=== PATIENT | female | born 1950 | race Caucasian/White ===

== ENCOUNTER → 2017-07-01 10:55 | Outpatient (CLI) | payer MEDICARE, OTHER, SELFPAY ==
--- NOTE | 2017-07-01 10:57 | HPBD_ITS ---
STUDY: DUAL ENERGY X-RAY ABSORPTIOMETRY / DXA REASON FOR EXAM: Female, 67 years old. The patient is postmenopausal. No loss of height. TECHNIQUE: Bone Mineral Density (BMD) measurements of lumbar spine and bilateral hips were obtained. COMPARISON: None. FINDINGS: Lumbar Spine (L1-L4): g/cm2 (0.958) / T-score (-1.8) / Z-score (-0.2) Findings are suggestive of osteopenia with a moderate fracture risk. Left Femur Total: g/cm2 (0.728) / T-score (-2.2) / Z-score (-1.0) Left Femoral Neck: g/cm2 (0.735) / T-score (-2.2) / Z-score (-0.7) Right Femur Total: g/cm2 (0.756) / T-score (-2.0) / Z-score (-0.7) Right Femoral Neck: g/cm2 (0.738) / T-score (-2.2) / Z-score (-0.6) HPBD/Dexa Bone Density Study (HP) IMPRESSION: The patient is considered osteopenic as outlined below according to World Joe Organization (WHO) criteria with a moderate fracture risk. Reference Information: The T-score is the number of standard deviations above or below the standard which is normal for young adults at their peak bone mineral density. The World Health Organization (WHO) interprets the T-scores as follows: Above -1 Normal bone density Between -1 and -2.5 Osteopenia Equal to / or below -2.5 Osteoporosis As a practical clinical guideline, osteopenia may be graded as follows: Mild -1 through -1.5 Moderate -1.6 through -2.0 Severe -2.1 through -2.4 The Z-score is the number of standard deviations above or below age-matched controls. A Z-score of less than -1.5 would be considered abnormal. References: 1. NIH Osteoporosis and Related Bone Diseases http://www.osteo.org 2. International Society for Clinical Densitometry http://www.iscd.org 3. National Osteoporosis Foundation http://www.nof.org Electronically Signed: Eliseo Amaya MD at 13:49 EST Tel [phone], Service support ,
== END ==
PROVIDERS: Family Provider Family Medicine; PCP Family Medicine
DX: Z78.0 Asymptomatic menopausal state (principal); Z13.820 Encounter for screening for osteoporosis
CPT/HCPCS: 77080

== ENCOUNTER 2017-08-01 14:00 | Outpatient (RCR) | payer MEDICARE, OTHER, SELFPAY ==
--- NOTE | 2017-06-20 10:23 | HP.PTEVAL ---
Patient's Visit Information DANISHA DEVINE is a 67 year old F referred to Physical Therapy by DO JOSHUA Hernandez with a diagnosis of ALLEGRA KNEE OA, STRAIN OF MS/FASC/TND LEFT THIGH.. Date of Evaluation: 06/20/17 Physical Therapist: Sonia Trevino Visit Plan Frequency: 2x /Week Duration: 4-6 Weeks Plan: LEFT KNEE AND THIGH US. (PATIENT HAS HOME TENS UNIT AND HAS ALREADY STARTED USING IT WITH SOME BENEFIT). ALLEGRA LE ROM, STRETCHING AND STRENGTHENING. NO LUMBAR TREATMENT AT PATIENTS REQUEST. PATIENT REFUSED 3X'S A WEEK. AGREEABLE TO 2X'S A WEEK ON TRIAL BASIS ONLY. - Subjective Subjective: Work/Leisure: RETIRED 2011. 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 ALSO GOES TO THE [employer]LE[employer] AND WORKS OUT DOING STRETCHING AND TONING ONCE A WEEK. 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 Disability: NOT NOW BUT FROM ABOUT 2011 UNTIL RECENTLY SHE WAS. NOW ON MEDICARE. Present symptoms: LEFT HIP/GROIN/THIGH, LEFT KNEE. RIGHT BUTTOCK PAIN AND ANTERIOR HIP/GROIN. INTERMITTENT MILD RIGHT KNEE PAIN. PATIENT DENIES ALLEGRA LE NUMBNESS AND TINGLING. Present since: LEFT KNEE PAIN STARTED BEGINNING OF MAY 2017 THEN THE LEFT THIGH AND HIP. RIGHT KNEE PAIN ALSO STARTED RECENTLY. LEFT CALF LOCKS UP. Pain Scale: RIGHT KNEE PAIN RANGING 0/10 TO 1/10. LEFT KNEE PAIN RANGING 0/10 TO 10/10. LEFT HIP/THIGH PAIN RANGING 0/10 TO 10/10. Currently: RIGHT KNEE PAIN 0/10, LEFT KNEE PAIN 0/10, LEFT HIP/THIGH PAIN RANGING 0/10 TO 10/10. Commenced as a result of: NO APPARENT REASON OTHER THAN PATIENT SUSPECTS THE ELIPTICAL BECAUSE BECAUSE THIS WAS THE NEWEST ACTIVITY AND WAS ADDED INTO HER ROUTINE IN MARCH 2017. Symptoms at onset: LEFT KNEE. Worse: EXERCISING, DANCING, WALKING, RISING FROM SITTING, BENDING, STANDING, TURNING OVER IN BED, SOMETIMES LYING DOWN, SOMETIMES SITTING, GETTING IN/OUT OF CAR, STEPS. Better: IBUPROFEN, ICE. REFUSES ANY OTHER MEDICINE. Disturbed sleep: YES. Previous history/Previous treatment: HISTORY OF LEFT KNEE PAIN A COUPLE YEARS AGO AND RECEIVED A SHOT AND US AND FULL FULL RECOVERY. NO PRIOR HISTORY OF RIGHT KNEE OR LEFT HIP/THIGH PROBLEMS. HISTORY OF RIGHT SCIATICA FOR YEARS UNTIL SURGERY IN 2013. Gait: INDEP WITH NO AD'S. NO FALLS. GOING VERY SLOW BUT STATES ONCE SHE STARTS DANCING IT FEELS BETTER. 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 Accidents: NO. Unexplained weight loss: NO. Imaging: X-RAYS OF BOTH KNEES AND HIPS ORDERED BY DR. GONZALEZ AT [facility]. STATES DR. GONZALEZ TOLD HER SHE HAS RIGHT KNEE OA, LEFT KNEE MENISCUS TEAR, NORMAL HIPS AND LEFT THIGH STRAIN. SHE REPORTS THAT IF IT KEEPS UP HE WANTS TO DO AN MRI OF HER LEFT LE. PMH: LUNG CANCER WITH LOBECTOMY. NO CHEMO OR RADIATION. LEFT FOOT PLANTAR FASCITIS. ALLEGRA TOES LOCK UP RIGHT > LEFT FOR A COUPLE YEARS. LEAKY HEART VALVE. LUMBAR SURGERY AT [facility] WITH DR. BENITEZ 2013 - NOT SURE OF SPECIFICS BUT IT WORKED. OTHER: PATIENT REPORTS SHE WILL GIVE THIS A WEEK AND IF IT ISN'T BETTER SHE IS QUITING PT. STATES SHE IS NOT GOING TO KEEP COMING BECAUSE OF THE WEATHER. STATES SHE KNOWS HER BACK ACTS OF HERE AND THERE BUT SHE DOES NOT WANT US TO MESS WITH THAT. - Objective THIS PATIENT AMBULATES INDEP'LY INTO PT WITHOUT AD LIMPITNG ON THE LLE AND WITH INCREASED TRUNK FLEXION. INDEP TRANSFER SIT TO STAND WITHOUT UE ASSIST BUT DIFFICULTING INITIATING GAIT ON LLE. GAIT IMPROVES WITH TIME BUT CONSTANT LIMP. LUMBAR SCREENING NOT PERFORMED AT PATIENTS REQUEST. ALLEGRA LE LIGHT TOUCH SENSATION IS INTACT AND SYMMETRICAL. ALLEGRA LE ROM WFL EXCEPT APPROX 25% LOSS OF LEFT KNEE FLEX AND HIP IR/ER COMPARED TO RIGHT. RIGHT LE STRENGTH WITH MMT: HIP FLEX 4/5 WITH TESTING PROVOKING RIGHT HIP/GROIN PAIN, ABD 4/5, ADD 4/5, IR 4/5, ER 4-/5, KNEE EXT 5/5, KNEE FLEX 5/5 ANKLE DORSIFLEXION 5/5. LEFT LE: HIP FLEX 4-/5, ABD 4/5, ADD 4/5, IR 4-/5, ER 3+/5, KNEE EXT 4/5, KNEE FLEX 4/5, ANKLE DORSIFLEX 5/5. LEFT HIP MMT ALL PLANES PROVOKES RIGHT HIP/THIGH PAIN WELL KNEE EXT TESTING. SHE IS ALSO TENDER WITH PALPATION OF THE LEFT MEDIAL KNEE AND ANTERIOR MID 1/3 OF THIGH. SHE STATES SHE FEELS A LUMP IN THE BACK OF THE LEFT KNEE BUT THIS PT DID NOT FEEL IT. MILD EDEMA OF LEFT THIGH AND KNEE COMPARED TO RIGHT. TREATMENT: US TO RIGHT KNEE X 5 HALEY AT 1.3 W/CM2 AND TO LEFT ANT THIGH AT 1.5 W/CM2 X 5 MIN. PATIENT REPORTED DECREASED LLE PAIN WITH WALKING AFTER US. INSTRUCTED PATIENT TO REST LE'S AND AVOID INCREASING PAIN WITH ACTIVITIES. PATIENT COMMUNICATED A GOOD UNDERSTANDING OF RECOMMENDATIONS BUT IS RELUCTANT TO COMPLY. STATES SHE IS PLANNING TO HAVE LEFT KNEE MENISCUS REPAIR SPRING BREAK. - Goals Goal 1:: DECREASE C/O ALLEGRA HIP AND KNEE PAIN. DECREASE C/O LEFT THIGH PAIN. Goal Time Frame: 4-6 Weeks Goal 2:: IMPROVE SITTING, STANDING, WALKING, ADL, RECREATIONAL AND SLEEP FUNCTION Goal Time Frame: 4-6 Weeks Goal 3:: INSTRUCT IN PROPHYLAXIS/HEP Goal Time Frame: 4-6 Weeks - Rehabilitation Potential Physical Therapy Diagnosis: DID NOT TEST LUMBAR SPINE DUE TO PATIENTS RELUCTANCE. Rehabilitation Potential: Fair - Anticipated Interventions Patient/Client Instruction: Educate patient on: Condition, Plan of Care, Risk Factors, Benefits of Fitness Program For the Purpose of:: To improve self management Therapeutic Exercise to Include: Strength training, Flexibilty training, Gait and locomotor training, Passive ROM, Active ROM For the Purpose of:: To decrease pain, To increase ROM, To improve muscle performance and motor function, To improve gait and locomotor functions Cryotherapy (ice pack, ice massage): Yes Thermo therapy (hot pack): Yes Ultrasound (thermal/non thermal): Yes For the Purpose of:: To decrease pain, To decrease swelling/inflammation, To increase ROM Thank you for the opportunity to evaluate your patient. For Medicare and Medicare HMO plans, please review the plan of care and approve it. It will need to be FAXED BACK to us at [phone] for Medicare purposes. Please let me know if there are questions or concerns regarding this plan of care. Physician Signature: Date:
--- NOTE | 2017-08-01 16:05 | HP.PTDCSUM ---
HP - PT D/C Summary It has been my pleasure to treat DANISHA DEVINE under orders from Antolin Vera DO, for the diagnosis of ALLEGRA KNEE OA, STRAIN OF MS/FASC/TND LEFT THIGH. for a total of 6 visit(s). Discharge Date: Please see the following information for a summary of their discharge status. - Subjective Subjective: PATIENT REPORTS SHE CALLED DR. VERA'S OFFICE TO ASK WHAT SHE CAN AND CAN NOT DO AND THE SECTIONAL BELT MOLD ASSEMBLER WAS RUDE. PATIENT REPORTS SHE FELT DISREGUARDED AND NEVER GOT A CALL BACK WITH A RESPONSE. DIFFICULTY INITIATING GAIT AFTER SITTING. PATIENT REPORTS HER LEFT KNEE IS GETTING BETTER BUT HER THIGH IS NOT - IT IS STILL BAD. SHE REPORTS SHE DOES NOT FEEL HER THIGH IS GETTING WORSE - ITS THE SAME. MRI 07/24/17 OF LEFT HIP. PATIENT REPORTS DR. VERA TOLD HER THE SHOT SHE WANTS TO HAVE BY DR. GALLEGOS IN HER HIP IS A GOOD IDEA BUT IF IT DOESN'T HELP THE TEAR SHE WILL NEED TO GO TO [place] TO HAVE SURGERY. 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 HER CONSULT FOR A HIP INJECTION IS NEXT FRIDAY WITH DR. GALLEGOS OR THE NEXT WEEK. SHE IS WONDERING IF SHE SHOULD CONTINUE HER HOME EX'S (STRETCHING AND STRENGTHEING) FOR HER LEFT KNEE TOLERATED AND HOLD PT UNTIL AFTER SHE TRIES A SHOT BECAUSE HER HIP PAIN IS LIMITING HER PT. SHE THINKS SHE CAN WORK THE KNEE AT HOME. - Pain Left thigh Pain Intensity (Out of 10): 5 - Objective Objective/Function: GOOD PROGRESS TOWARD ALL LEFT KNEE GOALS. PATIENT IS NOT MAKING PROGRESS WITH HER LEFT HIP AND HER LEFT HIP IS LIMITING HER LEFT KNEE REHAB TO SOME DEGREE. THIS PATIENT AMBULATES INDEP'LY INTO PT WITHOUT ANY ASSISTIVE DEVICES. SHE HAS A MILD LIMP ON HER LEFT LE AND RELATES THE LIMP TO HER LEFT HIP NOT KNEE. SHE IS REPORTING THAT HER KNEE DOESN'T HURT WHEN SHE WALKS BUT HER HIP DOES. SHE IS ABLE TO INDEP'LY TRANSFER FROM SIT TO STAND WITHOUT UE ASSIST. SHE ALSO DEMONSTRATES THE ABILITY TO LIFT HER LLE ONTO THE TABLE WHEN TRANSFERING FROM SIT TO SUPINE WITHOUT UE ASSIST BUT LEFT HIP NOT DIRECTLY TESTED DUE TO PATIENT REFUSING HIP TESTING OR TREATMENT. HER LEFT KNEE PORT HOLES LOOK GOOD WITHOUT ANY SIGNS OF DRAINAGE OR INFECTION. SHE HAS VERY MINIMAL EDEMA LOCALIZED TO THE LEFT KNEE. VERY MILD ECCYMOSIS IS PRESENT AROUND THE KNEE. SHE HAS FULL LEFT KNEE EXT TO 135 DEG FLEXION IN SUPINE WITH A HEEL SLIDE. SHE DEMONSTRATED AND COMMUNICATED A GOOD UNDERSTANDING OF ALL INSTRUCTIONS AFTER GIVEN TODAY. - Goals Goal 1:: DECREASE C/O ALLEGRA HIP AND KNEE PAIN. DECREASE C/O LEFT THIGH PAIN. Goal Progress: Progressing Goal 2:: IMPROVE SITTING, STANDING, WALKING, ADL, RECREATIONAL AND SLEEP FUNCTION Goal Progress: Progressing Goal 3:: INSTRUCT IN PROPHYLAXIS/HEP Goal Progress: Progressing - Plan Plan: D/C TO INDEP LEFT KNEE HEP AT THIS TIME AND TO FOLLOW UP WITH DR. GALLEGOS AND POSSIBLY HIP SURGEON. PATIENT IS AGREEABLE TO D/C. - D/C Information If there are questions or concerns regarding this patient's physical therapy, please feel free to call me at [phone]. Thank you for the referral of this patient. Sincerely, Sonia Oneal
== END 2017-08-01 19:00 | disposition home or self-care (01) ==
LOC: PT 14:00
PROVIDERS: Family Provider Family Medicine; PCP Family Medicine; Visit Provider Orthopaedic Surgery
DX: M17.12 Unilateral primary osteoarthritis, left knee (principal); M17.11 Unilateral primary osteoarthritis, right knee; S76.312D Strain of muscle, fascia and tendon of the posterior muscle group at thigh level, left thigh, subsequent encounter
CPT/HCPCS: 97035; 97110; 97162; 97530

== ENCOUNTER → 2017-08-12 17:34 | Outpatient (CLI) | payer MEDICARE, OTHER, SELFPAY ==
--- NOTE | 2017-08-12 17:41 | RAD_ITS ---
STUDY: X-RAY - LUMBAR SPINE REASON FOR EXAM: Female, 67 years old. Back pain TECHNIQUE: 3 view(s) of the lumbar spine were obtained. COMPARISON: None FINDINGS: Normal lumbar lordosis. There is no substantial scoliosis. There is a normal alignment of the vertebrae. There is generalized demineralization of the vertebral bodies. There is multi-level degenerative disc disease with multi-level disc space narrowing. There is no demonstrated fracture. The soft tissue structures are unremarkable. RAD/Lumbar Spine 2 or 3 Views IMPRESSION: No acute abnormality. Demineralization and degenerative disc disease. Electronically Signed: Xavi Oshea MD at 12:30 EDT , Service support ,
== END ==
PROVIDERS: Family Provider Family Medicine; PCP Family Medicine; Visit Provider Anesthesiology Pain Medicine
DX: M54.5 Low back pain (principal)
CPT/HCPCS: 72100

== ENCOUNTER → 2017-10-03 14:56 | Outpatient (CLI) | payer MEDICARE, OTHER, SELFPAY ==
[2017-10-03 16:01] LABS: Absolute Lymphocyte Count 1.67 X10^3/ul (0.83-4.51); Absolute Neutrophil Count 3.7 X10^3/uL (2.0-7.7); Basophil# 0.03 X10^3/uL; Basophil% 0.5 % (0-1); Eosinophil# 0.06 X10^3/uL; Hematocrit 40.8 % (37-47); Lymphocyte # 1.67 X10^3/ul (4.0); Lymphocyte % 28.8 % (19-41); Mean Corp Hgb Conc 31.9 g/gl (32-36); Mean Corpuscular Hgb 30.3 pg (27.0-32.0); Mean Corpuscular Volume 95.1 fL (81-99); Mean Platelet Vol. 10.3 fl (6.2-12.0); Monocyte# 0.36 X10^3/uL; Monocyte% 6.2 % (0-10); Neutrophil # 3.67 X10^3/uL (2.7-7.7); Neutrophil % 63.3 % (47-70); Platelet Count 270 K/mm3 (150-450); RBC Distribution Width SD 48.5 fl (35.1-43.9); Red Blood Count 4.29 M/mm3 (4.2-5.4); White Blood Count 5.8 K/mm3 (4.4-11.0)
[2017-10-03 16:03] LABS: POSITIVE COUNT NO; POSITIVE DIFFERENTIAL NO; POSITIVE MORPHOLOGY NO
[2017-10-03 16:13] LABS: AST(SGOT) 20 U/L (15-37); Alanine Aminotransfer ALT/SGPT 23 U/L (13-56); Albumin, Serum 3.3 g/dL (3.2-5.0); Alkaline Phosphatase 101 U/L (45-117); Anion Gap 6 (5-15); BUN 19 mg/dL (7-18); BUN/Creat Ratio 29.8 RATIO (10-20); Calcium,Total 8.4 mg/dL (8.5-10.1); Chloride 110 mmol/L (98-107); Creatinine, Serum 0.64 mg/dL (0.55-1.02); EST Glomerular Filtration Rate 99 mL/min (>60); Est Glom Filt Rate - Afr Amer 120 mL/min (>60); Globulin 3.4 g/dL (2.2-4.2); Glucose 103 mg/dL (74-106); Potassium 4.1 mmol/L (3.5-5.1); Protein, Total 6.7 g/dL (6.4-8.2); Sodium Level 142 mmol/L (136-145)
[2017-10-03 16:19] LABS: Vitamin D,25 Hydroxy 28.1 ng/mL (29.95-100.01)
== END ==
PROVIDERS: Family Provider Family Medicine; PCP Family Medicine; Visit Provider Internal Medicine
DX: E55.9 Vitamin D deficiency, unspecified (principal); R58 Hemorrhage, not elsewhere classified
CPT/HCPCS: 36415; 80053; 82306; 85025

== ENCOUNTER → 2017-11-04 14:18 | Outpatient (CLI) | payer MEDICARE, OTHER, SELFPAY ==
[2017-11-04 15:41] LABS: Absolute Lymphocyte Count 1.27 X10^3/ul (0.83-4.51); Absolute Neutrophil Count 3.8 X10^3/uL (2.0-7.7); Basophil# 0.03 X10^3/uL; Basophil% 0.5 % (0-1); Eosinophil# 0.07 X10^3/uL; Eosinophils% 1.2 % (0-5); Hemoglobin 13.7 g/dl (12.0-15.0); Lymphocyte # 1.27 X10^3/ul (4.0); Lymphocyte % 22.6 % (19-41); Mean Corp Hgb Conc 32.6 g/gl (32-36); Mean Corpuscular Hgb 30.6 pg (27.0-32.0); Mean Corpuscular Volume 93.8 fL (81-99); Monocyte# 0.41 X10^3/uL; Monocyte% 7.3 % (0-10); Neutrophil # 3.83 X10^3/uL (2.7-7.7); Neutrophil % 68.2 % (47-70); Platelet Count 242 K/mm3 (150-450); RBC Distribution Width CV 13.4 % (11.6-14.6); RBC Distribution Width SD 44.7 fl (35.1-43.9); Red Blood Count 4.48 M/mm3 (4.2-5.4); White Blood Count 5.6 K/mm3 (4.4-11.0)
[2017-11-04 15:48] LABS: POSITIVE COUNT NO; POSITIVE DIFFERENTIAL NO; POSITIVE MORPHOLOGY NO
[2017-11-04 16:05] LABS: AST(SGOT) 18 U/L (15-37); Alanine Aminotransfer ALT/SGPT 28 U/L (13-56); Albumin, Serum 3.7 g/dL (3.2-5.0); Alkaline Phosphatase 115 U/L (45-117); Anion Gap 8 (5-15); BUN 11 mg/dL (7-18); BUN/Creat Ratio 16.2 RATIO (10-20); CRP 7.52 mg/L (0.0-3.0); Calcium,Total 8.8 mg/dL (8.5-10.1); Chloride 107 mmol/L (98-107); Creatinine, Serum 0.68 mg/dL (0.55-1.02); EST Glomerular Filtration Rate 92 mL/min (>60); Est Glom Filt Rate - Afr Amer 111 mL/min (>60); Globulin 3.6 g/dL (2.2-4.2); Glucose 92 mg/dL (74-106); Potassium 4.2 mmol/L (3.5-5.1); Protein, Total 7.3 g/dL (6.4-8.2); Rheumatoid Factor < 10.0 IU/mL (<15); Sodium Level 142 mmol/L (136-145)
[2017-11-04 16:53] LABS: Erythrocyte Sedimentation Rate 12 mm/hr (0-30)
[2017-11-07 17:52] LABS: ANTINUCLEAR ANTIBODIES DIRECT Negative (Negative)
[2017-11-13 13:12] LABS: CCP IgG Antibodies 6 units (0-19); HEPATITIS B SURFACE AG Negative (Negative); HLA B27 Negative (.); Hep B Surface Antibodies Non Reactive (.); Hep C Antibodies <0.1 s/co ratio (0.0-0.9)
== END ==
PROVIDERS: Family Provider Family Medicine; PCP Family Medicine; Visit Provider Internal Medicine Rheumatology
DX: M06.4 Inflammatory polyarthropathy (principal); M17.0 Bilateral primary osteoarthritis of knee
CPT/HCPCS: 36415; 80053; 81374; 85025; 85652; 86038; 86140; 86200; 86431; 86706; 86803; 87340

== ENCOUNTER → 2017-11-14 13:59 | Outpatient (CLI) | payer MEDICARE, OTHER, SELFPAY ==
[2017-11-14 14:02] LABS: Pathologist Comment May follow
[2017-11-14 14:37] LABS: RBC /Synovial Fluid 0.007 10^6/uL (0); Synovial Fld Mononuclear WBC % 61.8 %; Synovial Fld Polynuclear WBC # 0.163 10^3/ul; Synovial Fld Polynuclear WBC % 38.2 %
[2017-11-14 14:56] LABS: AUTO B FLUID DILUENT BKGD CT WBC <0.1 RBC <0.01 (W<.1,R<.01); Source- Body Fluid SYNOVIAL
[2017-11-14 14:59] LABS: Appearance /Synovial Fluid Cloudy (CLEAR); Color / Synovial Fluid Yellow (Pale Yellow); Source / Synovial Fluid LEFT KNEE; Viscosity / Synovial Fluid Sl. Viscous (HIGH)
[2017-11-14 15:19] LABS: Lymph 49 %; Monocyte /Synovial Fluid 38 %; Neutrophil 12 % (0-25)
[2017-11-17 10:24] LABS: Pathologist Review Reviewed
== END ==
PROVIDERS: Visit Provider Internal Medicine Rheumatology
DX: M06.4 Inflammatory polyarthropathy (principal); M25.562 Pain in left knee; M71.22 Synovial cyst of popliteal space [Baker], left knee; M17.0 Bilateral primary osteoarthritis of knee
CPT/HCPCS: 87070; 87075; 87205; 89050; 89051; 89060

== ENCOUNTER → 2017-12-05 11:44 | Outpatient (CLI) | payer MEDICARE, OTHER, SELFPAY ==
--- NOTE | 2017-12-05 11:47 | RAD_ITS ---
STUDY: X-RAY CHEST REASON FOR EXAM: Female, 67 years old. Lung cancer history TECHNIQUE: PA and lateral chest COMPARISON: None. FINDINGS: Generalized hyperlucency consistent with underlying COPD. Lungs otherwise clear. Normal cardiomediastinal silhouette, krishna and pleural margins. Small sliding hiatal hernia. No acute osseous process. 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 Electronically Signed: Jose Alfredo Zarate, at 11:53 EDT Tel , Service support ,
== END ==
PROVIDERS: Family Provider Family Medicine; PCP Family Medicine; Visit Provider Family Medicine
DX: C34.90 Malignant neoplasm of unspecified part of unspecified bronchus or lung (principal)
CPT/HCPCS: 71046

== ENCOUNTER → 2018-01-29 15:06 | Outpatient (CLI) | payer MEDICARE, OTHER, SELFPAY ==
[2018-01-29 15:19] LABS: Mucous, Urine 0 SEEN /hpf (<or=2+)
[2018-01-29 15:30] LABS: Color, Urine Yellow (Yellow); Glucose, Dipstick Normal (Normal); Ketone-Dipstick Negative (Negative); Leukocyte Esterase-Dipstick 500 /ul (Negative); Nitrite-Dipstick Negative (Negative); Occult Blood-Urine 250 /ul (Negative); Protein-Dipstick 15 mg/dl (Negative); Specific Gravity, Urine 1.015 (1.002-1.030); Urine Bilirubin Dipstick Negative (Negative); Urine Clarity Sl. Cloudy (Clear); Urine Urobilinogen Normal (Normal)
[2018-01-29 15:41] LABS: Red Blood Cells-Urine 50-100 SEEN /hpf (0-5); White Blood Cells >100 SEEN /hpf (0-5)
[2018-01-29 15:42] LABS: Bacteria 1+ /hpf (None Seen); Squamous Epithelial Cells - UA 0-5 SEEN /hpf (5-10)
== END ==
PROVIDERS: Family Provider Family Medicine; PCP Family Medicine; Visit Provider Nurse Practitioner Family
DX: R30.0 Dysuria (principal)
CPT/HCPCS: 81001; 87086; 87088

== ENCOUNTER → 2018-05-06 17:09 | Outpatient (CLI) | payer MEDICARE, OTHER, SELFPAY ==
[2018-04-21 15:52] VITALS: BMI 27.4
--- NOTE | 2018-05-06 17:12 | RAD_ITS ---
STUDY: X-RAY - THORACIC SPINE REASON FOR EXAM: Female, 68 years old. Upper back pain. TECHNIQUE: 2 view(s) of the thoracic spine were obtained on 3 films. COMPARISON: None. FINDINGS: Normal kyphosis of the thoracic spine. There is no substantial scoliosis. There is endplate spondylosis of a few lower thoracic vertebrae, most prominently at T9-10. There is narrowing of the T9-10 intervertebral disc space. The spinal soft tissue structures are unremarkable. Incidental note of surgical clips in the posterior left perihilar tissues. RAD/Thoracic Spine 2 Views IMPRESSION: Degenerative changes of the thoracic spine, as noted. Electronically Signed: Yobany Vargas MD at 17:14 EST , Service support ,
--- OUTSIDE RECORDS SUMMARY | 2018-06-22 22:19 | XMS RPT_ITS ---
:1950 Author Organization OHIP Support Name Relationship Address Phone GREG DEVINE Unavailable [address] + [address] [place] [address] R Unavailable Unavailable Unavailable GREG DEVINE Unavailable [address] + [address] [place] [address] R Unavailable Unavailable Unavailable GREG DEVINE Unavailable [address] + [address] [place] [address] R Unavailable Unavailable Unavailable R Unavailable Unavailable Unavailable R Unavailable Unavailable Unavailable R Unavailable Unavailable Unavailable R Unavailable Unavailable Unavailable R Unavailable Unavailable Unavailable R Unavailable Unavailable Unavailable R Unavailable Unavailable Unavailable R Unavailable Unavailable Unavailable R Unavailable Unavailable Unavailable R Unavailable Unavailable Unavailable R Unavailable Unavailable Unavailable R Unavailable Unavailable Unavailable R Unavailable Unavailable Unavailable R Unavailable Unavailable Unavailable GREG DEVINE Unavailable [address] + [address] [place] [address] R Unavailable Unavailable Unavailable GREG DEVINE Unavailable [address] + [place] [address] GREG DEVINE Unavailable [address] + [place] [address] GREG DEVINE Unavailable [address] + [address] [place] [address] R Unavailable Unavailable Unavailable GREG DEVINE Unavailable [address] + [address] [place] [address] R Unavailable Unavailable Unavailable GREG DEVINE Unavailable [address] + [place] [address] GREG DEVINE Unavailable [address] + [place] [address] GREG DEVINE Unavailable [address] + [address] [place] [address] R Unavailable Unavailable Unavailable GREG DEVINE Unavailable [address] + [address] [place] [address] R Unavailable Unavailable Unavailable Care Team Providers Name Role Phone DR. SIA MENDOZA DO Attending Unavailable BROWN, BEAN Primary Care Unavailable IGNACIO ZHANG DO Attending Unavailable BROWN, BEAN Primary Care Unavailable DANIEL WADE Attending Unavailable TRICIA NIEVES Referring Unavailable TRICIA NIEVES Attending Unavailable SIA MENDOZA Referring Unavailable Doris Gallegos Attending Unavailable Basali Ayman Referring Unavailable Brown, Bean Primary Care Unavailable Brown, Bean Attending Unavailable Brown, Bean Referring Unavailable Brown, Bean Attending Unavailable Brown, Bean Referring Unavailable Brown, Bean Primary Care Unavailable Antolin Vera Attending Unavailable Chuy, Antolin Referring Unavailable Brown, Bean Primary Care Unavailable Sia Mendoza Attending Unavailable Brown, Bean Primary Care Unavailable BasalDoris delgadillo Attending Unavailable Brown, Bean Primary Care Unavailable Sia Mendoza Attending Unavailable Sia Mendoza Referring Unavailable Brown, Bean Primary Care Unavailable Annabelle Dunbar Attending Unavailable Francoe Efewongbe Attending Unavailable Brown, Bean Referring Unavailable Brown, Bean Primary Care Unavailable Olekarene Efewongbe Attending Unavailable Oleghe, Efewongbe Referring Unavailable Brown, Bean Primary Care Unavailable Myke Tapiama Attending Unavailable Vellanki, Hilda Referring Unavailable Brown, Bean Primary Care Unavailable VellankiMykema Attending Unavailable Brown, Bean Primary Care Unavailable Vellanki, Hilda Referring Unavailable Rohan Peralta Attending Unavailable Brown, Bean Referring Unavailable Brown, Bean Attending Unavailable Brown, Bean Referring Unavailable Brown, Bean Attending Unavailable Brown, Bean Referring Unavailable Brown, Bean Primary Care Unavailable Keo Bassett [employer] Attending Unavailable Brown, Bean Referring Unavailable Brown, Bean Primary Care Unavailable Keo Bassett [employer] Attending Unavailable Brown, Bean Referring Unavailable Brown, Bean Primary Care Unavailable Keo Bassett [employer] Attending Unavailable BassettKeo [employer] Referring Unavailable Brown, Bean Primary Care Unavailable Rohan Peralta Attending Unavailable Brown, Bean Referring Unavailable BassettKeo peterson [employer] Attending Unavailable Brown, Bean Referring Unavailable BassettKeo [employer] Attending Unavailable Brown, Bean Referring Unavailable Brown, Bean Attending Unavailable Brown, Bean Referring Unavailable PROBLEMS PROBLEMS DATE TYPE CONDITION / CODE ATTENDING STATUS SOURCE 06/03/2018 Unknown C34.90 - Malignant Bean Knapp Active [place] neoplasm of Community unspecified part of Hospital unspecified bronchus Repository or lung / C34.90(ICD-10) 06/03/2018 Unknown Z23 - Encounter for Bean Knapp Active [place] immunization / Community Z23(ICD-10) Hospital Repository 01/28/2018 Unknown R30.0 - Dysuria / Bassett, Keo Active [place] R30.0(ICD-10) [facility] Repository 11/28/2017 Unknown H60.90 - Unspecified Fabian, Rohan Active [place] otitis externa, Community unspecified ear / Hospital H60.90(ICD-10) Repository 11/15/2017 Unknown M06.4 - Inflammatory Vellanki, Active [place] polyarthropathy / [facility] M06.4(ICD-10) Hospital Repository 11/15/2017 Unknown M25.562 - Pain in Vellanki, Active [place] left knee / 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 SIA Tang Repository 08/12/2017 Admitting Encounter for [facility] DR. SIA Tang malignant neoplasm Repository of cervix / Z12.4(ICD-10) 08/12/2017 Admitting Vitamin D KELLY DO, Active [facility] Diagnosis deficiency, DR. SIA Tang unspecified / Repository E55.9(ICD-10) 08/12/2017 Admitting Encounter for KELLY DO, Active [facility] Diagnosis screening for human DR. SIA Tang papillomavirus (HPV) Repository / Z11.51(ICD-10) 08/05/2017 Unknown M17.12 - Unilateral Antolin Vera Active [facility] osteoarthritis, left Hospital knee / Repository M17.12(ICD-10) PROCEDURES PROCEDURES No Procedure Records FoundRESULTS RESULTS CHEST WITHOUT Observed: 06/08/2018 Status: F Source: [facility] CONTRAST 8:23 AM [facility] Imaging Services [address] [place] [address] Chest without Contrast MR#: [id number] Acct: [id number] Name: VALERY DEVINE Rep #: [id number] : 1950 F 68 From: Olayinka Arreguin MD PCP: Bean Knapp DO Status: REG CLI Study: Chest without Contrast Date of Exam: 06/08/18 Exam# [id number] Ordering Dr: Bean Knapp DO STUDY: CT CHEST WITHOUT CONTRAST REASON FOR EXAM: Female, 68 years old. Follow-up lung cancer RADIATION DOSAGE (If Supplied By Facility): CTDIvol = ( 7.54 ) mGy, DLP = ( 286.53 ) mGycm TECHNIQUE: Transaxial imaging was performed without the administration of intravenous contrast material. Individualized dose optimization techniques were used for this CT. COMPARISON: Report of prior study of 04/04/2012 FINDINGS: There are mild emphysematous changes of the lungs. There are findings consistent with left upper lobectomy with left hemithoracic volume loss. There is no demonstrated pleural abnormality. The heart size is within normal limits. Coronary arterial calcifications are present. There are surgical clips of the left hilus and mediastinum. There is no evidence of hilar mass or adenopathy. Normal unenhanced pulmonary arteries. Normal aorta arch and descending thoracic aorta. There are multi-level degenerative changes of the thoracic spine. There is a moderate-sized hiatal hernia. CT/Chest without Contrast IMPRESSION: Mild emphysematous changes of the lungs. Findings consistent with left upper lobectomy with associated findings of left hemithoracic volume loss. Surgical clips are seen in the left hilus and mediastinum. There is no evidence of new or recurrent mass or adenopathy. Moderate sized hiatal hernia. Degenerative changes of the visualized thoracic spine. Electronically Signed: Olayinka Arreguin MD at 17:22 EST , Service support , CC: Bean Knapp DO Infrastructure Administrator: Signed INTERNAL MEDICINE Observed: 06/03/2018 Status: F Source: [place] OFFICE VISIT 3:18 PM [facility] [address] [place] [address] [place] [address] OFFICE VISIT Date of Service: 06/03/18 MR#: [id number] Acct: [id number] Name: VALERY DEVINE Rep #: [id number] : 1950 Provider: Bean Knapp DO Age/Sex: 68/F Location: [facility] Status: Signed Intake Vital Signs06/03/18 Body Mass Index (BMI) 27.4 06/03/18 Height 5 ft 4 in 06/03/18 Blood Pressure 88/54 L 06/03/18 Blood Pressure Location Lt brachial Intake Visit Reasons: 6 wk FU Chief Complaint: f/u shingles post pain Is patient in pain?: Yes (abdominal pain and buring) Pain scale (1-10): 2 Allergies Sulfa (Sulfonamide Antibiotics) Allergy (Intermediate, Verified 04/21/18 15:55) sores in mouth amoxicillin [From Amoxil] Adverse Reaction (Intermediate, Verified 04/21/18 15:55) yeast AND bladder infections Medications ergocalciferol (vitamin D2) 50,000 unit capsule 50,000 unit PO QWEEK #14 cap 10/08/17 [Rx Confirmed 03/24/18] esomeprazole magnesium 40 mg capsule,delayed release 40 mg PO QDAY #90 cap 10/08/17 [Rx Confirmed 03/24/18] Post menopausal: Yes PFSH Medical History Vitamin D deficiency (Chronic) Sciatica (Chronic) Lumbar radiculopathy (Chronic) GERD (gastroesophageal reflux disease) (Chronic) Lung cancer (Chronic) Anxiety (Chronic) History of shingles (Acute) Surgical History History of back surgery (Acute) History of section (Acute) History of colonoscopy (Acute) History of cystoscopy (Acute) History of esophagogastroduodenoscopy (EGD) (Acute) History of lateral meniscus repair of left knee (Acute) History of lobectomy of lung (Acute) history of bunionectomy (Acute) Family History Aunt Colon cancer Diabetes Mother Thyroid disorder Heart disease Son Hypercholesteremia Grandmother Heart disease Social History Smoking Status: Former smoker alcohol intake: current alcohol intake frequency: holidays/special occasions only substance use type: does not use HPI HPI Chief Complaint: f/u shingles post pain Details: VALERY DEVINE, is a 68 F who presents to the office today for checkup following a severe bout of postherpetic neuralgia and to discuss a follow- up on her lung cancer. She did have a nerve block done by the pain center said it did not help much but the pain of the shingles is gradually abating. She also has history of lung cancer was treated at [facility] and wants a follow-up CT scan. ROS Const Constitutional: No weight change, body ache, chills, fatigue, sleep problems, fever(s), change in appetite, snoring, weakness, frequent falls, headache(s) or excessive sweating Eyes Eyes: No change in vision, eye pain, light sensitivity or blurry vision ENT ENT: No headache(s), abnormal hearing, ear pain, tinnitus, nasal congestion, sore throat or neck pain Resp Respiratory: No snoring, cough, shortness of breath or wheezing Cardio Cardiology: No excessive sweating, chest pain at rest, chest pain with exertion, shortness of breath, dyspnea on exertion, palpitations, orthopnea or lightheadedness Gastro GI: No abdominal pain, change in bowel habits, constipation, diarrhea, vomiting, nausea/dyspepsia or cramping Genitourinary-Female: No burning urination, painful urination, urinary incontinence, urinary frequency, abnormal vaginal bleeding, pelvic pain or other Musc Musculoskeletal: No neck pain, abnormal walking, joint pain, back pain, limited range of motion, numbness, tingling or muscle weakness Skin Skin: Positive for itching (abdomen, upper back) and lesions ('crustyspot on back where shingles were. ); no redness, dry skin, wounds or rash Neuro Neurology: No weakness, frequent falls, headache(s), abnormal hearing, abnormal speech, dizziness, memory loss, abnormal walking, numbness or tingling Psych Psychiatric: No change in appetite, No memory loss, No anxiety, No depression, No Thoughts of harming yourself/Others Endo Endocrine: No fatigue, excessive sweating, cold intolerance, increased thirst/drinking, heat intolerance, flushing or increased hunger Aller/Imm Allergy/Immunologic: Positive for itchy eyes (abdomen, upper back); no wheezing, hives or seasonal allergy symptoms Tom/Lymp Hematologic/Lymphatic: No easy bleeding, easy bruising or enlarged lymph nodes Exam Const General: cooperative, healthy appearing, no acute distress Resp Effort AND Inspection: normal respiratory effort Auscultation: Bilateral: Clear to Auscultation Cardio Rate: regular rate Rhythm: regular rhythm Musc Musculoskeletal: No muscle weakness Skin General: no rashes or lesions noted Extrem General: normal to inspection Psych Appearance: grossly normal Mood: congruent mood Affect: normal affect Thought Process: normal Immunizations Pneumovax 23 Performing Provider: Bean Knapp DO Administered by: Monique Roger on 06/03/18 14:41 Dose Route Admin Location Lot Number Expiration Date [facility] City Superintendent 0.5 mL IM Left Deltoid [id number] 11/06/19 6613-4040-69 [employer] AND D VIS Given Date VIS Publication Date 06/03/18 09/16/14 Eligibility Eligibility Date Assessment AND Plan Problems 1. Post herpetic neuralgia B02.29 2. Malignant neoplasm of lung, unspecified laterality, unspecified part of lung C34.90 3. Anxiety F41.9 Plan This patient was seen for follow-up for postherpetic neuralgia, which seems to be subsiding by itself. She had questions about shingles vaccine and I told her was appropriate 6 months after her acute onset of shingles but that the new vaccine is not available and she needs to call the pharmacy about availability. She was due to have her Pneumovax 23 and that was given. And I ordered a CT scan because of her history of lung cancer. I will notify her as to follow-up upon receipt of the CT scan results. Orders Orders: Medications Discontinued: Pneumovax 23 (pneumococcal 23-saumya ps vaccine) Disconti0.5 mL IM ONCE 0.5 mL 0RF NS Z23 nued Reason: Office Medication has been Documented as gi shiela Coding Level of Care Code Off vis,est,level 3 Diagnoses Post herpetic neuralgia B02.29 Malignant neoplasm of lung, unspecified laterality, unspecified part of lung C34.90 Laterality: unspecified laterality Lung location: unspecified part of lung Anxiety F41.9 06/03/18 1518 <Electronically signed by Bean Knapp DO> Date Bean Knapp DO Cosigner Signature: Date (if applicable) CC: THORACIC SPINE 2 Observed: 05/06/2018 Status: F Source: [facility] VIEWS 5:13 PM [facility] Imaging Services [address] [place] [id number] Thoracic Spine 2 Views MR#: [id number] Acct: [id number] Name: VALERY DEVINE Rep #: [id number] : 1950 F 68 From: Marcus Vargas MD PCP: Bean Knapp DO Status: REG CLI Study: Thoracic Spine 2 Views Date of Exam: 05/06/18 Exam# [id number] Ordering Dr: Doris Gallegos MD STUDY: X-RAY - THORACIC SPINE REASON FOR EXAM: Female, 68 years old. Upper back pain. TECHNIQUE: 2 view(s) of the thoracic spine were obtained on 3 films. COMPARISON: None. FINDINGS: Normal kyphosis of the thoracic spine. There is no substantial scoliosis. There is endplate spondylosis of a few lower thoracic vertebrae, most prominently at T9-10. There is narrowing of the T9-10 intervertebral disc space. The spinal soft tissue structures are unremarkable. Incidental note of surgical clips in the posterior left perihilar tissues. RAD/Thoracic Spine 2 Views IMPRESSION: Degenerative changes of the thoracic spine, as noted. Electronically Signed: Yobany Vargas MD at 17:14 EST , Service support , CC: Doris Gallegos MD; Bean Knapp DO Infrastructure Administrator: Signed INTERNAL MEDICINE Observed: 04/22/2018 Status: F Source: [facility] OFFICE VISIT 8:14 AM [facility] [address] [place] [address] [place] [address] OFFICE VISIT Date of Service: 04/21/18 MR#: [id number] Acct: [id number] Name: VALERY DEVINE Rep #: [id number] : 1950 Provider: Bean Knapp DO Age/Sex: 68/F Location: [facility] Status: Signed Intake Vital Signs04/21/18 Height 5 ft 4 in 04/21/18 Weight: 160 lb Intake Visit Reasons: Pain Chief Complaint: burning pain and itching Is patient in pain?: Yes (Back, Rib ) Pain scale (1-10): 10 Allergies Sulfa (Sulfonamide Antibiotics) Allergy (Intermediate, Verified 04/21/18 15:55) sores in mouth amoxicillin [From Amoxil] Adverse Reaction (Intermediate, Verified 04/21/18 15:55) yeast AND bladder infections Medications ergocalciferol (vitamin D2) 50,000 unit capsule 50,000 unit PO QWEEK #14 cap 10/08/17 [Rx Confirmed 03/24/18] esomeprazole magnesium 40 mg capsule,delayed release 40 mg PO QDAY #90 cap 10/08/17 [Rx Confirmed 03/24/18] ibuprofen 400 mg tablet 400 mg PO BID PRN #180 tab 02/05/18 [Rx Confirmed 03/24/18] nortriptyline 50 mg capsule 50 mg PO QHS #30 cap 04/21/18 [Rx Confirmed 04/21/18] pimecrolimus 1 % topical cream 1 applic TOPICAL BID #60 g 04/21/18 [Rx Confirmed 04/21/18] Post menopausal: Yes Nurse's Note: Pt presents today for a f/u on shingles. Pt c/o constant pain. PFSH Medical History Vitamin D deficiency (Chronic) Sciatica (Chronic) Lumbar radiculopathy (Chronic) GERD (gastroesophageal reflux disease) (Chronic) Lung cancer (Chronic) Anxiety (Chronic) History of shingles (Acute) Surgical History History of back surgery (Acute) History of section (Acute) History of colonoscopy (Acute) History of cystoscopy (Acute) History of esophagogastroduodenoscopy (EGD) (Acute) History of lateral meniscus repair of left knee (Acute) History of lobectomy of lung (Acute) history of bunionectomy (Acute) Family History Aunt Colon cancer Diabetes Mother Thyroid disorder Heart disease Son Hypercholesteremia Grandmother Heart disease Social History Smoking Status: Former smoker alcohol intake: current alcohol intake frequency: holidays/special occasions only substance use type: does not use HPI HPI Chief Complaint: burning pain and itching Details: VALERY DEVINE, is a 68 F who presents to the office today for pain and a rash with itching. The rash started when she started the lyrica, which did not help ROS Const Constitutional: Positive for body ache, sleep problems and fatigue; no anorexia, chills, fever(s), decreased energy, malaise, night sweats, weight change, other, snoring, weakness, frequent falls, headache(s), abnormal sleep pattern, change in appetite or excessive sweating Eyes Eyes: No blurry vision, change in vision, double vision, discharge, dry eyes, bulging eyes, floaters, eye pain, light sensitivity, spots in vision, tunnel vision, other or visual disturbances ENT ENT: No ear pain, ear discharge, ear pressure, hearing loss, tinnitus, dizziness/vertigo, balance problems, nosebleed/epistaxis, nasal congestion, nasal obstruction, nose pain, sinus pressure, sinus pain, nasal discharge, post nasal drip, facial pain, dental pain, dry mouth, bad breath, hoarseness, mouth lesions, mouth pain, sore throat, difficulty swallowing, neck pain, abnormal hearing, headache(s), other, lip swelling, throat swelling or tongue swelling Resp Respiratory: No cough, change in phlegm color, chest congestion, excessive phlegm production, hemoptysis, pain on inspiration, shortness of breath, pain with cough, snoring, stridor, other or wheezing Cardio Cardiology: No chest pain at rest, chest pain with exertion, leg pain with exertion, shortness of breath, dyspnea on exertion, generalized swelling, irregular heart rhythm, lightheadedness, orthopnea, radiating jaw, neck or arm pain, fast heart rate, slow heart rate, palpitations, other or excessive sweating Gastro GI: No abdominal pain, belching, bloating, change in bowel habits, change in stool character, coffee ground emesis, constipation, cramping, diarrhea, heartburn, difficulty swallowing, feeling full early, excessive flatus, incontinent of stools, Vomiting blood/hematemesis, blood in stool, loose stools, Black,tarry stools, nausea/dyspepsia, pain with swallowing, vomiting or other Genitourinary-Female: No difficulty urinating, burning urination, painful urination, urinary incontinence, urinary frequency, urinary urgency, urinary hesitancy, urinary retention, blood in urine, Frequent nighttime urination/ nocturia, post void dribbling, suprapubic fullness, side pain, sexual problems, genital lesions, genital itching, hot flashes, abnormal periods, abnormal vaginal bleeding, absent period, painful periods, light periods, heavy periods, difficulty getting , painful intercourse, pelvic pain, vaginal dryness, vaginal odor, Vaginal Itching or other Musc Musculoskeletal: No joint pain, back pain, deformity, joint swelling, limited range of motion, loss of height, muscle cramps, muscle weakness, decreased muscle mass, body aches, neck pain, radiating pain into limb, stiffness, other, abnormal walking, numbness or tingling Skin Skin: No acne, hair loss, change in hair, nail changes, boil, change in skin color, dry skin, redness, excessive hair growth, yellowing of the skin, lesions, rash, skin pain, skin ulcer, sores, skin swelling, wounds, other or itching Breast Breast: No change in breast shape, breast lump, breast pain, breast skin changes, breast swelling, nipple discharge or other Neuro Neurology: No abnormal walking, abnormal hearing, abnormal movements, abnormal speech, unsteady gait/balance, dizziness, weakness, frequent falls, headache(s), lack of coordination, loss of vision, numbness, tingling, visual disturbances, restless legs, fainting, tremor(s), other, behavioral changes, confusion or memory loss Psych Psychiatric: No abnormal sleep pattern, No lack of enjoyment, No anxiety, No behavioral changes, No change in appetite, No confusion, No depression, No difficulty concentrating, No hopelessness, No irritability, No memory loss, No mood swings, No panic attacks, No paranoia, No Thoughts of harming yourself/Others, No hallucinations, No other Endo Endocrine: Positive for fatigue; no change in body appearance, cold intolerance, excessive sweating, flushing, heat intolerance, increased thirst/drinking, increased hunger, increased urination or other Aller/Imm Allergy/Immunologic: No food intolerance, itchy eyes, lip swelling, seasonal allergy symptoms, throat swelling, tongue swelling, hives, wheezing or other Tom/Lymp Hematologic/Lymphatic: No easy bleeding, easy bruising, enlarged lymph nodes or other Exam Const General: cooperative, healthy appearing, no acute distress Resp Effort AND Inspection: normal respiratory effort Auscultation: Bilateral: Clear to Auscultation Cardio Rate: regular rate Rhythm: regular rhythm Musc Musculoskeletal: No muscle weakness Skin Rashes: rashes noted (on her left side a diffuse superficial rash, looks like excoriation ) Psych Affect: normal affect Assessment AND Plan 1. Sciatica M54.30 2. Post herpetic neuralgia B02.29 Plan Pamelor started to control pain and assist sleep. The rash, which appears to be a excematous rash was treated with Elidel. Plan Detail Other Medications New: pimecrolimus 1% (Elidel) do not use occlusive dressi1 applic Topical BID 60 grams 1RF ng Discontinued: tramadol Discontinued Reason: Discontinued by PCP/50 mg PO Q12H PRN 14 tabs 0RF pain other physicians Health Concerns Pt. was told pain could last months, she may desire neurology consult, but I doubt if there is any other path to follow. I may increase pamelor if not effective. Coding Level of Care Code Off vis,est,level 3 Diagnoses Sciatica M54.30 Post herpetic neuralgia B02.29 04/22/18 0814 <Electronically signed by Bean Knapp DO> Date Bean Knapp DO Cosigner Signature: Date (if applicable) CC: INTERNAL MEDICINE Observed: 04/21/2018 Status: F Source: CONSTANCE OFFICE VISIT 8:44 AM [facility] [place] [address] [place] [address] OFFICE VISIT Date of Service: 04/14/18 MR#: [id number] Acct: [id number] Name: VALERY DEVINE Zaida Rep #: [id number] : 1950 Provider: Keo Bassett NP Age/Sex: 68/F Location: [facility] Status: Signed Intake Vital Signs04/14/18 Height 5 ft 4 in 04/14/18 Blood Pressure 119/81 H 04/14/18 Blood Pressure Location Rt brachial 04/14/18 Blood Pressure Position Sitting Intake Visit Reasons: Burning pain AND itching Chief Complaint: burning pain and itching Is patient in pain?: Yes (sides and lower abdomen where shingles was) Pain scale (1-10): 10 Allergies Sulfa (Sulfonamide Antibiotics) Allergy (Intermediate, Verified 03/24/18 15:29) sores in mouth amoxicillin [From Amoxil] Adverse Reaction (Intermediate, Verified 03/24/18 15:29) yeast AND bladder infections Medications ergocalciferol (vitamin D2) 50,000 unit capsule 50,000 unit PO QWEEK #14 cap 10/08/17 [Rx Confirmed 03/24/18] esomeprazole magnesium 40 mg capsule,delayed release 40 mg PO QDAY #90 cap 10/08/17 [Rx Confirmed 03/24/18] ibuprofen 400 mg tablet 400 mg PO BID PRN #180 tab 02/05/18 [Rx Confirmed 03/24/18] tramadol 50 mg tablet 50 mg PO Q12H PRN #14 tab 04/07/18 [Rx] capsaicin 0.075 % topical cream 1 applic TOPICAL TID #57 g 04/14/18 [Rx Confirmed 04/14/18] hydroxyzine HCl 50 mg tablet 50 mg PO QHS PRN #30 tab 04/14/18 [Rx Confirmed 04/14/18] pregabalin 75 mg capsule 75 mg PO BID #60 cap 04/14/18 [Rx Confirmed 04/14/18] Post menopausal: Yes PFSH Medical History Vitamin D deficiency (Chronic) Sciatica (Chronic) Lumbar radiculopathy (Chronic) GERD (gastroesophageal reflux disease) (Chronic) Lung cancer (Chronic) Anxiety (Chronic) Surgical History History of back surgery (Acute) History of section (Acute) History of colonoscopy (Acute) History of cystoscopy (Acute) History of esophagogastroduodenoscopy (EGD) (Acute) History of lateral meniscus repair of left knee (Acute) History of lobectomy of lung (Acute) history of bunionectomy (Acute) Family History Aunt Colon cancer Diabetes Mother Thyroid disorder Heart disease Son Hypercholesteremia Grandmother Heart disease Social History Smoking Status: Former smoker alcohol intake: current alcohol intake frequency: holidays/special occasions only substance use type: does not use HPI HPI Chief Complaint: burning pain and itching Details: VALERY DEVINE, is a 68 F who presents to the office today for acute complaints of continual burning and itching to her left rib, with back and left flank superficial pain. patient has a past medical history as listed above. Patient recently was diagnosed with shingles and treated with antivirals, steroids and gabapentin. The patient states she has completed her antivirals and steroids and is continuing to take the gabapentin. She complains of a worsening burning and itching to her left rib, with back and left flank. She states gabapentin and ibuprofen have only had a very mild effect on the pain and wonders if there is a different medication to try. She previously refused tramadol. She denies any other aggravating or alleviating factors. The patient otherwise denies any fever, chills, nausea, vomiting, shortness of breath, chest pain or pressure, palpitations, orthopnea, lower extremity edema, syncope or presyncopal episodes. ROS Const Constitutional: Positive for sleep problems (due to pain and itch); no weight change, body ache, chills, fatigue, fever(s), change in appetite, snoring, weakness, frequent falls, headache(s) or excessive sweating Eyes Eyes: No change in vision, eye pain, light sensitivity or blurry vision ENT ENT: No headache(s), abnormal hearing, ear pain, tinnitus, nasal congestion, sore throat or neck pain Resp Respiratory: No snoring, cough, shortness of breath or wheezing Cardio Cardiology: No excessive sweating, chest pain at rest, chest pain with exertion, shortness of breath, dyspnea on exertion, palpitations, orthopnea or lightheadedness Gastro GI: No abdominal pain, change in bowel habits, constipation, diarrhea, vomiting, nausea/dyspepsia or cramping Genitourinary-Female: No burning urination, painful urination, urinary incontinence, urinary frequency, abnormal vaginal bleeding, pelvic pain or other Musc Musculoskeletal: No neck pain, abnormal walking, joint pain, back pain, limited range of motion, numbness, tingling or muscle weakness Skin Skin: Positive for itching and other (burning skin where shingles were); no redness, dry skin, lesions, wounds or rash Breast Breast: Positive for other (burning skin where shingles were) Neuro Neurology: No weakness, frequent falls, headache(s), abnormal hearing, abnormal walking, numbness, tingling, abnormal speech, dizziness or memory loss Psych Psychiatric: No change in appetite, No memory loss, No anxiety, No depression, No Thoughts of harming yourself/Others Endo Endocrine: No fatigue, excessive sweating, cold intolerance, increased thirst/drinking, heat intolerance, flushing or increased hunger Aller/Imm Allergy/Immunologic: Positive for itchy eyes; no wheezing, hives or seasonal allergy symptoms Tom/Lymp Hematologic/Lymphatic: No easy bleeding, easy bruising or enlarged lymph nodes Exam Const General: cooperative, comfortable, no acute distress Nutritional Appearance: average body habitus, well nourished Orientation: alert, oriented x3 Limitations: mental status not altered Eyes General: appearance normal, both eyes and all related structures Resp Effort AND Inspection: normal respiratory effort, able to speak in complete sentences, normal respiratory pattern, symmetric chest movement, no audible wheezes, no cough Auscultation: Bilateral: Clear to Auscultation Cardio Palpation: normal PMI Rate: regular rate Heart Sounds: S1 normal, S2 normal, normal S1 and S2, no click, no gallops, no murmurs, no rubs Musc Musculoskeletal: No joint tenderness, decreased ROM or muscle weakness Skin General: no rashes or lesions noted, elasticity normal, turgor normal Lesions: no lesions Rashes: no rashes Other: Left flank left back left rib healed shingle lesions no open areas Neuro General: alert, awake, oriented x3, CN's II-XI intact bilaterally Speech: speech normal Gait: normal gait Motor: muscle tone normal throughout Extrem General: normal to inspection, normal gait, no edema, no pedal edema Psych Appearance: grossly normal Mental Status: mental status grossly normal Affect: normal affect Attitude: cooperative Thought Process: normal Assessment AND Plan Problems 1. Post herpetic neuralgia B02.29 2. Generalized pruritus L29.9 Plan Discontinue gabapentin and start Lyrica 75 twice a day. Patient also given capsaicin cream as needed 3 times a day. Patient educated on medication side effects. Patient educated on signs and symptoms that would warrant emergency medical care. Will follow up in 4-6 weeks. May continue with OTC analgesics as well as she states she is unable to tolerate any narcotic analgesia. Vistaril PRN itching added as well, discussed potential side effects of medication. This note was generated with [employer] dictation software. It may contain incorrect words, spelling, and punctuation that were not noted in checking the note before signing. Medications New: capsaicin 0.075% do not wash area for at least 30 mi1 applic Topical TID 57 grams 3RF n after application - no heat to area Discontinued: gabapentin Discontinued Reason: Discontinued by PCP/o600 mg PO TID 90 tabs 0RF B02.29 ther physicians Plan Detail Follow Up 4 Weeks Coding Level of Care Code Off vis,est,level 3 Diagnoses Post herpetic neuralgia B02.29 Generalized pruritus L29.9 04/21/18 0844 <Electronically signed by Keo CRAWFORD> Date Keo CRAWFORD Cosigner Signature: Date (if applicable) CC: INTERNAL MEDICINE Observed: 03/31/2018 Status: F Source: CONSTANCE OFFICE VISIT 2:03 PM [facility] [address] [place] [address] [place] [address] OFFICE VISIT Date of Service: 03/27/18 MR#: [id number] Acct: [id number] Name: VALERY DEVINE Zaida Rep #: [id number] : 1950 Provider: Keo Bassett NP Age/Sex: 67/F Location: [facility] Status: Signed Intake Vital Signs03/27/18 Height 5 ft 4 in Intake Visit Reasons: rash AND burning pain in back AND legs Chief Complaint: rash and burning on legs and back Is patient in pain?: Yes (back and sides) Pain scale (1-10): 10 Allergies Sulfa (Sulfonamide Antibiotics) Allergy (Intermediate, Verified 03/24/18 15:29) sores in mouth amoxicillin [From Amoxil] Adverse Reaction (Intermediate, Verified 03/24/18 15:29) yeast AND bladder infections Medications ergocalciferol (vitamin D2) 50,000 unit capsule 50,000 unit PO QWEEK #14 cap 10/08/17 [Rx Confirmed 03/24/18] esomeprazole magnesium 40 mg capsule,delayed release 40 mg PO QDAY #90 cap 10/08/17 [Rx Confirmed 03/24/18] ibuprofen 400 mg tablet 400 mg PO BID PRN #180 tab 02/05/18 [Rx Confirmed 03/24/18] prednisone 50 mg tablet 50 mg PO DAILY #5 tab 03/25/18 [Rx Confirmed 03/25/18] valacyclovir 1 gram tablet 1,000 mg PO TID 7 Days #21 tab 03/25/18 [Rx Confirmed 03/25/18] gabapentin 300 mg capsule 300 mg PO TID #100 cap 03/27/18 [Rx Confirmed 03/27/18] Post menopausal: Yes PFSH Medical History Vitamin D deficiency (Chronic) Sciatica (Chronic) Lumbar radiculopathy (Chronic) GERD (gastroesophageal reflux disease) (Chronic) Lung cancer (Chronic) Anxiety (Chronic) Surgical History History of back surgery (Acute) History of section (Acute) History of colonoscopy (Acute) History of cystoscopy (Acute) History of esophagogastroduodenoscopy (EGD) (Acute) History of lateral meniscus repair of left knee (Acute) History of lobectomy of lung (Acute) history of bunionectomy (Acute) Family History Aunt Colon cancer Diabetes Mother Thyroid disorder Heart disease Son Hypercholesteremia Grandmother Heart disease Social History Smoking Status: Former smoker alcohol intake: current alcohol intake frequency: holidays/special occasions only substance use type: does not use HPI HPI Chief Complaint: rash and burning on legs and back Details: VALERY DEVINE, is a 67 F who presents to the office today for 4 day history of a maculopapular rash left side extending from her spine around to her abdomen with raised blistered areas.. Past medical history as listed above. The patient states that her rash is extremely painful and is unable to sleep. She has sought treatment on Friday of this week for this rash and was treated at the urgent care center and diagnosed with shingles. She states this started approximately 6 days ago with pain and itching along this area. She states that right now she is having similar pain on her left upper arm and her left upper leg. She denies pain numbness or tingling anywhere else on her body. She states she was prescribed acyclovir 800 mg 4 times a day for 7 days and was unable to continue this medication due to nausea. She was then placed on valacyclovir 1000 mg by mouth 3 times a day for 7 days and has been able to tolerate that so far. She was also prescribed gabapentin 100 mg tablet 3 times a day. She was also placed on prednisone 50 mg by mouth per day x 5 days. She states the medication is not helping with her pain and she is unable to sleep at this time. The patient otherwise denies any fever, chills, nausea, vomiting, shortness of breath, chest pain or pressure, palpitations, orthopnea, lower extremity edema, syncope or presyncopal episodes. ROS Const Constitutional: No body ache, chills, headache(s), weakness or fever(s) Eyes Eyes: No blurry vision, change in vision, eye pain or discharge ENT ENT: No headache(s), abnormal hearing, ear pain, ear pressure, tinnitus, dizziness/vertigo or balance problems Resp Respiratory: No cough, shortness of breath or wheezing Cardio Cardiology: No chest pain at rest, shortness of breath, dyspnea on exertion or palpitations Gastro GI: No abdominal pain or bloating Musc Musculoskeletal: No muscle weakness Skin Skin: Positive for itching, rash and other (burning sensation on skin, possible shingles.) Breast Breast: Positive for other (burning sensation on skin, possible shingles.) Neuro Neurology: No headache(s), weakness or abnormal hearing Aller/Imm Allergy/Immunologic: Positive for itchy eyes; no wheezing Exam Const General: cooperative, comfortable, no acute distress Nutritional Appearance: average body habitus, well nourished Orientation: alert, oriented x3 Limitations: mental status not altered [facility] Head: normal to inspection Ears: hearing grossly normal bilaterally Nose: external nose normal Eyes General: appearance normal, both eyes and all related structures Resp Effort AND Inspection: normal respiratory effort, able to speak in complete sentences, normal respiratory pattern, symmetric chest movement, no audible wheezes, no cough Auscultation: Bilateral: Clear to Auscultation Cardio Palpation: normal PMI Rate: regular rate Heart Sounds: S1 normal, S2 normal, normal S1 and S2, no click, no gallops, no murmurs, no rubs GI Inspection: normal to inspection Auscultation: normal bowel sounds, no hyperactive bowel sounds, no hypoactive bowel sounds Palpation: soft, no hepatosplenomegaly Musc Musculoskeletal: No joint tenderness, decreased ROM or muscle weakness Skin Rashes: rashes noted (Maculopapular vesicular erythematous from spine to abdomen left side) Neuro General: alert, awake, oriented x3, CN's II-XI intact bilaterally Speech: speech normal Gait: normal gait Motor: muscle tone normal throughout Extrem General: normal to inspection, normal gait, no edema, no pedal edema Psych Appearance: grossly normal Mental Status: mental status grossly normal Affect: normal affect Attitude: cooperative Thought Process: normal Assessment AND Plan Problems 1. Herpes zoster without complication B02.9 2. 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 Discussed the importance of adhering to her current medication management of the antiviral therapy and continuing the prednisone burst therapy. Discussed red flag symptoms that require urgent medical attention. Given the neuropathy and pain that she has having, will increase her gabapentin to 300 mg 3 times daily and educated on potential side effects of medication and how to properly take the medication. Discussed not driving while on this dose of the medication. Patient to follow-up in 2 weeks or sooner if needed for reevaluation. 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 03/31/18 1403 <Electronically signed by Keo CRAWFORD> Date Keo CRAWFORD Cosigner Signature: Date (if applicable) CC: URGENT CARE VISIT Observed: 03/25/2018 Status: F Source: CONSTANCE REPORT 10:[address] [address] OFFICE VISIT Date of Service: 03/24/18 MR#: [id number] Acct: [id number] Name: VALERY DEVINE Rep #: [id number] : 1950 Provider: Rohan KHANNA Age/Sex: 67/F Location: [facility] Status: Signed with Addenda ADDENDUM by Mark KHANNA on 03/25/18 at 1029 Addendum entered and electronically signed by JEY Jimenez 03/25/18 10:29: Patient called in speaking with nursing regarding acyclovir stating she believes is causing her nausea as well as vomiting as well as intolerable pain that she has been taking tramadol which is her 's prescription. After reviewing with me, patient was informed by nursing to discontinue acyclovir and start acyclovir as prescribed. Additionally, nursing was informed to tell patient to discontinue tramadol as this may be contributing to her nausea vomiting; both nursing and myself were unable to contact patient to inform her of this as the phone was busy. In addition to valacyclovir, gabapentin and prednisone were prescribed and patient informed on the gabapentin prescription that she should follow-up with her PCP in 5-7 days for considering continuing the gabapentin prescription for pain control. HPI Details: VALERY DEVINE, is a 67 F who presents to the office today for Assessment AND Plan Problems 1. Herpes zoster without complication B02.9 Medications New: acyclovir while awake; give 5 doses in800 mg PO Q4H 7 days 42 tabs 0RF JEY Genao 24 hours 03/25/18 1029 <Electronically signed by Mark KHANNA> Date Mark Kirby cc: * Signed Intake Vital Signs03/24/18 Height 5 ft 4 in Intake Visit Reasons: LEFT SIDE PAIN/RIB Allergies Sulfa (Sulfonamide Antibiotics) Allergy (Intermediate, Verified 03/24/18 15:29) sores in mouth amoxicillin [From Amoxil] Adverse Reaction (Intermediate, Verified 03/24/18 15:29) yeast AND bladder infections Medications ergocalciferol (vitamin D2) 50,000 unit capsule 50,000 unit PO QWEEK #14 cap 10/08/17 [Rx Confirmed 03/24/18] esomeprazole magnesium 40 mg capsule,delayed release 40 mg PO QDAY #90 cap 10/08/17 [Rx Confirmed 03/24/18] ibuprofen 400 mg tablet 400 mg PO BID PRN #180 tab 02/05/18 [Rx Confirmed 03/24/18] acyclovir 800 mg tablet 800 mg PO Q4H 7 Days #42 tab 03/24/18 [Rx Confirmed 03/24/18] PFSH Medical History Vitamin D deficiency (Chronic) Sciatica (Chronic) Lumbar radiculopathy (Chronic) GERD (gastroesophageal reflux disease) (Chronic) Lung cancer (Chronic) Anxiety (Chronic) Surgical History History of back surgery (Acute) History of section (Acute) History of colonoscopy (Acute) History of cystoscopy (Acute) History of esophagogastroduodenoscopy (EGD) (Acute) History of lateral meniscus repair of left knee (Acute) History of lobectomy of lung (Acute) history of bunionectomy (Acute) Family History Aunt Colon cancer Diabetes Mother Thyroid disorder Heart disease Son Hypercholesteremia Grandmother Heart disease Social History Smoking Status: Former smoker alcohol intake: current alcohol intake frequency: holidays/special occasions only substance use type: does not use HPI HPI Details: VALERY DEVINE, is a 67 F who presents to the office today complaint of left-sided rib and skin pain for the past for 2 days. Patient stated that she noticed pain is seem like a muscular type pain starting 2 days ago and then noticed today a small rash with blisters to the left side. She denies any chest pain, shortness of breath or difficulty breathing. She states that she has not had a zoster vaccination. She had no fever, chills, sweats. No nausea, vomiting, diarrhea. No other associated symptoms or alleviating/aggravating factors. ROS Const Constitutional: No chills, fever(s), fatigue or abnormal sleep pattern Resp Respiratory: No shortness of breath or chest congestion Cardio Cardiology: No chest pain at rest, chest pain with exertion or shortness of breath Skin Skin: Positive for rash and itching; no wounds or lesions Neuro Neurology: No behavioral changes or confusion Psych Psychiatric: No behavioral changes, No confusion, No abnormal sleep pattern Endo Endocrine: No fatigue Aller/Imm Allergy/Immunologic: Positive for itchy eyes Exam Const General: cooperative, healthy appearing Resp Effort AND Inspection: normal respiratory effort Auscultation: Bilateral: Clear to Auscultation Cardio Palpation: normal PMI Rate: regular rate Rhythm: regular rhythm Skin Other: Vesicular lesions in a dermatomal pattern on the left side over the ribs at approximately the T11 dermatome. None of the pustules have interrupted at this point. Neuro General: alert, CN's II-XI intact bilaterally Cognition: normal cognition Speech: speech normal Gait: normal gait Sensory Exam: no sensory deficits noted Psych Appearance: grossly normal Mental Status: mental status grossly normal Assessment AND Plan Problems 1. Herpes zoster without complication B02.9 Status Acute Plan Acyclovir as prescribed today. Patient advised to follow- up with her PCP in 5-7 days if no better or sooner if worse. Advised of potential red flags when appropriate report to the ED. Patient verbalized understanding of all the above. Medications New: Coding Level of Care Code Off vis,new,level 3 Diagnoses Herpes zoster without complication B02.9 Herpes zoster complications: without complications 03/24/18 1752 <Electronically signed by Rohan KHANNA> Date Rohan KHANNA Cosigner Signature: Date (if applicable) CC: URINALYSIS, COMPLETE Collected: 01/29/2018 Status: F Source: CONSTANCE 12:00 AM [facility] Order Comment: How was Urine Obtained? TOP FORMER TO SPECIFY TYPE CODE TESTS RESULT OUT OF RANGE REFERENCE UNITS LAB L400.3000 Yellow COLOR Normal Yellow LAB L400.3050 Clear Normal CLARITY Sl. Cloudy LAB L400.3200 Normal mg/dl Normal GLUCOSE, UR Normal LAB L400.3300 Negative mg/dL Normal BILIRUBIN URINE Negative LAB L400.3400 Negative mg/dl Normal KETONE UR Negative LAB L400.3465 1.002-1.030 Normal SP.GR. DIPSTX 1.015 LAB L400.3550 5.0 - 8.0 pH UR Normal 6.0 LAB L400.3600 Negative mg/dl High PROT 15 DIPSTX LAB L400.3700 Normal mg/dl Normal UROBILI Normal LAB L400.3750 Negative Normal NITRITE UR Negative LAB L400.3780 Negative /ul High OCCULT BLOOD-UR 250 LAB L400.3800 Negative /ul High LEUK ESTERASE 500 LAB L400.4050 0-5 /hpf WBC Normal >100 SEEN LAB L400.4100 0-5 /hpf Normal RBC-UA 50-100 SEEN LAB L400.4150 5-10 /hpf SQUAM Normal EPI 0-5 SEEN LAB L400.4300 None Seen /hpf 1+ Normal BACTERIA LAB L400.4350 <or=2+ /hpf 0 Normal MUCUS, URINE SEEN Performed By: #### L400.0001, M100.0650 #### [facility] [address] [place], [address] Observed: 01/29/2018 Status: F Source: [facility] CULTURE, URINE 12:00 AM [facility] Urine Culture ORGANISM 1: Mixed Gram Pos AND Gram Neg Org Almond Count 1000-10,000 MIX CULTURE Mixed contaminants. Submit a new specimen if indicated. Performed By: #### L400.0001, M100.0650 #### [facility] [address] [place], [address] INTERNAL MEDICINE Observed: 01/28/2018 Status: F Source: [facility] OFFICE VISIT 4:24 PM [facility] [address] [place] [address] [place] [address] OFFICE VISIT Date of Service: 01/28/18 MR#: [id number] Acct: [id number] Name: VALERY DEVINE Rep #: [id number] : 1950 Provider: Keo Bassett NP Age/Sex: 67/F Location: [facility] Status: Signed Intake Vital Signs01/28/18 Height 5 ft 4 in Intake Visit Reasons: POSS UTI Chief Complaint: urinary symptoms Is patient in pain?: Yes (urinary) Pain scale (1-10): 10 Allergies Sulfa (Sulfonamide Antibiotics) Allergy (Intermediate, Verified 12/24/17 13:24) sores in mouth amoxicillin [From Amoxil] Adverse Reaction (Intermediate, Verified 12/24/17 13:24) yeast AND bladder infections Medications ergocalciferol (vitamin D2) 50,000 unit capsule 50,000 unit PO QWEEK #14 cap 10/08/17 [Rx Confirmed 12/24/17] esomeprazole magnesium 40 mg capsule,delayed release 40 mg PO QDAY #90 cap 10/08/17 [Rx Confirmed 12/24/17] ibuprofen 400 mg tablet 400 mg PO BID PRN #180 tab 10/08/17 [Rx Confirmed 12/24/17] cephalexin 500 mg capsule 500 mg PO BID 5 Days #10 cap 01/28/18 [Rx Confirmed 01/28/18] Post menopausal: Yes PFSH Medical History Vitamin D deficiency (Chronic) Sciatica (Chronic) Lumbar radiculopathy (Chronic) GERD (gastroesophageal reflux disease) (Chronic) Lung cancer (Chronic) Anxiety (Chronic) Surgical History History of back surgery (Acute) History of section (Acute) History of colonoscopy (Acute) History of cystoscopy (Acute) History of esophagogastroduodenoscopy (EGD) (Acute) History of lateral meniscus repair of left knee (Acute) History of lobectomy of lung (Acute) history of bunionectomy (Acute) Family History Aunt Colon cancer Diabetes Mother Thyroid disorder Heart disease Son Hypercholesteremia Grandmother Heart disease Social History Smoking Status: Former smoker alcohol intake: current alcohol intake frequency: holidays/special occasions only substance use type: does not use HPI HPI Chief Complaint: urinary symptoms Details: VALERY DEVINE, is a 67 F who presents to the office today for a acute visit for uti symptoms with c/o burning and frequency with urination. Her past medical history incudes osteoarthritis, vitamin D deficiency, GERD, anxiety, and sciatica. Patient stated she started to have burning and frequency x 2 days which occurred after she recently went swimming. She denies blood in urine, vaginal discharge, or vaginal itching. She denies suprapubic tenderness or back pain. She states she had a UTI last year and denies taking OTC medications for symptoms. Patient denies any other aggravating or alleviating factors. She has bought AZO otc but has not started it yet. The patient otherwise denies any fever, chills, nausea, vomiting, shortness of breath, chest pain or pressure, palpitations, orthopnea, lower extremity edema, syncope or presyncopal episodes. ROS Const Constitutional: Positive for chills; no weight change, body ache, fatigue, sleep problems, fever(s), change in appetite, snoring, weakness, frequent falls, headache(s) or excessive sweating Eyes Eyes: No change in vision, eye pain, light sensitivity or blurry vision ENT ENT: No headache(s), abnormal hearing, ear pain, tinnitus, nasal congestion, sore throat or neck pain Resp Respiratory: No snoring, cough, shortness of breath or wheezing Cardio Cardiology: No excessive sweating, chest pain at rest, chest pain with exertion, shortness of breath, dyspnea on exertion, palpitations, orthopnea or lightheadedness Gastro GI: No abdominal pain, change in bowel habits, constipation, diarrhea, vomiting, nausea/dyspepsia or cramping Genitourinary-Female: Positive for burning urination and urinary frequency; no painful urination, urinary incontinence, abnormal vaginal bleeding, pelvic pain or other Musc Musculoskeletal: No neck pain, abnormal walking, joint pain, back pain, limited range of motion, numbness, tingling or muscle weakness Skin Skin: No redness, dry skin, itching, lesions, wounds or rash Neuro Neurology: No weakness, frequent falls, headache(s), abnormal hearing, abnormal walking, numbness, tingling, abnormal speech, dizziness or memory loss Psych Psychiatric: No change in appetite, No memory loss, No anxiety, No depression, No Thoughts of harming yourself/Others Endo Endocrine: No fatigue, excessive sweating, cold intolerance, increased thirst/drinking, heat intolerance, flushing or increased hunger Aller/Imm Allergy/Immunologic: No wheezing, itchy eyes, hives or seasonal allergy symptoms Tom/Lymp Hematologic/Lymphatic: No easy bleeding, easy bruising or enlarged lymph nodes Exam Const General: cooperative, comfortable, no acute distress Nutritional Appearance: average body habitus, well nourished Orientation: alert, oriented x3 Limitations: mental status not altered HENWI Head: normal to inspection Ears: hearing grossly normal bilaterally Nose: external nose normal Eyes General: appearance normal, both eyes and all related structures Resp Effort AND Inspection: normal respiratory effort, able to speak in complete sentences, normal respiratory pattern, symmetric chest movement, no audible wheezes, no cough Auscultation: Bilateral: Clear to Auscultation Cardio Palpation: normal PMI Rate: regular rate Heart Sounds: S1 normal, S2 normal, normal S1 and S2, no click, no gallops, no murmurs, no rubs GI Inspection: normal to inspection Auscultation: normal bowel sounds, no hyperactive bowel sounds, no hypoactive bowel sounds Palpation: soft, no hepatosplenomegaly General: bladder normal to inspection, CVA tenderness ( mild) on the right Musc Musculoskeletal: No joint tenderness, decreased ROM or muscle weakness Skin General: no rashes or lesions noted, elasticity normal, turgor normal Lesions: no lesions Rashes: no rashes Neuro General: alert, awake, oriented x3, CN's II-XI intact bilaterally Speech: speech normal Gait: normal gait Motor: muscle tone normal throughout Extrem General: normal to inspection, normal gait, no edema, no pedal edema Psych Appearance: grossly normal Mental Status: mental status grossly normal Affect: normal affect Attitude: cooperative Thought Process: normal Assessment AND Plan Problems 1. Acute cystitis with hematuria N30.01 Plan patient does have symptoms consitent with acute cystitis. She has burning and frequency x 2 days with urination. Office UA results: large amount of blood and leukocytes moderate amount. Mildly positive CVA tenderness to right side. patient will be started on keflex 500 mg bid x 5 days and to take OTC AZO to help with burning sensation. Urine culture sent. Discussed probiotic use d/t patient concerned about developing yeast infection. Discussed red flag symptoms and when to seek urgent medical attention. Patient to f/u as previously scheduled or if symptoms worsen. Orders Orders: Medications New: Plan Detail Follow Up F/U as needed or if symptoms worsen Coding Level of Care Code Off vis,est,level 3 Diagnoses Acute cystitis with hematuria N30.01 01/28/18 7864 <Electronically signed by Keo MELISSAC> Date Keo Renteriaigner Signature: Date (if applicable) CC: INTERNAL MEDICINE Observed: 12/24/2017 Status: F Source: [facility] OFFICE VISIT 4:15 PM [facility] [address] [place] [address] [place] [address] OFFICE VISIT Date of Service: 12/24/17 MR#: [id number] Acct: [id number] Name: VALERY DEVINE Rep #: [id number] : 1950 Provider: Keo Bassett NP Age/Sex: 67/F Location: [facility] Status: Signed Intake Vital Signs12/24/17 Height 5 ft 4 in 12/24/17 Blood Pressure 100/58 12/24/17 Blood Pressure Location Lt brachial Intake Visit Reasons: c/o ear wax Chief Complaint: Left ear pressure Is patient in pain?: No Allergies Sulfa (Sulfonamide Antibiotics) Allergy (Intermediate, Verified 12/24/17 13:24) sores in mouth amoxicillin [From Amoxil] Adverse Reaction (Intermediate, Verified 12/24/17 13:24) yeast AND bladder infections Medications ergocalciferol (vitamin D2) 50,000 unit capsule 50,000 unit PO QWEEK #14 cap 10/08/17 [Rx Confirmed 12/24/17] esomeprazole magnesium 40 mg capsule,delayed release 40 mg PO QDAY #90 cap 10/08/17 [Rx Confirmed 12/24/17] ibuprofen 400 mg tablet 400 mg PO BID PRN #180 tab 10/08/17 [Rx Confirmed 12/24/17] PFSH Medical History Vitamin D deficiency (Chronic) Sciatica (Chronic) Lumbar radiculopathy (Chronic) GERD (gastroesophageal reflux disease) (Chronic) Lung cancer (Chronic) Anxiety (Chronic) Surgical History History of back surgery (Acute) History of section (Acute) History of colonoscopy (Acute) History of cystoscopy (Acute) History of esophagogastroduodenoscopy (EGD) (Acute) History of lateral meniscus repair of left knee (Acute) History of lobectomy of lung (Acute) history of bunionectomy (Acute) Family History Aunt Colon cancer Diabetes Mother Thyroid disorder Heart disease Son Hypercholesteremia Grandmother Heart disease Social History Smoking Status: Former smoker alcohol intake: current alcohol intake frequency: holidays/special occasions only substance use type: does not use HPI HPI Chief Complaint: Left ear pressure Details: VALERY DEVINE, is a 67 F who presents to the office today for left ear pressure and patient is concerned that is a buildup of earwax. Past medical history arthritis, vitamin D deficiency, sciatica, lumbar radiculopathy, GERD, lung cancer, and anxiety and anxiety. The patient was diagnosed with swimmer's ear to her left ear a couple weeks ago by the urgent care and was given ATB drops for her left ear 10 days. She stated that the drops have helped her left ear pain and she has no further pain. She stated that she feels pressure to her left lower ear canal was told that she has a buildup of earwax in her bilateral ears and is wondering if an irrigation would be beneficial. The patient otherwise denies any fever, chills, nausea, vomiting, shortness of breath, chest pain, dizziness, ear drainage, or ear pain. ROS Const Constitutional: No chills, fatigue, fever(s), frequent falls, malaise, weakness, sleep problems or change in appetite Eyes Eyes: No blurry vision, change in vision, double vision, discharge or visual disturbances ENT ENT: Positive for ear pressure; no abnormal hearing, ear pain, tinnitus or dizziness/vertigo Resp Respiratory: No cough, shortness of breath or wheezing Cardio Cardiology: No chest pain at rest, chest pain with exertion, shortness of breath, dyspnea on exertion, generalized swelling, irregular heart rhythm, lightheadedness, orthopnea, fast heart rate or palpitations Gastro GI: No abdominal pain, change in bowel habits, constipation, diarrhea, nausea/dyspepsia or vomiting Genitourinary-Female: No difficulty urinating, burning urination, painful urination, urinary incontinence, urinary frequency, urinary urgency, urinary hesitancy, urinary retention, Frequent nighttime urination/ nocturia, sexual problems, genital lesions, abnormal vaginal bleeding, pelvic pain, vaginal dryness, vaginal odor or Vaginal Itching Musc Musculoskeletal: No joint pain, back pain, joint swelling, limited range of motion, muscle weakness, numbness or tingling Skin Skin: No change in skin color, itching, rash or wounds Breast Breast: No breast lump or breast pain Neuro Neurology: No frequent falls, weakness, abnormal hearing, numbness, tingling, unsteady gait/balance, dizziness, loss of vision, memory loss or visual disturbances Psych Psychiatric: No memory loss, No anxiety, No change in appetite, No depression, No Thoughts of harming yourself/Others Endo Endocrine: No fatigue, heat intolerance, increased thirst/drinking, increased hunger or increased urination Aller/Imm Allergy/Immunologic: No wheezing, itchy eyes or seasonal allergy symptoms Tom/Lymp Hematologic/Lymphatic: No easy bleeding, easy bruising or enlarged lymph nodes Exam Const General: cooperative, comfortable, no acute distress Nutritional Appearance: average body habitus, well nourished Orientation: alert, oriented x3 Limitations: mental status not altered [facility] Head: normal to inspection, normocephalic, atraumatic Ears: hearing grossly normal bilaterally, external ears normal, right TM abnormal (cereum covering half of tympanic membrane), left TM abnormal (slight fluid around membrane, and small amount of cerumen) Nose: external nose normal, nares normal, no nasal polyps, no nasal discharge, nasal mucous membranes and turbinates normal Face and sinus: normal facial exam, sinuses nontender Mouth: oral mucosae normal, tongue normal, oropharynx normal Throat: posterior oropharynx normal, uvula midline Other: TMS normal and visualized after irrigation Resp Effort AND Inspection: normal respiratory effort, able to speak in complete sentences, normal respiratory pattern, symmetric chest movement, no audible wheezes, no cough Auscultation: Bilateral: Clear to Auscultation Cardio Palpation: normal PMI Rate: regular rate Heart Sounds: S1 normal, S2 normal, normal S1 and S2, no click, no gallops, no murmurs, no rubs Musc Musculoskeletal: No muscle weakness Skin General: no rashes or lesions noted, elasticity normal, turgor normal Lesions: no lesions Rashes: no rashes Neuro General: alert, awake, oriented x3, CN's II-XI intact bilaterally Speech: speech normal Gait: normal gait Motor: muscle tone normal throughout Extrem General: normal to inspection, normal gait, no edema, no pedal edema Office Procedures Cerumen Removal BMS Cerumen Removal Procedure Procedure performed by: cindy bassett Method of removal: cerumen loop/spoon, irrigation From which ear canal was the cerumen removed: bilateral Amount of Cerumen: moderate Patient tolerated procedure: well Complications: none Assessment AND Plan Problems 1. Bilateral impacted cerumen H61.23 Plan Recommended [id number] Debrox. See above procedure note for documentation. Discussed red flag symptoms requiring urgent medical attention. Patient to follow-up as needed or symptoms worsen. Orders Orders: Plan Detail Follow Up Patient to follow-up as needed her symptoms worsen Coding Level of Care Code Off vis,est,level 2 Diagnoses Bilateral impacted cerumen H61.23 Laterality: bilateral 12/24/17 1615 <Electronically signed by Keo CRAWFORD> Date Keo CRAWFORD Cosigner Signature: Date (if applicable) CC: INTERNAL MEDICINE Observed: 12/09/2017 Status: F Source: [facility] OFFICE VISIT 9:28 AM [facility] [address] [place] [address] OFFICE VISIT Date of Service: 12/04/17 MR#: [id number] Acct: [id number] Name: VALERY DEVINE Rep #: [id number] : 1950 Provider: Bean Knapp DO Age/Sex: 67/F Location: [facility] Status: Signed Intake Vital Signs12/04/17 Blood Pressure 94/64 07/12/18 Blood Pressure Location Lt brachial Intake Visit Reasons: f/u from Dr. Vazquez Chief Complaint: F/U for blood spots Is patient in pain?: No Allergies Sulfa (Sulfonamide Antibiotics) Allergy (Intermediate, Verified 12/04/17 16:29) sores in mouth amoxicillin [From Amoxil] Adverse Reaction (Intermediate, Verified 12/04/17 16:29) yeast AND bladder infections Medications ergocalciferol (vitamin D2) 50,000 unit capsule 50,000 unit PO QWEEK #14 cap 10/08/17 [Rx Confirmed 12/04/17] esomeprazole magnesium 40 mg capsule,delayed release 40 mg PO QDAY #90 cap 10/08/17 [Rx Confirmed 12/04/17] ibuprofen 400 mg tablet 400 mg PO BID PRN #180 tab 10/08/17 [Rx Confirmed 12/04/17] PFSH Medical History Vitamin D deficiency (Chronic) Sciatica (Chronic) Lumbar radiculopathy (Chronic) GERD (gastroesophageal reflux disease) (Chronic) Lung cancer (Chronic) Anxiety (Chronic) Surgical History History of back surgery (Acute) History of section (Acute) History of colonoscopy (Acute) History of cystoscopy (Acute) History of esophagogastroduodenoscopy (EGD) (Acute) History of lateral meniscus repair of left knee (Acute) History of lobectomy of lung (Acute) history of bunionectomy (Acute) Family History Aunt Colon cancer Diabetes Mother Thyroid disorder Heart disease Son Hypercholesteremia Grandmother Heart disease Social History Smoking Status: Former smoker alcohol intake: current alcohol intake frequency: holidays/special occasions only substance use type: does not use HPI HPI Chief Complaint: F/U for blood spots Details: VALERY DEVINE, is a 67 F who presents to the office today for a recheck of a swimmers ear, she has also had a lot of knee problems, after having knee surgery ROS Const Constitutional: No chills, fatigue, fever(s), frequent falls, malaise, weakness, sleep problems or change in appetite Eyes Eyes: No blurry vision, change in vision, double vision, discharge or visual disturbances ENT ENT: Positive for other (Had Swimmer's ear); no abnormal hearing, ear pain, ear pressure, tinnitus or dizziness/vertigo Resp Respiratory: No cough, shortness of breath or wheezing Cardio Cardiology: No chest pain at rest, chest pain with exertion, shortness of breath, dyspnea on exertion, generalized swelling, irregular heart rhythm, lightheadedness, orthopnea, fast heart rate or palpitations Gastro GI: No abdominal pain, change in bowel habits, constipation, diarrhea, nausea/dyspepsia or vomiting Genitourinary-Female: No difficulty urinating, burning urination, painful urination, urinary incontinence, urinary frequency, urinary urgency, urinary hesitancy, urinary retention, Frequent nighttime urination/ nocturia, sexual problems, genital lesions, abnormal vaginal bleeding, pelvic pain, vaginal dryness, vaginal odor or Vaginal Itching Musc Musculoskeletal: No joint pain, back pain, joint swelling, limited range of motion, muscle weakness, numbness or tingling Skin Skin: No change in skin color, itching, rash or wounds Breast Breast: No breast lump or breast pain Neuro Neurology: No frequent falls, weakness, abnormal hearing, numbness, tingling, unsteady gait/balance, dizziness, loss of vision, memory loss or visual disturbances Psych Psychiatric: No memory loss, No anxiety, No change in appetite, No depression, No Thoughts of harming yourself/Others Endo Endocrine: Positive for other (Had Swimmer's ear); no fatigue, heat intolerance, increased thirst/drinking, increased hunger or increased urination Aller/Imm Allergy/Immunologic: No wheezing, itchy eyes or seasonal allergy symptoms Tom/Lymp Hematologic/Lymphatic: No easy bleeding, easy bruising or enlarged lymph nodes Exam Const General: cooperative, healthy appearing Nutritional Appearance: average body habitus Orientation: oriented x3 HENMT Ears: hearing grossly normal bilaterally, TM's normal bilaterally Resp Effort AND Inspection: normal respiratory effort, cough Auscultation: Bilateral: Clear to Auscultation Cardio Rate: regular rate Rhythm: regular rhythm Musc Musculoskeletal: No muscle weakness Extrem General: no clubbing, cyanosis or edema Assessment AND Plan Problems 1. Acute swimmer's ear of left side H60.332 2. Primary osteoarthritis of both knees M17.0 3. Lumbar radiculopathy M54.16 4. Lung cancer C34.90 5. Anxiety F41.9 Plan This patient was seen on a recheck of a left otitis externa she was pain-free and the year was normal she mentioned that she is having continued knee problems but she is under care of an orthopedic surgeon for this so I just noted it on her chart and attempted no further therapy. We also talked about her history of lung cancer and desiring a follow-up chest x-ray which was ordered. Orders Orders: Coding Level of Care Code Off vis,est,level 3 Diagnoses Acute swimmer's ear of left side H60.332 Otitis externa type: swimmer's ear Chronicity: acute Laterality: left Primary osteoarthritis of both knees M17.0 Osteoarthritis location: knee Osteoarthritis type: primary Laterality: bilateral Lumbar radiculopathy M54.16 Lung cancer C34.90 Anxiety F41.9 12/09/17 0928 <Electronically signed by Bean Knapp DO> Date Bean Knapp DO Cosigner Signature: Date (if applicable) CC: CHEST PA AND LATERAL Observed: 12/05/2017 Status: F Source: [facility] 11:47 AM [facility] Services [address] [place] [address] Chest PA and Lateral MR#: [id number] Acct: [id number] Name: VALERY DEVINE Rep #: [id number] : 1950 F 67 From: Jose Alfredo Zarate MD PCP: Bean Knapp DO Status: REG CLI Study: Chest PA and Lateral Date of Exam: 12/05/17 Exam# [id number] Ordering Dr: Bean Knapp DO STUDY: X-RAY CHEST REASON FOR EXAM: Female, 67 years old. Lung cancer history TECHNIQUE: PA and lateral chest COMPARISON: None. FINDINGS: Generalized hyperlucency consistent with underlying COPD. Lungs otherwise clear. Normal cardiomediastinal silhouette, krishna and pleural margins. Small sliding hiatal hernia. No acute osseous process. 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 Electronically Signed: Jose Alfredo Zarate, at 11:53 EDT Tel , Service support , CC: Bean Knapp DO Infrastructure Administrator: Signed URGENT CARE VISIT Observed: 11/28/2017 Status: F Source: [facility] REPORT 3:14 PM [facility] [address] [place] [address] [address] [place] [address] OFFICE VISIT Date of Service: 11/28/17 MR#: [id number] Acct: [id number] Name: VALERY DEVINE Rep #: [id number] : 1950 Provider: Rohan KHANNA Age/Sex: 67/F Location: [facility] Status: Signed Intake Vital Signs11/28/17 Height 5 ft 4 in Intake Visit Reasons: EARACHE Allergies Sulfa (Sulfonamide Antibiotics) Allergy (Intermediate, Verified 11/28/17 14:44) sores in mouth amoxicillin [From Amoxil] Adverse Reaction (Intermediate, Verified 11/28/17 14:44) yeast AND bladder infections Medications ergocalciferol (vitamin D2) 50,000 unit capsule 50,000 unit PO QWEEK #14 cap 10/08/17 [Rx Confirmed 11/28/17] esomeprazole magnesium 40 mg capsule,delayed release 40 mg PO QDAY #90 cap 10/08/17 [Rx Confirmed 11/28/17] ibuprofen 400 mg tablet 400 mg PO BID PRN #180 tab 10/08/17 [Rx Confirmed 11/28/17] ustlblhc-pavmqhykz-dgnvspxgp 3.5 mg-10,000 unit/mL-1 % ear drops,susp 3 drp OTIC Q4H 10 Days #10 ml 11/28/17 [Rx Confirmed 11/28/17] PFSH Medical History Vitamin D deficiency (Chronic) Sciatica (Chronic) Lumbar radiculopathy (Chronic) GERD (gastroesophageal reflux disease) (Chronic) Lung cancer (Chronic) Anxiety (Chronic) Surgical History History of back surgery (Acute) History of section (Acute) History of colonoscopy (Acute) History of cystoscopy (Acute) History of esophagogastroduodenoscopy (EGD) (Acute) History of lateral meniscus repair of left knee (Acute) History of lobectomy of lung (Acute) history of bunionectomy (Acute) Family History Aunt Colon cancer Diabetes Mother Thyroid disorder Heart disease Son Hypercholesteremia Grandmother Heart disease Social History Smoking Status: Former smoker alcohol intake: current alcohol intake frequency: holidays/special occasions only substance use type: does not use HPI HPI Details: VALERY DEVINE, is a 67 F who presents to the office today for complaint of left ear pain which started this morning. Patient states that she has been swimming daily for the past month. She denies any otorrhea, hearing change or loss. No fever, chills, sweats. No nausea, vomiting, diarrhea. No other associated symptoms or alleviating/aggravating factors. ROS Const Constitutional: No chills, fever(s), fatigue or abnormal sleep pattern ENT ENT: Positive for ear pain and ear pressure; no ear discharge, dizziness/vertigo, nasal congestion, nasal discharge or sore throat Skin Skin: No wounds or lesions Neuro Neurology: No behavioral changes or confusion Psych Psychiatric: No behavioral changes, No confusion, No abnormal sleep pattern Endo Endocrine: No fatigue Exam Const General: cooperative, healthy appearing [facility] Head: normocephalic, atraumatic Ears: hearing grossly normal bilaterally, EAC abnormal erythema on the left, edema on the left and EAC tenderness on the left Nose: external nose normal Face and sinus: face symmetric, normal facial exam Mouth: oral mucosae normal Throat: posterior oropharynx normal Skin General: no rashes or lesions noted Neuro General: alert, CN's II-XI intact bilaterally Psych Appearance: grossly normal Mental Status: mental status grossly normal Assessment AND Plan Problems 1. Acute swimmer's ear of left side H60.332 Status Acute Plan Eardrops as prescribed today. Encouraged to get plenty of rest, drink lots of clear liquids, and use Tylenol or Ibuprofen (unless contraindicated) for fever and comfort. Patient also educated on other symptomatic management techniques. To be seen in 7-10 days if no improvement; sooner if worsening of symptoms. Patient advised of potential red flags and when appropriate report to the ED. Patient verbalized understanding of all the above. This note was generated with [employer] dictation software. It may contain incorrect words, spelling, and punctuation that were not noted in checking the note before signing. Medications New: pwzoinbj-zpgdzyoxr-GH 3.5-10,000-1 mg/mL-unit/mL-% 3 drps otic (ear) Q4H 10 days H60.90 apply to (cotton) wick; replace wick every 24 hours Coding Level of Care Code Off vis,est,level 3 Diagnoses Acute swimmer's ear of left side H60.332 Otitis externa type: swimmer's ear Chronicity: acute Laterality: left 11/28/17 1514 <Electronically signed by Rohan KHANNA> Date Rohan KHANNA Cosigner Signature: Date (if applicable) CC: SYNOVIAL FLUID RBC, Collected: 11/14/2017 Status: F Source: [facility] WBC AND DIFF 12:00 PM [facility] Order Comment: 65 cells counted. TYPE CODE TESTS RESULT OUT OF RANGE REFERENCE UNITS LAB L200.5050 0.000-0.000 10 3 uL High SYN Tot 0.[address] Result Comment: This is the Total Number of Nucleated Cell Types in the Body Fluid. LAB L200.5100 0 10 6/uL High SYNOVIAL RBC 0.007 LAB L200.5200 0.000-0.002 10 3uL High SYNOVIAL WBC 0.4270 LAB L200.5260 % SYBF PMN Normal WBC% 38.2 LAB L200.5270 10 3/ul SYBF PMN Normal WBC# 0.163 LAB L200.5280 % SYBF MN Normal WBC% 61.8 LAB L200.5800 PATH Normal COM/SYFL May follow LAB L200.4600 SYNOVIAL Normal SOURCE LEFT KNEE LAB L200.4800 HIGH Normal VISCOSITY/SYFL Sl. Viscous LAB L200.4900 Pale Yellow SYNOVIAL Normal COLOR Yellow LAB L200.5000 CLEAR SYNOVIAL Normal BEULAH. Cloudy LAB L200.5300 0-25 % Normal NEUTROPHIL 12 LAB L200.5400 % LYMPH Normal 49 LAB L200.5500 % MONO Normal 38 Performed By: #### L200.0400, L200.4175 #### [facility] [address] [place], [address] CRYSTALS, BODY FLUID Collected: 11/14/2017 Status: C Source: DOZIER 12:00 PM [facility] Order Comment: 65 cells counted. TYPE CODE TESTS RESULT OUT OF RANGE REFERENCE UNITS LAB L200.4200 Normal SEE PATH REV CRYSTALS/BF LAB L200.4225 Normal SYNOVIAL SOURCE/BF LAB L200.6020 Normal PATH Reviewed REV Result Comment: Negative for malignant cells. A few nondescript crystals are noted. Papito Wiggins M.D. 11/17/17 AMENDED REPORT 11/17/17 1024 PATH REV previously reported as: Will follow Performed By: #### L200.0400, L200.4175 #### [facility] [address] [place], [address] Observed: 11/14/2017 Status: F Source: CONSTANCE CULTURE, BODY FLUID 12:00 PM [facility] List Antibiotics Last 48 Hours? . List Antibiotics to be Started? . Comments: SYNOVIAL FLUID BAKERS CYST OF LEFT KNEE. Gram Stain Centrifuged Specimen? Culture performed on centrifuged specimen Gram Stain No White Blood Cells No organisms seen Body Fluid Cult NO GROWTH IN 14 DAYS Cult, Anaerobic No anaerobic bacteria isolated. Performed By: #### M100.1300 #### [facility] [address] [place], [address] CBC W/DIFF, AUTOMATED Collected: 11/04/2017 Status: F Source: [place] 2:23 PM [facility] TYPE CODE TESTS RESULT OUT OF RANGE REFERENCE UNITS LAB L100.1000 4.4-11.0 K/mm3 Normal WBC 5.6 LAB L100.1200 4.2-5.4 M/mm3 Normal RBC 4.48 LAB L100.1300 12.0-15.0 g/dl Normal HGB 13.7 LAB L100.1400 37-47 % Normal HCT 42.0 LAB L100.1500 81-99 fL Normal MCV 93.8 LAB L100.1600 27.0-32.0 pg Normal MCH 30.6 LAB L100.1700 32-36 g/gl Normal MCHC 32.6 LAB L100.1810 11.6-14.6 % Normal RDW CV 13.4 LAB L100.1820 35.1-43.9 fl High RDW SD 44.7 LAB L100.1900 150-450 K/mm3 Normal PLT 242 LAB L100.2000 6.2-12.0 fl Normal MPV 11.0 LAB L100.2100 47-70 % Normal NEUT% 68.2 LAB L100.2200 19-41 % Normal LY% 22.6 LAB L100.2300 0-10 % Normal MONO% 7.3 LAB L100.2400 0-5 % Normal EO% 1.2 LAB L100.2500 0-1 % Normal BASO% 0.5 LAB L100.2550 0.0-0.9 % Normal IM GRAN % 0.200 Result Comment: IG% - Immature Granulocytes (promyelocytes, myelocytes and metamyelocytes) > 1% indicates that a LEFT SHIFT is Present. LAB L100.2620 2.0-7.7 X10 3/uL Normal Absolute Neut 3.8 LAB L100.2720 0.83-4.51 X10 3/ul Normal Absolute Lymph 1.27 Performed By: #### L100.0100, L101.9900 #### [facility] [address] [place], [address] ERYTHROCYTE SED RATE Collected: 11/04/2017 Status: F Source: DOZIER 2:23 PM [facility] TYPE CODE TESTS RESULT OUT OF RANGE REFERENCE UNITS LAB L102.0000 0-30 mm/hr Normal SED RATE 12 Performed By: #### L100.0100, L101.9900 #### [facility] [address] [place], [place], [address] COMPREHENSIVE METABOLIC Collected: 11/04/2017 Status: F Source: CONSTANCE [facility] 2:23 PM [facility] TYPE CODE TESTS RESULT OUT OF RANGE REFERENCE UNITS LAB L501.0100 74-106 mg/dL Normal GLU 92 Result Comment: Please note revised GLUCOSE reference range effective 2017. LAB L501.1000 7-18 mg/dL Normal BUN 11 LAB L501.1100 0.55-1.02 mg/dL Normal CREAT,SERUM 0.68 Result Comment: The validity of the calculated GFR AND GFRAA in patients over 70 years has not been determined. Clinical correlation is essential. LAB L501.1110 >60 mL/min Normal EST GFR 92 Result Comment: Non- GFR Calc LAB L501.1115 >60 mL/min Normal EST GFR - AA 111 Result Comment: GFR Calc LAB L501.1300 10-20 RATIO Normal BUN/CRE 16.2 LAB L501.1500 6.4-8.2 g/dL T Normal PROT 7.3 LAB L501.1800 3.2-5.0 g/dL Normal ALB 3.7 LAB L501.1950 2.2-4.2 g/dL Normal GLOB 3.6 LAB L501.2000 0.9-2.4 RATIO Normal A/G 1.0 LAB L501.2200 8.5-10.1 mg/dL CA Normal 8.8 LAB L501.4100 15-37 U/L Normal AST 18 LAB L501.4305 45-117 U/L Normal ALK P 115 LAB L501.4405 13-56 U/L Normal ALT 28 LAB L501.4600 0.20-1.00 mg/dL T Normal BILI 0.40 LAB L501.5300 136-145 mmol/L NA Normal 142 LAB L501.5600 3.5-5.1 mmol/L K Normal 4.2 LAB L501.5900 98-107 mmol/L CL Normal 107 LAB L501.6100 21.0-32.0 mmol/L Normal CO2 27.0 LAB L501.6200 5-15 Normal GAP 8 Performed By: #### L500.4050, L501.6710, L505.7010 #### [facility] [place], [place], [id number] CRP Collected: 11/04/2017 Status: F Source: DOZIER 2:23 PM [facility] TYPE CODE TESTS RESULT OUT OF RANGE REFERENCE UNITS LAB L501.6710 0.0-3.0 mg/L High 7.52 C-REACTIVE PROT Result Comment: C-Reactive Protein (CRP) provides useful information for the diagnosis, therapy and monitoring of inflammatory processes and associated diseases. For the evaluation of Relative Risk for Cardiovascular Disease, a High Sensitivity CRP (HSCRP) should be ordered. Performed By: #### L500.4050, L501.6710, L505.7010 #### [facility] [address] [place] [address], [id number] RHEUMATOID FACTOR Collected: 11/04/2017 Status: F Source: DOZIER 2:23 PM [facility] TYPE CODE TESTS RESULT OUT OF RANGE REFERENCE UNITS LAB L505.7010 <15 IU/mL Normal RHEUMATOID FAC < 10.0 Performed By: #### L500.4050, L501.6710, L505.7010 #### [facility] [address] [place] [address], [id number] ANTINUCLEAR ANTIBODIES Collected: 11/04/2017 Status: F Source: CONSTANCE DIRECT 2:23 PM [facility] TYPE CODE TESTS RESULT OUT OF RANGE REFERENCE UNITS LAB L3100.5475 Negative Normal Negative GURU-DIRECT Result Comment: Performed at: - [facility] [id number] [employer]: Dayne Rudolph PhD, Phone: [phone] Performed By: #### L3100.5475 #### [facility] (refer to report for specific site) refer to report for address and phone number HEPATITIS B SURFACE Collected: 11/04/2017 Status: F Source: [place] AG 2:23 PM [facility] TYPE CODE TESTS RESULT OUT OF RANGE REFERENCE UNITS LAB L3100.0400 Negative Normal HB Negative SURF AG Result Comment: Performed at: - [facility] [address] [id number] [employer]: Dayne Rudolph PhD, Phone: [phone] Performed at: 2 - [facility] [id number] [employer]: Joshua Stone PhD, Phone: [phone] Performed at: - [facility] [id number] [employer]: Guillaume Lehman MD, Phone: [phone] Performed By: #### L3100.0390, L3100.0528, L3100.0625, L3410.1400, L4600.0100 #### [facility] (refer to report for specific site) refer to report for address and phone number HEP B SURFACE Collected: 11/04/2017 Status: F Source: [place] ANTIBODIES 2:23 PM [facility] TYPE CODE TESTS RESULT OUT OF RANGE REFERENCE UNITS LAB L3100.0528 . Normal Hep B Non Reactive Kenneth AB Result Comment: Non Reactive: Inconsistent with immunity, less than 10 mIU/mL Reactive: Consistent with immunity, greater than 9.9 mIU/mL Performed By: #### L3100.0390, L3100.0528, L3100.0625, L3410.1400, L4600.0100 #### [facility] (refer to report for specific site) refer to report for address and phone number HEPATITIS C ANTIBODIES Collected: 11/04/2017 Status: F Source: [place] 2:23 PM [facility] TYPE CODE TESTS RESULT OUT OF RANGE REFERENCE UNITS LAB L3100.0650 0.0-0.9 s/co ratio Normal HEP C AB <0.1 Result Comment: Negative: < 0.8 Indeterminate: 0.8 - 0.9 Positive: > 0.9 The CDC recommends that a positive HCV antibody result be followed up with a HCV Nucleic Acid Amplification test (772276). Performed By: #### L3100.0390, L3100.0528, L3100.0625, L3410.1400, L4600.0100 #### [facility] (refer to report for specific site) refer to report for address and phone number HLA B27 Collected: 11/04/2017 Status: F Source: [place]ANCE 2:23 PM [facility] TYPE CODE TESTS RESULT OUT OF RANGE REFERENCE UNITS LAB L3410.1500 . Normal HLA Negative B27 Result Comment: HLA-B*27 Negative B27 allele interpretation for all loci based on IMGT/HLA database version 3.27 This test was developed and its performance characteristics determined by [facility]. It has not been cleared or approved by the Food and Drug Administration. [facility] CLIA ID Number [id number] This test was performed using PCR (Polymerase Chain Reaction)/SSOP (Sequence Specific Oligonucleotide Probes) technique. SBT (Sequence Based Typing) and/or SSP (Sequence Specific Primers) may be used as supplemental methods when necessary. Please contact [facility] Customer Service at if you have any questions. Director of [facility] Laboratory Dr Joshua Stone, PhD Performed By: #### L3100.0390, L3100.0528, L3100.0625, L3410.1400, L4600.0100 #### [facility] (refer to report for specific site) refer to report for address and phone number CCP IGG ANTIBODIES Collected: 11/04/2017 Status: F Source: [place]ANCE 2:23 PM [facility] TYPE CODE TESTS RESULT OUT OF RANGE REFERENCE UNITS LAB L4600.0100 0-19 units Normal ANTI-CCP 6 [id number] Result Comment: Negative <20 Weak positive 20 - 39 Moderate positive 40 - 59 Strong positive >59 Performed By: #### L3100.0390, L3100.0528, L3100.0625, L3410.1400, L4600.0100 #### [facility] (refer to report for specific site) refer to report for address and phone number INTERNAL MEDICINE Observed: 10/06/2017 Status: F Source: [place]STANCE OFFICE VISIT 8:53 AM [facility] [address] [place], [place] [address] OFFICE VISIT Date of Service: 10/03/17 MR#: [id number] Acct: [id number] Name: VALERY DEVINE Zaida Rep #: [id number] : 1950 Provider: Jay Vazquez MD Age/Sex: 67/F Location: [facility] Status: Signed Intake Vital Signs10/03/17 Height 5 ft 4 in 10/03/17 Weight: 161 lb 10/03/17 Body Mass Index (BMI) 27.6 10/03/17 Blood Pressure 129/80 Intake Visit Reasons: acute visit, rash, Dr. Knapp Chief Complaint: Rash Is patient in pain?: No Allergies Sulfa (Sulfonamide Antibiotics) Allergy (Intermediate, Verified 10/03/17 13:35) sores in mouth amoxicillin [From Amoxil] Adverse Reaction (Intermediate, Verified 10/03/17 08:28) yeast AND bladder infections Medications acetaminophen 500 mg tablet 500 mg PO BID PRN #180 tab 10/03/17 [Rx Confirmed 10/03/17] ergocalciferol (vitamin D2) 50,000 unit capsule 50,000 unit PO QWEEK 10/03/17 [History Confirmed 10/03/17] esomeprazole magnesium 40 mg capsule,delayed release 40 mg PO QDAY #90 cap 10/03/17 [Rx Confirmed 10/03/17] ibuprofen 400 mg tablet 400 mg PO BID PRN #180 tab 10/03/17 [Rx Confirmed 10/03/17] ranitidine 150 mg tablet 150 mg PO QHS 10/03/17 [History Confirmed 10/03/17] PFSH Medical History Vitamin D deficiency (Chronic) Sciatica (Chronic) Lumbar radiculopathy (Chronic) GERD (gastroesophageal reflux disease) (Chronic) Lung cancer (Chronic) Anxiety (Chronic) Surgical History History of back surgery (Acute) History of section (Acute) History of colonoscopy (Acute) History of cystoscopy (Acute) History of esophagogastroduodenoscopy (EGD) (Acute) History of lateral meniscus repair of left knee (Acute) History of lobectomy of lung (Acute) history of bunionectomy (Acute) Family History Aunt Colon cancer Diabetes Mother Thyroid disorder Heart disease Son Hypercholesteremia Grandmother Heart disease Social History Smoking Status: Former smoker alcohol intake: current alcohol intake frequency: holidays/special occasions only substance use type: does not use HPI HPI Chief Complaint: Rash Details: VALERY DEVINE, is a 67yo F who presents to the office today for easy bruising. Symptoms have been ongoing for several months and appears to have worsened lately. She is currently on ibuprofen 800 mg daily for severe left knee osteoarthritis. She denies bleeding from any other orifice. ROS Const Constitutional: No chills, fatigue, fever(s), frequent falls, malaise, weakness, sleep problems or change in appetite Eyes Eyes: No blurry vision, change in vision, double vision, discharge or visual disturbances ENT ENT: No abnormal hearing, ear pain, ear pressure, tinnitus or dizziness/vertigo Resp Respiratory: No cough, shortness of breath or wheezing Cardio Cardiology: No chest pain at rest, chest pain with exertion, shortness of breath, dyspnea on exertion, generalized swelling, irregular heart rhythm, lightheadedness, orthopnea, fast heart rate or palpitations Gastro GI: No abdominal pain, change in bowel habits, constipation, diarrhea, nausea/dyspepsia or vomiting Genitourinary-Female: No difficulty urinating, burning urination, painful urination, urinary incontinence, urinary frequency, urinary urgency, urinary hesitancy, urinary retention, Frequent nighttime urination/ nocturia, sexual problems, genital lesions, abnormal vaginal bleeding, pelvic pain, vaginal dryness, vaginal odor or Vaginal Itching Musc Musculoskeletal: No joint pain, back pain, joint swelling, limited range of motion, muscle weakness, numbness or tingling Skin Skin: No change in skin color, itching or wounds Breast Breast: No breast lump or breast pain Neuro Neurology: Positive for tremor(s); no frequent falls, weakness, abnormal hearing, numbness, tingling, unsteady gait/balance, dizziness, loss of vision, memory loss or visual disturbances Psych Psychiatric: No memory loss, No anxiety, No change in appetite, No depression, No Thoughts of harming yourself/Others Endo Endocrine: No fatigue, heat intolerance, increased thirst/drinking, increased hunger or increased urination Aller/Imm Allergy/Immunologic: No wheezing, itchy eyes or seasonal allergy symptoms Tom/Lymp Hematologic/Lymphatic: Positive for easy bruising; no easy bleeding or enlarged lymph nodes Exam Const General: cooperative, no acute distress, well developed Orientation: alert, awake, oriented x3 HENMT Head: atraumatic, normocephalic Ears: hearing grossly normal bilaterally Resp Effort AND Inspection: normal respiratory effort, able to speak in complete sentences Auscultation: Bilateral: Clear to Auscultation Cardio Rate: regular rate Rhythm: regular rhythm Heart Sounds: S1 normal, S2 normal GI Palpation: soft, no hepatosplenomegaly Musc Musculoskeletal: No muscle weakness Skin General: ecchymosis, purpura Neuro General: alert, awake, oriented x3, moves all extremities, CN's II-XI intact bilaterally Extrem General: no clubbing, cyanosis or edema Psych Appearance: grossly normal Mood: congruent mood Affect: normal affect Assessment AND Plan 1. Ecchymosis R58 Plan Chronic however, now bothersome. She denies bleeding from any other orifice. No history of bleeding disorder. Currently on 800 mg of ibuprofen which she takes daily. Also noted to have dry, thin skin. CBC and CMP ordered. Reduce ibuprofen to 400 mg daily as needed. Discussed hydration and adequate skin moisturizing. Follow-up with Dr. Knapp. Orders Orders: 2. Vitamin D deficiency E55.9 Plan Currently on 50,000 units of vitamin D weekly and has been for several months. Last vitamin D check was within normal. Vitamin D levels ordered. Follow-up with results. Orders Orders: 3. GERD (gastroesophageal reflux disease) K21.9 Plan Stable. Currently on Nexium 40 mg daily. Continue current medications and lifestyle modifications. 4. Osteoarthritis M19.90 Plan Also left knee. Advised to reduce ibuprofen from 800 mg daily to 400 mg daily as needed. Extra strength Tylenol, 1 thousand milligrams twice daily as needed. Continue follow-up with Ortho. Follow-up with Dr. Knapp at next visit. This note was generated with [employer] dictation software. It may contain incorrect words, spelling, and punctuation that were not noted in checking the note before signing. Plan Detail Other Medications New: Discontinued: Follow Up 6 Weeks Coding Level of Care Code Off vis,est,level 4 Diagnoses Ecchymosis R58 Vitamin D deficiency E55.9 GERD (gastroesophageal reflux disease) K21.9 Osteoarthritis M19.90 10/06/17 0853 <Electronically signed by Jay Vazquez MD> Date Jay Vazquez MD Cosigner Signature: Date (if applicable) CC: CBC W/DIFF, AUTOMATED Collected: 10/03/2017 Status: F Source: [place]ANCE 3:07 PM [facility] TYPE CODE TESTS RESULT OUT OF RANGE REFERENCE UNITS LAB L100.1000 4.4-11.0 K/mm3 Normal WBC 5.8 LAB L100.1200 4.2-5.4 M/mm3 Normal RBC 4.29 LAB L100.1300 12.0-15.0 g/dl Normal HGB 13.0 LAB L100.1400 37-47 % Normal HCT 40.8 LAB L100.1500 81-99 fL Normal MCV 95.1 LAB L100.1600 27.0-32.0 pg Normal MCH 30.3 LAB L100.1700 32-36 g/gl Low MCHC 31.9 LAB L100.1810 11.6-14.6 % Normal RDW CV 14.0 LAB L100.1820 35.1-43.9 fl High RDW SD 48.5 LAB L100.1900 150-450 K/mm3 Normal PLT 270 LAB L100.2000 6.2-12.0 fl Normal MPV 10.3 LAB L100.2100 47-70 % Normal NEUT% 63.3 LAB L100.2200 19-41 % Normal LY% 28.8 LAB L100.2300 0-10 % Normal MONO% 6.2 LAB L100.2400 0-5 % Normal EO% 1.0 LAB L100.2500 0-1 % Normal BASO% 0.5 LAB L100.2550 0.0-0.9 % Normal IM GRAN % 0.200 Result Comment: IG% - Immature Granulocytes (promyelocytes, myelocytes and metamyelocytes) > 1% indicates that a LEFT SHIFT is Present. LAB L100.2620 2.0-7.7 X10 3/uL Normal Absolute Neut 3.7 LAB L100.2720 0.83-4.51 X10 3/ul Normal Absolute Lymph 1.67 Performed By: #### L100.0100, L500.4050 #### [facility] [place], [address] COMPREHENSIVE METABOLIC Collected: 10/03/2017 Status: F Source: CONSTANCE [facility] 3:07 PM [facility] TYPE CODE TESTS RESULT OUT OF RANGE REFERENCE UNITS LAB L501.0100 74-106 mg/dL Normal GLU 103 Result Comment: Fasting Glucose result from 100 to 125 mg/dL suggests IMPAIRED HOMEOSTASIS per A.D.A. criteria. Please note revised GLUCOSE reference range effective 2017. LAB L501.1000 7-18 mg/dL High BUN 19 LAB L501.1100 0.55-1.02 mg/dL Normal CREAT,SERUM 0.64 Result Comment: The validity of the calculated GFR AND GFRAA in patients over 70 years has not been determined. Clinical correlation is essential. LAB L501.1110 >60 mL/min Normal EST GFR 99 Result Comment: Non- GFR Calc LAB L501.1115 >60 mL/min Normal EST GFR - AA 120 Result Comment: GFR Calc LAB L501.1300 10-20 RATIO High BUN/CRE 29.8 LAB L501.1500 6.4-8.2 g/dL T Normal PROT 6.7 LAB L501.1800 3.2-5.0 g/dL Normal ALB 3.3 LAB L501.1950 2.2-4.2 g/dL Normal GLOB 3.4 LAB L501.2000 0.9-2.4 RATIO Normal A/G 1.0 LAB L501.2200 8.5-10.1 mg/dL Low CA 8.4 LAB L501.4100 15-37 U/L Normal AST 20 LAB L501.4305 45-117 U/L Normal ALK P 101 LAB L501.4405 13-56 U/L Normal ALT 23 LAB L501.4600 0.20-1.00 mg/dL T Normal BILI 0.20 LAB L501.5300 136-145 mmol/L NA Normal 142 LAB L501.5600 3.5-5.1 mmol/L K Normal 4.1 LAB L501.5900 98-107 mmol/L High CL 110 LAB L501.6100 21.0-32.0 mmol/L Normal CO2 26.0 LAB L501.6200 5-15 Normal GAP 6 Performed By: #### L100.0100, L500.4050 #### [facility] [address] [place], [address] VITAMIN D,25 HYDROXY Collected: 10/03/2017 Status: F Source: [place] 3:07 PM [facility] TYPE CODE TESTS RESULT OUT OF REFERENCE UNITS RANGE LAB L506.1000 29.95-100.01 ng/mL Low Vitamin D 28.1 25-OH Result Comment: Vitamin D 25(OH) Status Range Deficiency <20 ng/mL (50nmol/L) Insuffciency 20 - 30 ng/mL (50 - 75 nmol/L) Sufficiency 30 - 100 ng/mL (75 - 250 nmol/L) Toxicity >100 ng/mL (>250 nmol/L) Performed By: #### L506.1000 #### [facility] [address] [place], [address] PROGRESS Observed: 10/01/2017 Status: COMPLETED Source: RADNOR 11:26 AM [facility] REPOSIT[facility] HNO ID: [id number] Author: Linda Alanis Service: (none) Author Type: (none) Type: Progress Notes Filed: 10/01/2017 11:26 AM Note Text: pap logged, letter sent. Linda Prater PROGRESS Observed: 09/30/2017 Status: COMPLETED Source: RADNOR 5:22 PM [facility] REPOSIT[facility] HNO ID: [id number] Author: Tricia Nieves Service: (none) Author Type: Physician Type: Progress Notes Filed: 09/30/2017 5:22 PM Note Text: Please send letter about normal pap and follow up one year. Tricia Nieves MD CYTOLOGY Observed: 09/24/2017 Status: F Source: RADNOR 12:35 PM [facility] REPOSITORY Specimen originated from [facility] Specimen #: [id number] Submitting Physician: TRICIA NIEVES M.D. ([id number]) SPECIMEN SUBMITTED A: CERVICAL, SCREENING, FLUID FINAL DIAGNOSIS A. CERVICAL, SCREENING, FLUID Satisfactory for interpretation. Negative for intraepithelial lesion or malignancy. Atrophic specimen. This specimen has been analyzed by the ThinPrep Imaging System, an automated imaging and review system, which assists the laboratory in evaluating cells on ThinPrep Pap tests. Following automated imaging, selected otero from every slide are reviewed by a licensed chemical spray technician. JONA De La O(ASCP) (Electronic Signature) CLINICAL DATA ROUTINE EXAM, HPV Testing: Yes, Reflex HPV for ASCUS Date of Last Menstrual Period: Postmenopausal STAINS A: CERVICAL, SCREENING, FLUID THIN PREP MUD MILL TENDER Rosi Olsen M.D., Price Lister Date of Report: 09/30/2017 Date of Procedure: 09/24/2017 Date of Receipt: 09/25/2017 Submitted by: TRICIA NIEVES M.D. ([id number]) Location: [facility] Diagnostic interpretation performed at [facility], [address] [place] [address]. The Pap Smear is a screening test for cervical cancer. False negative results occur with all screening tests, emphasizing the need for rescreening at recommended intervals, and clinical correlation. PROGRESS Observed: 09/24/2017 Status: COMPLETED Source: RADNOR 10:26 AM [facility] REPOSITORY HNO ID: [id number] Author: Tricia Nieves Service: (none) Author Type: Physician Type: Progress Notes Filed: 09/24/2017 12:47 PM Note Text: Valery Devine is a 67 year old female who presents with the complaint of shooting pain in vaginal and rectum, intermittently, for 3-4 months . Pain is only a few seconds and not related to activity or urination. Not taking anything for it. Currently having any pain? no No vaginal bleeding other than after intercourse attempt. Same partner 47 years. No intercourse x 10 years. Hasn't attempted recently. With urination feels she gets empty. Some frequency in the evenings. sometimes urge incont. No signif DELORES. No constipation or melena or straining. Vaginal dryness for many years. One UTI this year. Postmenopausal? yes since in her mid-50s, never on estrogen Heavy bleeding? no Intermenstrual spotting? No Post-coital bleeding? n/a History of fibroids? yes Dysmenorrhea? No History of sexual abuse? No History of anxiety disorder? Yes History of STD? No Concern for exposure to STDs? No Symptoms suggestive of Irritable Bowel Syndrome? No Dysuria, urinary frequency or urgency? No PAST MEDICAL HISTORY Diagnosis Date - DDD (degenerative disc disease) - Kidney stone - Lung cancer (HCC) PAST SURGICAL HISTORY Procedure Laterality Date - BACK SURGERY HX 2014 low back - BUNIONECTOMY, LAPIDUS-TYPE right x2 - DELIVERY ONLY 1970,1973,1980 , low transverse - DANDC (MISSED AB 1ST TRIMESTER) 1979 - KNEE SURGERY HX Left 07/2017 torn miniscus - LOBECTOMY, SEGMENT 2009 left upper lobe FAMILY HISTORY Problem Relation Age of Onset - Emphysema Father - Mental illness [OTHER] Mother Social History Marital status: Spouse name: Years of education: Number of children: Occupational History Occupation Employer Comment [employer] retired 2011 Social History Main Topics Smoking status: Never Smoker Smokeless tobacco: Never Used Alcohol use: No Drug use: No BP 98/52 Ht 5' 4.5 (1.638 m) Wt 156 lb (70.8 kg) BMI 26.36 kg/m? GENERAL: pleasant, female in no apparent distress ABDOMEN: soft, non-tender and no masses PELVIC: Normal mons pubis, normal hair distribution pattern. Atrophic labia majora and my Jenifer. Normal-appearing perineum without lesions. Introitus with slight erythema and thin atrophic epithelium. Somewhat tight band around the introitus but able to place a small speculum. Atrophic, flattened, pale vaginal epithelium with small amount of physiological discharge. Smooth, normal-appearing cervix without polyps. Cervix is nonfriable. Vaginal depth is normal. Significant discomfort to even gentle touch around the introitus. BIMANUAL: uterus normal size, shape and consistency, no adnexal masses and non-tender RECTOVAGINAL: deferred. ASSESSMENT: Atrophic vaginitis and vaginal pain. PLAN: I reviewed the patient's pelvic ultrasound with her. It appears normal. Her vaginal pain seems to be nonspecific and triggered by various things. She may be having some spasms. She has significant vaginal atrophy. We discussed physiological changes of the vagina after menopause. We discussed risk benefits and alternatives to various options for this. We discussed hormonal as well as nonhormonal, Laser and selective estrogen receptor modulator's. I discussed with her that if she wanted to be able to have intercourse this would likely require improvement of vaginal atrophy as well as dilator use an byah-urx-[id number] lubricants. I discussed with her this is a quality of life issue not a life-threatening issue and she has to decide what type of treatments she is interested in. Prescription for vaginal estrogen cream and instructions for use given. She will follow up in my office in approximately 2 months and we will assess whether she might be ready to start vaginal dilator use at that time. I don't feel there is any further evaluation needed for the vaginal pain/spasms that she's having. I reassured her and we will see if the vaginal estrogen improves this. Pap at previous provider insufficient cells, repeated today w/ HPV Majority of this 34 minute appt. spent counseling the patient about the above issues and recommendations. Tricia Nieves CNOV Observed: 09/24/2017 Status: COMPLETED Source: [place] 10:20 AM [facility] REPOSITORY Office Visit (WOOB) VALERY DEVINE ([id number]) 1950 F Date Time Provider Department 09/24/17 10:20 AM TRICIA NIEVES During your visit today, we recorded the following information about you: Blood pressure Weight Height 98/52 70.8 kg 1.638 m Tricia Nieves 09/24/2017 12:47 PM Signed Valery Sybil is a 67 year old female who presents with the complaint of shooting pain in vaginal and rectum, intermittently, for 3-4 months . Pain is only a few seconds and not related to activity or urination. Not taking anything for it. Currently having any pain? no No vaginal bleeding other than after intercourse attempt. Same partner 47 years. No intercourse x 10 years. Hasn't attempted recently. With urination feels she gets empty. Some frequency in the evenings. sometimes urge incont. No signif DELORES. No constipation or melena or straining. Vaginal dryness for many years. One UTI this year. Postmenopausal? yes since in her mid-50s, never on estrogen Heavy bleeding? no Intermenstrual spotting? No Post-coital bleeding? n/a History of fibroids? yes Dysmenorrhea? No History of sexual abuse? No History of anxiety disorder? Yes History of STD? No Concern for exposure to STDs? No Symptoms suggestive of Irritable Bowel Syndrome? No Dysuria, urinary frequency or urgency? No PAST MEDICAL HISTORY Diagnosis Date - DDD (degenerative disc disease) - Kidney stone - Lung cancer (HCC) PAST SURGICAL HISTORY Procedure Laterality Date - BACK SURGERY HX 2014 low back - BUNIONECTOMY, [place]-TYPE right x2 - DELIVERY ONLY 1970,1973,1980 , low transverse - DANDC (MISSED AB 1ST TRIMESTER) 1979 - KNEE SURGERY HX Left 07/2017 torn miniscus - LOBECTOMY, SEGMENT 2009 left upper lobe FAMILY HISTORY Problem Relation Age of Onset - Emphysema Father - Mental illness [OTHER] Mother Social History Marital status: Spouse name: Years of education: Number of children: Occupational History Occupation Employer Comment [employer] retired 2011 Social History Main Topics Smoking status: Never Smoker Smokeless tobacco: Never Used Alcohol use: No Drug use: No BP 98/52 Ht 5' 4.5 (1.638 m) Wt 156 lb (70.8 kg) BMI 26.36 kg/m? GENERAL: pleasant, female in no apparent distress ABDOMEN: soft, non-tender and no masses PELVIC: Normal mons pubis, normal hair distribution pattern. Atrophic labia majora and my Jenifer. Normal-appearing perineum without lesions. Introitus with slight erythema and thin atrophic epithelium. Somewhat tight band around the introitus but able to place a small speculum. Atrophic, flattened, pale vaginal epithelium with small amount of physiological discharge. Smooth, normal-appearing cervix without polyps. Cervix is nonfriable. Vaginal depth is normal. Significant discomfort to even gentle touch around the introitus. BIMANUAL: uterus normal size, shape and consistency, no adnexal masses and non-tender RECTOVAGINAL: deferred. ASSESSMENT: Atrophic vaginitis and vaginal pain. PLAN: I reviewed the patient's pelvic ultrasound with her. It appears normal. Her vaginal pain seems to be nonspecific and triggered by various things. She may be having some spasms. She has significant vaginal atrophy. We discussed physiological changes of the vagina after menopause. We discussed risk benefits and alternatives to various options for this. We discussed hormonal as well as nonhormonal, Laser and selective estrogen receptor modulator's. I discussed with her that if she wanted to be able to have intercourse this would likely require improvement of vaginal atrophy as well as dilator use an ospx-jfd-nlelsso lubricants. I discussed with her this is a quality of life issue not a life-threatening issue and she has to decide what type of treatments she is interested in. Prescription for vaginal estrogen cream and instructions for use given. She will follow up in my office in approximately 2 months and we will assess whether she might be ready to start vaginal dilator use at that time. I don't feel there is any further evaluation needed for the vaginal pain/spasms that she's having. I reassured her and we will see if the vaginal estrogen improves this. Pap at previous provider insufficient cells, repeated today w/ HPV Majority of this 34 minute appt. spent counseling the patient about the above issues and recommendations. Tricia Nieves Rebecca L 09/30/2017 5:22 PM Signed Please send letter about normal pap and follow up one year. MD Jeremiah Becker Psr, Linda Collado 10/01/2017 11:26 AM Signed pap logged, letter sent. Linda Daniels Psr Referring Provider: SIA MENDOZA [[id number]] Allergies As of Date: 09/24/2017 Noted Allergy Reaction SULFA (SULFONAMIDE ANTIBIOTICS) 05/03/2011 14 - Other: See Comments Comments: tongue breaks out Date Reviewed: 09/24/2017 Reviewed by: Marika Sauer Ma - Fully Assessed Reason for Visit: Discussion [813] Cmt: u/s on 09/22/2017 Primary Visit Diagnosis:Postmenopausal atrophic vaginitis [N95.2] Other Visit Diagnoses:Pap smear of cervix unsatisfactory [R87.615] Screening for malignant neoplasm of cervix [Z12.4] Order(s):estradiol (ESTRACE) 0.01 % (0.1 mg/gram) vaginal creama pea-sized amount to lower vagina qhs for 2 weeks then twice weeklyDisp: 1 TubeRfl: 1 PAP FLUID CERVICAL SCREENING [[id number]] Order #: [id number]. #:[id number] Prescriptions as of 09/24/2017 Sig: ERGOCALCIFEROL (VITAMIN D2) 5* Take 50,000 Units by mouth. ESOMEPRAZOLE MAGNESIUM 40 MG * Take 40 mg by mouth. * TRAMADOL 50 MG TABLET Take 50 mg by mouth every 6 h* * IBUPROFEN 800 MG TABLET Take 800 mg by mouth every 6 * * COMPOUNDED PRESCRIPTION Patient has a tens unit. LIDOCAINE 5 % TOPICAL PATCH Apply 1 Patch as directed onc* ESTRADIOL 0.01% (0.1 MG/GRAM)* a pea-sized amount to lower v* Problem List As Of Date: 09/24/2017 (None) Prescriptions ordered this encounter Disp Refills Start End ESTRADIOL 0.01% (0.1 MG/GRAM) VAGINA* 1 Tu* 1 09/24/2017 Sig: a pea-sized amount to lower vagina qhs for 2 weeks then twice weekly Letter Text Dear Valery Devine: How to activate your [facility] Ph[employer] Account 1. Visit the Phyzios Signup page at [email or web address] 2. Identify yourself using your one-time use activation code: Not generated 3. Follow the on-screen prompts to choose your own secure username and password The following information will be necessary to access your account for the first time: Information needed for sign-up: Your custom activation code used one-time only for the initial account set-up. Your date of The last 4 digits of your social security number What to do next: Fill in the requested information on the Identify Yourself Form at [email or web address] , click Next. Create your login and password, choose a Phyzios ID and password that will be easy for you to use, but impossible for anyone else to guess. Pick a security question that will assist you in the event you forget your password the next time you log-on. If you have difficulty activating your account, please call our Phyzios helpline at [phone] or toll free at . We hope you enjoy using Phyzios! Kindest Regards, [facility] Phyzios Team Letter Text Tricia Nieves M.D. [facility] [address] [place], [place] [address] Valery Devine [address] [facility] [address] [facility] [address] 10/01/2017 [facility]: [id number] Dear Valery, We are pleased to inform you that your recent Pap Test was within normal limits. Because Pap tests are so effective in the early detection of cervical cancer, you are encouraged to continue having the test at regular intervals. You will be due for a 1 year Gynecological Exam after this date 09/24/2018. If you have any questions regarding the above information, do not hesitate to call our office at between the hours of 8:00 a.m. and 5:00 p.m. Sincerely, Tricia Nieves M.D. Encounter Status:Closed by TRICIA NIEVES MD on 09/24/17 PROGRESS Observed: 09/23/2017 Status: COMPLETED Source: [place] 1:10 PM [facility] REPOSITORY HNO ID: [id number] Author: Daniel Wade Service: (none) Author Type: Physician Type: Progress Notes Filed: 09/23/2017 1:10 PM Note Text: Please see ultrasound report for details of this visit. Daniel Wade M.D. CNPN Observed: 09/15/2017 Status: COMPLETED Source: [place] 12:00 AM [facility] REPOSITORY Telephone (WOOB) VALERY DEVINE ([id number]) 1950 F Date Time Provider Department 09/15/17 TRICIA NIEVES During your visit today, we recorded the following information about you: Rosi Mckeon RN 09/15/2017 2:17 PM Signed Left message for patient to call the office. Patient is scheduled as [facility] for pelvic pain on 12/03/17. RR reviewed outside records from Sia Mendoza DO. Does patient want to be seen in our office sooner? Did patient have an ultrasound completed yet? Rosi Mckeon RN 09/15/2017 4:25 PM Signed Patient given appointment for pelvic u/s and with RR. Please sign pending u/s order. Rosi Mckeon RN Allergies As of Date: 09/15/2017 Noted Allergy Reaction SULFA (SULFONAMIDE ANTIBIOTICS) 05/03/2011 14 - Other: See Comments Comments: tongue breaks out Date Reviewed: 05/03/2011 Reviewed by: Stacy Medina - Fully Assessed Reason for Visit: Future Appointment [256] Primary Visit Diagnosis:Pelvic pain in female [R10.2] Order(s):PELVIC US [facility] [[id number]] Order #: [id number]: 1 Prescriptions as of 09/15/2017 Sig: * TRAMADOL 50 MG TABLET Take 50 mg by mouth every 6 h* * IBUPROFEN 800 MG TABLET Take 800 mg by mouth every 6 * * COMPOUNDED PRESCRIPTION Patient has a tens unit. LIDOCAINE 5 % TOPICAL PATCH Apply 1 Patch as directed onc* Problem List As Of Date: 09/15/2017 (None) Encounter Status:Closed by TRICIA NIEVES MD on 09/15/17 CBC Collected: 09/03/2017 Status: F Source: [place] [facility] 4:53 PM [facility] REPOSITORY TYPE CODE TESTS RESULT OUT OF REFERENCE UNITS RANGE LAB WBC(LOINC) 4.60-10.80 10 3/mcL WBC 9.50 LAB RBCCT(LOINC 4.20-5.40 10 6/mcL ) RBC 4.61 LAB HGB(LOINC) 12.0-16.0 G/dL Hgb 14.4 LAB HCT(LOINC) 37.0-47.0 % Hct 41.7 LAB MCV(LOINC) 80.0-94.0 fL MCV 90.3 LAB MCH(LOINC) 27.0-31.2 pg MCH 31.1 LAB MCHC(LOINC) 33.0-37.0 G/dL MCHC 34.5 LAB RDW(LOINC) 11.5-14.5 % RDW 14.3 LAB PLT(LOINC) 130-400 10 3/mcL Platelet 247 LAB MPV(LOINC) 7.4-10.4 fL MPV 8.6 Performed By: #### CBC, ADIFF, ANEU, TSH #### [address] [address] #### B12 #### [address] [address] .AUTO DIFF Collected: 09/03/2017 Status: F Source: [facility] 4:53 [facility] REPOSITORY TYPE CODE TESTS RESULT OUT OF REFERENCE UNITS RANGE LAB RHETT(LOINC) 37.0-80.0 % Neutrophil % 70.1 LAB LYM(LOINC) 10.0-50.0 % Lymphocyte % 21.7 LAB MON(LOINC) 1.7-13.0 % Monocyte % 7.2 LAB EO(LOINC) 0.0-7.0 % Eosinophil % 0.5 LAB BAS(LOINC) 0.0-2.5 % Basophil % 0.5 LAB ABLYM(LOIN 0.77-3.85 10 3/mcL C) Lymphocyte, 2.10 Absolute LAB SETH(LOINC 0.15-1.00 10 3/mcL ) Monocyte, 0.70 Absolute LAB AEOS(LOINC 0.00-0.40 10 3/mcL ) Eosinophil, 0.00 Absolute LAB ABAS(LOINC 0.00-0.19 10 3/mcL ) Basophil, 0.00 Absolute Performed By: #### CBC, ADIFF, ANEU, TSH #### [address] [address] #### B12 #### [address] [address] .NEUABS Collected: 09/03/2017 Status: F Source: [facility] 4:53 PM [facility] REPOSITORY TYPE CODE TESTS RESULT OUT OF REFERENCE UNITS RANGE LAB ANEU(LOINC) 2.85-6.16 10 3/mcL High Neutrophil, 6.70 Absolute Performed By: #### CBC, ADIFF, ANEU, TSH #### [address] [address] #### B12 #### [address] [address] TSH Collected: 09/03/2017 Status: F Source: [facility] 4:53 PM [facility] REPOSITORY TYPE CODE TESTS RESULT OUT OF RANGE REFERENCE UNITS LAB TSH(LOINC) 0.27-4.20 mcIU/mL TSH 1.65 Performed By: #### CBC, ADIFF, ANEU, TSH #### [address] [address] #### B12 #### [address] [address] B12 Collected: 09/03/2017 Status: F Source: [facility] 4:53 PM [facility] REPOSITORY TYPE CODE TESTS RESULT OUT OF REFERENCE UNITS RANGE LAB B12(LOINC) 211-911 pg/mL Vitamin B12 337 Lvl Performed By: #### CBC, ADIFF, ANEU, TSH #### [address] [address] #### B12 #### [place] [id number] LUMBAR SPINE 2 OR 3 Observed: 08/12/2017 Status: F Source: [place] VIEWS 5:41 PM [facility] Imaging Services [address] [place] [address] Lumbar Spine 2 or 3 Views MR#: [id number] Acct: [id number] Name: VALERY DEVINE Rep #: [id number] : 1950 F 67 From: Xavi Oshea MD PCP: Bean Knapp DO Status: REG CLI Study: Lumbar Spine 2 or 3 Views Date of Exam: 08/12/17 Exam# [id number] Ordering Dr: Doris Gallegos MD STUDY: X-RAY - LUMBAR SPINE REASON FOR EXAM: Female, 67 years old. Back pain TECHNIQUE: 3 view(s) of the lumbar spine were obtained. COMPARISON: None FINDINGS: Normal lumbar lordosis. There is no substantial scoliosis. There is a normal alignment of the vertebrae. There is generalized demineralization of the vertebral bodies. There is multi-level degenerative disc disease with multi-level disc space narrowing. There is no demonstrated fracture. The soft tissue structures are unremarkable. RAD/Lumbar Spine 2 or 3 Views IMPRESSION: No acute abnormality. Demineralization and degenerative disc disease. Electronically Signed: Xavi Oshea MD at 12:30 EDT , Service support , CC: Doris Gallegos MD; Bean Knapp DO Infrastructure Administrator: Signed [facility] REPORT Observed: 08/12/2017 Status: F Source: [facility] 11:52 AM [facility] REPOSITORY . Pathology Reports Accession: Collected Date/Time: Received Date/Time: Pathologist: [id number] 08/12/2017 11:52 EDT 08/12/2017 18:00 EDT MD JAYME FIZTPATRICK Distance [employer] Faculty Liaison Cytology Report SPECIMEN: Specimen Description: Liquid Prep w/ HPV Specimen: Cervical/Endocervical Screening or Diagnostic: Screening RELEVANT HISTORY: LMP: Post Menopausal [id number] SPECIMEN ADEQUACY: Specimen processed and examined, but unsatisfactory for evaluation of epithelial abnormality because of Scant Cellularity. INTERPRETATION/RESULTS: UNSATISFACTORY SPECIMEN. COMMENT: COMMENT: HPV TESTING CANCELED DUE TO UNSATISFACTORY SPECIMEN, SCANT CELLULARITY. Electronically Signed by Pathology report verified by [facility] Screened by: REMINGTON VIVAS Electronically signed by JAYME FITZPATRICK MD Sign-Out Date: 08/15/2017 14:34 Performing Lab: [address] Disclaimer The Pap test is a screening test for cervical cancer. As evidenced by published data, it is subject to both inherent false negative and false positive results. Your patient's results should be interpreted in context with pertinent clinical history including gynecological examination. Performed By: #### GYCR #### [place] [address] BMP Collected: 08/12/2017 Status: F Source: [place] 10:44 AM [facility] REPOSITORY TYPE CODE TESTS RESULT OUT OF REFERENCE UNITS RANGE LAB 1547-9 80-115 mg/dL Low GLUCOSE 67 LAB NA(LOINC) 136-146 mEq/L Sodium Level 140 LAB K(LOINC) 3.5-5.1 mEq/L Potassium Level 4.1 LAB CL(LOINC) 98-107 mEq/L Chloride 105 LAB CO2(LOINC) 23-31 mEq/L CO2 30 LAB EBAL(LOINC mEq/L ) Electrolyte Balance 5.0 LAB BUN(LOINC) 7.0-18.0 mg/dL BUN 14.0 LAB CRE(LOINC) 0.6-1.2 mg/dL Creatinine Lvl (s) 0.7 LAB BC(LOINC) 7-27 ratio BUN/Creatinine 20 Ratio LAB CA(LOINC) 8.4-10.2 mg/dL Calcium Lvl 9.5 Performed By: #### BMP, MG, GFR #### [place] [id number] #### VIDH #### [place] [address] MG Collected: 08/12/2017 Status: F Source: [place] 10:44 AM [facility] REPOSITORY TYPE CODE TESTS RESULT OUT OF REFERENCE UNITS RANGE LAB MG(LOINC) 1.7-2.5 mg/dL Magnesium Lvl 1.9 Performed By: #### BMP, MG, GFR #### [address] [address] #### VIDH #### [place] [address] .GFR Collected: 08/12/2017 Status: F Source: [place] 10:44 AM [facility] REPOSITORY TYPE CODE TESTS RESULT OUT OF REFERENCE UNITS RANGE LAB GFRAA(LOINC ml/min/1.73 ) sqm GFR 102 [place] Result Comment: GFR Population mean for , Non- Americans Ages 20-29 = 116 mL/min/1.73 sq.m. Ages 30-39 = 107 mL/min/1.73 sq.m. Ages 40-49 = 99 mL/min/1.73 sq.m. Ages 50-59 = 93 mL/min/1.73 sq.m. Ages 60-69 = 85 mL/min/1.73 sq.m. Ages 70+ = 75 mL/min/1.73 sq.m. Chronic Kidney Disease: Less than 60 mL/min/1.73 square meters End Stage Renal Disease: Less than 15 mL/min/1.73 square meters LAB GFRNO(LOINC) ml/min/1.73sqm GFR Non- >60 Result Comment: GFR Population mean for , Non- Americans Ages 20-29 = 116 mL/min/1.73 sq.m. Ages 30-39 = 107 mL/min/1.73 sq.m. Ages 40-49 = 99 mL/min/1.73 sq.m. Ages 50-59 = 93 mL/min/1.73 sq.m. Ages 60-69 = 85 mL/min/1.73 sq.m. Ages 70+ = 75 mL/min/1.73 sq.m. Chronic Kidney Disease: Less than 60 mL/min/1.73 square meters End Stage Renal Disease: Less than 15 mL/min/1.73 square meters Performed By: #### BMP, MG, GFR #### [address] [address] #### VIDH #### [address] [address] VIDH Collected: 08/12/2017 Status: F Source: [facility] 10:44 AM [facility] REPOSITORY TYPE CODE TESTS RESULT OUT OF RANGE REFERENCE UNITS LAB VIDH(LOINC) ng/mL Vit. D 26 25-Hydroxy Result Comment: Interpretive Values Based on Total 25(OH)D: Severe Deficiency <20 ng/mL Mild to Moderate Deficiency 20-30 ng/mL Optimum Levels 30-100 ng/mL Toxicity Possible >100 ng/mL Performed By: #### BMP, MG, GFR #### [address] [address] #### VIDH #### [address] [address] PT D/C SUMMARY (1) Observed: 08/01/2017 Status: F Source: [place] 4:06 PM [facility] Physical Therapy [facility] [address] [place] [address] Fax REHABILITATION SERVICES DISCHARGE SUMMARY MR#: [id number] Acct: [id number] Name: VALERY DEVINE Rep #: [id number] : 1950 67 From: Sonia Oneal PT, Cert. MDT Referring Dr.: Antolin Vera DO Status: REG RCR Insurance: MEDICARE PART A B HP - PT D/C Summary It has been my pleasure to treat VALERY DEVINE under orders from Antolin Vera DO, for the diagnosis of ALLEGRA KNEE OA, STRAIN OF MS/FASC/TND LEFT THIGH. for a total of 6 visit(s). Discharge Date: Please see the following information for a summary of their discharge status. - Subjective Subjective: PATIENT REPORTS SHE CALLED DR. VERA'S OFFICE TO ASK WHAT SHE CAN AND CAN NOT DO AND THE BOARD HAMMER OPERATOR WAS RUDE. PATIENT REPORTS SHE FELT DISREGUARDED AND NEVER GOT A CALL BACK WITH A RESPONSE. DIFFICULTY INITIATING GAIT AFTER SITTING. PATIENT REPORTS HER LEFT KNEE IS GETTING BETTER BUT HER THIGH IS NOT - IT IS STILL BAD. SHE REPORTS SHE DOES NOT FEEL HER THIGH IS GETTING WORSE - ITS THE SAME. MRI 07/24/17 OF LEFT HIP. PATIENT REPORTS DR. VERA TOLD HER THE SHOT SHE WANTS TO HAVE BY DR. GALLEGOS IN HER HIP IS A GOOD IDEA BUT IF IT DOESN'T HELP THE TEAR SHE WILL NEED TO GO TO [place] TO HAVE SURGERY. 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 HER CONSULT FOR A HIP INJECTION IS NEXT FRIDAY WITH DR. GALLEGOS OR THE NEXT WEEK. SHE IS WONDERING IF SHE SHOULD CONTINUE HER HOME EX'S (STRETCHING AND STRENGTHEING) FOR HER LEFT KNEE TOLERATED AND HOLD PT UNTIL AFTER SHE TRIES A SHOT BECAUSE HER HIP PAIN IS LIMITING HER PT. SHE THINKS SHE CAN WORK THE KNEE AT HOME. - Pain Left thigh Pain Intensity (Out of 10): 5 - Objective Objective/Function: GOOD PROGRESS TOWARD ALL LEFT KNEE GOALS. PATIENT IS NOT MAKING PROGRESS WITH HER LEFT HIP AND HER LEFT HIP IS LIMITING HER LEFT KNEE REHAB TO SOME DEGREE. THIS PATIENT AMBULATES INDEP'LY INTO PT WITHOUT ANY ASSISTIVE DEVICES. SHE HAS A MILD LIMP ON HER LEFT LE AND RELATES THE LIMP TO HER LEFT HIP NOT KNEE. SHE IS REPORTING THAT HER KNEE DOESN'T HURT WHEN SHE WALKS BUT HER HIP DOES. SHE IS ABLE TO INDEP'LY TRANSFER FROM SIT TO STAND WITHOUT UE ASSIST. SHE ALSO DEMONSTRATES THE ABILITY TO LIFT HER LLE ONTO THE TABLE WHEN TRANSFERING FROM SIT TO SUPINE WITHOUT UE ASSIST BUT LEFT HIP NOT DIRECTLY TESTED DUE TO PATIENT REFUSING HIP TESTING OR TREATMENT. HER LEFT KNEE PORT HOLES LOOK GOOD WITHOUT ANY SIGNS OF DRAINAGE OR INFECTION. SHE HAS VERY MINIMAL EDEMA LOCALIZED TO THE LEFT KNEE. VERY MILD ECCYMOSIS IS PRESENT AROUND THE KNEE. SHE HAS FULL LEFT KNEE EXT TO 135 DEG FLEXION IN SUPINE WITH A HEEL SLIDE. SHE DEMONSTRATED AND COMMUNICATED A GOOD UNDERSTANDING OF ALL INSTRUCTIONS AFTER GIVEN TODAY. - Goals Goal 1:: DECREASE C/O ALLEGRA HIP AND KNEE PAIN. DECREASE C/O LEFT THIGH PAIN. Goal Progress: Progressing Goal 2:: IMPROVE SITTING, STANDING, WALKING, ADL, RECREATIONAL AND SLEEP FUNCTION Goal Progress: Progressing Goal 3:: INSTRUCT IN PROPHYLAXIS/HEP Goal Progress: Progressing - Plan Plan: D/C TO INDEP LEFT KNEE HEP AT THIS TIME AND TO FOLLOW UP WITH DR. GALLEGOS AND POSSIBLY HIP SURGEON. PATIENT IS AGREEABLE TO D/C. - D/C Information If there are questions or concerns regarding this patient's physical therapy, please feel free to call me at [phone]. Thank you for the referral of this patient. Sincerely, Sonia Oneal <Electronically signed by Sonia Oneal PT, Cert. MDT> 08/01/17 1606 CC: Antolin Vera DO; Bean Knapp DO JOHNATHAN Signed DEXA BONE DENSITY Observed: 07/01/2017 Status: F Source: [place] STUDY () 10:57 AM [facility] Imaging Services [address] [place] [address] Dexa Bone Density Study () MR#: [id number] Acct: [id number] Name: SYBILVALERY Rep #: [id number] : 1950 F 67 From: Eliseo Amaya MD PCP: Bean Knapp MD Status: [facility] Study: Dexa Bone Density Study () Date of Exam: 07/01/17 Exam# [id number] Ordering Dr: Sia Mendoza DO STUDY: DUAL ENERGY X-RAY ABSORPTIOMETRY / DXA REASON FOR EXAM: Female, 67 years old. The patient is postmenopausal. No loss of height. TECHNIQUE: Bone Mineral Density (BMD) measurements of lumbar spine and bilateral hips were obtained. COMPARISON: None. FINDINGS: Lumbar Spine (L1-L4): g/cm2 (0.958) / T-score (-1.8) / Z-score (-0.2) Findings are suggestive of osteopenia with a moderate fracture risk. Left Femur Total: g/cm2 (0.728) / T-score (-2.2) / Z- score (-1.0) Left Femoral Neck: g/cm2 (0.735) / T-score (-2.2) / Z- score (-0.7) Right Femur Total: g/cm2 (0.756) / T-score (-2.0) / Z- score (-0.7) Right Femoral Neck: g/cm2 (0.738) / T-score (-2.2) / Z-score (-0.6) HPBD/Dexa Bone Density Study () IMPRESSION: The patient is considered osteopenic as outlined below according to World Joe Organization (WHO) criteria with a moderate fracture risk. Reference Information: The T-score is the number of standard deviations above or below the standard which is normal for young adults at their peak bone mineral density. The World Health Organization (WHO) interprets the T-scores as follows: Above -1 Normal bone density Between -1 and -2.5 Osteopenia Equal to / or below -2.5 Osteoporosis As a practical clinical guideline, osteopenia may be graded as follows: Mild -1 through -1.5 Moderate -1.6 through -2.0 Severe -2.1 through -2.4 The Z-score is the number of standard deviations above or below age-matched controls. A Z-score of less than -1.5 would be considered abnormal. References: 1. NIH Osteoporosis and Related Bone Diseases http://www.osteo.org 2. International Society for Clinical Densitometry http://www.iscd.org 3. National Osteoporosis Foundation http://www.nof.org Electronically Signed: Eliseo Amaya MD at 13:49 EST Tel [phone], Service support , CC: Sia Mendoza DO; Bean Knapp MD Infrastructure Administrator: Signed INITAL EVALUATION (1) Observed: 06/20/2017 Status: F Source: CONSTANCE - PT 10:23 AM [facility] [address] [place] [address]. [address] [place] [address] Fax REHABILITATION SERVICES INITIAL EVALUATION MR#: [id number] Acct: [id number] Name: VALERY DEVINE Rep #: [id number] : 1950 67 From: Sonia Oneal PT, Cert. T Referring Dr.: Antolin Vera DO Status: REG RCR Insurance: MEDICARE PART A B [facility] Patient's Visit Information VALERY DEVINE is a 67 year old F referred to Physical Therapy by DO JOSHUA Hernandez with a diagnosis of ALLEGRA KNEE OA, STRAIN OF MS/FASC/TND LEFT THIGH.. Date of Evaluation: 06/20/17 Physical Therapist: Sonia Oneal - Visit Plan Frequency: 2x /Week Duration: 4-6 Weeks Plan: LEFT KNEE AND THIGH US. (PATIENT HAS HOME TENS UNIT AND HAS ALREADY STARTED USING IT WITH SOME BENEFIT). ALLEGRA LE ROM, STRETCHING AND STRENGTHENING. NO LUMBAR TREATMENT AT PATIENTS REQUEST. PATIENT REFUSED 3X'S A WEEK. AGREEABLE TO 2X'S A WEEK ON TRIAL BASIS ONLY. - Subjective Subjective: Work/Leisure: RETIRED 2011. 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 ALSO GOES TO THE [employer]LE[employer] AND WORKS OUT DOING STRETCHING AND TONING ONCE A WEEK. 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 Disability: NOT NOW BUT FROM ABOUT 2011 UNTIL RECENTLY SHE WAS. NOW ON MEDICARE. Present symptoms: LEFT HIP/GROIN/THIGH, LEFT KNEE. RIGHT BUTTOCK PAIN AND ANTERIOR HIP/GROIN. INTERMITTENT MILD RIGHT KNEE PAIN. PATIENT DENIES ALLEGRA LE NUMBNESS AND TINGLING. Present since: LEFT KNEE PAIN STARTED BEGINNING OF MAY 2017 THEN THE LEFT THIGH AND HIP. RIGHT KNEE PAIN ALSO STARTED RECENTLY. LEFT CALF LOCKS UP. Pain Scale: RIGHT KNEE PAIN RANGING 0/10 TO 1/10. LEFT KNEE PAIN RANGING 0/10 TO 10/10. LEFT HIP/THIGH PAIN RANGING 0/10 TO 10/10. Currently: RIGHT KNEE PAIN 0/10, LEFT KNEE PAIN 0/10, LEFT HIP/THIGH PAIN RANGING 0/10 TO 10/10. Commenced as a result of: NO APPARENT REASON OTHER THAN PATIENT SUSPECTS THE ELIPTICAL BECAUSE BECAUSE THIS WAS THE NEWEST ACTIVITY AND WAS ADDED INTO HER ROUTINE IN MARCH 2017. Symptoms at onset: LEFT KNEE. Worse: EXERCISING, DANCING, WALKING, RISING FROM SITTING, BENDING, STANDING, TURNING OVER IN BED, SOMETIMES LYING DOWN, SOMETIMES SITTING, GETTING IN/OUT OF CAR, STEPS. Better: IBUPROFEN, ICE. REFUSES ANY OTHER MEDICINE. Disturbed sleep: YES. Previous history/Previous treatment: HISTORY OF LEFT KNEE PAIN A COUPLE YEARS AGO AND RECEIVED A SHOT AND US AND FULL FULL RECOVERY. NO PRIOR HISTORY OF RIGHT KNEE OR LEFT HIP/THIGH PROBLEMS. HISTORY OF RIGHT SCIATICA FOR YEARS UNTIL SURGERY IN 2013. Gait: INDEP WITH NO AD'S. NO FALLS. GOING VERY SLOW BUT STATES ONCE SHE STARTS DANCING IT FEELS BETTER. 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 Accidents: NO. Unexplained weight loss: NO. Imaging: X-RAYS OF BOTH KNEES AND HIPS ORDERED BY DR. VERA AT [facility]. STATES DR. VERA TOLD HER SHE HAS RIGHT KNEE OA, LEFT KNEE MENISCUS TEAR, NORMAL HIPS AND LEFT THIGH STRAIN. SHE REPORTS THAT IF IT KEEPS UP HE WANTS TO DO AN MRI OF HER LEFT LE. PMH: LUNG CANCER WITH LOBECTOMY. NO CHEMO OR RADIATION. LEFT FOOT PLANTAR FASCITIS. ALLEGRA TOES LOCK UP RIGHT > LEFT FOR A COUPLE YEARS. LEAKY HEART VALVE. LUMBAR SURGERY AT [facility] WITH DR. BENITEZ 2013 - NOT SURE OF SPECIFICS BUT IT WORKED. OTHER: PATIENT REPORTS SHE WILL GIVE THIS A WEEK AND IF IT ISN'T BETTER SHE IS QUITING PT. STATES SHE IS NOT GOING TO KEEP COMING BECAUSE OF THE WEATHER. STATES SHE KNOWS HER BACK ACTS OF HERE AND THERE BUT SHE DOES NOT WANT US TO MESS WITH THAT. - Objective THIS PATIENT AMBULATES INDEP'LY INTO PT WITHOUT AD LIMPITNG ON THE LLE AND WITH INCREASED TRUNK FLEXION. INDEP TRANSFER SIT TO STAND WITHOUT UE ASSIST BUT DIFFICULTING INITIATING GAIT ON LLE. GAIT IMPROVES WITH TIME BUT CONSTANT LIMP. LUMBAR SCREENING NOT PERFORMED AT PATIENTS REQUEST. ALLEGRA LE LIGHT TOUCH SENSATION IS INTACT AND SYMMETRICAL. ALLEGRA LE ROM WFL EXCEPT APPROX 25% LOSS OF LEFT KNEE FLEX AND HIP IR/ER COMPARED TO RIGHT. RIGHT LE STRENGTH WITH MMT: HIP FLEX 4/5 WITH TESTING PROVOKING RIGHT HIP/GROIN PAIN, ABD 4/5, ADD 4/5, IR 4/5, ER 4-/5, KNEE EXT 5/5, KNEE FLEX 5/5 ANKLE DORSIFLEXION 5/5. LEFT LE: HIP FLEX 4-/5, ABD 4/5, ADD 4/5, IR 4-/5, ER 3+/5, KNEE EXT 4/5, KNEE FLEX 4/5, ANKLE DORSIFLEX 5/5. LEFT HIP MMT ALL PLANES PROVOKES RIGHT HIP/THIGH PAIN WELL KNEE EXT TESTING. SHE IS ALSO TENDER WITH PALPATION OF THE LEFT MEDIAL KNEE AND ANTERIOR MID 1/3 OF THIGH. SHE STATES SHE FEELS A LUMP IN THE BACK OF THE LEFT KNEE BUT THIS PT DID NOT FEEL IT. MILD EDEMA OF LEFT THIGH AND KNEE COMPARED TO RIGHT. TREATMENT: US TO RIGHT KNEE X 5 HALEY AT 1.3 W/CM2 AND TO LEFT ANT THIGH AT 1.5 W/CM2 X 5 MIN. PATIENT REPORTED DECREASED LLE PAIN WITH WALKING AFTER US. INSTRUCTED PATIENT TO REST LE'S AND AVOID INCREASING PAIN WITH ACTIVITIES. PATIENT COMMUNICATED A GOOD UNDERSTANDING OF RECOMMENDATIONS BUT IS RELUCTANT TO COMPLY. STATES SHE IS PLANNING TO HAVE LEFT KNEE MENISCUS REPAIR SPRING BREAK. - Goals Goal 1:: DECREASE C/O ALLEGRA HIP AND KNEE PAIN. DECREASE C/O LEFT THIGH PAIN. Goal Time Frame: 4-6 Weeks Goal 2:: IMPROVE SITTING, STANDING, WALKING, ADL, RECREATIONAL AND SLEEP FUNCTION Goal Time Frame: 4-6 Weeks Goal 3:: INSTRUCT IN PROPHYLAXIS/HEP Goal Time Frame: 4-6 Weeks - Rehabilitation Potential Physical Therapy Diagnosis: DID NOT TEST LUMBAR SPINE DUE TO PATIENTS RELUCTANCE. Rehabilitation Potential: Fair - Anticipated Interventions Patient/Client Instruction: Educate patient on: Condition, Plan of Care, Risk Factors, Benefits of Fitness Program For the Purpose of:: To improve self management Therapeutic Exercise to Include: Strength training, Flexibilty training, Gait and locomotor training, Passive ROM, Active ROM For the Purpose of:: To decrease pain, To increase ROM, To improve muscle performance and motor function, To improve gait and locomotor functions Cryotherapy (ice pack, ice massage): Yes Thermo therapy (hot pack): Yes Ultrasound (thermal/non thermal): Yes For the Purpose of:: To decrease pain, To decrease swelling/inflammation, To increase ROM Thank you for the opportunity to evaluate your patient. For Medicare and Medicare HMO plans, please review the plan of care and approve it. It will need to be FAXED BACK to us at [phone] for Medicare purposes. Please let me know if there are questions or concerns regarding this plan of care. Physician Signature: Date: <Electronically signed by Sonia Oneal PT, Cert. MDT> 06/20/17 1023 CC: Antolin Vera DO; Bean Knapp MD JOHNATHAN Signed For Medicare only, by signing this I certify the plan of care. Physicians Signature Date ALLERGIES ALLERGIES DATE TYPE / CODE NAME / CODE REACTION SEVERITY SOURCE 04/21/2018 Drug Sulfa sores in mouth [place] [facility] Allergy/4160 (Sulfonamide Hospital 69005(SNOMED Antibiotics) Repository CT) /[id number]( RXNORM) 04/21/2018 Drug amoxicillin/ yeast bladder [place] [facility] Allergy/4160 [id number](R infections Hospital 68916(SNOMED XNORM) Repository CT) 05/03/2011 Drug SULFA OTHER: SEE C [facility] Class/754296 (SULFONAMIDE [place] 003(SNOMED ANTIBIOTICS) Repository CT) ENCOUNTERS ENCOUNTERS ADMIT/DISCHARGE ACCOUNT NUMBER ADMITTING ENCOUNTER LOCATION SOURCE CLASS 06/08/2018 [id number] Ambulatory [facility] ding:CT Repository 06/03/2018/06/03/19 [id number] Ambulatory BMSBuilding: [place] [facility] Repository 05/06/2018 [id number] Ambulatory [facility] ding:RAD Repository 04/21/2018/04/21/20 [id number] Ambulatory BMSBuilding: [place] 18 BMS.[facility] Repository 04/14/2018/04/14/20 [id number] Ambulatory BMSBuilding: [place] 18 BMS[facility] Repository 03/27/2018/03/27/20 [id number] Ambulatory BMSBuilding: [place] 18 BMS.[facility] Repository 03/24/2018/03/24/20 [id number] Ambulatory BMSBuilding: [place] 18 BMS.[facility] Repository 01/29/2018 [id number] Ambulatory [facility] ding:LABSPEC Repository 01/28/2018/01/29/20 [id number] Ambulatory BMSBuilding: [place] 18 BMS[facility] Repository 12/24/2017/12/25/19 [id number] Ambulatory BMSBuilding: [place] 18 BMS[facility] Repository 12/05/2017 [id number] Ambulatory [facility] ding:HPRAD Repository 12/04/2017/12/05/19 [id number] Ambulatory BMSBuilding: [place] 18 BMS[facility] Repository 11/28/2017/11/29/19 [id number] Ambulatory BMSBuilding: [place] 18 BMS.[facility] Repository 11/14/2017 [id number] Ambulatory [facility] ding:LABSPEC Repository 11/04/2017 [id number] Ambulatory [facility] ding:MTLAB Repository 10/03/2017 [id number] Ambulatory [facility] ding:MTLAB Repository 10/03/2017/10/04/19 [id number] Ambulatory BMSBuilding: [place] 18 [facility]MS[facility] Repository 10/03/2017 [id number] Ambulatory BMSBuilding: [place] [facility] Repository 09/24/2017/09/30/19 [id number] Ambulatory [address] Repository 09/22/2017/11/08/19 [id number] Ambulatory [address] Repository 09/03/2017/09/04/19 [id number] Ambulatory [address] ding:OLAB [facility] Repository 08/20/2017 [id number] Ambulatory [facility] ding:USHP Repository 08/12/2017 [id number] Ambulatory [facility] ding:RAD Repository 08/12/2017/08/17/19 [id number] Ambulatory [address] ding:DROP [facility] Repository 08/01/2017/08/02/19 [id number] Ambulatory [address] ding:PT Repository 07/01/2017 [id number] Ambulatory [facility] ding:BD Repository PAYERS PAYERS ENCOUNTER GUARANTOR PAYER SUBSCRIBER SOURCE 06/08/2018 GREG Cardenas Primary VALERYFRED Nolasco [id number] Insurance:MEDICARE FOLTZDOB: Community [facility] PART A BPolicy [id number] Hospital [address], Number: Repository [place] [address]Eui: [phone]) [id number] () Date:2018-06-03 06/08/2018 Secondary VALERY Zaida Nolasco Insurance[facility] F[facility]: [facility] Number: [id number] Hospital [id number] Repository Date:3305-67-61TZ [address], [place] [address]BB: 06/08/2018 Tertiary NOT GIVENUNK [place] Insurance:SELF PAY [facility] [place] Number: Effective Repository Date:2018-06-03 06/03/2018 VALERY A Primary VALERY A [place] [id number] Insurance:MEDICARE FOLTZDOB: Community [place] PART A [facility] [id number], Number: Repository [place] [address]Bxn: [phone] [id number] [phone] (HP) Date:2018-04-14 06/03/2018 Secondary VALERY A [place] Insurance:CHAMPVAPol FOLTZDOB: [facility] icy Number: [id number] Hospital [id number] Repository Date:7669-25-06IQ [address], [place] [address]DI: 06/03/2018 Tertiary NOT GIVENUNK [place] Insurance:SELF PAY [facility] [place] Number: Effective Repository Date:2018-05-25 05/06/2018 GREG Cardenas Primary VALERY A [place] [id number] Insurance:MEDICARE FOLTZDOB: [facility] PART A [facility] [id number], Number: Repository [place] [address]Dvr: 330 [id number] [phone] (HP) Date:2018-05-06 05/06/2018 Secondary VALERY A [place] Insurance:[facility] FOLTZDOB: [facility] icy Number: [id number] Hospital [id number] Repository Date:6333-84-65DX [address], [place] [address]DC: 05/06/2018 Tertiary NOT GIVENUNK [place] Insurance:SELF PAY [facility] Number: Effective Repository Date:2018-05-06 04/21/2018 GREG Cardenas Primary VALERY A [place] [id number] Insurance:MEDICARE FOLTZDOB: [facility] [id number], Number: Repository [place] [address]Dha: [phone] [id number] [phone] (HP) Date:2018-04-21 04/21/2018 Secondary VALERY A [place] Insurance:[facility] FOLTZDOB: [facility] icy Number: [id number] Hospital [id number] Repository Date:4667-21-99BC [address], [place] [address]XI: 04/21/2018 Tertiary NOT GIVENUNK [place] Insurance:SELF PAY [facility] [place] Number: Effective Repository Date:2018-04-21 04/14/2018 GREG Cardenas Primary VALERY A [place] [id number] Insurance:MEDICARE FOLTZDOB: [facility] PART A [facility] [id number], Number: [place]ository [place] [address]Tzk: 330 [id number] () Date:2018-04-14 04/14/2018 Secondary VALERY A [place] Insurance:[facility] System[facility]: [facility] icy Number: [id number] Hospital [id number] Repository Date:3291-02-72DC [address], [place] [address]LU: 04/14/2018 Tertiary NOT GIVENUNK [place] Insurance:SELF PAY [facility] [place] Number: Effective Repository Date:2018-04-14 03/27/2018 GREG Cardenas Primary VALERY A [place] [id number] Insurance:MEDICARE FOLTZDOB: [facility] PART A [facility] [id number], Number: Repository [place] [address]Mye: 330 [id number] [phone] (HP) Date:2018-03-27 03/27/2018 Secondary VALERY A [place] Insurance:[facility]ATemple [facility] Health SystemTZD[facility]: [facility] ic Number: [id number] Hospital [id number] Repository Date:8391-61-28SY [address]FM[place], [place] [address]NB: 03/27/2018 Tertiary NOT GIVENUNK [place] Insurance:SELF PAY [facility] [place] Number: Effective Repository Date:2018-03-27 03/24/2018 GREG Cardenas Primary VALERY A [place] [id number] Insurance:MEDICARE FOLTZDOB: Community [facility] PART A [facility] [id number], Number: Repository [place] [address]Xpd: 330 [id number] [phone] (HP) Date:2018-03-24 03/24/2018 Secondary VALERY A [place] Insurance:CHAMPVAPol FOLTZDOB: [facility] icy Number: [id number] Hospital [id number] Repository Date:9993-87-20IP [address]TF, [place] [address]KR: 03/24/2018 Tertiary NOT GIVENUNK [place] Insurance:SELF PAY [facility] [place] Number: Effective Repository Date:2018-03-24 01/29/2018 GREG Cardenas Primary VALERY A [place] [id number] Insurance:MEDICARE FOLTZDOB: Critical [facility] PART A [facility] [id number], Number: Repository [place] [address]Vmz: 330 [id number] [phone] (HP) Date:2018-01-29 01/29/2018 Secondary VALERY A [place] Insurance:CHAMPVAPol FOLTZDOB: [facility] icy Number: [id number] Hospital [id number] Repository Date:6286-52-53MQ [address]JXW[place], [place] [address]XA: 01/29/2018 Tertiary NOT GIVENUNK [place] Insurance:SELF PAY [facility] [place] Number: Effective Repository Date:2018-01-29 01/28/2018 GREG Cardenas Primary VALERY A [place] [id number] Insurance:MEDICARE FOLTZDOB: Critical [facility] PART A [facility] [id number], Number: Repository [place] [address]Qmw: 330 [id number] [phone] (HP) Date:2018-01-28 01/28/2018 Secondary VALERY A [place] Insurance:CHAMPVAPol FOLTZDOB: [facility] icy Number: [id number] Hospital [id number] Repository Date:4024-55-99TC [address], [place] [address]JJ: 01/28/2018 Tertiary NOT GIVENUNK [place] Insurance:SELF PAY [facility] [place] Number: Effective Repository Date:2018-01-28 12/24/2017 GRGE Cardenas Primary VALERY A [place] [id number] Insurance:MEDICARE FOLTZDOB: Community [place] PART A [facility] [id number], Number: Repository [place] [address]Ded: [phone] [id number] [phone] (HP) Date:2017-12-24 12/24/2017 Secondary VALERY A [place] Insurance:CHAMPVAPol FOLTZDOB: [facility] icy Number: [id number] Hospital [id number] Repository Date:4850-79-61JW [address], [place] [address]ZI: 12/24/2017 Tertiary NOT GIVENUNK [place] Insurance:SELF PAY [facility] [place] Number: Effective Repository Date:2017-12-24 12/05/2017 GREG Cardenas Primary VALERY A [place] [id number] Insurance:MEDICARE FOLTZDOB: Community [place] PART A [facility] [id number] [address], Number: Repository [place] [address]Cri: [phone] [id number] [phone] (HP) Date:2017-12-05 12/05/2017 Secondary VALERY A [place] Insurance:CHAMPVAPol FOLTZDOB: [facility] icy Number: [id number] Hospital [id number] Repository Date:0053-65-44YY [address], [place] [address]MA: 12/05/2017 Tertiary NOT GIVENUNK [place] Insurance:SELF PAY [facility] [place] Number: Effective Repository Date:2017-12-05 12/04/2017 GREG Cardenas Primary VALERY A [place] [id number] Insurance:MEDICARE FOLTZDOB: Community [place] PART A [facility] [id number], Number: Repository [place] [address]Xvg: 330 [id number] [phone] (HP) Date:2017-10-03 12/04/2017 Secondary VALERY A [place] Insurance:CHAMPVAPol FOLTZDOB: [facility] icy Number: [id number] Hospital [id number] Repository Date:6132-33-12SS [address], [place] [address]MN: 12/04/2017 Tertiary NOT GIVENUNK [place] Insurance:SELF PAY [facility] [place] Number: Effective Repository Date:2017-12-04 11/28/2017 GREG Cardenas Primary VALERY A [place] [id number] Insurance:MEDICARE FOLTZDOB: [facility] A [facility] [id number], Number: Repository [place] [address]Vxv: 330 [id number] [phone] (HP) Date:2017-11-28 11/28/2017 Secondary VALERY A [place] Insurance:CHAMPVAPol FOLTZDOB: [facility] icy Number: [id number] Hospital [id number] Repository Date:8800-63-25TE [address]RHXDBC, [place] [address]GA: 11/28/2017 Tertiary NOT GIVENUNK [place] Insurance:SELF PAY [facility] [place] Number: Effective Repository Date:2017-11-28 11/14/2017 GREG Cardenas Primary VALERY A [place] [id number] Insurance:MEDICARE FOLTZDOB: [facility] PART A [facility] [id number], Number: Repository [place] [address]Eca: 330 [id number] [phone] (HP) Date:2017-11-14 11/14/2017 Secondary VALERY A [place] Insurance:CHAMPVAPol FOLTZDOB: [facility] icy Number: [id number] Hospital [id number] Repository Date:6439-31-25QB [address]KPVKZC, [place] [address]SX: 11/14/2017 Tertiary NOT GIVENUNK [place] Insurance:SELF PAY [facility] [place] Number: Effective Repository Date:2017-11-14 11/04/2017 Greg Cardenas Primary VALERY A [place] [id number] Insurance:MEDICARE FOLTZDOB: Community [place] PART A [facility] [id number] Hospital [address], Number: Repository [place] [address]Fmy: [phone] [id number] [phone] (HP) Date:2017-11-04 11/04/2017 Secondary VALERY A [place] Insurance:[facility] FOLTZDOB: [facility] icy Number: [id number] Hospital [id number] Repository Date:0534-02-75QF [facility] 135731VQVJSN, [place] [address]KL: 11/04/2017 Tertiary NOT GIVENUNK [place] Insurance:SELF PAY [facility] [place] Number: Effective Repository Date:2017-11-04 10/03/2017 Greg Cardenas Primary VALERY A [place] [id number] Insurance:MEDICARE FOLTZDOB: Community [place] PART A [facility] [id number] Hospital LnUnit [address], Number: Repository [place] [address]Wfw: [phone] [id number] [phone] (HP) Date:2017-10-03 10/03/2017 Secondary VALERY A [place] Insurance:[facility] FOLTZDOB: Community icy Number: [id number] Hospital [id number] Repository Date:8221-86-23CO [facility] [address]15938MJQZFP, [place] [address]BD: 10/03/2017 Tertiary NOT GIVENUNK [place] Insurance:SELF PAY [facility] [place] Number: Effective Repository Date:2017-10-03 10/03/2017 Greg Cardenas Primary VALERY A [place] [id number] Insurance:MEDICARE FOLTZDOB: Community [place] PART A [facility] [id number] Hospital LaneUnit Number: Repository [place], [place] [id number] [address]Wcs: 330) Date:2017-10-02 (HP) 10/03/2017 Secondary VALERY A [place] Insurance:[facility] [place] FOLTZDOB: [facility] icy Number: [id number] Hospital [id number] Repository Date:0526-82-06[address]U, [place] [address]VB: 10/03/2017 Tertiary NOT GIVENUNK [place] Insurance:SELF PAY [facility] [place] Number: Effective Repository Date:2017-10-02 10/03/2017 Greg Cardenas Primary VALERY A [place] [id number] Insurance:MEDICARE FOLTZDOB: [facility] PART A [facility] [id number] Health ClinicUnit Number: Repository [address], [place] [id number] [address]Zql: (330) Date:2017-10-03 () 10/03/2017 Secondary VALERY A [place] Insurance:[facility] FOLTZDOB: [facility] icy Number: [id number] Hospital [id number] Repository Date:7319-70-72[address]XFHBK, [place] [address]VB: 10/03/2017 Tertiary NOT GIVENUNK [place] Insurance:SELF PAY [facility] [place] Number: Effective Repository Date:2017-10-03 09/03/2017 VALERY A Primary VALERY A [facility] FOLTZDOB: Insurance:MEDICARE FOLTZDOB: [facility] [id number] PART olicy Number: [id number] Repository [facility] [address] [id number] [facility] [address], Date:2017-09-03 - [address] [place] [address] [id number] [place] [address]Vcq: [id number] Name:RADHA Annalisa: (330) Administrators LLCPO (HP) (HP)Tel: [address]Aoklvddbv, [phone] (WP) [place] [address]JW: (999) (WP) [phone] 09/03/2017 Secondary VALERY Martínez Health Insurance:[facility]ERVATemple University Health SystemTZDOB: [facility] icy Number: [id number] Repository [id number] [facility] Date:2017-09-[address] [facility], [id number] [place] [address]Bzh: Name:[facility] [address], [place] (HP)Tel: [phone]: [phone] 08/20/2017 Greg Cardenas Primary Valery Cerda [place] [id number] Insurance:MEDICARE FoltzDOB: [facility] [id number] [facility] Indian Hospitalit Number: Repository [address] [place] [address] [id number]: (330) Date:2017-08-14 [phone] () 08/20/2017 Secondary VALERY A [place] Insurance:[facility]AT[facility] University [facility] SystemTZDOB: [facility] icy Number: [id number] Hospital [id number] Repository Date:6757-12-05[address], [place] [address]KB: 08/20/2017 Tertiary NOT GIVENUNK [place] Insurance:SELF PAY [facility] [place] Number: Effective Repository Date:2017-08-14 08/12/2017 Greg Cardenas Primary Valery A [place] [id number] Insurance:MEDICARE FoltzDOB: [facility] [id number] Health ClinicUnit Number: Repository [address] [place] [address] [id number]: (330) Date:2017-08-12 [phone] (HP) 08/12/2017 Secondary VALERY A [place] Insurance:[facility] SystemTZDOB: [facility] icy Number: [id number] Hospital [id number] Repository Date:0833-59-62[address], [place] [address]AC: 08/12/2017 Tertiary NOT GIVENUNK [place] Insurance:SELF PAY [facility] [place] Number: Effective Repository Date:2017-08-12 08/12/2017 VALERY A Primary VALERY Zaida [facility]: Insurance:MEDICARE FOLTZDOB: [facility] [id number] PART BPolicy Number: [id number] Repository [facility] [address] [id number] [facility] [address], Date:2017-08-12 - [address], [place] [id number] [place] [address]Nij: [id number] Name:[facility] OL.COMTel: (330) Administrators LLCPO (HP) (HP)Tel: [address]Wgeuxfvpj, [phone] (WP) [place] [address]SI: [phone] ([phone] 08/12/2017 Secondary VALERY [facility]da [facility]: [facility] icy Number: [id number] Repository [id number] [facility] [address] Date:2017-08-12 - [address], [id number] [place] [address]Uhc: Name:[employer] [address]Mqbml[place], [place] ()Tel: [phone]: [phone] 08/01/2017 Greg Cardenas Primary Valery Nolasco [id number] Insurance:MEDICARE FoltzDOB: [facility] PART A BPolicy [id number] Hospital LaneUnit Number: Repository [address], [place] [id number]: (330) Date:2013-11-23 [phone] () 08/01/2017 Secondary VALERY Cerda [place] Insurance:[facility] HospitalTZB: [facility] icy Number: [id number] Hospital [id number] Repository Date:0477-27-72[address] [address], [place] [address]PS: 08/01/2017 Tertiary NOT GIVENUNK [place] Insurance:SELF PAY [facility] Number: Effective Repository Date:2017-06-16 07/01/2017 Greg Cardenas Primary Valery Nolasco [id number] Insurance:MEDICARE FoltzDOB: [facility] PART A BPolicy [id number] Hospital LaneUnit Number: Repository [address], [place] [id number]: (330) Date:2017-06-27 [phone] (HP) 07/01/2017 Secondary VALERY Zaida [place] Insurance:CHAMPVAPol FOLTZDOB: Community icy Number: [id number] Hospital [id number] Repository Date:8014-84-47[address], [place] [address]OB: 07/01/2017 Tertiary NOT GIVENUNK [place] Insurance:SELF PAY [facility] [place] Number: Effective Repository Date:2017-06-27
== END ==
PROVIDERS: Family Provider Family Medicine; PCP Family Medicine; Referring Provider Anesthesiology Pain Medicine; Visit Provider Anesthesiology Pain Medicine
DX: M54.6 Pain in thoracic spine (principal)
CPT/HCPCS: 72070

== ENCOUNTER → 2018-06-08 08:19 | Outpatient (CLI) | payer MEDICARE, OTHER, SELFPAY ==
[2018-06-03 13:58] VITALS: BMI 27.4
--- NOTE | 2018-06-08 08:23 | CT_ITS ---
STUDY: CT CHEST WITHOUT CONTRAST REASON FOR EXAM: Female, 68 years old. Follow-up lung cancer RADIATION DOSAGE (If Supplied By Facility): CTDIvol = ( 7.54 ) mGy, DLP = ( 286.53 ) mGycm TECHNIQUE: Transaxial imaging was performed without the administration of intravenous contrast material. Individualized dose optimization techniques were used for this CT. COMPARISON: Report of prior study of 04/04/2012 FINDINGS: There are mild emphysematous changes of the lungs. There are findings consistent with left upper lobectomy with left hemithoracic volume loss. There is no demonstrated pleural abnormality. The heart size is within normal limits. Coronary arterial calcifications are present. There are surgical clips of the left hilus and mediastinum. There is no evidence of hilar mass or adenopathy. Normal unenhanced pulmonary arteries. Normal aorta arch and descending thoracic aorta. There are multi-level degenerative changes of the thoracic spine. There is a moderate-sized hiatal hernia. CT/Chest without Contrast IMPRESSION: Mild emphysematous changes of the lungs. Findings consistent with left upper lobectomy with associated findings of left hemithoracic volume loss. Surgical clips are seen in the left hilus and mediastinum. There is no evidence of new or recurrent mass or adenopathy. Moderate sized hiatal hernia. Degenerative changes of the visualized thoracic spine. Electronically Signed: Olayinka Arreguin MD at 17:22 EST , Service support ,
== END ==
PROVIDERS: Family Provider Family Medicine; PCP Family Medicine; Referring Provider Family Medicine; Visit Provider Family Medicine
DX: C34.90 Malignant neoplasm of unspecified part of unspecified bronchus or lung (principal)
CPT/HCPCS: 71250

== ENCOUNTER → 2018-07-15 15:24 | Outpatient (CLI) | payer MEDICARE, OTHER, SELFPAY ==
[2018-06-03 13:58] VITALS: BMI 27.4
--- NOTE | 2018-07-15 15:26 | BI_ITS ---
MAMMOGRAPHY - BILATERAL SCREENING REASON FOR EXAM: Female, 68 years old. Routine annual screening examination. PERTINENT HISTORY: Non-contributory. TECHNIQUE: Digital bilateral breast lisa (3D mammographic acquisition) in the CC and MLO projections. 2-D mediolateral oblique (MLO) and craniocaudad (CC) views of both breasts were obtained. CAD: Full Field Digital Mammography with Computer Added Detection was performed. COMPARISON: Comparison is made with prior examination dated June 27, 2016. FINDINGS: Breast Composition: There are scattered areas of fibroglandular density. There are no dominant masses or suspicious calcifications. No other significant abnormalities are identified. There has been no significant change since the prior study. BI/SCREEN MAMM (CAD) W/LISA BILAT IMPRESSION: Stable bilateral screening mammogram. Yearly follow-up mammogram recommended. (A) ASSESSMENT CATEGORY: BIRADS Category 1: Negative. A letter regarding these results will be sent to the patient by the facility within 30 days. Approximately 10% of breast cancers are not detected by mammography. A normal mammogram should not delay biopsy of a clinically suspicious abnormality. [id number] Electronically Signed: Eliseo Amaya MD at 8:53 EST , Service support ,
== END ==
PROVIDERS: Family Provider Family Medicine; PCP Family Medicine; Referring Provider Family Medicine; Visit Provider Family Medicine
DX: Z12.31 Encounter for screening mammogram for malignant neoplasm of breast (principal)
CPT/HCPCS: 77063; 77067

== ENCOUNTER → 2019-04-19 13:43 | Outpatient (CLI) | payer MEDICARE, OTHER, SELFPAY ==
[2019-02-19 13:34] VITALS: BMI 26.9
--- NOTE | 2019-04-19 13:47 | RAD_ITS ---
STUDY: X-RAY CHEST REASON FOR EXAM: Female, 69 years old. TECHNIQUE: 2 views COMPARISON: December 05, 2017 FINDINGS: The lungs are clear and hyperexpanded. There is no demonstrated pleural abnormality. Normal size heart. Normal mediastinum and krishna. Normal visualized pulmonary arteries. Normal visualized aortic arch and descending thoracic aorta. Normal visualized thoracic spine. Normal visualized ribs, clavicles, and shoulders. There is small fixed hiatal hernia There is no demonstrated abnormality of the visualized soft tissue structures of the upper abdomen. RAD/Chest PA and Lateral IMPRESSION: Small fixed hiatal hernia versus of the study is negative. Hyperexpanded clear lungs. Without significant change since December 05, 2017 Electronically Signed: Mini Kang, at 15:07 EST Tel , Service support ,
== END ==
PROVIDERS: Family Provider Family Medicine; PCP Family Medicine; Referring Provider Nurse Practitioner Family; Visit Provider Nurse Practitioner Family
DX: R05 Cough (principal)
CPT/HCPCS: 71046

== ENCOUNTER → 2019-07-22 | Outpatient (CLI) | payer MEDICARE, OTHER, SELFPAY ==
[2019-05-07 08:11] VITALS: BMI 26.9
--- NOTE | 2019-07-22 16:48 | CT_ITS ---
STUDY: CT LEFT LOWER EXTREMITY WITHOUT CONTRAST REASON FOR EXAM: Osteoarthritis, surgical planning. TECHNIQUE: Transaxial CT imaging of the knee/hip/ankle was performed. Coronal and sagittal images were reformatted. Individualized dose optimization techniques were used for this CT. COMPARISON: None. FINDINGS: Left Knee: There is joint space narrowing of the medial femorotibial compartment with a subchondral lesion of the medial femoral condyle (sagittal reconstruction 34-36). Normal lateral femoral condyle and lateral tibial plateau. There is preservation of the articular joint space of the lateral knee compartment. There is preservation of the joint space of the patellofemoral articulation. There is a small ossicle adjacent to the lateral patellar facet. Normal proximal tibiofibular articulation. There is no joint effusion. The quadriceps tendon is grossly normal. The patellar tendon is grossly normal. Normal Hoffa''s fat pad. The soft tissues are unremarkable. Left Hip: Normal visualized proximal femur and acetabulum. There is preservation of the joint space of the left hip. There is enthesopathy of the left ischial tuberosity axial images 28-31). Left Ankle: There is an osteochondral lesion of the medial talar dome (sagittal reconstruction 16; coronal reconstruction 15) measuring 0.6 cm in AP dimension. Normal posterior subtalar, talonavicular calcaneocuboid articulations. Normal distal tibia, distal fibula, calcaneus, and visualized navicular. CT/Extremity Lower without Contra IMPRESSION: Arthrosis of the medial femorotibial compartment of the knee. Osteochondral lesion of the medial talar dome of the ankle. Electronically Signed: Mikel Easley MD at 15:30 EST Tel , Service support ,
== END | disposition home or self-care (01) ==
LOC: CT 16:46
PROVIDERS: PCP Family Medicine; Referring Provider Orthopaedic Surgery; Visit Provider Orthopaedic Surgery
DX: M17.12 Unilateral primary osteoarthritis, left knee (principal); M21.162 Varus deformity, not elsewhere classified, left knee
CPT/HCPCS: 73700

== ENCOUNTER 2019-08-09 10:23 | Observation (INO) | payer MEDICARE, OTHER, SELFPAY ==
[2019-05-07 08:11] VITALS: BMI 26.9
[2019-07-23 14:21] VITALS: BP 111/74; PULSE 69; RESP 16; TEMP 36.1; O2SAT 97; BMI 27.3
--- NOTE | 2019-07-23 14:38 | SDCEKG_ITS ---
Test Reason : Blood Pressure : / mmHG Vent. Rate : 064 BPM Atrial Rate : 064 BPM P-R Int : 114 ms QRS Dur : 076 ms QT Int : 416 ms P-R-T Axes : 066 044 051 degrees QTc Int : 429 ms Normal sinus rhythm Normal ECG Confirmed by PRIYANKA VELAZQUEZ, KIYA ([id number]), newspaper or periodical editor LACHELLE MCLAUGHLIN ([id number]) on 07/26/2019 9:48:47 AM Referred By: Marcus Champion Confirmed By:KIYA MATHEW MD
[2019-07-23 14:55] LABS: Absolute Lymphocyte Count 2.09 X10^3/uL (0.83-4.51); Absolute Neutrophil Count 3.4 X10^3/uL (2.0-7.7); Basophil# 0.03 X10^3/uL; Basophil% 0.5 % (0-1); Eosinophil# 0.03 X10^3/uL; Eosinophils% 0.5 % (0-5); Hematocrit 43.5 % (37-47); Hemoglobin 14.1 g/dL (12.0-15.0); Lymphocyte # 2.09 X10^3/ul (4.0); Lymphocyte % 35.6 % (19-41); Mean Corp Hgb Conc 32.4 g/dL (32-36); Mean Corpuscular Hgb 29.3 pg (27.0-32.0); Mean Corpuscular Volume 90.4 fL (81-99); Mean Platelet Vol. 10.9 fl (6.2-12.0); Monocyte# 0.35 X10^3/uL; NRBC Flagged by Analyzer 0 % (0-5); Neutrophil # 3.35 X10^3/uL (2.7-7.7); Neutrophil % 57.1 % (47-70); Platelet Count 218 K/mm3 (150-450); RBC Distribution Width CV 13.6 % (11.6-14.6); RBC Distribution Width SD 45.9 fl (35.1-43.9); Red Blood Count 4.81 M/mm3 (4.2-5.4); White Blood Count 5.9 K/mm3 (4.4-11.0)
[2019-07-23 15:23] LABS: Anion Gap 3 (5-15); BUN 15 mg/dL (7-18); BUN/Creat Ratio 19.1 RATIO (10-20); Chloride 111 mmol/L (98-107); Creatinine, Serum 0.78 mg/dL (0.55-1.02); EST Glomerular Filtration Rate 77 mL/min (>60); Est Glom Filt Rate - Afr Amer 94 mL/min (>60); Glucose 101 mg/dL (74-106); Sodium Level 143 mmol/L (136-145)
[2019-08-09] VITALS (8 sets, daily range): BP systolic 92–126; BP diastolic 60–82; PULSE 61–88; RESP 15–18; TEMP 36.2–36.6; O2SAT 95–100; BMI 27.3
[2019-08-09] MEDS: Acetaminophen 500 MG Tablet 1000 MG PO ×2 (10:14→18:38)
[2019-08-09] MEDS: Gabapentin 600 MG Tablet PO (10:15)
[2019-08-09] MEDS: Lactated Ringers 1,000 ML 999 ML IV (10:16)
--- NOTE | 2019-08-09 10:25 | RAD_ITS ---
STUDY: X-RAY - LEFT KNEE REASON FOR EXAM: Postop knee arthroplasty. TECHNIQUE: 2 view(s) of the knee. COMPARISON: CT images 07/22/2019. FINDINGS: There is a left total knee arthroplasty without evidence of complication. There is postoperative gas in the soft tissues and overlying skin jorge. RAD/Knee 1 or 2 Views IMPRESSION: Uncomplicated left total knee arthroplasty. Electronically Signed: Mikel Easley MD at 14:57 EDT Tel , Service support ,
[2019-08-09 10:36] LABS: Bedside Glucose 78 mg/dL (70-110)
--- NOTE | 2019-08-09 11:40 | KNEE_PTH ---
PATIENT: DANISHA DEVINE LOC: MS3 U#:[id number] AGE/SX: 69/F ROOM: [facility] RE08/09/[address]: Dr. Marcus Champion DO : 1950 BED: 1 DIS: 08/10/2019 SPEC #: [id number] RECD: 08/09/19 15:20 STATUS: KENYON REQ #: [id number] SONNY: 08/09/19 11:[address]: Marcus Champion DEPT: SURGICAL PATHOLOGY RECD BY: David Claire ENTERED: 08/10/19 07:57 SP TYPE: TOTAL KNEE OTHR DR: Dr. Bean Knapp, DO Tissues: Knee, NOS Procedures: Decalcification bone/plaque Surgery Specimen Level IV HEADER OPERATION: ERAS, total knee replacement robotic arm assist PRE-OP DIAGNOSIS: Unilateral primary osteoarthritis left knee TISSUE SUBMITTED: Bone and tissue left knee MICROSCOPIC DIAGNOSIS Bone and soft tissue, left knee, total knee replacement/resection: Pieces of bone with degenerative osteoarthritic changes. Fibroadipose tissue, fibroconnective tissue and reactive synovial tissue. DEEJAY:jana 08/13/19 MICROSCOPIC DESCRIPTION Slides are reviewed. GROSS DESCRIPTION Received is one container designated bone and soft tissue left knee. The specimen consists of multiple fragments of odom-yellow bone measuring in aggregate 13 x 11 x 1.8 cm. Also in the specimen container are multiple fragments of yellow-white soft tissue measuring in aggregate 9 x 6 x 1.5 cm. A number of bony fragments contain articular surfaces consistent with tibial plateau and femoral condyle and displaying prominent osteophyte formation, eburnation, and bone erosion. Adjunct Phlebotomy Instructor sections are submitted in two cassettes as follows: 1 - soft tissue, 2 - bone after decalcification. / AM:jana 08/10/19 TC:5 CPT: 41418, 05690
--- NOTE | 2019-08-09 14:02 | OP.PCM_ITS ---
Report of Operation Date of Procedure: 08/09/19 Pre-Operative Diagnosis: OA left knee Post-Operative Diagnosis: same Surgery/Procedure Performed:: Left TKR architecture consultant: Randall Rome Type of Anesthesia:: Spinal Anesthesiologist: Chauncey Gutierrez - Admhossein VTE Documentation VTE Present on Admission: No VTE Mechan Device Prophylaxis: SCD's, Thigh High FRANCISCO Hose VTE Pharm Prophylaxis ordered?: Yes
[2019-08-09 14:36] LABS: Hemoglobin 11.9 g/dL (12.0-15.0); Mean Corp Hgb Conc 32.2 g/dL (32-36); Mean Corpuscular Volume 90.2 fL (81-99); Mean Platelet Vol. 10.7 fl (6.2-12.0); Platelet Count 167 K/mm3 (150-450); RBC Distribution Width CV 13.9 % (11.6-14.6); RBC Distribution Width SD 46.3 fl (35.1-43.9); White Blood Count 5.3 K/mm3 (4.4-11.0)
[2019-08-09 14:44] LABS: Anion Gap 3 (5-15); BUN 10 mg/dL (7-18); BUN/Creat Ratio 17.2 RATIO (10-20); Calcium,Total 8.4 mg/dL (8.5-10.1); Chloride 113 mmol/L (98-107); Creatinine, Serum 0.58 mg/dL (0.55-1.02); EST Glomerular Filtration Rate 109 mL/min (>60); Est Glom Filt Rate - Afr Amer 132 mL/min (>60); Glucose 135 mg/dL (74-106); Potassium 3.1 mmol/L (3.5-5.1); Sodium Level 144 mmol/L (136-145)
[2019-08-09] MEDS: Lactated Ringers 1,000 ML 75 ML IV (14:54)
[2019-08-09] MEDS: Ondansetron 4 MG/2 ML Vial IV (15:48)
[2019-08-09] MEDS: proMETHazine 25 MG/ML Syringe 12.5 MG IM (16:09)
[2019-08-09] MEDS: 0.9% Saline Lock 10 ML Syringe IV (16:09)
[2019-08-09] MEDS: Senna/Docusate Sodium 1 Tablet 2 TABLET PO (21:42)
[2019-08-10] VITALS: BP 112/70; PULSE 71; RESP 16; TEMP 36.9; O2SAT 96
[2019-08-10 04:15] VITALS: BP 97/56; PULSE 75; RESP 18; TEMP 36.7; O2SAT 97
[2019-08-10] MEDS: Acetaminophen 500 MG Tablet 1000 MG PO ×2 (04:24→14:15)
[2019-08-10 06:12] LABS: Hematocrit 37.2 % (37-47); Mean Corp Hgb Conc 32.3 g/dL (32-36); Mean Corpuscular Hgb 29.3 pg (27.0-32.0); Mean Corpuscular Volume 90.7 fL (81-99); Mean Platelet Vol. 11.1 fl (6.2-12.0); Platelet Count 186 K/mm3 (150-450); RBC Distribution Width CV 14.1 % (11.6-14.6); White Blood Count 7.6 K/mm3 (4.4-11.0)
[2019-08-10 06:35] LABS: Anion Gap 5 (5-15); BUN 11 mg/dL (7-18); BUN/Creat Ratio 16.7 RATIO (10-20); Calcium,Total 8.4 mg/dL (8.5-10.1); Chloride 109 mmol/L (98-107); Creatinine, Serum 0.66 mg/dL (0.55-1.02); EST Glomerular Filtration Rate 95 mL/min (>60); Est Glom Filt Rate - Afr Amer 115 mL/min (>60); Glucose 88 mg/dL (74-106); Potassium 3.9 mmol/L (3.5-5.1); Sodium Level 141 mmol/L (136-145)
--- NOTE | 2019-08-10 07:43 | PN.ORTHO_ITS ---
Subjective: Patient sitting at bedside eating breakfast. Patient denies chest pain, shortness breath, calf pain, nausea vomiting. Patient states pain is well- managed. Patient states she is ready for discharge home. Objective: Dressings clean dry intact. Negative signs and symptoms of DVT. Vital signs labs were reviewed noted in the medical record. Patient is afebrile, neurovascular is otherwise intact. Patient is in no respiratory distress, speaking in full sentences. - Physical Exam Vitals/I&O's: Vital Signs Temp Pulse Resp BP Pulse Ox 98.0 F 75 18 97/56 L 97 08/10/19 04:15 08/10/19 04:15 08/10/19 04:15 08/10/19 04:15 08/10/19 04:15 Oxygen Flow Rate (L/min) 2 Oxygen Delivery Method Room Air Weight: 73.3 kg Body Mass Index (BMI) 27.3 Intake and Output for Last 24 Hours 08/08/19 08/09/19 08/10/19 23:59 23:59 23:59 Intake Total 1500 / 2100 1795.25 / 1795.25 Output Total 200 / 1000 1100 / 1100 Balance 1300 / 1100 695.25 / 695.25 General: Alert, Oriented x3, Cooperative HEENT: PERRLA Oral: Moist Mucosa Neurological: Cranial nerves II-XII grossly intact Psych/Mental Status: Normal Affect, Alert and oriented to time, place, person, mood and affect Laboratory Results 08/09/19 09:59: POC Glucose 78 08/09/19 14:26: WBC 5.3, RBC 4.10 L, Hgb 11.9 L, Hct 37.0, MCV 90.2, MCH 29.0, MCHC 32.2, RDW Std Deviation 46.3 H, RDW Coeff of Richard 13.9, Plt Count 167, MPV 10.7 08/09/19 14:26: Sodium 144, Potassium 3.1 L, Chloride 113 H, Carbon Dioxide 28.0, Anion Gap 3 L, BUN 10, Creatinine 0.58, Estim Creat Clear Calc 46.50, Est GFR (MDRD) Af Amer 132, Est GFR (MDRD) Non-Af 109, BUN/Creatinine Ratio 17.2, Glucose 135 H, Calcium 8.4 L 08/10/19 05:30: WBC 7.6, RBC 4.10 L, Hgb 12.0, Hct 37.2, MCV 90.7, MCH 29.3, MCHC 32.3, RDW Std Deviation 47.0 H, RDW Coeff of Richard 14.1, Plt Count 186, MPV 11.1 08/10/19 05:30: Sodium 141, Potassium 3.9, Chloride 109 H, Carbon Dioxide 27.0, Anion Gap 5, BUN 11, Creatinine 0.66, Estim Creat Clear Calc 46.50, Est GFR (MDRD) Af Amer 115, Est GFR (MDRD) Non-Af 95, BUN/Creatinine Ratio 16.7, Glucose 88, Calcium 8.4 L Current Medications Acetaminophen (Tylenol) 1,000 mg PO Q8 [facility] Last Admin: 08/10/19 04:24 Dose: 1,000 mg Documented by: Aspirin (Aspirin, Baby) [facility] Last Admin: 08/09/19 17:32 Dose: Not Given Documented by: Ergocalciferol (Vitamin D) 50,000 unit PO QWEEK [facility] Sodium Chloride () 250 mls @ 15 mls/hr IV .[id number] PRN PRN Reason: Saline Flush Insulin Human Lispro (Humalog Kwikpen (Bkc)) 1 - 6 unit SC Q4H PRN PRN; Protocol PRN Reason: BG>/= 180, SEE PROTOCOL Nutritional Formula (Lactose Free) (Ensure Enlive) 120 ml PO 4X/DAY [facility] Last Admin: 08/09/19 21:18 Dose: Not Given Documented by: Ondansetron HCl (Zofran) 4 mg IV Q8H PRN PRN PRN Reason: NAUSEA Last Admin: 08/09/19 15:48 Dose: 4 mg Documented by: Oxycodone HCl (Oxyir) 5 - 10 mg PO Q4H PRN PRN PRN Reason: Pain Score 4-10/10 Pantoprazole Sodium (Protonix) 40 mg PO DAILY [facility] Promethazine HCl (Phenergan) 12.5 mg IM Q6H PRN PRN; Protocol PRN Reason: NAUSEA/VOMITING Last Admin: 08/09/19 16:09 Dose: 12.5 mg Documented by: Senna/Docusate Sodium (Senokot-S, Lissy-Colace) 2 tablet PO BID [facility] Last Admin: 08/09/19 21:42 Dose: 2 tablet Documented by: Sodium Chloride () 10 - 40 ml IV UD PRN PRN Reason: SALINE FLUSH Last Admin: 08/09/19 16:09 Dose: 20 ml Documented by: Medical Necessity - Tobacco Use Smoking Status: Former smoker Tobacco Use: Non-smoker Assessment/Plan All Active Problems (Last Reviewed 04/19/19 @ 10:43 by Annabelle Dunbar) History of shingles (Resolved) Shingles (Acute) Otitis externa (Resolved) Status post left total knee arthroplasty Plan 1. Continue all pain medications as prescribed 2. Continue physical therapy, weight-bear as tolerated with walker 3. Aspirin 81 mg 1 p.o. every 12 hours x30 days for postop DVT prophylaxis 4. Encourage incentive spirometry 5. Discharge home today after p.m. therapy 6. Follow-up as scheduled with Dr. Chary Sprague, see pink sheet 7. [facility]
--- NOTE | 2019-08-10 07:49 | DCINST_ITS ---
Discharge Diet: No Restrictions Discharge Activity: May Not Drive, May Shower, Use Walker May shower in (days): 2 Ice area for (Minutes): 20 - each hour while awake. Weight Bearing Status: Weight bearing as tolerated Elevate: Operative Extremity Additional Activity Instructions:: Wear elastic stockings for 2 weeks after your surgery. Call your doctor if your incision/area has: Continuous Slow Oozing, Sudden Increased Bleeding, Increased Pain/ Swelling, Increased Redness, Foul Smelling Discharge Call your doctor if you observe: Fever of 101 or Higher, Coldness, Increased Pain - in extremity, Numbness or Tingling, Change in Color, Calf discomfort, Uncontrolled pain Change Dressing in (Days):: 0 - and daily as needed. Remove Dressing in (days):: 8 Cleanse incision/area with: Soap & Water Allergies/Adverse Reactions: Allergies Sulfa (Sulfonamide Antibiotics) Allergy (Intermediate, Verified 08/09/19 10:06) sores in mouth amoxicillin [From Amoxil] Adverse Reaction (Intermediate, Verified 08/09/19 10:06) yeast & bladder infections Medications to take at Discharge diclofenac sodium 1 % topical gel 4 g TOPICAL .QID PRN g 02/19/19 Ergocalciferol (Vitamin D2) [Drisdol] 50,000 unit PO QWEEK 07/23/19 Esomeprazole Magnesium 40 mg PO QDAY 07/23/19 Acetaminophen [Tylenol] 1,000 mg PO Q8 #90 tab 08/10/19 Aspirin [Aspirin, Baby] 81 mg PO BIDCM #60 tab.chew 08/10/19 The following prescriptions were given: Aspirin [Aspirin, Baby] 81 mg PO BIDCM #60 tab.chew Transmission Status: [id number] Acetaminophen [Tylenol] 1,000 mg PO Q8 #90 tab Transmission Status: [id number] Primary Care Physician: Bean Knapp DO [Primary Care Provider] - Test Results: Test results from this visit will be discussed in further detail at your follow- up appointment, if applicable. Please Follow Up With: Marcus Champion DO When: see pink sheet
[2019-08-10 08:15] VITALS: BP 91/60; PULSE 82; RESP 14; TEMP 36.6; O2SAT 96
[2019-08-10] MEDS: traMADol 50 MG Tablet PO (08:36)
[2019-08-10] MEDS: Pantoprazole Sodium 40 MG Tablet PO (08:37)
[2019-08-10] MEDS: Senna/Docusate Sodium 1 Tablet 2 TABLET PO (08:37)
[2019-08-10] MEDS: Aspirin 81 MG TAB.CHEW PO (08:37)
[2019-08-10 09:02] VITALS: O2SAT 96
--- NOTE | 2019-08-10 10:05 | CASEMGMT ---
ERROL KASPER Face to Face with patient for initial transition planning/care coordination assessment. ERROL KASPER introduced self and role at [facility]. Patient sitting in chair, alert and oriented, son at bedside. Patient willing to participate in assessment and is able to answer all questions appropriately. Care providers, pharmacy, and demographics verified. Patient wishes to discharge home, and is setup with [facility] for outpatient therapy. Patient states he has no further needs or concerns at this time. CM to follow for discharge planning needs that may arise. PCP: Ra Specialists: Tanya Champion Cardiology Preferred Pharmacy: [facility] Insurance: [facility] Prescription Benefit: Yes Living Will/HPOA: Yes, Greg Ascencio LNOK: , son Living Arrangements: Patient lives with in a Condo with 1 step to enter the home. Patient is independent at home. Transportation: DME/HHC: Patient has shower chair, raised toilet, cane, walker, scooter, wc at home. Patient is setup for outpatient therapy at [facility]. ERROL KASPER instructed patient that should outpatient therapy be cancelled, to follow up with Dr. Champion. Disposition Plan: Patient to discharge home with outpatient therapy, family support, and follow-up plans in place. Vera GUERRERO, RN, CM
[2019-08-10] MEDS: oxyCODONE 5 MG Tablet PO (11:42)
== END 2019-08-10 14:36 | disposition home or self-care (01) ==
LOC: SDC 08-10 07:20 → MS3 08-10 07:20
PROVIDERS: Admitting Provider Orthopaedic Surgery; PCP Family Medicine; Referring Provider Orthopaedic Surgery; Visit Provider Orthopaedic Surgery
PROC: 0SRD0JZ Replacement of Left Knee Joint with Synthetic Substitute, Open Approach (ICD-10-PCS; CPT 27447; principal; 2019-08-09 11:10)
DX: M17.12 Unilateral primary osteoarthritis, left knee (principal); M21.162 Varus deformity, not elsewhere classified, left knee; Z87.891 Personal history of nicotine dependence; Z79.899 Other long term (current) drug therapy; Z85.118 Personal history of other malignant neoplasm of bronchus and lung; K21.9 Gastro-esophageal reflux disease without esophagitis; K44.9 Diaphragmatic hernia without obstruction or gangrene
CPT/HCPCS: 01400; 27447; 64447; S2900; 36415; 73560; 80048; 82962; 85025; 85027; 87077; 87081; 88305; 88311; 93005; 96361; 96365; 96366; 96372; 96375; 97110; 97162; 97166; 97530; 97535; 99218; 99251; C1776; J7120; A4216; G0378; G0379; G0463; J2405

== ENCOUNTER → 2019-08-13 | Outpatient (CLI) | payer MEDICARE, OTHER, SELFPAY ==
[2019-08-09 15:32] VITALS: BMI 27.3
[2019-08-13 15:31] LABS: Mucous, Urine 0 SEEN /hpf (<or=2+)
[2019-08-13 16:47] LABS: Color, Urine Yellow (Yellow); Glucose, Dipstick Normal (Normal); Ketone-Dipstick 5 mg/dl (Negative); Leukocyte Esterase-Dipstick 100 /ul (Negative); Nitrite-Dipstick Positive (Negative); Occult Blood-Urine 25 /ul (Negative); Protein-Dipstick 15 mg/dl (Negative); Urine Bilirubin Dipstick Negative (Negative); Urine Clarity Cloudy (Clear); Urine Urobilinogen 1 mg/dl (Normal)
[2019-08-13 16:53] LABS: Bacteria 1+ /hpf (None Seen); Hyaline Cast 0-5 SEEN /lpf (0-5); Red Blood Cells-Urine 0-5 SEEN /hpf (0-5); Squamous Epithelial Cells - UA 0-5 SEEN /hpf (5-10); White Blood Cells 10-25 SEEN /hpf (0-5)
[2019-08-13 16:54] LABS: Amorphous Sediment 1+ PHOS
== END | disposition home or self-care (01) ==
LOC: LABSPEC 15:25
PROVIDERS: PCP Family Medicine; Referring Provider Nurse Practitioner Family; Visit Provider Nurse Practitioner Family
DX: N39.0 Urinary tract infection, site not specified (principal)
CPT/HCPCS: 81001; 87086; 87088; 87186

== ENCOUNTER → 2019-09-02 08:57 | Outpatient (CLI) | payer MEDICARE, OTHER, SELFPAY ==
[2019-08-09 15:32] VITALS: BMI 27.3
--- NOTE | 2019-09-02 09:02 | VDLE_ITS ---
Reason For Study: Pain LLE Procedure LEFT Exam performed in department. GSV is normal. A preliminary report was called and/or faxed CFV is compressible, spontaneous, phasic, to Akira. competent, and demonstrates normal augmentation. FV is compressible, spontaneous, phasic, competent and demonstrates normal augmentation. POP V is compressible, spontaneous, phasic, competent and demonstrates normal augmentation. T/P Trunk is compressible. PTV is compressible. LT PerV is compressible. Nonvascularized structure noted in the left popliteal space measuring approximently 0.83 x 1.92 x 3.29 cm. Interpretation Summary Deep veins of the left lower extremity are patent and compressible segmentally. There is no evidence of left lower extremity deep vein thrombosis. Valvular competence appears intact within the proximal deep venous system on the left . The left great saphenous vein appears patent and compressible segmentally. A non-vascular, hypoechoic structure is noted in the left popliteal space, measuring 0.83 cm x 1.92 cm x 3.29 cm. This probably represents a popliteal cyst. Clinical correlation is advised. Ordering Physician: Marcus Champion Referring Physician: Kaz Knapp M.D. Performed By: Vera Cruz RVT
== END ==
PROVIDERS: PCP Family Medicine; Referring Provider Orthopaedic Surgery; Visit Provider Orthopaedic Surgery
DX: M79.662 Pain in left lower leg (principal)
CPT/HCPCS: 93971

== ENCOUNTER → 2019-09-08 16:19 | Outpatient (CLI) | payer MEDICARE, OTHER, SELFPAY ==
[2019-08-09 15:32] VITALS: BMI 27.3
[2019-09-08 18:49] LABS: CRP < 2.90 mg/L (0.0-3.0)
[2019-09-08 19:07] LABS: Absolute Lymphocyte Count 0.87 X10^3/uL (0.83-4.51); Absolute Neutrophil Count 5.4 X10^3/uL (2.0-7.7); Basophil# 0.01 X10^3/uL; Basophil% 0.2 % (0-1); Hematocrit 41.2 % (37-47); Lymphocyte # 0.87 X10^3/ul (4.0); Lymphocyte % 13.3 % (19-41); Mean Corp Hgb Conc 31.6 g/dL (32-36); Mean Corpuscular Hgb 29.3 pg (27.0-32.0); Mean Corpuscular Volume 92.8 fL (81-99); Mean Platelet Vol. 11.2 fl (6.2-12.0); Monocyte% 3.1 % (0-10); NRBC Flagged by Analyzer 0 % (0-5); Neutrophil # 5.42 X10^3/uL (2.7-7.7); Neutrophil % 82.9 % (47-70); Platelet Count 219 K/mm3 (150-450); RBC Distribution Width CV 14.4 % (11.6-14.6); RBC Distribution Width SD 49.1 fl (35.1-43.9); Red Blood Count 4.44 M/mm3 (4.2-5.4); White Blood Count 6.5 K/mm3 (4.4-11.0)
[2019-09-08 19:13] LABS: Erythrocyte Sedimentation Rate 10 mm/hr (0-30)
== END ==
PROVIDERS: PCP Family Medicine; Referring Provider Physician Assistant Surgical; Visit Provider Physician Assistant Surgical
DX: Z96.652 Presence of left artificial knee joint (principal)
CPT/HCPCS: 36415; 85025; 85652; 86140

== ENCOUNTER 2019-09-30 12:00 | Outpatient (RCR) | payer MEDICARE, OTHER, SELFPAY ==
[2019-05-07 08:11] VITALS: BMI 26.9
[2019-08-09 15:32] VITALS: BMI 27.3
--- NOTE | 2019-08-11 15:53 | HP.PTEVAL_ITS ---
Patient's Visit Information DANISHA DEVINE is a 69 year old F referred to Physical Therapy by Randall Rome PA-C with a diagnosis of L TKA. Date of Evaluation: 08/11/19 Physical Therapist: Willam Salmeron PT, ATC - Visit Plan Frequency: 2-3x /Week Duration: 4-6 Weeks Plan: L knee PROM/mobs, stretching and strengthening, balance and proprio, bike, and HEP - Subjective Subjective: DOS: 08/09/19. Pt had a L TKA performed. Pt reports she had pain in her L knee for a couple years. Pt notes her pain became so bad that she was unable to perform her IADL's any more. Pt reports she is in a lot of pain today. pt notes she also has a lot of drainage in her L knee and reports I have been bleeding everywhere. Pt reports no tingling or numbness in L LE. Pt reports sleep difficulty secondary to pain. Pt reports she has been icing and resting. Pt reports she has stairs at home and ngegotiates them one step at a time. 3/10 at rest, 10/10 with walking. - Pain L knee Pain Intensity (Out of 10): 3 Pain Intensity Range: 10 - Objective Neuro: B LE sensation is WNL to light touch. ROM: R knee 0-125 degrees; L knee 15-62 degrees. MMT: L knee 3/5 throughout. R knee 5/5 throughout. Girth at joint line: R knee 36 cm, L knee 43 cm. Gait: Pt ambulates with use of step too pattern, ww - Goals Goal 1:: Decrease L knee pain x 50% to aid with sleep Goal Time Frame: 4-6 Weeks Goal 2:: Increase L knee ROM x 40 degrees to aid with IADL's Goal Time Frame: 4-6 Weeks Goal 3:: Increase L knee strength x 1 grade to aid with stair negotiation Goal Time Frame: 4-6 Weeks Goal 4:: I with HEP Goal Time Frame: 4-6 Weeks - Rehabilitation Potential Physical Therapy Diagnosis: L knee pain, weakness, and limited ROM secondary to L TKA Rehabilitation Potential: Good - Anticipated Interventions Patient/Client Instruction: Educate patient on: Condition, Plan of Care For the Purpose of:: To improve self management Therapeutic Exercise to Include: Strength training, Endurance training, Balance training, Flexibilty training, Gait and locomotor training, Passive ROM, Active ROM, Dynamic Lumbar Stabilization For the Purpose of:: To decrease pain, To increase ROM, To improve muscle performance and motor function For the Purpose of:: To decrease pain Thank you for the opportunity to evaluate your patient. For Medicare and Medicare HMO plans, please review the plan of care and approve it. It will need to be FAXED BACK to us at [phone] for Medicare purposes. For Medicare only, by signing this I certify the plan of care. Please let me know if there are questions or concerns regarding this plan of care. Physician Signature: Date :
--- NOTE | 2019-09-13 18:02 | HP.PTREVAL_ITS ---
Randall Rome PA-C, It has been my pleasure to treat DANISHA DEVINE over the last 10 visits for L TKA. Please see the progress note below for an update on the physical therapy plan of care! Subjective: Pt reports her pain is still present in L posterior knee Objective/Function: L knee pain ranges 2-8/10 (prolonged walking). R knee MMT: knee flex= 3+/5, ext 5/5. R knee ROM: 0-10-110. Pt isporgressing well toward Rx goals Plan Plan: Cont as bettie Goals Goal 1:: Decrease L knee pain x 50% to aid with sleep Goal Time Frame: 4-6 Weeks Goal Progress: Progressing Goal 2:: Increase L knee ROM x 40 degrees to aid with IADL's Goal Time Frame: 4-6 Weeks Goal Progress: Progressing Goal 3:: Increase L knee strength x 1 grade to aid with stair negotiation Goal Time Frame: 4-6 Weeks Goal Progress: Progressing Goal 4:: I with HEP Goal Time Frame: 4-6 Weeks Goal Progress: Progressing Anticipated Interventions Patient/Client Instruction: Educate patient on: Condition, Plan of Care For the Purpose of:: To improve self management Therapeutic Exercise to Include: Strength training, Endurance training, Balance training, Flexibilty training, Gait and locomotor training, Passive ROM, Active ROM, Dynamic Lumbar Stabilization For the Purpose of:: To decrease pain, To increase ROM, To improve muscle performance and motor function For the Purpose of:: To decrease pain Please do not hesitate to contact me at [phone] by phone or Fax: if you have questions or concerns regarding this new plan of care! Sincerely, Willam Salmeron, PT, ATC
--- NOTE | 2019-09-30 12:50 | HP.PTREVAL ---
Randall Rome PA-C, It has been my pleasure to treat DANISHA DEVINE over the last 13 visits for L TKA. Please see the progress note below for an update on the physical therapy plan of care! Subjective: Pt. reports I have been doing a lot better. Pt. reports her pain in the back of her knee is improving, but she still feels it at times. Pt. reports she is back to line dancing in home, I just don't do the really hard stuff. She is stretching at home and doing her exercises. pt. reports being 75% better overall. She is back to walking several blocks at a time, but does report some soreness after walking. Objective/Function: ROM: L knee PROM: 0-0-120deg. Pt. has increased soreness with TKE and end range flexion. AROM 0-1-117deg. same soreness at end ranges. MMT: Pt. has 4+/5 strength throughout L knee and hip. GAIT: Pt. has good gait pattern, non antalgic. Pt. has good TKE in stance and good knee flexion during swing phase. STAIRS: Pt. is able to negotiate steps without HR with reciprocal pattern and no pain. No compensation noted with descending steps either. Plan Plan: Pt. is to continue with HEP and walking program on her own at this point in time. Pt. desires to continue on her own. Pt. is going to follow up with physician next week. I will leave her case open in case physician wants her or she desires to return at later date. If I do not hear from her in 3 weeks I will DC case back to physician. Goals Goal 1:: Decrease L knee pain x 50% to aid with sleep Goal Time Frame: 2-4 Weeks Goal Progress: Goal Met Goal 2:: Increase L knee ROM x 40 degrees to aid with IADL's Goal Time Frame: 4-6 Weeks Goal Progress: Goal Met Goal 3:: Increase L knee strength x 1 grade to aid with stair negotiation Goal Time Frame: 4-6 Weeks Goal Progress: Goal Met Goal 4:: I with HEP Goal Time Frame: 4-6 Weeks Goal Progress: Goal Met Anticipated Interventions Patient/Client Instruction: Educate patient on: Condition, Plan of Care For the Purpose of:: To improve self management Therapeutic Exercise to Include: Strength training, Endurance training, Balance training, Flexibilty training, Gait and locomotor training, Passive ROM, Active ROM, Dynamic Lumbar Stabilization For the Purpose of:: To decrease pain, To increase ROM, To improve muscle performance and motor function For the Purpose of:: To decrease pain Please do not hesitate to contact me at [phone] by phone or if you have questions or concerns regarding this new plan of care! Sincerely, SALOMÓN RamirezT
--- NOTE | 2019-11-19 12:33 | HP.PTDCNRP_ITS ---
DANISHA DEVINE was seen in my office for initial evaluation on 08/11/19. The following Plan of Care was established for this patient: Initial Frequency: 2-3x /Week Initial Duration: 4-6 Weeks Patient/Client Instruction: Educate patient on: Condition, Plan of Care For the Purpose of:: To improve self management Therapeutic Exercise to Include: Strength training, Endurance training, Balance training, Flexibilty training, Gait and locomotor training, Passive ROM, Active ROM, Dynamic Lumbar Stabilization For the Purpose of:: To decrease pain, To increase ROM, To improve muscle performance and motor function For the Purpose of:: To decrease pain This patient was last seen in our office . Pertinent comments regarding their Physical therapy will appear below: Pt was treated for 13 PT visits for L TKA through September 30, 2019. Pt has not returned through todays date and is discontinued at this time. At this point I will be discontinuing this patient from physical therapy. I w ould be happy to see this patient again in the future if found appropriate by the physician. Thank you! Willam Salmeron, PT, ATC
== END 2019-09-30 19:00 | disposition home or self-care (01) ==
LOC: PT 12:00
PROVIDERS: PCP Family Medicine; Referring Provider Physician Assistant; Visit Provider Physician Assistant
DX: M17.12 Unilateral primary osteoarthritis, left knee (principal)
CPT/HCPCS: 97035; 97110; 97140; 97161; 97164

== ENCOUNTER → 2019-12-05 | Outpatient (CLI) | payer MEDICARE, OTHER, SELFPAY ==
[2019-12-03 10:56] VITALS: BMI 27.3
== END | disposition home or self-care (01) ==
LOC: MTDU 10:18
PROVIDERS: PCP Family Medicine; Visit Provider Physician Assistant Surgical
DX: Z20.828 Contact with and (suspected) exposure to other viral communicable diseases (principal)
CPT/HCPCS: 87635; G2023; U0003

== ENCOUNTER → 2019-12-13 | Outpatient (CLI) | payer MEDICARE, OTHER, SELFPAY ==
[2019-12-12 11:35] VITALS: BMI 27.3
[2019-12-13 15:52] LABS: Mucous, Urine 0 SEEN /hpf (<or=2+); Squamous Epithelial Cells - UA 0 SEEN /hpf (5-10)
[2019-12-13 16:20] LABS: Color, Urine Straw (Yellow); Glucose, Dipstick Normal (Normal); Ketone-Dipstick Negative (Negative); Leukocyte Esterase-Dipstick 500 /ul (Negative); Nitrite-Dipstick Negative (Negative); Occult Blood-Urine 250 /ul (Negative); Protein-Dipstick 30 mg/dl (Negative); Specific Gravity, Urine 1.025 (1.002-1.030); Urine Bilirubin Dipstick Negative (Negative); Urine Clarity Cloudy (Clear); Urine Urobilinogen Normal (Normal)
[2019-12-13 16:55] LABS: Amorphous Sediment 2+; White Blood Cells 25-50 SEEN /hpf (0-5)
[2019-12-13 16:56] LABS: Bacteria RARE /hpf (None Seen); Red Blood Cells-Urine 0-5 SEEN /hpf (0-5)
== END | disposition home or self-care (01) ==
LOC: LABSPEC 10:16
PROVIDERS: PCP Family Medicine; Referring Provider Physician Assistant Surgical; Visit Provider Physician Assistant Surgical
DX: N39.0 Urinary tract infection, site not specified (principal); R35.0 Frequency of micturition; R31.9 Hematuria, unspecified
CPT/HCPCS: 81001; 87086; 87088; 87186

== ENCOUNTER → 2020-01-14 | Outpatient (CLI) | payer MEDICARE, OTHER, SELFPAY ==
[2019-12-16 13:09] VITALS: BMI 27.3
--- NOTE | 2020-01-14 09:20 | BI_ITS ---
MAMMOGRAPHY - BILATERAL SCREENING REASON FOR EXAM: Female, 69 years old. Routine annual screening examination. PERTINENT HISTORY: Non-contributory. TECHNIQUE: Digital bilateral breast lisa (3D mammographic acquisition) in the CC and MLO projections. 2-D mediolateral oblique (MLO) and craniocaudad (CC) views of both breasts were obtained. CAD: Full Field Digital Mammography with Computer Added Detection was performed. COMPARISON: Jul 15 2018 3:34pm FINDINGS: Breast Composition: There are scattered areas of fibroglandular density. There are no dominant masses or suspicious calcifications. No other significant abnormalities are identified. BI/SCREEN MAMM (CAD) W/LISA BILAT IMPRESSION: Stable bilateral screening mammogram. Yearly follow-up mammogram recommended. (A) ASSESSMENT CATEGORY: BIRADS Category 2: Benign. A letter regarding these results will be sent to the patient by the facility within 30 days. Approximately 10% of breast cancers are not detected by mammography. A normal mammogram should not delay biopsy of a clinically suspicious abnormality. [id number] Electronically Signed: Dante Nolen, at 10:52 EDT Tel , Service support ,
== END | disposition home or self-care (01) ==
LOC: OPBI 09:20
PROVIDERS: PCP Family Medicine; Referring Provider Family Medicine; Visit Provider Family Medicine
DX: Z12.31 Encounter for screening mammogram for malignant neoplasm of breast (principal)
CPT/HCPCS: 77063; 77067

== ENCOUNTER → 2020-02-01 | Outpatient (CLI) | payer MEDICARE, OTHER, SELFPAY ==
[2020-01-31 10:59] VITALS: BMI 27.3
[2020-02-01 12:56] LABS: Color, Urine Yellow (Yellow); Glucose, Dipstick Normal (Normal); Ketone-Dipstick Negative (Negative); Leukocyte Esterase-Dipstick 500 /ul (Negative); Nitrite-Dipstick Positive (Negative); Occult Blood-Urine 250 /ul (Negative); Protein-Dipstick 30 mg/dl (Negative); Urine Bilirubin Dipstick Negative (Negative); Urine Clarity Sl. Cloudy (Clear); Urine Urobilinogen Normal (Normal)
== END | disposition home or self-care (01) ==
LOC: LABSPEC 11:24
PROVIDERS: PCP Family Medicine; Referring Provider Physician Assistant Surgical; Visit Provider Physician Assistant Surgical
DX: N30.01 Acute cystitis with hematuria (principal)
CPT/HCPCS: 81002; 87077; 87086; 87088; 87186

== ENCOUNTER → 2020-02-16 | Outpatient (CLI) | payer MEDICARE, OTHER, SELFPAY ==
[2020-01-31 10:59] VITALS: BMI 27.3
--- NOTE | 2020-02-16 08:58 | US_ITS ---
STUDY: RENAL ULTRASOUND - COMPLETE REASON FOR EXAM: Female, 69 years old. Kidneys/uti TECHNIQUE: Ultrasound evaluation of the kidneys was performed with real-time and static vincent-scale imaging. COMPARISON: None. FINDINGS: RIGHT KIDNEY: Normal location of the right kidney, which is normal in size. The right kidney measures 11.2 cm x 4.9 cm x 5.0 cm. There is a normal cortex of the right kidney. The renal cortex measures 1.3 cm. There is no right renal mass or cyst. There are no right renal calculi. There is no right hydronephrosis. DISTAL RIGHT URETER: There is non-visualization of the distal right ureter. There is no demonstrated right ureterovesical junction calculus. There is a visualized right ureteral jet. LEFT KIDNEY: Normal location of the left kidney, which is normal in size. The left kidney measures 11.5 cm x 4.9 cm x 6.2 cm. There is a normal cortex of the left kidney. The renal cortex measures 1.3 cm. There is no left renal mass or cyst. There are no left renal calculi. There is no left hydronephrosis. DISTAL LEFT URETER: There is non-visualization of the distal left ureter. There is no demonstrated left ureterovesical junction calculus. There is a visualized left ureteral jet. BLADDER: The distended urinary bladder has a volume of 107 ml. The empty urinary bladder has a volume of 64 ml. There is a normal wall thickness of the distended urinary bladder. There is no demonstrated mass within the urinary bladder. There are no demonstrated bladder calculi. US/Kidney and Bladder IMPRESSION: Normal ultrasound of the kidneys. Moderate postvoid residual. Electronically Signed: Eliseo Amaya, at 14:46 EDT , Service support ,
== END | disposition home or self-care (01) ==
LOC: US 08:53
PROVIDERS: PCP Family Medicine; Referring Provider Urology; Visit Provider Urology
DX: N20.0 Calculus of kidney (principal); N39.0 Urinary tract infection, site not specified
CPT/HCPCS: 76770

== ENCOUNTER → 2020-03-01 | Outpatient (CLI) | payer MEDICARE, OTHER, SELFPAY ==
[2020-03-01 10:46] VITALS: BMI 27.3
== END | disposition home or self-care (01) ==
LOC: MTDU 17:19
PROVIDERS: PCP Family Medicine; Referring Provider Physician Assistant; Visit Provider Physician Assistant
DX: J02.9 Acute pharyngitis, unspecified (principal); R05 Cough; R68.83 Chills (without fever); Z20.828 Contact with and (suspected) exposure to other viral communicable diseases
CPT/HCPCS: 87635; C9803; U0003

== ENCOUNTER → 2020-04-02 11:44 | Outpatient (CLI) | payer MEDICARE, OTHER, SELFPAY ==
[2020-03-01 10:46] VITALS: BMI 27.3
--- NOTE | 2020-04-02 11:48 | RAD_ITS ---
STUDY: X-RAY CHEST REASON FOR EXAM: Female, 69 years old. 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 COMPARISON: 04/19/2019 FINDINGS: The lungs are clear and expanded. There is no demonstrated pleural abnormality. Normal size heart. Normal mediastinum and krishna. Normal visualized pulmonary arteries. Normal visualized aortic arch and descending thoracic aorta. Normal visualized thoracic spine. Normal visualized ribs, clavicles, and shoulders. There is no demonstrated abnormality of the visualized soft tissue structures of the upper abdomen. RAD/Chest PA and Lateral IMPRESSION: Normal x-ray examination of the chest. Electronically Signed: Jose Alfredo Wong MD at 12:49 EST Tel , Service support ,
== END ==
PROVIDERS: PCP Family Medicine; Visit Provider Nurse Practitioner Family
DX: R05 Cough (principal); R06.02 Shortness of breath
CPT/HCPCS: 71046

== ENCOUNTER → 2020-04-03 09:20 | Outpatient (CLI) | payer MEDICARE, OTHER, SELFPAY ==
[2020-03-01 10:46] VITALS: BMI 27.3
== END ==
PROVIDERS: PCP Family Medicine; Referring Provider Nurse Practitioner Family; Visit Provider Nurse Practitioner Family
DX: R05 Cough (principal); R06.02 Shortness of breath
CPT/HCPCS: 87635; C9803; U0003

== ENCOUNTER → 2020-06-01 | Outpatient (CLI) | payer MEDICARE, OTHER, SELFPAY ==
[2020-03-01 10:46] VITALS: BMI 27.3
== END | disposition home or self-care (01) ==
LOC: LABSPEC 18:11
PROVIDERS: PCP Family Medicine; Visit Provider Physician Assistant
DX: R05 Cough (principal)
CPT/HCPCS: 87635; U0005; U0003

== ENCOUNTER → 2020-06-07 15:32 | Outpatient (CLI) | payer MEDICARE, OTHER, SELFPAY ==
[2020-03-01 10:46] VITALS: BMI 27.3
[2020-06-07 18:31] LABS: Anion Gap 6 (5-15); BUN 18 mg/dL (7-18); BUN/Creat Ratio 23.7 RATIO (10-20); Calcium,Total 8.6 mg/dL (8.5-10.1); Chloride 109 mmol/L (98-107); Cholesterol 172 mg/dL (200); Creatinine, Serum 0.76 mg/dL (0.55-1.02); EST Glomerular Filtration Rate 80 mL/min (>60); Est Glom Filt Rate - Afr Amer 97 mL/min (>60); Glucose 105 mg/dL (74-106); High Density Lipoprotein 67 mg/dL; Potassium 3.8 mmol/L (3.5-5.1); Sodium Level 140 mmol/L (136-145); Triglycerides 157 mg/dL; Very Low Density Lipoprotein 31 mg/dL (5-40)
== END ==
PROVIDERS: PCP Family Medicine; Visit Provider Family Medicine
DX: E78.5 Hyperlipidemia, unspecified (principal); Z85.118 Personal history of other malignant neoplasm of bronchus and lung
CPT/HCPCS: 36415; 80048; 80061

== ENCOUNTER → 2020-06-14 15:06 | Outpatient (CLI) | payer MEDICARE, OTHER, SELFPAY ==
[2020-03-01 10:46] VITALS: BMI 27.3
--- NOTE | 2020-06-14 15:09 | CT_ITS ---
STUDY: CT CHEST WITH CONTRAST REASON FOR EXAM: Female, 70 years old. H/O LUNG CA. SOB W/ EXERTION X YEARS. RADIATION DOSAGE (If Supplied By Facility): CTDIvol = ( 12.21 ) mGy, DLP = ( 329.99 ) mGycm TECHNIQUE: Transaxial imaging was performed following intravenous administration of IV 100mL Isovue-300. Multiplanar coronal and sagittal images were reformatted. Individualized dose optimization techniques were used for this CT. COMPARISON: Comparison is made with prior examination dated 06/08/2018. FINDINGS: The patient is status post left upper lobectomy. Stable postsurgical changes are seen with evidence of volume loss and scarring. This is unchanged. There is no demonstrated pleural abnormality. There are calcifications of the coronary arteries. Normal mediastinum. Surgical clips are seen in the left hilar region. Normal enhanced pulmonary arteries. Normal aorta arch and descending thoracic aorta. There are multi-level degenerative changes of the thoracic spine. Moderate sized hiatal hernia. CT/Chest WITH Contrast IMPRESSION: Stable examination. Status post left upper lobectomy with resultant postoperative changes. Stable moderate-sized hiatal hernia. Electronically Signed: Eliseo Amaya MD at 15:32 EST , Service support ,
== END ==
PROVIDERS: PCP Family Medicine; Referring Provider Family Medicine; Visit Provider Family Medicine
DX: Z85.118 Personal history of other malignant neoplasm of bronchus and lung (principal)
CPT/HCPCS: 71260; Q9967; A4216

== ENCOUNTER → 2020-09-01 15:40 | Outpatient (CLI) | payer MEDICARE, OTHER, SELFPAY ==
[2020-09-01 15:32] VITALS: BMI 28.8
--- NOTE | 2020-09-01 15:42 | RAD_ITS ---
STUDY: X-RAY - LEFT WRIST REASON FOR EXAM: Female, 70 years old. Left wrist pain TECHNIQUE: 3 view(s) of the wrist were obtained. COMPARISON: None. FINDINGS: Normal visualized distal radius and ulna. Normal radiocarpal articulation. Normal distal radioulnar articulation. Normal carpal bones. Normal carpal articulations. Normal carpometacarpal articulation of the thumb. Normal second through fifth carpometacarpal articulations. Normal visualized metacarpal bones. The soft tissue structures are unremarkable. RAD/Wrist min 3 Views IMPRESSION: Normal x-ray examination of the wrist. Electronically Signed: Erik Avery MD at 16:07 EDT , Service support ,
== END ==
PROVIDERS: PCP Family Medicine; Referring Provider Physician Assistant Surgical; Visit Provider Physician Assistant Surgical
DX: S66.912A Strain of unspecified muscle, fascia and tendon at wrist and hand level, left hand, initial encounter (principal)
CPT/HCPCS: 73110

== ENCOUNTER 2020-09-18 14:22 | Emergency (ER) | payer MEDICARE, OTHER, SELFPAY ==
[2020-09-01 15:32] VITALS: BMI 28.8
[2020-09-18 14:23] VITALS: BP 117/66; PULSE 66; RESP 14; TEMP 36.4; O2SAT 98; BMI 30.2
--- NOTE | 2020-09-18 15:12 | CT_ITS ---
INDICATION: Kidney Stone EXAMINATION: CT Abdomen And Pelvis W/O Contrast Injection TECHNIQUE: Helically acquired images were obtained of the abdomen and pelvis without the use of IV contrast. A radiation dose optimization technique was used for this scan. Oral contrast: None. COMPARISON: None FINDINGS: Evaluation of the solid organs and vascular structures is limited without intravenous contrast. Visualized lung bases: Left basilar atelectasis. Liver: Unremarkable Gallbladder: Unremarkable Spleen: Unremarkable Pancreas: Fatty atrophic changes. Adrenal Glands: Unremarkable Kidneys: Scattered too small to characterize subcentimeter hypodensities bilaterally. There is moderate right hydroureteronephrosis with a punctate 1 mm stone in the right ureterovesical junction. Vasculature: Mild scattered aortoiliac atherosclerotic calcifications. GI Tract: Large hiatal hernia. Lymphadenopathy: None Peritoneum: No ascites. Bladder: Unremarkable Reproductive organs: Unremarkable Bones/Soft tissues: Moderate scattered degenerative changes of the visualized spine. CT/Abdomen/Pelvis without Cont IMPRESSION: Moderate right hydroureteronephrosis with a punctate 1 mm stone in the right ureterovesical junction. Hiatal hernia. Electronically Signed: Chilo Shaver MD at 16:52 EDT Tel , Service support ,
[2020-09-18] MEDS: Morphine 4 MG/ML Syringe IV ×2 (15:24→15:41)
[2020-09-18 15:25] LABS: Absolute Lymphocyte Count 1.85 X10^3/uL (0.83-4.51); Absolute Neutrophil Count 3.7 X10^3/uL (2.0-7.7); Basophil# 0.03 X10^3/uL; Basophil% 0.5 % (0-1); Eosinophil# 0.04 X10^3/uL; Eosinophils% 0.7 % (0-5); Hematocrit 42.1 % (37-47); Hemoglobin 13.5 g/dL (12.0-15.0); Lymphocyte # 1.85 X10^3/ul (0.83-4.51); Lymphocyte % 31.3 % (19-41); Mean Corp Hgb Conc 32.1 g/dL (32-36); Mean Corpuscular Hgb 29.2 pg (27.0-32.0); Mean Corpuscular Volume 91.1 fL (81-99); Monocyte# 0.27 X10^3/uL; Monocyte% 4.6 % (0-10); NRBC Flagged by Analyzer 0 % (0-5); Neutrophil # 3.71 X10^3/uL (2.7-7.7); Neutrophil % 62.6 % (47-70); Platelet Count 210 K/mm3 (150-450); RBC Distribution Width CV 13.4 % (11.6-14.6); RBC Distribution Width SD 45.5 fl (35.1-43.9); Red Blood Count 4.62 M/mm3 (4.2-5.4); White Blood Count 5.9 K/mm3 (4.4-11.0)
[2020-09-18] MEDS: Ondansetron 4 MG/2 ML Vial IV ×2 (15:25→18:13)
[2020-09-18] MEDS: Ketorolac 15 MG/ML Vial IV (15:25)
[2020-09-18] MEDS: 0.9% Normal Saline 1,000 ML 250 ML IV (15:25)
[2020-09-18 15:35] LABS: Anion Gap 5 (5-15); BUN 17 mg/dL (7-18); BUN/Creat Ratio 20.2 RATIO (10-20); Calcium,Total 8.9 mg/dL (8.5-10.1); Chloride 109 mmol/L (98-107); Creatinine, Serum 0.84 mg/dL (0.55-1.02); EST Glomerular Filtration Rate 71 mL/min (>60); Est Glom Filt Rate - Afr Amer 86 mL/min (>60); Estimated Creatinine Clearance 54.58 ml/min; Glucose 131 mg/dL (74-106); Potassium 3.7 mmol/L (3.5-5.1); Sodium Level 144 mmol/L (136-145)
[2020-09-18 16:17] VITALS: BP 122/63; PULSE 71; RESP 20; O2SAT 99
[2020-09-18 16:28] LABS: Bacteria 0 SEEN /hpf (None Seen); Mucous, Urine 0 SEEN /hpf (<or=2+); Squamous Epithelial Cells - UA 0 SEEN /hpf (5-10); White Blood Cells 0 SEEN /hpf (0-5)
[2020-09-18] MEDS: HYDROmorphone 0.5 MG/0.5 ML SYRINGE IV ×2 (16:31→16:51)
[2020-09-18 16:41] LABS: Color, Urine Yellow (Yellow); Glucose, Dipstick Normal (Normal); Ketone-Dipstick 5 mg/dl (Negative); Leukocyte Esterase-Dipstick 25 /ul (Negative); Nitrite-Dipstick Negative (Negative); Occult Blood-Urine 10 /ul (Negative); Protein-Dipstick Negative (Negative); Specific Gravity, Urine 1.015 (1.002-1.030); Urine Bilirubin Dipstick Negative (Negative); Urine Clarity Clear (Clear); Urine Urobilinogen Normal (Normal)
[2020-09-18 16:52] VITALS: BP 131/90; PULSE 68; RESP 18; O2SAT 99
[2020-09-18 17:26] VITALS: BP 135/84; PULSE 76; RESP 16; O2SAT 93
[2020-09-18 17:40] LABS: Red Blood Cells-Urine 0-5 SEEN /hpf (0-5)
--- NOTE | 2020-09-18 17:54 | ED.VISSUMM ---
- ER Visit Summary Date of Service: 09/18/20 Chief Complaint: Right flank pain History of Present Illness: The patient is a [address] Bean Knapp on Dr. Franco. She reports she has right flank pain that began abruptly at noon today. Is a sharp pain is 10 of 10 severity. Nothing makes this better or worse. She is been nausea and vomited approximately 10 times. No blood in her emesis. She had 4 episodes of diarrhea. No blood in her stools or black tarry stools. She also had dysuria since this began. Physical Examination: Vitals: Stable. Afebrile. General: Well-nourished and well-developed. Head: Normocephalic atraumatic. Neck: Supple, no lymphadenopathy. No JVD. Nontender. Cardiovascular: Regular rate and rhythm. No murmurs. Respiratory: No respiratory distress. Clear to auscultation bilaterally. Abdominal: Soft, nontender, nondistended, normal bowel sounds. No guarding, rebound, or peritoneal signs. Back: Nontender. No CVA tenderness. Extremities: Nontender, no edema. Skin: Normal color, no rash. Neurologic: Alert and oriented ?3. Cranial nerves II through XII are intact. Normal strength and sensation. Psych: Normal affect. Test Results: CBC is normal. Chem-7 is marked for chloride of 109 and glucose 131. UA shows leukocytes, blood, ketones. Clinical Impression(s) from Imaging Studies Abdomen/Pelvis CT 09/18/20 15:12 IMPRESSION: Moderate right hydroureteronephrosis with a punctate 1 mm stone in the right ureterovesical junction. Hiatal hernia. Electronically Signed: Chilo Shaver MD at 16:52 EDT Tel , Service support , Emergency Department Course and Treatment: Patient was given a dose of morphine, Toradol, and Zofran IV. She continued complaint of pain was given a dose of Dilaudid IV. She states her pain is actually resolved and she believes she passed the stone while here. Treatment Plan: Patient will be discharged with Enterprise, senna, and Zofran. Instructed to follow-up Dr. Franco in 1 week if not improving. Return to the emergency department for any worsening symptoms. Disposition: To home in improved and stable condition. Impression: 1. Right ureterolithiasis. This note was generated with [employer] dictation software. It may contain incorrect words, spelling, and punctuation that were not noted in review of the chart prior to signing ED Disposition - Plan for ED Patient: Disposition: Home or Assisted Living Instructions: ED Kidney Stone w/ Colic Prescriptions: Hydrocodone Bitart/Apap 5-325 [Enterprise 5MG-325MG] 1 tablet PO Q6H PRN PRN 3 Days #10 tab PRN Reason: Pain Prescription Printed Sennosides [Senna] 8.6 mg PO QHS #10 tablet Prescription Printed Ondansetron [Zofran Odt] 4 mg PO Q8H PRN PRN #10 tablet PRN Reason: Nausea Prescription Printed Referrals: Elena Franco MD [STAFF PHYSICIAN] - 3-5 Days if not improving
[2020-09-18 18:04] VITALS: BP 126/88; PULSE 82; RESP 16; O2SAT 97
== END 2020-09-18 18:21 | disposition home or self-care (01) ==
LOC: ED 16:02
PROVIDERS: Emergency Provider Emergency Medicine; PCP Family Medicine
DX: N13.2 Hydronephrosis with renal and ureteral calculous obstruction (principal)
CPT/HCPCS: 74176; 80048; 81001; 85025; 96361; 96374; 96375; 96376; 99283; J7030; A4216; J2405

== ENCOUNTER → 2020-11-07 | Outpatient (CLI) | payer MEDICARE, OTHER, SELFPAY ==
[2020-11-07 18:07] LABS: Mucous, Urine 0 SEEN /hpf (<or=2+)
[2020-11-07 18:22] LABS: Color, Urine Yellow (Yellow); Glucose, Dipstick Normal (Normal); Ketone-Dipstick Negative (Negative); Leukocyte Esterase-Dipstick 500 /ul (Negative); Nitrite-Dipstick Positive (Negative); Occult Blood-Urine 25 /ul (Negative); Protein-Dipstick Negative (Negative); Specific Gravity, Urine 1.015 (1.002-1.030); Urine Bilirubin Dipstick Negative (Negative); Urine Clarity Clear (Clear); Urine Urobilinogen Normal (Normal); Urine pH 6.5 (5.0 - 8.0)
[2020-11-07 18:35] LABS: Bacteria 1+ /hpf (None Seen); Red Blood Cells-Urine 0-5 SEEN /hpf (0-5); Squamous Epithelial Cells - UA 0-5 SEEN /hpf (5-10); White Blood Cells 10-25 SEEN /hpf (0-5)
== END | disposition home or self-care (01) ==
LOC: LABSPEC 18:06
PROVIDERS: PCP Family Medicine; Visit Provider Physician Assistant Surgical
DX: N39.0 Urinary tract infection, site not specified (principal)
CPT/HCPCS: 81001; 87086; 87088; 87186

== ENCOUNTER → 2020-11-30 08:16 | Outpatient (CLI) | payer MEDICARE, OTHER, SELFPAY ==
[2020-11-22 17:17] VITALS: BMI 30.2
--- NOTE | 2020-11-30 08:25 | RAD_ITS ---
STUDY: AIR CONTRAST UPPER GI SERIES and esophagram. REASON FOR EXAM: Female, 70 years old. HIATAL HERNIA FLUOROSCOPY TIME (if supplied): (49 seconds) minutes/seconds TECHNIQUE: SINGLE CONTRAST AND AIR CONTRAST FLUOROSCOPIC IMAGES. COMPARISON: None. FINDINGS: The cervical esophagus demonstrates normal motility without aspiration. There is no stricture or extrinsic mass effect. No intraluminal polypoid mass is identified. The thoracic esophagus distends well without stricture or mucosal fold thickening. No mucosal ulcerations are identified. There is no extrinsic mass effect. There are no diverticula. Moderate sized hiatal hernia with gastroesophageal reflux. The patient was unable to swallow the 12 mm tablet of barium. The stomach distends well without mucosal fold thickening or mucosal ulceration. There is no intraluminal mass. The duodenal bulb is freely distensible without deformity or ulceration. The duodenal sweep is normal in position and caliber. RAD/Upper GI w/BA Swallow IMPRESSION: Moderate sized hiatal hernia with gastroesophageal reflux. Patient was unable to swallow the 12 mm tablet of barium. Electronically Signed: Eliseo Amaya MD at 10:21 EDT , Service support ,
== END ==
PROVIDERS: PCP Family Medicine; Referring Provider Internal Medicine Gastroenterology; Visit Provider Internal Medicine Gastroenterology
DX: K44.9 Diaphragmatic hernia without obstruction or gangrene (principal)
CPT/HCPCS: 74246

== ENCOUNTER → 2021-01-15 09:55 | Outpatient (CLI) | payer MEDICARE, OTHER, SELFPAY ==
[2020-12-14 10:35] VITALS: BMI 30.2
--- NOTE | 2021-01-15 09:58 | CDU_ITS ---
Reason For Study: Syncope Rt. Velocities/BP Lt. Velocities/BP Prox CCA 85.2/16 cm/sec. Prox CCA 84.4/26.7 cm/sec. Mid CCA 90.4/27.8 cm/sec. Mid CCA 78.7/29.6 cm/sec. Dist CCA 90.4/29.1 cm/sec. Dist CCA 68.3/25.8 cm/sec. Prox ICA 75.4/16.1 cm/sec. Prox ICA 53.2/14.5 cm/sec. Mid ICA 84.6/27.9 cm/sec. Mid ICA 83.4/31.5 cm/sec. Dist ICA 79.1/29.8 cm/sec. Dist ICA 78.3/30 cm/sec. Rt. ICA/CCA = 1.00. Lt. ICA/CCA = 1.06. Prox ECA 95.5/15.2 cm/sec. Prox ECA 59.8/17.3 cm/sec. Rt. Vert. 35.2/10.7 cm/sec. Lt. Vert. 36.5/13 cm/sec. Right Extracranial There is intimal thickening but no significant atherosclerotic plaque noted in the right common carotid artery. There is intimal thickening but no significant atherosclerotic plaque noted in the right internal carotid artery. The right internal carotid artery is very tortuous. There is intimal thickening but no significant atherosclerotic plaque noted in the right external carotid artery. Antegrade flow is noted in the right vertebral artery. Left Extracranial There is intimal thickening but no significant atherosclerotic plaque noted in the left common carotid artery. There is intimal thickening but no significant atherosclerotic plaque noted in the left internal carotid artery. The left internal carotid artery is very tortuous. There is intimal thickening but no significant atherosclerotic plaque noted in the left external carotid artery. Antegrade flow is noted in the left vertebral artery. Nonvascularized structure noted in the left thyroid that measures 1.26 x 1.23 x 1.62 cm. Procedure Carotid Duplex 13524. This is a Carotid Duplex examination using B-mode, color flow and specral Doppler. Exam performed in department. VL/Carotid Duplex Ultrasound Interpretation Summary Intimal thickening at the proximal right internal carotid artery with less than 50% stenosis Less than 50% stenosis right external carotid artery Intimal thickening but no significant plaque of the proximal left internal ariza tid artery with less than 50% stenosis Less than 50% stenosis left external carotid artery Patent and antegrade vertebral arteries bilaterally Nonvascular solid cystic mass left thyroid 1.26 x 1.23 x 1.62 cm Ordering Physician: Bean Knapp Referring Physician: Bean Knapp Performed By: Vera Cruz RVT
--- NOTE | 2021-01-15 09:58 | STEWCON_ITS ---
Reason For Study: Dyspnea On Exertion Stress Results Protocol: Gómez Protocol WITH DEFINITY Maximum Predicted HR: 151 bpm Target HR: 128 bpm % Maximum Predicted HR: 94 % DurationHeart Rate Stage (mm:ss) (bpm) BP Comment Baseline 58 108/70No Chest Pain; 3 ML Diluted Definity Gómez Protocol Stage I 3:00 121 112/70No Chest Pain; Mild Dyspnea Gómez Protocol Stage II 3:00 136 130/66No Chest Pain; Moderate Dyspnea Gómez Protocol Stage III 0:30 142 / No Chest Pain; Moderate Dyspnea Recovery 69 112/68No Chest Pain; No Dyspnea Stress Duration: 6:30 mm:ss Maximum Stress HR: 142 bpm METS: 8 Baseline Echocardiogram Findings Stress Echo Wall motion Data Resting WM Intermediate WM Stress WM ECHO/Stress Test Echo W/Contrast Interpretation Summary Exercise stress test with Definity enhancement. 70-year-old lady with a history of dyspnea on exertion. Stress protocol: Resting KG demonstrates sinus bradycardia with a rate of 59 bpm normal interval s are noted resting blood pressure is 108/70 mmHg. The patient exercised according to regular Gómez protocol for total duration of 6 minutes and 30 seconds. The maximum heart rate attained was 142 b pm which was 94% of max impact her heart rate the maximum workload was 8.5 metabolic equivalents. A t rest there were no ST or T wave changes noted to suggest ischemia and at peak exercise upsloping S T changes were noted with did not meet the criteria for ischemia. No clinical angina was noted the t est was terminated due to dyspnea on exertion. Stress echocardiographic images. Stress echocardiographic images were obtained with Definity enhancement. There was thickening of all cristobal noted with exercise stress testi ng. The resting ejection fraction was approximately 55% with a peak ejection fraction of 65% wi th no new wall motion abnormalities noted to suggest ischemia. Conclusion: Exercise stress echocardiogram with no EKG or echocardiographic criteria for is chemia at a moderate to high workload. Good functional capacity. Ordering Physician: Bean Knapp Referring Physician: Dusty Car Performed By: Arelis Barragan, INDY, RVT
== END ==
PROVIDERS: PCP Family Medicine; Referring Provider Family Medicine; Visit Provider Family Medicine
DX: R06.00 Dyspnea, unspecified (principal); R07.9 Chest pain, unspecified; R55 Syncope and collapse
CPT/HCPCS: 93017; 93350; 93880; J7040; Q9957; A4216; C8928; J3490

== ENCOUNTER → 2021-01-22 | Outpatient (CLI) | payer MEDICARE, OTHER, SELFPAY | END | disposition home or self-care (01) | PROVIDERS: Visit Provider Physician Assistant Surgical | DX: N30.01 Acute cystitis with hematuria (principal) | CPT/HCPCS: 87086; 87088; 87186 ==

== ENCOUNTER → 2021-02-26 | Outpatient (CLI) | payer MEDICARE, OTHER, SELFPAY | END | disposition home or self-care (01) | LOC: LABSPEC 13:39 | PROVIDERS: Referring Provider Physician Assistant; Visit Provider Physician Assistant | DX: Z11.52 Encounter for screening for COVID-19 (principal) | CPT/HCPCS: 87635; U0005; U0003 ==

== ENCOUNTER 2021-05-30 12:12 | Outpatient (CLI) | payer MEDICARE, OTHER, SELFPAY | END 2021-05-30 23:59 | disposition short-term general hospital (02) | LOC: LABSPEC 12:13 | PROVIDERS: Visit Provider Physician Assistant | DX: Z11.52 Encounter for screening for COVID-19 (principal) | CPT/HCPCS: 87635; U0003; U0005 ==

== ENCOUNTER 2021-07-26 10:35 | Outpatient (CLI) | payer MEDICARE, OTHER, SELFPAY ==
--- NOTE | 2021-07-26 10:42 | BI_ITS ---
MAMMOGRAPHY - BILATERAL SCREENING REASON FOR EXAM: Female, 71 years old. Routine annual screening examination. PERTINENT HISTORY: Non-contributory. TECHNIQUE: Digital bilateral breast lisa (3D mammographic acquisition) in the CC and MLO projections. 2-D mediolateral oblique (MLO) and craniocaudad (CC) views of both breasts were obtained. CAD: Full Field Digital Mammography with Computer Added Detection was performed. COMPARISON: Comparison is made with prior examination dated 01/14/2020 and 07/15/2018. FINDINGS: Breast Composition: There are scattered areas of fibroglandular density. There are no dominant masses or suspicious calcifications. No other significant abnormalities are identified. There has been no significant change since the prior study. BI/SCRN MAMM (CAD)W/LISA BILAT IMPRESSION: Stable bilateral screening mammogram. Yearly follow-up mammogram recommended. (A) ASSESSMENT CATEGORY: BIRADS Category 1: Negative. A letter regarding these results will be sent to the patient by the facility within 30 days. Approximately 10% of breast cancers are not detected by mammography. A normal mammogram should not delay biopsy of a clinically suspicious abnormality. [id number] Electronically Signed: Eliseo Amaya MD at 12:22 EST ,
== END 2021-07-26 23:59 | disposition home or self-care (01) ==
LOC: OPBI 10:40
PROVIDERS: PCP Family Medicine; Visit Provider Obstetrics & Gynecology
DX: Z12.31 Encounter for screening mammogram for malignant neoplasm of breast (principal)
CPT/HCPCS: 77063; 77067

== ENCOUNTER → 2021-09-24 | Outpatient (CLI) | payer MEDICARE, OTHER, SELFPAY ==
[2021-09-24 17:58] LABS: Bacteria 0 SEEN /hpf (None Seen); Mucous, Urine 0 SEEN /hpf (<or=2+); Red Blood Cells-Urine 0 SEEN /hpf (0-5); Squamous Epithelial Cells - UA 0 SEEN /hpf (5-10)
[2021-09-24 18:23] LABS: Color, Urine Yellow (Yellow); Glucose, Dipstick Normal (Normal); Ketone-Dipstick 5 mg/dl (Negative); Leukocyte Esterase-Dipstick 500 /ul (Negative); Nitrite-Dipstick Negative (Negative); Occult Blood-Urine 10 /ul (Negative); Protein-Dipstick 15 mg/dl (Negative); Specific Gravity, Urine 1.015 (1.002-1.030); Urine Bilirubin Dipstick Negative (Negative); Urine Clarity Clear (Clear); Urine Urobilinogen Normal (Normal); Urine pH 6.5 (5.0 - 8.0)
[2021-09-24 18:42] LABS: White Blood Cells 10-25 SEEN /hpf (0-5)
== END | disposition home or self-care (01) ==
PROVIDERS: PCP Family Medicine; Visit Provider Physician Assistant
DX: R30.0 Dysuria (principal)
CPT/HCPCS: 81001; 87077; 87086; 87088; 87186

== ENCOUNTER → 2021-09-29 | Outpatient (CLI) | payer MEDICARE, OTHER, SELFPAY ==
--- NOTE | 2021-09-29 08:30 | MRI_ITS ---
STUDY: MRI CERVICAL SPINE WITHOUT CONTRAST REASON FOR EXAM: Female, 71 years old. SPINAL STENOSIS TECHNIQUE: Standardized fat and water weighted pulse sequences were obtained in the sagittal and axial planes. COMPARISON: 07/23/2016 FINDINGS: Normal foramen magnum and brainstem-cervical cord junction. Normal craniovertebral junction. Normal anterior atlantoaxial articulation. Normal odontoid process. Normal cervical lordosis. Normal vertebral bodies and posterior osseous elements. C2-3: Normal endplates. Normal disc height, signal and morphology. Normal central canal and intervertebral neural foramina. C3-4: Normal endplates. Normal disc height, signal and morphology. Normal central canal and intervertebral neural foramina. C4-5: Normal endplates. Normal disc height, signal and morphology. Normal central canal and intervertebral neural foramina. C5-6: Normal endplates. Normal disc height, signal and morphology. Normal central canal and intervertebral neural foramina. C6-7: Interval resolution of the large right paracentral and preforaminal disc protrusion and now with a moderate bilobed disc osteophyte complex and right uncovertebral hypertrophy with improved spinal stenosis which is moderate with abutment the central spinal cord and moderate right neural foraminal stenosis. 4 C7-T1: Normal endplates. Normal disc height, signal and morphology. Normal central canal and intervertebral neural foramina. Normal cervical cord. Normal visualized soft tissue structures. MRI/Spine Cervical (Routine) IMPRESSION: Improved focal degenerative disc disease at C6-C7 as described above. Electronically Signed: Jose Alfredo Wong MD at 14:41 EDT ,
== END | disposition home or self-care (01) ==
LOC: MRI 07:56
PROVIDERS: PCP Family Medicine; Referring Provider Orthopaedic Surgery; Visit Provider Orthopaedic Surgery
DX: M48.02 Spinal stenosis, cervical region (principal); M47.812 Spondylosis without myelopathy or radiculopathy, cervical region; M50.30 Other cervical disc degeneration, unspecified cervical region
CPT/HCPCS: 72141

== ENCOUNTER → 2022-04-24 | Outpatient (CLI) | payer MEDICARE, OTHER, SELFPAY ==
[2022-04-24 11:45] LABS: Erythrocyte Sedimentation Rate 6 mm/hr (0-30)
[2022-04-24 11:46] LABS: Absolute Lymphocyte Count 1.32 X10^3/uL (0.83-4.51); Absolute Neutrophil Count 4.3 X10^3/uL (2.0-7.7); Basophil# 0.03 X10^3/uL; Basophil% 0.5 % (0-1); Eosinophil# 0.08 X10^3/uL; Eosinophils% 1.3 % (0-5); Hematocrit 39.7 % (37-47); Hemoglobin 13.1 g/dL (12.0-15.0); Lymphocyte # 1.32 X10^3/ul (0.83-4.51); Lymphocyte % 21.6 % (19-41); Mean Corpuscular Hgb 29.5 pg (27.0-32.0); Mean Corpuscular Volume 89.4 fL (81-99); Mean Platelet Vol. 10.9 fl (6.2-12.0); Monocyte# 0.34 X10^3/uL; Monocyte% 5.6 % (0-10); NRBC Flagged by Analyzer 0 % (0-5); Neutrophil # 4.32 X10^3/uL (2.7-7.7); Neutrophil % 70.7 % (47-70); Platelet Count 221 K/mm3 (150-450); RBC Distribution Width SD 45.5 fl (35.1-43.9); Red Blood Count 4.44 M/mm3 (4.2-5.4); White Blood Count 6.1 K/mm3 (4.4-11.0)
[2022-04-24 11:50] LABS: CRP < 2.90 mg/L (0.0-3.0)
== END | disposition home or self-care (01) ==
LOC: LAB 11:04
PROVIDERS: PCP Family Medicine; Referring Provider Physician Assistant; Visit Provider Physician Assistant
DX: M17.11 Unilateral primary osteoarthritis, right knee (principal)
CPT/HCPCS: 36415; 85025; 85652; 86140

== ENCOUNTER → 2022-04-26 | Outpatient (CLI) | payer MEDICARE, OTHER, SELFPAY ==
--- NOTE | 2022-04-26 06:41 | MRI_ITS ---
STUDY: MRI RIGHT KNEE REASON FOR EXAM: Female, 72 years old. Pain. Osteoarthritis. TECHNIQUE: Standardized fat and water weighted pulse sequences were obtained in all 3 orthogonal planes. COMPARISON: None. FINDINGS: There is a medial meniscus tear of the posterior horn and body, series 4 images 34/42 through 36/42. There is diffuse, greater than 50% thickness articular cartilage loss of the medial femorotibial compartment. There is mild osteoarthritic spur formation of the medial knee compartment. Normal medial collateral ligamentous complex (MCL). Normal distal semimembranosus, gracilis and semitendinosus tendons. Normal lateral meniscus. Normal hyaline cartilage of the lateral femorotibial compartment. Normal lateral femoral condyle and tibial plateau. Normal proximal tibiofibular articulation. Normal lateral collateral (fibular) ligament. Normal popliteus tendon. Normal biceps femoris tendon. Normal anterior cruciate ligament (ACL). Normal posterior cruciate ligament (PCL). There is arthrosis of the patellofemoral articulation. There is diffuse, greater than 50% thickness articular cartilage loss of the patellofemoral compartment. There is mild spurring. Normal medial and lateral patellar retinaculum. Normal quadriceps tendon. Normal patellar tendon. Normal Hoffa''s fat pad. There is a small volume joint effusion. The soft tissues are unremarkable. The otherwise visualized osseous structures are unremarkable. MRI/Lower Ext Joint Only (Routine) IMPRESSION: Medial meniscus tear. Degenerative changes. Joint effusion. Electronically Signed: Alber Horne MD at 10:57 EST ,
== END | disposition home or self-care (01) ==
LOC: MRI 06:27
PROVIDERS: PCP Family Medicine; Referring Provider Physician Assistant; Visit Provider Physician Assistant
DX: M17.11 Unilateral primary osteoarthritis, right knee (principal)
CPT/HCPCS: 73721

== ENCOUNTER 2022-04-27 20:51 | Emergency (ER) | payer MEDICARE, OTHER, SELFPAY ==
[2022-04-27 20:52] VITALS: BP 151/94; PULSE 79; RESP 18; TEMP 36.1; O2SAT 97; BMI 28.7
--- NOTE | 2022-04-27 21:15 | EDS_ITS ---
HPI History of Present Illness Chief Complaint: Lower Extremity Injury Narrative Narrative: 72-year-old female right medial knee pain. She states she has had this for about a month. She believes she injured this line dancing. She states she specifically doing some kicks during dance which she thinks caused the problem. She followed up with Dr. Sprague and he had an MRI performed Friday. The patient did not know the results of the MRI but decided to go line dancing last night and now her knee hurts again. She states she is taking ibuprofen which is not helping with the pain. She denies any new direct trauma. She denies swelling. She states that ice and compression both make the pain worse. [facility] Medical History Acute bronchitis, unspecified Anxiety Chronic cough Cough GERD (gastroesophageal reflux disease) History of shingles Lab test negative for COVID-19 virus Lumbar radiculopathy Lung cancer Sciatica URI (upper respiratory infection) Vitamin D deficiency Home Medications acetaminophen 500 mg tablet 1,000 mg PO Q8 #90 tabs 08/10/19 [Rx Last Taken Unknown] aspirin 81 mg chewable tablet 81 mg PO BIDCM ##60 08/10/19 [Rx Last Taken Unknown] atorvastatin 10 mg tablet 10 mg PO QHS 06/13/20 [History Last Taken Unknown] diclofenac sodium 1 % topical gel 4 g topical .QID PRN Pain Or Fever #100 grams 07/27/21 [Rx Last Taken Unknown] ibuprofen 800 mg tablet 800 mg PO TID PRN Pain Or Fever #30 tabs 07/27/21 [Rx Last Taken Unknown] ergocalciferol (vitamin D2) 1,250 mcg (50,000 unit) capsule 50,000 unit PO QWEEK supplement #20 caps 01/23/22 [Rx Last Taken Unknown] esomeprazole magnesium 40 mg capsule,delayed release 40 mg PO QDAY gerd #90 caps 01/23/22 [Rx Last Taken Unknown] albuterol sulfate 90 mcg/actuation aerosol inhaler (ProAir HFA) 1 - 2 puff inhalation Q6H PRN shortness of breath or wheezing #8.5 grams 03/10/22 [Rx Last Taken Unknown] benzonatate 100 mg capsule 100 mg PO TID PRN cough #30 caps 03/10/22 [Rx Last Taken Unknown] nirmatrelvir 300 mg (150 mg x2)-ritonavir 100 mg tablet,dose pack(EUA) (Paxlovid) See Rx Instructions PO .COMPLEX #30 tabs 03/10/22 [Rx Last Taken Unknown] tramadol 50 mg tablet 50 mg PO BID PRN pain #7 tabs 04/27/22 [Rx Last Taken Unknown] Allergy/AdvReac Type Severity Reaction Status Date / Time Sulfa (Sulfonamide Allergy Intermediate sores in Verified 04/27/22 20:52 Antibiotics) mouth amoxicillin [From Amoxil] AdvReac Intermediate yeast & Verified 04/27/22 20:52 bladder infections Family History Aunt Colon cancer Diabetes Mother Thyroid disorder Heart disease Son Hypercholesteremia Grandmother Heart disease Surgical History History of back surgery History of bilateral cataract extraction history of bunionectomy History of section History of colonoscopy History of cystoscopy History of esophagogastroduodenoscopy (EGD) History of lateral meniscus repair of left knee History of lobectomy of lung History of total left knee replacement Social History Smoking Status: Former smoker quit date: 05/26/08 Tobacco: How many years used: 40 alcohol intake: current alcohol intake frequency: holidays/special occasions only substance use type: does not use ROS ROS ED Constitutional Constitutional ED: Denies chills, fever(s) or sweats Eyes Eyes: Denies blurry vision or change in vision ENT ENT ED: Denies ear pain or sore throat Cardiovascular Cardiovascular: Denies chest pain, palpitations or racing heartbeat Respiratory/Chest Respiratory/Chest: Denies cough, dyspnea or sputum Gastrointestinal Gastrointestinal: Denies abdominal pain, constipation, diarrhea, nausea or vomiting Genitourinary Genitourinary ED: Denies dysuria, hematuria or urinary frequency Musculoskeletal Musculoskeletal: Reports other Details: Right knee pain ; Denies arthralgias, myalgias or neck pain Integumentary Denies abscess, Abrasions or rash Neurologic Neurologic: Denies headache(s), paresthesias or weakness Psychiatric Psychiatric: Denies anxiety, depression, suicidal ideation or suicidal thoughts Endocrine Endocrinology: Denies polydipsia or polyuria EXAM Physical Exam Const Vital Signs: 04/27/22 20:52 Temperature 97 F L Temperature Source Temporal Pulse Rate 79 Respiratory Rate 18 Blood Pressure 151/94 H Blood Pressure Mean 113 Pulse Ox 97 Oxygen Delivery Method Room Air Positive well nourished General Appearance ED: NAD HEENT Reports moist mucous membranes normocephalic and atraumatic Eyes PERRL Chest Wall inspection of chest normal Resp normal respiratory effort Cardio regular rate and regular rhythm Extremity Extremity Narrative: Right knee: Tenderness to palpation on the right medial joint line. No significant swelling. No erythema. Extensor mechanism is intact. Neuro oriented x3 and CN's II-XII intact bilaterally Sensorium / Orientation: alert Motor Exam: strength 5/5 throughout Psych mental status grossly normal Skin no wounds MDM MDM MDM Narrative Medical decision making narrative: Patient presenting with knee pain. She is had this for about a month. She had an MRI Friday which showed a meniscus tear and a small joint effusion. Joint line dancing last evening and now it hurts worse. I do not believe she needs imaging today. I gave her a shot of Toradol and Ultram. I am recommending ice and compression. She will follow-up with Dr. Champion. I also recommended her that she does not line dance. I will provide the patient with a few Ultram to help bridge her to her follow-up. Patient discharged in stable condition. Impression: 1. Meniscal tear Lab Data Attestation: I reviewed the patient's lab results. Discharge Plan Triage Chief Complaint: Lower Extremity Injury ED Provider: Jewel Puente Dx/Rx/DC Orders Instructions: ED Meniscal Injury Knee Poss Prescriptions: New tramadol 50 mg tablet 50 mg PO BID PRN (Reason: pain) Qty: 7 0RF No Action atorvastatin 10 mg tablet 10 mg PO QHS albuterol sulfate [ProAir HFA] 90 mcg/actuation HFA aerosol inhaler 1 - 2 puff inhalation Q6H PRN (Reason: shortness of breath or wheezing) Qty: 8.5 3RF benzonatate 100 mg capsule 100 mg PO TID PRN (Reason: cough) Qty: 30 0RF Paxlovid (EUA) 300 mg (150 mg x 2)-100 mg tablets,dose pack See Rx Instructions PO .COMPLEX Qty: 30 0RF Rx Instructions: take TWO 150 mg tablets of nirmatrelvir with ONE 100 mg tablet of ritonavir twice daily for 5 days PO acetaminophen 500 MG tablet 1,000 mg PO Q8 Qty: 90 0RF aspirin 81 MG tablet,chewable 81 mg PO BIDCM Qty: 60 0RF ibuprofen 800 mg tablet 800 mg PO TID PRN (Reason: Pain Or Fever) Qty: 30 1RF diclofenac sodium 1 % gel 4 g TOPICAL .QID PRN (Reason: Pain Or Fever) Qty: 100 2RF esomeprazole magnesium 40 mg capsule,delayed release(DR/EC) 40 mg PO QDAY Qty: 90 1RF ergocalciferol (vitamin D2) 1,250 mcg (50,000 unit) capsule 50,000 unit PO QWEEK Qty: 20 2RF Primary Care Provider: Bean Knapp Referrals: Bean Knapp, [Primary Care Provider] - Disposition Disposition: Home, Self Care
[2022-04-27] MEDS: traMADol 50 MG Tablet PO (21:20)
[2022-04-27] MEDS: Ketorolac 15 MG/ML Vial IM (21:21)
== END 2022-04-27 22:41 | disposition home or self-care (01) ==
PROVIDERS: Emergency Provider Student in an Organized Health Care Education/Training Program; PCP Family Medicine; Visit Provider Student in an Organized Health Care Education/Training Program
DX: S83.206A Unspecified tear of unspecified meniscus, current injury, right knee, initial encounter (principal); M25.461 Effusion, right knee; Z87.891 Personal history of nicotine dependence; X50.1XXA Overexertion from prolonged static or awkward postures, initial encounter; Y93.41 Activity, dancing
CPT/HCPCS: 96372; 99281; 99283

== ENCOUNTER → 2022-06-05 | Outpatient (CLI) | payer MEDICARE, OTHER, SELFPAY ==
[2022-06-05 13:15] LABS: Bacteria 0 SEEN /hpf (None Seen); Mucous, Urine 0 SEEN /hpf (<or=2+); Squamous Epithelial Cells - UA 0 SEEN /hpf (5-10)
[2022-06-05 13:22] LABS: Color, Urine Yellow (Yellow); Glucose, Dipstick Normal (Normal); Ketone-Dipstick Negative (Negative); Leukocyte Esterase-Dipstick 500 /ul (Negative); Nitrite-Dipstick Negative (Negative); Occult Blood-Urine 250 /ul (Negative); Protein-Dipstick 30 mg/dl (Negative); Specific Gravity, Urine 1.015 (1.002-1.030); Urine Bilirubin Dipstick Negative (Negative); Urine Clarity Cloudy (Clear); Urine Urobilinogen Normal (Normal)
[2022-06-05 13:35] LABS: Red Blood Cells-Urine 5-10 SEEN /hpf (0-5); White Blood Cells >100 SEEN /hpf (0-5)
== END | disposition home or self-care (01) ==
LOC: LABSPEC 12:32
PROVIDERS: PCP Family Medicine; Referring Provider Physician Assistant; Visit Provider Physician Assistant
DX: N30.01 Acute cystitis with hematuria (principal); R30.0 Dysuria
CPT/HCPCS: 81001; 87086; 87088; 87186

== ENCOUNTER → 2022-08-01 | Outpatient (CLI) | payer MEDICARE, OTHER, SELFPAY ==
[2022-08-01 14:31] LABS: Bacteria 0 SEEN /hpf (None Seen); Mucous, Urine 0 SEEN /hpf (<or=2+); Red Blood Cells-Urine 0 SEEN /hpf (0-5); Squamous Epithelial Cells - UA 0 SEEN /hpf (5-10); White Blood Cells 0 SEEN /hpf (0-5)
[2022-08-01 16:27] LABS: Absolute Lymphocyte Count 1.97 X10^3/uL (0.83-4.51); Absolute Neutrophil Count 4.3 X10^3/uL (2.0-7.7); Basophil# 0.04 X10^3/uL; Basophil% 0.6 % (0-1); Eosinophil# 0.06 X10^3/uL; Eosinophils% 0.9 % (0-5); Hematocrit 39.9 % (37-47); Hemoglobin 12.6 g/dL (12.0-15.0); Lymphocyte # 1.97 X10^3/ul (0.83-4.51); Lymphocyte % 28.7 % (19-41); Mean Corp Hgb Conc 31.6 g/dL (32-36); Mean Corpuscular Hgb 29.5 pg (27.0-32.0); Mean Corpuscular Volume 93.4 fL (81-99); Mean Platelet Vol. 11.4 fl (6.2-12.0); Monocyte# 0.49 X10^3/uL; Monocyte% 7.1 % (0-10); NRBC Flagged by Analyzer 0 % (0-5); Neutrophil # 4.27 X10^3/uL (2.7-7.7); Neutrophil % 62.3 % (47-70); Platelet Count 222 K/mm3 (150-450); RBC Distribution Width CV 14.2 % (11.6-14.6); RBC Distribution Width SD 48.6 fl (35.1-43.9); Red Blood Count 4.27 M/mm3 (4.2-5.4); White Blood Count 6.9 K/mm3 (4.4-11.0)
[2022-08-01 16:30] LABS: Color, Urine Yellow (Yellow); Glucose, Dipstick Normal (Normal); Ketone-Dipstick Negative (Negative); Leukocyte Esterase-Dipstick Negative /ul (Negative); Nitrite-Dipstick Negative (Negative); Occult Blood-Urine Negative /ul (Negative); Protein-Dipstick 15 mg/dl (Negative); Specific Gravity, Urine 1.025 (1.002-1.030); Urine Bilirubin Dipstick Negative (Negative); Urine Clarity Clear (Clear); Urine Urobilinogen Normal (Normal)
[2022-08-01 16:34] LABS: Prothrombin Time (Protime)PT. 12.8 SECONDS (11.7-14.9)
[2022-08-01 16:39] LABS: Anion Gap 5 (5-15); BUN 22 mg/dL (7-18); BUN/Creat Ratio 31.7 RATIO (10-20); Chloride 109 mmol/L (98-107); EST Glomerular Filtration Rate 88 mL/min (>60); Est Glom Filt Rate - Afr Amer 107 mL/min (>60); Glucose 130 mg/dL (74-106); Potassium 3.5 mmol/L (3.5-5.1); Sodium Level 142 mmol/L (136-145)
== END | disposition home or self-care (01) ==
LOC: BIMLAB 14:31
PROVIDERS: PCP Family Medicine; Referring Provider Nurse Practitioner Family; Visit Provider Nurse Practitioner Family
DX: R23.3 Spontaneous ecchymoses (principal); F41.9 Anxiety disorder, unspecified; R58 Hemorrhage, not elsewhere classified
CPT/HCPCS: 36415; 80048; 81001; 85025; 85610

== ENCOUNTER 2022-08-02 00:10 | Observation (INO) | payer MEDICARE, OTHER, SELFPAY ==
[2022-08-02] VITALS (14 sets, daily range): BP systolic 101–151; BP diastolic 71–89; PULSE 64–89; RESP 12–18; TEMP 36.3–36.8; O2SAT 94–100; BMI 29.2; BMI 28.6
--- NOTE | 2022-08-02 00:50 | CT_ITS ---
EXAM: CT brain without contrast HISTORY: Left-sided weakness, Neuro deficit, acute, stroke suspected TECHNIQUE: CT Head Stroke Protocol W/O Contrast Injection A radiation dose optimization technique was used for this scan. COMPARISON: None. LIMITATIONS: None. BRAIN: Normal wood/white matter differentiation. VENTRICLES: No hydrocephalus. EXTRA-AXIAL SPACES: No hemorrhages, fluid collections, or masses. CALVARIUM/SKULL BASE: Normal. FACE/SINUSES: Visualized portions normal. SOFT TISSUES: Normal. OTHER: None. CT/STROKE Brain/Head without Cont IMPRESSION: No intracranial hemorrhage or acute territorial infarction. Findings discussed with Dr. Jewel Puente via phone at 10:26 PM PST on 08/01/2022. N.B. : The above Results were Read Back by Kahlil Stinson MD to Jewel Puente DO, and understanding confirmed on 08/02/2022 01:27:30 (ET). Electronically Signed: Kahlil Stinson MD at 1:29 EST ,
--- NOTE | 2022-08-02 00:50 | RAD_ITS ---
EXAM: XR CHEST, 1 VIEW CLINICAL INDICATION: Neuro deficit, acute, stroke suspected TECHNIQUE: Frontal view of the chest. This report was created using [employer] report generation technology. COMPARISON: None. FINDINGS: LUNGS AND PLEURAL SPACES: Question focal short segment pleural parenchymal scarring at the periphery of the left midlung. No pleural effusion or pneumothorax. HEART: Unremarkable. No cardiomegaly. MEDIASTINUM: Hiatal hernia suggested. Fullness of the right hilar/suprahilar region region and right superior mediastinum. No left hilar enlargement I comparison. Ectatic thoracic arch with atherosclerotic calcifications. No consolidation. BONES/JOINTS: Degenerative changes of the spine. SOFT TISSUES: Unremarkable. RAD/Chest 1 View IMPRESSION: 1. No acute cardiopulmonary disease. 2. Nonspecific fullness of the right hilar/suprahilar region region and right superior mediastinum. Follow-up advised. Electronically Signed: Ruddy Cisse MD at 1:37 EST ,
--- NOTE | 2022-08-02 00:53 | CT_ITS ---
EXAM: CTA Head and Neck W/ Contrast Injection (and W/O Contrast Images if performed) HISTORY: Neuro deficit, acute, stroke suspected TECHNIQUE: CTA Head and Neck W/ Contrast Injection (and W/O Contrast Images if performed) Postcontrast axial images were obtained of the brain and neck. NASCET criteria using the distal ICAs for comparison were used for evaluation of stenoses. 3D reconstructions were reviewed. A radiation dose optimization technique was used for this scan. COMPARISON: None. LIMITATIONS: None. CAROTID ARTERIES: Normal. ANTERIOR CEREBRAL ARTERIES: Normal. MIDDLE CEREBRAL ARTERIES: Normal. POSTERIOR CEREBRAL ARTERIES: Normal. BASILAR ARTERY: Normal. VERTEBRAL ARTERIES: Normal. VENOUS STRUCTURES: Normal. OTHER: None. AORTIC ARCH: Normal. CAROTID ARTERIES: Normal. VERTEBRAL ARTERIES: Normal. OTHER ARTERIES: Normal. VENOUS STRUCTURES: Normal. BONES/SOFT TISSUES: Left thyroid nodularity measuring up to 14 mm. OTHER: Emphysematous changes in the partially visualized lung apices. 18 mm nodule partially visualized in the left superior mediastinum. CT/STROKE CTA Head AND Neck W/Con IMPRESSION: 1. No flow-limiting stenosis, aneurysm or dissection in the head and neck. 2. Nonspecific 18 mm soft tissue nodule in the left superior mediastinum, may represent lymphadenopathy however incompletely characterized. CT chest recommended to further characterize. 3. Left thyroid nodularity measuring up to 14 mm, should be further characterized with nonemergent thyroid ultrasound. Findings reported to Dr. Jewel Puente via phone at 10:39 PM PST on 08/01/2022. N.B. : The above Results were Read Back by Kahlil Stinson MD to Jewel Puente DO, and understanding confirmed on 08/02/2022 01:40:13 (ET). Electronically Signed: Kahlil Stinson MD at 1:44 EST ,
--- NOTE | 2022-08-02 00:55 | ED.VIS.STROK ---
HPI History of Present Illness Chief Complaint: Numb/Ting Narrative Narrative: 72-year-old female presenting for evaluation of strokelike symptoms. She states she was sitting in her son room watching television and fell asleep. She states he woke up about 10:30 PM and felt like her face felt funny on the left and was tingly. She also notes that her left hand was tingly and specifically points to her left pinky. She states that she initially thought it would go away so she did not call anybody right away. She called her son at about 1115 and he drove to the house. He does state that her voice was garbled a little bit and mom believe he when she called. This is apparently resolved. In the emergency room she still having tingling in the left face but no facial droop. No slurred speech. She is not having any pain. No history of stroke, but does states she had a similar episode of this in the past but never got evaluated because it went away. [facility] Medical History Acute bronchitis, unspecified Anxiety Bruises easily Chronic cough Cough GERD (gastroesophageal reflux disease) History of shingles Lab test negative for COVID-19 virus Lumbar radiculopathy Lung cancer Sciatica URI (upper respiratory infection) Urinary tract infection with hematuria Vitamin D deficiency Home Medications acetaminophen 500 mg tablet 1,000 mg PO Q8 #90 tabs 08/10/19 [Rx Last Taken Unknown] atorvastatin 10 mg tablet 10 mg PO QHS 06/13/20 [History Last Taken Unknown] diclofenac sodium 1 % topical gel 4 g topical .QID PRN Pain Or Fever #100 grams 07/27/21 [Rx Last Taken Unknown] ibuprofen 800 mg tablet 800 mg PO TID PRN Pain Or Fever #30 tabs 07/27/21 [Rx Last Taken Unknown] ergocalciferol (vitamin D2) 1,250 mcg (50,000 unit) capsule 50,000 unit PO QWEEK supplement #20 caps 01/23/22 [Rx Last Taken Unknown] albuterol sulfate 90 mcg/actuation aerosol inhaler (ProAir HFA) 1 - 2 puff inhalation Q6H PRN shortness of breath or wheezing #8.5 grams 03/10/22 [Rx Last Taken Unknown] esomeprazole magnesium 40 mg capsule,delayed release 40 mg PO QDAY gerd #90 caps 07/10/22 [Rx Last Taken Unknown] tramadol 50 mg tablet 50 mg PO PRN PRN pain 08/02/22 [History Last Taken Unknown] Allergy/AdvReac Type Severity Reaction Status Date / Time Sulfa (Sulfonamide Allergy Intermediate sores in Verified 08/02/22 00:15 Antibiotics) mouth amoxicillin [From Amoxil] AdvReac Intermediate yeast & Verified 08/02/22 00:15 bladder infections Family History Aunt Colon cancer Diabetes Mother Thyroid disorder Heart disease Son Hypercholesteremia Grandmother Heart disease Surgical History History of back surgery History of bilateral cataract extraction history of bunionectomy History of section History of colonoscopy History of cystoscopy History of esophagogastroduodenoscopy (EGD) History of lateral meniscus repair of left knee History of lobectomy of lung History of total left knee replacement Social History Smoking Status: Former smoker quit date: 05/26/08 Tobacco: How many years used: 40 alcohol intake: current alcohol intake frequency: holidays/special occasions only substance use type: does not use ROS ROS ED Constitutional Constitutional ED: Denies chills or fever(s) Eyes Eyes: Denies blurry vision or change in vision ENT ENT ED: Denies rhinorrhea or sore throat Cardiovascular Cardiovascular: Denies chest pain Respiratory/Chest Respiratory/Chest: Denies cough or dyspnea Gastrointestinal Gastrointestinal: Denies abdominal pain, constipation, diarrhea, melena or nausea Genitourinary Genitourinary ED: Denies dysuria or hematuria Neurologic Neurologic: Reports paresthesias LUE and other Details: Tingling to left cheek. Psychiatric Psychiatric: Denies anxiety or depression Endocrine Endocrinology: Denies polydipsia or polyphagia EXAM Physical Exam Const Vital Signs: 08/02/22 00:12 08/02/22 01:30 08/02/22 01:30 Temperature 98.3 F Temperature Source Temporal Pulse Rate 75 66 Respiratory Rate 16 12 Blood Pressure 144/83 H 148/85 H Blood Pressure Mean 103 106 Pulse Ox 98 100 Oxygen Delivery Method Room Air Room Air Room Air 08/02/22 01:30 Temperature Temperature Source Pulse Rate 66 Respiratory Rate 12 Blood Pressure 148/85 H Blood Pressure Mean 106 Pulse Ox 100 Oxygen Delivery Method Room Air Positive well nourished General Appearance ED: NAD HEENT Reports moist mucous membranes and dry mucous membranes Mouth ED: Yes dry mucous membranes Mouth: dry mucous membranes Eyes PERRL and EOMs intact bilaterally Neck no lymphadenopathy Chest Wall inspection of chest normal and palpation of chest normal Resp normal respiratory effort and clear to auscultation bilaterally Auscultation: Negative for rales, rhonchi or wheezes Cardio Rate: regular rate and bradycardia GI normal to inspection, nondistended, normoactive bowel sounds Neuro oriented x3 and CN's II-XII intact bilaterally [place] Coma Scale: document GCS findings Spontaneous Obeys Commands Oriented 15 Sensorium / Orientation: alert, oriented to person and oriented to place Motor Exam: strength 5/5 throughout Psych mental status grossly normal Mood & Affect: Negative for anxious Skin General Skin Exam: Negative for jaundice NIHSS NIHSS Initial: 1a Level of Consciousness: 0 1b LOC Questions (Score 2 if aphasic/stupor): 0 1c LOC Commands (Only score 1st attempt): 0 2 Best Gaze (If aphasic, use reflexive mvmts.): 0 3 Visual: 0 4 Facial Palsy: 1 5 Motor Arm Right (UN = amputation/fusion): 0 5 Motor Arm Left: 0 6 Motor Leg Right: 0 6 Motor Leg Left: 0 7 Limb ataxia (Only + if out of proportion): 0 8 Sensory (Aphasia/stupor=0 or 1, coma=2): 0 9 Best Language: 0 10 Dysarthria (mute, coma=2, intubated=UN): 0 11 Extinction and Inattention (only scored if +): 0 Total Score: 1 MDM MDM MDM Narrative Medical decision making narrative: Patient presenting with tingling sensation in the left cheek as well as into the left hand and specifically the pinky. She states currently on initial evaluation that she feels it still in her left cheek. Her NIH stroke scale score is 1 and this is for a mild facial palsy. Stroke team was not called. She can smile symmetrically and show her teeth but when she blows on her cheeks she cannot blow out the left cheek. Sensation is normal in the left cheek. Currently her hand does not have any sensation loss and motor strength is normal. Son also reports that she had some garbled speech earlier which is now resolved. I did order an SOC consult which is pending. In the meantime I did a stroke work-up. Glucose is 115 at the bedside. CBC to assess white blood cell count, hemoglobin, platelets, differential is normal. PT, INR, PTT all within normal limits. BMP to assess renal function, electrolytes, glucose, anion gap. Slight prerenal azotemia. Otherwise glucose is 121 without anion gap. Electrolytes unremarkable. Chest x-ray on my interpretation shows no acute cardiopulmonary process but the radiologist notes there is a nonspecific hilar//suprahilar mediastinum nonspecific fullnesss. Radiologist are persistent agrees. EKG was obtained which shows a normal sinus rhythm with a ventricular rate of 63 bpm without sign of ischemic change or dysrhythmia on my interpretation. CT brain and CTA were obtained and these are both negative for acute findings intracranially. It is noted by the radiologist that there appears to be an 18 mm soft tissue nodule in the left superior mediastinum which may represent lymphadenopathy however it is incompletely characterized. Recommendation was for CT chest. There is also a left thyroid nodularity measuring up to 14 mm which would need follow-up ultrasound. Patient's high-sensitivity troponin came back at 74, and I went back to ask her again if she was sure she had no chest pain or shortness of breath. She states that the only symptom she may have had was some anxiety when she started to feel her symptoms she states that she was very anxious and her heart was racing. She stated at no time did she have chest pain. Patient will require admission to the hospital, I still have not obtained an SOC consult but I will talk to the hospitalist regarding admission. Patient given 324 mg of aspirin. Impression: 1. Strokelike symptoms 2. Elevated troponin 3. Thyroid nodule 4. Soft tissue nodule superior mediastinum ? Lab Data Labs: Laboratory Results - last 24 hr 08/02/22 08/02/22 08/02/22 00:57 00:58 00:58 WBC 6.1 RBC 4.13 L Hgb 12.4 Hct 38.4 MCV 93.0 MCH 30.0 MCHC 32.3 RDW Std Deviation 48.1 H RDW Coeff of Richard 14.1 Plt Count 206 MPV 11.1 Immature Gran % (Auto) 0.200 Neut % (Auto) 54.0 Lymph % (Auto) 35.8 [place] % (Auto) 8.0 Eos % (Auto) 1.3 Baso % (Auto) 0.7 Absolute Neuts (auto) 3.3 Absolute Lymphs (auto) 2.18 Nucleated RBC % 0 PT 12.8 INR 1.0 APTT 29.0 Sodium Potassium Chloride Carbon Dioxide Anion Gap BUN Creatinine Estim Creat Clear Calc Est GFR (MDRD) Af Amer Est GFR (MDRD) Non-Af BUN/Creatinine Ratio Glucose Calcium Troponin I High Sens POC Glucose 115 H 08/02/22 00:58 WBC RBC Hgb Hct MCV MCH MCHC RDW Std Deviation RDW Coeff of Richard Plt Count MPV Immature Gran % (Auto) Neut % (Auto) Lymph % (Auto) [place] % (Auto) Eos % (Auto) Baso % (Auto) Absolute Neuts (auto) Absolute Lymphs (auto) Nucleated RBC % PT INR APTT Sodium 143 Potassium 3.7 Chloride 110 H Carbon Dioxide 28.0 Anion Gap 5 BUN 20 H Creatinine 0.66 Estim Creat Clear Calc 44.56 Est GFR (MDRD) Af Amer 113 Est GFR (MDRD) Non-Af 93 BUN/Creatinine Ratio 30.2 H Glucose 121 H Calcium 8.7 Troponin I High Sens 74 H POC Glucose Radiography Diagnostic Testing: Clinical Impression(s) from Imaging Studies Brain CT 08/02/22 00:50 IMPRESSION: No intracranial hemorrhage or acute territorial infarction. Findings discussed with Dr. Jewel Puente via phone at 10:26 PM PST on 08/01/2022. N.B. : The above Results were Read Back by Kahlil Stinson MD to Jewel Puente DO, and understanding confirmed on 08/02/2022 01:27:30 (ET). Electronically Signed: Kahlil Stinson MD at 1:29 EST , ADDENDUM: 08/02/22 0136 IMPRESSION: No intracranial hemorrhage or acute territorial infarction. Findings discussed with Dr. Jewel Puente via phone at 10:26 PM PST on 08/01/2022. N.B. : The above Results were Read Back by Kahlil Stinson MD to Jewel Puente DO, and understanding confirmed on 08/02/2022 01:27:30 (ET). Electronically Signed: Kahlil Stinson MD at 1:29 EST , Chest X-Ray 08/02/22 00:50 IMPRESSION: 1. No acute cardiopulmonary disease. 2. Nonspecific fullness of the right hilar/suprahilar region region and right superior mediastinum. Follow-up advised. Electronically Signed: Ruddy Cisse MD at 1:37 EST , Head/Neck CTA 08/02/22 00:53 IMPRESSION: 1. No flow-limiting stenosis, aneurysm or dissection in the head and neck. 2. Nonspecific 18 mm soft tissue nodule in the left superior mediastinum, may represent lymphadenopathy however incompletely characterized. CT chest recommended to further characterize. 3. Left thyroid nodularity measuring up to 14 mm, should be further characterized with nonemergent thyroid ultrasound. Findings reported to Dr. Jewel Puente via phone at 10:39 PM PST on 08/01/2022. N.B. : The above Results were Read Back by Kahlil Stinson MD to Jewel Puente DO, and understanding confirmed on 08/02/2022 01:40:13 (ET). Electronically Signed: Kahlil Stinson MD at 1:44 EST , ADDENDUM: 08/02/22 0151 IMPRESSION: 1. No flow-limiting stenosis, aneurysm or dissection in the head and neck. 2. Nonspecific 18 mm soft tissue nodule in the left superior mediastinum, may represent lymphadenopathy however incompletely characterized. CT chest recommended to further characterize. 3. Left thyroid nodularity measuring up to 14 mm, should be further characterized with nonemergent thyroid ultrasound. Findings reported to Dr. Jewel Puente via phone at 10:39 PM PST on 08/01/2022. N.B. : The above Results were Read Back by Kahlil Stinson MD to Jewel Puente DO, and understanding confirmed on 08/02/2022 01:40:13 (ET). Electronically Signed: Kahlil Stinson MD at 1:44 EST , Discharge Plan Triage Chief Complaint: Numb/Ting ED Provider: Jewel Puente Dx/Rx/DC Orders Prescriptions: No Action atorvastatin 10 mg tablet 10 mg PO QHS albuterol sulfate [ProAir HFA] 90 mcg/actuation HFA aerosol inhaler 1 - 2 puff inhalation Q6H PRN (Reason: shortness of breath or wheezing) Qty: 8.5 3RF acetaminophen 500 MG tablet 1,000 mg PO Q8 Qty: 90 0RF tramadol 50 mg tablet 50 mg PO PRN PRN (Reason: pain) ibuprofen 800 mg tablet 800 mg PO TID PRN (Reason: Pain Or Fever) Qty: 30 1RF diclofenac sodium 1 % gel 4 g TOPICAL .QID PRN (Reason: Pain Or Fever) Qty: 100 2RF ergocalciferol (vitamin D2) 1,250 mcg (50,000 unit) capsule 50,000 unit PO QWEEK Qty: 20 2RF esomeprazole magnesium 40 mg capsule,delayed release(DR/EC) 40 mg PO QDAY Qty: 90 1RF Primary Care Provider: Bean Knapp Referrals: Bean Knapp DO [Primary Care Provider] -
[2022-08-02 01:06] LABS: Absolute Lymphocyte Count 2.18 X10^3/uL (0.83-4.51); Absolute Neutrophil Count 3.3 X10^3/uL (2.0-7.7); Basophil# 0.04 X10^3/uL; Basophil% 0.7 % (0-1); Eosinophil# 0.08 X10^3/uL; Eosinophils% 1.3 % (0-5); Hematocrit 38.4 % (37-47); Hemoglobin 12.4 g/dL (12.0-15.0); Lymphocyte # 2.18 X10^3/ul (0.83-4.51); Lymphocyte % 35.8 % (19-41); Mean Corp Hgb Conc 32.3 g/dL (32-36); Mean Platelet Vol. 11.1 fl (6.2-12.0); Monocyte# 0.49 X10^3/uL; NRBC Flagged by Analyzer 0 % (0-5); Neutrophil # 3.29 X10^3/uL (2.7-7.7); Platelet Count 206 K/mm3 (150-450); RBC Distribution Width CV 14.1 % (11.6-14.6); RBC Distribution Width SD 48.1 fl (35.1-43.9); Red Blood Count 4.13 M/mm3 (4.2-5.4); White Blood Count 6.1 K/mm3 (4.4-11.0)
[2022-08-02 01:15] LABS: Prothrombin Time (Protime)PT. 12.8 SECONDS (11.7-14.9)
--- NOTE | 2022-08-02 01:15 | TELEMED_ITS ---
[facility] has confirmed receipt of a request for visit. This document confirms receipt of the order initiating the consult. To find the results of the consultation, please view the patient's reports for the scanned Telemed Consult.
[2022-08-02 01:16] LABS: Bedside Glucose 115 mg/dL (74-106)
[2022-08-02 01:23] LABS: Anion Gap 5 (5-15); BUN 20 mg/dL (7-18); BUN/Creat Ratio 30.2 RATIO (10-20); Calcium,Total 8.7 mg/dL (8.5-10.1); Chloride 110 mmol/L (98-107); Creatinine, Serum 0.66 mg/dL (0.55-1.02); EST Glomerular Filtration Rate 93 mL/min (>60); Est Glom Filt Rate - Afr Amer 113 mL/min (>60); Estimated Creatinine Clearance 44.56 ml/min; Glucose 121 mg/dL (74-106); Potassium 3.7 mmol/L (3.5-5.1); Sodium Level 143 mmol/L (136-145); Troponin-I HS 74 pg/mL (3.0-54.0)
[2022-08-02] MEDS: Aspirin 81 MG TAB.CHEW 324 MG PO (01:48)
--- NOTE | 2022-08-02 01:57 | HP.PCM_ITS ---
HPI - General General Date of Admission: 08/02/22 Date of Service: 08/02/22 Chief Complaint: L facial and L hand paresthesias, possibly altered speech. HPI Narrative The patient is a 72 y/o F w/ PMHx: Chronic migraines R sided with visual R eye changes, Obesity, Anxiety and Depression, HLD, GERD, Chronic lumbar back pain with radiculopathy/sciatica, Hx Lung Cancer s/p lobectomy considered in remission, Former tobacco use who presents to the [facility] ED on 08/02/22 with history of onset strokelike symptoms reporting that she had been sitting watching television and fell asleep awakening at approximately 10:30 PM reporting that her face felt odd on the left side and was tingling in her left hand was also tingling specifically more so in the left fifth digit at which point she felt it was likely secondary to sleeping wrong and it would go away however despite waiting it continued prompting her to call her son at about 1115 prompting him to go over the house and corporate real estate manager with concerns that she had garbled speech which resolved but given ongoing paresthesias prompted ED evaluation for possible stroke. Did report that when this occurred she became extremely stressed and anxious and did feel palpitations but this subsided when she calmed down and she had no related chest discomfort or dyspnea with this. Of note patient does states she has had similar episodes in the past but never got evaluated during those episodes because it would eventually go away. She denies any prior history of stroke. While in the emergency room upon ED evaluation she does have resolution of the prior reported facial and left hand paresthesias. Given this improvement initial NIH stroke scale 1 for facial palsy as patient is unable to blow her left cheek up but she is able to smile and demonstrates symmetrical teeth on each side with no flattening of any nasolabial fold demonstrated. Patient denies any recent migraines and notes during this entire event she had no headaches or visual changes. Of note patient had recent internal medicine visit 08/01/2022 secondary concerns of easy bruising/bleeding reporting that she had been taking meloxicam and ibuprofen with UTI diagnosis the month prior with urine noted to have microcytic anemia with prior cystoscopy which was unremarkable of note. Urinalysis at that visit with specific gravity elevated 1.025, protein 15, occult blood negative, nitrite negative, leukocyte Estrace negative with no obvious evidence of UTI. Work-up in the ED included T98.3, heart rate 75, BP 144/83, respiratory rate 16, 98% on room air, CBC with WC 6.1, hemoglobin 12.4, platelet 206 without marked shift, coags unremarkable, BMP with chloride 110, BUN/creatinine 20/0.66, glucose 121, troponin 74, CT head with no acute intracranial hemorrhage or territorial infarct, CTA head and neck with no flow-limiting stenosis, aneurysm or dissection in the head or neck however there is a nonspecific 18 mm soft tissue nodule in the left superior mediastinum possibly representing lymphadenopathy however incompletely xavier racterized, left thyroid nodularity also measuring up to 14 mm with recommendation of nonemergent thyroid ultrasound, CXR with noted nonspecific fullness right hilar/suprahilar region as well as right superior mediastinum with otherwise no acute cardiopulmonary findings, EKG with SR without acute ev idence of ischemia. In the ED patient administered FS ASA. [facility] Medical History (Updated 08/02/22 @ 02:[address] Saray Meadows MD) Anxiety Bruises easily GERD (gastroesophageal reflux disease) History of shingles HLD (hyperlipidemia) Lumbar radiculopathy Lung cancer Sciatica Vitamin D deficiency Home Medications acetaminophen 500 mg tablet 1,000 mg PO Q8 #90 tabs 08/10/19 [Rx Last Taken Un known] atorvastatin 10 mg tablet 10 mg PO QHS 06/13/20 [History Last Taken Unknown] diclofenac sodium 1 % topical gel 4 g topical .QID PRN Pain Or Fever #100 grams 07/27/21 [Rx Last Taken Unknown] ibuprofen 800 mg tablet 800 mg PO TID PRN Pain Or Fever #30 tabs 07/27/21 [Rx Last Taken Unknown] ergocalciferol (vitamin D2) 1,250 mcg (50,000 unit) capsule 50,000 unit PO QWEEK supplement #20 caps 01/23/22 [Rx Last Taken Unknown] albuterol sulfate 90 mcg/actuation aerosol inhaler (ProAir HFA) 1 - 2 puff inhalation Q6H PRN shortness of breath or wheezing #8.5 grams 03/10/22 [Rx Last Taken Unknown] esomeprazole magnesium 40 mg capsule,delayed release 40 mg PO QDAY gerd #90 caps 07/10/22 [Rx Last Taken Unknown] tramadol 50 mg tablet 50 mg PO PRN PRN pain 08/02/22 [History Last Taken Unknown] Allergy/AdvReac Type Severity Reaction Status Date / Time Sulfa (Sulfonamide Allergy Intermediate sores in Verified 08/02/22 00:15 Antibiotics) mouth amoxicillin [From Amoxil] AdvReac Intermediate yeast & Verified 08/02/22 00:15 bladder infections Family History (Updated 08/02/22 @ 02:[address] Saray Meadows MD) Aunt Colon cancer Diabetes Mother Thyroid disorder Heart disease Son Hypercholesteremia Grandmother Heart disease Father COPD (chronic obstructive pulmonary disease) Surgical History History of back surgery History of bilateral cataract extraction history of bunionectomy History of section History of colonoscopy History of cystoscopy History of esophagogastroduodenoscopy (EGD) History of lateral meniscus repair of left knee History of lobectomy of lung History of total left knee replacement Social History Smoking Status: Former smoker quit date: 05/26/08 Tobacco: How many years used: 40 alcohol intake: current alcohol intake frequency: holidays/special occasions only substance use type: does not use ROS ROS Narrative Admission Review of Systems: CONSTITUTIONAL: No weight loss, fever, chills, +weakness or fatigue. HEENT: + Left facial paresthesias. Eyes: No visual loss, blurred vision, double vision or yellow sclerae. Ears, Nose, Throat: No hearing loss, sneezing, congestion, runny nose or sore throat. SKIN: No rash or itching, lesions, wounds. CARDIOVASCULAR: + Occasional palpitations, No chest pain, chest pressure or chest discomfort, edema, orthopnea, syncopal events. RESPIRATORY: No shortness of breath, cough or sputum, wheezing, hemoptysis. GASTROINTESTINAL: No anorexia, nausea, vomiting or diarrhea, abdominal pain, melena, BRBPR. GENITOURINARY: No dysuria, frequency, urgency or retention. NEUROLOGICAL: + Left facial and left hand paresthesias. No headache, dizziness, syncope, paralysis, ataxia, focal weakness, change in bowel or bladder control, seizure. MUSCULOSKELETAL: + muscle, back pain, joint pain or stiffness. HEMATOLOGIC: No anemia, bleeding or bruising. LYMPHATICS: No enlarged nodes. No history of splenectomy. PSYCHIATRIC: + history of depression or anxiety. ENDOCRINOLOGIC: No reports of sweating, cold or heat intolerance. No polyuria or polydipsia. ALLERGIES: No history of asthma, hives, eczema or rhinitis. Vital Signs Vital Signs Vital Signs: 08/02/22 00:12 08/02/22 01:30 08/02/22 01:30 Temperature 98.3 F Temperature Source Temporal Pulse Rate 75 66 Respiratory Rate 16 12 Blood Pressure 144/83 H 148/85 H Blood Pressure Mean 103 106 Pulse Ox 98 100 Oxygen Delivery Method Room Air Room Air Room Air 08/02/22 01:30 Temperature Temperature Source Pulse Rate 66 Respiratory Rate 12 Blood Pressure 148/85 H Blood Pressure Mean 106 Pulse Ox 100 Oxygen Delivery Method Room Air Weight Weight: 170 lb 9 oz Body Mass Index (BMI) 29.2 Physical Exam Narrative Physical Examination: General: Awake, alert, oriented x 3 and cooperative, seated upright in the ED bed, no acute distress, anxious. Skin: Normal color, normal turgor, no icterus, no cyanosis. HEENT: AT/NC, EOMI, PERRLA, mildly dry MM, no carotid bruits or JVD noted, ongoing left-sided subjective facial paresthesias. Lungs: Diminished, > bases, moderate effort, no distress, no rales, ronchi or wheezing. Heart: Regular rate and rhythm; no gallop, rub audible. Abdomen: Soft, overweight, NTTP, ND, normal BS, no HSM. Extremities: No cyanosis, clubbing, or edema, resolved prior left upper extremity primarily fifth digit paresthesias. Neurological: Patient awake, alert, oriented as noted, cognitive function intac t; pupils equally reactive to light and accommodation, cranial nerves grossly normal except difficulty filling left cheek, moving all 4 extremities, no focal deficits, strength preserved, finger-nose and [id number] appropriate, equivocal Babinski, resolved prior left facial as well left fifth digit paresthesia. Psychiatric: Affect appears fatigued and anxious especially with discussion of planned CT chest and CXR findings, no acute evidence of depressive feelings. Results Lab / Micro Data Result Diagrams: 08/02/22 00:58 08/02/22 00:58 Labs: Laboratory Results - last 24 hr 08/02/22 00:57: POC Glucose 115 H 08/02/22 00:58: WBC 6.1, RBC 4.13 L, Hgb 12.4, Hct 38.4, MCV 93.0, MCH 30.0, MCHC 32.3, RDW Std Deviation 48.1 H, RDW Coeff of Richard 14.1, Plt Count 206, MPV 11.1, Immature Gran % (Auto) 0.200, Neut % (Auto) 54.0, Lymph % (Auto) 35.8, Moody % (Auto) 8.0, Eos % (Auto) 1.3, Baso % (Auto) 0.7, Absolute Neuts (auto) 3.3, Absolute Lymphs (auto) 2.18, Nucleated RBC % 0 08/02/22 00:58: PT 12.8, INR 1.0, APTT 29.0 08/02/22 00:58: Sodium 143, Potassium 3.7, Chloride 110 H, Carbon Dioxide 28.0, Anion Gap 5, BUN 20 H, Creatinine 0.66, Estim Creat Clear Calc 44.56, Est GFR (MDRD) Af Amer 113, Est GFR (MDRD) Non-Af 93, BUN/Creatinine Ratio 30.2 H, Glucose 121 H, Calcium 8.7, Troponin I High Sens 74 H Radiology Impression Brain CT 08/02/22 00:50 IMPRESSION: No intracranial hemorrhage or acute territorial infarction. Findings discussed with Dr. Jewel Puente via phone at 10:26 PM PST on 08/01/2022. N.B. : The above Results were Read Back by Kahlil Stinson MD to Jewel Puente DO, and understanding confirmed on 08/02/2022 01:27:30 (ET). Electronically Signed: Kahlil Stinson MD at 1:29 EST , ADDENDUM: 08/02/22 0136 IMPRESSION: No intracranial hemorrhage or acute territorial infarction. Findings discussed with Dr. Jewel Puente via phone at 10:26 PM PST on 08/01/2022. N.B. : The above Results were Read Back by Kahlil Stinson MD to Jewel Puente DO, and understanding confirmed on 08/02/2022 01:27:30 (ET). Electronically Signed: Kahlil Stinson MD at 1:29 EST , Chest X-Ray 08/02/22 00:50 IMPRESSION: 1. No acute cardiopulmonary disease. 2. Nonspecific fullness of the right hilar/suprahilar region region and right superior mediastinum. Follow-up advised. Electronically Signed: Ruddy Cisse MD at 1:37 EST , Head/Neck CTA 08/02/22 00:53 IMPRESSION: 1. No flow-limiting stenosis, aneurysm or dissection in the head and neck. 2. Nonspecific 18 mm soft tissue nodule in the left superior mediastinum, may represent lymphadenopathy however incompletely characterized. CT chest recommended to further characterize. 3. Left thyroid nodularity measuring up to 14 mm, should be further characterized with nonemergent thyroid ultrasound. Findings reported to Dr. Jewel Puente via phone at 10:39 PM PST on 08/01/2022. N.B. : The above Results were Read Back by Kahlil Stinson MD to Jewel Puente DO, and understanding confirmed on 08/02/2022 01:40:13 (ET). Electronically Signed: Kahlil Stinson MD at 1:44 EST , ADDENDUM: 08/02/22 0151 IMPRESSION: 1. No flow-limiting stenosis, aneurysm or dissection in the head and neck. 2. Nonspecific 18 mm soft tissue nodule in the left superior mediastinum, may represent lymphadenopathy however incompletely characterized. CT chest recommended to further characterize. 3. Left thyroid nodularity measuring up to 14 mm, should be further characterized with nonemergent thyroid ultrasound. Findings reported to Dr. Jewel Puente via phone at 10:39 PM PST on 08/01/2022. N.B. : The above Results were Read Back by Kahlil Stinson MD to Jewel Puente DO, and understanding confirmed on 08/02/2022 01:40:13 (ET). Electronically Signed: Kahlil Stinson MD at 1:44 EST , Assessment & Plan Assessment/Plan (1) TIA (transient ischemic attack): PLAN: Plan The patient is a 72 y/o F w/ PMHx: Chronic migraines R sided with visual R eye changes, Obesity, Anxiety and Depression, HLD, GERD, Chronic lumbar back pain with radiculopathy/sciatica, Hx Lung Cancer s/p lobectomy considered in remission, Former tobacco use who presents to the [facility] ED on 08/02/22 with history of onset strokelike symptoms reporting that she had been sitting watching television and fell asleep awakening at approximately 10:30 PM reporting that her face felt odd on the left side and was tingling in her left hand was also tingling specifically more so in the left fifth digit at which point she felt it was likely secondary to sleeping wrong and it would go away however despite waiting it continued prompting her to call her son at about 1115 prompting him to go over the house and corporate real estate manager with concerns that she had garbled speech which resolved but given ongoing paresthesias prompted ED evaluation for possible stroke. #1. Left facial and left hand paresthesias, possibly altered speech concerning for CVA/TIA versus complex migraines with history of migraines (less suspected given no headache with event) complicated by incidentally noted #2, #3: Will admit to PCU, will obtain MRI Brain, ECHO, PT/OT/Speech/Nutrition evaluation per protocol. Will allow permissive HTN, will initiate on aspirin therapy, continue home statin w/ AM FLP, fall precautions, TSH/magnesium/hemoglobin A1c requested. Will have low dose PRN ativan for anxiety with MRI per patient preference. #2. Indeterminate cardiac enzyme: EKG with SR without acute evidence of ischemia, CXR with noted nonspecific fullness right hilar/suprahilar region as well as right superior mediastinum with otherwise no acute cardiopulmonary findings, initial trop 74. Will place on a monitored bed to assure no acute myocardial infarction with serial cardiac enzymes and EKGs. Magnesium level requested. FLP in AM. ASA. Patient with no complaints of chest discomfort. Echocardiogram requested as noted #1. Pending further evaluation and work-up #1 May need to consider further cardiac evaluation. #3. History of lung cancer with incidentally noted Nonspecific Fullness R Hi lar/Suprahilar region and R superior mediastium: Unclear specific type of cancer, status post lobectomy, had been considered in remission, CXR with noted nonspecific fullness right hilar/suprahilar region as well as right superior mediastinum with otherwise no acute cardiopulmonary findings as well as CTA head and neck with comment about a nonspecific 18 mm soft tissue nodule in the left superior mediastinum, CT Chest will be obtained once able to utilize contrast again given recent CTA head and neck. #4. Incidental left thyroid nodularity: CTA head and neck with noted left thyroid nodularity measuring up to 14 mm, will obtain TSH and free T4, will need nonemergent thyroid ultrasound outpatient unless notably abnormal function studies. #5. Hyperglycemia, mild: Glucose 121, no diabetic history, hemoglobin A1c requested given acute presentation as noted #1. #6. Mildly elevated BP above goal with no prior history hypertension: BP upon ED presentation only minimally elevated, no prior hypertensive history per report, will continue to closely monitor, as needed agents as needed per stroke protocol #7. Chronic lumbar back pain with radiculopathy/sciatica: Encourage frequent positional changes, fall precautions as noted. #8. Anxiety and depression: Not on any chronic regimen per review of current list, encourage continued outpatient follow-up and counseling as needed. #9. Hyperlipidemia: Continue home statin regimen. AM FLP. #10. GERD: We will continue patient home PPI. #11. Former tobacco use: Encourage continued tobacco cessation. #12. Obesity: Weight loss and lifestyle changes encouraged. #13. DVT prophylaxis: Lovenox. #14. CODE status: Patient REG is her two sons and living will is currently in place. Discussed CODE status at length including difference between FULL code, DNR-CCA and DNR-CC status. Following discussions about the differences in these status, requested Full Code status. Advanced Care Planning Face to Face Time:16 minutes. Admission Evaluation Time spent evaluating chart, patient history, patient evaluation, care planning and discussion with specialists: 75 minutes. Charges/Coding Visit Charges Inpatient E&M: 56921 Init Hosp L3 Procedures Hospitalists Procedures: 02194 Advncd Care Plan 30 Min
[2022-08-02 02:17] LABS: Magnesium 1.8 mg/dL (1.6-2.6)
--- NOTE | 2022-08-02 03:02 | ECHOD_ITS ---
Reason For Study: TIA/CVA Procedure This was a 2D Doppler, Color Flow transthoracic echocardiogram. Exam performed portable in patient room. Left Ventricle Normal LV size. Left ventricular systolic function is normal. The estimated ejection fraction is 65 %. Normal diastololic function. No regional wall motion abnormalities noted. Right Ventricle Normal RV size. Normal systolic function. Atria Normal left atrium. The right atrium is moderately enlarged. Aneurysmal atrial septum. Bubble contrast study is positive for PFO. Mitral Valve The mitral valve is structurally normal. No prolapse or stenosis seen. Trivial mitral valve insufficiency. Tricuspid Valve Normal tricuspid valve. Pulmonary artery systolic pressure is 43 mmHg. Moderately severe (3+) tricuspid valve insufficiency. Aortic Valve Trisinus/trileaflet aortic valve. There is no aortic stenosis. Trivial aortic valve insufficiency. Pulmonic Valve The pulmonic valve is not well visualized. Trivial pulmonic valve insufficiency. Great Vessels Normal aortic root. Pericardium/Pleural No pericardial effusion. Medication Performed a rapid injection of agitated mix of 9 cc saline and 1cc air to assess for atrial septal defect. MMode/2D Measurements & Calculations LVIDd: 4.4 cm IVSd: 0.98 cm Ao root diam: 3.3 cm LVIDs: 2.8 cm LVPWd: 1.1 cm RVDd: 3.8 cm FS: 36.5 % LAV(MOD-bp): 48.6 ml LVAd ap4: 20.0 cm2 SV(MOD-sp4): 28.2 ml LAV(MOD-bp) Indexed: 26.8 ml/m2 LVLd ap4: 6.8 cm LAV(MOD-sp2): 46.8 ml EDV(MOD-sp4): 49.6 ml LAV(MOD-sp4): 40.5 ml EDV(sp4-el): 50.1 ml LVAs ap4: 11.5 cm2 LVLs ap4: 5.5 cm ESV(MOD-sp4): 21.4 ml ESV(sp4-el): 20.5 ml EF(MOD-sp4): 56.8 % EF(sp4-el): 59.1 % SV(sp4-el): 29.6 ml LA A4 area: 18.2 cm2 LA dimension(2D): 3.8 cm RA A4 area: 24.0 cm2 Time Measurements MV dec time: 0.23 sec Doppler Measurements & Calculations MV E max frederick: 69.6 cm/sec Lat Peak E' Frederick: 18.3 cm/sec Med Peak E' Frederick: 10.0 cm/sec MV A max ferderick: 64.2 cm/sec E/E' lat: 3.8 E/E' med: 7.0 MV E/A: 1.1 MV V2 max: 83.2 cm/sec MV dec slope: 316.7 cm/sec2 Ao V2 max: 161.0 cm/sec MV max P.8 mmHg Ao max P.4 mmHg MV V2 mean: 59.0 cm/sec Ao V2 mean: 102.8 cm/sec MV mean P.5 mmHg Ao mean P.0 mmHg MV V2 VTI: 29.7 cm Ao V2 VTI: 33.3 cm AV (velocity ratio): 0.91 AI max frederick: 439.0 cm/sec LV V1 max: 150.8 cm/sec MR max frederick: 548.9 cm/sec AI max P.2 mmHg LV V1 max P.1 mmHg MR max P.5 mmHg AI dec slope: 194.0 cm/sec2 LV V1 mean P.0 mmHg AI P1/2t: 662.9 msec LV V1 mean: 91.4 cm/sec LV V1 VTI: 30.4 cm PA V2 max: 87.2 cm/sec TR max frederick: 298.8 cm/sec PA V2 mean: 67.0 cm/sec TR max P.7 mmHg ECHO/Echo Complete Interpretation Summary The estimated ejection fraction is 65 %. The right atrium is moderately enlarged. Aneurysmal atrial septum. Bubble contrast study is positive for PFO. Pulmonary artery systolic pressure is 43 mmHg. Moderate to severe (3+) tricuspid valve insufficiency. Ordering Physician: Saray Meadows Referring Physician: Kaz Knapp M.D. Performed By: Silvia Hernandez RCS
--- NOTE | 2022-08-02 03:02 | MRI_ITS ---
EXAM: MR HEAD WITHOUT INTRAVENOUS CONTRAST CLINICAL INDICATION: CVA TECHNIQUE: Multiplanar and multisequence MR images of the brain were obtained without intravenous contrast. This report was created using [employer] [place] report generation technology. COMPARISON: CT head without contrast 08/02/2022. FINDINGS: BRAIN AND EXTRA-AXIAL SPACES: Unremarkable. No intra- or extra-axial hemorrhage. No intracranial mass or mass effect. Posterior fossa structures are unremarkable. No hydrocephalus. No diffusion restriction to suspect acute or subacute ischemic infarct. No remote ischemic infarcts. Normal ventricles and cisterns. SELLA: Unremarkable. Normal sella turcica, pituitary gland, infundibular stalk, optic chiasm and hypothalamus. AUDITORY SYSTEM: Unremarkable. The internal auditory canals are patent. BONES/JOINTS: Abnormal nonexpansile T1 hypointense lesion in the left parietal bone overlying the left supramarginal gyrus. This is hyperintense on T2. SINUSES: Unremarkable as visualized. Clear. MASTOID AIR CELLS: Unremarkable as visualized. Clear. ORBITS: Unremarkable as visualized. Both globes, extraocular muscles, optic nerves and retrobulbar fat appear unremarkable. VASCULATURE: Unremarkable as visualized. Normal flow voids in the major intracranial circulation. MRI/Brain without Contrast IMPRESSION: 1. No MRI evidence of acute or subacute ischemic infarct or acute intracranial abnormality. 2. Abnormal nonexpansile T1 hypointense lesion in the left parietal bone is hyperintense on T2. This is overlying the left supramarginal gyrus. This corresponds to the hypodense intradiploic lesion in the left parietal bone seen on CT. Recommend bone scan for further evaluation. Electronically Signed: Edis Randall MD at 12:12 EST ,
[2022-08-02] MEDS: 0.9% Normal Saline 1,000 ML 100 ML IV (03:49)
[2022-08-02] MEDS: 0.9% Saline Lock 10 ML Syringe IV ×2 (03:51→09:58)
[2022-08-02 04:23] LABS: Troponin-I HS 72 pg/mL (3.0-54.0)
[2022-08-02 04:32] LABS: T4 Free Direct 0.92 ng/dL (0.76-1.46); Thyroid Stim Hormone (TSH) 2.47 uIU/mL (0.358-3.74)
[2022-08-02 06:55] LABS: Troponin-I HS 70 pg/mL (3.0-54.0)
--- NOTE | 2022-08-02 07:33 | PCM.HOSP.N ---
Hospitalist Note 72-year-old female admitted for evaluation of strokelike symptoms. She woke up about 10:30 PM on 08/01 with feeling of tingling and funny sensation over her face. Her left hand and left little finger was also tingling.. She came to [facility] as it was persisting. Patient voice was also garbled. Garbled speech has resolved. No facial droop. No prior history of a stroke. CT brain does not show any acute abnormality. CTA head and neck reported no flow-limiting stenosis aneurysm or dissection in the head and neck. Incidental finding of nonspecific 18 mm soft tissue nodule in the left superior mediastinum probably lymphadenopathy although incompletely characterized
[2022-08-02 08:07] LABS: Hemoglobin A1c 5.5 % (3.8-5.6)
[2022-08-02] MEDS: Enoxaparin 40 MG/0.4 ML Syringe SC (09:58)
[2022-08-02] MEDS: Pantoprazole Sodium 40 MG Tablet PO (09:58)
[2022-08-02] MEDS: Aspirin 81 MG TAB.CHEW PO (09:58)
[2022-08-02] MEDS: LORazepam 2 MG/ML Syringe IV (09:59)
--- NOTE | 2022-08-02 10:25 | CASEMGMT ---
Social Work SW spoke w/pt, son in room and pt agreeable to son staying in room while SW spoke w/her. Pt completed PHQ-9 as pt may have had a stroke. Pt scored a 4. She identifies her symptoms as being related to losing her in December. Support offered. SW inquired about bereavement counseling, if pt is interested. Pt states she has thought about it, has thought about calling hospice. Pt open to more information about hospice's bereavement services. SW brought pt brochure, and pt is now leaving for MRI. SW remains available for support to pt and family if needed. WINSTON Orellana
--- NOTE | 2022-08-02 11:30 | DCINST_ITS ---
Discharge Instructions Diet Discharge Diet: No restrictions Activity Discharge Activity: Return to Normal Activity Weight Bearing Status: Weight bearing as tolerated Dressing / Incision Call your doctor if you observe: Fever of 101 or Higher, Coldness, Increased Pain, Numbness or Tingling, Change in Color, Inability to urinate, Inability to have a bowel movement, Using more than 1 pad per hour, Shortness of breath, Dizziness, Fainting spells, Swelling in the ankles, Chest pain, Prolonged hiccupping, Increased palpitations (irregular heartbeat) and Calf discomfort Follow Up Care When: IN 2 WEEKS Test Results: Test results from this visit will be discussed in further detail at your follow- up appointment, if applicable. Discharge Plan Admission Admit Date/Time: 08/02/22 02:00 Primary Reason for Your Visit: Acute stroke ruled out. Attending Provider: Salvador Tyler Primary Care Provider: Bean Knapp Consulting Providers: Saray Meadows Instructions Additional Instructions / Restrictions: Follow with PCP for outpatient CT chest with IV contrast for 18 mm soft tissue nodule for known CTA neck. 2D echo also showed a small PFO and aneurysmal atrial septum. 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 Advised to follow with sales and in home delivery specialist and she agreed. Discharge Orders/Prescriptions Prescriptions: Continued atorvastatin 10 mg tablet 10 mg PO QHS albuterol sulfate [ProAir HFA] 90 mcg/actuation HFA aerosol inhaler 1 - 2 puff inhalation Q6H PRN (Reason: shortness of breath or wheezing) Qty: 8.5 3RF acetaminophen 500 MG tablet 1,000 mg PO Q8 Qty: 90 0RF diclofenac sodium 1 % gel 4 g TOPICAL .QID PRN (Reason: Pain Or Fever) Qty: 100 2RF ergocalciferol (vitamin D2) 1,250 mcg (50,000 unit) capsule 50,000 unit PO QWEEK Qty: 20 2RF esomeprazole magnesium 40 mg capsule,delayed release(DR/EC) 40 mg PO QDAY Qty: 90 1RF Changed ibuprofen 800 mg tablet 600 mg PO TID PRN (Reason: Pain Or Fever) Qty: 30 1RF Referrals / Follow Up: Bean Knapp, [Primary Care Provider] - Within 1 Week (Patient will need CT chest with IV contrast 18 mm nodule partially visualized in the left superior mediastinum and possible lymphadenopathy) Disposition Disposition (needs filled in before D/C Order can be placed): Home, Self Care
--- NOTE | 2022-08-02 12:30 | CASEMGMT ---
The documents scanned into pt's chart are actually her late 's POA and LW forms. SW let pt know, she does think she has forms at home. SW asked her to bring in her own LW/POA as able. Pt states understanding. WINSTON Orellana
--- NOTE | 2022-08-02 13:49 | PCM.DC.SUM ---
Providers Date of Admission: 08/02/22 Date of Discharge: 08/02/22 Primary Care Physician: Dr. Bean Knapp DO Reason For Visit: TIA/CVA, INDETERM TROP Diagnosis Discharge Diagnosis (1) TIA (transient ischemic attack): Status: Acute Code(s): G45.9 - Transient cerebral ischemic attack, unspecified Plan 72-year-old female admitted for evaluation of strokelike symptoms and concern for stroke. She woke up about 10:30 PM on 08/01 with feeling of tingling and funny sensation over her face. Her left hand and left little finger was also tingling.. She came to [facility] as it was persisting. Patient voice was also garbled. Garbled speech has resolved. No facial droop. No prior history of a stroke. 1. Acute stroke ruled out: CT brain does not show any acute abnormality. CTA head and neck reported no flow-limiting stenosis aneurysm or dissection in the head and neck. Incidental finding of nonspecific 18 mm soft tissue nodule in the left superior mediastinum probably lymphadenopathy although incompletely characterized. MRI brain does not show acute or subacute intracranial abnormality. Patient wanted CT chest with IV contrast to further characterize soft tissue nodule but it will not be done until 24 hours of previous CTA head and neck and her admission does not qualify for inpatient therefore I talked to the patient and she agrees. I asked the patient to schedule outpatient CT chest with IV contrast with PCP. She agreed. 2D echo, bubble contrast study is positive for PFO. Aneurysmal atrial septum. Patient advised to follow with PCP. Moderate to severe 3+ TR. 2. Intermittent troponin: Patient troponin is mildly elevated above upper limit. Patient did not had any chest pain or shortness of breath. She had a stress test couple years ago and was negative. 3. Hyperglycemia: A1c 5.5 normal. Diabetes mellitus or prediabetes ruled out. 4. Other multiple comorbidities include anxiety and depression, chronic lumbar back pain with sciatica/radiculopathy, dyslipidemia, GERD former tobacco use and obesity: Patient quit smoking. Patient is discharged home. Discharge medication reconciliation done. Discharge follow-up instructions completed. Discharge process discussed with the patient and all questions were answered to patient's satisfaction. Total time spent, exact 35 minutes on discharge meds reconciliation, examination, coordination of care with nurses and ancillary staff, review of imaging and blood test and discussion with the patient on follow-up instructions. Laboratory Results 08/02/22 00:57: POC Glucose 115 H 08/02/22 00:58: WBC 6.1, RBC 4.13 L, Hgb 12.4, Hct 38.4, MCV 93.0, MCH 30.0, MCHC 32.3, RDW Std Deviation 48.1 H, RDW Coeff of Richard 14.1, Plt Count 206, MPV 11.1, Immature Gran % (Auto) 0.200, Neut % (Auto) 54.0, Lymph % (Auto) 35.8, [place] % (Auto) 8.0, Eos % (Auto) 1.3, Baso % (Auto) 0.7, Absolute Neuts (auto) 3.3, Absolute Lymphs (auto) 2.18, Nucleated RBC % 0 08/02/22 00:58: PT 12.8, INR 1.0, APTT 29.0 08/02/22 00:58: Sodium 143, Potassium 3.7, Chloride 110 H, Carbon Dioxide 28.0, Anion Gap 5, BUN 20 H, Creatinine 0.66, Estim Creat Clear Calc 44.56, Est GFR (MDRD) Af Amer 113, Est GFR (MDRD) Non-Af 93, BUN/Creatinine Ratio 30.2 H, Glucose 121 H, Calcium 8.7, Troponin I High Sens 74 H 08/02/22 00:58: Magnesium 1.8 08/02/22 03:56: TSH 2.47, Free T4 0.92 08/02/22 03:56: Hemoglobin A1c 5.5 08/02/22 03:56: Troponin I High Sens 72 H 08/02/22 06:25: Troponin I High Sens 70 H Clinical Impression(s) from Imaging Studies Brain CT 08/02/22 00:50 IMPRESSION: No intracranial hemorrhage or acute territorial infarction. Findings discussed with Dr. Jewel Puente via phone at 10:26 PM PST on 08/01/2022. N.B. : The above Results were Read Back by Kahlil Stinson MD to Jewel Puente DO, and understanding confirmed on 08/02/2022 01:27:30 (ET). Electronically Signed: Kahlil Stinson MD at 1:29 EST , ADDENDUM: 08/02/22 0136 IMPRESSION: No intracranial hemorrhage or acute territorial infarction. Findings discussed with Dr. Jewel Puente via phone at 10:26 PM PST on 08/01/2022. N.B. : The above Results were Read Back by Kahlil Stinson MD to Jewel Puente DO, and understanding confirmed on 08/02/2022 01:27:30 (ET). Electronically Signed: Kahlil Stinson MD at 1:29 EST , Chest X-Ray 08/02/22 00:50 IMPRESSION: 1. No acute cardiopulmonary disease. 2. Nonspecific fullness of the right hilar/suprahilar region region and right superior mediastinum. Follow-up advised. Electronically Signed: Ruddy Cisse MD at 1:37 EST , Head/Neck CTA 08/02/22 00:53 IMPRESSION: 1. No flow-limiting stenosis, aneurysm or dissection in the head and neck. 2. Nonspecific 18 mm soft tissue nodule in the left superior mediastinum, may represent lymphadenopathy however incompletely characterized. CT chest recommended to further characterize. 3. Left thyroid nodularity measuring up to 14 mm, should be further characterized with nonemergent thyroid ultrasound. Findings reported to Dr. Jewel Puente via phone at 10:39 PM PST on 08/01/2022. N.B. : The above Results were Read Back by Kahlil Stinson MD to Jewel Puente DO, and understanding confirmed on 08/02/2022 01:40:13 (ET). Electronically Signed: Kahlil Stinson MD at 1:44 EST , ADDENDUM: 08/02/22 0151 IMPRESSION: 1. No flow-limiting stenosis, aneurysm or dissection in the head and neck. 2. Nonspecific 18 mm soft tissue nodule in the left superior mediastinum, may represent lymphadenopathy however incompletely characterized. CT chest recommended to further characterize. 3. Left thyroid nodularity measuring up to 14 mm, should be further characterized with nonemergent thyroid ultrasound. Findings reported to Dr. Jewel Puente via phone at 10:39 PM PST on 08/01/2022. N.B. : The above Results were Read Back by Kahlil Stinson MD to Jewel Puente DO, and understanding confirmed on 08/02/2022 01:40:13 (ET). Electronically Signed: Kahlil Stinson MD at 1:44 EST , Brain MRI 08/02/22 03:02 IMPRESSION: 1. No MRI evidence of acute or subacute ischemic infarct or acute intracranial abnormality. 2. Abnormal nonexpansile T1 hypointense lesion in the left parietal bone is hyperintense on T2. This is overlying the left supramarginal gyrus. This corresponds to the hypodense intradiploic lesion in the left parietal bone seen on CT. Recommend bone scan for further evaluation. Electronically Signed: Edis Randall MD at 12:12 EST , Echocardiogram 08/02/22 03:02 Interpretation Summary The estimated ejection fraction is 65 %. The right atrium is moderately enlarged. Aneurysmal atrial septum. Bubble contrast study is positive for PFO. Pulmonary artery systolic pressure is 43 mmHg. Moderate to severe (3+) tricuspid valve insufficiency. Ordering Physician: Saray Meadows Referring Physician: Kaz Knapp M.D. Performed By: Silvia Hernandez RCS Medications at Discharge Home Medications acetaminophen 500 mg tablet 1,000 mg PO Q8 #90 tabs 08/10/19 atorvastatin 10 mg tablet 10 mg PO QHS 06/13/20 diclofenac sodium 1 % topical gel 4 g topical .QID PRN Pain Or Fever #100 grams 07/27/21 ergocalciferol (vitamin D2) 1,250 mcg (50,000 unit) capsule 50,000 unit PO QWEEK supplement #20 caps 01/23/22 albuterol sulfate 90 mcg/actuation aerosol inhaler (ProAir HFA) 1 - 2 puff inhalation Q6H PRN shortness of breath or wheezing #8.5 grams 03/10/22 esomeprazole magnesium 40 mg capsule,delayed release 40 mg PO QDAY gerd #90 caps 07/10/22 ibuprofen 800 mg tablet 600 mg PO TID PRN Pain Or Fever #30 tabs 08/02/22 Physical Exam Narrative Seen in the morning and afternoon. I went over scan and imaging test. Discussed with the patient, her son in the morning and her friend in afternoon. Physical exam General: Alert, Oriented x3, Cooperative HEENT: Atraumatic, PERRLA, EOMI, Normocephalic Oral: No Gingival or Mucosal Lesions/ Ulcerations Neck: Supple, No JVD, Negative Carotid Bruits Lungs: Air entry diminished in bilateral lung bases. No crepitation/rhonchi Cardiovascular: Regular rate, Regular Rhythm, Normal S1, Normal S2, systolic murmur LLSB. Abdomen: Bowel Sounds Present, Soft, Non Tender, Non-Distended : No renal angle tenderness. No suprapubic tenderness. Extremities: No edema, Capillary Refill Less than 3 Seconds Skin: No rashes, No breakdown Musculoskeletal: No Tenderness to Palpation of Joints or Extremities Neurological: Cranial nerves II-XII grossly intact, DTR 2+/4 and Symmetrical, Neuro grossly intact Psych/Mental Status: Mildly anxious. Weight / BMI Weight Weight: 167 lb 1.766 oz Body Mass Index (BMI) 28.6 ABG / Lab / Microbiology Data Result Diagrams: 08/02/22 00:58 08/02/22 00:58 Laboratory: Laboratory Results - last 24 hr 08/02/22 00:57: POC Glucose 115 H 08/02/22 00:58: WBC 6.1, RBC 4.13 L, Hgb 12.4, Hct 38.4, MCV 93.0, MCH 30.0, MCHC 32.3, RDW Std Deviation 48.1 H, RDW Coeff of Richard 14.1, Plt Count 206, MPV 11.1, Immature Gran % (Auto) 0.200, Neut % (Auto) 54.0, Lymph % (Auto) 35.8, [place] % (Auto) 8.0, Eos % (Auto) 1.3, Baso % (Auto) 0.7, Absolute Neuts (auto) 3.3, Absolute Lymphs (auto) 2.18, Nucleated RBC % 0 08/02/22 00:58: PT 12.8, INR 1.0, APTT 29.0 08/02/22 00:58: Sodium 143, Potassium 3.7, Chloride 110 H, Carbon Dioxide 28.0, Anion Gap 5, BUN 20 H, Creatinine 0.66, Estim Creat Clear Calc 44.56, Est GFR (MDRD) Af Amer 113, Est GFR (MDRD) Non-Af 93, BUN/Creatinine Ratio 30.2 H, Glucose 121 H, Calcium 8.7, Troponin I High Sens 74 H 08/02/22 00:58: Magnesium 1.8 08/02/22 03:56: TSH 2.47, Free T4 0.92 08/02/22 03:56: Hemoglobin A1c 5.5 08/02/22 03:56: Troponin I High Sens 72 H 08/02/22 06:25: Troponin I High Sens 70 H Radiography Diagnostic Testing: Radiology Impression Brain CT 08/02/22 00:50 IMPRESSION: No intracranial hemorrhage or acute territorial infarction. Findings discussed with Dr. Jewel Puente via phone at 10:26 PM PST on 08/01/2022. N.B. : The above Results were Read Back by Kahlil Stinson MD to Jewel Puente DO, and understanding confirmed on 08/02/2022 01:27:30 (ET). Electronically Signed: Kahlil Stinson MD at 1:29 EST , ADDENDUM: 08/02/22 0136 IMPRESSION: No intracranial hemorrhage or acute territorial infarction. Findings discussed with Dr. Jewel Puente via phone at 10:26 PM PST on 08/01/2022. N.B. : The above Results were Read Back by Kahlil Stinson MD to Jewel Puente DO, and understanding confirmed on 08/02/2022 01:27:30 (ET). Electronically Signed: Kahlil Stinson MD at 1:29 EST , Chest X-Ray 08/02/22 00:50 IMPRESSION: 1. No acute cardiopulmonary disease. 2. Nonspecific fullness of the right hilar/suprahilar region region and right superior mediastinum. Follow-up advised. Electronically Signed: Ruddy Cisse MD at 1:37 EST , Head/Neck CTA 08/02/22 00:53 IMPRESSION: 1. No flow-limiting stenosis, aneurysm or dissection in the head and neck. 2. Nonspecific 18 mm soft tissue nodule in the left superior mediastinum, may represent lymphadenopathy however incompletely characterized. CT chest recommended to further characterize. 3. Left thyroid nodularity measuring up to 14 mm, should be further characterized with nonemergent thyroid ultrasound. Findings reported to Dr. Jewel Puente via phone at 10:39 PM PST on 08/01/2022. N.B. : The above Results were Read Back by Kahlil Stinson MD to Jewel Puente DO, and understanding confirmed on 08/02/2022 01:40:13 (ET). Electronically Signed: Kahlil Stinson MD at 1:44 EST , ADDENDUM: 08/02/22 0151 IMPRESSION: 1. No flow-limiting stenosis, aneurysm or dissection in the head and neck. 2. Nonspecific 18 mm soft tissue nodule in the left superior mediastinum, may represent lymphadenopathy however incompletely characterized. CT chest recommended to further characterize. 3. Left thyroid nodularity measuring up to 14 mm, should be further characterized with nonemergent thyroid ultrasound. Findings reported to Dr. Jewel Puente via phone at 10:39 PM PST on 08/01/2022. N.B. : The above Results were Read Back by Kahlil Stinson MD to Jewel Puente DO, and understanding confirmed on 08/02/2022 01:40:13 (ET). Electronically Signed: Kahlil Stinson MD at 1:44 EST , Brain MRI 08/02/22 03:02 IMPRESSION: 1. No MRI evidence of acute or subacute ischemic infarct or acute intracranial abnormality. 2. Abnormal nonexpansile T1 hypointense lesion in the left parietal bone is hyperintense on T2. This is overlying the left supramarginal gyrus. This corresponds to the hypodense intradiploic lesion in the left parietal bone seen on CT. Recommend bone scan for further evaluation. Electronically Signed: Edis Randall MD at 12:12 EST , Echocardiogram 08/02/22 03:02 Interpretation Summary The estimated ejection fraction is 65 %. The right atrium is moderately enlarged. Aneurysmal atrial septum. Bubble contrast study is positive for PFO. Pulmonary artery systolic pressure is 43 mmHg. Moderate to severe (3+) tricuspid valve insufficiency. Ordering Physician: Saray Meadows Referring Physician: Kaz Knapp M.D. Performed By: Silvia Hernandez RCS D/C Instructions Discharge Diet: No restrictions Weight Bearing Status: Weight bearing as tolerated Call your doctor if you observe: Fever of 101 or Higher, Coldness, Increased Pain, Numbness or Tingling, Change in Color, Inability to urinate, Inability to have a bowel movement, Using more than 1 pad per hour, Shortness of breath, Dizziness, Fainting spells, Swelling in the ankles, Chest pain, Prolonged hiccupping, Increased palpitations (irregular heartbeat) and Calf discomfort When: IN 2 WEEKS Meaningful Use Info Meaningful Use Diagnoses (Choose all that apply): None applicable Discharge Plan Admission Admit Date/Time: 08/02/22 02:00 Primary Reason for Your Visit: Acute stroke ruled out. Attending Provider: Salvador Tyler Primary Care Provider: Bean Knapp Consulting Providers: Saray Meadows Discharge Orders/Prescriptions Prescriptions: Continued atorvastatin 10 mg tablet 10 mg PO QHS albuterol sulfate [ProAir HFA] 90 mcg/actuation HFA aerosol inhaler 1 - 2 puff inhalation Q6H PRN (Reason: shortness of breath or wheezing) Qty: 8.5 3RF acetaminophen 500 MG tablet 1,000 mg PO Q8 Qty: 90 0RF diclofenac sodium 1 % gel 4 g TOPICAL .QID PRN (Reason: Pain Or Fever) Qty: 100 2RF ergocalciferol (vitamin D2) 1,250 mcg (50,000 unit) capsule 50,000 unit PO QWEEK Qty: 20 2RF esomeprazole magnesium 40 mg capsule,delayed release(DR/EC) 40 mg PO QDAY Qty: 90 1RF Changed ibuprofen 800 mg tablet 600 mg PO TID PRN (Reason: Pain Or Fever) Qty: 30 1RF Referrals / Follow Up: Bean Knapp, DO [Primary Care Provider] - Within 1 Week (Patient will need CT chest with IV contrast 18 mm nodule partially visualized in the left superior mediastinum and possible lymphadenopathy) Disposition Disposition (needs filled in before D/C Order can be placed): Home, Self Care Charges/Coding Visit Charges Inpatient E&M: 21329 Disch Hosp >30min
== END 2022-08-02 15:10 | disposition home or self-care (01) ==
LOC: ED 02:02 → PCU 02:38
PROVIDERS: Admitting Provider Family Medicine; Emergency Provider Student in an Organized Health Care Education/Training Program; PCP Family Medicine; Visit Provider Internal Medicine
DX: G45.9 Transient cerebral ischemic attack, unspecified (principal); G43.709 Chronic migraine without aura, not intractable, without status migrainosus; E04.1 Nontoxic single thyroid nodule; E78.5 Hyperlipidemia, unspecified; G51.0 Bell's palsy; R77.8 Other specified abnormalities of plasma proteins; Z87.891 Personal history of nicotine dependence; R29.701 NIHSS score 1; F41.9 Anxiety disorder, unspecified; Z79.899 Other long term (current) drug therapy; K21.9 Gastro-esophageal reflux disease without esophagitis; E55.9 Vitamin D deficiency, unspecified; F32.A Depression, unspecified; R47.89 Other speech disturbances; R73.9 Hyperglycemia, unspecified
CPT/HCPCS: 36415; 70450; 70496; 70498; 70551; 71045; 80048; 82962; 83036; 83735; 84439; 84443; 84484; 85025; 85610; 85730; 93005; 93306; 94668; 96361; 96372; 96374; 97161; 97166; 97802; 99221; 99285; J7030; Q9967; A4216; G0378

== ENCOUNTER → 2022-08-06 | Outpatient (CLI) | payer MEDICARE, OTHER, SELFPAY ==
--- NOTE | 2022-08-06 14:26 | VDLE_ITS ---
Reason For Study: Swelling RIGHT LEFT GSV is normal. CFV is compressible, spontaneous, phasic, CFV is compressible, spontaneous, phasic, competent, and demonstrates normal competent and demonstrates normal augmentation. augmentation. FV is compressible, spontaneous, phasic, competent and demonstrates normal augmentation. POP V is compressible, spontaneous, phasic, competent and demonstrates normal augmentation. T/P Trunk is compressible. PTV is compressible. RT PerV is compressible. Nonvascularized structure noted in the right popliteal fossa. Procedure This is a venous duplex using B-mode, color flow and spectral Doppler. Exam performed in department. A preliminary report was called and/or faxed to Dr. Bauman. VL/Venous Duplex US, Unilateral Interpretation Summary There is no evidence of right lower extremity deep vein thrombosis. Right great saphenous vein appears patent and compressible segmentally. Right popliteal fossa nonvascular heterogenous structure longer than cannot be imaged on a single ultrasound screen. Clinical correlation would be appropriate. Normal flow patterns left common femoral vein Ordering Physician: Marcus Champion Referring Physician: Kaz Knapp M.D. Performed By: Vera Cruz RVT
== END | disposition home or self-care (01) ==
PROVIDERS: PCP Family Medicine; Referring Provider Orthopaedic Surgery; Visit Provider Orthopaedic Surgery
DX: R22.41 Localized swelling, mass and lump, right lower limb (principal)
CPT/HCPCS: 93971

== ENCOUNTER → 2022-08-07 | Outpatient (CLI) | payer MEDICARE, OTHER, SELFPAY ==
--- NOTE | 2022-08-07 18:02 | CT_ITS ---
INDICATION: Chest pain, abnormal chest x-ray EXAMINATION: CT CHEST WITH CONTRAST - CT Chest W/ Contrast Injection TECHNIQUE: Helically acquired images were obtained of the chest following IV contrast. A radiation dose optimization technique was used for this scan. IV Contrast dosage and agent: 100 mL Isovue 300 contrast COMPARISON: Chest x-ray from 08/02/2022 FINDINGS: The previously noted chest x-ray suggested some right hilar fullness. LUNGS, PLEURA AND LARGE AIRWAYS: Lung windows show underlying emphysema with bleb formation throughout both lung otero and a linear band of scarring in the lingula. There is no organized infiltrate, effusion, or suspicious noncalcified mass or nodule. The hilar fullness/suspect may have been related to summation of vascular shadows. No pleural effusion or thickening. No pneumothorax. THYROID: No thyroid lesions. HEART AND PERICARDIUM: Heart size is normal. No pericardial effusion. No coronary artery calcifications noted VESSELS: Thoracic aorta is not dilated. No aortic dissection. No obvious central pulmonary embolism although this study was not performed with the pulmonary embolism protocol. MEDIASTINUM AND MARCUS: No mediastinal or hilar adenopathy. There is a large retrocardiac hiatal hernia UPPER ABDOMEN: No acute pathology. BONES: Multilevel degenerative bony changes noted. CT/Chest WITH Contrast IMPRESSION: Underlying emphysema with bleb formation throughout both lung otero and a linear band of scarring in the lingula. There is no superimposed infiltrate, effusion, or suspicious noncalcified mass or nodule. I suspect that the right hilar fullness noted on recent chest x-ray is likely a summation of vascular shadows in the right hilum No suspicious adenopathy Degenerative bony changes Electronically Signed: Yobany Israel MD at 9:48 EDT ,
== END | disposition home or self-care (01) ==
LOC: CT 17:51
PROVIDERS: PCP Family Medicine; Visit Provider Family Medicine
DX: R93.89 Abnormal findings on diagnostic imaging of other specified body structures (principal)
CPT/HCPCS: 71260; Q9967

== ENCOUNTER → 2022-08-19 | Outpatient (CLI) | payer MEDICARE, OTHER, SELFPAY ==
--- NOTE | 2022-08-19 12:38 | MRI_ITS ---
EXAM: MR RIGHT LOWER EXTREMITY WITHOUT INTRAVENOUS CONTRAST, FOOT CLINICAL INDICATION: METATARSALGIA -- TITANIUM KELLY IMPLANT 1ST MPJ PAIN THROUGHOUT FOREFOOT AND LESSER MT TECHNIQUE: Multiplanar and multisequence MR images of the right foot without intravenous contrast. This report was created using [email or web address] report generation technology. COMPARISON: None. FINDINGS: LIGAMENTS: Unremarkable. TENDONS: Unremarkable. MUSCLES: Unremarkable. No edema or myositis. FLUID: Unremarkable. No organized fluid collections. SINUS TARSI: Sinus Tarsi appears normal. PLANTAR FASCIA: Unremarkable. Intact. BONES/JOINTS: Extensive susceptibility artifact related to hardware at the first metatarsophalangeal joint limits assessment of the adjacent tissues. Nonspecific but probably degenerative bone marrow edema at the anterior aspect of the cuboid. Mild degenerative changes at the interphalangeal joints. Normal forefoot alignment. No fracture. No significant joint effusion. No other concerning bone marrow signal alterations. OTHER SOFT TISSUES: Unremarkable. MRI/Lower Ext/No Jt/w/o IMPRESSION: 1. Extensive susceptibility artifact related to hardware at the first metatarsophalangeal joint limits assessment of the adjacent tissues. 2. Nonspecific but probably degenerative bone marrow edema at the anterior aspect of the cuboid. 3. Mild degenerative changes at the interphalangeal joints. Electronically Signed: Ruddy Cisse MD at 22:58 EDT ,
== END | disposition home or self-care (01) ==
LOC: MRI 12:30
PROVIDERS: PCP Family Medicine; Referring Provider Podiatrist Foot & Ankle Surgery; Visit Provider Podiatrist Foot & Ankle Surgery
DX: M77.41 Metatarsalgia, right foot (principal)
CPT/HCPCS: 73718

== ENCOUNTER 2022-08-21 18:40 | Emergency (ER) | payer MEDICARE, OTHER, SELFPAY ==
[2022-08-21 18:41] VITALS: PULSE 119; RESP 18; TEMP 36.1; O2SAT 97; BMI 24.2
[2022-08-21 18:51] VITALS: BP 112/79
--- NOTE | 2022-08-21 18:52 | EDS_ITS ---
HPI History of Present Illness Chief Complaint: Allergic Reaction Informant: patient Onset/Context/Timing Onset: Today Narrative Narrative: Patient presents secondary to allergic reaction. She states she took Azo e arlier today because of a urinary tract infection. She took a tab of nitrofurantoin today and generic brand Tylenol at 6 PM and immediately after taking these medications developed redness and itching diffusely over her body. She states that she has had both of these medications before and never had a problem. She denies shortness of breath currently. She states she was short of breath earlier but family states that she was panicking at the time. She is had no problems with secretions. She did not take anything for her reaction prior to arrival. [facility] Medical History Anxiety Bruises easily GERD (gastroesophageal reflux disease) History of shingles HLD (hyperlipidemia) Lumbar radiculopathy Lung cancer Sciatica Vitamin D deficiency Home Medications acetaminophen 500 mg tablet 1,000 mg PO Q8 #90 tabs 08/10/19 [Rx Last Taken Unknown] atorvastatin 10 mg tablet 10 mg PO QHS cholesterol 06/13/20 [History Last Taken Unknown] diclofenac sodium 1 % topical gel 4 g topical .QID PRN Pain Or Fever #100 grams 07/27/21 [Rx Last Taken Unknown] ergocalciferol (vitamin D2) 1,250 mcg (50,000 unit) capsule 50,000 unit PO QWEEK supplement #20 caps 01/23/22 [Rx Last Taken Unknown] albuterol sulfate 90 mcg/actuation aerosol inhaler (ProAir HFA) 1 - 2 puff inhalation Q6H PRN shortness of breath or wheezing #8.5 grams 03/10/22 [Rx Last Taken Unknown] esomeprazole magnesium 40 mg capsule,delayed release 40 mg PO QDAY gerd #90 caps 07/10/22 [Rx Last Taken Unknown] ibuprofen 800 mg tablet 600 mg PO TID PRN Pain Or Fever #30 tabs 08/02/22 [Rx Last Taken Unknown] cephalexin 500 mg capsule 500 mg PO Q12 #14 CAPSULES 08/21/22 [Rx Last Taken Unknown] nitrofurantoin monohydrate/macrocrystals 100 mg capsule (Macrobid) 100 mg PO Q12H 7 days #14 caps 08/21/22 [Rx Last Taken Unknown] prednisone 20 mg tablet 40 mg PO DAILY #8 tabs 08/21/22 [Rx Last Taken Unknown] Allergy/AdvReac Type Severity Reaction Status Date / Time Sulfa (Sulfonamide Allergy Intermediate sores in Verified 08/21/22 18:46 Antibiotics) mouth amoxicillin [From Amoxil] AdvReac Intermediate yeast & Verified 08/21/22 18:46 bladder infections Family History Aunt Colon cancer Diabetes Mother Thyroid disorder Heart disease Son Hypercholesteremia Grandmother Heart disease Father COPD (chronic obstructive pulmonary disease) Surgical History History of back surgery History of bilateral cataract extraction history of bunionectomy History of section History of colonoscopy History of cystoscopy History of esophagogastroduodenoscopy (EGD) History of lateral meniscus repair of left knee History of lobectomy of lung History of total left knee replacement Social History Smoking Status: Former smoker quit date: 05/26/08 Tobacco: How many years used: 40 alcohol intake: current alcohol intake frequency: holidays/special occasions only substance use type: does not use ROS ROS ED Constitutional Constitutional ED: Denies chills or fever(s) Eyes Eyes: Denies change in vision or discharge from eye(s) ENT ENT ED: Denies discharge from eye(s), rhinorrhea or sore throat Cardiovascular Cardiovascular: Denies chest pain or palpitations Respiratory/Chest Respiratory/Chest: Denies cough or dyspnea Gastrointestinal Gastrointestinal: Denies abdominal pain, nausea or vomiting Genitourinary Genitourinary ED: Denies dysuria Musculoskeletal Musculoskeletal: Denies back pain or extremity pain Integumentary Reports other Details: Mild erythema and itching. ; Denies Abrasions or rash Neurologic Neurologic: Denies headache(s) or weakness Psychiatric Psychiatric: Reports anxiety; Denies depression Allergic/Immunologic Allergic/Immunologic ED: Denies lip swelling or urticaria EXAM Physical Exam Narrative Exam Narrative: Patient tolerating secretions well and speaks with a strong voice. Const Vital Signs: 08/21/22 18:41 08/21/22 18:51 08/21/22 22:04 Temperature 97 F L Temperature Source Temporal Pulse Rate 119 H Respiratory Rate 18 18 Blood Pressure 112/79 106/57 L Blood Pressure Mean 90 73 Pulse Ox 97 Oxygen Delivery Method Room Air Room Air Positive well nourished and well developed General Appearance ED: well developed HEENT Reports normocephalic and head/scalp atraumatic Eyes PERRL and EOMs intact bilaterally Neck supple Chest Wall inspection of chest normal and palpation of chest normal Resp normal respiratory effort and clear to auscultation bilaterally Cardio regular rate and regular rhythm GI normal to inspection, nondistended, normoactive bowel sounds Palpation: soft Extremity Extremity Narrative: Generalized erythema to the extremities. No urticarial lesions noted. Neuro oriented x3 and no sensory deficits noted Sensorium / Orientation: alert Motor Exam: strength 5/5 throughout Psych mental status grossly normal MDM MDM MDM Narrative Medical decision making narrative: Patient is given IV Solu-Medrol, Benadryl, and Pepcid. After 1 hour patient is reevaluated. She states she is still itching but it is slightly improved. At the time she is given p.o. Benadryl and a liter of IV fluids. At this time patient reports that she is not itching any longer. She still has some mild erythema noted to the volar aspect of her forearms. There is no urticarial lesion. Patient was on nitrofurantoin in May states she had no problems with it. We are unable to verify if it was the same brand as there may have been a filler or a dye that she is reacting to. She is confident that she has taken this exact type of Tylenol before. I will switch her from nitrofurantoin to Keflex. A culture is already pending. I will also write her for 4 additional days of steroids. She will get Benadryl [id number]. Discharge Plan Triage Chief Complaint: Allergic Reaction ED Provider: Rosi Garcia Dx/Rx/DC Orders Clinical Impression: Allergic reaction Instructions: ED ADVERSE DRUG REACTION Allergic Prescriptions: New cephalexin 500 mg capsule 500 mg PO Q12 Qty: 14 0RF prednisone 20 mg tablet 40 mg PO DAILY Qty: 8 0RF No Action atorvastatin 10 mg tablet 10 mg PO QHS albuterol sulfate [ProAir HFA] 90 mcg/actuation HFA aerosol inhaler 1 - 2 puff inhalation Q6H PRN (Reason: shortness of breath or wheezing) Qty: 8.5 3RF nitrofurantoin monohyd/m-cryst [Macrobid] 100 mg capsule 100 mg PO Q12H 7 Days Qty: 14 0RF Rx Instructions: must administer with a meal/food acetaminophen 500 MG tablet 1,000 mg PO Q8 Qty: 90 0RF ibuprofen 800 mg tablet 600 mg PO TID PRN (Reason: Pain Or Fever) Qty: 30 1RF diclofenac sodium 1 % gel 4 g TOPICAL .QID PRN (Reason: Pain Or Fever) Qty: 100 2RF ergocalciferol (vitamin D2) 1,250 mcg (50,000 unit) capsule 50,000 unit PO QWEEK Qty: 20 2RF esomeprazole magnesium 40 mg capsule,delayed release(DR/EC) 40 mg PO QDAY Qty: 90 1RF Primary Care Provider: Bean Knapp Referrals: Bean Knapp, [Primary Care Provider] - 1 Week Disposition Disposition: Home, Self Care
[2022-08-21] MEDS: MethylPREDNISolone 125 MG/2 ML Vial IV (19:04)
[2022-08-21] MEDS: DiphenhydrAMINE 50 MG/ML Syringe 25 MG IV (19:04)
[2022-08-21] MEDS: Famotidine 200 MG/20 ML MDV 20 MG in 0.9% Normal Saline (Pres. free 8 ML 300 MG IV (19:29)
[2022-08-21] MEDS: DiphenhydrAMINE 25 MG Capsule 50 MG PO (20:31)
[2022-08-21] MEDS: 0.9% Normal Saline 1,000 ML 999 ML IV (20:38)
[2022-08-21 22:04] VITALS: BP 106/57; RESP 18
[2022-08-21 22:20] VITALS: BP 136/88; O2SAT 97
== END 2022-08-21 22:34 | disposition home or self-care (01) ==
PROVIDERS: Emergency Provider Emergency Medicine; PCP Family Medicine; Visit Provider Emergency Medicine
DX: T78.40XA Allergy, unspecified, initial encounter (principal); Z87.891 Personal history of nicotine dependence; E78.5 Hyperlipidemia, unspecified; R35.0 Frequency of micturition; N39.0 Urinary tract infection, site not specified; Z79.52 Long term (current) use of systemic steroids; X58.XXXA Exposure to other specified factors, initial encounter
CPT/HCPCS: 81001; 87086; 87088; 96361; 96374; 96375; 99283; J7030; A4216; J3490

== ENCOUNTER → 2022-08-21 | Outpatient (CLI) | payer MEDICARE, OTHER, SELFPAY ==
[2022-08-21 13:03] LABS: Mucous, Urine 0 SEEN /hpf (<or=2+); Red Blood Cells-Urine 0 SEEN /hpf (0-5); Squamous Epithelial Cells - UA 0 SEEN /hpf (5-10)
[2022-08-21 13:24] LABS: Color, Urine Yellow (Yellow); Glucose, Dipstick Normal (Normal); Ketone-Dipstick Negative (Negative); Leukocyte Esterase-Dipstick 500 /ul (Negative); Nitrite-Dipstick Negative (Negative); Occult Blood-Urine 250 /ul (Negative); Protein-Dipstick 100 mg/dl (Negative); Specific Gravity, Urine 1.025 (1.002-1.030); Urine Clarity Sl. Cloudy (Clear); Urine Urobilinogen 1 mg/dl (Normal)
[2022-08-21 13:31] LABS: Urine Bilirubin Dipstick 1 mg/dL (Negative)
[2022-08-21 13:34] LABS: Bacteria 2+ /hpf (None Seen); White Blood Cells >100 SEEN /hpf (0-5)
== END | disposition home or self-care (01) ==
LOC: LABSPEC 12:30
PROVIDERS: PCP Family Medicine; Referring Provider Physician Assistant; Visit Provider Physician Assistant
DX: R35.0 Frequency of micturition (principal)
CPT/HCPCS: 81001; 87086

== ENCOUNTER → 2022-08-28 | Outpatient (CLI) | payer MEDICARE, OTHER, SELFPAY ==
--- NOTE | 2022-08-28 09:00 | STRESSREP ---
Stress Test Report Date: 08/28/2022 Procedure: Exercise tolerance test/imaging study Indications: Dyspnea Consent: Per the patient Procedure: The patient exercised on a Gómez protocol for 6 minutes achieving a peak heart rate of 139 bpm (93% predicted maximal heart rate) with a peak blood pressure 148/60 mmHg and a peak MET capacity of 7.0 METs. The baseline ECG demonstrated normal sinus rhythm. The peak exercise ECG demonstrated no ischemic changes. There were no cardiac dysrhythmias pretest, during exercise, or recovery. The functional capacity was considered suboptimal. There was no complaint of chest discomfort during exercise or recovery. The examination was discontinued secondary to target heart rate being achieved. The patient was injected with 11.9 mCi of technetium 99m Cardiolite and subsequently rest SPECT Cardiolite nuclear imaging was obtained in the horizontal long, vertical long, and short axis views. Post-exercise, the patient was injected with 34.7 mCi of technetium 99m Cardiolite and subsequently stress SPECT Cardiolite nuclear imaging was obtained in the horizontal long, vertical long, and short axis views. A gated Cardiolite study at peak stress was obtained. Rest and stress SPECT Cardiolite nuclear imaging status post realignment, normalization, and attenuation correction, demonstrates the appearance of relative uniform tracer uptake and myocardial perfusion appearing within normal limits. There is end systolic thickening and brightening. The gated Cardiolite study demonstrates myocardial thickening and inward wall motion. The reported LVEF is 77%. Impression: 1. Technically adequate (percent predicted maximal heart rate greater than 85%) exercise tolerance test 2. Peak exercise ECG shows no ischemic change 3. There were no cardiac dysrhythmias pretest, during exercise, or recovery 4. Rest and stress SPECT Cardiolite nuclear imaging demonstrate no fixed or reversible perfusion defect. 5. The gated Cardiolite study reports an LVEF of 77%. This note was generated with [employer] software. It may contain incorrect words, spelling, and punctuation that were not noted in checking the note before signing.
== END | disposition home or self-care (01) ==
LOC: CVS 06:33
PROVIDERS: PCP Family Medicine; Referring Provider Nurse Practitioner Family; Visit Provider Nurse Practitioner Family
DX: R77.8 Other specified abnormalities of plasma proteins (principal); G45.9 Transient cerebral ischemic attack, unspecified; I25.84 Coronary atherosclerosis due to calcified coronary lesion; I34.1 Nonrheumatic mitral (valve) prolapse; R00.2 Palpitations; R06.02 Shortness of breath
CPT/HCPCS: 78452; 93017; A9500; A4216

== ENCOUNTER → 2022-10-09 | Outpatient (CLI) | payer MEDICARE, OTHER, SELFPAY ==
[2022-10-09 18:19] LABS: Absolute Lymphocyte Count 1.25 X10^3/uL (0.83-4.51); Absolute Neutrophil Count 4.4 X10^3/uL (2.0-7.7); Basophil# 0.02 X10^3/uL; Basophil% 0.3 % (0-1); Eosinophil# 0.06 X10^3/uL; Hematocrit 39.3 % (37-47); Hemoglobin 12.9 g/dL (12.0-15.0); Lymphocyte # 1.25 X10^3/ul (0.83-4.51); Lymphocyte % 20.2 % (19-41); Mean Corp Hgb Conc 32.8 g/dL (32-36); Mean Corpuscular Hgb 30.1 pg (27.0-32.0); Mean Corpuscular Volume 91.8 fL (81-99); Mean Platelet Vol. 11.6 fl (6.2-12.0); Monocyte% 6.5 % (0-10); NRBC Flagged by Analyzer 0 % (0-5); Neutrophil # 4.44 X10^3/uL (2.7-7.7); Neutrophil % 71.7 % (47-70); Platelet Count 238 K/mm3 (150-450); RBC Distribution Width CV 13.5 % (11.6-14.6); RBC Distribution Width SD 45.1 fl (35.1-43.9); Red Blood Count 4.28 M/mm3 (4.2-5.4); White Blood Count 6.2 K/mm3 (4.4-11.0)
[2022-10-09 18:33] LABS: Erythrocyte Sedimentation Rate 6 mm/hr (0-30)
[2022-10-09 18:36] LABS: ALB/GLOB Ratio 1.1 RATIO (0.9-2.4); AST(SGOT) 20 U/L (15-37); Alanine Aminotransfer ALT/SGPT 25 U/L (13-56); Albumin, Serum 3.5 g/dL (3.2-5.0); Alkaline Phosphatase 123 U/L (45-117); Anion Gap 7 (5-15); BUN 16 mg/dL (7-18); BUN/Creat Ratio 27.4 RATIO (10-20); CRP < 2.90 mg/L (0.0-3.0); Calcium,Total 8.7 mg/dL (8.5-10.1); Chloride 109 mmol/L (98-107); Creatinine, Serum 0.58 mg/dL (0.55-1.02); EST Glomerular Filtration Rate 108 mL/min (>60); Est Glom Filt Rate - Afr Amer 130 mL/min (>60); Globulin 3.2 g/dL (2.2-4.2); Glucose 117 mg/dL (74-106); Potassium 3.5 mmol/L (3.5-5.1); Protein, Total 6.7 g/dL (6.4-8.2); Sodium Level 141 mmol/L (136-145)
[2022-10-09 19:12] LABS: Hepatitis B Surface Antibody Non-Reactive; Hepatitis B Surface Antigen Non-Reactive (Nonreactive); Hepatitis C Antibody Non-Reactive (Nonreactive)
[2022-10-11 13:08] LABS: CCP IgG Antibodies 2 units (0-19)
== END | disposition home or self-care (01) ==
LOC: MTLAB 15:29
PROVIDERS: PCP Family Medicine; Referring Provider Internal Medicine Rheumatology; Visit Provider Internal Medicine Rheumatology
DX: M06.4 Inflammatory polyarthropathy (principal); M17.0 Bilateral primary osteoarthritis of knee
CPT/HCPCS: 36415; 80053; 85025; 85652; 86140; 86200; 86431; 86706; 86803; 87340

== ENCOUNTER 2022-10-30 22:16 | Emergency (ER) | payer MEDICARE, OTHER, SELFPAY ==
[2022-10-30 22:17] VITALS: BP 180/107; PULSE 127; RESP 16; TEMP 36.4; O2SAT 98; BMI 30.5
--- NOTE | 2022-10-30 22:19 | EX.ED.DYSGE1 ---
HPI <Dr. Reagan Kim MD - Last Filed: 11/01/22 14:51> History of Present Illness Chief Complaint: Allergic Reaction Detail of Chief Complaint: Generalized allergic reaction Informant: patient Onset/Context/Timing Onset: Hours (1/2-hour prior to presentation) Context: Sudden Onset Timing: Continuous Quality: Puritic erythematous generalized rash Location: Generalized Current Severity: Moderate Maximum Severity: Moderate Worsened by: Possible allergic reaction to nitrofurantoin Relieved by: Nothing Associated Symptoms Associated Symptoms: Slight shortness of breath Narrative Narrative: Patient is a 72-year-old woman with history of recent urinary tract infection, bronchospasm, hypercholesterolemia who presents with generalized erythematous pruritic rash that started 1/2-hour prior to presentation. This started shortly after taking nitrofurantoin. She denies swelling of her lips, tongue or throat. She does report slight shortness of breath. She denies chest discomfort. She denies nausea or vomiting. She denies orthostatic symptoms. She denies prior allergic reaction. She states she took 25 mg of Benadryl at home with no improvement. Prior similar symptoms: No Recent Illness/Hospitalization: No PFSH <Dr. Reagan Kim MD - Last Filed: 11/01/22 14:51> [facility] Medical History Anxiety Bruises easily GERD (gastroesophageal reflux disease) History of shingles HLD (hyperlipidemia) Lumbar radiculopathy Lung cancer Sciatica Vitamin D deficiency Home Medications acetaminophen 500 mg tablet 1,000 mg PO Q8 #90 tabs 08/10/19 [Rx Last Taken Unknown] atorvastatin 10 mg tablet 10 mg PO QHS cholesterol 06/13/20 [History Last Taken Unknown] diclofenac sodium 1 % topical gel 4 g topical .QID PRN Pain Or Fever #100 grams 07/27/21 [Rx Last Taken Unknown] ergocalciferol (vitamin D2) 1,250 mcg (50,000 unit) capsule 50,000 unit PO QWEEK supplement #20 caps 01/23/22 [Rx Last Taken Unknown] albuterol sulfate 90 mcg/actuation aerosol inhaler (ProAir HFA) 1 - 2 puff inhalation Q6H PRN shortness of breath or wheezing #8.5 grams 03/10/22 [Rx Last Taken Unknown] esomeprazole magnesium 40 mg capsule,delayed release 40 mg PO QDAY gerd #90 caps 07/10/22 [Rx Last Taken Unknown] ibuprofen 800 mg tablet 600 mg PO TID PRN Pain Or Fever #30 tabs 08/02/22 [Rx Last Taken Unknown] cephalexin 500 mg capsule 500 mg PO Q12 #14 CAPSULES 08/21/22 [Rx Last Taken Unknown] prednisone 20 mg tablet 40 mg PO DAILY #8 tabs 08/21/22 [Rx Last Taken Unknown] cephalexin 500 mg capsule 500 mg PO TID 7 days #21 caps 10/31/22 [Rx Last Taken Unknown] famotidine 20 mg tablet (Pepcid) 20 mg PO BID 4 days #8 tabs 10/31/22 [Rx Last Taken Unknown] prednisone 20 mg tablet 40 mg PO DAILY 4 days #8 tabs 10/31/22 [Rx Last Taken Unknown] Allergy/AdvReac Type Severity Reaction Status Date / Time Sulfa (Sulfonamide Allergy Intermediate sores in Verified 08/21/22 18:46 Antibiotics) mouth amoxicillin [From Amoxil] AdvReac Intermediate yeast & Verified 08/21/22 18:46 bladder infections Nitrofurantoin Allergy Intermediate Rash Uncoded 10/30/22 23:22 Family History Aunt Colon cancer Diabetes Mother Thyroid disorder Heart disease Son Hypercholesteremia Grandmother Heart disease Father COPD (chronic obstructive pulmonary disease) Surgical History History of back surgery History of bilateral cataract extraction history of bunionectomy History of section History of colonoscopy History of cystoscopy History of esophagogastroduodenoscopy (EGD) History of lateral meniscus repair of left knee History of lobectomy of lung History of total left knee replacement Social History Smoking Status: Former smoker quit date: 05/26/08 Tobacco: How many years used: 40 alcohol intake: current alcohol intake frequency: holidays/special occasions only substance use type: does not use ROS <Dr. Reagan Kim MD - Last Filed: 11/01/22 14:51> ROS ED Constitutional Constitutional ED: Denies chills, fever(s), subjective or sweats Eyes Eyes: Denies blurry vision, change in vision or diplopia ENT ENT ED: Denies ear pain, rhinorrhea or sore throat Cardiovascular Cardiovascular: Denies chest pain, orthopnea, palpitations or paroxysmal nocturnal dyspnea Respiratory/Chest Respiratory/Chest: Reports dyspnea; Denies cough, dyspnea on exertion, orthopnea or paroxysmal nocturnal dyspnea Gastrointestinal Gastrointestinal: Denies abdominal pain, nausea or vomiting Musculoskeletal Musculoskeletal: Denies arthralgias or myalgias Integumentary Reports rash Neurologic Neurologic: Denies paresthesias or weakness Psychiatric Psychiatric: Reports anxiety Endocrine Endocrinology: Denies cold intolerance or heat intolerance Hematologic/Lymphatic Hematologic/Lymphatic: Reports systems reviewed and no addt'l complaints, except as documented EXAM <Dr. Reagan Kim MD - Last Filed: 11/01/22 14:51> Physical Exam Const Vital Signs: 10/30/22 22:17 10/30/22 23:26 Temperature 97.5 F L Temperature Source Temporal Pulse Rate 127 H 69 Respiratory Rate 16 15 Blood Pressure 180/107 H 110/94 H Blood Pressure Mean 131 99 Pulse Ox 98 99 Oxygen Delivery Method Room Air Room Air Positive well nourished and well developed Constitutional Narrative: Patient is erythematous and itching. She appears slightly anxious. General Appearance ED: well developed; Negative for NAD or pallor HEENT Reports moist mucous membranes HEENT Narrative: Head is atraumatic and normocephalic. Ears are normal. Nares are patent. Posterior pharynx is unremarkable. Uvula is midline. There is no evidence of angioedema. Eyes PERRL and EOMs intact bilaterally General Eye ED: Negative for pale conjunctiva or scleral icterus Neck no lymphadenopathy, supple and no JVD Neck Narrative: Trachea is midline. There is aspiratory or expiratory stridor. Resp normal respiratory effort and clear to auscultation bilaterally Cardio regular rhythm, S1 normal heart sound, S2 normal heart sound and no murmurs Rate: tachycardic GI normal to inspection, nondistended, normoactive bowel sounds, non-tender and non-distended Back/Spine no CVA tenderness Extremity normal to inspection General Extremety ED: Negative for edema or tenderness General Extremity: Negative for edema Neuro oriented x3, CN's II-XII intact bilaterally and no sensory deficits noted Sensorium / Orientation: alert Psych Mood & Affect: anxious Skin no wounds Skin Narrative: Generalized erythematous rash that is confluent. General Skin Exam: Negative for jaundice or pallor <Dr. Ruddy Faye DO - Last Filed: 10/31/22 00:22> Physical Exam Const Vital Signs: 10/30/22 22:17 10/30/22 23:26 Temperature 97.5 F L Temperature Source Temporal Pulse Rate 127 H 69 Respiratory Rate 16 15 Blood Pressure 180/107 H 110/94 H Blood Pressure Mean 131 99 Pulse Ox 98 99 Oxygen Delivery Method Room Air Room Air MDM <Dr. Reagan Kim MD - Last Filed: 11/01/22 14:51> [facility] MDM Narrative Medical decision making narrative: Patient with a generalized allergic reaction. Presently there is no evidence of angioedema and she is not hypotensive and in no respiratory distress therefore we will not treat with epi. She was treated with IV Pepcid, Solu-Medrol and Benadryl. Will reassess in 15 to 30 minutes. Lab Data Labs: Laboratory Results - last 24 hr 10/30/22 23:49 Urine Color SEE COMMENT BELOW Urine Clarity Sl. Cloudy Urine pH 6.0 Ur Specific [place] 1.025 Urine Protein 30 H Urine Glucose (UA) Normal Urine Ketones Negative Urine Occult Blood 10 H Urine Nitrite Positive H Urine Bilirubin 6 H Urine Urobilinogen 12 H Ur Leukocyte Esterase 25 H Urine RBC 0 SEEN Urine WBC 10-25 SEEN Ur Squamous Epith Cells 0 SEEN Urine Bacteria 1+ Urine Mucus 0 SEEN Treatment and Re-Evaluation :: Patient was reassessed at 2240. Her rash has improved as well as her itching. There is no evidence of respiratory distress. She is not hypotensive. And there is no evidence of angioedema. Patient was reassessed at 2300. Blood pressure has improved markedly. Patient is no longer tachycardic. She is no longer anxious. Her rash has improved significantly. She is no longer complaining of itching. Upon further investigation was determined that the prescription for nitrofurantoin is a old prescription. She took it because she thought she was getting a urinary tract infection. She was informed that she should never take nitrofurantoin again. Patient has slight erythema involving the extremities and torso. There is no erythema to her face or anterior neck. She states she has slight itching at this point. We will continue to observe since she has not totally resolved. Since patient's symptoms have not totally resolved we will have the evening physician reevaluate patient in 30 to 60 minutes. <Dr. Ruddy Faye, DO - Last Filed: 10/31/22 00:22> [facility] Lab Data Labs: Laboratory Results - last 24 hr 10/30/22 23:49 Urine Color SEE COMMENT BELOW Urine Clarity Sl. Cloudy Urine pH 6.0 Ur Specific [place] 1.025 Urine Protein 30 H Urine Glucose (UA) Normal Urine Ketones Negative Urine Occult Blood 10 H Urine Nitrite Positive H Urine Bilirubin 6 H Urine Urobilinogen 12 H Ur Leukocyte Esterase 25 H Urine RBC 0 SEEN Urine WBC 10-25 SEEN Ur Squamous Epith Cells 0 SEEN Urine Bacteria 1+ Urine Mucus 0 SEEN Treatment and Re-Evaluation :: Patient was reassessed at 2240. Her rash has improved as well as her itching. There is no evidence of respiratory distress. She is not hypotensive. And there is no evidence of angioedema. Patient was reassessed at 2300. Blood pressure has improved markedly. Patient is no longer tachycardic. She is no longer anxious. Her rash has improved significantly. She is no longer complaining of itching. Upon further investigation was determined that the prescription for nitrofurantoin is a old prescription. She took it because she thought she was getting a urinary tract infection. She was informed that she should never take nitrofurantoin again. Patient has slight erythema involving the extremities and torso. There is no erythema to her face or anterior neck. She states she has slight itching at this point. We will continue to observe since she has not totally resolved. Since patient's symptoms have not totally resolved we will have the evening physician reevaluate patient in 30 to 60 minutes. Patient was signed out to me while awaiting her urine sample results. The urine did show +1 bacteria with 10-25 white blood cells with no skin contamination. Patient also reports dysuria and with this urine finding and dysuria I do feel this is a true UTI and therefore it will be sent for culture and we will place her on antibiotics. Based on the patient's allergy profile she will be placed on Keflex. On reevaluation the patient has no signs of acute respiratory distress and her allergic reaction has been slowly improving and therefore she is otherwise safe for discharge. Discharge Plan Triage Chief Complaint: Allergic Reaction ED Provider: Reagan Kim Dx/Rx/DC Orders Clinical Impression: Allergic reaction caused by a drug, UTI (urinary tract infection) Instructions: Urinary Tract Infections in Women, ED General Allergic Reactions Prescriptions: New cephalexin 500 mg capsule 500 mg PO TID 7 Days Qty: 21 0RF famotidine [Pepcid] 20 mg tablet 20 mg PO BID 4 Days Qty: 8 0RF prednisone 20 mg tablet 40 mg PO DAILY 4 Days Qty: 8 0RF No Action atorvastatin 10 mg tablet 10 mg PO QHS albuterol sulfate [ProAir HFA] 90 mcg/actuation HFA aerosol inhaler 1 - 2 puff inhalation Q6H PRN (Reason: shortness of breath or wheezing) Qty: 8.5 3RF acetaminophen 500 MG tablet 1,000 mg PO Q8 Qty: 90 0RF ibuprofen 800 mg tablet 600 mg PO TID PRN (Reason: Pain Or Fever) Qty: 30 1RF cephalexin 500 mg capsule 500 mg PO Q12 Qty: 14 0RF prednisone 20 mg tablet 40 mg PO DAILY Qty: 8 0RF diclofenac sodium 1 % gel 4 g TOPICAL .QID PRN (Reason: Pain Or Fever) Qty: 100 2RF ergocalciferol (vitamin D2) 1,250 mcg (50,000 unit) capsule 50,000 unit PO QWEEK Qty: 20 2RF esomeprazole magnesium 40 mg capsule,delayed release(DR/EC) 40 mg PO QDAY Qty: 90 1RF Primary Care Provider: Bean Knapp Referrals: Bean Knapp, DO [Primary Care Provider] - Activity Restrictions/Additional Instructions: Please list nitrofurantoin/Macrobid as an allergy from now on. It would typically take 3 to 5 days for the drug to metabolize out of your system and therefore take the prescribed allergic reaction medications as directed. In order to resolve your UTI please take the Keflex as directed as well and return to the ER should you have any further concerns Disposition Disposition: Home, Self Care Discharge Date/Time: 10/31/22 00:27
[2022-10-30] MEDS: DiphenhydrAMINE 50 MG/ML Syringe 25 MG IV (22:29)
[2022-10-30] MEDS: MethylPREDNISolone 125 MG/2 ML Vial IV (22:46)
[2022-10-30] MEDS: Famotidine 200 MG/20 ML MDV 20 MG in 0.9% Normal Saline (Pres. free 8 ML 300 MG IV (22:48)
[2022-10-30 23:26] VITALS: BP 110/94; PULSE 69; RESP 15; O2SAT 99
[2022-10-30 23:54] LABS: Mucous, Urine 0 SEEN /hpf (<or=2+); Red Blood Cells-Urine 0 SEEN /hpf (0-5); Squamous Epithelial Cells - UA 0 SEEN /hpf (5-10)
[2022-10-30 23:55] LABS: Glucose, Dipstick Normal (Normal); Ketone-Dipstick Negative (Negative); Leukocyte Esterase-Dipstick 25 /ul (Negative); Nitrite-Dipstick Positive (Negative); Occult Blood-Urine 10 /ul (Negative); Protein-Dipstick 30 mg/dl (Negative); Specific Gravity, Urine 1.025 (1.002-1.030); Urine Clarity Sl. Cloudy (Clear); Urine Urobilinogen 12 mg/dl (Normal)
[2022-10-30 23:57] LABS: Color, Urine SEE COMMENT BELOW (Yellow); Urine Bilirubin Dipstick 6 mg/dL (Negative)
[2022-10-31 00:04] LABS: Bacteria 1+ /hpf (None Seen); White Blood Cells 10-25 SEEN /hpf (0-5)
[2022-10-31] MEDS: Cephalexin 250 MG Capsule 500 MG PO (00:22)
== END 2022-10-31 00:27 | disposition home or self-care (01) ==
PROVIDERS: Emergency Provider Emergency Medicine; PCP Family Medicine; Visit Provider Emergency Medicine
DX: N39.0 Urinary tract infection, site not specified (principal); Z87.891 Personal history of nicotine dependence; E78.00 Pure hypercholesterolemia, unspecified; Z79.52 Long term (current) use of systemic steroids; R30.0 Dysuria; R06.02 Shortness of breath; R21 Rash and other nonspecific skin eruption; T37.8X5A Adverse effect of other specified systemic anti-infectives and antiparasitics, initial encounter
CPT/HCPCS: 81001; 87086; 96374; 96375; 99281; A4216; J3490

== ENCOUNTER → 2022-11-27 | Outpatient (CLI) | payer MEDICARE, OTHER, SELFPAY ==
[2022-11-27 17:56] LABS: Mucous, Urine 0 SEEN /hpf (<or=2+)
[2022-11-27 18:13] LABS: Color, Urine Yellow (Yellow); Glucose, Dipstick Normal (Normal); Ketone-Dipstick Negative (Negative); Leukocyte Esterase-Dipstick 100 /ul (Negative); Nitrite-Dipstick Negative (Negative); Occult Blood-Urine 10 /ul (Negative); Protein-Dipstick Negative (Negative); Urine Bilirubin Dipstick Negative (Negative); Urine Clarity Sl. Cloudy (Clear); Urine Urobilinogen Normal (Normal)
[2022-11-27 18:28] LABS: Bacteria RARE /hpf (None Seen); Red Blood Cells-Urine 0-5 SEEN /hpf (0-5); Squamous Epithelial Cells - UA 0-5 SEEN /hpf (5-10); White Blood Cells 10-25 SEEN /hpf (0-5)
[2022-11-27 18:29] LABS: Amorphous Sediment 1+ URATE
== END | disposition home or self-care (01) ==
PROVIDERS: PCP Family Medicine; Visit Provider Physician Assistant
DX: R30.0 Dysuria (principal)
CPT/HCPCS: 81001; 87086; 87088; 87186

== ENCOUNTER → 2022-12-19 | Outpatient (CLI) | payer MEDICARE, OTHER, SELFPAY | END | disposition home or self-care (01) | PROVIDERS: PCP Family Medicine; Referring Provider Physician Assistant Surgical; Visit Provider Physician Assistant Surgical | DX: N30.01 Acute cystitis with hematuria (principal) | CPT/HCPCS: 87086 ==

== ENCOUNTER → 2023-02-27 | Outpatient (CLI) | payer MEDICARE, OTHER, SELFPAY ==
[2023-02-27 16:33] LABS: Absolute Lymphocyte Count 1.73 X10^3/uL (0.83-4.51); Absolute Neutrophil Count 4.5 X10^3/uL (2.0-7.7); Basophil# 0.04 X10^3/uL; Basophil% 0.6 % (0-1); Eosinophil# 0.03 X10^3/uL; Eosinophils% 0.4 % (0-5); Hematocrit 41.2 % (37-47); Hemoglobin 12.8 g/dL (12.0-15.0); Lymphocyte # 1.73 X10^3/ul (0.83-4.51); Lymphocyte % 25.2 % (19-41); Mean Corp Hgb Conc 31.1 g/dL (32-36); Mean Corpuscular Hgb 28.8 pg (27.0-32.0); Mean Corpuscular Volume 92.6 fL (81-99); Mean Platelet Vol. 10.8 fl (6.2-12.0); Monocyte# 0.51 X10^3/uL; Monocyte% 7.4 % (0-10); NRBC Flagged by Analyzer 0 % (0-5); Neutrophil # 4.53 X10^3/uL (2.7-7.7); Neutrophil % 66.1 % (47-70); Platelet Count 219 K/mm3 (150-450); RBC Distribution Width CV 14.4 % (11.6-14.6); RBC Distribution Width SD 48.9 fl (35.1-43.9); Red Blood Count 4.45 M/mm3 (4.2-5.4); White Blood Count 6.9 K/mm3 (4.4-11.0)
[2023-02-27 16:39] LABS: Prothrombin Time (Protime)PT. 13.4 SECONDS (11.7-14.9)
[2023-02-27 18:06] LABS: ALB/GLOB Ratio 1.2 RATIO (0.9-2.4); AST(SGOT) 16 U/L (15-37); Alanine Aminotransfer ALT/SGPT 25 U/L (13-56); Albumin, Serum 3.6 g/dL (3.2-5.0); Alkaline Phosphatase 106 U/L (45-117); Anion Gap 4 (5-15); BUN 16 mg/dL (7-18); BUN/Creat Ratio 21.7 RATIO (10-20); Calcium,Total 8.8 mg/dL (8.5-10.1); Chloride 111 mmol/L (98-107); Creatinine, Serum 0.74 mg/dL (0.55-1.02); EST Glomerular Filtration Rate 82 mL/min (>60); Est Glom Filt Rate - Afr Amer 99 mL/min (>60); Globulin 3.1 g/dL (2.2-4.2); Glucose 97 mg/dL (74-106); Potassium 3.8 mmol/L (3.5-5.1); Protein, Total 6.7 g/dL (6.4-8.2); Sodium Level 143 mmol/L (136-145)
== END | disposition home or self-care (01) ==
LOC: BIMLAB 16:00
PROVIDERS: PCP Family Medicine; Visit Provider Family Medicine
DX: R30.0 Dysuria (principal); R58 Hemorrhage, not elsewhere classified
CPT/HCPCS: 36415; 80053; 85025; 85610

== ENCOUNTER → 2023-05-09 | Outpatient (CLI) | payer MEDICARE, OTHER, SELFPAY ==
--- NOTE | 2023-05-09 08:06 | BI_ITS ---
MAMMOGRAPHY - BILATERAL SCREENING REASON FOR EXAM: Female, 73 years old. Routine annual screening examination. PERTINENT HISTORY: Non-contributory. TECHNIQUE: Digital bilateral breast lisa (3D mammographic acquisition) in the CC and MLO projections. 2-D mediolateral oblique (MLO) and craniocaudad (CC) views of both breasts were obtained. CAD: Full Field Digital Mammography with Computer Added Detection was performed. COMPARISON: Comparison is made with prior study dated July 26, 2021 and January 14, 2012. FINDINGS: Breast Composition: There are scattered areas of fibroglandular density. There are no dominant masses or suspicious calcifications. No other significant abnormalities are identified. There has been no significant change since the prior study. BI/SCRN MAMM (CAD)W/LISA BILAT IMPRESSION: Stable bilateral screening mammogram. Yearly follow-up mammogram recommended. (A) ASSESSMENT CATEGORY: BIRADS Category 1: Negative. A letter regarding these results will be sent to the patient by the facility within 30 days. Approximately 10% of breast cancers are not detected by mammography. A normal mammogram should not delay biopsy of a clinically suspicious abnormality. [id number] Electronically Signed: Eliseo Amaya MD at 9:44 EST ,
== END | disposition home or self-care (01) ==
LOC: OPBI 08:05
PROVIDERS: PCP Family Medicine; Referring Provider Family Medicine; Visit Provider Family Medicine
DX: Z12.31 Encounter for screening mammogram for malignant neoplasm of breast (principal)
CPT/HCPCS: 77063; 77067

== ENCOUNTER → 2023-06-13 | Outpatient (CLI) | payer MEDICARE, OTHER, SELFPAY | END | disposition home or self-care (01) | LOC: LABSPEC 13:16 | PROVIDERS: PCP Family Medicine; Referring Provider Physician Assistant; Visit Provider Physician Assistant | DX: N30.01 Acute cystitis with hematuria (principal) | CPT/HCPCS: 87077; 87086; 87088; 87186 ==

== ENCOUNTER → 2023-08-04 | Outpatient (CLI) | payer MEDICARE, OTHER, SELFPAY | END | disposition home or self-care (01) | LOC: LABSPEC 10:40 | PROVIDERS: PCP Family Medicine; Visit Provider Physician Assistant Medical | DX: N30.01 Acute cystitis with hematuria (principal) | CPT/HCPCS: 87086; 87088 ==

== ENCOUNTER → 2023-08-15 | Outpatient (CLI) | payer MEDICARE, OTHER, SELFPAY ==
[2023-08-15 09:30] LABS: Hematocrit 41.3 % (37-47); Hemoglobin 13.3 g/dL (12.0-15.0); Mean Corp Hgb Conc 32.2 g/dL (32-36); Mean Corpuscular Hgb 28.8 pg (27.0-32.0); Mean Corpuscular Volume 89.4 fL (81-99); Mean Platelet Vol. 11.1 fl (6.2-12.0); Platelet Count 234 K/mm3 (150-450); RBC Distribution Width CV 14.2 % (11.6-14.6); RBC Distribution Width SD 46.3 fl (35.1-43.9); Red Blood Count 4.62 M/mm3 (4.2-5.4); White Blood Count 5.4 K/mm3 (4.4-11.0)
[2023-08-15 10:53] LABS: AST(SGOT) 18 U/L (15-37); Alanine Aminotransfer ALT/SGPT 23 U/L (13-56); Albumin, Serum 3.3 g/dL (3.2-5.0); Alkaline Phosphatase 122 U/L (45-117); Anion Gap 4 (5-15); BUN 19 mg/dL (7-18); BUN/Creat Ratio 27.9 RATIO (10-20); Calcium,Total 9.3 mg/dL (8.5-10.1); Chloride 110 mmol/L (98-107); Cholesterol 167 mg/dL (200); Creatinine, Serum 0.68 mg/dL (0.55-1.02); EST Glomerular Filtration Rate 90 mL/min (>60); Est Glom Filt Rate - Afr Amer 109 mL/min (>60); Globulin 3.4 g/dL (2.2-4.2); Glucose 91 mg/dL (74-106); High Density Lipoprotein 82 mg/dL; Potassium 3.8 mmol/L (3.5-5.1); Protein, Total 6.7 g/dL (6.4-8.2); Sodium Level 142 mmol/L (136-145); Triglycerides 71 mg/dL; Very Low Density Lipoprotein 14 mg/dL (5-40)
== END | disposition home or self-care (01) ==
LOC: LAB 08:13
PROVIDERS: PCP Family Medicine; Referring Provider Nurse Practitioner Family; Visit Provider Nurse Practitioner Family
DX: I34.1 Nonrheumatic mitral (valve) prolapse (principal); I25.84 Coronary atherosclerosis due to calcified coronary lesion; R00.2 Palpitations; R06.00 Dyspnea, unspecified; G45.9 Transient cerebral ischemic attack, unspecified
CPT/HCPCS: 36415; 80053; 80061; 85027

== ENCOUNTER → 2023-09-08 | Outpatient (CLI) | payer MEDICARE, OTHER, SELFPAY | END | disposition home or self-care (01) | LOC: LABSPEC 10:23 | PROVIDERS: PCP Family Medicine; Referring Provider Physician Assistant Surgical; Visit Provider Physician Assistant Surgical | DX: N30.01 Acute cystitis with hematuria (principal); R30.0 Dysuria | CPT/HCPCS: 87077; 87086; 87088; 87186 ==

== ENCOUNTER → 2023-09-17 | Outpatient (CLI) | payer MEDICARE, OTHER, SELFPAY ==
--- NOTE | 2023-09-17 10:35 | CDU_ITS ---
Reason For Study: CAROTID STENOSIS Rt. Velocities/BP Lt. Velocities/BP Prox CCA 104.7/21.2 cm/sec. Prox CCA 91.0/23.9 cm/sec. Mid CCA 90.0/22.5 cm/sec. Mid CCA 73.3/20.4 cm/sec. Dist CCA 87.6/26.2 cm/sec. Dist CCA 77.1/26.1 cm/sec. Prox ICA 42.2/9.5 cm/sec. Prox ICA 71.7/17.9 cm/sec. Mid ICA 70.4/24.9 cm/sec. Mid ICA 73.6/20.8 cm/sec. Dist ICA 69.1/24.9 cm/sec. Dist ICA 50.4/20.8 cm/sec. Rt. ICA/CCA = 70.4/90.0=0.8. Lt. ICA/CCA = 73.6/73.3=1.0. Prox ECA 102.5/23.4 cm/sec. Prox ECA 53.8/7.5 cm/sec. Rt. Vert. 27.3/8.8 cm/sec. Lt. Vert. 55.1/17.1 cm/sec. Right Extracranial There is intimal thickening but no significant atherosclerotic plaque noted in the right common carotid artery. There is intimal thickening but no significant atherosclerotic plaque noted in the right internal carotid artery. The right internal carotid artery is very tortuous. There is intimal thickening but no significant atherosclerotic plaque noted in the right external carotid artery. Antegrade flow is noted in the right vertebral artery. Left Extracranial There is intimal thickening but no significant atherosclerotic plaque noted in the left common carotid artery. There is intimal thickening but no significant atherosclerotic plaque noted in the left internal carotid artery. There is intimal thickening but no significant atherosclerotic plaque noted in the left external carotid artery. Antegrade flow is noted in the left vertebral artery. Procedure Carotid Duplex 20613. This is a Carotid Duplex examination using B-mode, color flow and specral Doppler. Exam performed in department. VL/Carotid Duplex Ultrasound Interpretation Summary Normal right extracranial internal carotid. Normal left extracranial internal carotid. Patent and antegrade vertebrals bilaterally. Ordering Physician: Gayatri Green Referring Physician: Bean Knapp Performed By: Sanna Hameed RVT, RDCS and Student
== END | disposition home or self-care (01) ==
LOC: CVS 10:27
PROVIDERS: PCP Family Medicine; Referring Provider Nurse Practitioner Family; Visit Provider Nurse Practitioner Family
DX: I65.23 Occlusion and stenosis of bilateral carotid arteries (principal)
CPT/HCPCS: 93880

== ENCOUNTER → 2023-12-24 | Outpatient (CLI) | payer MEDICARE, OTHER, SELFPAY ==
--- NOTE | 2023-12-24 15:50 | US_ITS ---
INDICATION: UTI/FLANK PAIN EXAMINATION: Ultrasound US Kidney(s) complete (eg, kidneys and bladder) TECHNIQUE: Lees scale and color doppler images were obtained of the kidneys. COMPARISON: Prior study dated: 09/18/2020 FINDINGS: RIGHT KIDNEY: 9.7 x 4.5 x 5 cm. There is no hydronephrosis. No shadowing calculus or perinephric collection is demonstrated. 1.6 cm upper pole simple cyst. No specific follow-up recommended. Extrarenal pelvis noted. LEFT KIDNEY: 11.9 x 5.4 x 5.5 cm. There is no hydronephrosis. No shadowing calculus or perinephric collection is demonstrated. Simple renal cysts are seen which require no specific follow-up. URINARY BLADDER: Partially distended without wall thickening. US/Kidney and Bladder IMPRESSION: Extrarenal pelvis on the right without hydronephrosis. Unremarkable appearance of the left kidney. Electronically Signed: Song Brizuela MD at 22:18 EDT ,
== END | disposition home or self-care (01) ==
LOC: US 15:46
PROVIDERS: PCP Family Medicine; Referring Provider Urology; Visit Provider Urology
DX: N39.0 Urinary tract infection, site not specified (principal)
CPT/HCPCS: 76770

== ENCOUNTER → 2024-03-23 | Outpatient (CLI) | payer MEDICARE, OTHER, SELFPAY ==
--- NOTE | 2024-03-23 09:09 | RAD_ITS ---
EXAM: XR THORACIC SPINE, 2 VIEWS CLINICAL INDICATION: upper back pain TECHNIQUE: Frontal and lateral views of the thoracic spine. COMPARISON: No relevant prior studies available. FINDINGS: VERTEBRAE: Mild exaggeration of the normal thoracic kyphosis. Preserved vertebral body height. No fracture. No spondylolisthesis. No significant facet arthropathy. 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 OTHER FINDINGS: Bones are diffusely osteopenic. RAD/Thoracic Spine 2 Views IMPRESSION: 1. Mild exaggeration of the normal thoracic kyphosis. 2. Bones are diffusely osteopenic. 3. Mild degenerative disc disease lower thoracic spine. 4. No acute thoracic spine abnormality. Electronically Signed: Marcus Roger MD at 7:55 EDT ,
--- OUTSIDE RECORDS SUMMARY | 2024-03-23 10:17 | XMS RPT_ITS | CCD ---
Author Organization [facility] ion Partnership [facility] Care Team Providers Care Pipeline Technician Name Role Phone CHUY KNAPP DO Primary Care Physician Chuy Knapp DO Primary Care Provider Chuy Knapp DO Primary Care Provider JAMES SILVA I Attending Unavailable SELF, SELF Referring Unavailable CHUY KNAPP Primary Care Unavailable CHUY KNAPP DO Primary Care Physician Allergies Allergy Classification Reported Allergen(s) Allergy Type Date of Onset Reaction(s) Facility (2 sources) Sulfonamides (Antibiotic); Translations: [sulfa drugs] Drug allergy [facility] (1 source) Sulfonamides (Antibiotic) Drug Allergy 1 Other: See Comments [facility] Work Phone: (1 source) Sulfonamides (Antibiotic) Propensity to adverse reactions to drug 1 [facility] Medications Current Medications Medication Drug Class(es) Dates Sig (Normalized) Sig (Original) atorvastatin 10 mg oral tablet (3 sources) HMG-CoA Reductase Inhibitor Start: 10-31-2021 Lipitor 10 mg oral tablet Dose : 10 mg = 1 tab(s), Oral, qDay, # 90 tab(s), 1 Refill(s), [facility]acy: [facility], 162.6, cm, 08/08/21 13:02:00 EDT, Height, kg, 08/08/21 13:02:00 EDT, Dosing Weight Start Date: 10/31/21 Status: Ordered Start: 06-13-2020 Lipitor 10 mg oral tablet Dose : 10 mg = 1 tab(s), Oral, qDay, # 90 tab(s), 3 Refill(s), [facility]acy: [id number], 162.6, cm, 08/03/20 9:52:00 EST, Height, kg, 08/03/20 9:52:00 EST, Dosing Weight Start Date: 08/03/20 Status: Ordered Comment on above: Take 10 mg by mouth. ergocalciferol 1.25 mg oral capsule (2 sources) Provitamin D2 Compound ergocalciferol 1.25 MG (73209 UT) capsule Take 50,000 Units by mouth. 0 Active Comment on above: Take 50,000 Units by mouth. esomeprazole 40 mg delayed release oral capsule (3 sources) Proton Pump Inhibitor Start: 07-23-19 NexIUM 40 mg oral delayed release capsule Dose : 40 mg = 1 cap(s), Oral, Daily, # 30 cap(s), 0 Refill(s) Start Date: 07/23/19 Status: Ordered Comment on above: Take 40 mg by mouth. ibuprofen 800 mg oral tablet (3 sources) Nonsteroidal Anti-inflammatory Drug take 1 tablet by mouth once daily as needed ibuprofen 800 MG PO TABS take 1 Tab by mouth daily as needed. 0 Active take 1 tablet by tracey th every six hours as needed ibuprofen 800 MG tablet Take 800 mg by mouth Every 6 hours as needed. 0 Active Comment on above: Take 800 mg by mouth every 6 hours as needed. NexIUM 40 mg oral delayed release capsule (1 source) Start: 07-23-2019 NexIUM 40 mg oral delayed release capsule Dose : 40 mg = 1 cap(s), Oral, Daily, # 30 cap(s), 0 Refill(s) Start Date: 07/23/19 Status: Ordered traMADol (1 source) Opioid Agonist take 1 tablet by mouth once daily as needed TRAMADOL HCL PO take 1 Tab by mouth daily as needed. Unsure of dose 0 Active Vitamin D with Minerals oral tablet (2 sources) Start: 02-01-2021 take 1 tablet by mouth once daily Vitamin D with Minerals oral tablet tab(s), Oral, qDay, 0 Refill(s) Start Date: 02/01/21 Status: Ordered Completed/Discontinued Medications Medication Drug Class(es) Dates Sig (Normalized) Sig (Original) aspirin 81 mg chewable tablet (1 source) Platelet Aggregation Inhibitor, Nonsteroidal Anti-inflammatory Drug Start: 08-10-2019 aspirin 81 mg chewable tablet 81 mg. 0 08/10/2019 Active Comment on above: 81 mg. COMPOUNDED PRESCRIPTION (1 source) COMPOUNDED PRESCRIPTION Indications: 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 0 Active Comment on above: Patient has a tens u nit. lidocaine 0.05 mg/mg medicated patch (1 source) Antiarrhythmic, Amide Local Anesthetic Start: 05-03-2011 apply 1 dose topically once daily lidocaine 5 %(700 mg/patch) TOPICAL Indications: Degeneration of thoracic or thoracolumbar intervertebral disc , Thoracic spondylosis without myelopathy , Pain in thoracic spine Apply 1 Patch as directed once daily. TO AFFECTED AREA. REMOVE AFTER 12 HOURS. 30 Patch 0 05/03/2011 Active Comment on above: Apply 1 Patch as dir ected once daily. TO AFFECTED AREA. REMOVE AFTER 12 HOURS. Problems Active Problems Problem Classification Problem Date Documented Da te Episodic/Chronic Cardiac dysrhythmias (2 sources) Palpitations 07-23-2019 Episodic Coronary atherosclerosis and other heart disease (2 sources) Calcification of coronary artery 07-23-2019 Chronic Heart valve disorders (2 sources) Mitral valve prolapse 07-23-2019 Chronic Influenza (3 sources) Influenza due to Influenza A virus; Translations: [Influenza due to other identified influenza virus with other respiratory manifestations] Onset: 05-17-2022 Episodic Other lower respiratory disease (2 sources) Dyspnea 07-23-2019 Episodic Other lower respiratory disease (1 source) Cough; Translations: [Acute cough] Episodic Residual codes; unclassified (1 source) Influenza-like symptoms; Translations: [Other general symptoms and signs] Episodic Residual codes; unclassified (2 sources) Other general symptoms and signs; Translations: [Other general symptoms and signs] Onset: 05-17-2022 Episodic Transient cerebral ischemia (2 sources) Transient cerebral ischemia 08-08-2021 Chronic Unclassified (1 source) Acute cough; Translations: [Acute cough] Onset: 05-17-2022 Past or Other Problems Problem Classification Problem Date Documented Da te Episodic/Chronic Unclassified (1 source) Acute cough; Translations: [Acute cough] Onset: 05-17-2022 Results Test Name Value Interpretation Reference Range Facil ity CT HEAD OR BRAIN W/O CONTRAS Ton 08-14-2021 CT HEAD OR BRAIN W/O CONTRAST ORIGINAL INDICATION:TIA TECHNIQUE: CT head without contrast performed using dose optimization techniques including automated exposure control. COMPARISON: None available FINDINGS: No evidence of acute transcortical infarct, intracranial hemorrhage, or mass effect. No hydrocephalus or extra-axial collection. The visualized orbital contents are normal. The paranasal sinuses, mastoid air cells, and soft tissues and osseous structures are normal. IMPRESSION: Normal CT head. Interpreted by: Sathish Vanegas MD Preliminary Report By: Sathish Vanegas MD Electronically signed By Sathish Vanegas MD Dictated Date: 08/14/2021 10:01:02 AM Prelim Date: 08/14/2021 10:02:09 AM Sign Date: 08/14/2021 10:02:09 AM Ordering Provider: SHASHI Posadas [facility] ([place]) CREATININE Don 07-26-2021 Creatinine [Mass/Vol] 0.65 mg/dL Normal 0.58-0.96 [facility] Comment on above: Order Comment: Clinton hernandez Type: BLOOD SPECIMEN Ordering Facility: [facility] Address: [address] [place] [address] Performed By: #### C RET1 #### [facility] [id number] [address] [place] [address] OF [facility] ESTIMATED GLOMERULAR FILTRATION RATE 95 mL/min/1.73m??? Normal >=60 [facility] Comment on above: Order Comment: Clinton hernandez Type: BLOOD SPECIMEN Ordering Facility: [facility] Address: [address] [place] [address] Result Comment: Alcira mated Glomerular Filtration Rate (eGFR) is calculated using the 2020 CKD-EPI creatinine equation. This equation utilizes serum creatinine, sex, and age as parameters. The creatinine assay has traceable calibration to isotope dilution-mass spectrometry. Refer to KDIGO guidelines for clinical interpretation. In patients with unstable renal function, e.g. those with acute kidney injury, the eGFR may not accurately reflect actual GFR. Performed By: #### C RET1 #### [facility] [id number] [address] [place] [address] ABD/PEL W IVCONon 03-[address] ABD/PEL W IVCON * * *Final Report* * * DATE OF EXAM: Jul 26 2021 10:32AM [facility] 0530 - CT ABD/PEL W IVCON / PROCEDURE REASON: multiple diagnoses * * * * Physician Interpretation * * * * EXAMINATION: CT ABDOMEN AND PELVIS WITH IV CONTRAST CLINICAL HISTORY: Pelvic pain, abnormal ultrasound TECHNIQUE: CT of the abdomen and pelvis was performed using standard technique, scanning from just above the dome of the diaphragm to the symphysis pubis. MQ: CTAP_3 Contrast: IV: 125 ml of Omnipaque 300 Oral: 50 ml of 50ML Omnipaque [address] Radiation dose: Integrated Dose-length product (DLP) for this visit = 389 mGy*cm. CT Dose Reduction Employed: Automated exposure control(AEC) and iterative recon COMPARISON: Pelvic ultrasound dated 07/19/2021 RESULT: Liver: No mass. Biliary: No bile duct dilation. Gallbladder is unremarkable. Spleen: No mass. No splenomegaly. Pancreas: No mass or duct dilation. Adrenals: No mass. Kidneys: No calculus or hydronephrosis. Small right-sided cysts. GI tract: No dilation or wall thickening. Lymph nodes: No abdominal or pelvic lymphadenopathy. Mesentery/Peritoneum: No ascites or mass. Retroperitoneum: No mass. Vasculature: - Abdominal aorta and iliac arteries: No aneurysm. - Celiac and SMA: Patent without stenosis. - Portal venous system (SMV, splenic vein, portal vein and branches): Patent. - Hepatic veins: Patent. Pelvis: Right adnexal structure measuring 2.8 x 2.7 x 1.9 cm (5:48, 3:106) probably represents right ovary. A small cystic component at the superior aspect consistent with ovarian cyst or follicle. No free pelvic fluid. Bones/Soft Tissues: No significant finding. Lower thorax: Unremarkable. Special Police Officer (topogram) images: No significant findings. IMPRESSION: No acute abnormality involving the abdomen or pelvis. Small right-sided renal cysts. Right adnexal structure likely representing the right ovary with cystic component superiorly consistent with small ovarian cyst or follicle. Stull Installer: DIXON Transcribe Date/Time: Jul 26 2021 1:12P Dictated by : RANCHO GERMAIN MD This examination was interpreted and the report reviewed and electronically signed by: RANCHO GERMAIN MD on Jul 26 2021 1:23PM EST [id number] Normal [facility] FEMALE PELVIS TRANSABD LT Don 07-19-2021 US FEMALE PELVIS TRANSABD LTD * * *Final Report* * * DATE OF EXAM: Jul 19 2021 9:09AM [facility] 1059 - US FEMALE PELVIS TRANSABD LTD / PROCEDURE REASON: Pelvic pain in female * * * * Physician Interpretation * * * * EXAMINATION: TRANSVAGINAL AND LIMITED TRANSABDOMINAL PELVIC ULTRASOUND CLINICAL HISTORY: Sharp vaginal pain. Postmenopausal. TECHNIQUE: Sonography of the pelvis was performed by transvaginal and transabdominal (limited) techniques. Images were obtained and stored in a permanent archive. MQ: UFP_1 COMPARISON: None RESULT: Per technologist: patient was unable to fill bladder. Only a limited transvaginal exam could be obtained due to patient discomfort. Uterus size: 6.7 x 3.1 x 3.4 cm -Orientation: Anteverted -Myometrium: Unremarkable sonographic appearance. -Endometrial echo complex: 0.3 cm Limited visualization -Cervix: normal Bilateral ribs clearly identified. In the RIGHT adnexal region there is a hypoechoic density with internal echoes measuring 3.3 x 2.5 x 2.5 cm in diameter. Pelvis free fluid: None. IMPRESSION: Limited study as noted in results. Indeterminate RIGHT adnexal density. This may further evaluated if clinically warranted with MR of the female pelvis. Alternative would be a CT with oral and intravenous contrast. Stull Installer: [facility] Transcribe Date/Time: Jul 19 2021 4:50P Dictated by : JOVANY KC MD This examination was interpreted and the report reviewed and electronically signed by: JOVANY KC MD on Jul 19 2021 4:53PM EST [id number] Normal [facility] FEMALE PELVIS TRANSVAGon 07-19-2021 FEMALE PELVIS TRANSVAG * * *Final Report* * * DATE OF EXAM: Jul 19 2021 9:09AM [facility] 1060 - US FEMALE PELVIS TRANSVAG / PROCEDURE REASON: Pelvic pain in female * * * * Physician Interpretation * * * * EXAMINATION: TRANSVAGINAL AND LIMITED TRANSABDOMINAL PELVIC ULTRASOUND CLINICAL HISTORY: Sharp vaginal pain. Postmenopausal. TECHNIQUE: Sonography of the pelvis was performed by transvaginal and transabdominal (limited) techniques. Images were obtained and stored in a permanent archive. MQ: UFP_1 COMPARISON: None RESULT: Per technologist: patient was unable to fill bladder. Only a limited transvaginal exam could be obtained due to patient discomfort. Uterus size: 6.7 x 3.1 x 3.4 cm -Orientation: Anteverted -Myometrium: Unremarkable sonographic appearance. -Endometrial echo complex: 0.3 cm Limited visualization -Cervix: normal Bilateral ribs clearly identified. In the RIGHT adnexal region there is a hypoechoic density with internal echoes measuring 3.3 x 2.5 x 2.5 cm in diameter. Pelvis free fluid: None. IMPRESSION: Limited study as noted in results. Indeterminate RIGHT adnexal density. This may further evaluated if clinically warranted with MR of the female pelvis. Alternative would be a CT with oral and intravenous contrast. Stull [facility] Transcribe Date/Time: Jul 19 2021 4:50P Dictated by : JOVANY KC MD This examination was interpreted and the report reviewed and electronically signed by: JOVANY KC MD on Jul 19 2021 4:53PM EST [id number] Normal [facility] 07-17-2021 CNPN Telephone (OBGYWM) DANISHA ASCENCIO ([id number]) 1950 F Date Time Provider Department 07/17/21 TRICIA NIEVES During your visit today, we recorded the following information about you: Althea Cuevas RDMS 07/17/2021 2:[address] an US FEMALE PELVIS TRANSVAG order, only have limited transabd pelvic orders in [place] currently. Pt is scheduled on . Thanks, Althea Nolasco [facility] Tricia Nieves MD 07/17/2021 2:44 PM Signed completed. MD Tricia Stacy MD 07/20/2021 10:45 AM Signed Addended by: TRICIA NIEVES on: 07/20/2021 10:45 AM Modules accepted: Orders Allergies As of Date: 07/17/2021 Noted Allergy Reaction SULFA (SULFONAMIDE ANTIBIOTICS) 05/03/2011 14 - Other: See Comments Comments: tongue breaks out Date Reviewed: 07/16/2021 Reviewed by: Tricia Nieves MD - Fully Assessed Reason for Visit: Orders [681] Primary Visit Diagnosis:Pelvic pain in female [R10.2] Other Visit Diagnoses:Ovarian cyst, right [N83.201] Lower abdominal pain [R10.30] Order(s):US FEMALE PELVIS TRANSVAG [[id number]] Order #: [id number] FUTURE PELVIC US WHI [[id number]] Reflex Order#: [id number] (Ord#:[id number])Qty: 1 CT ABD/PEL W IVCON [[id number]] Reflex Order#: [id number] (Ord#:[id number]) FUTURE iv contrast (will be provided with radiology test)CT ABD/PEL -Inject, intravenously, once for 1 dose.No IV access, insert saline lock prior to the beginning of sedation, infusion, injection of imaging exam. Discontinue saline lock post exam. If Pt. has a central line or IVAD, may access for administration according to line specific nursing protocol. Once exam is complete flush line and de-access according to line specific nursing protocol in the CT contrast administration guidelines link.Disp: 1 EachRfl: 0 enteric contrast (will be provided with radiology test)For CT ABD/PEL W IVCON Routine order Administer, As Directed One Time Only, via Oral, Rectal, both Oral and Rectal, Enteric Tube, Stoma or Indwelling Catheter, Enteric Contrast as designated per enteric contrast guidelinesDisp: 1 EachRfl: 0 CREATININE BLD [SQCRET] Reflex Order#: [id number] (Ord#:[id number]) FUTURE Prescriptions as of 07/20/2021 - iv contrast (will be provided with radiology test) CT ABD/PEL -Inject, intravenously, once for 1 dose.No IV access, insert saline lock prior to the beginning of sedation, infusion, injection of imaging exam. Discontinue saline lock post exam. If Pt. has a central line or IVAD, may access for administration according to line specific nursing protocol. Once exam is complete flush line and de-access according to line specific nursing protocol in the CT contrast administration guidelines link. - enteric contrast (will be provided with radiology test) For CT ABD/PEL W IVCON Routine order Administer, As Directed One Time Only, via Oral, Rectal, both Oral and Rectal, Enteric Tube, Stoma or Indwelling Catheter, Enteric Contrast as designated per enteric contrast guidelines - atorvastatin (LIPITOR) 10 mg tablet Take 10 mg by mouth. - aspirin 81 mg chewable tablet 81 mg. - ergocalciferol, vitamin D2, (DRISDOL) 50,000 unit capsule Take 50,000 Units by mouth. - esomeprazole (NEXIUM) 40 mg capsule Take 40 mg by mouth. - ibuprofen 800 mg ORAL tablet Take 800 mg by mouth every 6 hours as needed. - COMPOUNDED PRESCRIPTION Patient has a tens unit. - lidocaine 5 %(700 mg/patch) TOPICAL Apply 1 Patch as directed once daily. TO AFFECTED AREA. REMOVE AFTER 12 HOURS. Problem List As Of Date 07/17/2021 Noted Resolved Encounter for gynecological examination (genera*07/16/2021 Prescriptions ordered this encounter Disp Refills Start End IV CONTRAST (RADIOLOGY PROCEDURE) 1 Ea* 0 07/20/2021 07/21/2021 Class: In Office Sig: CT ABD/PEL -Inject, intravenously, once for 1 dose.No IV access, insert saline lock prior to the beginning of sedation, infusion, injection of imaging exam. Discontinue saline lock post exam. If Pt. has a central line or IVAD, may access for administration according to line specific nursing protocol. Once exam is complete flush line and de-access according to line specific nursing protocol in the CT contrast administration guidelines link. ENTERIC CONTRAST (RADIOLOGY PROCEDUR* 1 Ea* 0 07/20/2021 07/21/2021 Class: In Office Sig: For CT ABD/PEL W IVCON Routine order Administer, As Directed One Time Only, via Oral, Rectal, both Oral and Rectal, Enteric Tube, Stoma or Indwelling Catheter, Enteric Contrast as designated per enteric contrast guidelines Encounter Status:Closed by TRICIA NIEVES on 07/17/21 [facility] CNOVon 07-16-2021 CNOV Office Visit (OBGYWM ) DANISHA ASCENCIO ([id number]) 1950 F Date Time Provider Department 07/16/21 9:00 AM TRICIA NIEVES OBKOSTA During your visit today, we recorded the following information about you: Blood pressure Weight Height 112/64 76.2 kg 1.638 m Tricia Nieves MD 07/16/2021 9:25 AM Signed Danisha Ascencio is a 71 year old female who presents for problem visit for vaginal spasms for past few months. Mostly happens when she gets a hot flash. Spasms are sharp, last a couple of minutes then resolve. They do not happen w/ BM or urination. No vaginal bleeding. Has some urgency of urination but not w/ the spasm feeling. Happens daily lately. Never happens when she is sleeping. No vaginal bleeding. No constipation. No blood in stools. Very active. Very active, swims and dances daily. Not necessarily related to activity. Doesn't limit activity. No traumas, no changes in medications. OB History T3 L3 SAB1 IAB0 Ectopic0 Multiple0 Live Births3 Fruit Packer History LMP: Postmenopausal Age at Menarche: Age at First : Age at Menopause: Fruit Packer History Comments: Sexual Activity: Not Asked; No partner data on record Contraception: No contraception data on record PAST MEDICAL HISTORY Diagnosis Date - DDD (degenerative disc disease) - Kidney stone - Lung cancer (HCC) PAST SURGICAL HISTORY Procedure Laterality Date - ARTHRP KNE CONDYLEANDPLATU MEDIALANDLAT COMPARTMENTS Left 08/08/2019 - BACK SURGERY HX 2014 low back - BUNIONECTOMY, LAPIDUS-TYPE right x2 - CATARACT SURGERY, COMPLEX Bilateral - DELIVERY ONLY 1970,1973,1980 , low transverse - DANDC (MISSED AB 1ST TRIMESTER) 1979 - KNEE SURGERY HX Left 07/2017 torn miniscus - LOBECTOMY, SEGMENT 2009 left upper lobe FAMILY HISTORY Problem Relation Age of Onset - Emphysema Father - other (Mental illness) Mother Social History Tobacco Use - Smoking status: Never Smoker - Smokeless tobacco: Never Used Vaping Use - Vaping Use: Never used Substance Use Topics - Alcohol use: No - Drug use: No Current Outpatient Medications Medication Sig - atorvastatin (LIPITOR) 10 mg tablet Take 10 mg by mouth. - aspirin 81 mg chewable tablet 81 mg. - ergocalciferol, vitamin D2, (DRISDOL) 50,000 unit capsule Take 50,000 Units by mouth. - esomeprazole (NEXIUM) 40 mg capsule Take 40 mg by mouth. - ibuprofen 800 mg ORAL tablet Take 800 mg by mouth every 6 hours as needed. - COMPOUNDED PRESCRIPTION Patient has a tens unit. - lidocaine 5 %(700 mg/patch) TOPICAL Apply 1 Patch as directed once daily. TO AFFECTED AREA. REMOVE AFTER 12 HOURS. No current facility-administered medications for this visit. Allergies As of Date: 07/16/2021 Allergen Noted Reaction SULFA (SULFONAMIDE ANTIBIOTICS) 05/03/2011 Other: See Comments Fully Assessed 07/16/2021 REVIEW OF SYSTEMS Abdomen: No bloating, early satiety, indigestion, or increased flatulence. No abdominal pain, nausea, vomiting, diarrhea, or constipation. Bladder: No dysuria, gross hematuria, urinary frequency, urinary urgency, or incontinence. Breast: No breast lumps, nipple d/c, overlying skin changes, redness or skin retraction. Expanded ROS: N/A Allergies and current medication updated:Yes EXAM: BP 112/64 Ht 5' 4.5 (1.64m) Wt 168 lb (76.2kg) BMI 28.40 kg/(m2). GENERAL: pleasant, female in no apparent distress HEENT: Normocephalic, atraumatic, mucus membranes moist and no lesions NECK: Supple, full range of motion, no adenopathy and thyroid normal DERMATOLOGY: Normal, without lesions, non-icteric and non-hirsute ABDOMEN: soft, non-tender, no masses and scar noted, no hernia or tenderness PELVIC: external genitalia normal, normal Bartholin's glands, urethra, [place]'s glands, no vulvar lesions, no cervical lesions, good vaginal support, physiologic discharge present, normal appearing perineal body and perianal region BIMANUAL: uterus normal size, shape and consistency, no adnexal masses and non-tender ASSESSMENT AND PLAN: check pelvic US some pelvic floor spasm on exam consider pelvic floor PT Medical Decision Making Tricia Nieves MD Referring Provider: SELF [200] Allergies As of Date: 07/16/2021 Noted Allergy Reaction SULFA (SULFONAMIDE ANTIBIOTICS) 05/03/2011 14 - Other: See Comments Comments: tongue breaks out Date Reviewed: 07/16/2021 Reviewed by: Tricia Nieves MD - Fully Assessed Reason for Visit: Yearly Exam [187] Primary Visit Diagnosis:Pelvic pain in female [R10.2] Other Visit Diagnosis:Levator spasm [M62.838] Order(s): FEMALE PELVIS TRANSABD LTD [[id number]] Order #: [id number] FUTURE FEMALE PELVIS TRANSABD LTD [[id number]] Order #: [id number] FUTURE CONSULT TO PHYSICAL THERAPY [9032] Order #: [id number]: 1 FUTURE Prescriptions as of 07/16/2021 - atorvastatin (LIPITOR) 10 mg tab (more content not included)... Normal [facility] XR CHEST 2 VIEWSon 1 XR CHEST 2 VIEWS ORIGINAL XR XR CHEST 2 VIEWS, Clinical Statement: SOB, Comparison: 07/24/2015 Findings: The lungs show no consolidation or mass. Heart size and mediastinal contours are stable accounting for differences in projection and patient position. No consolidation, pneumothorax, pleural fluid, or vascular congestion is seen. The bones show no acute process. Small hiatal hernia. Left-sided tracheal deviation from vascular structures seen on earlier CT, unchanged. IMPRESSION: No acute cardio pulmonary process. Interpreted By: Vj Prajapati MD Preliminary Report By: Vj Prajapati MD Electronically Signed By: Vj Prajapati MD Dictated Date: 09/08/2020 4:33:06 PM Prelim Date: 09/08/2020 4:33:06 PM Sign Date: 09/08/2020 4:34:39 PM Ordering Provider:Shashi Green [facility] ([place]) Vital Signs Date Time Vital Sign Value Performing Clinician Satish duke 05-17-2022 11:53-0500 [facility] 162.6 [facility] 05-17-2022 11:53-0500 Body mass index (BMI) [Ratio] 28.32 kg/m2 James Mojgantah [employer]ACTICE DOCTOR Work Phone: [facility] 05-17-2022 11:53-0500 Body temperature 98.6 [degF] James Mojgantah [employer] PRACTICE DOCTOR Work Phone: [facility] 05-17-2022 11:53-0500 Body weight 74.84 kg James Mojgantah [employer]ILY PRACTICE DOCTOR Work Phone: [facility] 05-17-2022 11:53-0500 Diastolic blood pressure 77 mm[Hg] James Meftah [employer]ILY PRACTICE DOCTOR Work Phone: [facility] 05-17-2022 11:53-0500 Heart rate 86 /min James Mojgantah SEA AIR LAND OFFICER-FAMILY PRACTICE DOCTOR Work Phone: [facility] 05-17-2022 11:53-0500 Respiratory rate 16 /min James Mojgantah [employer] OFFICER-FAMILY PRACTICE DOCTOR Work Phone: [facility] 05-17-2022 11:53-0500 SaO2% (BldA) [Mass fraction] 95 % James Mojgantah [employer] OFFICER-FAMILY PRACTICE DOCTOR Work Phone: [facility] 05-17-2022 11:53-0500 Systolic blood pressure 117 mm[Hg] James Mojgantajose [employer] OFFICER-FAMILY PRACTICE DOCTOR Work Phone: [facility] Encounters Encounter Date Encounter Type Care Provider Facility Start: 06-14-2022 End: 06-14-2022 Patient encounter procedure LANDRY SOLARES PA [facility] Start: 05-17-2022 ambulatory JAMES Barby DIANETAJose [facility] Start: 05-17-2022 End: 05-17-2022 Office outpatient new 30 minutes James I Mojgantah [employer] OFFICER-FAMILY PRACTICE DOCTOR Work Phone: [facility] [place] Comment on above: Influenza A (Primary Dx); Flu-like symptoms; Acute cough Start: 08-29-2021 ambulatory No Pcp Kwan Galloise Start: 08-14-2021 End: 08-14-2021 Patient encounter procedure SHASHI HAYDE [employer] OFFICER-FAMILY PRACTICE DOCTOR [facility] Start: 07-16-2021 Patient encounter status No Pcp [facility] Work Phone: Procedures Date Procedure Procedure Detail Performing Clinician Start: 07-26-2021 Mammography No Pcp Cataract (morphologi c abnormality) SHASHIJOSE GREEN [employer] OFFICER-FAMILY PRACTICE DOCTOR Comment on above: bilateral Deliveries by alyssa myers (finding) SHASHI GREEN [employer] OFFICER-FAMILY PRACTICE DOCTOR Comment on above: x3 Foot structure (body structure) SHASHI GREEN [employer] OFFICER-FAMILY PRACTICE DOCTOR Lobectomy SHASHI GREEN AP RN-FAMILY PRACTICE DOCTOR Comment on above: upper left lobectomy , CA lung 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 SHASHIJOSE GREEN [employer] OFFICER-FAMILY PRACTICE DOCTOR Comment on above: Left knee Plan of Treatment Date Care Activity Detail Author Start: 01-18-2030 Tetanus vaccination TETANUS [facility] Start: 07-26-2022 Mammography MAMMOGRAM [facility] Start: 05-26-2021 ADVANCE DIRECTIVE DISCUSSION ADVANCE DIRECTIVE DISCUSSION [facility] Start: 03-20-2021 COVID-19 VACCINE (2 - Pfizer 3-dose series) COVID-19 VACCINE (2 - Pfizer 3-dose series) [facility] Start: 06-03-2019 Pneumococcal vaccination PNEUMOCOCCAL VACCINE SERIES (2 - PCV) [facility] Start: 2016 BONE DENSITY BONE DENSITY [facility] Start: 11-25-2012 Screening for malignant neoplasm of lung LUNG CANCER SCREENING [facility] Start: 2001 SHINGRIX VACCINE (1 of 2) SHINGRIX VACCINE (1 of 2) [facility] Start: 2001 Zoster vaccine hzv live for subcutaneous use ZOSTER (SHINGLES) VACCINE (1 of 2) [facility] Start: 1996 COLOGUARD (FIT-DNA) COLOGUARD (FIT-DNA) [facility] Start: 1996 Colonoscopy COLONOSCOPY [facility] Start: 1996 COLORECTAL CANCER SCREENING COLORECTAL CANCER SCREENING [facility] Start: [address] COLONOGRAPHY [facility] Start: 1996 DIABETES SCREEN DIABETES SCREEN [facility] Start: 1996 FECAL OCCULT BLOOD FECAL OCCULT BLOOD [facility] Start: 1996 LIPID SCREEN LIPID SCREEN [facility] Start: 1996 Screening for malignant neoplasm of colon COLORECTAL CANCER SCREENING DISCUSSION [facility] Start: 1996 SIGMOIDOSCOPY SIGMOIDOSCOPY [facility] Start: 1991 Lipid panel LIPID SCREENING [facility] Start: 1991 Screening for malignant neoplasm of breast MAMMOGRAM SCREENING DISCUSSION [facility] Start: 1972 Screening for malignant neoplasm of cervix CERVICAL CANCER SCREENING DISCUSSION [facility] Start: 1970 Urine microalbumin profile DTAP,TDAP,TD (1 - Tdap) [facility] Start: 1969 HEPATITIS C SCREENING HEPATITIS C SCREENING [facility] Start: 1963 Adult depression screening assessment DEPRESSION SCREENING [facility] Start: 1950 COVID-19 VACCINE (#1) COVID-19 VACCINE (#1) [facility] Start: 1950 Hepatitis C screening HEPATITIS C VIRUS SCREENING [facility] Start: 1950 Screening for osteoporosis DEXA SCAN DISCUSSION [facility] Immunizations Immunization Date Immunization Notes Care Provider Benny nelson 06-03-2018 pneumococcal polysaccharide vaccine, 23 valent No Pcp [facility] Work Phone: 06-03-2018 pneumococcal vaccine , unspecified formulation No Pcp [facility] Work Phone: Payers Date Payer Category Payer Department Obinna adams ([place] and others) [facility] [id number] 2022-Present [address] [place] [address] [id number] 2022 [employer] ( and others) [id number] 2022 Medicare MEDICARE MEDICAR E A AND B [id number] 2022-Present [address] [place] [address] [id number] 2022 Medicare [id number] 2013 Medicare MEDICARE MEDICAR E A AND B [id number] 2013-Present [phone] [address] [address] [place] [address] Medicare [id number] 1997 Unknown [facility] [id number] 1997-Present [phone] [address] [address] [place] [address] Indemnity [id number] 1950 Unknown 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) [facility] Start: 1950 Sex Assigned At Not on file [facility] End: 09-12-2008 History of tobacco use Current smoker [facility] End: 09-12-2008 History of tobacco use Cigarette Smoker [facility] Start: 05-14-2011 Cigarettes smoked current (pack per day) - Reported 1.5 [facility] Start: 05-17-2022 Alcohol intake Current drinke r of alcohol (finding) [facility] Clinical Notes 07-16-2021 to 05-17-2022 PIPO Stuart - 05/17/2022 11:45 AM ESTMaryleesa Suellen Alvarez Pss - 08/29/2021 10:53 AM EDT Note Date & Type Note Facility 05-17-2022 History of Present illness Narrative See downtime forms. James FOSS documented in this encounter [facility] 08-29-2021 Note Patient Outreach (BOY FLORES) DANISHA ASCENCIO ([id number]) 1950 F Date Time Provider Department 08/29/21 NO PCP NETNAV During your visit today, we recorded the following information about you: Marii Suellen Alvarez [facility] 08/29/2021 10:53 AM Signed POPULATION HEALTH NAVIGATION OUTREACH Action/ Patient Outreach: Spoke with patient to schedule in RST. Pt declined PT Consult Pt identified by name and : YES, via phone Outreach Outcome/Action Spoke to patient or caregiver: Patient declined Reason for Outreach Care Gap or Scheduling/Wellness visits Payer: Payor: MEDICARE / Plan: MEDICARE A AND B / Product Type: Medicare / Care Gap Reviewed:: RST Reminder: Reminder note to check Health Maintenance for items below Health Maintenance items due: DEPRESSION SCREENING Never done HEPATITIS C SCREENING Never done DTAP,TDAP,TD(1 - Tdap) Never done LIPID SCREEN Never done DIABETES SCREEN Never done COLORECTAL CANCER SCREENING Never done SHINGRIX VACCINE(1 of 2) Never done BONE DENSITY Never done COVID-19 VACCINE(2 - Pfizer 3-dose series) due on 03/20/2021 ADVANCE DIRECTIVE DISCUSSION Never done Message Sent to Practice: No Navigation Signature: Marii Holcomb August 29, 2021 10:53 AM Allergies As of Date: 08/29/2021 Noted Allergy Reaction SULFA (SULFONAMIDE ANTIBIOTICS) 05/03/2011 14 - Other: See Comments Comments: tongue breaks out Date Reviewed: 07/25/2021 Reviewed by: Linda Haji, RT(R) - Fully Assessed Prescriptions as of 08/29/2021 - atorvastatin (LIPITOR) 10 mg tablet Take 10 mg by mouth. - aspirin 81 mg chewable tablet 81 mg. - ergocalciferol, vitamin D2, (DRISDOL) 50,000 unit capsule Take 50,000 Units by mouth. - esomeprazole (NEXIUM) 40 mg capsule Take 40 mg by mouth. - ibuprofen 800 mg ORAL tablet Take 800 mg by mouth every 6 hours as needed. - COMPOUNDED PRESCRIPTION Patient has a tens unit. - lidocaine 5 %(700 mg/patch) TOPICAL Apply 1 Patch as directed once daily. TO AFFECTED AREA. REMOVE AFTER 12 HOURS. Problem List As Of Date 08/29/2021 Noted Resolved Encounter for gynecological examination (genera*07/16/2021 Encounter Status:Closed by MARII CARRIZALES on 08/29/21 [facility] 08-29-2021 Note HNO ID: [id number] Author: Marii Holcomb Service: ? Author Type: ? Type: Progress Notes Filed: 08/29/2021 10:53 AM Note Text: POPULATION HEALTH NAVIGATION OUTREACH Action/I Patient Outreach: Spoke with patient to schedule in RST. Pt declined PT Consult Pt identified by name and : YES, via phone Outreach Outcome/Action Spoke to patient or caregiver: Patient declined Reason for Outreach Care Gap or Scheduling/Wellness visits Payer: Payor: MEDICARE / Plan: MEDICARE A AND B / Product Type: Medicare / Care Gap Reviewed:: RST Reminder: Reminder note to check Health Maintenance for items below Health Maintenance items due: DEPRESSION SCREENING Never done HEPATITIS C SCREENING Never done DTAP,TDAP,TD(1 - Tdap) Never done LIPID SCREEN Never done DIABETES SCREEN Never done COLORECTAL CANCER SCREENING Never done SHINGRIX VACCINE(1 of 2) Never done BONE DENSITY Never done COVID-19 VACCINE(2 - Pfizer 3-dose series) due on 03/20/2021 ADVANCE DIRECTIVE DISCUSSION Never done Message Sent to Practice: No Navigation Signature: Marii Holcomb August 29, 2021 10:53 AM [facility] 08-29-2021 History of Present illness Narrative POPULATION HEALTH NAVIGATION OUTREACH Action/FYI Patient Outreach: Spoke with patient to schedule in RST. Pt declined PT Consult Pt identified by name and : YES, via phone Outreach Outcome/Action Spoke to patient or caregiver: Patient declined Reason for Outreach Care Gap or Scheduling/Wellness visits Payer: Payor: MEDICARE / Plan: MEDICARE A AND B / Product Type: Medicare / Care Gap Reviewed:: RST Reminder: Reminder note to check Health Maintenance for items below Health Maintenance items due: DEPRESSION SCREENING Never done HEPATITIS C SCREENING Never done DTAP,TDAP,TD(1 - Tdap) Never done LIPID SCREEN Never done DIABETES SCREEN Never done COLORECTAL CANCER SCREENING Never done SHINGRIX VACCINE(1 of 2) Never done BONE DENSITY Never done COVID-19 VACCINE(2 - Pfizer 3-dose series) due on 03/20/2021 ADVANCE DIRECTIVE DISCUSSION Never done Message Sent to Practice: No Navigation Signature: Marii Holcomb August 29, 2021 10:53 AM documented in this encounter [facility] 07-26-2021 Note HNO ID: [id number] Author: RT Elijah(R) Service: ? Author Type: Child Care Provider Type: Progress Notes Filed: 07/26/2021 1:11 PM Note Text: Radiology Service Progress Note DATE OF SERVICE: July 26, 2021 TIME: 1:10 PM PATIENT IDENTITY VERIFICATION COMPLETED USING TWO (2) STANDARD IDENTIFIERS: Name and Date of confirmed by patient verbally. FALL SCREENING: Has the patient had 2 falls in the last year or 1 fall with injury or currently using an Ambulatory Assistive Device (Walker, Cane, Wheelchair, Crutches, etc.)? No PATIENT GENDER DATA: Female. status: : No status: NO. PATIENT RELEVANT IMPLANT DATA REVIEWED: Yes ALLERGIES: Reviewed and unchanged CONTRAST ALLERGY: NO. EXAM: CT -CONTRAST INDUCED NEPHROPATHY RISK FACTORS: Patient age > 60 years CREATININE: Creatinine Date Value Ref Range Status 07/26/2021 0.65 0.58 - 0.96 mg/dL Final Estimated Glomerular Filtration Rate Date Value Ref Range Status 07/26/2021 95 >=60 mL/min/1.73m? Final Comment: Estimated Glomerular Filtration Rate (eGFR) is calculated using the 2020 CKD-EPI creatinine equation. This equation utilizes serum creatinine, sex, and age as parameters. The creatinine assay has traceable calibration to isotope dilution-mass spectrometry. Refer to KDIGO guidelines for clinical interpretation. In patients with unstable renal function, e.g. those with acute kidney injury, the eGFR may not accurately reflect actual GFR. P.O.C.T. RESULTS: POC done: Yes, See Lab Tab July 26, 2021 TREATMENT: N/A PERIPHERAL IV DATA: Ambulatory: A peripheral IV was started in the Left antecubital site with a Angio cath: 22 gauge. RADIOLOGY DEPARTMENT: CT; Exam(s) Completed: Abdomen/Pelvis SIGNATURE: RT Jace(R) PATIENT NAME: Danisha Ascencio DATE: July 26, 2021 TIME: 1:10 PM [facility] 07-16-2021 Note HNO ID: [id number] Author: Tricia Nieves MD Service: ? Author Type: Physician Type: Progress Notes Filed: 07/16/2021 9:25 AM Note Text: Danisha Ascencio is a 71 year old female who presents for problem visit for vaginal spasms for past few months. Mostly happens when she gets a hot flash. Spasms are sharp, last a couple of minutes then resolve. They do not happen w/ BM or urination. No vaginal bleeding. Has some urgency of urination but not w/ the spasm feeling. Happens daily lately. Never happens when she is sleeping. No vaginal bleeding. No constipation. No blood in stools. Very active. Very active, swims and dances daily. Not necessarily related to activity. Doesn't limit activity. No traumas, no changes in medications. OB History T3 L3 SAB1 IAB0 Ectopic0 Multiple0 Live Births3 Fruit Packer History LMP: Postmenopausal Age at Menarche: Age at First : Age at Menopause: Fruit Packer History Comments: Sexual Activity: Not Asked; No partner data on record Contraception: No contraception data on record PAST MEDICAL HISTORY Diagnosis Date - DDD (degenerative disc disease) - Kidney stone - Lung cancer (HCC) PAST SURGICAL HISTORY Procedure Laterality Date - ARTHRP KNE CONDYLEANDPLATU MEDIALANDLAT COMPARTMENTS Left 08/08/2019 - BACK SURGERY HX 2014 low back - BUNIONECTOMY, LAPIDUS-TYPE right x2 - CATARACT SURGERY, COMPLEX Bilateral - DELIVERY ONLY 1970,1973,1980 , low transverse - DANDC (MISSED AB 1ST TRIMESTER) 1979 - KNEE SURGERY HX Left 07/2017 torn miniscus - LOBECTOMY, SEGMENT 2009 left upper lobe FAMILY HISTORY Problem Relation Age of Onset - Emphysema Father - other (Mental illness) Mother Social History Tobacco Use - Smoking status: Never Smoker - Smokeless tobacco: Never Used Vaping Use - Vaping Use: Never used Substance Use Topics - Alcohol use: No - Drug use: No Current Outpatient Medications Medication Sig - atorvastatin (LIPITOR) 10 mg tablet Take 10 mg by mouth. - aspirin 81 mg chewable tablet 81 mg. - ergocalciferol, vitamin D2, (DRISDOL) 50,000 unit capsule Take 50,000 Units by mouth. - esomeprazole (NEXIUM) 40 mg capsule Take 40 mg by mouth. - ibuprofen 800 mg ORAL tablet Take 800 mg by mouth every 6 hours as needed. - COMPOUNDED PRESCRIPTION Patient has a tens unit. - lidocaine 5 %(700 mg/patch) TOPICAL Apply 1 Patch as directed once daily. TO AFFECTED AREA. REMOVE AFTER 12 HOURS. No current facility-administered medications for this visit. Allergies As of Date: 07/16/2021 Allergen Noted Reaction SULFA (SULFONAMIDE ANTIBIOTICS) 05/03/2011 Other: See Comments Fully Assessed 07/16/2021 REVIEW OF SYSTEMS Abdomen: No bloating, early satiety, indigestion, or increased flatulence. No abdominal pain, nausea, vomiting, diarrhea, or constipation. Bladder: No dysuria, gross hematuria, urinary frequency, urinary urgency, or incontinence. Breast: No breast lumps, nipple d/c, overlying skin changes, redness or skin retraction. Expanded ROS: N/A Allergies and current medication updated:Yes EXAM: BP 112/64 Ht 5' 4.5 (1.64m) Wt 168 lb (76.2kg) BMI 28.40 kg/(m2). GENERAL: pleasant, female in no apparent distress HEENT: Normocephalic, atraumatic, mucus membranes moist and no lesions NECK: Supple, full range of motion, no adenopathy and thyroid normal DERMATOLOGY: Normal, without lesions, non-icteric and non-hirsute ABDOMEN: soft, non-tender, no masses and scar noted, no hernia or tenderness PELVIC: external genitalia normal, normal Bartholin's glands, urethra, [place]'s glands, no vulvar lesions, no cervical lesions, good vaginal support, physiologic discharge present, normal appearing perineal body and perianal region BIMANUAL: uterus normal size, shape and consistency, no adnexal masses and non-tender ASSESSMENT AND PLAN: check pelvic US some pelvic floor spasm on exam consider pelvic floor PT Medical Decision Making Tricia Nieves MD [facility] Evaluation + Plan note Future Appointments Appointment Date:03/07/2022 11:00:00 AM Scheduled Provider:SHASHI GREEN Location:[facility] Appointment Type:CV [facility] Evaluation note Diagnosis Influenza A- Primary Influenza with other respiratory manifestations Flu-like symptoms Influenza with other respiratory manifestations Acute cough [facility] N[facility] No data available for this section [facility] Hospital Discharge instructions No data available for this section [facility] Progress note No data available for this section [facility] Summary Purpose Family History No Family History Records FoundNo Family History Records FoundNo Family History Records Found Advance Directives No Advanced Directives Records FoundNo Advanced Directives Records FoundNo Advanced Directives Records Found Additional Source Comments INFORMATION SOURCE (unrecogn ized section and content) DATE CREATED AUTHOR 08/15/2021 [facility] ([place]) DATE CREATED AUTHOR AUTHOR'S ORGANIZ ATION 08/31/2021 [facility] DATE CREATED AUTHOR AUTHOR'S ORGANIZ ATION 05/19/2022 [facility] Source Comments (unrecognize d section and content) In the event this informatio n is protected by the Federal Confidentiality of Alcohol and Drug Abuse Patient Records regulations: The Federal rules restrict any use of the information to criminally investigate or prosecute any alcohol or drug abuse patient.[facility] Care Teams (unrecognized sec tion and content) Pipeline Technician Relationship Specialty Start Date End Date Chuy Knapp DO PCP - General Family Practice 04/24/11 Pipeline Technician Relationship Specialty Start Date End Date Chuy Knapp DO [address] [place] [address] PCP - General 08/16/08 Reason for Visit (unrecogniz ed section and content) Reason Comments Cough FLU POSITIVE ON . SYMPTOMS STARTED WORSENING FRIDAY Care Team (unrecognized sect ion and content) Care Team Personnel Name: CHUY KNAPP DO Member Role: Primary Care Physician Address: Address: [facility] [address] [place] [address] [place] [address] Care Team Related Persons Name: DOROTHY ASCENCIO Address: [place] [address] [place] [address] [address] [place], [place] [id number] FOR RECORDS PERTAINING TO PATIENTS WHO ARE OR HAVE BEEN ENROLLED IN A CHEMICAL DEPENDENCY/SUBSTANCEABUSE PROGRAM, SOME INFORMATION MAY BE OMITTED. This clinical summary was aggregated from multiple sources. Caution should be exercised in using it in the provision of clinical care. This summary normalizes information from multiple sources, and as a consequence, information in this document may materially change the coding, format and clinical context of patient data. In addition, data may be omitted in some cases. CLINICAL DECISIONS SHOULD BE BASED ON THE PRIMARY CLINICAL RECORDS. [facility] [employer] [facility]. provides no warranty or guarantee of the accuracy or completeness of information in this document.
== END | disposition home or self-care (01) ==
LOC: MTRAD 09:09
PROVIDERS: PCP Family Medicine; Referring Provider Nurse Practitioner; Visit Provider Nurse Practitioner
DX: M54.6 Pain in thoracic spine (principal)
CPT/HCPCS: 72070

== ENCOUNTER → 2024-04-28 | Outpatient (CLI) | payer MEDICARE, OTHER, SELFPAY | END | disposition home or self-care (01) | LOC: LABSPEC 12:16 | PROVIDERS: Referring Provider Physician Assistant; Visit Provider Physician Assistant | DX: N39.0 Urinary tract infection, site not specified (principal) | CPT/HCPCS: 87077; 87086; 87088; 87186 ==

== ENCOUNTER 2024-08-22 08:46 | Emergency (ER) | payer MEDICARE, OTHER, SELFPAY ==
[2024-08-22 08:46] VITALS: BP 136/86; PULSE 72; RESP 14; TEMP 36.1; O2SAT 98; BMI 28.2
--- NOTE | 2024-08-22 09:43 | CT_ITS ---
PROCEDURE: CT HEAD, CTA HEAD AND NECK W/ CONTRAST 08/22/2024 REASON FOR EXAM: 74-year-old female, left facial, nose and mouth numbness. Fall in May and hit head, still feels foggy. Similar episode approximately 1 year ago without cause found. TECHNIQUE: CT imaging of the head was performed with coronal and sagittal recon imaging. CTA imaging of the head and neck from the aortic arch to the skull vertex with intravenous contrast. Coronal and Sagittal reconstruction series were provided. 3D, 3D post processing, 3D reconstructions, Maximum intensity projection (MIPs) Volume rendering and Shaded surface rendering was provided. CONTRAST: Isovue-300 VOLUME: 100mL One or more dose reduction techniques were used (e.g., Automated exposure control, adjustment of the mA and/or kV according to patient size, use of iterative reconstruction technique). RADIATION DOSE SUMMARY: CTDlvol: 100 mGy DLP: 1300 mGycm COMPARISON: Brain MRI 08/02/2022. FINDINGS: Noncontrast CT head: The cerebral and cerebellar volume is normal for patient age. The ventricles and subarachnoid spaces are normal for patient age. No ventriculomegaly. Mild scattered supratentorial white matter hypodensities. The wood-white matter interfaces are otherwise maintained. No acute intracranial hemorrhage or herniation. Moderate right and mild left mucosal thickening of the maxillary sinuses. The visualized paranasal sinuses and mastoids are otherwise well- aerated. Unremarkable orbits. No acute calvarial fracture or scalp hematoma. CTA: Three-vessel aortic arch without narrowing or calcific plaque. The bilateral vertebral arteries are widely patent. No calcific plaque of the bilateral common, internal or external carotid arteries. 0% stenosis by NASCET criteria. No calcific plaque of the carotid siphons. The bilateral anterior, middle and posterior cerebral arteries are widely patent. No aneurysm or arteriovenous malformation. Major venous structures: Unremarkable. Other findings: Cervical spondylosis with degenerative grade 1 retrolisthesis of C5 onto C6. Biapical scarring. CT/CTA Head AND Neck W/ Contrast IMPRESSION: 1. No acute intracranial hemorrhage or herniation. 2. No large vessel occlusion, AVM or aneurysm. 3. Findings of mild chronic microvascular ischemic changes. Reading Location: [id number]
--- NOTE | 2024-08-22 09:45 | EKG12_ITS ---
Test Reason : NEURO Blood Pressure : */* mmHG Vent. Rate : 61 BPM Atrial Rate : 61 BPM P-R Int : 116 ms QRS Dur : 72 ms QT Int : 444 ms P-R-T Axes : 62 54 60 degrees QTcB Int : 446 ms Normal sinus rhythm Otherwise normal ECG Confirmed by THOMAS VELAZQUEZ, KAUSHAL ([id number]), news copy editor LACHELLE MCLAUGHLIN ([id number]) on 08/24/2024 8:23:51 AM Referred By: Confirmed By: KAUSHAL GUZMAN MD
[2024-08-22 09:58] LABS: Absolute Lymphocyte Count 1.26 X10^3/uL (0.83-4.51); Absolute Neutrophil Count 3.1 X10^3/uL (2.0-7.7); Basophil# 0.03 X10^3/uL; Basophil% 0.6 % (0-1); Eosinophil# 0.06 X10^3/uL; Eosinophils% 1.2 % (0-5); Hematocrit 37.2 % (37-47); Hemoglobin 12.2 g/dL (12.0-15.0); Lymphocyte # 1.26 X10^3/ul (0.83-4.51); Lymphocyte % 25.9 % (19-41); Mean Corp Hgb Conc 32.8 g/dL (32-36); Mean Corpuscular Hgb 29.4 pg (27.0-32.0); Mean Corpuscular Volume 89.6 fL (81-99); Mean Platelet Vol. 10.6 fl (6.2-12.0); Monocyte# 0.36 X10^3/uL; Monocyte% 7.4 % (0-10); NRBC Flagged by Analyzer 0 % (0-5); Neutrophil # 3.13 X10^3/uL (2.7-7.7); Neutrophil % 64.5 % (47-70); Platelet Count 200 K/mm3 (150-450); RBC Distribution Width CV 14.9 % (11.6-14.6); RBC Distribution Width SD 48.8 fl (35.1-43.9); Red Blood Count 4.15 M/mm3 (4.2-5.4); White Blood Count 4.9 K/mm3 (4.4-11.0)
[2024-08-22 10:21] LABS: Anion Gap 9 (5-15); BUN 19 mg/dL (4-19); BUN/Creat Ratio 25.9 RATIO (10-20); Calcium,Total 8.8 mg/dL (7.6-11.0); Carbon Dioxide 23.4 mmol/L (21.0-32.0); Chloride 109 mmol/L (98-108); Creatinine, Serum 0.71 mg/dL (0.70-1.20); EST Glomerular Filtration Rate 89 (>60); Estimated Creatinine Clearance 61.95 ml/min (50-250); Glucose 96 mg/dL (70-99); Potassium 4.1 mmol/L (3.3-5.1); Sodium Level 141 mmol/L (133-145)
[2024-08-22 11:12] VITALS: BP 130/68; PULSE 63; RESP 11; O2SAT 98
--- NOTE | 2024-08-22 11:35 | EX.ED.DYSGE1 ---
HPI History of Present Illness Chief Complaint: Numb/Ting Informant: patient Narrative Narrative: 74-year-old female presenting to the emergency room with paresthesias of the face. Patient states that when she woke this morning she noticed that the left side of her nose and cheek felt tingly/numb. States extends down towards the corner of her mouth. She denies any vision changes speech changes arm or leg symptoms. She denies any drooling. She denies any other facial paresthesias. She denies any rashes. No headache. She did not have any difficulty brushing her teeth has not seen any facial droop. She looked her symptoms up of [employer] and had many concerns so she came to emergency. She notes his symptoms have improved but are still present since waking. [facility] Medical History Impacted cerumen, left ear Dysuria HLD (hyperlipidemia) Bruises easily History of shingles Vitamin D deficiency Sciatica Lumbar radiculopathy GERD (gastroesophageal reflux disease) Lung cancer Anxiety Home Medications ?Medication ?Instructions ?Recorded ?Last Taken ?Type acetaminophen 500 mg tablet 1,000 mg (2 x 500 mg) PO Q8 #90 08/10/19 Unknown Rx tabs atorvastatin 10 mg tablet 10 mg PO QHS cholesterol 06/13/20 Unknown History diclofenac sodium 1 % topical gel 4 g topical .QID PRN Pain Or Fever 07/27/21 Unknown Rx #100 grams albuterol sulfate 90 mcg/actuation 1 - 2 puff inhalation Q6H PRN 03/10/22 Unknown Rx aerosol inhaler (ProAir HFA) shortness of breath or wheezing #8.5 grams ergocalciferol (vitamin D2) 1,250 50,000 unit PO QWEEK supplement 01/13/23 Unknown Rx mcg (50,000 unit) capsule #20 caps vibegron 75 mg tablet 75 mg PO DAILY 02/27/23 Unknown History magnesium oxide 400 mg PO DAILY #90 caps 03/18/23 Unknown Rx Adacel(Tdap Adolesn/Adult)(PF) 0.5 ml IM ONCE #0.5 mL 05/08/23 Unknown Clinic 2Lf-(2.5-5-3-5mcg)-5 Lf/0.5 mL IM susp (diph,pertuss(acel),tet vac(PF)) esomeprazole magnesium 40 mg 40 mg PO QDAY gerd #90 caps 02/26/24 Unknown Rx capsule,delayed release mupirocin 2 % topical ointment 1 applic topical BID #15 grams 08/12/24 Unknown Rx codeine 10 mg-guaifenesin 100 mg/5 See Rx Instructions PO Q6H PRN 08/13/24 Unknown Rx mL oral liquid cough #120 mL doxycycline monohydrate 100 mg 100 mg PO BID 08/22/24 Unknown History capsule Allergy/AdvReac Type Severity Reaction Status Date / Time cephalexin Allergy Intermediate Rash Verified 08/22/24 08:46 nitrofurantoin Allergy Intermediate Rash Verified 08/22/24 08:46 Sulfa (Sulfonamide Allergy Intermediate sores in Verified 08/22/24 08:46 Antibiotics) mouth amoxicillin (From Amoxil) AdvReac Intermediate yeast & Verified 08/22/24 08:46 bladder infections Family History Aunt Colon cancer Diabetes Mother Thyroid disorder Heart disease Son Hypercholesteremia Grandmother Heart disease Father COPD (chronic obstructive pulmonary disease) Surgical History History of total left knee replacement History of bilateral cataract extraction History of lateral meniscus repair of left knee History of cystoscopy history of bunionectomy History of colonoscopy History of lobectomy of lung History of back surgery History of esophagogastroduodenoscopy (EGD) History of section Social History Smoking Status: Former smoker quit date: 05/26/08 Tobacco: How many years used: 40 alcohol intake: current alcohol intake frequency: holidays/special occasions only substance use type: does not use ROS ROS ED Constitutional Constitutional ED: Denies chills, fever(s) or weight loss Eyes Eyes: Denies change in vision or diplopia ENT ENT ED: Denies ear pain, rhinorrhea or sore throat Cardiovascular Cardiovascular: Denies chest pain, orthopnea, palpitations or racing heartbeat Respiratory/Chest Respiratory/Chest: Denies cough, dyspnea or orthopnea Gastrointestinal Gastrointestinal: Denies abdominal pain, diarrhea, nausea or vomiting Genitourinary Genitourinary ED: Denies dysuria, hematuria or urinary frequency Musculoskeletal Musculoskeletal: Denies arthralgias, back pain, myalgias or neck pain Integumentary Denies abscess or rash Neurologic Neurologic: Reports paresthesias; Denies headache(s) or weakness Psychiatric Psychiatric: Denies anxiety, depression, suicidal ideation or suicidal thoughts Endocrine Endocrinology: Denies polydipsia, polyphagia or polyuria Allergic/Immunologic Allergic/Immunologic ED: Denies mouth swelling, tongue swelling or urticaria EXAM Physical Exam Const Vital Signs: 08/22/24 08:46 08/22/24 11:12 Temperature 96.9 F L Temperature Source Temporal Pulse Rate 72 63 Respiratory Rate 14 11 L Blood Pressure 136/86 H 130/68 H Blood Pressure Mean 102 88 Pulse Ox 98 98 Oxygen Delivery Method Room Air Room Air Positive well nourished and well developed General Appearance ED: well developed HEENT Reports normocephalic, head/scalp atraumatic and moist mucous membranes Eyes PERRL and EOMs intact bilaterally Neck no lymphadenopathy, supple and no JVD Resp normal respiratory effort and clear to auscultation bilaterally Cardio regular rate, regular rhythm and no murmurs GI normal to inspection, nondistended, normoactive bowel sounds and non-tender Palpation: soft Back/Spine no CVA tenderness and normal ROM Extremity normal to inspection General Extremety ED: Negative for edema General Extremity: Negative for edema Neuro oriented x3 and CN's II-XII intact bilaterally Neuro Narrative: NIH is 0. She reports tingling sensation left side of nose to the corner of a mouth and over the maxillary sinus region. I do not appreciate any facial droop. Tongue does not deviate from midline. Sensorium / Orientation: alert Motor Exam: strength 5/5 throughout Psych mental status grossly normal Mood & Affect: Negative for depressed or tearful Skin no rashes or lesions noted and no wounds MDM MDM MDM Narrative Medical decision making narrative: Differential diagnosis includes but not limited to stroke (ischemic hemorrhagic) aneurysm intracranial hemorrhage/hematoma neuropraxia electrolyte abnormalities Mckenzie's palsy shingles TIA Patient symptoms are confined to almost a V2 distribution. However there is no facial paralysis. CTA of the head and neck shows no acute findings. White count 4.9 hemoglobin 12.2. Sodium potassium calcium within normal limits glucose of 96. She is in a normal sinus rhythm on the monitor. Blood pressure has been stable. On repeat examination symptoms have resolved. I do not know if this was a degree of neuropraxia like she slept wrong and injured the V2 nerve. I do not know if this is sensation and she may develop shingles or Mckenzie's palsy. We talked about small stroke. However her symptoms have resolved. I have been asked that she follow-up with her primary care later this week. Return if worsening or concerns. Patient is comfortable with this plan History & Record Review Discussion w/independent historian: Patient Lab Data Attestation: I reviewed the patient's lab results. Labs: Laboratory Results - last 24 hr 08/22/24 09:20 WBC 4.9 RBC 4.15 L Hgb 12.2 Hct 37.2 MCV 89.6 MCH 29.4 MCHC 32.8 RDW Std Deviation 48.8 H RDW Coeff of Richard 14.9 H Plt Count 200 MPV 10.6 Immature Gran % (Auto) 0.400 Neut % (Auto) 64.5 Lymph % (Auto) 25.9 Garza % (Auto) 7.4 Eos % (Auto) 1.2 Baso % (Auto) 0.6 Absolute Neuts (auto) 3.1 Absolute Lymphs (auto) 1.26 Nucleated RBC % 0 Sodium 141 Potassium 4.1 Chloride 109 H Carbon Dioxide 23.4 Anion Gap 9 BUN 19 Creatinine 0.71 Estim Creat Clear Calc 61.95 Est GFR (MDRD) Non-Af 89 BUN/Creatinine Ratio 25.9 H Glucose 96 Calcium 8.8 Radiography Diagnostic Testing: Clinical Impression(s) from Imaging Studies Head/Neck CTA 08/22/24 09:43 IMPRESSION: 1. No acute intracranial hemorrhage or herniation. 2. No large vessel occlusion, AVM or aneurysm. 3. Findings of mild chronic microvascular ischemic changes. Reading [facility] EKG Initial EKG: Attestation: I personally reviewed and interpreted this EKG as follows: Comments: Sinus rhythm ventricular rate of 61 bpm Discharge Plan Triage Chief Complaint: Numb/Ting ED Provider: Fred Langley Dx/Rx/DC Orders Clinical Impression: Facial paresthesia Instructions: ED Paraesthesias Prescriptions: No Action atorvastatin 10 mg tablet 10 mg PO QHS albuterol sulfate [ProAir HFA] 90 mcg/actuation HFA aerosol inhaler 1 - 2 puff inhalation Q6H PRN (Reason: shortness of breath or wheezing) Qty: 8.5 3RF vibegron 75 mg tablet 75 mg PO DAILY magnesium oxide 400 mg magnesium capsule 400 mg PO DAILY Qty: 90 1RF diph,pertuss(acel),tet vac(PF) [Adacel(Tdap Adolesn/Adult)(PF)] 2 Lf-(2.5-5-3-5 mcg)-5Lf/0.5 mL suspension 0.5 ml IM ONCE Qty: 0.5 0RF mupirocin 2 % ointment 1 applic topical BID Qty: 15 0RF acetaminophen 500 MG tablet 1,000 mg PO Q8 Qty: 90 0RF doxycycline monohydrate 100 mg capsule 100 mg PO BID diclofenac sodium 1 % gel 4 g TOPICAL .QID PRN (Reason: Pain Or Fever) Qty: 100 2RF ergocalciferol (vitamin D2) 1,250 mcg (50,000 unit) capsule 50,000 unit PO QWEEK Qty: 20 1RF esomeprazole magnesium 40 mg capsule,delayed release(DR/EC) 40 mg PO QDAY Qty: 90 1RF codeine-guaifenesin 10-100 mg/5 mL liquid See Rx Instructions PO Q6H PRN (Reason: cough) Qty: 120 0RF Rx Instructions: 5-10ml orally every 6 hours PRN; Primary Care Provider: Bean Knapp Referrals: Bean Knapp, DO [Primary Care Provider] - 3-5 Days Print Language: Indonesian Disposition Disposition: Home, Self Care NIHSS NIHSS 1a. Level of Consciousness: Alert; keenly responsive 1b. LOC Questions: Answers BOTH questions correctly. 1c. LOC Commands: Performs both tasks correctly. 2. Best Gaze: Normal 3. Visual: No visual loss 4. Facial Palsy: Normal symmetrical movements 5a. Left Arm: No drift; arm holds 90 (or 45) degrees for full 10 seconds 5b. Right Arm: No drift; arm holds 90 (or 45) degrees for full 10 seconds 6a. Left Leg: No drift; leg holds 30-degree position for full 5 seconds 6b. Right Leg: No drift; leg holds 30-degree position for full 5 seconds 7. Limb Ataxia: Absent 8. Sensory: Normal; no sensory loss 9. Best Language: No aphasia; normal 10. Dysarthria: Normal 11. Extinction and Inattention: No abnormality Total: 0
[2024-08-22 12:45] VITALS: BP 130/68; PULSE 63; RESP 11; TEMP 36.4; O2SAT 98
== END 2024-08-22 13:01 | disposition home or self-care (01) ==
PROVIDERS: Emergency Provider Emergency Medicine; PCP Family Medicine; Visit Provider Emergency Medicine
DX: R20.2 Paresthesia of skin (principal); E78.5 Hyperlipidemia, unspecified; E55.9 Vitamin D deficiency, unspecified; K21.9 Gastro-esophageal reflux disease without esophagitis; Z88.0 Allergy status to penicillin; Z88.2 Allergy status to sulfonamides; Z90.2 Acquired absence of lung [part of]; Z79.899 Other long term (current) drug therapy; Z87.891 Personal history of nicotine dependence; Z85.118 Personal history of other malignant neoplasm of bronchus and lung
CPT/HCPCS: 70496; 70498; 80048; 85025; 93005; 99284; Q9967; A4216

== ENCOUNTER → 2024-09-10 | Outpatient (CLI) | payer MEDICARE, OTHER, SELFPAY ==
--- NOTE | 2024-09-10 13:15 | BI_ITS ---
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 Computer aided detection. COMPARISON: Prior exam(s) dated 05/09/2023, 07/26/2021. FINDINGS: TISSUE DENSITY: The breast tissue is composed of scattered area of fibroglandular density. Bilateral Breast Mammographic Findings: No significant masses, calcifications or other abnormalities are identified. BI/SCRN MAMM (CAD)W/LISA BILAT IMPRESSION: Right Breast: BIRADS 1 NEGATIVE. Left Breast: BIRADS 1 NEGATIVE. OVERALL FINAL ASSESSMENT: BIRADS 1 NEGATIVE. RECOMMENDATION: Routine annual follow-up in 1 Year A letter with findings and recommendations will be mailed to the patient. Reading Location: [facility]
== END | disposition home or self-care (01) ==
LOC: OPBI 13:11
PROVIDERS: PCP Family Medicine; Referring Provider Family Medicine; Visit Provider Family Medicine
DX: Z12.31 Encounter for screening mammogram for malignant neoplasm of breast (principal)
CPT/HCPCS: 77063; 77067

== ENCOUNTER → 2024-12-07 | Outpatient (CLI) | payer MEDICARE, OTHER, SELFPAY ==
--- NOTE | 2024-12-07 14:07 | RAD_ITS ---
EXAM: XR Right Knee, 3 Views CLINICAL INDICATION: PAIN TECHNIQUE: Three views of the right knee. COMPARISON: No relevant prior studies available. FINDINGS: BONES/JOINTS: Moderate degenerative changes of the medial compartment of the knee joint. No acute fracture. No dislocation. SOFT TISSUES: Unremarkable. RAD/Knee 3 Views IMPRESSION: Degenerative changes as above. Reading Location: [facility]
--- NOTE | 2024-12-07 14:07 | RAD_ITS ---
EXAM: XR Right Tibia and Fibula, 2 Views CLINICAL INDICATION: PAIN TECHNIQUE: Frontal and lateral views of the right tibia and fibula. COMPARISON: No relevant prior studies available. FINDINGS: BONES/JOINTS: Unremarkable. No acute fracture. No dislocation. SOFT TISSUES: Unremarkable. No radiopaque foreign body. RAD/Tibia & Fibula 2 Views IMPRESSION: No acute fracture. Reading Location[facility]
--- NOTE | 2024-12-07 14:07 | RAD_ITS ---
EXAM: XR Right Tibia and Fibula, 2 Views CLINICAL INDICATION: PAIN TECHNIQUE: Frontal and lateral views of the right tibia and fibula. COMPARISON: No relevant prior studies available. FINDINGS: BONES/JOINTS: Unremarkable. No acute fracture. No dislocation. SOFT TISSUES: Unremarkable. No radiopaque foreign body. RAD/Tibia & Fibula 2 Views IMPRESSION: No acute fracture. Reading [facility]
--- NOTE | 2024-12-07 14:07 | RAD_ITS ---
EXAM: XR Right Knee, 3 Views CLINICAL INDICATION: PAIN TECHNIQUE: Three views of the right knee. COMPARISON: No relevant prior studies available. FINDINGS: BONES/JOINTS: Moderate degenerative changes of the medial compartment of the knee joint. No acute fracture. No dislocation. SOFT TISSUES: Unremarkable. RAD/Knee 3 Views IMPRESSION: Degenerative changes as above. Reading Location[facility]
== END | disposition home or self-care (01) ==
LOC: MTRAD 14:05
PROVIDERS: PCP Family Medicine; Referring Provider Physician Assistant; Visit Provider Physician Assistant
DX: M79.604 Pain in right leg (principal)
CPT/HCPCS: 73562; 73590

== ENCOUNTER → 2024-12-13 | Outpatient (CLI) | payer MEDICARE, OTHER, SELFPAY ==
[2024-12-13 13:19] LABS: Anion Gap 11 (5-15); BUN 20 mg/dL (4-19); BUN/Creat Ratio 31.8 RATIO (10-20); Calcium,Total 9.2 mg/dL (7.6-11.0); Carbon Dioxide 22.9 mmol/L (21.0-32.0); Chloride 111 mmol/L (98-108); Glucose 102 mg/dL (70-99); Potassium 3.9 mmol/L (3.3-5.1); Pro- Brain NATRIURETIC PEPTIDE 90 pg/mL (<=900)
== END | disposition home or self-care (01) ==
LOC: LAB 11:42
PROVIDERS: PCP Family Medicine; Referring Provider Nurse Practitioner Family; Visit Provider Nurse Practitioner Family
DX: R06.09 Other forms of dyspnea (principal); R60.9 Edema, unspecified
CPT/HCPCS: 36415; 80048; 83880

== ENCOUNTER → 2025-01-14 | Outpatient (CLI) | payer MEDICARE, OTHER, SELFPAY | END | disposition home or self-care (01) | LOC: LABSPEC 14:39 | PROVIDERS: PCP Family Medicine; Visit Provider Family Medicine | DX: R30.0 Dysuria (principal) | CPT/HCPCS: 87086; 87088 ==

== ENCOUNTER 2025-01-19 08:02 | Outpatient (RCR) | payer MEDICARE, OTHER, SELFPAY ==
[2025-01-19 08:23] VITALS: BP 138/84; PULSE 61; RESP 16; TEMP 36; BMI 27.6
--- NOTE | 2025-01-19 10:06 | PCM.WC.HP ---
History of Present Illness Date of Service: 01/19/25 Chief Complaint: Follow-up right leg alvarez trauma. History of Wound: 74-year-old white female who fell in her closet and had a superficial avulsion laceration from under her knee all the way down to her ankle. She went to urgent care at [facility] and they sent her here she also thought she had a urinary tract infection so they put her on ciprofloxacin and she has been dressing it with [id number] antibiotics Epsom salt soaks and Band-Aids. [facility] Medical History (Reviewed 01/19/25 @ 10:07 by Hayde Sandoval DIRECTOR OF MATERIALS MANAGEMENT, DIRECTOR OF MATERIALS MANAGEMENT-C) Abnormal bruising Impacted cerumen, left ear Dysuria HLD (hyperlipidemia) Bruises easily History of shingles Vitamin D deficiency Sciatica Lumbar radiculopathy GERD (gastroesophageal reflux disease) Lung cancer Anxiety Home Medications ?Medication ?Instructions ?Recorded ?Last Taken ?Type atorvastatin 10 mg tablet 10 mg PO QHS cholesterol 06/13/20 Unknown History diclofenac sodium 1 % topical gel 4 g topical .QID PRN Pain Or Fever 07/27/21 Unknown Rx #100 grams albuterol sulfate 90 mcg/actuation 1 - 2 puff inhalation Q6H PRN 03/10/22 Unknown Rx aerosol inhaler (ProAir HFA) shortness of breath or wheezing #8.5 grams ergocalciferol (vitamin D2) 1,250 50,000 unit PO QWEEK supplement 01/13/23 Unknown Rx mcg (50,000 unit) capsule #20 caps magnesium oxide 400 mg PO DAILY #90 caps 03/18/23 Unknown Rx esomeprazole magnesium 40 mg 40 mg PO QDAY gerd #90 caps 09/06/24 Unknown Rx capsule,delayed release ipratropium bromide 21 mcg (0.03 2 spray intranasal BID-TID PRN 11/04/24 Unknown Rx %) nasal spray postnasal drainage #30 mL acetaminophen 500 mg tablet 1,000 mg PO Q8 PRN fever or pain 11/08/24 Unknown History ciprofloxacin HCl 500 mg tablet 500 mg PO BID #14 tabs 01/14/25 Unknown Rx meloxicam 15 mg tablet 15 mg PO DAILY 01/19/25 Unknown History oxycodone 5 mg capsule 5 mg PO Q6H 01/19/25 Unknown History tramadol 50 mg tablet 50 mg PO Q6H PRN pain 01/19/25 Unknown History Allergy/AdvReac Type Severity Reaction Status Date / Time cephalexin Allergy Intermediate Rash Verified 12/21/24 14:56 nitrofurantoin Allergy Intermediate Rash Verified 12/21/24 14:56 Sulfa (Sulfonamide Allergy Intermediate sores in Verified 12/21/24 14:56 Antibiotics) mouth amoxicillin (From Amoxil) AdvReac Intermediate yeast & Verified 12/21/24 14:56 bladder infections Family History Aunt Colon cancer Diabetes Mother Thyroid disorder Heart disease Son Hypercholesteremia Grandmother Heart disease Father COPD (chronic obstructive pulmonary disease) Surgical History History of total left knee replacement History of bilateral cataract extraction History of lateral meniscus repair of left knee History of cystoscopy history of bunionectomy History of colonoscopy History of lobectomy of lung History of back surgery History of esophagogastroduodenoscopy (EGD) History of section Social History Smoking Status: Former smoker quit date: 05/26/08 Tobacco: How many years used: 40 alcohol intake: current alcohol intake frequency: holidays/special occasions only substance use type: does not use ROS Constitutional Constitutional: Reports systems reviewed and no addt'l complaints, except as documented Eyes Eyes: Reports systems reviewed and no addt'l complaints, except as documented ENT HEENT: Reports systems reviewed and no addt'l complaints, except as documented Cardiovascular Cardiovascular: Reports systems reviewed and no addt'l complaints, except as documented Respiratory/Chest Respiratory/Chest: Reports systems reviewed and no addt'l complaints, except as documented Gastrointestinal Gastrointestinal: Reports systems reviewed and no addt'l complaints, except as documented Genitourinary Genitourinary: Reports systems reviewed and no addt'l complaints, except as documented Musculoskeletal Musculoskeletal: Reports systems reviewed and no addt'l complaints, except as documented Integumentary Integumentary: Reports wounds and other Details: Right leg is slight and edematous and has an open wound on the right alvarez area from trauma in November. Bleeding under control no sign of infection Neurologic Neurologic: Reports systems reviewed and no addt'l complaints, except as documented Psychiatric Psychiatric: Reports systems reviewed and no addt'l complaints, except as documented Endocrine Endocrinology: Reports systems reviewed and no addt'l complaints, except as documented Hematologic/Lymphatic Hematologic/Lymphatic: Reports systems reviewed and no addt'l complaints, except as documented Allergic/Immunologic Allergic/Immunologic: Reports systems reviewed and no addt'l complaints, except as documented Vital Signs Vital Signs Vital Signs: 01/19/25 08:23 Temperature 96.8 F L Temperature Source Temporal Pulse Rate 61 Respiratory Rate 16 Blood Pressure 138/84 H Blood Pressure Mean 102 Blood Pressure Source Monitor Weight Weight: 160 lb 11.834 oz Body Mass Index (BMI) 27.6 Physical Exam Const oriented x3 General Appearance: cooperative Exam Limitations: no limitations HEENT normocephalic Head and Scalp: normal to inspection Face and Sinus: normal facial exam Nose: external nose normal General Ear: hearing grossly impaired External Ear: external ears normal Mouth: oral and palatal mucosa normal Eyes PERRL General Eye: normal appearance of both eyes Neck full ROM General: normal visual inspection Resp normal respiratory effort Effort and Inspection: able to speak in complete sentences Auscultation: clear to auscultation bilaterally Cardio regular rate and regular rhythm Palpation: normal PMI Rate: regular rate Rhythm: regular rhythm GI Auscultation: normoactive bowel sounds Palpation: soft and no hepatosplenomegaly external exam normal Back/Spine Cervical Spine: cervical ROM normal Thoracic Spine / Upper Back: normal to inspection Lumbar Spine / Lower Back: normal to inspection Extremity normal to inspection General Extremity: normal exam except as noted Skin Wound Narrative: Open deep wound on right lower leg after fall in her closet in November. Most of the wound has been healed except for this 1 portion that was extra deep Neuro oriented x3 Psych Appearance: grossly normal Speech: normal speech Thought Content: normal thought content Judgement: judgement good Debridement Note Debridement Note Wound debrided: Nonpressure ulcer traumatic Laterality: Right Type of Debridement: Excisional debridement Anesthesia Used: 5% Lidocaine Gel Depth: Down to and including healthy tissue and in the subcutaneous layer Percentage of wound debrided: 100 Instrument Used: 5mm curette Tissue Removed: Devitalized tissue fibrin fat layer exposed Severity: Limited To Skin Breakdown Amount of bleeding with debridement: Mild Bleeding Controlled with: Compression and gauze Patient tolerated procedure: Patient tolerated procedure well Post-Debridement Measurements and Additional Note: Post-Debridement Measurements/Treatment WC - Nurse 1 - General Ulcer Assessment Start: 01/19/25 08:20 Freq: Status: Active Protocol: AARON Activity Type Activity Date Activity User E-sign Co-sign Detail Recorded Client Recorded Date Recorded By Document 01/19/25 08:23 DL [id number] 01/19/25 08:36 DL 01/19/25 08:23 WC - Today's Visit Information Type of service Initial Visit Arrival Mode Ambulatory Transfer Assistance None Patient Identification Verified (Name & Yes ) Patient Requires Transmission-Based No Precautions Height and Weight Height 5 ft 4 in Weight 160 lb 11.834 oz Weight in Pounds 160.7 lbs Body Mass Index (BMI) 27.6 BMI Classification Overweight Vital Signs Temperature (97.8 F-99.1 F) 96.8 F L Temperature Source Temporal Pulse Rate (60-100) 61 Pulse Location Monitor Respiratory Rate (12-18) 16 Respiratory rate source Observation Blood Pressure (90/60-120/80) 138/84 H Blood Pressure Mean 102 Source Monitor Pain Scale: 0-10 Numeric Is Patient Pain Free? Yes Lower Extremity Assessment/ Foot Assessment/ Toe Nail Assessment Left -Posterior Tibial Palpable Yes -Dorsalis Pedis Palpable Yes -Extremity Color Hemosiderin -Hair Growth on Legs No -Hair Growth on Toes No -Temperature of Extremity Warm -Capillary Refill Greater than 3 Seconds -Dependent Rubor No -Blanched when Elevated No -Lipodermatosclerosis No -Other Deformity No -Prior Foot Ulcer No -Charcot Joint No -Prior Amputation No -Thick No -Discolored No -Deformed No -Improper Length & Hygeine No Right -Popliteal Doppler Multiphasic -Dorsalis Pedis Palpable Yes -Extremity Color Hemosiderin -Hair Growth on Legs No -Hair Growth on Toes No -Temperature of Extremity Warm -Capillary Refill Less than 3 Seconds -Dependent Rubor No -Blanched when Elevated No -Lipodermatosclerosis No -Other Deformity No -Prior Foot Ulcer No -Charcot Joint No -Prior Amputation No -Thick No -Discolored No -Deformed No -Improper Length & Hygeine No Communication Assessment Preferred language Tristanian Able to Read Yes Able to Write Yes Right Hearing Abillity Normal Left Hearing Abillity Normal Visual Assistive Devices None Teaching Assessment Preferences Verbal,Written Barriers to Learning None Readiness To Learn Fair Willingness to Engage in Self Management Med Activies Readiness to Engage in Self Management Med Activities Anxiety Level Anxious Cooperation Cooperative Perception Coherent Interest in Health Problem Asks Questions Education Importance Acknowledges Need Does Patient Smoke tobacco or other No substances Smoking Status Former smoker Is Patient Diabetic No Functional Assessment Recent Decline in Ability to Perform Denies Any Declines Culture/Islam/Verifier Operator Cultural/Islam Needs that may affect No Treatment Plan Would you allow our hospital camera maker to No meet you for the purpose of spiritual/ emotional support? Verifier Operator to contact place of sabianism No WC - Nurse 1 - General Ulcer Measurement Start: 01/19/25 08:20 Freq: Status: Active Protocol: Activity Type Activity Date Activity User E-sign Co-sign Detail Recorded Client Recorded Date Recorded By Document 01/19/25 08:23 DL [id number] 01/19/25 08:36 DL 01/19/25 08:23 Wound Center Nurse 1 #1 R Alvarez -Current Size (cm) - Length 1 -Current Size (cm) - Width 2 -Current Size (cm) - Depth 0.1 -Total Square Cm 2 -Photo Taken Yes -Exudate Amt Medium -Exudate Type Serosanguineous -Wound Margin Distinct, Outline Attached -Granulation Amt Medium (34-66%) -Granulation Quality [place] -Necrosis Amt Medium (34-66%) -Necrotic Tissue Type Adherent Slough -Structure Exposed N/A -Texture (Lissy-wound Skin Appearance) Localized Edema ,Scarring -Moisture (Lissy-wound Skin Appearance) No Abnormality -Color (Lissy-wound Skin Appearance) No Abnormality -Temperature (Lissy-wound Skin No Abnormality Appearance) (Pt Warm) -Tenderness on Palpation (Lissy-wound No Skin Appearance) -Ulcer Cleansing Soap and Water -Foul Odor after Cleansing No -Anesthetic Used 4% Lidocaine Solution Right Calf (cm) 37.4 Right Ankle (cm) 21.2 Left Calf (cm) 36.4 Left Ankle (cm) 20.5 WC - Nurse 2 - General Ulcer CM Notes Start: 01/19/25 08:20 Freq: Status: Active Protocol: Activity Type Activity Date Activity User E-sign Co-sign Detail Recorded Client Recorded Date Recorded By Document 01/19/25 08:52 BMF [id number] 01/19/25 09:00 BMF 01/19/25 08:52 Wound Center Nurse 2 #1 R Alvarez -Time 08:52 -Correct Patient Yes -Correct Side, Site, Position Yes -Correct Procedure Yes -Procedure Performed Yes -Type of Procedure Debridement -Clinical Debridement Subcutaneous -Tissue Removed Subcutaneous -Post Debridement (cm) - Length 1.8 -Post Debridement (cm) - Width 1 -Post Debridement (cm) - Depth 0.1 -Total Square (Post) (cm) 1.8 -Area of Debridement (cm) - Length 1.8 -Area of Debridement (cm) - Width 1 -Total Square (Area) (cm) 1.8 -Tunneling No -Undermining/Tunneling No -Circular Undermining No -Wound/Ulcer Outcome Not Healed -Ulcer Cleansing Rinsed/ Irrigated with Saline -Foul Odor after Cleansing No -Bioengineered Tissue No -Bleeding Controlled with Pressure -Treatment Response Procedure Tolerated Well -Debridement - Subq, 1st 20sq cm Yes Pain Scale: 0-10 Numeric Is Patient Pain Free? Yes - Nurse 3 - General Ulcer D/C NN Start: 01/19/25 08:20 Freq: Status: Active Protocol: Activity Type Activity Date Activity User E-sign Co-sign Detail Recorded Client Recorded Date Recorded By Document 01/19/25 09:08 DL [id number] 01/19/25 09:10 DL 01/19/25 09:08 Wound Care Center Nurse 3 #1 R Alvarez -Ulcer Cleansing Rinsed/ Irrigated with Saline -Foul Odor after Cleansing No -Primary Dressing Applied Aquacel Extra, NonAdherent Contact Layer, Silicone Border Foam 4x4 -Aquacel Extra 1 -Silicone Border Foam 4x4 1 Treatment Response Procedure Tolerated Well Pain Scale: 0-10 Numeric Is Patient Pain Free? Yes WC - Visit Discharge Discharge Condition Stable Ambulatory Status Ambulatory Transportation Private Auto Notes: Dressing applied per Quinten Phelps Assessment/Plan Assessment/Plan (1) Non-pressure ulcer of right lower extremity with fat layer exposed: CODE(S): L97.912 - Non-pressure chronic ulcer of unspecified part of right lower leg with fat layer exposed PLAN: Wash right leg with antibacterial soap and water pat dry apply Aquacel extra to wound base moistened with Adaptic and absorbent [place] SAP dressing every day. Wear a double layer Tubigrip to the right leg and follow-up in 1 week (2) Edema of right lower leg: CODE(S): R60.0 - Localized edema (3) Chronic ulcer of right leg: CODE(S): L97.919 - Non-pressure chronic ulcer of unspecified part of right lower leg with unspecified severity QUALIFIERS: Non-pressure ulcer stage: with fat layer exposed Qualified Code(s): L97.912 - Non-pressure chronic ulcer of unspecified part of right lower leg with fat layer exposed (4) Cellulitis of right lower extremity: CODE(S): L03.115 - Cellulitis of right lower limb
== END 2025-01-23 23:59 | disposition home or self-care (01) ==
LOC: WC 08:02
PROVIDERS: PCP Family Medicine; Referring Provider Physician Assistant; Visit Provider Nurse Practitioner
DX: L97.812 Non-pressure chronic ulcer of other part of right lower leg with fat layer exposed (principal); S81.811S Laceration without foreign body, right lower leg, sequela; W19.XXXS Unspecified fall, sequela; R60.0 Localized edema; L03.115 Cellulitis of right lower limb
CPT/HCPCS: 11042; 87070; 87075; 87205; 99213; G0463

== ENCOUNTER → 2025-01-19 | Outpatient (CLI) | payer MEDICARE, OTHER, SELFPAY ==
--- NOTE | 2025-01-19 15:34 | RAD_ITS ---
PROCEDURE: RIBS UNIL 2V NO CXR 01/19/2025 REASON FOR EXAM: RIB INJURY TECHNIQUE: RIBS UNIL 2V NO CXR COMPARISON: 08/06/2024 FINDINGS: No acute fracture or dislocation appreciated. Mild degenerative changes of the spine. Imaged lung otero are clear. No pneumothorax or sizable pleural effusion. Surgical clips/chain suture material in the medial left lung/hilar region. Mildly enlarged cardiac silhouette with a moderate-large hiatal hernia. RAD/Ribs Unil 2V No CXR IMPRESSION: No evidence of acute fracture. Moderate-large hiatal hernia. Reading Location: [id number]
== END | disposition home or self-care (01) ==
LOC: MTRAD 15:34
PROVIDERS: PCP Family Medicine; Referring Provider Physician Assistant; Visit Provider Physician Assistant
DX: S29.9XXA Unspecified injury of thorax, initial encounter (principal); X58.XXXA Exposure to other specified factors, initial encounter
CPT/HCPCS: 71100

== ENCOUNTER 2025-01-22 08:41 | Emergency (ER) | payer MEDICARE, OTHER, SELFPAY ==
[2025-01-22 08:42] VITALS: BP 153/98; PULSE 64; RESP 16; TEMP 37; O2SAT 99; BMI 28.9
--- NOTE | 2025-01-22 08:51 | ED.RN ---
pt fell off her step stool 2 days ago. went to u/c where xray results told her she did not have a fx to ribs. pt has large bruising to the left breast. pt states it has apinful to sit and stand and deep breathe.
--- NOTE | 2025-01-22 09:08 | EX.ED.GENINJ ---
HPI History of Present Illness Chief Complaint: Chest Other Informant: patient Onset/Context/Timing Onset: Days Mechanism/Context: Blunt Injury and Fall Current Severity: Moderate Maximum Severity: Moderate Narrative Narrative: 74-year-old female history of prior lung cancer lobectomy 15+ years ago. She was on a stepstool on change a light bulb slipped fell hit her left rib cage and breast on the stepstool. 1 to now clinic and x-ray done reportedly was negative. Since she still having pain she has bruising along her left breast and rib cage. She is on no blood thinners. Did not hit her head. No LOC. No other significant complaints. Prior similar symptoms: Yes Recent Illness/Hospitalization: No PFSH [facility] Medical History Chest wall contusion Abnormal bruising Impacted cerumen, left ear Dysuria HLD (hyperlipidemia) Bruises easily History of shingles Vitamin D deficiency Sciatica Lumbar radiculopathy GERD (gastroesophageal reflux disease) Lung cancer Anxiety Home Medications ?Medication ?Instructions ?Recorded ?Last Taken ?Type atorvastatin 10 mg tablet 10 mg PO QHS cholesterol 06/13/20 Unknown History diclofenac sodium 1 % topical gel 4 g topical .QID PRN Pain Or Fever 07/27/21 Unknown Rx #100 grams albuterol sulfate 90 mcg/actuation 1 - 2 puff inhalation Q6H PRN 03/10/22 Unknown Rx aerosol inhaler (ProAir HFA) shortness of breath or wheezing #8.5 grams ergocalciferol (vitamin D2) 1,250 50,000 unit PO QWEEK supplement 01/13/23 Unknown Rx mcg (50,000 unit) capsule #20 caps magnesium oxide 400 mg PO DAILY #90 caps 03/18/23 Unknown Rx esomeprazole magnesium 40 mg 40 mg PO QDAY gerd #90 caps 09/06/24 Unknown Rx capsule,delayed release ipratropium bromide 21 mcg (0.03 2 spray intranasal BID-TID PRN 11/04/24 Unknown Rx %) nasal spray postnasal drainage #30 mL acetaminophen 500 mg tablet 1,000 mg PO Q8 PRN fever or pain 11/08/24 Unknown History ciprofloxacin HCl 500 mg tablet 500 mg PO BID #14 tabs 01/14/25 Unknown Rx meloxicam 15 mg tablet 15 mg PO DAILY 01/19/25 Unknown History oxycodone 5 mg capsule 5 mg PO Q6H 01/19/25 Unknown History tramadol 50 mg tablet 50 mg PO Q6H PRN pain 01/19/25 Unknown History Allergy/AdvReac Type Severity Reaction Status Date / Time cephalexin Allergy Intermediate Rash Verified 01/22/25 08:52 nitrofurantoin Allergy Intermediate Rash Verified 01/22/25 08:52 Sulfa (Sulfonamide Allergy Intermediate sores in Verified 01/22/25 08:52 Antibiotics) mouth amoxicillin (From Amoxil) AdvReac Intermediate yeast & Verified 01/22/25 08:52 bladder infections Family History Aunt Colon cancer Diabetes Mother Thyroid disorder Heart disease Son Hypercholesteremia Grandmother Heart disease Father COPD (chronic obstructive pulmonary disease) Surgical History History of total left knee replacement History of bilateral cataract extraction History of lateral meniscus repair of left knee History of cystoscopy history of bunionectomy History of colonoscopy History of lobectomy of lung History of back surgery History of esophagogastroduodenoscopy (EGD) History of section Social History Smoking Status: Former smoker quit date: 05/26/08 Tobacco: How many years used: 40 alcohol intake: current alcohol intake frequency: holidays/special occasions only substance use type: does not use ROS ROS ED ROS Narrative Denies recent illness. Constitutional Constitutional ED: Denies chills or fever(s) Eyes Eyes: Denies blurry vision ENT ENT ED: Denies ear pain Cardiovascular Cardiovascular: Reports chest pain and other Details: Left rib cage and chest wall pain post fall. Respiratory/Chest Respiratory/Chest: Denies cough or dyspnea Gastrointestinal Gastrointestinal: Denies abdominal pain Genitourinary Genitourinary ED: Denies dysuria or hematuria Musculoskeletal Musculoskeletal: Denies arthralgias or back pain Integumentary Denies abscess Neurologic Neurologic: Denies headache(s) Psychiatric Psychiatric: Denies anxiety Endocrine Endocrinology: Denies cold intolerance Hematologic/Lymphatic Hematologic/Lymphatic: Denies easy bleeding, easy bruising or lymphadenopathy Allergic/Immunologic Allergic/Immunologic ED: Denies mouth swelling, tongue swelling or urticaria EXAM Physical Exam Narrative Exam Narrative: Well-appearing 74-year-old female sitting in the chair with her walking in the room. Vital signs stable afebrile. Pulse ox 99% on room air no signs hypoxia. H EENT exam pupils round reactive light. No trauma to her face or scalp. Nontender. No bruising. C-spine and neck nontender. Back and spine nontender. No bruising. Lungs clear to auscultation bilaterally. It hurts to take a deep breath along her left rib cage. Heart regular rhythm rate about 65 no murmur. Chest wall she has bruising on her left breast C-spine and neck nontender. Back and spine nontender. No bruising. Lungs clear to auscultation bilaterally. It hurts to take a deep breath along her left rib cage. Heart regular rhythm rate about 65 no murmur. Chest wall she has bruising on her left breast and along the left rib cage. Tender to palpation. No crepitance. No bony deformity. But she does have rib pain tenderness. No subcu air. Right chest wall right rib cage nontender. Abdomen soft nontender. No bruising. Pelvic girdle intact. Moving all 4 extremities. No deformity. Normal range of motion. She has several bruises on her left leg. No bony deformity. Neurologically she is awake alert. Answering questions following commands. No focal motor deficits. Const Vital Signs: 01/22/25 08:42 01/22/25 08:49 Temperature 98.6 F Temperature Source Oral Pulse Rate 64 Respiratory Rate 16 Respiratory Effort Normal Blood Pressure 153/98 H Blood Pressure Mean 116 Pulse Ox 99 Oxygen Delivery Method Room Air Positive well nourished and well developed; Negative for cachectic, contractures or unkempt General Appearance ED: well developed and NAD; Negative for unkempt, cachectic or contractures Nutritional Appearance: Negative for cachectic HEENT atraumatic; Negative for trauma or tenderness Eyes PERRL and EOMs intact bilaterally Neck full ROM Chest Wall Negative for inspection of chest normal or palpation of chest normal Chest Narrative: Left breast and chest wall bruising. Tenderness. No crepitus. No subcu air. She does have bony tenderness either rib contusion or fracture. Resp normal respiratory effort and clear to auscultation bilaterally Cardio regular rhythm, S1 normal heart sound, S2 normal heart sound and no murmurs GI normal to inspection, nondistended, normoactive bowel sounds, non-tender, non-distended and no masses Auscultation: normoactive bowel sounds Palpation: soft; Negative for tender or guarding Back/Spine normal to inspection and no thoracic nor lumbar tenderness Extremity normal to inspection and full ROM Extremity Narrative: No bony tenderness to her extremities. Normal range of motion. Neuro oriented x3, CN's II-XII intact bilaterally, moves all extremities and no focal motor deficits Manny Coma Scale: document GCS findings Spontaneous Obeys Commands Oriented 15 Sensorium / Orientation: alert, oriented to person, oriented to place and oriented to time Motor Exam: strength 5/5 throughout Psych mental status grossly normal and thought process normal Appearance: Negative for unkempt Skin no rashes or lesions noted, no wounds, skin turgor normal and no jaundice MDM MDM MDM Narrative Medical decision making narrative: 74-year-old female fell there today while on a step stool injuring her left rib cage and left breast. She has bruising. Camilo an x-ray done to now clinic that was negative. CAT scan of her chest to be done looking for rib fractures and/or pneumothorax. Clinically I do not think she has a pneumothorax. She was offered but did not want anything for pain. Repeat exam patient is doing well at 10:50 PM. We went over her CAT scan results. There is no obvious rib fractures. No pneumothorax. She will be treated as chest wall contusion. Ice. She only wants to use Tylenol for pain. She will be discharged home. She is comfortable with the plan. History & Record Review Discussion w/independent historian: Patient Additional record(s) reviewed:: Prior inpatient record, Prior outpatient record, Prior ED visit and Prior labs Radiography Diagnostic Testing: Clinical Impression(s) from Imaging Studies Chest CT 01/22/25 09:25 IMPRESSION: 1. Multiple reactive mediastinal lymph nodes. Those visualized on the prior limited CT of the chest are unchanged. 2. 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 This was partially seen on the prior limited chest CT. 3. Status post left partial pneumonectomy. 4. Calcific vascular disease. 5. Large hiatal hernia. Reading Location: [id number] Discharge Plan Triage Chief Complaint: Chest Other ED Provider: Daniel Ford Dx/Rx/DC Orders Clinical Impression: Fall, Chest wall contusion Instructions: ED Chest Wall Contusion, ED Bruise, Rib Prescriptions: No Action atorvastatin 10 mg tablet 10 mg PO QHS albuterol sulfate [ProAir HFA] 90 mcg/actuation HFA aerosol inhaler 1 - 2 puff inhalation Q6H PRN (Reason: shortness of breath or wheezing) Qty: 8.5 3RF magnesium oxide 400 mg magnesium capsule 400 mg PO DAILY Qty: 90 1RF acetaminophen 500 mg tablet 1,000 mg PO Q8 PRN (Reason: fever or pain) ipratropium bromide 21 mcg (0.03 %) spray,non-aerosol 2 spray intranasal BID-TID PRN (Reason: postnasal drainage) Qty: 30 0RF Rx Instructions: administer into each nostril ciprofloxacin HCl 500 mg tablet 500 mg PO BID Qty: 14 0RF meloxicam 15 mg tablet 15 mg PO DAILY oxycodone 5 mg capsule 5 mg PO Q6H tramadol 50 mg tablet 50 mg PO Q6H PRN (Reason: pain) diclofenac sodium 1 % gel 4 g TOPICAL .QID PRN (Reason: Pain Or Fever) Qty: 100 2RF ergocalciferol (vitamin D2) 1,250 mcg (50,000 unit) capsule 50,000 unit PO QWEEK Qty: 20 1RF esomeprazole magnesium 40 mg capsule,delayed release(DR/EC) 40 mg PO QDAY Qty: 90 1RF Primary Care Provider: Bean Knapp Referrals: Bean Knapp, DO [Primary Care Provider] - As Needed Activity Restrictions/Additional Instructions: No broken ribs seen on your CAT scan. Ice to your chest wall. Use a pillow to brace your ribs and your chest wall. Tylenol for pain. Follow-up with your doctor as needed. Print Language: Latvian Disposition Disposition: Home, Self Care
--- OUTSIDE RECORDS SUMMARY | 2025-01-22 09:11 | XMS RPT_ITS | CCD ---
Author Organization [facility] Care Team Providers Care Distribution Field Engineer Name Role Phone BEAN BETTENCOURT DO Primary Care Physician Bean Bettencourt DO Primary Care Provider JEY Puga Attending Provider Dr. Bean Bettencourt Primary Care Provider [phone] Dr. Bean Bettencourt Referring Provider [phone] JEY Patel Attending Provider Dr. Bean Bettencourt Primary Care Provider [phone] Dr. Bean Bettencourt Referring Provider Tia DAILEY NP-Dariela Crowley Attending Provider [phone] Dr. Dusty Car Attending Provider [phone] Bean Bettencourt DO Primary Care Provider JAMES GRAY I Attending Unavailable SELF, SELF Referring Unavailable BEAN BETTENCOURT Primary Care Unavailable BEAN BETTENCOURT DO Primary Care Physician Dr. Bean Bettencourt Primary Care Provider [phone] Dr. Bean Bettencourt Referring Provider TY Weber NP Attending Provider [phone] JEY Puga Attending Provider Dr. Dusty Car Attending Provider JEY Patel Attending Provider Dr. Bean Bettencourt Primary Care Provider [phone] Dr. Bean Bettencourt Referring Provider Tia DIRECTOR OF ALUMNI RELATIONS, DIRECTOR OF ALUMNI RELATIONS-C Jovany Attending Provider Dr. Arias Alexander Attending Provider [phone] Dr. Bean Bettencourt Primary Care Provider [phone] Dr. Bean Bettencourt Referring Provider [phone] JEY Puga Attending Provider Dr. Dusty Car Attending Provider JEY Patel Attending Provider Tia DIRECTOR OF ALUMNI RELATIONS, DIRECTOR OF ALUMNI RELATIONS-C Jovany Attending Provider [phone] Dr. Arias Alexander Attending Provider [phone] Dr. Eleazar Pyle Attending Provider Dr. Marcus Champion Referring Provider Fish DIRECTOR OF ALUMNI RELATIONS, DIRECTOR OF ALUMNI RELATIONS-C Shashi Referring Provider Fish DIRECTOR OF ALUMNI RELATIONS, DIRECTOR OF ALUMNI RELATIONS-C Shashi Other Provider Dr. Bean Bettencourt Primary Care Provider Dr. Bean Bettencourt Referring Provider JEY Patel Attending Provider Dr. Bean Bettencourt Primary Care Provider [phone] Dr. Bean Bettencourt Referring Provider Dr. Arias Alexander Attending Provider [phone] Dr. Bean Bettencourt Primary Care Provider [phone] Dr. Bean Bettencourt Referring Provider JEY Patel Attending Provider JEY Puga Attending Provider Dr. Bean Bettencourt Primary Care Provider [phone] Dr. Dusty Car Attending Provider Dr. Bean Bettencourt Attending Provider [phone] Dr. Bean Bettencourt Referring Provider [phone] JEY Puga Attending Provider JEY Patel Attending Provider Dr. Bean Bettencourt Primary Care Provider [phone] Dr. Bean Bettencourt Referring Provider JEY Puga Attending Provider JEY Patel Attending Provider JEY Thomason Attending Provider JEY Hernandez Attending Provider Dr. Bean Bettencourt Primary Care Provider [phone] Dr. Bean Bettencourt Referring Provider [phone] JEY Puga Attending Provider Dr. Joe Tolentino Attending Provider Dr. Bean Bettencourt DO Primary Care Provider Dr. Bean Bettencourt DO Referring Provider [phone] Mark Patel Attending Provider Mark Patel Referring Provider Dr. Bean Bettencourt DO Attending Provider [phone] Dr. Dusty Car MD Attending Provider [phone] Dr. Dusty Car MD Referring Provider [phone] Italo Thomason Attending Provider Rohan Puga Attending Provider Dr. Fred Langley DO Emergency Provider Dr. Bean Bettencourt DO Primary Care Provider [phone] Dr. Bean Bettencourt DO Attending Provider [phone] Dr. Bean Bettencourt DO Referring Provider [phone] Dr. Dusty Car MD Attending Provider [phone] Mark Patel Attending Provider [phone] Fred Langley DO Attending Provider Dmitriy DICK, Dr. Rogers Attending Provider Carlyle DAILEY-CCarolyn Attending Provider Holden VELAZQUEZ, Dr. Laguna Attending Provider Holden VELAZQUEZ, Dr. Laguna Referring Provider Dr. Bean Bettencourt DO Primary Care Provider [phone] Dr. Bean Bettencourt DO Referring Provider [phone] Josep VELAZQUEZ, Dr. Montano Attending Provider Dr. Bean Bettencourt DO Attending Provider [phone] Dr. Bean Bettencourt DO Primary Care Provider Dr. Bean Bettencourt DO Referring Provider [phone] Mark Patel Attending Provider [phone] Bean Bettencourt DO Primary Care Provider [phone] Dr. Bean Bettencourt DO Referring Provider [phone] Italo Thomason Attending Provider Mark Patel Attending Provider [phone] Mark Patel Referring Provider Dr. Bean Bettencourt DO Primary Care Provider Dr. Bean Bettencourt DO Referring Provider [phone] Rohan Puga Attending Provider [phone] Laurel DIRECTOR OF ALUMNI RELATIONS-CIsauro Attending Provider Laurel DIRECTOR OF ALUMNI RELATIONS-CIsauro Referring Provider Joan VELAZQUEZ, Dr. Parker Attending Provider Dr. Elena Franco MD Attending Provider [phone] Dr. Bean Bettencourt DO Primary Care Provider Deandre DIRECTOR OF ALUMNI RELATIONS-CAlthea Attending Provider [phone] Dr. Bean Bettencourt DO Primary Care Provider Brown DO, Dr. Bean R Referring Provider Dr. Ken Izaguirre DO Attending Provider Joan VELAZQUEZ, Dr. Parker Attending Provider [phone] Dr. Bean Bettencourt DO Attending Provider Jaime DIRECTOR OF ALUMNI RELATIONS-CHayde Attending Provider Paloma Zarco Referring Provider [phone] Jaime DIRECTOR OF ALUMNI RELATIONS-C, Hayde Other Provider [phone] Paloma Zarco Referring Provider Mark Patel Attending Unavailable Brown, Bean R Primary Care Unavailable Brown, Bean R Referring Unavailable Brown, Bean R Primary Care Unavailable Brown, Bean R Attending Unavailable Brown, Bean R Referring Unavailable Brown, Bean R Attending Unavailable Brown, Bean R Primary Care Unavailable Brown, Bean R Referring Unavailable Carolyn Tadeo Attending Unavailable Brown, Bean R Primary Care Unavailable Brown, Bean R Referring Unavailable Elise Samson Referring Unavailable Brown, Bean R Primary Care Unavailable Elise Samson Attending Unavailable Mark Patel Referring Unavailable Mark Patel Attending Unavailable Brown, Bean R Primary Care Unavailable Brown, Bean R Primary Care Unavailable Brown, Bean R Attending Unavailable Brown, Bean R Primary Care Unavailable Brown, Bean R Referring Unavailable Brown, Bean R Attending Unavailable Mark Patel Referring Unavailable Mark Patel Attending Unavailable Rohan Puga Attending Unavailable Brown, Bean R Primary Care Unavailable Brown, Bean R Referring Unavailable Luz Elena Hatch Attending Unavailable Brown, Bean R Primary Care Unavailable Brown, Bean R Referring Unavailable Brown, Bean R Primary Care Unavailable Carolyn Tadeo Attending Unavailable Brown, Bean R Referring Unavailable Brown, Bean R Primary Care Unavailable Althea Carrera Attending Unavailable Brown, Bean R Referring Unavailable Brown, Bean R Primary Care Unavailable Italo Thomason Attending Unavailable Brown, Bean R Referring Unavailable Ken Izaguirre Attending Unavailable Brown, Bean R Primary Care Unavailable Brown, Bean R Referring Unavailable Brown, Bean R Primary Care Unavailable Mark Patel Attending Unavailable Brown, Bean R Referring Unavailable Brown, Bean R Primary Care Unavailable Jaime DAILEY, Hayde Attending Unavailable Paloma Zarco Referring Unavailable Mark Patel Referring Unavailable Mark Patel Attending Unavailable Brown, Bean R Primary Care Unavailable Brown, Bean R Primary Care Unavailable Fred Langley Attending Unavailable Laurel DIRECTOR OF ALUMNI RELATIONS, Isauro Bowman Attending Unavailable Brown, Bean R Primary Care Unavailable Brown, Bean R Referring Unavailable Brown, Bean R Primary Care Unavailable Dusty Car Attending Unavailable Dusty Car Referring Unavailable Mark Patel Attending Unavailable Brown, Bean R Primary Care Unavailable Brown, Bean R Referring Unavailable Ken Izaguirre Attending Unavailable Brown, Bean R Primary Care Unavailable Brown, Bean R Referring Unavailable Mark Patel Attending Unavailable Brown, Bean R Primary Care Unavailable Brown, Bean R Referring Unavailable Luz Elena Hatch Referring Unavailable Luz Elena Hatch Attending Unavailable Brown, Bean R Primary Care Unavailable Italo Thomason Attending Unavailable Brown, Bean R Primary Care Unavailable Brown, Bean R Referring Unavailable Mark Patel Attending Unavailable Brown, Bean R Primary Care Unavailable Brown, Bean R Referring Unavailable Makr Patel Attending Unavailable Brown, Bean R Primary Care Unavailable Brown, Bean R Referring Unavailable Brown, Bean R Primary Care Unavailable Dusty Car Attending Unavailable Brown, Bean R Primary Care Unavailable Rohan Puga Attending Unavailable Brown, Bean R Referring Unavailable Rohan Puga Attending Unavailable Brown, Bean R Primary Care Unavailable Brown, Bean R Referring Unavailable Brown, Bean R Attending Unavailable Dusty Car Attending Unavailable Elise Samson Attending Unavailable Brown, Bean R Primary Care Unavailable Brown, Bean R Referring Unavailable Ken Izaguirre Attending Unavailable Brown, Bean R Primary Care Unavailable Brown, Bean R Referring Unavailable Brown, Bean R Primary Care Unavailable Luz Elena Hatch Attending Unavailable Brown, Bean R Referring Unavailable Mark Patel Attending Unavailable Brown, Bean R Primary Care Unavailable Brown, Bean R Referring Unavailable Laurel DIRECTOR OF ALUMNI RELATIONSIsauro Referring Unavailable Brown, Bean R Primary Care Unavailable Laurel DIRECTOR OF ALUMNI RELATIONSIsauro Attending Unavailable Allergies Allergy Classification Reported Allergen(s) Allergy Type Date of Onset Reaction(s) Facility (2 sources) Sulfonamides (Antibiotic); Translations: [sulfa drugs] Drug allergy [facility] (2 sources) Sulfonamides (Antibiotic) Drug Allergy 1 Other: See Comments [facility] Work Phone: (20 sources) Amoxicillin Drug Allergy 1 yeast & bladder infections [facility] (20 sources) Sulfonamides (Antibiotic) Allergy to substance 2 sores in mouth [facility] (1 source) Sulfonamides (Antibiotic) Propensity to adverse reactions to drug 1 [facility] (20 sources) Nitrofurantoin; Translations: [nitrofurantoin] Drug Allergy 3 [facility] (20 sources) Cephalexin Drug Allergy 3 [facility] (1 source) Amoxicillin Drug Allergy 5 [facility] Repository (1 source) Cephalexin Drug Allergy 5 [facility] Rep[facility] (1 source) Sulfonamides (Antibiotic) Drug allergy (disorder) 5 [facility] Repository Medications Current Medications Medication Drug Class(es) Dates Sig (Normalized) Sig (Original) acetaminophen 500 mg oral tablet (20 sources) Start: 08-10-2019 End: 11-08-2024 take 2 tablets by mouth every eight hours as needed for pain Acetaminophen 500 mg tablet Active 1000 mg PO EVERY 8 HOURS as needed for fever or pain November 08, 2024 3:17pm Start: 08-10-2019 take 1000 mg by mout h every eight hours Acetaminophen Active 1000 MG PO EVERY 8 HOURS 90 August 10, 2019 12:00am Start: 10-03-2017 End: 11-28-2017 take 1 tablet by mouth twice daily as needed for pain Acetaminophen (Tylenol Extra Strength) 500 mg tablet Discontinued 500 mg PO TWICE A DAY as needed for pain 180 3 October 03, 2017 12:00am November 28, 2017 2:45pm [id number] 200 actuat albuterol 0.09 mg/actuat metered dose inhaler (20 sources) beta2-Adrenergic Agonist Start: 01-04-2022 End: 03-10-2022 Albuterol Sulfate (Proair Hfa) 90 mcg/actuation HFA aerosol inhaler Active 1 - 2 NMA INHALATION EVERY 6 HOURS as needed for shortness of breath or wheezing 8.5 3 March 10, 2022 9:20am Start: 01-04-2022 End: 03-10-2022 take 1 puff(s) by inhalation every six hours Albuterol Sulfate (Proair Hfa) 90 mcg/actuation HFA aerosol inhaler Active 1 - 2 PUFF INHALATION EVERY 6 HOURS 8.5 March 10, 2022 9:20am atorvastatin 10 mg oral tablet (20 sources) HMG-CoA Reductase Inhibitor Start: 06-13-2020 take 1 tablet by mouth at bedtime Atorvastatin 10 mg tablet Active 10 mg PO AT BEDTIME June 13, 2020 1:00am cholesterol Comment on above: Take 10 mg by mouth. ciprofloxacin 500 mg oral tablet (20 sources) Quinolone Antimicrobial Start: 01-14-2025 End: 01-14-2025 take 1 tablet by mouth twice daily Ciprofloxacin Hcl 500 mg tablet Active 500 mg PO TWICE A DAY 14 January 14, 2025 12:00am Start: 04-28-2024 End: 06-16-2024 take 1 tablet by mouth twice daily Ciprofloxacin Hcl 500 mg tablet Discontinued 500 mg PO TWICE A DAY 10 0 April 28, 2024 1:00am June 16, 2024 1:57pm Start: 01-29-2024 End: 02-03-2024 take 1 tablet by mouth twice daily Ciprofloxacin Hcl (Cipro) 500 mg tablet Discontinued 500 mg PO TWICE A DAY 10 5 0 January 29, 2024 12:00am February 02, 2024 12:00am February 03, 2024 12:04am Start: 08-02-2023 End: 03-23-2024 take 1 tablet by mouth once daily Ciprofloxacin Hcl (Cipro) 500 mg tablet Discontinued 500 mg PO DAILY 3 0 August 02, 2023 1:00am March 23, 2024 8:34am Start: 12-19-2022 End: 01-02-2023 take 1 tablet by mouth twice daily Ciprofloxacin Hcl (Cipro) 500 mg tablet Discontinued 500 mg PO TWICE A DAY 28 14 December 19, 2022 12:00am January 01, 2023 12:00am January 02, 2023 12:03am Start: 01-22-2021 End: 01-29-2021 take 1 tablet by mouth twice daily Ciprofloxacin Hcl (Cipro) 500 mg tablet Discontinued 500 mg PO TWICE A DAY 14 7 0 January 22, 2021 12:00am January 28, 2021 12:00am January 29, 2021 12:01am Start: 11-22-2020 End: 12-14-2020 take 1 tablet by mouth twice daily Ciprofloxacin Hcl (Cipro) 500 mg tablet Discontinued 500 mg PO TWICE A DAY 20 0 November 22, 2020 12:00am December 14, 2020 10:34am Start: 02-04-2020 End: 03-01-2020 take 1 tablet by mouth every twelve hours Ciprofloxacin Hcl (Cipro) 500 mg tablet Discontinued 500 mg PO Q12H 14 0 February 04, 2020 8:59am March 01, 2020 10:45am Start: 12-12-2019 End: 12-16-2019 take 1 tablet by mouth every twelve hours Ciprofloxacin Hcl (Cipro) 500 mg tablet Discontinued 500 mg PO Q12H 10 5 0 December 12, 2019 12:00am December 16, 2019 12:00am December 16, 2019 1:08pm Start: 11-01-2019 End: 12-03-2019 take 1 tablet by mouth every twelve hours Ciprofloxacin Hcl (Cipro) 500 mg tablet Discontinued 500 mg PO Q12H 14 0 November 01, 2019 12:00am December 03, 2019 10:55am Start: 08-13-2019 End: 09-16-2019 take 1 tablet by mouth twice daily Ciprofloxacin Hcl 500 mg tablet Discontinued 500 mg PO TWICE A DAY 10 0 August 13, 2019 12:00am September 16, 2019 9:44am diclofenac sodium 0.01 mg/mg topical gel (20 sources) Nonsteroidal Anti-inflammatory Drug Start: 07-27-2021 apply 4 g topically four times daily Diclofenac Sodium Active 4 GM TOPICAL .QID 100 July 27, 2021 12:33pm Start: 02-19-2019 End: 07-27-2021 apply 4 g topically four times daily as needed for pain Diclofenac Sodium (Voltaren) 1 % gel Discontinued 4 g TOPICAL .QID as needed for Pain Or Fever 100 2 June 15, 2020 1:46pm July 27, 2021 12:33pm Ipratropium [place] 21 mcg ( 0.03 %) spray,non-aerosol (13 sources) Start: 11-04-2024 Ipratropium Br omide 21 mcg (0.03 %) spray,non-aerosol Active 2 NMA INTRANASAL 2 to 3 times per day as needed for postnasal drainage 30 November 04, 2024 12:00am administer into each nostril Start: 11-04-2024 Ipratropium Br omide 21 mcg (0.03 %) spray,non-aerosol Active 2 NMA INTRANASAL 2 to 3 times per day as needed for postnasal drainage November 04, 2024 12:00am administer into each nostril magnesium oxide 400 mg oral capsule (20 sources) Start: 03-18-2023 take 1 capsule by mouth once daily Magnesium Oxide 400 mg magnesium capsule Active 400 mg PO DAILY March 18, 2023 12:00am meloxicam 15 mg oral tablet (2 sources) Nonsteroidal Anti-inflammatory Drug Start: 01-19-2025 take 1 tablet by mouth once daily Meloxicam 15 mg tablet Active 15 mg PO DAILY January 19, 2025 12:00am NexIUM 40 mg oral delayed release capsule (1 source) Start: 07-23-2019 NexIUM 40 mg oral delayed release capsule Dose : 40 mg = 1 cap(s), Oral, Daily, # 30 cap(s), 0 Refill(s) Start Date: 07/23/19 Status: Ordered oxyCODONE hydrochloride 5 mg oral capsule (2 sources) Opioid Agonist Start: 01-19-2025 take 1 capsule by mouth every six hours Oxycodone 5 mg capsule Active 5 mg PO EVERY 6 HOURS 0 January 19, 2025 12:00am traMADol hydrochloride 50 mg oral tablet (20 sources) Opioid Agonist Start: 01-19-2025 take 1 tablet by mouth every six hours as needed for pain Tramadol 50 mg tablet Active 50 mg PO EVERY 6 HOURS as needed for pain January 19, 2025 12:00am Start: 04-27-2022 End: 08-02-2022 take 1 tablet by mouth twice daily as needed for pain Tramadol 50 mg tablet Discontinued 50 mg PO TWICE A DAY as needed for pain 7 April 27, 2022 1:00am August 02, 2022 1:24am Start: 09-09-2019 End: 06-07-2020 take 1 tablet by mouth every six hours as needed for pain Tramadol 50 mg tablet Discontinued 50 mg PO EVERY 6 HOURS as needed for pain 30 June 07, 2020 4:06pm June 07, 2020 4:08pm Start: 04-07-2018 End: 04-21-2018 take 1 tablet by mouth every twelve hours as needed for pain Tramadol 50 mg tablet Discontinued 50 mg PO Q12H as needed for pain 14 0 April 07, 2018 1:00am April 21, 2018 5:10pm take 1 tablet by tracey th once daily as needed TRAMADOL HCL PO take 1 Tab by mouth daily as needed. Unsure of dose 0 Active Vitamin D with Minerals oral tablet (2 sources) Start: 02-01-2021 take 1 tablet by mouth once daily Vitamin D with Minerals oral tablet tab(s), Oral, qDay, 0 Refill(s) Start Date: 02/01/21 Status: Ordered Completed/Discontinued Medications Medication Drug Class(es) Dates Sig (Normalized) Sig (Original) acetaminophen 325 mg / HYDROcodone bitartrate 5 mg oral tablet (20 sources) Opioid Agonist Start: 09-18-2020 End: 09-21-2020 Hydrocodone-Acetami nophen 1 TABLET tablet Discontinued 1 {tbl} PO EVERY 6 HOURS NEEDED as needed for Pain 10 3 0 September 18, 2020 September 20, 2020 12:00am September 21, 2020 12:01am Calculus of kidney Calculus of kidney Start: 09-18-2020 End: 09-21-2020 take 1 tablet by mouth every six hours as needed Hydrocodone-Acetaminophen Discontinued 1 TABLET PO EVERY 6 HOURS NEEDED 10 3 September 18, 2020 September 21, 2020 12:01am acyclovir 800 mg oral tablet (20 sources) Herpesvirus Nucleoside Analog DNA Polymerase Inhibitor, Herpes Simplex Virus Nucleoside Analog DNA Polymerase Inhibitor, Herpes Zoster Virus Nucleoside Analog DNA Polymerase Inhibitor Start: 03-24-2018 End: 03-31-2018 take 5 tablets by mouth every twenty-four hours Acyclovir 800 mg tablet Discontinued 800 mg PO Q4H 42 7 0 March 24, 2018 12:00am March 30, 2018 1:00am March 31, 2018 1:08am while awake; give 5 doses in 24 hours albuterol 0.833 mg/ml / ipratropium bromide 0.167 mg/ml inhalation solution (13 sources) Anticholinergic, beta2-Adrenergic Agonist Start: 11-04-2024 End: 11-08-2024 take 1 mL by inhalation every six hours Ipratropium-Albut baldemar 0.5 mg-3 mg(2.5 mg base)/3 mL solution for nebulization Discontinued 3 mL INHALATION EVERY 6 HOURS 90 5 0 November 04, 2024 12:00am November 08, 2024 12:00am November 08, 2024 3:18pm aspirin 81 mg chewable tablet (20 sources) Platelet Aggregation Inhibitor, Nonsteroidal Anti-inflammatory Drug Start: 08-10-2019 End: 08-01-2022 take 1 tablet by mouth twice daily at mealtime Aspirin 81 MG tablet,chewable Discontinued 81 mg PO TWICE DAILY WITH MEALS 60 0 August 10, 2019 12:00am August 01, 2022 3:02pm Comment on above: 81 mg. azithromycin 250 mg oral tablet (20 sources) Macrolide Antimicrobial Start: 08-04-2024 End: 08-12-2024 Azithromycin 250 mg tablet Discontinued 0 PO .COMPLEX 6 0 August 04, 2024 12:00am August 12, 2024 1:43pm For 250 mg dose pack: take 500 mg today (day 1), then 250 mg for 4 days (days 2-5) PO Start: 04-29-2021 End: 03-10-2022 Azithromycin (Zithromax) 250 mg tablet Discontinued 0 PO .COMPLEX 6 0 April 29, 2021 1:00am March 10, 2022 9:20am For 250 mg dose pack: take 500 mg today (day 1), then 250 mg for 4 days (days 2-5) PO Start: 02-19-2019 End: 04-19-2019 Azithromycin (Zithromax Z-Pa k) 250 mg tablet Discontinued 0 PO .COMPLEX February 19, 2019 12:00am April 19, 2019 11:42am as directed benzonatate 200 mg oral capsule (20 sources) Non-narcotic Antitussive Start: 08-02-2024 End: 08-12-2024 take 1 capsule by mouth three times daily as needed for cough Benzonatate 200 mg capsule Discontinued 200 mg PO THREE TIMES A DAY as needed for cough 20 0 August 02, 2024 12:00am August 12, 2024 1:43pm Start: 05-21-2022 End: 08-01-2022 take 2 capsules by mouth three times daily as needed for cough Benzonatate 100 mg capsule Discontinued 200 mg PO THREE TIMES A DAY as needed for cough 30 0 May 21, 2022 1:00am August 01, 2022 3:02pm Start: 05-21-2022 End: 08-01-2022 take 200 mg by mouth three times daily Benzonatate Discontinued 200 MG PO THREE TIMES A DAY 30 May 21, 2022 1:00am August 01, 2022 3:02pm Start: 03-10-2022 End: 05-14-2022 take 1 capsule by mouth three times daily as needed for cough Benzonatate 100 mg capsule Discontinued 100 mg PO THREE TIMES A DAY as needed for cough 30 0 March 10, 2022 12:00am May 14, 2022 11:59am Start: 01-17-2021 End: 05-03-2021 take 1 capsule by mouth three times daily as needed for cough Benzonatate 200 mg capsule Discontinued 200 mg PO THREE TIMES A DAY as needed for cough 20 0 January 17, 2021 12:00am May 03, 2021 12:15pm Start: 09-14-2018 End: 05-07-2019 Benzonatate (Tessalon Perles ) 100 mg capsule Discontinued 200 mg PO 2 to 3 times per day as needed for cough 60 2 September 14, 2018 12:00am May 07, 2019 9:09am capsaicin 0.75 mg/ml topical cream (20 sources) Start: 04-14-2018 End: 04-21-2018 Capsaicin 0.075 % cream Discontinued 1 NMA TOPICAL THREE TIMES A DAY 57 3 April 14, 2018 1:00am April 21, 2018 4:56pm do not wash area for at least 30 min after application - no heat to area cephalexin 500 mg oral capsule (20 sources) Cephalosporin Antibacterial Start: 10-31-2022 End: 12-19-2022 take 1 capsule by mouth three times daily Cephalexin 500 mg capsule Discontinued 500 mg PO THREE TIMES A DAY 21 7 0 October 31, 2022 12:00am December 19, 2022 3:13pm Start: 08-21-2022 End: 12-19-2022 take 1 capsule by mouth every twelve hours Cephalexin 500 mg capsule Discontinued 500 mg PO Q12H 20 10 0 November 29, 2022 12:00am December 08, 2022 12:00am December 09, 2022 12:03am Start: 01-28-2018 End: 02-02-2018 take 1 capsule by mouth twice daily Cephalexin (Keflex) 500 mg capsule Discontinued 500 mg PO TWICE A DAY 10 5 0 January 28, 2018 12:00am February 01, 2018 12:00am February 02, 2018 12:08am codeine phosphate 2 mg/ml / guaiFENesin 20 mg/ml oral solution (20 sources) Opioid Agonist Start: 08-13-2024 End: 01-19-2025 take 5-10 mL by mouth every six hours as needed for cough Codeine-Guaifenesin 10-100 mg/5 mL liquid Discontinued 0 PO EVERY 6 HOURS as needed for cough 120 0 August 13, 2024 12:00am January 19, 2025 8:50am 5-10ml orally every 6 hours PRN; Start: 08-06-2024 End: 08-12-2024 take 5-10 mL by mouth every six hours as needed for cough Codeine-Guaifenesin 10-200 mg/5 mL liquid Discontinued 0 PO EVERY 6 HOURS as needed for cough 120 0 August 06, 2024 12:00am August 12, 2024 1:44pm 5-10ml orally every 6 hours PRN; Start: 04-19-2019 End: 05-07-2019 take 1 mL by mouth every six hours as needed for cough Codeine-Guaifenesin 10-100 mg/5 mL liquid Discontinued 5 mL PO EVERY 6 HOURS as needed for cough 120 0 April 19, 2019 1:00am May 07, 2019 9:09am Start: 04-19-2019 End: 05-07-2019 take 1 mL by mouth every six hours Codeine-Guaifenesin Discontinued 5 ML PO EVERY 6 HOURS 120 April 19, 2019 1:00am May 07, 2019 9:09am COMPOUNDED PRESCRIPTION (1 source) COMPOUNDED PRESC RIPTION Indications: 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 0 Active Comment on above: Patient has a tens u nit. doxycycline monohydrate 100 mg oral capsule (20 sources) Tetracycline-cla ss Drug Start: End: take 1 capsule by mouth twice daily Doxycycline Monohydrate 100 mg capsule Discontinued 100 mg PO TWICE A DAY August 22, 2024 12:00am August 27, 2024 7:40am Start: 09-05-2023 End: 09-15-2023 take 1 capsule by mouth twice daily Doxycycline Hyclate 100 mg capsule Discontinued 100 mg PO TWICE A DAY 20 10 0 September 05, 2023 12:00am September 14, 2023 12:00am September 15, 2023 12:05am Acute sinusitis, unspecified Start: 01-19-2020 End: 03-01-2020 take 1 capsule by mouth twice daily Doxycycline Monohydrate 100 mg capsule Discontinued 100 mg PO TWICE A DAY 10 0 January 19, 2020 12:00am March 01, 2020 10:45am ergocalciferol 1.25 mg oral capsule (20 sources) Provitamin D2 Compound Start: 07-23-2019 End: 01-13-2023 Ergocalciferol (Vitamin D2) 1,250 mcg (50,000 unit) capsule Discontinued [id number] U PO EVERY WEEK 20 2 January 23, 2022 1:50pm January 13, 2023 9:27pm supplement Start: 10-03-2017 End: 01-13-2023 Ergocalciferol (Vitamin D2) 50,000 unit capsule Discontinued [id number] U PO EVERY WEEK 14 3 December 01, 2018 8:26am July 23, 2019 3:08pm ergocalciferol 1 .25 MG (86917 UT) capsule Take 50,000 Units by mouth. 0 Active Comment on above: Take 50,000 Units by mouth. esomeprazole 40 mg delayed release oral capsule (20 sources) Proton Pump Inhibitor Start: 8 End: 5 take 1 capsule by mouth once daily Esomeprazole Magnesium 40 mg capsule,delayed release(DR/EC) Discontinued 40 mg PO daily 90 1 February 26, 2024 3:38pm September 06, 2024 3:55pm gerd Comment on above: Take 40 mg by mouth. famotidine 20 mg oral tablet (20 sources) Histamine-2 Receptor Antagonist Start: 3 End: 4 take 1 tablet by mouth twice daily Famotidine (Pepcid) 20 mg tablet Discontinued 20 mg PO TWICE A DAY 8 4 0 October 31, 2022 12:00am June 13, 2023 1:16pm fluconazole 150 mg oral tablet (20 sources) Azole Antifungal Start: 3 End: 3 Fluconazole (Diflucan) 150 mg tablet Discontinued 150 mg PO Every 3 Days 2 0 June 07, 2022 1:00am August 01, 2022 3:03pm may repeat second dose 72 hrs after first dose if symptoms persist Start: 11-22-2020 End: 12-14-2020 take 1 tablet by mouth once daily Fluconazole 200 mg tablet Discontinued 200 mg PO DAILY 1 November 22, 2020 12:00am December 14, 2020 10:34am to be taken 24 hours after finishing cipro if symptoms of vaginal melissa develop as described to patient today Start: 11-01-2019 End: 12-03-2019 take 1 tablet by mouth once daily Fluconazole (Diflucan) 200 mg tablet Discontinued 200 mg PO DAILY 1 November 01, 2019 12:00am December 03, 2019 10:55am to be taken 24 hours after completing CIPRO if still symptomatic Start: 01-30-2018 End: 01-31-2018 Fluconazole (Diflucan) 150 m g tablet Discontinued 150 mg PO Every 3 Days 2 0 0 January 30, 2018 12:00am January 30, 2018 12:00am January 31, 2018 12:12am may repeat second dose 72 hrs after first dose if symptoms persist fluticasone propionate 0.05 mg/actuat metered dose nasal spray (20 sources) Corticosteroid Start: 03-19-2019 End: 04-27-2019 take 2 spray(s) nasal route once daily Fluticasone Propionate 50 mcg/actuation spray,suspension Discontinued 0 .ROUTE .COMPLEX 16 1 March 19, 2019 9:34am April 27, 2019 1:41pm USE 2 SPRAYS IN EACH NOSTRIL ONCE DAILY Start: 02-19-2019 End: 03-19-2019 take 50 ug nasal route once daily Fluticasone Propionate (Flonase Allergy Relief) 50 mcg/actuation spray,suspension Discontinued 2 NMA INTRANASAL DAILY 15.8 1 February 19, 2019 12:00am March 19, 2019 9:34am administer into each nostril Start: 02-19-2019 End: 03-19-2019 take 1 spray(s) nasal route once daily Fluticasone Propionate (Flonase Allergy Relief) 50 mcg/actuation spray,suspension Discontinued 2 SPRAY INTRANASAL DAILY 15.8 February 19, 2019 12:00am March 19, 2019 9:34am administer into each nostril gabapentin 600 mg oral tablet (20 sources) Anti-epileptic Agent Start: 04-08-2018 End: 04-14-2018 take 1 tablet by mouth three times daily Gabapentin 600 mg tablet Discontinued 600 mg PO THREE TIMES A DAY 90 0 April 08, 2018 1:00am April 14, 2018 3:39pm Other postherpetic nervous system involvement Start: 03-27-2018 End: 04-08-2018 take 1 capsule by mouth three times daily Gabapentin 300 mg capsule Discontinued 300 mg PO THREE TIMES A DAY 100 0 March 27, 2018 12:00am April 08, 2018 9:28am Other postherpetic nervous system involvement Start: 03-25-2018 End: 03-27-2018 take 1 capsule by mouth three times daily Gabapentin 100 mg capsule Discontinued 100 mg PO THREE TIMES A DAY 21 7 0 March 25, 2018 12:00am March 31, 2018 1:00am March 27, 2018 2:02pm follow up with pcp in 5-7 days to reassess/ consider extending this medication hydrocortisone 10 mg/ml / neomycin 3.5 mg/ml / polymyxin b 98801 unt/ml otic suspension (20 sources) Aminoglycoside Antibacterial, Polymyxin-class Antibacterial, Corticosteroid Start: 11-28-2017 End: 12-08-2017 [id number]-[id number]-[id number] 3.5-10,000-1 mg/mL-unit/mL-% drops,suspension Discontinued 3 NMA OTIC Q4H 10 10 0 November 28, 2017 12:00am December 07, 2017 12:00am December 08, 2017 12:06am Unspecified otitis externa, unspecified ear apply to (cotton) wick; replace wick every 24 hours Start: 11-28-2017 End: 12-08-2017 [id number] Discon tinued 3 DRP OTIC Q4H 10 10 November 28, 2017 12:00am December 08, 2017 12:06am apply to (cotton) wick; replace wick every 24 hours hydroquinone 40 mg/ml topical cream (20 sources) Melanin Synthesis Inhibitor Start: 06-16-2024 End: 08-06-2024 Hydroquinone 4 % cream Discontinued 1 NMA TOPICAL TWICE A DAY 28.35 1 June 29, 2024 11:19am August 06, 2024 2:26pm hydrOXYzine hydrochloride 25 mg oral tablet (20 sources) Antihistamine Start: 09-16-2019 End: 09-20-2019 take 1 tablet by mouth three times daily as needed Hydroxyzine Hcl 25 mg tablet Discontinued 25 mg PO THREE TIMES A DAY as needed for itching 30 0 September 16, 2019 12:00am September 20, 2019 1:06pm Start: 04-14-2018 End: 04-21-2018 take 1 tablet by mouth at bedtime as needed Hydroxyzine Hcl 50 mg tablet Discontinued 50 mg PO AT BEDTIME as needed for itching 30 April 14, 2018 1:00am April 21, 2018 4:56pm ibuprofen 800 mg oral tablet (20 sources) Nonsteroidal Anti-inflammatory Drug Start: 02-27-2023 End: 08-06-2024 take 1 tablet by mouth three times daily as needed for pain Ibuprofen 800 mg tablet Discontinued 800 mg PO THREE TIMES A DAY as needed for Pain Or Fever 90 February 27, 2023 3:32pm August 06, 2024 2:26pm Start: 08-02-2022 End: 02-27-2023 Ibuprofen 800 mg tablet Disc ontinued 600 mg PO THREE TIMES A DAY as needed for Pain Or Fever 30 August 02, 2022 2:46pm February 27, 2023 3:40pm Start: 08-02-2022 End: 02-27-2023 take 600 mg by mouth three times daily Ibuprofen Discontinued 600 MG PO THREE TIMES A DAY August 02, 2022 2:46pm February 27, 2023 3:40pm Start: 07-27-2021 End: 08-02-2022 take 1 tablet by mouth three times daily as needed for pain Ibuprofen 800 mg tablet Discontinued 800 mg PO THREE TIMES A DAY as needed for Pain Or Fever 30 July 27, 2021 12:33pm August 02, 2022 2:46pm Start: 09-09-2019 End: 06-07-2020 take 1 tablet by mouth every six hours as needed for pain Ibuprofen 600 mg tablet Discontinued 600 mg PO EVERY 6 HOURS as needed for pain 180 September 09, 2019 10:34am December 16, 2019 1:15pm Start: 09-01-2018 End: 08-10-2019 take 1 tablet by mouth three times daily as needed for pain Ibuprofen 800 MG tablet Discontinued 800 mg PO THREE TIMES A DAY as needed for Pain Or Fever July 23, 2019 3:07pm August 10, 2019 7:48am Start: 10-03-2017 End: 06-03-2018 take 1 tablet by mouth twice daily as needed for pain Ibuprofen 400 mg tablet Discontinued 400 mg PO TWICE A DAY as needed for pain 180 0 February 05, 2018 9:52am June 03, 2018 2:57pm Start: 10-03-2017 End: 10-03-2017 take 1 tablet by mouth twice daily Ibuprofen 800 mg tablet Discontinued 800 mg PO TWICE A DAY October 03, 2017 12:00am October 03, 2017 2:01pm take 1 tablet by tracey th once daily as needed ibuprofen 800 MG PO TABS take 1 Tab by mouth daily as needed. 0 Active take 1 tablet by tracey th every six hours as needed ibuprofen 800 MG tablet Take 800 mg by mouth Every 6 hours as needed. 0 Active Comment on above: Take 800 mg by mouth every 6 hours as needed. lidocaine 0.05 mg/mg medicated patch (1 source) Antiarrhythmic, Amide Local Anesthetic Start : 05-03 apply 1 dose topically once daily lidocaine [...] TO AFFECTED AREA. REMOVE AFTER 12 HOURS. methylPREDNISolone 4 mg oral tablet (20 sources) Corticosteroid Start : 05-14 End: 05-20 take 1 tablet by mouth once Methylprednisolone (Medrol (Epter)) 4 mg tablets,dose pack Discontinued 4 mg PO per package directions 21 6 0 May 14, 2022 1:00am May 19, 2022 1:00am May 20, 2022 1:04am Start: 04-02-2020 End: 06-07-2020 take 1 tablet by mouth once Methylprednisolone (Medrol (Peter)) 4 mg tablets,dose pack Discontinued 0 PO per package directions 21 0 April 02, 2020 1:00am June 07, 2020 3:56pm PO PER PKG DIR miconazole nitrate 40 mg/ml vaginal cream (20 sources) Azole Antifungal Start: 11-01-2019 End: 11-04-2019 Miconazole Nitrate (Monistat 3) 200 mg/5 gram (4 %) cream Discontinued 1 NMA VAGINAL AT BEDTIME 15 3 0 November 01, 2019 12:00am November 03, 2019 12:00am November 04, 2019 12:02am Start: 11-01-2019 End: 11-04-2019 Miconazole Nitrate (Monistat 3) 200 mg/5 gram (4 %) cream Discontinued 1 APPFUL VAGINAL AT BEDTIME 15 3 November 01, 2019 12:00am November 04, 2019 12:02am Mupirocin (17 sources) RNA Synthetase Inhibitor Antibacterial Start: 08-12-2024 End: 11-08-2024 Mupirocin 2 % ointment Discontinued 1 NMA TOPICAL TWICE A DAY 15 0 August 12, 2024 12:00am November 08, 2024 3:18pm Start: 08-12-2024 End: 11-08-2024 Mupirocin 2 % ointment Disco ntinued 1 NMA TOPICAL TWICE A DAY August 12, 2024 12:00am November 08, 2024 3:18pm Start: 08-12-2024 Mupirocin 2 % ointment Active 1 NMA TOPICAL TWICE A DAY August 12, 2024 12:00am Nirmatrelvir-Ritonavir (20 sources) Start: 03-10-2022 End: 05-21-2022 Nirmatrelvir-Ritonavir (Paxl ovid (Eua)) 300 mg (150 mg x 2)-100 mg tablets,dose pack Discontinued 0 PO .COMPLEX 30 March 10, 2022 12:00am May 21, 2022 2:39pm take TWO 150 mg tablets of nirmatrelvir with ONE 100 mg tablet of ritonavir twice daily for 5 days PO Start: 03-10-2022 End: 05-21-2022 Nirmatrelvir-Ritonavir (Paxl ovid (Eua)) 300 mg (150 mg x 2)-100 mg tablets,dose pack Discontinued 0 PO .COMPLEX 30 March 10, 2022 12:00am May 21, 2022 2:39pm take TWO 150 mg tablets of nirmatrelvir with ONE 100 mg tablet of ritonavir twice daily for 5 days PO Start: 03-10-2022 End: 05-21-2022 Nirmatrelvir-Ritonavir (Paxl ovid (Eua)) 300 mg (150 mg x 2)-100 mg tablets,dose pack Discontinued 0 PO .COMPLEX March 09, 2022 11:00pm May 21, 2022 1:39pm take TWO 150 mg tablets of nirmatrelvir with ONE 100 mg tablet of ritonavir twice daily for 5 days PO Start: 03-10-2022 Nirmatrelvir-R itonavir (Paxlovid (Eua)) 300 mg (150 mg x 2)- 100 mg tablets,dose pack Active 0 PO .COMPLEX March 09, 2022 11:00pm take TWO 150 mg tablets of nirmatrelvir with ONE 100 mg tablet of ritonavir twice daily for 5 days PO Nirmatrelvir-Ritonavir (20 sources) Start: 03-10-2022 End: 03-10-2022 Nirmatrelvir-Ritonavir (Paxl ovid (Eua)) 150-100 mg tablets,dose pack Discontinued 0 PO per package directions March 10, 2022 12:00am March 10, 2022 10:00am PO PER PKG DIR, hold statin while on this med Start: 03-10-2022 End: 03-10-2022 Nirmatrelvir-Ritonavir (Paxl ovid (Eua)) 150-100 mg tablets,dose pack Discontinued 0 PO per package directions March 10, 2022 12:00am March 10, 2022 10:00am PO PER PKG DIR, hold statin while on this med Start: 03-10-2022 End: 03-10-2022 Nirmatrelvir-Ritonavir (Paxl ovid (Eua)) 150-100 mg tablets,dose pack Discontinued 0 PO per package directions March 09, 2022 11:00pm March 10, 2022 9:00am PO PER PKG DIR, hold statin while on this med nitrofurantoin, macrocrystals 25 mg / nitrofurantoin, monohydrate 75 mg oral capsule (20 sources) Nitrofuran Antibacterial Start: 08-21-2022 End: 08-28-2022 take 1 capsule by mouth every twelve hours at mealtime Nitrofurantoin Monohyd/M-Cryst (Macrobid) 100 mg capsule Discontinued 100 mg PO Q12H 14 7 0 August 21, 2022 12:00am August 27, 2022 12:00am August 28, 2022 12:04am must administer with a meal/food Start: 06-05-2022 End: 06-10-2022 take 1 capsule by mouth every twelve hours at mealtime Nitrofurantoin Monohyd/M-Cryst (Macrobid) 100 mg capsule Discontinued 100 mg PO Q12H 10 5 0 June 05, 2022 1:00am June 09, 2022 1:00am June 10, 2022 1:04am must administer with a meal/food Start: 09-24-2021 End: 09-29-2021 take 1 capsule by mouth every twelve hours at mealtime Nitrofurantoin Monohyd/M-Cryst (Macrobid) 100 mg capsule Discontinued 100 mg PO Q12H 10 5 0 September 24, 2021 12:00am September 28, 2021 12:00am September 29, 2021 12:06am must administer with a meal/food Start: 11-07-2020 End: 11-14-2020 take 1 capsule by mouth every twelve hours at mealtime Nitrofurantoin Monohyd/M-Cryst 100 mg capsule Discontinued 1 NMA PO Q12H 14 7 0 November 07, 2020 12:00am November 13, 2020 12:00am November 14, 2020 12:01am administer with a meal/food; swallow whole; do not open, crush, dissolve , or chew Start: 01-31-2020 End: 02-07-2020 take 1 capsule by mouth every twelve hours at mealtime Nitrofurantoin Monohyd/M-Cryst 100 mg capsule Discontinued 1 NMA PO Q12H 14 7 0 January 31, 2020 12:00am February 06, 2020 12:00am February 07, 2020 12:02am administer with a meal/food; swallow whole; do not open, crush, dissolve , or chew Start: 12-16-2019 End: 01-19-2020 take 1 capsule by mouth at mealtime Nitrofurantoin Monohyd/M-Cryst (Macrobid) 100 mg capsule Discontinued 100 mg PO .COMPLEX 14 0 December 16, 2019 12:00am January 19, 2020 10:52am 100 mg PO at bedtime; must administer with a meal/food Start: 12-03-2019 End: 12-10-2019 take 1 capsule by mouth every twelve hours at mealtime Nitrofurantoin Monohyd/M-Cryst 100 mg capsule Discontinued 1 NMA PO Q12H 14 7 0 December 03, 2019 12:00am December 09, 2019 12:00am December 10, 2019 12:03am administer with a meal/food; swallow whole; do not open, crush, dissolve , or chew nortriptyline 50 mg oral capsule (20 sources) Tricyclic Antidepressant Start: 04-21-2018 End: 06-03-2018 take 1 capsule by mouth at bedtime Nortriptyline (Pamelor) 50 mg capsule Discontinued 50 mg PO AT BEDTIME 30 April 21, 2018 1:00am June 03, 2018 2:57pm ondansetron 4 mg disintegrating oral tablet (20 sources) Serotonin-3 Receptor Antagonist Start: 09-18-2020 End: 11-07-2020 take 1 tablet by mouth every eight hours as needed for nausea Ondansetron 4 MG tablet Discontinued 4 mg PO EVERY 8 HOURS NEEDED as needed for Nausea September 18, 2020 12:00am November 07, 2020 5:08pm pimecrolimus 10 mg/ml topical cream (20 sources) Calcineurin Inhibitor Immunosuppressant Start: 04-21-2018 End: 06-03-2018 Pimecrolimus (Elidel) 1 % cream Discontinued 1 NMA TOPICAL TWICE A DAY 60 1 April 21, 2018 1:00am June 03, 2018 2:57pm do not use occlusive dressing predniSONE 20 mg oral tablet (20 sources) Start: 08-02-2024 End: 08-12-2024 take 1 tablet by mouth twice daily Prednisone 20 mg tablet Discontinued 20 mg PO TWICE A DAY 14 0 August 02, 2024 12:00am August 12, 2024 1:44pm Start: 08-21-2022 End: 12-19-2022 take 2 tablets by mouth once daily Prednisone 20 mg tablet Discontinued 40 mg PO DAILY 8 4 0 October 31, 2022 12:00am December 19, 2022 3:13pm Start: 08-21-2022 End: 12-19-2022 take 40 mg by mouth once daily Prednisone Discontinued 40 MG PO DAILY 8 4 October 31, 2022 12:00am December 19, 2022 3:13pm Start: 02-19-2019 End: 04-19-2019 take 2 tablets by mouth once daily at mealtime Prednisone 20 mg tablet Discontinued 40 mg PO daily 10 February 19, 2019 12:00am April 19, 2019 11:42am administer with food or milk Start: 02-19-2019 End: 04-19-2019 take 40 mg by mouth once daily at mealtime Prednisone Discontinued 40 MG PO daily February 19, 2019 12:00am April 19, 2019 11:42am administer with food or milk Start: 03-25-2018 End: 04-14-2018 take 1 tablet by mouth once daily Prednisone 50 mg tablet Discontinued 50 mg PO DAILY 5 March 25, 2018 12:00am April 14, 2018 3:00pm pregabalin 75 mg oral capsule (20 sources) Start: 04-14-2018 End: 04-21-2018 take 1 capsule by mouth twice daily Pregabalin (Lyrica) 75 mg capsule Discontinued 75 mg PO TWICE A DAY 60 0 April 14, 2018 1:00am April 21, 2018 4:57pm raNITIdine 150 mg oral tablet (20 sources) Histamine-2 Receptor Antagonist Start: 10-03-2017 End: 11-28-2017 take 1 tablet by mouth at bedtime Ranitidine Hcl 150 mg tablet Discontinued 150 mg PO AT BEDTIME October 03, 2017 12:00am November 28, 2017 2:45pm Sennosides (Senna) 8.6 MG tablet (20 sources) Start: 09-18-2020 End: 11-07-2020 take 1 tablet by mouth at bedtime Sennosides (Senna) 8.6 MG tablet Discontinued 8.6 MG PO AT BEDTIME September 18, 2020 5:54pm November 07, 2020 5:08pm Start: 09-18-2020 End: 11-07-2020 take 1 tablet by mouth at bedtime Sennosides (Senna) 8.6 MG tablet Discontinued 8.6 mg PO AT BEDTIME 10 September 18, 2020 12:00am November 07, 2020 5:08pm Start: 09-18-2020 End: 11-07-2020 take 1 tablet by mouth at bedtime Sennosides (Senna) 8.6 MG tablet Discontinued 8.6 mg PO AT BEDTIME September 18, 2020 12:00am November 07, 2020 5:08pm Start: 09-18-2020 End: 11-07-2020 take 1 tablet by mouth at bedtime Sennosides (Senna) 8.6 MG tablet Discontinued 8.6 MG PO AT BEDTIME September 18, 2020 12:00am November 07, 2020 5:08pm Start: 09-18-2020 End: 11-07-2020 take 1 tablet by mouth at bedtime Sennosides (Senna) 8.6 MG tablet Discontinued 8.6 MG PO AT BEDTIME September 17, 2020 11:00pm November 07, 2020 4:08pm triamcinolone acetonide 0.25 mg/ml topical cream (20 sources) Corticosteroid Start: 04-22-2018 End: 06-03-2018 Triamcinolone Acetonide 0.025 % cream Discontinued 1 NMA TOPICAL TWICE A DAY 80 1 April 22, 2018 1:00am June 03, 2018 2:57pm trimethoprim 100 mg oral tablet (20 sources) Dihydrofolate Reductase Inhibitor Antibacterial Start: 02-27-2023 End: 08-06-2024 take 1 tablet by mouth once daily Trimethoprim 100 mg tablet Discontinued 100 mg PO DAILY February 27, 2023 12:00am August 06, 2024 2:27pm valACYclovir 1000 mg oral tablet (20 sources) Herpesvirus Nucleoside Analog DNA Polymerase Inhibitor, Herpes Simplex Virus Nucleoside Analog DNA Polymerase Inhibitor, Herpes Zoster Virus Nucleoside Analog DNA Polymerase Inhibitor Start: 09-16-2019 End: 12-03-2019 Valacyclovir 1 gram tablet Discontinued 1000 mg PO Q8H 21 0 September 16, 2019 12:00am December 03, 2019 10:55am Start: 09-16-2019 End: 12-03-2019 take 1000 mg by mouth every eight hours Valacyclovir Discontinued 1000 MG PO Q8H September 16, 2019 12:00am December 03, 2019 10:55am Start: 03-25-2018 End: 04-01-2018 Valacyclovir 1 gram tablet Discontinued 1000 mg PO THREE TIMES A DAY 21 7 0 March 25, 2018 12:00am March 31, 2018 1:00am April 01, 2018 1:08am STOP ACYCLOVOR Start: 03-25-2018 End: 04-01-2018 take 1000 mg by mouth three times daily Valacyclovir Discontinued 1000 MG PO THREE TIMES A DAY 21 March 25, 2018 12:00am April 01, 2018 1:08am STOP ACYCLOVOR Vibegron (20 sources) Start: 02-27-2023 End: 01-14-2025 take 1 tablet by mouth once daily Vibegron 75 mg tablet Discontinued 75 mg PO DAILY February 27, 2023 12:00am January 14, 2025 12:10pm Start: 02-27-2023 take 1 tablet by mouth once da kermit Vibegron 75 mg tablet Active 75 mg PO DAILY February 27, 2023 12:00am Start: 02-27-2023 take 75 mg by mouth once daily Vibegron Active 75 MG PO DAILY February 27, 2023 12:00am Start: 02-27-2023 take 75 mg by mouth once daily Vibegron Active 75 MG PO DAILY February 26, 2023 11:00pm Problems Active Problems Problem Classification Problem Date Documented Date Episodic/Chronic Acute bronchitis (20 sources) Acute bronchitis; Translations: [Acute bronchitis, unspecified] 01-17-2021 Episodic Administrative/social admission (6 sources) Fear of urinary disease; Translations: [Person with feared health complaint in whom no diagnosis is made] 12-21-2024 Episodic Allergic reactions (20 sources) Allergic reaction; Translations: [Allergy, unspecified, initial encounter] 08-21-2022 Episodic Anxiety disorders (20 sources) Anxiety; Translations: [Anxiety disorder, unspecified] 10-03-2017 Chronic Cancer of bronchus; lung (20 sources) Malignant tumor of lung; Translations: [Malignant neoplasm of unspecified part of unspecified bronchus or lung] 06-03-2018 Chronic Cancer of bronchus; lung (20 sources) History of malignant neoplasm of thoracic cavity structure; Translations: [Personal history of other malignant neoplasm of bronchus and lung] 06-07-2020 Episodic Cardiac dysrhythmias (2 sources) Palpitations 07-23-2019 Episodic Chronic obstructive pulmonary disease and bronchiectasis (20 sources) Bronchitis; Translations: [Bronchitis, not specified as acute or chronic] 04-29-2021 Episodic Chronic ulcer of skin (9 sources) Ulcer of lower extremity; Translations: [Non-pressure chronic ulcer of unspecified part of right lower leg with fat layer exposed] Onset: 01-20-2025 01-19-2025 Chronic Coagulation and hemorrhagic disorders (20 sources) Easy bruising; Translations: [Spontaneous ecchymoses] Onset: 11-15-2024 08-01-2022 Episodic Coronary atherosclerosis and other heart disease (2 sources) Calcification of coronary artery 07-23-2019 Chronic Esophageal disorders (20 sources) Gastroesophageal reflux disease; Translations: [Gastro-esophageal reflux disease without esophagitis] 10-03-2017 Chronic Genitourinary symptoms and ill-defined conditions (20 sources) Hematuria, unspecified; Translations: [Hematuria, unspecified] Onset: 01-21-2025 08-01-2022 Episodic Heart valve disorders (2 sources) Mitral valve prolapse 07-23-2019 Chronic Immunizations and screening for infectious disease (20 sources) Contact with or exposure to other viral diseases; Translations: [Exposure to COVID-19 virus] Episodic Influenza (20 sources) Influenza due to Influenza A virus; Translations: [Influenza due to other identified influenza virus with other respiratory manifestations] Onset: 05-17-2022 Episodic Nonspecific chest pain (17 sources) Chest pain; Translations: [Chest pain, unspecified] 01-08-2024 Episodic Nutritional deficiencies (20 sources) Vitamin D deficiency; Translations: [Vitamin D deficiency, unspecified] 10-03-2017 Chronic Open wounds of extremities (20 sources) Tear of skin; Translations: [Laceration without foreign body, left lower leg, initial encounter] 12-20-2022 Episodic Open wounds of extremities (13 sources) Tear of skin; Translations: [Laceration without foreign body, right lower leg, initial encounter] 12-14-2024 Episodic Osteoarthritis (20 sources) Osteoarthritis; Translations: [Unspecified osteoarthritis, unspecified site] Onset: 11-05-2024 12-09-2017 Chronic Other circulatory disease (20 sources) Ecchymosis; Translations: [Hemorrhage, not elsewhere classified] 10-03-2017 Episodic Other circulatory disease (2 sources) Hemorrhage, not elsewhere classified; Translations: [Hemorrhage, not elsewhere classified] Onset: 11-08-2024 Episodic Other connective tissue disease (1 source) Pain in right leg; Translations: [Pain in right leg] Onset: 12-13-2024 Episodic Other ear and sense organ disorders (20 sources) Otitis externa; Translations: [Unspecified otitis externa, unspecified ear] 12-09-2017 Chronic Other ear and sense organ disorders (20 sources) Impacted cerumen; Translations: [Impacted cerumen, left ear] 05-13-2023 Episodic Other ear and sense organ disorders (3 sources) Impacted cerumen, left ear; Translations: [Impacted cerumen] 05-13-2023 Episodic Other ear and sense organ disorders (20 sources) Irritation of ear; Translations: [Other specified disorders of left ear] 06-13-2023 Episodic Other ear and sense organ disorders (4 sources) Other specified disorders of left ear; Translations: [Other disorders of ear] 06-13-2023 Episodic Other infections; including parasitic (20 sources) History of herpes zoster; Translations: [Personal history of other infectious and parasitic diseases] 08-09-2019 Episodic Other injuries and conditions due to external causes (20 sources) Abrasion; Translations: [Other injury of unspecified body region, initial encounter] 08-06-2024 Episodic Other injuries and conditions due to external causes (10 sources) Hematoma; Translations: [Other injury of unspecified body region, initial encounter] 12-14-2024 Episodic Other injuries and conditions due to external causes (2 sources) Unspecified injury of thorax, initial encounter; Translations: [Unspecified injury of thorax, initial encounter] Onset: 01-19-2025 Episodic Other lower respiratory disease (20 sources) Dyspnea; Translations: [Dyspnea, unspecified] 07-23-2019 Episodic Other lower respiratory disease (20 sources) Cough; Translations: [Acute cough] Episodic Other lower respiratory disease (17 sources) Cough; Translations: [Acute cough] 04-29-2021 Episodic Other lower respiratory disease (1 source) Other forms of dyspnea; Translations: [Other forms of dyspnea] Onset: 12-16-2024 Episodic Other nervous system disorders (20 sources) Facial paresthesia; Translations: [Paresthesia of skin] 08-22-2024 Episodic Other nervous system disorders (1 source) Paresthesia of skin; Translations: [Paresthesia of skin] Onset: 12-01-2024 Episodic Other skin disorders (18 sources) Disorder of skin pigmentation; Translations: [Disorder of pigmentation, unspecified] 06-16-2024 Episodic Other upper respiratory disease (20 sources) Congestion of nasal sinus; Translations: [Nasal congestion] 01-17-2021 Episodic Other upper respiratory disease (20 sources) Respiratory tract congestion; Translations: [Nasal congestion] 12-29-2020 Episodic Other upper respiratory infections (20 sources) Acute upper respiratory infection; Translations: [Acute upper respiratory infection, unspecified] Onset: 12-01-2024 12-29-2020 Episodic Residual codes; unclassified (1 source) Influenza-like symptoms; Translations: [Other general symptoms and signs] Episodic Residual codes; unclassified (2 sources) Other general symptoms and signs; Translations: [Other general symptoms and signs] Onset: 05-17-2022 Episodic Residual codes; unclassified (17 sources) Family history of coronary arteriosclerosis; Translations: [Family history of ischemic heart disease and other diseases of the circulatory system] 06-29-2024 Episodic Residual codes; unclassified (16 sources) Edema; Translations: [Edema, unspecified] 12-12-2024 Episodic Residual codes; unclassified (4 sources) Edema of right lower leg; Translations: [Localized edema] 01-19-2025 Episodic Residual codes; unclassified (1 source) Localized edema; Translations: [Localized edema] Onset: 01-20-2025 Episodic Residual codes; unclassified (1 source) Edema, unspecified; Translations: [Edema, unspecified] Onset: 12-12-2024 Episodic Skin and subcutaneous tissue infections (20 sources) Staphylococcal infection of skin; Translations: [Local infection of the skin and subcutaneous tissue, unspecified] Onset: 01-20-2025 08-12-2024 Episodic Sprains and strains (20 sources) Injury of wrist; Translations: [Strain of unspecified muscle, fascia and tendon at wrist and hand level, left hand, initial encounter] 09-01-2020 Episodic Syncope (20 sources) Vasovagal symptom; Translations: [Syncope and collapse] 12-14-2020 Episodic Transient cerebral ischemia (8 sources) Transient cerebral ischemia; Translations: [Transient cerebral ischemic attack, unspecified] 08-08-2021 Chronic Unclassified (1 source) Acute cough; Translations: [Acute cough] Onset: 05-17-2022 Unclassified (1 source) Cough, unspecified; Translations: [Cough, unspecified] Onset: 12-14-2024 Viral infection (20 sources) Herpes zoster; Translations: [Zoster without complications] Episodic Past or Other Problems Problem Classification Problem Date Documented Da te Episodic/Chronic Nonmalignant breast conditions (18 sources) Pain of breast; Translations: [Mastodynia] Onset: 01-29-2024 01-13-2024 Episodic Other lower respiratory disease (20 sources) Chronic cough; Translations: [Chronic cough] Onset: 08-06-2024 Episodic Other lower respiratory disease (2 sources) Dyspnea, unspecified; Translations: [Dyspnea, unspecified] Onset: 06-16-2024 Episodic Other screening for suspected conditions (not mental disorders or infectious disease) (20 sources) Patient encounter status; Translations: [Encounter for other screening for malignant neoplasm of breast] Onset: 09-16-2024 05-20-2023 Episodic Other skin disorders (1 source) Disorder of pigmentation, unspecified; Translations: [Disorder of pigmentation, unspecified] Onset: 06-16-2024 Episodic Spondylosis; intervertebral disc disorders; other back problems (20 sources) Lumbar radiculopathy; Translations: [Radiculopathy, lumbar region] Onset: 04-13-2024 10-03-2017 Episodic Superficial injury; contusion (20 sources) Contusion of forehead; Translations: [Contusion of other part of head, initial encounter] Onset: 06-16-2024 06-16-2024 Episodic Unclassified (20 sources) history of bunionectomy 12-14-2021 Comment on above: 05/16/2006 - Pasquale bunionectomy Unclassified (1 source) Acute cough; Translations: [Acute cough] Onset: 05-17-2022 Urinary tract infections (20 sources) Urinary tract infectious disease; Translations: [Urinary tract infection, site not specified] Onset: 05-27-2024 Episodic Results Test Name Value Interpretation Reference Range Facility Culture, Anaerobic Any Sourc rochelle 01-21-2025 ABIEL ALVAREZ WOUND Checking for anaerobes, further studies to follow. Normal [facility] Comment on above: Performed By: #### M 100.2000, M100.4001, M100.3000 ####[facility] [id number] [place], [address] Wound Cultureon 01-21-2025 WC R ALVAREZ WOUND Further studies to follow. Wound Culture Normal [facility] Comment on above: Performed By: #### M 100.2000, M100.4001, M100.3000 ####[facility] [id number] [place], [address] Gram Stainon 01-19-2025 GS R ALVAREZ WOUND Gram Stain No organisms seen No cells seen Normal [facility] Comment on above: Performed By: #### M 100.2000, M100.4001, M100.3000 ####[facility] [id number] [place], [address] Gram stainOrdered By: Hayde payton on 01-19-2025 Microscopic observation Gram stain Nom (Unsp spec) [facility] Ribs Unil 2V No CXRon 2024 Ribs Unil 2V No CXR [facility] [address] [place] [address] Ribs Unil 2V No CXR MR#: [id number] Acct: [id number] Name: VALERY DEVINE Rep #: [id number] : 1950 F 74 From: Chaz Cuevas MD PCP: Dr. Bean Bettencourt, DO Status: REG CLI Study: Ribs Unil 2V No CXR Date of Exam: 01/19/25 Exam# [id number] Ordering Dr: Mark Kirby PROCEDURE: RIBS UNIL 2V NO CXR 01/19/2025 REASON FOR EXAM: RIB INJURY TECHNIQUE: RIBS UNIL 2V NO CXR COMPARISON: 08/06/2024 FINDINGS: No acute fracture or dislocation appreciated. Mild degenerative changes of the spine. Imaged lung otero are clear. No pneumothorax or sizable pleural effusion. Surgical clips/chain suture material in the medial left lung/hilar region. Mildly enlarged cardiac silhouette with a moderate-large hiatal hernia. RAD/Ribs Unil 2V No CXR IMPRESSION: No evidence of acute fracture. Moderate-large hiatal hernia. Reading Location: [id number] CC: Dr. Bean Bettencourt, DO; JEY Jimenez Manager Recruiting: Signed Normal [facility] Urgent Care Visit Reporton 0 01-19-2025 Urgent Care Visit Report [facility] [address], [address] [place] [address] OFFICE VISIT Date of Service: 01/19/25 MR#: [id number] Acct: [id number] Name: VALERY DEVINE Rep #: [id number] : 1950 Provider: JEY Jimenez Age/Sex: 74/F [place] [facility] [place] Status: Signed Intake Vital Signs 01/19/25 08:23 01/19/25 15:58 Height 5 ft 4 in Position Sitting Respiration 16 Pulse 70 Temp 98.1 F Temp Source Oral Pulse Oximetry (%) 97 Oxygen Delivery Method room air Intake Visit Reasons: L SIDE CHEST INJURY FROM FALL Chief Complaint: Left side chest injury Accompanied by: Self Is patient in pain?: Yes Pain scale (1-10): 10 Allergies cephalexin Allergy (Intermediate, Verified 01/19/25 15:57) Rash nitrofurantoin Allergy (Intermediate, Verified 01/19/25 15:57) Rash Sulfa (Sulfonamide Antibiotics) Allergy (Intermediate, Verified 01/19/25 15:57) sores in mouth amoxicillin (From Amoxil) Adverse Reaction (Intermediate, Verified 01/19/25 15:57) yeast bladder infections Medications ???Medication ???Instructions ???Recorded ???Confirmed ???Type atorvastatin 10 mg tablet 10 mg PO QHS cholesterol 06/13/20 01/19/25 History diclofenac sodium 1 % topical gel 4 g topical .QID PRN Pain Or Feve r 07/27/21 01/19/25 Rx #100 grams albuterol sulfate 90 mcg/actuation 1 - 2 puff inhalation Q6H PRN 01/19/25 Rx aerosol inhaler (ProAir HFA) shortness of breath or wheezing #8.5 grams ergocalciferol (vitamin D2) 1,250 50,000 unit PO QWEEK supplement 0 01/13/23 01/19/25 Rx mcg (50,000 unit) capsule #20 caps magnesium oxide 400 mg PO DAILY #90 caps 03/18/23 01/19/25 Rx esomeprazole magnesium 40 mg 40 mg PO QDAY gerd #90 caps 01/19/25 Rx capsule,delayed release ipratropium bromide 21 mcg (0.03 2 spray intranasal BID-TID PRN 05/1901/19/25 Rx %) nasal spray postnasal drainage #30 mL acetaminophen 500 mg tablet 1,000 mg PO Q8 PRN fever or pain 0 11/08/24 01/19/25 History ciprofloxacin HCl 500 mg tablet 500 mg PO BID #14 tabs 01/14/25 Rx meloxicam 15 mg tablet 15 mg PO DAILY 01/19/25 01/19/25 H istory oxycodone 5 mg capsule 5 mg PO Q6H 01/19/25 01/19/25 Hist ory tramadol 50 mg tablet 50 mg PO Q6H PRN pain 01/19/25 History Have you fallen in the past year?: Yes Nurse's Note: Patient was on a step stool today and she fell and the step stool got her on the left side of her chest . Patient states he can't take a deep breath with out pain. [facility] Medical History (Updated 01/19/25 @ 16:27 by Mark KHANNA, PA) Chest wall contusion Abnormal bruising Impacted cerumen, left ear Dysuria HLD (hyperlipidemia) Bruises easily History of shingles Vitamin D deficiency Sciatica Lumbar radiculopathy GERD (gastroesophageal reflux disease) Lung cancer Anxiety Surgical History History of total left knee replacement History of bilateral cataract extraction History of lateral meniscus repair of left knee History of cystoscopy history of bunionectomy History of colonoscopy History of lobectomy of lung History of back surgery History of esophagogastroduodenoscopy (EGD) History of section Family History Aunt Colon cancer Diabetes Mother Thyroid disorder Heart disease Son Hypercholesteremia Grandmother Heart disease Father COPD (chronic obstructive pulmonary disease) Social History Smoking Status: Former smoker quit date: 05/26/08 Tobacco: How many years used: 40 alcohol intake: current alcohol intake frequency: holidays/special occasions only substance use type: does not use HPI HPI Chief Complaint: Left side chest injury Details: VALERY DEVINE, is a 74 F who presents to the office today for initial evaluation status post trip and fall while on a stepstool changing a light bulb, causing her to have the left lateral chest wall hit the same type of stepstool. She notes localized pain to the same. She notes pain is aggravated touch, taking a deep breath. No complaints of cough nor complaints of chest pressure with shortness of breath or dyspnea on exertion. No rget-aud-zupgoxe medication taken to assist. No other associated symptoms and no alleviating/aggravating factors. ROS Const Constitutional: No other (As above) Exam Const General: cooperative, healthy appearing and no acute distress Nutritional Appearance: average body habitus Orientation: alert and awake HENAR Head: normal to inspection Ears: hearing grossly normal bilaterally and external ears normal Nose: external nose normal and no nasal discharge Neck Neck: normal vis (more content not included)... Normal [facility] Wound Ctr History AND Physic kelly 01-19-2025 Wound Ctr History & Physical [facility] [address] [place] [address] H P Exam - Wound Care 01/19/25 1006 MR#: [id number] Acct: [id number] Name: VALERY DEVINE Rep #: [id number] : 1950 74 From: Hayde Sandoval NP DIRECTOR OF [employer]UMNI RELATIONS-C PCP: Dr. Bean Bettencourt, DO Status:REG RCR Location: History of Present Illness Date of Service: 01/19/25 Chief Complaint: Follow-up right leg alvarez trauma. History of Wound: 74-year-old white female who fell in her closet and had a superficial avulsion laceration from under her knee all the way down to her ankle. She went to urgent care at [facility] and they sent her here she also thought she had a urinary tract infection so they put her on ciprofloxacin and she has been dressing it with sfgr-feu-[id number] antibiotics Epsom salt soaks and Band-Aids. [facility] Medical History Abnormal bruising Impacted cerumen, left ear Dysuria HLD (hyperlipidemia) Bruises easily History of shingles Vitamin D deficiency Sciatica Lumbar radiculopathy GERD (gastroesophageal reflux disease) Lung cancer Anxiety Home Medications ???Medication ???Instructions ???Recorded ???Last Taken ???Type atorvastatin 10 mg tablet 10 mg PO QHS cholesterol 06/13/20 Unknown History diclofenac sodium 1 % topical gel 4 g topical .QID PRN Pain Or Feve r 07/27/21 Unknown Rx #100 grams albuterol sulfate 90 mcg/actuation 1 - 2 puff inhalation Q6H PRN Unknown Rx aerosol inhaler (ProAir HFA) shortness of breath or wheezing #8.5 grams ergocalciferol (vitamin D2) 1,250 50,000 unit PO QWEEK supplement 0 01/13/23 Unknown Rx mcg (50,000 unit) capsule #20 caps magnesium oxide 400 mg PO DAILY #90 caps 03/18/23 Unknown Rx esomeprazole magnesium 40 mg 40 mg PO QDAY gerd #90 caps Unknown Rx capsule,delayed release ipratropium bromide 21 mcg (0.03 2 spray intranasal BID-TID PRN 05/19 Unknown Rx %) nasal spray postnasal drainage #30 mL acetaminophen 500 mg tablet 1,000 mg PO Q8 PRN fever or pain 0 11/08/24 Unknown History ciprofloxacin HCl 500 mg tablet 500 mg PO BID #14 tabs 01/14/25 Un known Rx meloxicam 15 mg tablet 15 mg PO DAILY 01/19/25 Unknown Hi story oxycodone 5 mg capsule 5 mg PO Q6H 01/19/25 Unknown Histo ry tramadol 50 mg tablet 50 mg PO Q6H PRN pain 01/19/25 Unk nown History Allergy/AdvReac Type Severity Reaction Status Date / Time cephalexin Allergy Intermediate Rash Verified 12/21/24 14:56 nitrofurantoin Allergy Intermediate Rash Verified 12/21/24 14:56 Sulfa (Sulfonamide Allergy Intermediate sores in Verified 12/21/24 14:56 Antibiotics) mouth amoxicillin (From Amoxil) AdvReac Intermediate yeast Verified 12/21/24 14:56 bladder infections Family History Aunt Colon cancer Diabetes Mother Thyroid disorder Heart disease Son Hypercholesteremia Grandmother Heart disease Father COPD (chronic obstructive pulmonary disease) Surgical History History of total left knee replacement History of bilateral cataract extraction History of lateral meniscus repair of left knee History of cystoscopy history of bunionectomy History of colonoscopy History of lobectomy of lung History of back surgery History of esophagogastroduodenoscopy (EGD) History of section Social History Smoking Status: Former smoker quit date: 05/26/08 Tobacco: How many years used: 40 alcohol intake: current alcohol intake frequency: holidays/special occasions only substance use type: does not use ROS Constitutional Constitutional: Reports systems reviewed and no addt'l complaints, except as documented Eyes Eyes: Reports systems reviewed and no addt'l complaints, except as documented ENT HEENT: Reports systems reviewed and no addt'l complaints, except as documented Cardiovascular Cardiovascular: Reports systems reviewed and no addt'l complaints, except as documented Respiratory/Chest Respiratory/Chest: Reports systems reviewed and no addt'l complaints, except as documented Gastrointestinal Gastrointestinal: Reports systems reviewed and no addt'l complaints, except as documented Genitourinary Genitourinary: Reports systems reviewed and no addt'l complaints, except as documented Musculoskeletal Musculoskeletal: Reports systems reviewed and no addt'l complaints, except as documented Integumentary Integumentary: Reports wounds and other Details: Right leg is slight and edematous and has an open wound on the right alvarez area from trauma in November. Bleeding under control no sign of infection Neurologic Neurologic: Reports systems reviewed and no addt'l complaint (more content not included)... Normal [facility] Urine Cultureon 01-16-2025 URC Below infection leve l. Mixed Gram Positive Organisms [place] Count 1000-10,000 MIXC Mixed contaminants. Submit a new specimen if indicated. Normal [facility] Comment on above: Performed By: #### M 100.2200 #### [facility] [address] [place], [address] Laboratory - Chemistry and C hemistry - challengeOrdered By: Mark Kirby on 01-14-2025 Bilirubin Ql (U) Negative [facility] Glucose Ql (U) Negative [facility] Ketones Ql (U) Negative [facility] pH (U) 7.5 [pH] [facility] Specific gravity (U) [Rel density] 1.010 [facility] Urobilinogen (U) [Mass/Vol] 0.2042009 mg/dL [facility] Laboratory - Hematology and Cell countsOrdered By: Mark Kirby on 01-14-2025 Hemoglobin Ql (U) Negative [facility] Laboratory - Specimen inform ationOrdered By: Mark Kirby on 01-14-2025 Clarity (U) Clear [facility] Color (U) YELLOW [facility] Laboratory - UrinalysisOrder ed By: Mark Kirby on 01-14-2025 Nitrite Ql (U) Negative [facility] Protein Ql (U) Trace [facility] No Panel InformationOrdered By: Mark Kirby on 01-14-2025 Urine Leukocytes Negatve [facility] Urine Non-Hemolyzed Blood Negative [facility] Urgent Care Visit Reporton 0 01-14-2025 Urgent Care Visit Report [facility] [address], [address] [place] [address] OFFICE VISIT Date of Service: 01/14/25 MR#: [id number] Acct: [id number] Name: VALERY DEVINE Rep #: [id number] : 1950 Provider: JEY Jimenez Age/Sex: 74/F [place] [facility] [place] Status: Signed Intake Vital Signs 12/21/24 15:02 01/14/25 12:11 Height 5 ft 4 in 5 ft 4 in Weight: 164 lb 168 lb BMI 28.1 28.8 BP 98/64 138/84 H Blood Pressure Location Lt brachial Rt brachial Position Sitting Sitting Respiration 16 Pulse 81 67 Pulse Source Monitor Monitor Temp 96.2 F L 97.7 F L Temp Source Temporal Oral Pulse Oximetry (%) 96 97 Oxygen Delivery Method room air room air Intake Visit Reasons: CONCERN FOR UTI Chief Complaint: UTI Accompanied by: Self Allergies cephalexin Allergy (Intermediate, Verified 12/21/24 14:56) Rash nitrofurantoin Allergy (Intermediate, Verified 12/21/24 14:56) Rash Sulfa (Sulfonamide Antibiotics) Allergy (Intermediate, Verified 12/21/24 14:56) sores in mouth amoxicillin (From Amoxil) Adverse Reaction (Intermediate, Verified 12/21/24 14:56) yeast bladder infections Medications ???Medication ???Instructions ???Recorded ???Confirmed ???Type atorvastatin 10 mg tablet 10 mg PO QHS cholesterol 06/13/20 01/14/25 History diclofenac sodium 1 % topical gel 4 g topical .QID PRN Pain Or Feve r 07/27/21 12/21/24 Rx #100 grams albuterol sulfate 90 mcg/actuation 1 - 2 puff inhalation Q6H PRN 01/14/25 Rx aerosol inhaler (ProAir HFA) shortness of breath or wheezing #8.5 grams ergocalciferol (vitamin D2) 1,250 50,000 unit PO QWEEK supplement 0 01/13/23 01/14/25 Rx mcg (50,000 unit) capsule #20 caps magnesium oxide 400 mg PO DAILY #90 caps 03/18/23 01/14/25 Rx codeine 10 mg-guaifenesin 100 mg/5 See Rx Instructions PO Q6H PRN 0 08/13/24 12/21/24 Rx mL oral liquid cough #120 mL esomeprazole magnesium 40 mg 40 mg PO QDAY gerd #90 caps 01/14/25 Rx capsule,delayed release ipratropium bromide 21 mcg (0.03 2 spray intranasal BID-TID PRN 05/1912/21/24 Rx %) nasal spray postnasal drainage #30 mL acetaminophen 500 mg tablet 1,000 mg PO Q8 PRN 11/08/24 History ciprofloxacin HCl 500 mg tablet 500 mg PO BID #14 tabs 01/14/25 Rx Have you fallen in the past year?: No Nurse's Note: painful urination, back pain, chills. Started last night. Right leg pain, swollen, feeling an indent and red gash on right leg. [facility] Medical History Abnormal bruising Impacted cerumen, left ear Dysuria HLD (hyperlipidemia) Bruises easily History of shingles Vitamin D deficiency Sciatica Lumbar radiculopathy GERD (gastroesophageal reflux disease) Lung cancer Anxiety Surgical History History of total left knee replacement History of bilateral cataract extraction History of lateral meniscus repair of left knee History of cystoscopy history of bunionectomy History of colonoscopy History of lobectomy of lung History of back surgery History of esophagogastroduodenoscopy (EGD) History of section Family History Aunt Colon cancer Diabetes Mother Thyroid disorder Heart disease Son Hypercholesteremia Grandmother Heart disease Father COPD (chronic obstructive pulmonary disease) Social History Smoking Status: Former smoker quit date: 05/26/08 Tobacco: How many years used: 40 alcohol intake: current alcohol intake frequency: holidays/special occasions only substance use type: does not use HPI HPI Chief Complaint: UTI Details: VALERY DEVINE, is a 74 F who presents to the office today for [facility] for less than 24-hour history of dysuria and urinary frequency with suprapubic pressure and low back pain. No complaints of fever, chills, sweats, lightheadedness/dizziness, nausea/vomiting, or chest pain/shortness of breath/dyspnea on exertion/mid-back pain. No changes in color/ character of urine or stool. Additionally, patient notes several week history of open wound to right anterior lower leg with new onset increased tenderness and swelling and warmth with open wound persistently draining scant exudate as she describes. No complaints of fever, chills, sweats as previously stated. No hpwx-uja-ssuegzv medications taken to assist with UTI complaints or right lower extremity complaints. No jual-qkd-mahvcsi products taken to assist. No other associated symptoms and no alleviating/aggravating factors. ROS Const Constitutional: No other (As above) Exam Const General: cooperative, healthy appe (more content not included)... Normal [facility] Urine cultureOrdered By: Iam Kirby on 01-14-2025 Bacteria identified Cx Nom (U) Positive Abnormal [facility] 36on 01-11-2025 36 Called pt back to reschedule. Offered Dr Live, but the times did not work. Offered Dr Wang, and she agreed to afternoon Normal [facility] 36 Patient needs to xavier nge the appt due to her son work schedule and he would be the one bringing her. She said Mondays and work better. But with he see's patients on Fridays. So if you can give the patient a call back [facility] Internal Medicine Office Vis iton 12-21-2024 Internal Medicine Office Visit [facility] [address] [place] [address] [place] [address] OFFICE VISIT Date of Service: 12/21/24 MR#: [id number] Acct: [id number] Name: VALERY DEVINE Zaida Rep #: [id number] : 1950 Provider: TY pleitez Age/Sex: 74/F [place] [facility] [place] Status: Signed Intake Vital Signs 12/12/24 13:12 12/21/24 15:02 Height 5 ft 4 in 5 ft 4 in Weight: 168 lb 6 oz 164 lb BMI 28.9 28.1 BP 124/80 H 98/64 Blood Pressure Location Lt brachial Lt brachial Position Sitting Sitting Respiration 16 16 Pulse 64 81 Pulse Source Monitor Monitor Temp 96.2 F L Temp Source Temporal Pulse Oximetry (%) 99 96 Oxygen Delivery Method room air room air Intake Visit Reasons: POSSIBLE UTI - RT LEG SWOLLEN AND RED Quantitative Developer Required: No Accompanied by: Self Is patient in pain?: No Allergies cephalexin Allergy (Intermediate, Verified 12/21/24 14:56) Rash nitrofurantoin Allergy (Intermediate, Verified 12/21/24 14:56) Rash Sulfa (Sulfonamide Antibiotics) Allergy (Intermediate, Verified 12/21/24 14:56) sores in mouth amoxicillin (From Amoxil) Adverse Reaction (Intermediate, Verified 12/21/24 14:56) yeast bladder infections Medications ???Medication ???Instructions ???Recorded ???Confirmed ???Type atorvastatin 10 mg tablet 10 mg PO QHS cholesterol 06/13/20 12/21/24 History diclofenac sodium 1 % topical gel 4 g topical .QID PRN Pain Or Feve r 07/27/21 12/21/24 Rx #100 grams albuterol sulfate 90 mcg/actuation 1 - 2 puff inhalation Q6H PRN 12/21/24 Rx aerosol inhaler (ProAir HFA) shortness of breath or wheezing #8.5 grams ergocalciferol (vitamin D2) 1,250 50,000 unit PO QWEEK supplement 0 01/13/23 12/21/24 Rx mcg (50,000 unit) capsule #20 caps vibegron 75 mg tablet 75 mg PO DAILY 02/27/23 12/21/24 H istory magnesium oxide 400 mg PO DAILY #90 caps 03/18/23 12/21/24 Rx codeine 10 mg-guaifenesin 100 mg/5 See Rx Instructions PO Q6H PRN 0 08/13/24 12/21/24 Rx mL oral liquid cough #120 mL esomeprazole magnesium 40 mg 40 mg PO QDAY gerd #90 caps 12/21/24 Rx capsule,delayed release ipratropium bromide 21 mcg (0.03 2 spray intranasal BID-TID PRN 05/1912/21/24 Rx %) nasal spray postnasal drainage #30 mL acetaminophen 500 mg tablet 1,000 mg PO Q8 PRN 11/08/24 History Have you fallen in the past year?: No PFSH Medical History Abnormal bruising Impacted cerumen, left ear Dysuria HLD (hyperlipidemia) Bruises easily History of shingles Vitamin D deficiency Sciatica Lumbar radiculopathy GERD (gastroesophageal reflux disease) Lung cancer Anxiety Surgical History History of total left knee replacement History of bilateral cataract extraction History of lateral meniscus repair of left knee History of cystoscopy history of bunionectomy History of colonoscopy History of lobectomy of lung History of back surgery History of esophagogastroduodenoscopy (EGD) History of section Family History Aunt Colon cancer Diabetes Mother Thyroid disorder Heart disease Son Hypercholesteremia Grandmother Heart disease Father COPD (chronic obstructive pulmonary disease) Social History Smoking Status: Former smoker quit date: 05/26/08 Tobacco: How many years used: 40 alcohol intake: current alcohol intake frequency: holidays/special occasions only substance use type: does not use HPI HPI Details: VALERY DEVINE, is a 74 F who presents to the office today for concern of urinary tract infection and right leg wound. Patient states approximately 3 days ago she noticed dysuria. The patient has a prescription from her urologist for doxycycline in case of urinary tract infections which she started at the onset of symptoms. After taking the antibiotic for 2 days she did also noticed some vaginal itching for which she used Monistat but also has a prescription for Diflucan if needed. Patient denies urgency or frequency or any suprapubic pain states she only had pain with urinating. States pain is resolved at this time no fever chills shortness of breath or generalized bodyaches. The antibiotic alleviated the dysuria as well as using [id number] Azo. Patient states positive results from using Monistat cream and decrease in vaginal itching. Patient states that she feels that the urinary tract infection is better however she was concerned about the dose of the antibiotic and wanted to be sure that it was an appropriate dose to treat her urinary tract infection. Patient also with a right lower extremity wound. Patient fell approximately 2 weeks ago she was stand (more content not included)... Normal [facility] Orthopedic Visit Reporton Orthopedic Visit Report [facility] [address] [place] [address] OFFICE VISIT Date of Service: 12/14/24 MR#: [id number] Acct: [id number] Name: VALERY DEVINE Rep #: [id number] : 1950 Provider: TY saldaña Age/Sex: 74/F [place] [facility] [place]: Signed Intake Vital Signs 3 12/12/24 13:12 Height 5 ft 4 in Intake Visit Reasons: RIGHT ANKLE Chief Complaint: Right Ankle, Lower Leg and Knee Accompanied by: Self Is patient in pain?: Yes Pain scale (1-10): 5 Allergies cephalexin Allergy (Intermediate, Verified 12/14/24 13:42) Rash nitrofurantoin Allergy (Intermediate, Verified 12/14/24 13:42) Rash Sulfa (Sulfonamide Antibiotics) Allergy (Intermediate, Verified 12/14/24 13:42) sores in mouth amoxicillin (From Amoxil) Adverse Reaction (Intermediate, Verified 12/14/24 13:42) yeast bladder infections Medications 3 ???Medication ???Instructions ???Recorded ???Confirmed ???Type atorvastatin 10 mg tablet 10 mg PO QHS cholesterol 06/13/20 12/14/24 History diclofenac sodium 1 % topical gel 4 g topical .QID PRN Pain Or Feve r 07/27/21 12/14/24 Rx #100 grams albuterol sulfate 90 mcg/actuation 1 - 2 puff inhalation Q6H PRN 12/14/24 Rx aerosol inhaler (ProAir HFA) shortness of breath or wheezing #8.5 grams ergocalciferol (vitamin D2) 1,250 50,000 unit PO QWEEK supplement 0 01/13/23 12/14/24 Rx mcg (50,000 unit) capsule #20 caps vibegron 75 mg tablet 75 mg PO DAILY 02/27/23 12/14/24 H istory magnesium oxide 400 mg PO DAILY #90 caps 03/18/23 12/14/24 Rx codeine 10 mg-guaifenesin 100 mg/5 See Rx Instructions PO Q6H PRN 0 08/13/24 12/14/24 Rx mL oral liquid cough #120 mL esomeprazole magnesium 40 mg 40 mg PO QDAY gerd #90 caps 12/14/24 Rx capsule,delayed release ipratropium bromide 21 mcg (0.03 2 spray intranasal BID-TID PRN 05/1912/14/24 Rx %) nasal spray postnasal drainage #30 mL acetaminophen 500 mg tablet 1,000 mg PO Q8 PRN 11/08/24 History Have you fallen in the past year?: Yes PFSH Medical History Abnormal bruising Impacted cerumen, left ear Dysuria HLD (hyperlipidemia) Bruises easily History of shingles Vitamin D deficiency Sciatica Lumbar radiculopathy GERD (gastroesophageal reflux disease) Lung cancer Anxiety Surgical History History of total left knee replacement History of bilateral cataract extraction History of lateral meniscus repair of left knee History of cystoscopy history of bunionectomy History of colonoscopy History of lobectomy of lung History of back surgery History of esophagogastroduodenoscopy (EGD) History of section Family History Aunt Colon cancer Diabetes Mother Thyroid disorder Heart disease Son Hypercholesteremia Grandmother Heart disease Father COPD (chronic obstructive pulmonary disease) Social History Smoking Status: Former smoker quit date: 05/26/08 Tobacco: How many years used: 40 alcohol intake: current alcohol intake frequency: holidays/special occasions only substance use type: does not use HPI RIGHT ANKLE Details: This documentation accurately reflects the service provided and the decisions made by me, Carolyn Tadeo, DIRECTOR OF ALUMNI RELATIONS-C 12/14/24 0556. Part of today???s visit was documented by Malka Mccray ATC, acting as scribe. VALERY DEVINE is a 74 year old F here today for right ankle and lower leg. Patient states she has been having swelling and bruising from the lower leg up to the knee. She had a fall on 12/07/2024 and she cut the leg on the step stool. She has had knee and tib/fib x-rays and they did not find any fractures. She states she had blood work done for congestive heart failure and checked her kidneys and they all came back clear. She describes the pain in the anterior medial aspect of the knee. She does have a wrap around the lower 1/4 of the lower leg. She denies any mechanical symptoms in the knee. She just recently finished Euflexxa injections with Dr. Izaguirre and did not get any relief from those. Agree with above. Patient describes the fall occurred in her closet while she was reaching for something, slipped off a stepstool and it struck the right lower leg resulting in skin tears and bruising. Has been to urgent care x 2 with concern for wound healing. Has been using antibacterial soap and water and dressings as needed. Has not attempted any wraps or compression. 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 Swelling and d (more content not included)... Normal [facility] Anion gap in Serum or Plasma Ordered By: Isauro Barragan on 12-13-2024 Anion gap [Moles/Vol] 11 mmol/L 5-15 [facility] BUN/creatinine ratioOrdered By: Isauro Barragan on 12-13-2024 Urea nitrogen/Creatinine [Mass ratio] 31.8 mg/mg High 03-14 [facility] Basic Metabolic Profile (BMP )on 12-13-2024 BUN/CRE 31.8 RATIO High 03-14 [facility] Comment on above: Performed By: #### L 500.2500, L503.7505 #### [facility] [address] [place], [address] Calcium [Mass/Vol] 9.2 mg/dL Normal 7.6-11.0 [facility] Comment on above: Performed By: #### L 500.2500, L503.7505 #### [facility] [address] [place], [address] Chloride [Moles/Vol] 111 mmol/L High 98-108 [facility] Comment on above: Performed By: #### L 500.2500, L503.7505 #### [facility] [address] [place], [address] CO2 [Moles/Vol] 22.9 mmol/L Normal 21.0-32.0 [facility] Comment on above: Performed By: #### L 500.2500, L503.7505 #### [facility] [address] [place], [address] Creatinine [Mass/Vol] 0.64 mg/dL Low 0.70-1.20 [facility] Comment on above: Performed By: #### L 500.2500, L503.7505 #### [facility] [address] [place], [address] GAP 11 Normal 5-15 [facility] Comment on above: Performed By: #### L 500.2500, L503.7505 #### [facility] [address] [place], [address] GFR/1.73 sq M.predicted among non-blacks MDRD (S/P/Bld) [Vol rate/Area] 93 mL/min/{1.73_m2} Normal >60 [facility] Comment on above: Result Comment: mL/m in/1.73m2 CKD-EPI Creatinine Equation (2020) Performed By: #### L 500.2500, L503.7505 #### [facility] [address] [place], [address] Glucose [Mass/Vol] 102 mg/dL High 70-99 [facility] Comment on above: Performed By: #### L 500.2500, L503.7505 #### [facility] [address] [place], [address] Potassium [Moles/Vol] 3.9 mmol/L Normal 3.3-5.1 [facility] Comment on above: Performed By: #### L 500.2500, L503.7505 #### [facility] [address] [place], [address] Sodium [Moles/Vol] 144 mmol/L Normal 133-145 [facility] Comment on above: Performed By: #### L 500.2500, L503.7505 #### [facility] [address] [place], [address] Urea nitrogen [Mass/Vol] 20 mg/dL High 4-19 [facility] Comment on above: Performed By: #### L 500.2500, L503.7505 #### [facility] [address] [place], [address] Carbon dioxide, total [Moles /volume] in Central venous bloodOrdered By: Isauro aBrragan on 12-13-2024 CO2 [Moles/Vol] 22.9 mmol/L 21.0-32.0 [facility] Chloride assayOrdered By: Vicky Barragan on 12-13-2024 Chloride [Moles/Vol] 111 mmol/L High 98-108 [facility] Glomerular filtration rate ( GFR) estimation/1.73 sq m using serum, plasma, or whole bOrdered By: Isauro Barragan on 12-13-2024 GFR/1.73 sq M.predicted among non-blacks MDRD (S/P/Bld) [Vol rate/Area] 93 mL/min/{1.73_m2} >60 [facility] Comment on above: mL/min/1.73m2 CKD-EP I Creatinine Equation (2020) L503.7505on 12-13-2024 Natriuretic peptide B (Bld) [Mass/Vol] 90 pg/mL Normal <=900 [facility] Comment on above: Result Comment: Hear t Failure Unlikely: < 300 pg/mL Heart Failure Likely < 50 Years: > 450 pg/mL 50-75 Years: > 900 pg/mL >75 Years: > 1800 pg/mL Performed By: #### L 500.2500, L503.7505 #### [facility] [address] [place], [place], [id number] Natriuretic peptide.B prohor dada N-Terminal [Mass/volume] in Serum or PlasmaOrdered By: Isauro Barragan on 12-13-2024 Natriuretic peptide.B prohormone N-Terminal [Mass/Vol] 90 pg/mL <900 [facility] Comment on above: Heart Failure Unlike ly: < 300 pg/mLHeart Failure Likely< 50 Years: > 450 pg/mL50-75 Years: > 900 pg/mL>75 Years: > 1800 pg/mL Potassium measurement (mass/ volume)Ordered By: Isauro Barragan on 12-13-2024 Potassium (Unsp spec) [Mass/Vol] 3.9 mmol/L 3.3-5.1 [facility] Serum creatinine measurement (mass/volume)Ordered By: Isauro Barragan on 12-13-2024 Creatinine [Mass/Vol] 0.64 mg/dL Low 0.70-1.20 [facility] Serum glucose measurement (m ass/volume)Ordered By: Isauro Barragan on 12-13-2024 Glucose [Mass/Vol] 102 mg/dL High 70-99 [facility] Serum or plasma calcium gisel urement (mass/volume)Ordered By: Isauro Barragan on 12-13-2024 Calcium [Mass/Vol] 9.2 mg/dL 7.6-11.0 [facility] Serum or plasma urea nitroge n measurement (mass/volume)Ordered By: Isauro Barragan on 12-13-2024 Urea nitrogen [Mass/Vol] 20 mg/dL High 4-19 [facility] Sodium levelOrdered By: Isauro Barragan on 12-13-2024 Sodium [Moles/Vol] 144 mmol/L 133-145 [facility] Urgent Care Visit Reporton 0 12-12-2024 Urgent Care Visit Report [facility] [address] , [address] [place] [id number] OFFICE VISIT Date of Service: 12/12/24 MR#: [id number] Acct: [id number] Name: VALERY DEVINE Zaida Rep #: [id number] : 1950 Provider: TY naranjo Age/Sex: 74/F [place] [facility] [facility] [place] Status: Signed Intake Vital Signs 11/15/24 12:01 12/12/24 13:12 Height 5 ft 4 in 5 ft 4 in Weight: 168 lb 6 oz BMI 28.9 BP 124/80 H Blood Pressure Location Lt brachial Position Sitting Respiration 16 Pulse 64 Pulse Source Monitor Pulse Oximetry (%) 99 Oxygen Delivery Method room air Intake Visit Reasons: R L INJURY Chief Complaint: Right leg injury Is patient in pain?: Yes (Right leg from injury ) Allergies cephalexin Allergy (Intermediate, Verified 12/07/24 13:49) Rash nitrofurantoin Allergy (Intermediate, Verified 12/07/24 13:49) Rash Sulfa (Sulfonamide Antibiotics) Allergy (Intermediate, Verified 12/07/24 13:49) sores in mouth amoxicillin (From Amoxil) Adverse Reaction (Intermediate, Verified 12/07/24 13:49) yeast bladder infections Medications ???Medication ???Instructions ???Recorded ???Confirmed ???Type atorvastatin 10 mg tablet 10 mg PO QHS cholesterol 06/13/20 12/12/24 History diclofenac sodium 1 % topical gel 4 g topical .QID PRN Pain Or Feve r 07/27/21 12/12/24 Rx #100 grams albuterol sulfate 90 mcg/actuation 1 - 2 puff inhalation Q6H PRN 12/12/24 Rx aerosol inhaler (ProAir HFA) shortness of breath or wheezing #8.5 grams ergocalciferol (vitamin D2) 1,250 50,000 unit PO QWEEK supplement 0 01/13/23 12/12/24 Rx mcg (50,000 unit) capsule #20 caps vibegron 75 mg tablet 75 mg PO DAILY 02/27/23 12/12/24 H istory magnesium oxide 400 mg PO DAILY #90 caps 03/18/23 12/12/24 Rx codeine 10 mg-guaifenesin 100 mg/5 See Rx Instructions PO Q6H PRN 0 08/13/24 12/12/24 Rx mL oral liquid cough #120 mL esomeprazole magnesium 40 mg 40 mg PO QDAY gerd #90 caps 12/12/24 Rx capsule,delayed release ipratropium bromide 21 mcg (0.03 2 spray intranasal BID-TID PRN 05/1912/12/24 Rx %) nasal spray postnasal drainage #30 mL acetaminophen 500 mg tablet 1,000 mg PO Q8 PRN 11/08/24 History Have you fallen in the past year?: Yes PFSH Medical History Abnormal bruising Impacted cerumen, left ear Dysuria HLD (hyperlipidemia) Bruises easily History of shingles Vitamin D deficiency Sciatica Lumbar radiculopathy GERD (gastroesophageal reflux disease) Lung cancer Anxiety Surgical History History of total left knee replacement History of bilateral cataract extraction History of lateral meniscus repair of left knee History of cystoscopy history of bunionectomy History of colonoscopy History of lobectomy of lung History of back surgery History of esophagogastroduodenoscopy (EGD) History of section Family History Aunt Colon cancer Diabetes Mother Thyroid disorder Heart disease Son Hypercholesteremia Grandmother Heart disease Father COPD (chronic obstructive pulmonary disease) Social History Smoking Status: Former smoker quit date: 05/26/08 Tobacco: How many years used: 40 alcohol intake: current alcohol intake frequency: holidays/special occasions only substance use type: does not use HPI HPI Chief Complaint: Right leg injury Details: VALERY DEVINE, is a 74 F who presents to the office today for swelling concerns. She was seen in clinic on 12/07/2024 for this injury. Skin tear and signs of infection reviewed with her and conservative [id number] treatment recommended. ROS Const Constitutional: No body ache, chills, fatigue, fever(s), headache(s) or change in appetite Eyes Eyes: No blurry vision, change in vision, double vision, irritation, discharge, vision loss, dry eyes, bulging eyes, floaters, visual disturbances, eye pain, Light sensitivity, spots in vision, tunnel vision or other ENT ENT: No ear or mastoid pain, ear discharge, ear pressure, tinnitus, dizziness/vertigo, nosebleed/epistaxis, nasal congestion, nose pain, sinus pressure, sinus pain, nasal discharge, post nasal drip, headache(s), facial pain, dental pain, difficulty swallowing, bad breath, hoarseness, lip swelling, mouth lesions, mouth pain, neck pain, sore throat, tongue swelling or throat swelling Resp Respiratory: No cough, change in phlegm color, chest congestion, hemoptysis, pain on inspiration, shortness of breath, pain with cough, stridor or wheezing Cardio Cardiology: No chest pain at rest, chest pain with exertion, shortness of breath, dyspnea on exertion or lighthe (more content not included)... Normal [facility] Knee 3 Viewson 12-07-2024 Knee 3 Views [facility] [address] [place], [place] [id number] Knee 3 Views MR#: [id number] Acct: [id number] Name: VALERY DEVINE Rep #: [id number] : 1950 F 74 From: Jovany Goodwin MD PCP: Dr. Bean Bettencourt DO Status: REG CLI Study: Knee 3 Views Date of Exam: 12/07/24 Exam# [id number] Ordering Dr: Mark Kirby EXAM: XR Right Knee, 3 Views CLINICAL INDICATION: PAIN TECHNIQUE: Three views of the right knee. COMPARISON: No relevant prior studies available. FINDINGS: BONES/JOINTS: Moderate degenerative changes of the medial compartment of the knee joint. No acute fracture. No dislocation. SOFT TISSUES: Unremarkable. RAD/Knee 3 Views IMPRESSION: Degenerative changes as above. Reading Location: [facility] CC: Dr. Bean Bettencourt DO; JEY Jimenez Manager Recruiting: Signed Normal [facility] Tibia Fibula 2 Viewson 12-07 Tibia Fibula 2 Views [facility] [address] [place], [place] [address] Tibia Fibula 2 Views MR#: [id number] Acct: [id number] Name: VALERY DEVINE Rep #: [id number] : 1950 F 74 From: Jovany Goodwin MD PCP: Dr. Bean Bettencourt, Status: REG CLI Study: Tibia Fibula 2 Views Date of Exam: 12/07/24 Exam# [id number] Ordering Dr: Mark Kirby EXAM: XR Right Tibia and Fibula, 2 Views CLINICAL INDICATION: PAIN TECHNIQUE: Frontal and lateral views of the right tibia and fibula. COMPARISON: No relevant prior studies available. FINDINGS: BONES/JOINTS: Unremarkable. No acute fracture. No dislocation. SOFT TISSUES: Unremarkable. No radiopaque foreign body. RAD/Tibia Fibula 2 Views IMPRESSION: No acute fracture. Reading Location: [facility] CC: Dr. Bean Bettencourt DO; JEY Jimenez Manager Recruiting: Signed Normal [facility] Urgent Care Visit Reporton 0 12-07-2024 Urgent Care Visit Report [facility] [address], [address] [place] [address] OFFICE VISIT Date of Service: 12/07/24 MR#: [id number] Acct: [id number] Name: VALERY DEVINE Rep #: [id number] : 1950 Provider: JEY Jimenez Age/Sex: 74/F [place] [facility] [place] Status: Signed Intake Vital Signs 11/15/24 12:01 12/07/24 13:51 Height 5 ft 4 in BP 120/70 Position Sitting Respiration 18 Pulse 86 Temp 97.5 F L Temp Source Oral Pulse Oximetry (%) 96 Oxygen Delivery Method room air Intake Visit Reasons: R LEG PAIN FROM FALL Chief Complaint: Right leg pain Accompanied by: Self Allergies cephalexin Allergy (Intermediate, Verified 12/07/24 13:49) Rash nitrofurantoin Allergy (Intermediate, Verified 12/07/24 13:49) Rash Sulfa (Sulfonamide Antibiotics) Allergy (Intermediate, Verified 12/07/24 13:49) sores in mouth amoxicillin (From Amoxil) Adverse Reaction (Intermediate, Verified 12/07/24 13:49) yeast bladder infections Medications ???Medication ???Instructions ???Recorded ???Confirmed ???Type atorvastatin 10 mg tablet 10 mg PO QHS cholesterol 06/13/20 12/07/24 History diclofenac sodium 1 % topical gel 4 g topical .QID PRN Pain Or Feve r 07/27/21 12/07/24 Rx #100 grams albuterol sulfate 90 mcg/actuation 1 - 2 puff inhalation Q6H PRN 12/07/24 Rx aerosol inhaler (ProAir HFA) shortness of breath or wheezing #8.5 grams ergocalciferol (vitamin D2) 1,250 50,000 unit PO QWEEK supplement 0 01/13/23 12/07/24 Rx mcg (50,000 unit) capsule #20 caps vibegron 75 mg tablet 75 mg PO DAILY 02/27/23 12/07/24 H istory magnesium oxide 400 mg PO DAILY #90 caps 03/18/23 12/07/24 Rx codeine 10 mg-guaifenesin 100 mg/5 See Rx Instructions PO Q6H PRN 0 08/13/24 12/07/24 Rx mL oral liquid cough #120 mL esomeprazole magnesium 40 mg 40 mg PO QDAY gerd #90 caps 12/07/24 Rx capsule,delayed release ipratropium bromide 21 mcg (0.03 2 spray intranasal BID-TID PRN 05/1912/07/24 Rx %) nasal spray postnasal drainage #30 mL acetaminophen 500 mg tablet 1,000 mg PO Q8 PRN 11/08/24 History Have you fallen in the past year?: Yes Nurse's Note: Patient had a fall this morning. Patient was on a step stool and fell side ways and she cut her leg on something. Patient had a scope down this morning and the office wrapped it. Patient leg is swollen and painful. [facility] Medical History Abnormal bruising Impacted cerumen, left ear Dysuria HLD (hyperlipidemia) Bruises easily History of shingles Vitamin D deficiency Sciatica Lumbar radiculopathy GERD (gastroesophageal reflux disease) Lung cancer Anxiety Surgical History History of total left knee replacement History of bilateral cataract extraction History of lateral meniscus repair of left knee History of cystoscopy history of bunionectomy History of colonoscopy History of lobectomy of lung History of back surgery History of esophagogastroduodenoscopy (EGD) History of section Family History Aunt Colon cancer Diabetes Mother Thyroid disorder Heart disease Son Hypercholesteremia Grandmother Heart disease Father COPD (chronic obstructive pulmonary disease) Social History Smoking Status: Former smoker quit date: 05/26/08 Tobacco: How many years used: 40 alcohol intake: current alcohol intake frequency: holidays/special occasions only substance use type: does not use HPI HPI Chief Complaint: Right leg pain Details: VALERY DEVINE, is a 74 F who presents to the office today for History of Present Illness The patient is a 74-year-old female presenting with a fall from a step stool resulting in skin tears. The incident occurred while she was attempting to retrieve a file box, leading to an unbalanced step stool and subsequent fall. She sustained skin tears but no fractures were noted on x-rays of the knee and lower leg. The patient has a history of a hiatal hernia, for which she has undergone a laryngoscopy due to associated pain. She has been advised to undergo surgery for the hernia. The patient is active, engaging in activities such as pickleball and swimming several times a week. She denies any significant limitations in mobility following the fall. Attestation: Documentation on this patient encounter was supported using ambient scribe technology/ voice AI technology. The patient consented to recording for the purpose of documenting the encounter. Provider reviewed content of the generated note prior to signature. Review of Systems - Musculoskeletal: Reports fall resulting in skin (more content not included)... Normal [facility] Rapid group A Streptococcus antigen assay at point of careOrdered By: Mark Kirby on 12-01-2024 S. pyogenes Ag IA.rapid Ql (Throat) Negative [facility] Urgent Care Visit Reporton 0 12-01-2024 Urgent Care Visit Report [facility] [address], [address] [place] [address] OFFICE VISIT Date of Service: 12/01/24 MR#: [id number] Acct: [id number] Name: SYBILVALERY A Rep #: [id number] : 1950 Provider: JEY Jimenez Age/Sex: 74/F [place] [facility] [place] Status: Signed Intake Vital Signs 11/15/24 12:01 12/01/24 10:44 Height 5 ft 4 in Weight: 163 lb BMI 27.9 BP 112/75 102/68 Blood Pressure Location Lt brachial Position Sitting Sitting Respiration 16 16 Pulse 76 60 Pulse Source Monitor Temp 97.1 F L 98.6 F Temp Source Oral Pulse Oximetry (%) 95 97 Oxygen Delivery Method room air room air Intake Visit Reasons: SORE THROAT Chief Complaint: sore throat Accompanied by: Self Allergies cephalexin Allergy (Intermediate, Verified 12/01/24 10:52) Rash nitrofurantoin Allergy (Intermediate, Verified 12/01/24 10:52) Rash Sulfa (Sulfonamide Antibiotics) Allergy (Intermediate, Verified 12/01/24 10:52) sores in mouth amoxicillin (From Amoxil) Adverse Reaction (Intermediate, Verified 12/01/24 10:52) yeast bladder infections Medications ???Medication ???Instructions ???Recorded ???Confirmed ???Type atorvastatin 10 mg tablet 10 mg PO QHS cholesterol 06/13/20 12/01/24 History diclofenac sodium 1 % topical gel 4 g topical .QID PRN Pain Or Feve r 07/27/21 12/01/24 Rx #100 grams albuterol sulfate 90 mcg/actuation 1 - 2 puff inhalation Q6H PRN 12/01/24 Rx aerosol inhaler (ProAir HFA) shortness of breath or wheezing #8.5 grams ergocalciferol (vitamin D2) 1,250 50,000 unit PO QWEEK supplement 0 01/13/23 12/01/24 Rx mcg (50,000 unit) capsule #20 caps vibegron 75 mg tablet 75 mg PO DAILY 02/27/23 12/01/24 H istory magnesium oxide 400 mg PO DAILY #90 caps 03/18/23 12/01/24 Rx codeine 10 mg-guaifenesin 100 mg/5 See Rx Instructions PO Q6H PRN 0 08/13/24 12/01/24 Rx mL oral liquid cough #120 mL esomeprazole magnesium 40 mg 40 mg PO QDAY gerd #90 caps 12/01/24 Rx capsule,delayed release ipratropium bromide 21 mcg (0.03 2 spray intranasal BID-TID PRN 05/1912/01/24 Rx %) nasal spray postnasal drainage #30 mL acetaminophen 500 mg tablet 1,000 mg PO Q8 PRN 11/08/24 History Have you fallen in the past year?: No Nurse's Note: Patient here for Sore throat. Patient feels like this has been going on forever. Patient was here on 11/04 and we did a strep test and it was negative. Patient is worried about thrush, she states her back of her throat kelley. [facility] Medical History Abnormal bruising Impacted cerumen, left ear Dysuria HLD (hyperlipidemia) Bruises easily History of shingles Vitamin D deficiency Sciatica Lumbar radiculopathy GERD (gastroesophageal reflux disease) Lung cancer Anxiety Surgical History History of total left knee replacement History of bilateral cataract extraction History of lateral meniscus repair of left knee History of cystoscopy history of bunionectomy History of colonoscopy History of lobectomy of lung History of back surgery History of esophagogastroduodenoscopy (EGD) History of section Family History Aunt Colon cancer Diabetes Mother Thyroid disorder Heart disease Son Hypercholesteremia Grandmother Heart disease Father COPD (chronic obstructive pulmonary disease) Social History Smoking Status: Former smoker quit date: 05/26/08 Tobacco: How many years used: 40 alcohol intake: current alcohol intake frequency: holidays/special occasions only substance use type: does not use HPI HPI Chief Complaint: sore throat Details: VALERY DEVINE, is a 74 F who presents to the office today for initial evaluation at the [facility] for approximately 1-month history of persistent irritated/ sore throat without swollen tender cervical lymph nodes in front of neck along w/ left ear, plugged feeling. She notes no complaints of fever, chills, sweats, cough,, lightheadedness/dizziness, nausea/vomiting.. Painful swallowing appreciated though no difficulty swallowing/drooling. No rash. No complaints of chest pressure/shortness of breath/dyspnea on exertion. No close contacts with similar complaints. ???No mzuk-nnt-htrnome products taken to assist. No other associated symptoms and no other alleviating/aggravating factors. ROS Const Constitutional: No other (As above) Exam Const General: cooperative, healthy appearing and no acute distress Orientation: alert, awake and oriented x3 HENMT Head: normal to inspection Ears: hearing grossly normal bilaterally, external ears normal, TM's normal (more content not included)... Normal [facility] Oncology Visit Reporton 10-25 Oncology Visit Report [facility] [place] [address] OFFICE VISIT Date of Service: 11/15/24 1158 MR#: [id number] Acct: [id number] Name: VALERY DEVINE Rep #: [id number] : 1950 From: Luz Elena aHtch MD Age/Sex: 74/F [place] [facility] [facility] [place] Status: Signed HPI Subjective Date of Service 11/15/24 Chief Complaint Bruises History of Present Illness 74-year-old female with progressively increasing easy bruising on the extremities over the course of the past few years. She is unaware of any other external bleeding and has had no excessive bleeding with prior surgical procedures. She is not on any blood thinning or antiplatelet agents. She enjoys swimming and staying in the sun. [facility] Medical History Abnormal bruising Impacted cerumen, left ear Dysuria HLD (hyperlipidemia) Bruises easily History of shingles Vitamin D deficiency Sciatica Lumbar radiculopathy GERD (gastroesophageal reflux disease) Lung cancer Anxiety Surgical History History of total left knee replacement History of bilateral cataract extraction History of lateral meniscus repair of left knee History of cystoscopy history of bunionectomy History of colonoscopy History of lobectomy of lung History of back surgery History of esophagogastroduodenoscopy (EGD) History of section Family History Aunt Colon cancer Diabetes Mother Thyroid disorder Heart disease Son Hypercholesteremia Grandmother Heart disease Father COPD (chronic obstructive pulmonary disease) Social History Smoking Status: Former smoker quit date: 05/26/08 Tobacco: How many years used: 40 alcohol intake: current alcohol intake frequency: holidays/special occasions only substance use type: does not use ROS ROS Narrative See note of November 08, 2024 no change Intake Vital Signs 11/08/24 15:14 11/15/24 11:58 11/15/24 12:01 Height 5 ft 4 in 5 ft 4 in 5 ft 4 in Weight: 73.482 kg 73.936 kg BMI 27.8 27.9 BP 102/69 112/75 Blood Pressure Location Rt brachial Lt brachial Position Sitting Sitting Respiration 16 16 Pulse 84 76 Pulse Source Monitor Monitor Temp 97.9 F 97.1 F L Temperature Source Temporal Artery Temporal Artery Pulse Oximetry (%) 95 95 Oxygen Delivery Method room air room air Intake Is patient in pain?: No Allergies cephalexin Allergy (Intermediate, Verified 11/15/24 12:00) Rash nitrofurantoin Allergy (Intermediate, Verified 11/15/24 12:00) Rash Sulfa (Sulfonamide Antibiotics) Allergy (Intermediate, Verified 11/15/24 12:00) sores in mouth amoxicillin (From Amoxil) Adverse Reaction (Intermediate, Verified 11/15/24 12:00) yeast bladder infections Medications ???Medication ???Instructions ???Recorded ???Confirmed ???Type atorvastatin 10 mg tablet 10 mg PO QHS cholesterol 06/13/20 11/15/24 History diclofenac sodium 1 % topical gel 4 g topical .QID PRN Pain Or Feve r 07/27/21 11/15/24 Rx #100 grams albuterol sulfate 90 mcg/actuation 1 - 2 puff inhalation Q6H PRN 11/15/24 Rx aerosol inhaler (ProAir HFA) shortness of breath or wheezing #8.5 grams ergocalciferol (vitamin D2) 1,250 50,000 unit PO QWEEK supplement 0 01/13/23 11/15/24 Rx mcg (50,000 unit) capsule #20 caps vibegron 75 mg tablet 75 mg PO DAILY 02/27/23 11/15/24 H istory magnesium oxide 400 mg PO DAILY #90 caps 03/18/23 11/15/24 Rx codeine 10 mg-guaifenesin 100 mg/5 See Rx Instructions PO Q6H PRN 0 08/13/24 11/15/24 Rx mL oral liquid cough #120 mL esomeprazole magnesium 40 mg 40 mg PO QDAY gerd #90 caps 11/15/24 Rx capsule,delayed release ipratropium bromide 21 mcg (0.03 2 spray intranasal BID-TID PRN 05/1911/15/24 Rx %) nasal spray postnasal drainage #30 mL acetaminophen 500 mg tablet 1,000 mg PO Q8 PRN 11/08/24 History Have you fallen in the past year?: No Central Venous Access Central Venous Access: No Laboratory Tests 08/01/22 08/02/22 02/27/23 14:31 00:58 16:00 Plt Count 206 219 PT 12.8 12.8 13.4 APTT 29.0 08/15/23 08/22/24 11/08/24 08:19 09:20 15:37 Plt Count 234 200 245 PT 12.9 APTT 25.5 Exam Physical Exam Narrative See note of November 08, 2024 Coding Level of Care Code Off vis,est,level 3 Exam Problem Focused Diagnoses Abnormal bruising R23.3 Assessment and Plan Assessment and Plan (1) Abnormal bruising: Status: Chronic Plan 74-year-old female with increased bruising, chronic, years, extremities but not trunk. No past or family history of bleeding disorder. She is not on any blood (more content not included)... Normal [facility] Absolute lymphocyte countOrd ered By: [facility] on 11-08-2024 Lymphocytes Auto (Unsp spec) [#/Vol] 1.77 10*3/uL 0.83-4.51 [facility] Absolute neutrophil countOrd ered By: [facility] on 11-08-2024 Neutrophils (Bld) [#/Vol] 5.8 10*3/uL 2.0-7.7 [facility] Activated partial thrombopla stin time (aPTT) in platelet poor plasma by coagulation aOrdered By: [facility] on 11-08-2024 aPTT Coag (PPP) [Time] 25.5 s 24.1-36.2 [facility] Automated lymphocyte count a s percentage of total leukocytesOrdered By: [facility] on 11-08-2024 Lymphocytes/100 WBC Auto (Unsp spec) 21.7 % 19-41 [facility] Basophil percentageOrdered B y: [facility] 11-08-2024 Basophils/100 WBC (Bld) 0.4 % 0-1 [facility] CBC W/Diff, Automatedon 10-24 Absolute Lymph 1.77 X10 3/uL Normal 0.83-4.51 [facility] Comment on above: Performed By: #### L 100.0100, L300.4310, L300.3900 ####[facility] [address] [place], [address] Absolute Neut 5.8 X10 3/uL Normal 2.0-7.7 [facility] Comment on above: Performed By: #### L 100.0100, L300.4310, L300.3900 ####[facility] [address] [place], [address] Basophils/100 WBC (Bld) 0.4 % Normal 0-1 [facility] Comment on above: Performed By: #### L 100.0100, L300.4310, L300.3900 ####[facility] [address] [place], [address] Eosinophils/100 WBC (Bld) 0.4 % Normal 0-5 [facility] Comment on above: Performed By: #### L 100.0100, L300.4310, L300.3900 ####[facility] [address] [place], [address] Erythrocyte distribution width (RBC) [Ratio] 14.8 % High 11.6-14.6 [facility] Comment on above: Performed By: #### L 100.0100, L300.4310, L300.3900 ####[facility] [address] [place], [address] Hematocrit (Bld) [Volume fraction] 39.8 % Normal 37-47 [facility] Comment on above: Performed By: #### L 100.0100, L300.4310, L300.3900 ####[facility] [address] [place], [address] Hemoglobin (Bld) [Mass/Vol] 13.0 g/dL Normal 12.0-15.0 [facility] Comment on above: Performed By: #### L 100.0100, L300.4310, L300.3900 ####[facility] [address] [place], [address] IG% 0.400 Normal 0.0-0.9 [facility] Comment on above: Result Comment: IG% - Immature Granulocytes (promyelocytes, myelocytes and metamyelocytes) > 1% indicates that a LEFT SHIFT is Present. Performed By: #### L 100.0100, L300.4310, L300.3900 ####[facility] [address] [place], [address] Lymphocytes/100 WBC (Bld) 21.7 % Normal 19-41 [facility] Comment on above: Performed By: #### L 100.0100, L300.4310, L300.3900 ####[facility] [address] [place], [address] MCH (RBC) [Entitic mass] 29.3 pg Normal 27.0-32.0 [facility] Comment on above: Performed By: #### L 100.0100, L300.4310, L300.3900 ####[facility] [address] [place], [address] MCHC (RBC) [Mass/Vol] 32.7 g/dL Normal 32-36 [facility] Comment on above: Performed By: #### L 100.0100, L300.4310, L300.3900 ####[facility] [address] [place], [address] MCV (RBC) [Entitic vol] 89.6 fL Normal 81-99 [facility] Comment on above: Performed By: #### L 100.0100, L300.4310, L300.3900 ####[facility] [address] [place], [address] Monocytes/100 WBC (Bld) 6.0 % Normal 0-10 [facility] Comment on above: Performed By: #### L 100.0100, L300.4310, L300.3900 ####[facility] [address] [place], [address] Neutrophils/100 WBC (Bld) 71.1 % High 47-70 [facility] Comment on above: Performed By: #### L 100.0100, L300.4310, L300.3900 ####[facility] [address] [place], [address] Nucleated RBC (Bld) [#/Vol] 0 10*3/uL Normal 0-5 [facility] Comment on above: Performed By: #### L 100.0100, L300.4310, L300.3900 ####[facility] [address] [place], [address] Platelet mean volume (Bld) [Entitic vol] 10.3 fL Normal 6.2-12.0 [facility] Comment on above: Performed By: #### L 100.0100, L300.4310, L300.3900 ####[facility] [address] [place], [address] Platelets (Bld) [#/Vol] 245 10*3/uL Normal 150-450 [facility] Comment on above: Performed By: #### L 100.0100, L300.4310, L300.3900 ####[facility] [address] [place], [address] RBC (Bld) [#/Vol] 4.44 10*6/uL Normal 4.2-5.4 [facility] Comment on above: Performed By: #### L 100.0100, L300.4310, L300.3900 ####[facility] [address] [place], [address] RDW SD 48.9 fl High 35.1-43.9 [facility] Comment on above: Performed By: #### L 100.0100, L300.4310, L300.3900 ####[facility] [address] [place], [address] WBC (Bld) [#/Vol] 8.1 10*3/uL Normal 4.4-11.0 [facility] Comment on above: Performed By: #### L 100.0100, L300.4310, L300.3900 ####[facility] [address] [place], [address] Eosinophil percentageOrdered By: [facility] on 11-08-2024 Eosinophils/100 WBC (Bld) 0.4 % 0-5 [facility] Erythrocyte distribution wid th ratioOrdered By: [facility] Holden on 11-08-2024 Erythrocyte distribution width (RBC) [Ratio] 14.8 % High 11.6-14.6 [facility] Erythrocyte distribution wid th standard deviationOrdered By: [facility] Holden on 11-08-2024 Erythrocyte distribution width (RBC) [Ratio] 48.9 fl High 35.1-43.9 [facility] Hematocrit Auto (Bld) [Volum e fraction]Ordered By: [facility] Holden on 11-08-2024 Hematocrit (Bld) [Volume fraction] 39.8 % 37-47 [facility] Hemoglobin measurementOrdere d By: [facility] on 11-08-2024 Hemoglobin (Bld) [Mass/Vol] 13.0 g/dL 12.0-15.0 [facility] Immature granulocytes/100 WB C Auto (Bld)Ordered By: [facility] on 11-08-2024 Immature granulocytes/100 WBC (Bld) 0.400 % 0.0-0.9 [facility] Comment on above: IG% - Immature Granu locytes (promyelocytes, myelocytes and metamyelocytes) > 1% indicates that a LEFT SHIFT is Present. International normalized rat io (INR) calculationOrdered By: Luz Elena Hatch on 11-08-2024 INR Coag (Bld) [Relative time] 1.0 {INR} [facility] MCV (mean corpuscular volume ) determinationOrdered By: [facility] on 11-08-2024 MCV (RBC) [Entitic vol] 89.6 fL 81-99 [facility] Mean corpuscular hemoglobin (MCH) determinationOrdered By: Luz Elena Hatch on 11-08-2024 MCH (RBC) [Entitic mass] 29.3 pg 27.0-32.0 [facility] Mean corpuscular hemoglobin concentration (MCHC) determinationOrdered By: Luz Elena Hatch on 11-08-2024 MCHC (RBC) [Mass/Vol] 32.7 g/dL 32-36 [facility] Mean platelet volume determi nationOrdered By: Luz Elena Hatch on 11-08-2024 Platelet mean volume (Bld) [Entitic vol] 10.3 fL 6.2-12.0 [facility] Monocyte percentageOrdered B y: Luz Elena Hatch on 11-08-2024 Monocytes/100 WBC (Bld) 6.0 % 0-10 [facility] Neutrophil percentageOrdered By: [facility] on 11-08-2024 Neutrophils/100 WBC (Bld) 71.1 % High 47-70 [facility] Nucleated red blood cell per centageOrdered By: Luz Elena Hatch on 11-08-2024 Nucleated RBC/100 WBC (Bld) [Ratio] 0 % 0-5 [facility] Oncology Visit Reporton 10-24 Oncology Visit Report [facility] [address] [place] [address] OFFICE VISIT Date of Service: 11/08/24 1514 MR#: [id number] Acct: [id number] Name: SYBILVALERY A Rep #: [id number] : 1950 From: Luz Elena Hatch MD Age/Sex: 74/F [place] [facility] [place] Signed HPI Subjective Date of Service 11/08/24 Chief Complaint Bruises History of Present Illness 74-year-old female with progressively increasing easy bruising on the extremities over the course of the past few years. She is unaware of any other external bleeding and has had no excessive bleeding with prior surgical procedures. She is not on any blood thinning or antiplatelet agents. She enjoys swimming and standing in the sun. [facility] Medical History (Updated 11/08/24 @ 15:[address] Luz Elena Hatch MD) Abnormal bruising Impacted cerumen, left ear Dysuria HLD (hyperlipidemia) Bruises easily History of shingles Vitamin D deficiency Sciatica Lumbar radiculopathy GERD (gastroesophageal reflux disease) Lung cancer Anxiety Surgical History History of total left knee replacement History of bilateral cataract extraction History of lateral meniscus repair of left knee History of cystoscopy history of bunionectomy History of colonoscopy History of lobectomy of lung History of back surgery History of esophagogastroduodenoscopy (EGD) History of section Family History Aunt Colon cancer Diabetes Mother Thyroid disorder Heart disease Son Hypercholesteremia Grandmother Heart disease Father COPD (chronic obstructive pulmonary disease) Social History Smoking Status: Former smoker quit date: 05/26/08 Tobacco: How many years used: 40 alcohol intake: current alcohol intake frequency: holidays/special occasions only substance use type: does not use ROS Constitutional Constitutional: Reports systems reviewed and no addt'l complaints, except as documented Eyes Eyes: Reports systems reviewed and no addt'l complaints, except as documented ENT HEENT: Reports systems reviewed and no addt'l complaints, except as documented; Denies bleeding gums or epistaxis Cardiovascular Cardiovascular: Reports systems reviewed and no addt'l complaints, except as documented Respiratory/Chest Respiratory/Chest: Reports systems reviewed and no addt'l complaints, except as documented; Denies hemoptysis Gastrointestinal Gastrointestinal: Reports systems reviewed and no addt'l complaints, except as documented; Denies hematochezia or melena Genitourinary Genitourinary: Reports systems reviewed and no addt'l complaints, except as documented; Denies hematuria Musculoskeletal Musculoskeletal: Reports systems reviewed and no addt'l complaints, except as documented Integumentary Integumentary: Reports systems reviewed and no addt'l complaints, except as documented and unusual bruising; Denies bleeding lesions Neurologic Neurologic: Reports systems reviewed and no addt'l complaints, except as documented Psychiatric Psychiatric: Reports systems reviewed and no addt'l complaints, except as documented Endocrine Endocrinology: Reports systems reviewed and no addt'l complaints, except as documented Hematologic/Lymphatic Hematologic/Lymphatic: Reports easy bruising; Denies easy bleeding Allergic/Immunologic Allergic/Immunologic: Reports systems reviewed and no addt'l complaints, except as documented Intake Vital Signs 09/10/24 09:41 11/08/24 15:14 Height 5 ft 4 in 5 ft 4 in Weight: 73.482 kg BMI 27.8 BP 102/69 Blood Pressure Location Rt brachial Position Sitting Respiration 16 Pulse 84 Pulse Source Monitor Temp 97.9 F Temperature Source Temporal Artery Pulse Oximetry (%) 95 Oxygen Delivery Method room air Intake Quantitative Developer Required: No Accompanied by: Self Is patient in pain?: No (right knee) Allergies cephalexin Allergy (Intermediate, Verified 11/08/24 15:16) Rash nitrofurantoin Allergy (Intermediate, Verified 11/08/24 15:16) Rash Sulfa (Sulfonamide Antibiotics) Allergy (Intermediate, Verified 11/08/24 15:16) sores in mouth amoxicillin (From Amoxil) Adverse Reaction (Intermediate, Verified 11/08/24 15:16) yeast bladder infections Medications ???Medication ???Instructions ???Recorded ???Confirmed ???Type atorvastatin 10 mg tablet 10 mg PO QHS cholesterol 06/13/20 11/08/24 History diclofenac sodium 1 % topical gel 4 g topical .QID PRN Pain Or Feve r 07/27/21 11/08/24 Rx #100 grams albuterol sulfate 90 mcg/actuation 1 - 2 puff inhalation Q6H PRN 11/08/24 Rx aerosol inhaler (ProAir HFA) shortness of breath or wheezing #8.5 grams ergocalciferol (vitamin D2 (more content not included)... Normal [facility] Partial Thromboplast Timeon 11-08-2024 aPTT Coag (Bld) [Time] 25.5 s Normal 24.1-36.2 [facility] Comment on above: Performed By: #### L 100.0100, L300.4310, L300.3900 ####[facility] [address] [place], [place], [id number] Platelet countOrdered By: Octavio Hatch on 11-08-2024 Platelets (Bld) [#/Vol] 245 10*3/uL 150-450 [facility] Prothrombin Time w/INRon INR Coag (PPP) [Relative time] 1.0 {INR} Normal [facility] Comment on above: Performed By: #### L 100.0100, L300.4310, L300.3900 ####[facility] [address] [place], [address] PT Coag (PPP) [Time] 12.9 s Normal 11.7-14.9 [facility] Comment on above: Performed By: #### L 100.0100, L300.4310, L300.3900 ####[facility] [address] [place], [address] Prothrombin timeOrdered By: Luz Elena Hatch on 11-08-2024 PT Coag (PPP) [Time] 12.9 s 11.7-14.9 [facility] RBC Auto (Bld) [#/Vol]Ordere d By: Luz Elena Hatch on 11-08-2024 RBC (Bld) [#/Vol] 4.44 10*6/uL 4.2-5.4 [facility] White blood cell (WBC) count Ordered By: Luz Elena Hatch on 11-08-2024 WBC (Bld) [#/Vol] 8.1 10*3/uL 4.4-11.0 [facility] Orthopedic Visit Reporton Orthopedic Visit Report [facility] [address] [place] [address] [address] [place], [place] [address] OFFICE VISIT Date of Service: 11/05/24 MR#: [id number] Acct: [id number] Name: VALERY DEVINE Rep #: [id number] : 1950 Provider: TY saldaña Age/Sex: 74/F [place] [facility] [facility] [place] Status: Signed Intake Vital Signs 09/10/24 09:41 Height 5 ft 4 in Intake Visit Reasons: RIGHT KNEE Chief Complaint: right knee Is patient in pain?: Yes (right knee) Pain scale (1-10): 3 Allergies cephalexin Allergy (Intermediate, Verified 11/05/24 11:34) Rash nitrofurantoin Allergy (Intermediate, Verified 11/05/24 11:34) Rash Sulfa (Sulfonamide Antibiotics) Allergy (Intermediate, Verified 11/05/24 11:34) sores in mouth amoxicillin (From Amoxil) Adverse Reaction (Intermediate, Verified 11/05/24 11:34) yeast bladder infections Medications ???Medication ???Instructions ???Recorded ???Confirmed ???Type acetaminophen 500 mg tablet 1,000 mg (2 x 500 mg) PO Q8 #90 11/05/24 Rx tabs atorvastatin 10 mg tablet 10 mg PO QHS cholesterol 06/13/20 11/05/24 History diclofenac sodium 1 % topical gel 4 g topical .QID PRN Pain Or Feve r 07/27/21 11/05/24 Rx #100 grams albuterol sulfate 90 mcg/actuation 1 - 2 puff inhalation Q6H PRN 11/05/24 Rx aerosol inhaler (ProAir HFA) shortness of breath or wheezing #8.5 grams ergocalciferol (vitamin D2) 1,250 50,000 unit PO QWEEK supplement 0 01/13/23 11/05/24 Rx mcg (50,000 unit) capsule #20 caps vibegron 75 mg tablet 75 mg PO DAILY 02/27/23 11/05/24 H istory magnesium oxide 400 mg PO DAILY #90 caps 03/18/23 11/05/24 Rx mupirocin 2 % topical ointment 1 applic topical BID #15 grams 11/05/24 Rx codeine 10 mg-guaifenesin 100 mg/5 See Rx Instructions PO Q6H PRN 0 08/13/24 11/05/24 Rx mL oral liquid cough #120 mL esomeprazole magnesium 40 mg 40 mg PO QDAY gerd #90 caps 11/05/24 Rx capsule,delayed release ipratropium 0.5 mg-albuterol 3 mg 3 ml inhalation Q6H 5 days #90 mL 11/04/24 11/05/24 Rx (2.5 mg base)/3 mL nebulization soln ipratropium bromide 21 mcg (0.03 2 spray intranasal BID-TID PRN 05/1911/05/24 Rx %) nasal spray postnasal drainage #30 mL Have you fallen in the past year?: No PFSH Medical History Impacted cerumen, left ear Dysuria HLD (hyperlipidemia) Bruises easily History of shingles Vitamin D deficiency Sciatica Lumbar radiculopathy GERD (gastroesophageal reflux disease) Lung cancer Anxiety Surgical History History of total left knee replacement History of bilateral cataract extraction History of lateral meniscus repair of left knee History of cystoscopy history of bunionectomy History of colonoscopy History of lobectomy of lung History of back surgery History of esophagogastroduodenoscopy (EGD) History of section Family History Aunt Colon cancer Diabetes Mother Thyroid disorder Heart disease Son Hypercholesteremia Grandmother Heart disease Father COPD (chronic obstructive pulmonary disease) Social History Smoking Status: Former smoker quit date: 05/26/08 Tobacco: How many years used: 40 alcohol intake: current alcohol intake frequency: holidays/special occasions only substance use type: does not use HPI RIGHT KNEE Chief Complaint: right knee Details: This documentation accurately reflects the service provided and the decisions made by me, SHIN SegundoC 11/05/24 1130. Part of today???s visit was documented by ELYSE Cottrell, acting as scribe. VALERY DEVINE is a 74 year old F here today for 3rd right knee Euflexxa injection. Agree with above. Valery is a pleasant 74-year-old female presenting today for Euflexxa injection to the right knee for OA. Injection #3 of 3. Patient states she is noticing improved range of motion and activity tolerance and tolerated prior injections well. ROS Const All systems reviewed are unremarkable except as noted in H and other (A O x 3, no apparent distress. No recent illness.) ENT Denies dizziness Card Denies chest pain, Denies dyspnea, Denies edema and Reports other (No palpitations) Resp Denies cough, Denies dyspnea and Reports other (No recent URI) GI Reports system reviewed and no additional complaints, except as documented, Denies nausea and Denies vomiting Musc Reports as per HPI Neuro No dizziness Psych Reports system reviewed and no additional complaints, except as documented Tom/Lymph Denies easy bleeding and Denies easy bruising Ortho Exam Right Knee KNEE: Skin is pink, warm, dry and intact. There is n (more content not included)... Normal [facility] Rapid group A Streptococcus antigen assay at point of careOrdered By: Rohan Peralta on 11-04-2024 S. pyogenes Ag IA.rapid Ql (Throat) Negative [facility] Urgent Care Visit Reporton 0 11-04-2024 Urgent Care Visit Report [facility] [address], [address] [place] [address] OFFICE VISIT Date of Service: 11/04/24 MR#: [id number] Acct: [id number] Name: VALERY DEVINE Rep #: [id number] : 1950 Provider: JEY Genao Age/Sex: 74/F [place] [facility] [place] Status: Signed Intake Vital Signs 09/10/24 09:41 11/04/24 08:20 Height 5 ft 4 in Weight: 167 lb 4 oz BMI 28.7 BP 102/68 Position Sitting Pulse 85 Temp 98.6 F Temp Source Oral Pulse Oximetry (%) 98 Oxygen Delivery Method room air Intake Visit Reasons: sore throat Accompanied by: Self Allergies cephalexin Allergy (Intermediate, Verified 11/04/24 08:26) Rash nitrofurantoin Allergy (Intermediate, Verified 11/04/24 08:26) Rash Sulfa (Sulfonamide Antibiotics) Allergy (Intermediate, Verified 11/04/24 08:26) sores in mouth amoxicillin (From Amoxil) Adverse Reaction (Intermediate, Verified 11/04/24 08:26) yeast bladder infections Medications ???Medication ???Instructions ???Recorded ???Confirmed ???Type acetaminophen 500 mg tablet 1,000 mg (2 x 500 mg) PO Q8 #90 11/04/24 Rx tabs atorvastatin 10 mg tablet 10 mg PO QHS cholesterol 06/13/20 11/04/24 History diclofenac sodium 1 % topical gel 4 g topical .QID PRN Pain Or Feve r 07/27/21 11/04/24 Rx #100 grams albuterol sulfate 90 mcg/actuation 1 - 2 puff inhalation Q6H PRN 11/04/24 Rx aerosol inhaler (ProAir HFA) shortness of breath or wheezing #8.5 grams ergocalciferol (vitamin D2) 1,250 50,000 unit PO QWEEK supplement 0 01/13/23 11/04/24 Rx mcg (50,000 unit) capsule #20 caps vibegron 75 mg tablet 75 mg PO DAILY 02/27/23 11/04/24 H istory magnesium oxide 400 mg PO DAILY #90 caps 03/18/23 11/04/24 Rx mupirocin 2 % topical ointment 1 applic topical BID #15 grams 11/04/24 Rx codeine 10 mg-guaifenesin 100 mg/5 See Rx Instructions PO Q6H PRN 0 08/13/24 11/04/24 Rx mL oral liquid cough #120 mL esomeprazole magnesium 40 mg 40 mg PO QDAY gerd #90 caps 11/04/24 Rx capsule,delayed release ipratropium 0.5 mg-albuterol 3 mg 3 ml inhalation Q6H 5 days #90 mL 11/04/24 11/04/24 Rx (2.5 mg base)/3 mL nebulization soln Have you fallen in the past year?: Yes Nurse's Note: Patient has a ST,drainage and cough with some chills going on for a couple days. [facility] History Impacted cerumen, left ear Dysuria HLD (hyperlipidemia) Bruises easily History of shingles Vitamin D deficiency Sciatica Lumbar radiculopathy GERD (gastroesophageal reflux disease) Lung cancer Anxiety Surgical History History of total left knee replacement History of bilateral cataract extraction History of lateral meniscus repair of left knee History of cystoscopy history of bunionectomy History of colonoscopy History of lobectomy of lung History of back surgery History of esophagogastroduodenoscopy (EGD) History of section Family History Aunt Colon cancer Diabetes Mother Thyroid disorder Heart disease Son Hypercholesteremia Grandmother Heart disease Father COPD (chronic obstructive pulmonary disease) Social History Smoking Status: Former smoker quit date: 05/26/08 Tobacco: How many years used: 40 alcohol intake: current alcohol intake frequency: holidays/special occasions only substance use type: does not use HPI HPI Details: VALERY DEVINE, is a 74 F who presents to the office today for complaint sore throat for the past 2 days. Patient denies hemoptysis, shortness of breath or difficulty breathing. No fever, chills, sweats. No nausea, vomiting or diarrhea. No loss of taste or smell. No other associated symptoms or alleviating/aggravating factors. ROS Const Constitutional: Positive for other (ROS negative x 6 except what is described above) Exam Const General: cooperative and healthy appearing HENMT Head: normal to inspection Ears: hearing grossly normal bilaterally, TM's normal bilaterally and EAC's normal Nose: external nose normal and nasal discharge clear Mouth: oral mucosae normal Throat: abnormal tonsil bilaterally Resp Effort Inspection: normal respiratory effort Auscultation: Bilateral: Clear to Auscultation Cardio Palpation: normal PMI Rate: regular rate Rhythm: regular rhythm Neuro General: patient alert and CN's II-XI intact bilaterally Psych Appearance: grossly normal Mental Status: mental status grossly normal Results POC Rapid Strep A Office Rapid Strep A Negative Last Edit by Jany Sheriff MA on 11/04/24 08:30 Coding Level of Care Code Off vis,est,level 3 (more content not included)... Normal [facility] Orthopedic Visit Reporton Orthopedic Visit Report [facility] [address] [place] [address] [address] [place] [address] OFFICE VISIT Date of Service: 10/27/24 MR#: [id number] Acct: [id number] Name: VALERY DEVINE Rep #: [id number] : 1950 Provider: Dr. Ken Thompson so DO Age/Sex: 74/F [place] [facility] [place] Status: Signed Intake Vital Signs 09/10/24 09:41 Height 5 ft 4 in Weight: 167 lb 4 oz BMI 28.7 Intake Visit Reasons: RIGHT KNEE Allergies cephalexin Allergy (Intermediate, Verified 10/27/24 10:56) Rash nitrofurantoin Allergy (Intermediate, Verified 10/27/24 10:56) Rash Sulfa (Sulfonamide Antibiotics) Allergy (Intermediate, Verified 10/27/24 10:56) sores in mouth amoxicillin (From Amoxil) Adverse Reaction (Intermediate, Verified 10/27/24 10:56) yeast bladder infections Medications ???Medication ???Instructions ???Recorded ???Confirmed ???Type acetaminophen 500 mg tablet 1,000 mg (2 x 500 mg) PO Q8 #90 10/27/24 Rx tabs atorvastatin 10 mg tablet 10 mg PO QHS cholesterol 06/13/20 10/27/24 History diclofenac sodium 1 % topical gel 4 g topical .QID PRN Pain Or Feve r 07/27/21 10/27/24 Rx #100 grams albuterol sulfate 90 mcg/actuation 1 - 2 puff inhalation Q6H PRN 10/27/24 Rx aerosol inhaler (ProAir HFA) shortness of breath or wheezing #8.5 grams ergocalciferol (vitamin D2) 1,250 50,000 unit PO QWEEK supplement 0 01/13/23 10/27/24 Rx mcg (50,000 unit) capsule #20 caps vibegron 75 mg tablet 75 mg PO DAILY 02/27/23 10/27/24 H istory magnesium oxide 400 mg PO DAILY #90 caps 03/18/23 10/27/24 Rx mupirocin 2 % topical ointment 1 applic topical BID #15 grams 10/27/24 Rx codeine 10 mg-guaifenesin 100 mg/5 See Rx Instructions PO Q6H PRN 0 08/13/24 10/27/24 Rx mL oral liquid cough #120 mL esomeprazole magnesium 40 mg 40 mg PO QDAY gerd #90 caps 10/27/24 Rx capsule,delayed release Have you fallen in the past year?: Yes PFSH Medical History Impacted cerumen, left ear Dysuria HLD (hyperlipidemia) Bruises easily History of shingles Vitamin D deficiency Sciatica Lumbar radiculopathy GERD (gastroesophageal reflux disease) Lung cancer Anxiety Surgical History History of total left knee replacement History of bilateral cataract extraction History of lateral meniscus repair of left knee History of cystoscopy history of bunionectomy History of colonoscopy History of lobectomy of lung History of back surgery History of esophagogastroduodenoscopy (EGD) History of section Family History Aunt Colon cancer Diabetes Mother Thyroid disorder Heart disease Son Hypercholesteremia Grandmother Heart disease Father COPD (chronic obstructive pulmonary disease) Social History Smoking Status: Former smoker quit date: 05/26/08 Tobacco: How many years used: 40 alcohol intake: current alcohol intake frequency: holidays/special occasions only substance use type: does not use HPI RIGHT KNEE Details: This documentation accurately reflects the service provided and the decisions made by me, Dr. Ken Izaguirre, DO 10/27/24 0804. Part of today???s visit was documented by Danelle KEY, acting as scribe. VALERY DEVINE is a 74 year old F here today for 2nd right knee Euflexxa injection. Ortho Exam General General: Yes no acute distress and Yes well groomed Neurologic: Yes alert and Yes oriented x3 Psychologic: Yes reasonable and appropriate Right Knee Skin/Wound: No erythema, No ecchymosis and No swelling Knee ROM: Yes ROM-Extension -20 to 0 (-7) and Yes ROM-Flexion 0-140 (122) Examination: No Med jt line tenderness and No Lat jt line tenderness Stability: NML: Anterior Drawer, NML: Posterior Drawer and NML: Varus 0 and 1+: Valgus 0 and 1+: Valgus 30 KNEE: skin tear on lower third of her leg multiple ecchymotic areas no effusion 3mm medial gapping w/ valgus stress Office Procedures Euflexxa Procedure Details:: Obtained consent for injection. Under sterile conditions, injected the patients right knee with 20mg/2mL of Euflexxa. The patient tolerated the injection well without any noted complication. Patient should call our office if redness develops, pain worsens or if they have any concerns. Is this Buy Bill?: Yes Office Meds Euflexxa 10 mg/mL (mw 2.4-3.6 million) intra-articular syringe Performing Provider: Ken Izaguirre DO Performing Location: [facility] Administered by: Ken Izaguirre DO on 10/27/24 10:59 Dose Route Admin Location Dispensed Lot Number Expiration Date [employer] Man ufacturer 20 mg intra-articular (more content not included)... Normal [facility] Orthopedic Visit Reporton Orthopedic Visit Report [facility] [address] [place] [address] [address] [place] [address] OFFICE VISIT Date of Service: 10/20/24 MR#: [id number] Acct: [id number] Name: VALERY DEVINE Rep #: [id number] : 1950 Provider: Dr. Ken vargas DO Age/Sex: 74/F [place] [facility] [place] Status: Signed Intake Vital Signs 09/10/24 09:41 Height 5 ft 4 in Weight: 167 lb 4 oz BMI 28.7 Intake Visit Reasons: RIGHT KNEE Allergies cephalexin Allergy (Intermediate, Verified 10/20/24 11:21) Rash nitrofurantoin Allergy (Intermediate, Verified 10/20/24 11:21) Rash Sulfa (Sulfonamide Antibiotics) Allergy (Intermediate, Verified 10/20/24 11:21) sores in mouth amoxicillin (From Amoxil) Adverse Reaction (Intermediate, Verified 10/20/24 11:21) yeast bladder infections Medications ???Medication ???Instructions ???Recorded ???Confirmed ???Type acetaminophen 500 mg tablet 1,000 mg (2 x 500 mg) PO Q8 #90 10/20/24 Rx tabs atorvastatin 10 mg tablet 10 mg PO QHS cholesterol 06/13/20 10/20/24 History diclofenac sodium 1 % topical gel 4 g topical .QID PRN Pain Or Feve r 07/27/21 10/20/24 Rx #100 grams albuterol sulfate 90 mcg/actuation 1 - 2 puff inhalation Q6H PRN 10/20/24 Rx aerosol inhaler (ProAir HFA) shortness of breath or wheezing #8.5 grams ergocalciferol (vitamin D2) 1,250 50,000 unit PO QWEEK supplement 0 01/13/23 10/20/24 Rx mcg (50,000 unit) capsule #20 caps vibegron 75 mg tablet 75 mg PO DAILY 02/27/23 10/20/24 H istory magnesium oxide 400 mg PO DAILY #90 caps 03/18/23 10/20/24 Rx mupirocin 2 % topical ointment 1 applic topical BID #15 grams 10/20/24 Rx codeine 10 mg-guaifenesin 100 mg/5 See Rx Instructions PO Q6H PRN 0 08/13/24 10/20/24 Rx mL oral liquid cough #120 mL esomeprazole magnesium 40 mg 40 mg PO QDAY gerd #90 caps 10/20/24 Rx capsule,delayed release Have you fallen in the past year?: Yes PFSH Medical History Impacted cerumen, left ear Dysuria HLD (hyperlipidemia) Bruises easily History of shingles Vitamin D deficiency Sciatica Lumbar radiculopathy GERD (gastroesophageal reflux disease) Lung cancer Anxiety Surgical History History of total left knee replacement History of bilateral cataract extraction History of lateral meniscus repair of left knee History of cystoscopy history of bunionectomy History of colonoscopy History of lobectomy of lung History of back surgery History of esophagogastroduodenoscopy (EGD) History of section Family History Aunt Colon cancer Diabetes Mother Thyroid disorder Heart disease Son Hypercholesteremia Grandmother Heart disease Father COPD (chronic obstructive pulmonary disease) Social History Smoking Status: Former smoker quit date: 05/26/08 Tobacco: How many years used: 40 alcohol intake: current alcohol intake frequency: holidays/special occasions only substance use type: does not use HPI RIGHT KNEE Details: This documentation accurately reflects the service provided and the decisions made by me, Dr. Ken Izaguirre, 10/20/24 0753. Part of today???s visit was documented by Danelle KEY, acting as scribe. VALERY DEVINE is a 74 year old F here today for first right knee Euflexxa injection. Ortho Exam General General: Yes no acute distress and Yes well groomed Neurologic: Yes alert and Yes oriented x3 Psychologic: Yes reasonable and appropriate Right Knee Skin/Wound: No erythema, No ecchymosis and No swelling Knee ROM: Yes ROM-Extension -20 to 0 (-7) and Yes ROM-Flexion 0-140 (122) Examination: No Med jt line tenderness and No Lat jt line tenderness Stability: NML: Anterior Drawer, NML: Posterior Drawer and NML: Varus 0 and 1+: Valgus 0 and 1+: Valgus 30 KNEE: skin tear on lower third of her leg multiple ecchymotic areas no effusion 3mm medial gapping w/ valgus stress Office Procedures Euflexxa Procedure Details:: Obtained consent for injection. Under sterile conditions, injected the patients right knee with 20mg/2mL of Euflexxa. The patient tolerated the injection well without any noted complication. Patient should call our office if redness develops, pain worsens or if they have any concerns. Is this Buy Bill?: Yes Office Meds Euflexxa 10 mg/mL (mw 2.4-3.6 million) intra-articular syringe Performing Provider: Ken Izaguirre DO Performing Location: [facility] Administered by: Ken Izaguirre DO on 10/20/24 11:24 Dose Route Admin Location Dispensed Lot Number Expiration Date [facility] Man ufacturer 20 mg intra-articula (more content not included)... Normal [facility] Orthopedic Visit Reporton Orthopedic Visit Report [facility] [address] [place] [address] [address] [place] [address] OFFICE VISIT Date of Service: 09/10/24 MR#: [id number] Acct: [id number] Name: VALERY DEVINE Rep #: [id number] : 1950 Provider: Dr. Ken vargas DO Age/Sex: 74/F [place] [facility] [place]: Signed Intake Vital Signs 08/27/24 07:32 09/10/24 09:41 Height 5 ft 4 in 5 ft 4 in Weight: 165 lb 167 lb 4 oz BMI 28.3 28.7 BP 108/78 Blood Pressure Location Lt brachial Position Sitting Respiration 16 Pulse 12 L Pulse Source Monitor Temp 96.2 F L Temp Source Temporal Pulse Oximetry (%) 95 Oxygen Delivery Method room air Intake Visit Reasons: RIGHT KNEE Allergies cephalexin Allergy (Intermediate, Verified 09/10/24 09:41) Rash nitrofurantoin Allergy (Intermediate, Verified 09/10/24 09:41) Rash Sulfa (Sulfonamide Antibiotics) Allergy (Intermediate, Verified 09/10/24 09:41) sores in mouth amoxicillin (From Amoxil) Adverse Reaction (Intermediate, Verified 09/10/24 09:41) yeast bladder infections Medications ???Medication ???Instructions ???Recorded ???Confirmed ???Type acetaminophen 500 mg tablet 1,000 mg (2 x 500 mg) PO Q8 #90 09/10/24 Rx tabs atorvastatin 10 mg tablet 10 mg PO QHS cholesterol 06/13/20 09/10/24 History diclofenac sodium 1 % topical gel 4 g topical .QID PRN Pain Or Feve r 07/27/21 09/10/24 Rx #100 grams albuterol sulfate 90 mcg/actuation 1 - 2 puff inhalation Q6H PRN 09/10/24 Rx aerosol inhaler (ProAir HFA) shortness of breath or wheezing #8.5 grams ergocalciferol (vitamin D2) 1,250 50,000 unit PO QWEEK supplement 0 01/13/23 09/10/24 Rx mcg (50,000 unit) capsule #20 caps vibegron 75 mg tablet 75 mg PO DAILY 02/27/23 09/10/24 H istory magnesium oxide 400 mg PO DAILY #90 caps 03/18/23 09/10/24 Rx mupirocin 2 % topical ointment 1 applic topical BID #15 grams 09/10/24 Rx codeine 10 mg-guaifenesin 100 mg/5 See Rx Instructions PO Q6H PRN 0 08/13/24 09/10/24 Rx mL oral liquid cough #120 mL esomeprazole magnesium 40 mg 40 mg PO QDAY gerd #90 caps 09/10/24 Rx capsule,delayed release Have you fallen in the past year?: Yes PFSH Medical History Impacted cerumen, left ear Dysuria HLD (hyperlipidemia) Bruises easily History of shingles Vitamin D deficiency Sciatica Lumbar radiculopathy GERD (gastroesophageal reflux disease) Lung cancer Anxiety Surgical History History of total left knee replacement History of bilateral cataract extraction History of lateral meniscus repair of left knee History of cystoscopy history of bunionectomy History of colonoscopy History of lobectomy of lung History of back surgery History of esophagogastroduodenoscopy (EGD) History of section Family History Aunt Colon cancer Diabetes Mother Thyroid disorder Heart disease Son Hypercholesteremia Grandmother Heart disease Father COPD (chronic obstructive pulmonary disease) Social History Smoking Status: Former smoker quit date: 05/26/08 Tobacco: How many years used: 40 alcohol intake: current alcohol intake frequency: holidays/special occasions only substance use type: does not use HPI RIGHT KNEE Details: This documentation accurately reflects the service provided and the decisions made by me, Dr. Ken Izaguirre, DO 09/10/24823. Part of today???s visit was documented by Danelle KEY, acting as scribe. VALERY DEVINE is a 74 year old F with a medical history significant for but not limited to history of staph skin infection, easy bruising, history of left total knee arthroplasty, sciatica, lumbar radiculopathy, GERD, anxiety, lung cancer here today for right knee pain that she has had for years. She was referred from [facility] for gel injections. She states that she typically gets good relief with the gel injections. She states that the last injection she had was a steroid injection that didn't give her a lot of relief. She has pain over the medial compartment of the knee. She did have a meniscus tear in the right knee that she had repaired with [facility] a couple of years ago. She takes Tylenol or Meloxicam for the pain. She last last had xray of her right knee in 2022 with [facility]. She states that the meniscus repair did not go very well as she had a lot of pain after the surgery. The last time she had the gel injections was before she had the meniscus repair. Ortho Exam General General: Yes no acute distress and Yes well groomed Neurologic: Yes alert and Yes oriente (more content not included)... Normal [facility] SCRN MAMM (CAD)W/LISA BILATo n 09-10-2024 SCRN MAMM (CAD)W/LISA BILAT [facility] Imaging Services [address] [place] [address] SCRN MAMM (CAD)W/LISA BILAT MR#: [id number] Acct: [id number] Name: VALERY DEVINE Rep #: [id number] : 1950 F 74 From: Ophelia Burns MD PCP: Dr. 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 Computer aided detection. COMPARISON: Prior exam(s) dated 05/09/2023, 07/26/2021. FINDINGS: TISSUE DENSITY: The breast tissue is composed of scattered area of fibroglandular density. Bilateral Breast Mammographic Findings: No significant masses, calcifications or other abnormalities are identified. BI/SCRN MAMM (CAD)W/LISA BILAT IMPRESSION: Right Breast: BIRADS 1 NEGATIVE. Left Breast: BIRADS 1 NEGATIVE. OVERALL FINAL ASSESSMENT: BIRADS 1 NEGATIVE. RECOMMENDATION: Routine annual follow-up in 1 Year A letter with findings and recommendations will be mailed to the patient. Reading Location: [facility] CC: Dr. Bean Bettencourt DO Manager Recruiting: Signed Normal [facility] Internal Medicine Office Vis iton 08-27-2024 Internal Medicine Office Visit [facility] [address] [place] [address] [place] [address] OFFICE VISIT Date of Service: 08/27/24 MR#: [id number] Acct: [id number] Name: VALERY DEVINE Rep #: [id number] : 1950 Provider: JEY Cabello Age/Sex: 74/F [place] [facility] [place] Status: Signed Intake Vital Signs 08/22/24 08:46 08/27/24 07:32 Height 5 ft 4 in 5 ft 4 in Weight: 165 lb BMI 28.3 BP 108/78 Blood Pressure Location Lt brachial Position Sitting Respiration 16 Pulse 12 L Pulse Source Monitor Temp 96.2 F L Temp Source Temporal Pulse Oximetry (%) 95 Oxygen Delivery Method room air Intake Visit Reasons: acute h fu Chief Complaint: acute fu Quantitative Developer Required: No Accompanied by: Self Is patient in pain?: No Allergies cephalexin Allergy (Intermediate, Verified 08/27/24 07:29) Rash nitrofurantoin Allergy (Intermediate, Verified 08/27/24 07:29) Rash Sulfa (Sulfonamide Antibiotics) Allergy (Intermediate, Verified 08/27/24 07:29) sores in mouth amoxicillin (From Amoxil) Adverse Reaction (Intermediate, Verified 08/27/24 07:29) yeast bladder infections Medications ???Medication ???Instructions ???Recorded ???Confirmed ???Type acetaminophen 500 mg tablet 1,000 mg (2 x 500 mg) PO Q8 #90 08/27/24 Rx tabs atorvastatin 10 mg tablet 10 mg PO QHS cholesterol 06/13/20 08/27/24 History diclofenac sodium 1 % topical gel 4 g topical .QID PRN Pain Or Feve r 07/27/21 08/27/24 Rx #100 grams albuterol sulfate 90 mcg/actuation 1 - 2 puff inhalation Q6H PRN 08/27/24 Rx aerosol inhaler (ProAir HFA) shortness of breath or wheezing #8.5 grams ergocalciferol (vitamin D2) 1,250 50,000 unit PO QWEEK supplement 0 01/13/23 08/27/24 Rx mcg (50,000 unit) capsule #20 caps vibegron 75 mg tablet 75 mg PO DAILY 02/27/23 08/27/24 H istory magnesium oxide 400 mg PO DAILY #90 caps 03/18/23 08/27/24 Rx esomeprazole magnesium 40 mg 40 mg PO QDAY gerd #90 caps 08/27/24 Rx capsule,delayed release mupirocin 2 % topical ointment 1 applic topical BID #15 grams 08/27/24 Rx codeine 10 mg-guaifenesin 100 mg/5 See Rx Instructions PO Q6H PRN 0 08/13/24 08/27/24 Rx mL oral liquid cough #120 mL Have you fallen in the past year?: No Nurse's Note: left nostril had spot possibly mrsa or impetigo PFSH Medical History Impacted cerumen, left ear Dysuria HLD (hyperlipidemia) Bruises easily History of shingles Vitamin D deficiency Sciatica Lumbar radiculopathy GERD (gastroesophageal reflux disease) Lung cancer Anxiety Surgical History History of total left knee replacement History of bilateral cataract extraction History of lateral meniscus repair of left knee History of cystoscopy history of bunionectomy History of colonoscopy History of lobectomy of lung History of back surgery History of esophagogastroduodenoscopy (EGD) History of section Family History Aunt Colon cancer Diabetes Mother Thyroid disorder Heart disease Son Hypercholesteremia Grandmother Heart disease Father COPD (chronic obstructive pulmonary disease) Social History Smoking Status: Former smoker quit date: 05/26/08 Tobacco: How many years used: 40 alcohol intake: current alcohol intake frequency: holidays/special occasions only substance use type: does not use HPI HPI Chief Complaint: acute fu Details: VALERY DEVINE, is a 74 F who presents to the office today for f/u for lesion on her nose. She states that this started when she had her sinus infection and she was constantly blowing her nose and wiping her nose. She states that she was constantly doing this and so she could tell that the nose was becoming irritated/raw and then when this started to get bigger and grow then she went to [facility]. Patient was placed on doxycycline as well as given an ointment that she can use twice a day. She states that this has definitely decreased quite a bit but she just wanted to have this checked again as she was concerned because they told her it was either MRSA or impetigo and that she was extremely contagious. Patient was also in the ER due to some numbness on the left cheek and bottom of her nose. She woke up and noticed this numbness and so she went to the ED. They did do a CTA, an EKG and some labs all of which were negative. The symptoms actually had resolved within an hour or 2 and have not returned. Patient has not had any sensation changes or other issues in that area since that time. She did not notice any swelling at the same time she did have that 1 the lesion (more content not included)... Normal [facility] 12 Lead EKGon 08-22-2024 12 Lead EKG [facility] Cardiovascular Services [address] [place] [address] 12 Lead EKG 08/22/24 0956 MR#: [id number] Acct: [id number] Name: VALERY DEVINE Rep #: [id number] : 1950 74 From: Dusty Car MD Attending Dr: Status: DEP ER Ordering Dr: Fred Langley DO Date: 08/22/24 Location: ED Sex: F C Admitted: Test Reason : NEURO Blood Pressure : */* mmHG Vent. Rate : 61 BPM Atrial Rate : 61 BPM P-R Int : 116 ms QRS Dur : 72 ms QT Int : 444 ms P-R-T Axes : 62 54 60 degrees QTcB Int : 446 ms Normal sinus rhythm Otherwise normal ECG Confirmed by DUSTY CRA MD ([id number]), supervising editor trailer LACHELLE MCLAUGHLIN ([id number]) on 08/24/2024 8:23:51 AM Referred By: Confirmed By: DUSTY CAR MD 08/24/24 0823 Date Dusty Car MD CC: Dr. Fred Langley, DO; Dr. Bean Bettencourt DO Signed Normal [facility] Absolute lymphocyte countOrd ered By: Fred Langley on 08-22-2024 Lymphocytes Auto (Unsp spec) [#/Vol] 1.26 10*3/uL 0.83-4.51 [facility] Absolute neutrophil countOrd ered By: Fred Langley on 08-22-2024 Neutrophils (Bld) [#/Vol] 3.1 10*3/uL 2.0-7.7 [facility] Anion gap in Serum or Plasma Ordered By: Fred Langley on 08-22-2024 Anion gap [Moles/Vol] 9 mmol/L 5-15 [facility] Automated lymphocyte count a s percentage of total leukocytesOrdered By: Fred Langley on 08-22-2024 Lymphocytes/100 WBC Auto (Unsp spec) 25.9 % 19-41 [facility] BUN/creatinine ratioOrdered By: Fred Langley on 08-22-2024 Urea nitrogen/Creatinine [Mass ratio] 25.9 mg/mg High 10-20 [facility] Basic Metabolic Profile (BMP )on 08-22-2024 BUN/CRE 25.9 RATIO High 10- [facility] Comment on above: Performed By: #### L 100.0100, L500.2500 ####[facility] [address] [place], [address] Calcium [Mass/Vol] 8.8 mg/dL Normal 7.6-11.0 [facility] Comment on above: Performed By: #### L 100.0100, L500.2500 ####[facility] [address] [place], [address] Chloride [Moles/Vol] 109 mmol/L High 98-108 [facility] Comment on above: Performed By: #### L 100.0100, L500.2500 ####[facility] [address] [place], [address] CO2 [Moles/Vol] 23.4 mmol/L Normal 21.0-32.0 [facility] Comment on above: Performed By: #### L 100.0100, L500.2500 ####[facility] [address] [place], [address] Creatinine [Mass/Vol] 0.71 mg/dL Normal 0.70-1.20 [facility] Comment on above: Performed By: #### L 100.0100, L500.2500 ####[facility] [address] [place], [address] ECRCL 61.95 ml/min Normal 50-250 [facility] Comment on above: Performed By: #### L 100.0100, L500.2500 ####[facility] [address] [place], [address] GAP 9 Normal 5-15 [facility] Comment on above: Performed By: #### L 100.0100, L500.2500 ####[facility] [address] [place], [address] GFR/1.73 sq M.predicted among non-blacks MDRD (S/P/Bld) [Vol rate/Area] 89 mL/min/{1.73_m2} Normal >60 [facility] Comment on above: Result Comment: mL/m in/1.73m2 CKD-EPI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 History of lobectomy of lung History of back surgery History of esophagogastroduodenoscopy (EGD) History of section Family History Aunt Colon cancer Diabetes Mother Thyroid disorder Heart disease Son Hypercholesteremia Grandmother Heart disease Father COPD (chronic obstructive pulmonary disease) Social History Smoking Status: Former smoker quit date: 05/26/08 Tobacco: How many years used: 40 alcohol intake: current alcohol intake frequency: holidays/special occasions only substance use type: does not use HPI HPI Chief Complaint: ACUTE COUGH Details: VALERY DEVINE, is a 74 F who presents to the office today for cough x 1 week. She states that its all all up here pointing to her throat area. She states that its not in her chest. She has had some nasal congestion with some runny nose. cough is occasionally productive of sputum. She has noticed some wheezing. She has not had any fevers. She has been taking the antibiotic and the prednisone as directed. She states that the cough is her biggest concern at this time as it is pretty constant and it does not allow her to sleep. She was taking mucinex but then stopped it switching to the claritin-D. ROS Const Constitutional: No body ache, chills, excessive sweating, fatigue, fever(s), frequent falls, headache(s), snoring, weight change, sleep problems, abnormal sleep pattern or change in appetite Eyes Eyes: No blurry vision, change in vision, eye pain or Light sensitivity ENT ENT: No abnormal hearing, ear or mastoid pain, tinnitus, nasal congestion, headache(s), neck pain or sore throat Resp Respiratory: No cough, shortness of breath, snoring or wheezing Cardio Cardiology: No chest garfield (more content not included)... Normal [facility] Urgent Care Visit Reporton 0 08-04-2024 Urgent Care Visit Report [facility] [address], [address] [place] [address] OFFICE VISIT Date of Service: 08/04/24 MR#: [id number] Acct: [id number] Name: VALERY DEVINE Rep #: [id number] : 1950 Provider: JEY Jimenez Age/Sex: 74/F [place] [facility] [place] Status: Signed Intake Vital Signs 08/02/24 07:37 08/04/24 06:47 Height 5 ft 4 in BP 118/88 H 120/80 Blood Pressure Location Lt brachial Lt brachial Position Sitting Sitting Respiration 16 16 Pulse 90 78 Pulse Source Monitor NIBP Temp 98.1 F 98.0 F Temp Source Oral Oral Pulse Oximetry (%) 99 97 Oxygen Delivery Method room air room air Oxygen Flow Rate (L/min) 98. Intake Visit Reasons: 2ND VISIT/COUGH/DELROY Chief Complaint: Cough, sore throat, chills Allergies cephalexin Allergy (Intermediate, Verified 08/04/24 06:47) Rash nitrofurantoin Allergy (Intermediate, Verified 08/04/24 06:47) Rash Sulfa (Sulfonamide Antibiotics) Allergy (Intermediate, Verified 08/04/24 06:47) sores in mouth amoxicillin (From Amoxil) Adverse Reaction (Intermediate, Verified 08/04/24 06:47) yeast bladder infections Have you fallen in the past year?: No PFSH Medical History Impacted cerumen, left ear Dysuria HLD (hyperlipidemia) Bruises easily History of shingles Vitamin D deficiency Sciatica Lumbar radiculopathy GERD (gastroesophageal reflux disease) Lung cancer Anxiety Surgical History History of total left knee replacement History of bilateral cataract extraction History of lateral meniscus repair of left knee History of cystoscopy history of bunionectomy History of colonoscopy History of lobectomy of lung History of back surgery History of esophagogastroduodenoscopy (EGD) History of section Family History Aunt Colon cancer Diabetes Mother Thyroid disorder Heart disease Son Hypercholesteremia Grandmother Heart disease Father COPD (chronic obstructive pulmonary disease) Social History Smoking Status: Former smoker quit date: 05/26/08 Tobacco: How many years used: 40 alcohol intake: current alcohol intake frequency: holidays/special occasions only substance use type: does not use HPI HPI Chief Complaint: Cough, sore throat, chills Details: VALERY DEVINE, is a 74 F who presents to the office today for [facility] for approximately 3-4 day history of persistent chills, cough, sore throat -noting minimal to no improvement with prednisone and benzonatate as prescribed 2 days ago here at the [facility]. Patient notes no complaints of fever, PIZANO, myalgias, fatigue, congestion/ runny nose, nausea, diarrhea, or chest pain or shortness of breath or dyspnea on exertion. Several close contacts recently dx???d w/ similar URI complaints. Nonsmoker. No cukj-[id number]-pyhpeyy taken to assist. No other associated symptoms and no other alleviating/aggravating factors. ROS Const Constitutional: No other (As above) Exam Const General: cooperative, healthy appearing and no acute distress Orientation: alert, awake and oriented x3 HENMT Head: normal to inspection Ears: hearing grossly normal bilaterally, external ears normal, TM's normal bilaterally and EAC's normal Nose: external nose normal, nares normal, septum normal and clear nasal discharge Face and sinus: normal facial exam, sinuses nontender and face symmetric Mouth: oral mucosae normal, lip normal, tongue normal and oropharynx normal Throat: posterior oropharynx normal, tonsils normal, uvula midline and no postnasal drainage Eyes General: appearance normal, both eyes and all related structures Neck Neck: normal visual inspection, full ROM, no lymphadenopathy, no meningeal signs and supple Neck mass: No Thyroid: thyroid normal Lymphatic: no lymphadenopathy noted Chest Chest palpation inspection: normal inspection of the chest Resp Effort Inspection: normal respiratory effort, able to speak in complete sentences and cough Quality of cough: wet (nonproductive in office today) Auscultation: Bilateral: Clear to Auscultation Cardio Palpation: normal PMI Rate: regular Rhythm: regular rhythm Heart Sounds: S1 normal, S2 normal, no gallops, no murmurs and no rubs Pulses: radial pulses present Skin General: no rashes or lesions noted Neuro General: patient alert, patient awake and patient oriented x3 Cognition: normal cognition Speech: speech normal Psych Appearance: grossly normal Mental Status: mental status grossly normal Mood: congruent mood Affect: normal affect Speech and Movement: speech and movement normal Attitude: cooperative Diagnos (more content not included)... Normal [facility] No Panel InformationOrdered By: Mark Kirby on 08-02-2024 Influenza Types A,B Rapid (Clinic) Negative [facility] POC SARS CoV-2 Antigen Negative [facility] Urgent Care Visit Reporton 0 08-02-2024 Urgent Care Visit Report [facility] [address] , [address] [place] [address] OFFICE VISIT Date of Service: 08/02/24 MR#: [id number] Acct: [id number] Name: VALERY DEVINE Rep #: [id number] : 1950 Provider: JEY Jimenez Age/Sex: 74/F [place] [facility] [place] Status: Signed Intake Vital Signs 06/16/24 13:00 08/02/24 07:37 Height 5 ft 4 in 5 ft 4 in Weight: 165 lb BMI 28.3 BP 118/78 118/88 H Blood Pressure Location Rt brachial Lt brachial Position Sitting Sitting Respiration 16 16 Pulse 82 90 Pulse Source Monitor Monitor Temp 97.9 F 98.1 F Temp Source Temporal Oral Pulse Oximetry (%) 98 99 Oxygen Delivery Method room air room air Oxygen Flow Rate (L/min) 98. Intake Visit Reasons: SORE THROAT, COUGH, HEADACHE, CHILLS Chief Complaint: Cough, sore throat, chills Quantitative Developer Required: No Accompanied by: Self Is patient in pain?: No Allergies cephalexin Allergy (Intermediate, Verified 08/02/24 07:37) Rash nitrofurantoin Allergy (Intermediate, Verified 08/02/24 07:37) Rash Sulfa (Sulfonamide Antibiotics) Allergy (Intermediate, Verified 08/02/24 07:37) sores in mouth amoxicillin (From Amoxil) Adverse Reaction (Intermediate, Verified 08/02/24 07:37) yeast bladder infections Medications ???Medication ???Instructions ???Recorded ???Confirmed ???Type acetaminophen 500 mg tablet 1,000 mg (2 x 500 mg) PO Q8 #90 08/02/24 Rx tabs atorvastatin 10 mg tablet 10 mg PO QHS cholesterol 06/13/20 08/02/24 History diclofenac sodium 1 % topical gel 4 g topical .QID PRN Pain Or Feve r 07/27/21 08/02/24 Rx #100 grams albuterol sulfate 90 mcg/actuation 1 - 2 puff inhalation Q6H PRN 08/02/24 Rx aerosol inhaler (ProAir HFA) shortness of breath or wheezing #8.5 grams ergocalciferol (vitamin D2) 1,250 50,000 unit PO QWEEK supplement 0 01/13/23 08/02/24 Rx mcg (50,000 unit) capsule #20 caps ibuprofen 800 mg tablet 800 mg PO TID PRN Pain Or Fever 08/02/24 Rx #90 tabs trimethoprim 100 mg tablet 100 mg PO DAILY 02/27/23 08/02/24 History vibegron 75 mg tablet 75 mg PO DAILY 02/27/23 08/02/24 H istory magnesium oxide 400 mg PO DAILY #90 caps 03/18/23 08/02/24 Rx esomeprazole magnesium 40 mg 40 mg PO QDAY gerd #90 caps 08/02/24 Rx capsule,delayed release hydroquinone 4 % topical cream 1 applic topical BID #28.35 grams 06/29/24 08/02/24 Rx benzonatate 200 mg capsule 200 mg PO TID PRN cough #20 caps 0 08/02/24 08/02/24 Rx prednisone 20 mg tablet 20 mg PO BID #14 tabs 08/02/2403/19 Rx Have you fallen in the past year?: No PFSH Medical History Impacted cerumen, left ear Dysuria HLD (hyperlipidemia) Bruises easily History of shingles Vitamin D deficiency Sciatica Lumbar radiculopathy GERD (gastroesophageal reflux disease) Lung cancer Anxiety Surgical History History of total left knee replacement History of bilateral cataract extraction History of lateral meniscus repair of left knee History of cystoscopy history of bunionectomy History of colonoscopy History of lobectomy of lung History of back surgery History of esophagogastroduodenoscopy (EGD) History of section Family History Aunt Colon cancer Diabetes Mother Thyroid disorder Heart disease Son Hypercholesteremia Grandmother Heart disease Father COPD (chronic obstructive pulmonary disease) Social History Smoking Status: Former smoker quit date: 05/26/08 Tobacco: How many years used: 40 alcohol intake: current alcohol intake frequency: holidays/special occasions only substance use type: does not use HPI HPI Chief Complaint: Cough, sore throat, chills Details: VALERY DEVINE, is a 74 F who presents to the office today for [facility] in the [facility] for approximately 24-hour history of persistent chills, cough, sore throat. Patient notes no complaints of fever, PIZANO, myalgias, fatigue, congestion/ runny nose, nausea, diarrhea, or chest pain or shortness of breath or dyspnea on exertion. Several close contacts recently dx???d w/ similar URI complaints. Nonsmoker. No ilxx-niu-mpzgfag taken to assist, though on old benzonatate prescription was tried w/o assist. No other associated symptoms and no other alleviating/aggravating factors. ROS Const Constitutional: No other (As above) Exam Const General: cooperative, healthy appearing and no acute distress Orientation: alert, awake and oriented x3 HENMT Head: normal to inspection Ears: hearing grossly normal bilaterally, external ears normal, TM's normal bilate (more content not included)... Normal [facility] Coronary Angiography CTon Coronary Angiography CT [facility] Imaging Services [address] [place] [address] 07/22/24 1826 MR#: [id number] Acct: [id number] Name: VALERY DEVINE Rep #: [id number] : 1950 74 From: Dusty Car MD PCP: Dr. Bean Bettencourt, DO Status:REG REF Y Location: CT Calcium Scoring Date of Study:: 07/14/24 Indications Indications: FH Coronary Calcium Scoring: High-resolution Computed Tomographic imaging of the chest was performed on [07/14/24 ], with particular attention paid to the coronary arteries. Images from the examination were analyzed for the presence and extent of coronary artery calcification , using coronary calcium quantification software. The patient tolerated the procedure well and there were no complications. The results of the coronary calcification analysis are provided below. Findings Coronary Artery Left Main (LM): 0 Left Anterior Descending (LAD): 0 Left Circumflex (LCX): 0 Right Coronary Artery (RCA): 0 Total Agatston Score: 0 Percentile Rankin Calcium Scoring Interpretation: Different methods to categorize the overall amount of coronary plaque. Overall amount CAC SIS Visual of coronary plaque P1 Mild -100 <2 1-2 vessels with mild amount of plaque P2 Moderate 101-300 3-4 1-2 vessels with moderate amount, 3 vessels with mild amount of plaque P3 Severe 301-999 5-7 3 vessels with moderate amount, 1 vessel with severe amount of plaque P4 Extensive >1000 >8 2-3 vessels with severe amount of plaque Conclusion: No atherosclerotic plaque noted 07/22/24 1828 Date Dusty Car MD Cosigner Signature (if applicable): Date CC: Dr. Dusty Car MD; Dr. Bean Bettencourt, DO Signed Normal [facility] Limited Chest CT Cardiac Onl yon 07-14-[address] Cardiac Only [facility] Imaging Services [address] [place] [id number] Cardiac Only MR#: [id number] Acct: [id number] Name: VALERY DEVINE Rep #: [id number] : 1950 F 74 From: Eliseo pillai MD PCP: Dr. Bean Bettencourt DO Status: REG REF Study: Limited Chest CT Cardiac Only Date of Exam: Exam# [id number] Ordering Dr: Bean Bettencourt DO PROCEDURE: LIMITED CHEST CT CARDIAC ONLY REASON FOR EXAM: Family history of coronary artery disease. TECHNIQUE: Multiple axial tomographic images were obtained without intravenous contrast administration. Comparison is made with prior study dated August 08. COMPARISON: None. FINDINGS: CHEST: Lines and tubes: None. Mediastinum: No evidence of mediastinal hemorrhage. Heart: Normal heart size. No pericardial effusion. Coronary artery calcification. Thoracic Aorta: No evidence of acute traumatic aortic injury. Lungs and Airways: Surgical clips are seen hilar region. 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 Pleura: No pleural effusion. No pneumothorax. Bones: Degenerative changes of the spine. Moderate-sized hiatal hernia. CT/Limited Chest CT Cardiac Only IMPRESSION: Coronary artery calcification. Moderate-sized hiatal hernia. Prior surgery in the left upper lobe. One or more dose reduction techniques were used (e.g., Automated exposure control, adjustment of the mA and/or kV according to patient size, use of iterative reconstruction technique). Reading Location: [facility] CC: Dr. Bean Bettencourt DO Manager Recruiting: Signed Normal [facility] Facial Bones min 3 Viewson 0 06-16-2024 Facial Bones min 3 Views [facility] Radiology [address] [place] [address] Facial Bones min 3 Views MR#: [id number] Acct: [id number] Name: VALERY DEVINE Rep #: [id number] : 1950 F 74 From: Roosevelt Thomas PCP: Status: DEP AMB Study: Facial Bones min 3 Views Date of Exam: 5 Exam# [id number] Ordering Dr: Bean Bettencourt DO [id number] STUDY: X-RAY - FACIAL BONES REASON FOR STUDY: Female, 74 years old. contusion to forehead TECHNIQUE: 3 view(s) of the facial bones. COMPARISON: MR brain August 02, [address] brain August 02, 2022.. FINDINGS: Lucency noted within the frontal bone measuring 8 mm. 26 mm more subtle lucency noted in the parietal region. Normal bilateral frontozygomatic and zygomatic-temporal arches. Normal bilateral medial and inferior orbital cristobal. Normal bilateral orbits. Normal visualized nasal bones. Normal anterior nasal spine. The remaining visualized osseous structures are normal. Normal visualized paranasal sinuses. RAD/Facial Bones min 3 Views IMPRESSION: Small lucency frontal bone and ill-defined lucency parietal bone. These appear to correspond to lesions noted on prior CT and MRI. Follow-up nonemergent bone scan again recommended. No acute fracture noted. Electronically Signed: Roosevelt Andrews MD at 17:29 EST Reading Location ID and State: [facility] / [place] Tel , Service support , CC: Dr. Bean Bettencourt DO Manager Recruiting: Signed Normal [facility] Internal Medicine Office Vis iton 06-16-2024 Internal Medicine Office Visit [facility] [address] [place] [address] [address] [place] [address] OFFICE VISIT Date of Service: 06/16/24 MR#: [id number] Acct: [id number] Name: VALERY DEVINE Rep #: [id number] : 1950 Provider: Dr. Bean mullins DO Age/Sex: 74/F [place] [facility] [facility] [place]: Signed Intake Vital Signs 04/28/24 09:35 06/16/24 13:00 Height 5 ft 4 in 5 ft 4 in Weight: 165 lb BMI 28.3 BP 118/78 118/78 Blood Pressure Location Rt brachial Rt brachial Position Sitting Sitting Respiration 12 16 Pulse 73 82 Pulse Source NIBP Monitor Temp 97.7 F L 97.9 F Temp Source Oral Temporal Pulse Oximetry (%) 99 98 Oxygen Delivery Method room air room air Intake Visit Reasons: FELL SWOLLEN EYE Chief Complaint: Swollen left eye. Quantitative Developer Required: No Accompanied by: Self Is patient in pain?: Yes (left hip) Pain scale (1-10): 5 Allergies cephalexin Allergy (Intermediate, Verified 06/16/24 12:57) Rash nitrofurantoin Allergy (Intermediate, Verified 06/16/24 12:57) Rash Sulfa (Sulfonamide Antibiotics) Allergy (Intermediate, Verified 06/16/24 12:57) sores in mouth amoxicillin (From Amoxil) Adverse Reaction (Intermediate, Verified 06/16/24 12:57) yeast bladder infections Medications ???Medication ???Instructions ???Recorded ???Confirmed ???Type acetaminophen 500 mg tablet 1,000 mg (2 x 500 mg) PO Q8 #90 08/10/19 06/16/24 Rx tabs atorvastatin 10 mg tablet 10 mg PO QHS cholesterol 06/13/20 06/16/24 History diclofenac sodium 1 % topical gel 4 g topical .QID PRN Pain Or Fever 07/27/21 06/16/24 Rx #100 grams albuterol sulfate 90 mcg/actuation 1 - 2 puff inhalation Q6H PRN 03/10/22 06/16/24 Rx aerosol inhaler (ProAir HFA) shortness of breath or wheezing #8.5 grams ergocalciferol (vitamin D2) 1,250 50,000 unit PO QWEEK supplement 01/13/23 06/16/24 Rx mcg (50,000 unit) capsule #20 caps ibuprofen 800 mg tablet 800 mg PO TID PRN Pain Or Fever 02/27/23 06/16/24 Rx #90 tabs trimethoprim 100 mg tablet 100 mg PO DAILY 02/27/23 06/16/24 History vibegron 75 mg tablet 75 mg PO DAILY 02/27/23 06/16/24 History magnesium oxide 400 mg PO DAILY #90 caps 03/18/23 06/16/24 Rx esomeprazole magnesium 40 mg 40 mg PO QDAY gerd #90 caps 02/26/24 06/16/24 Rx capsule,delayed release hydroquinone 4 % topical cream 1 applic topical BID #28.35 grams 06/16/24 06/16/24 Rx Have you fallen in the past year?: Yes ( 3wks ago tubing.left eye/eyebrow, left arm injury) [facility] Medical History Impacted cerumen, left ear Dysuria HLD (hyperlipidemia) Bruises easily History of shingles Vitamin D deficiency Sciatica Lumbar radiculopathy GERD (gastroesophageal reflux disease) Lung cancer Anxiety Surgical History History of total left knee replacement History of bilateral cataract extraction History of lateral meniscus repair of left knee History of cystoscopy history of bunionectomy History of colonoscopy History of lobectomy of lung History of back surgery History of esophagogastroduodenoscopy (EGD) History of section Family History Aunt Colon cancer Diabetes Mother Thyroid disorder Heart disease Son Hypercholesteremia Grandmother Heart disease Father COPD (chronic obstructive pulmonary disease) Social History Smoking Status: Former smoker quit date: 05/26/08 Tobacco: How many years used: 40 alcohol intake: current alcohol intake frequency: holidays/special occasions only substance use type: does not use HPI HPI Chief Complaint: Swollen left eye. Details: VALERY DEVINE, is a 74 F who presents to the office today for evaluation of a soft swollen area over her left eye. She [facility] to [facility] when she fell and hit her head and her arm. She was badly bruised for a while and now she feels an area that feels squishy to her in the area above her left eye. She is also concerned about a discolored area on her right lower leg that does not bother her as far as it being painful but is cosmetically troublesome. ROS Const Constitutional: No body ache, chills, excessive sweating, fatigue, fever(s), frequent falls, headache(s), snoring, weakness, sleep problems or change in appetite Eyes Eyes: No blurry vision, change in vision, eye pain or Light sensitivity ENT ENT: No abnormal hearing, ear or mastoid pain, tinnitus, nasal congestion, headache(s), neck pain or sore throat Resp Respiratory: No cough, shortness of breath, snoring or wheezing Cardio Cardiology: No chest pain at rest, chest pain with exertion, excessive sweating, shortness of breath, dyspnea on exertion, lightheadedness, orthopnea (more content not included)... Normal [facility] Urine Cultureon 04-30-2024 URC Enterococcus faecali s [place] Count >100,000 Enterococcus faecalis: REACTION Ampicillin Islt ARLETH <=2 Ciprofloxacin Islt ARLETH 1 S Gentamicin Synergy Susc Islt SYN-S S levoFLOXacin Islt ARLETH 1 S Linezolid Islt ARLETH 2 S Nitrofurantoin Islt ARLETH <=16 S Streptomycin High Pot Susc Islt SYN-S S Tetracycline Islt ARLETH >=16 R Vancomycin Islt ARLETH 2 S Normal [facility] Comment on above: Performed By: #### M [id number] #### [facility] Laboratory [address] [place], [address] Laboratory - Chemistry and C hemistry - challengeon 04-28-2024 Bilirubin Ql (U) Negative [facility] Glucose Ql (U) Negative [facility] Ketones Ql (U) Negative [facility] pH (U) 7.0 [pH] [facility] Specific gravity (U) [Rel density] 1.005 [facility] Urobilinogen (U) [Mass/Vol] Negative [facility] Laboratory - Hematology and Cell countson 04-28-2024 Hemoglobin Ql (U) Moderate [facility] Laboratory - Specimen inform ationon 04-28-2024 Clarity (U) Cloudy [facility] Color (U) YELLOW [facility] Laboratory - Urinalysison Nitrite Ql (U) Negative [facility] Protein Ql (U) Trace [facility] No Panel Informationon 04-28 Urine Leukocytes Positive [facility] Urine Non-Hemolyzed Blood Trace [facility] Urgent Care Visit Reporton 1 06-29-2023 Urgent Care Visit Report [facility] [address], [address] [place], [place] [id number] OFFICE VISIT Date of Service: 04/28/24 MR#: [id number] Acct: [id number] Name: VALERY DEVINE Rep #: [id number] : 1950 Provider: JEY Jimenez Age/Sex: 74/F [place] [facility] [place] Status: Signed Intake Vital Signs 03/23/24 08:35 04/28/24 09:35 Height 5 ft 4 in 5 ft 4 in Weight: 164 lb BMI 28.1 BP 108/64 118/78 Blood Pressure Location Lt brachial Rt brachial Position Sitting Sitting Respiration 16 12 Pulse 90 73 Pulse Source Monitor NIBP Temp 97.5 F L 97.7 F L Temp Source Temporal Oral Pulse Oximetry (%) 99 99 Oxygen Delivery Method room air room air Intake Visit Reasons: CONCERN FOR UTI Chief Complaint: UTI symptoms Quantitative Developer Required: No Is patient in pain?: No Allergies cephalexin Allergy (Intermediate, Verified 04/28/24 09:37) Rash nitrofurantoin Allergy (Intermediate, Verified 04/28/24 09:37) Rash Sulfa (Sulfonamide Antibiotics) Allergy (Intermediate, Verified 04/28/24 09:37) sores in mouth amoxicillin (From Amoxil) Adverse Reaction (Intermediate, Verified 04/28/24 09:37) yeast bladder infections Medications ???Medication ???Instructions ???Recorded ???Confirmed ???Type acetaminophen 500 mg tablet 1,000 mg (2 x 500 mg) PO Q8 #90 08/10/19 04/28/24 Rx tabs atorvastatin 10 mg tablet 10 mg PO QHS cholesterol 06/13/20 04/28/24 History diclofenac sodium 1 % topical gel 4 g topical .QID PRN Pain Or Fever 07/27/21 04/28/24 Rx #100 grams albuterol sulfate 90 mcg/actuation 1 - 2 puff inhalation Q6H PRN 03/10/22 04/28/24 Rx aerosol inhaler (ProAir HFA) shortness of breath or wheezing #8.5 grams ergocalciferol (vitamin D2) 1,250 50,000 unit PO QWEEK supplement 01/13/23 04/28/24 Rx mcg (50,000 unit) capsule #20 caps ibuprofen 800 mg tablet 800 mg PO TID PRN Pain Or Fever 02/27/23 04/28/24 Rx #90 tabs trimethoprim 100 mg tablet 100 mg PO DAILY 02/27/23 04/28/24 History vibegron 75 mg tablet 75 mg PO DAILY 02/27/23 04/28/24 History magnesium oxide 400 mg PO DAILY #90 caps 03/18/23 04/28/24 Rx esomeprazole magnesium 40 mg 40 mg PO QDAY gerd #90 caps 02/26/24 04/28/24 Rx capsule,delayed release ciprofloxacin HCl 500 mg tablet 500 mg PO BID #10 tabs 04/28/24 04/28/24 Rx Is last menstrual period known: No Post menopausal: No Patient : No Have you fallen in the past year?: No Nurse's Note: patient here for UTI symptoms, back pain, chills, burning with urination, frequency began last night. [facility] Medical History Impacted cerumen, left ear Dysuria HLD (hyperlipidemia) Bruises easily History of shingles Vitamin D deficiency Sciatica Lumbar radiculopathy GERD (gastroesophageal reflux disease) Lung cancer Anxiety Surgical History History of total left knee replacement History of bilateral cataract extraction History of lateral meniscus repair of left knee History of cystoscopy history of bunionectomy History of colonoscopy History of lobectomy of lung History of back surgery History of esophagogastroduodenoscopy (EGD) History of section Family History Aunt Colon cancer Diabetes Mother Thyroid disorder Heart disease Son Hypercholesteremia Grandmother Heart disease Father COPD (chronic obstructive pulmonary disease) Social History Smoking Status: Former smoker quit date: 05/26/08 Tobacco: How many years used: 40 alcohol intake: current alcohol intake frequency: holidays/special occasions only substance use type: does not use HPI HPI Chief Complaint: UTI symptoms Details: VALERY DEVINE, is a 74 F who presents to the office today for [facility] for less than 24-hour history of dysuria and urinary frequency with suprapubic pressure and low back pain. No complaints of fever, chills, sweats, lightheadedness/dizziness, nausea/vomiting, or chest pain/shortness of breath/dyspnea on exertion/mid-back pain. No changes in color/ character of urine or stool; no urethral/ vaginal discharge. No [id number] products taken to assist. No other associated symptoms and no alleviating/aggravating factors. ROS Const Constitutional: No other (As above) Exam Const General: cooperative, healthy appearing and no acute distress Orientation: alert, awake and oriented x3 Chest Chest palpation inspection: normal inspection of the chest Resp Effort Inspection: normal respiratory effort and able to speak in complete sentences Auscultation: Bilateral: Clear to Auscultati (more content not included)... Normal [facility] Urine cultureOrdered By: Iam Kirby on 04-28-2024 Bacteria identified Cx Nom (U) Enterococcus faecalis Abnormal [facility] Internal Medicine Office Vis iton 03-23-2024 Internal Medicine Office Visit [facility] [address] [place], [place] [address] OFFICE VISIT Date of Service: 03/23/24 MR#: [id number] Acct: [id number] Name: VALERY DEVINE Zaida Rep #: [id number] : 1950 Provider: TY mills Age/Sex: 73/F [place] [facility] [place] Status: Signed Intake Vital Signs 01/08/24 08:57 03/23/24 08:35 Height 5 ft 4 in 5 ft 4 in Weight: 164 lb BMI 28.1 BP 108/64 Blood Pressure Location Lt brachial Position Sitting Respiration 16 Pulse 90 Pulse Source Monitor Temp 97.5 F L Temp Source Temporal Pulse Oximetry (%) 99 Oxygen Delivery Method room air Intake Visit Reasons: PAIN WHEN COUGHING - NOT SICK Quantitative Developer Required: No Is patient in pain?: Yes (Chest) Pain scale (1-10): 0 Allergies cephalexin Allergy (Intermediate, Verified 03/23/24 08:25) Rash nitrofurantoin Allergy (Intermediate, Verified 03/23/24 08:25) Rash Sulfa (Sulfonamide Antibiotics) Allergy (Intermediate, Verified 03/23/24 08:25) sores in mouth amoxicillin (From Amoxil) Adverse Reaction (Intermediate, Verified 03/23/24 08:25) yeast bladder infections Medications ???Medication ???Instructions ???Recorded ???Confirmed ???Type acetaminophen 500 mg tablet 1,000 mg (2 x 500 mg) PO Q8 #90 08/10/19 03/23/24 Rx tabs atorvastatin 10 mg tablet 10 mg PO QHS cholesterol 06/13/20 03/23/24 History diclofenac sodium 1 % topical gel 4 g topical .QID PRN Pain Or Fever 07/27/21 03/23/24 Rx #100 grams albuterol sulfate 90 mcg/actuation 1 - 2 puff inhalation Q6H PRN 03/10/22 03/23/24 Rx aerosol inhaler (ProAir HFA) shortness of breath or wheezing #8.5 grams ergocalciferol (vitamin D2) 1,250 50,000 unit PO QWEEK supplement 01/13/23 03/23/24 Rx mcg (50,000 unit) capsule #20 caps ibuprofen 800 mg tablet 800 mg PO TID PRN Pain Or Fever 02/27/23 03/23/24 Rx #90 tabs trimethoprim 100 mg tablet 100 mg PO DAILY 02/27/23 03/23/24 History vibegron 75 mg tablet 75 mg PO DAILY 02/27/23 03/23/24 History magnesium oxide 400 mg PO DAILY #90 caps 03/18/23 03/23/24 Rx esomeprazole magnesium 40 mg 40 mg PO QDAY gerd #90 caps 02/26/24 03/23/24 Rx capsule,delayed release Have you fallen in the past year?: No Nurse's Note: States she is having a lot of chest burning and pain. States it is all the time. Doesn't hurt when she breathes. Had a lobe removed from Lung. States she coughs sometimes but thinks it is due to hital hernia. Has been taking meloxicam when it gets bad. Has also tried heat,ice,tens unit, ibuprofen. States when she moves arms up and down it makes it worse, and will bring pain to a 10. States she has been getting terrible cramps in lower legs. [facility] Medical History Impacted cerumen, left ear Dysuria HLD (hyperlipidemia) Bruises easily History of shingles Vitamin D deficiency Sciatica Lumbar radiculopathy GERD (gastroesophageal reflux disease) Lung cancer Anxiety Surgical History History of total left knee replacement History of bilateral cataract extraction History of lateral meniscus repair of left knee History of cystoscopy history of bunionectomy History of colonoscopy History of lobectomy of lung History of back surgery History of esophagogastroduodenoscopy (EGD) History of section Family History Aunt Colon cancer Diabetes Mother Thyroid disorder Heart disease Son Hypercholesteremia Grandmother Heart disease Father COPD (chronic obstructive pulmonary disease) Social History Smoking Status: Former smoker quit date: 05/26/08 Tobacco: How many years used: 40 alcohol intake: current alcohol intake frequency: holidays/special occasions only substance use type: does not use HPI HPI Details: VALERY DEVINE, is a 73 F who presents to the office today for an acute visit for bilateral upper back pain x several months to even years. She reports it is to her upper bilateral back/upper shoulders. She describes it as a burning sensation. She reports it does not radiate anteriorly and she has no chest pain today. She reports previous chest pain that was reported at her most recent visit has resolved. She has been utilizing meloxicam, heat, ice and TENS unit without significant relief. 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 She denies motor weakness, frequent dropping of items, numbness and tingling radiating down arms or hands. She denies neck pain or pain with range of motion of her (more content not included)... Normal [facility] Thoracic Spine 2 Viewson Thoracic Spine 2 Views [facility] Imaging Services [address] [place], [place] [address] Thoracic Spine 2 Views MR#: [id number] Acct: [id number] Name: VALERY DEVINE Zaida Rep #: [id number] : 1950 F 73 From: Marcus Thomas PCP: Dr. Bean Bettencourt, Status: REG CLI Study: Thoracic Spine 2 Views Date of Exam: 03/23/24 Exam# [id number] Ordering Dr: Elise Samson [id number] EXAM: XR THORACIC SPINE, 2 VIEWS CLINICAL INDICATION: upper back pain TECHNIQUE: Frontal and lateral views of the thoracic spine. COMPARISON: No relevant prior studies available. FINDINGS: VERTEBRAE: Mild exaggeration of the normal thoracic kyphosis. Preserved vertebral body height. No fracture. No spondylolisthesis. No significant facet arthropathy. 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 OTHER FINDINGS: Bones are diffusely osteopenic. RAD/Thoracic Spine 2 Views IMPRESSION: 1. Mild exaggeration of the normal thoracic kyphosis. 2. Bones are diffusely osteopenic. 3. Mild degenerative disc disease lower thoracic spine. 4. No acute thoracic spine abnormality. Electronically Signed: Marcus Roger MD at 7:55 EDT , CC: TY Samson; Dr. Bean Bettencourt DO Manager Recruiting: Signed Normal [facility] Urgent Care Visit Reporton 0 01-29-2024 Urgent Care Visit Report [facility] [address], [address] [place] [address] OFFICE VISIT Date of Service: 01/29/24 MR#: [id number] Acct: [id number] Name: VALERY DEVINE Rep #: [id number] : 1950 Provider: JEY Genao Age/Sex: 73/F [place] [facility] [facility] [place] Status: Signed Intake Vital Signs 01/08/24 08:57 01/29/24 11:59 Height 5 ft 4 in BP 138/78 H Blood Pressure Location Lt brachial Position Sitting Respiration 17 Pulse 65 Pulse Source NIBP Temp 98.3 F Temp Source Temporal Pulse Oximetry (%) 100 Oxygen Delivery Method room air Intake Visit Reasons: Urinary tract infection Chief Complaint: dysuria Quantitative Developer Required: No Is patient in pain?: No Allergies cephalexin Allergy (Intermediate, Verified 01/29/24 11:59) Rash nitrofurantoin Allergy (Intermediate, Verified 01/29/24 11:59) Rash Sulfa (Sulfonamide Antibiotics) Allergy (Intermediate, Verified 01/29/24 11:59) sores in mouth amoxicillin (From Amoxil) Adverse Reaction (Intermediate, Verified 01/29/24 11:59) yeast bladder infections Is last menstrual period known: No Post menopausal: Yes Patient : No Have you fallen in the past year?: No Nurse's Note: dysuria, chills x 4-5 days. gave urine to Dr. Franco's office friday but cannot get return call with results. pt did not want to wait anymore, very uncomfortable. denies abd pain/back pain/fever. concern for UTI. pt took pyridium prior to arrival, sample is very orange. unable to dip. provider notified. [facility] Medical History Impacted cerumen, left ear Dysuria HLD (hyperlipidemia) Bruises easily History of shingles Vitamin D deficiency Sciatica Lumbar radiculopathy GERD (gastroesophageal reflux disease) Lung cancer Anxiety Surgical History History of total left knee replacement History of bilateral cataract extraction History of lateral meniscus repair of left knee History of cystoscopy history of bunionectomy History of colonoscopy History of lobectomy of lung History of back surgery History of esophagogastroduodenoscopy (EGD) History of section Family History Aunt Colon cancer Diabetes Mother Thyroid disorder Heart disease Son Hypercholesteremia Grandmother Heart disease Father COPD (chronic obstructive pulmonary disease) Social History Smoking Status: Former smoker quit date: 05/26/08 Tobacco: How many years used: 40 alcohol intake: current alcohol intake frequency: holidays/special occasions only substance use type: does not use HPI HPI Chief Complaint: dysuria Details: VALERY SYBIL, is a 73 F who presents to the office today for concern of UTI. Patient states that she did drop a urine off at her urologist office 2 days ago for testing after starting to have increasing urgency/frequency and dysuria. Patient denies any fever, chills, sweats. No nausea, vomiting, diarrhea. No loss of taste or smell. She has not gotten a result back from her culture yet. No other associated symptoms or alleviating/aggravating factors. ROS Const Constitutional: Positive for other (ROS negative x 6 except what is described above) Exam Const General: cooperative and healthy appearing Resp Effort Inspection: normal respiratory effort Auscultation: Bilateral: Clear to Auscultation Cardio Rate: regular rate Rhythm: regular rhythm GI Auscultation: normal bowel sounds General: No CVA tenderness Psych Appearance: grossly normal Mental Status: mental status grossly normal Coding Level of Care Code Off vis,est,level 3 Diagnoses UTI (urinary tract infection) N39.0 Assessment and Plan Assessment and Plan (1) UTI (urinary tract infection): Status: Acute Plan: Cipro as prescribed today. Encouraged to get plenty of rest, drink lots of clear liquids, and use Tylenol or Ibuprofen (unless contraindicated) for fever and comfort. Patient also educated on other symptomatic management techniques. To be seen in 7-10 days if no improvement; sooner if worsening of symptoms. Patient advised of potential red flags and when appropriate to report to the ED. Patient verbalized understanding and agreement with all the above. Orders: Orders Urinalysis, Complete Today R30.0 - Dysuria Culture, Urine Today N39.0 - Urinary tract infection, site not specified Medications: New ciprofloxacin HCl (Cipro) 500 mg PO BID 5 days 10 tabs 0RF Clinical Quality Measures Falls Risk Screening/Assistive Devices Have you fallen in the past year?: No 01/29/24 1326 Date Rohan Prasad (more content not included)... Normal [facility] Culture, urineOrdered By: Von Peralta on 09-08-2023 Bacteria identified Cx Nom (U) Enterococcus faecalis [facility] Laboratory - Chemistry and C hemistry - challengeon 09-05-2023 Bilirubin Ql (U) Negative [facility] Glucose Ql (U) Negative [facility] Ketones Ql (U) Small (15+) [facility] pH (U) 6 [pH] [facility] Specific gravity (U) [Rel density] 1.015 [facility] Urobilinogen (U) [Mass/Vol] Negative [facility] Laboratory - Hematology and Cell countson 09-05-2023 Hemoglobin Ql (U) Hemolyzed [facility] Laboratory - Specimen inform ationon 09-05-2023 Clarity (U) Cloudy [facility] Color (U) Yellow [facility] Laboratory - Urinalysison Nitrite Ql (U) Negative [facility] Protein Ql (U) Negative [facility] No Panel Informationon 09-04 Urine Leukocytes Positive [facility] Urine Non-Hemolyzed Blood Large [facility] Basophil percentageOrdered B y: Shashi Fish on 08-15-2023 Bilirubin [Mass/Vol] 0.50 mg/dL 0.20-1.00 [facility] Comment on above: For patients on eltr ombopag therapy, use of Dimension [place] TBIL is not recommended. Chloride [Moles/Vol] 110 mmol/L 98-107 [facility] Cholesterol [Mass/Vol] 167 mg/dL <200 [facility] Comment on above: <200 mg/dL Desirable 200-240 mg/dL Borderline >240 mg/dL High Risk Glucose [Mass/Vol] 91 mg/dL 74-106 [facility] Hemoglobin (Bld) [Mass/Vol] 13.3 g/dL 12.0-15.0 [facility] Potassium [Moles/Vol] 3.8 mmol/L 3.5-5.1 [facility] Protein [Mass/Vol] 6.7 g/dL 6.4-8.2 [facility] Sodium [Moles/Vol] 142 mmol/L 136-145 [facility] Triglyceride [Mass/Vol] 71 mg/dL <199 [facility] Comment on above: The drugs N-Acetylcy steine and Metamizole may falsely depress this assay.Serum Triglycerides Reference Interval Normal <150 mg/dL Borderline high 150 - 199 mg/dL High 200 - 499 mg/dL Very High > or = 500 mg/dL WBC (Bld) [#/Vol] 5.4 10*3/uL 4.4-11.0 [facility] Determination of erythrocyte mean corpuscular volume (MCV)Ordered By: Shashi Green on 08-15-2023 MCV (RBC) [Entitic vol] 89.4 fL 81-99 [facility] Erythrocyte distribution wid th ratioOrdered By: Shashi Fish on 08-15-2023 Erythrocyte distribution width (RBC) [Ratio] 14.2 % 11.6-14.6 [facility] Erythrocyte distribution wid th standard deviationOrdered By: Shashi Fish on 08-15-2023 Erythrocyte distribution width (RBC) [Entitic vol] 46.3 fL 35.1-43.9 [facility] Hematocrit Auto (Bld) [Volum e fraction]Ordered By: Shashi Fish on 08-15-2023 Hematocrit (Bld) [Volume fraction] 41.3 % 37-47 [facility] Laboratory - Chemistry and C hemistry - challengeOrdered By: Shashi Fish on 08-15-2023 Albumin/Globulin [Mass ratio] 1.0 {ratio} 0.9-2.4 [facility] ALP [Catalytic activity/Vol] 122 U/L 45-117 [facility] ALT [Catalytic activity/Vol] 23 U/L 13-56 [facility] Cholesterol in HDL [Mass/Vol] 82 mg/dL >40 [facility] Comment on above: The drugs N-Acetylcy steine and Metamizole may falsely depress this assay. Reference Range HDL <40 mg/dL Low HDL Cholesterol HDL >or= 60 mg/dL High HDL Cholesterol Cholesterol in LDL [Mass/Vol] 71 mg/dL 0-130 [facility] CO2 [Moles/Vol] 28.0 mmol/L 21.0-32.0 [facility] Globulin (S) [Mass/Vol] 3.4 g/dL 2.2-4.2 [facility] Urea nitrogen/Creatinine [Mass ratio] 27.9 mg/mg 10-20 [facility] Laboratory - Hematology and Cell countsOrdered By: Shashi Green on 08-15-2023 MCH (RBC) [Entitic mass] 28.8 pg 27.0-32.0 [facility] MCHC (RBC) [Mass/Vol] 32.2 g/dL 32-36 [facility] Platelet mean volume (Bld) [Entitic vol] 11.1 fL 6.2-12.0 [facility] Platelets (Bld) [#/Vol] 234 10*3/uL 150-450 [facility] No Panel InformationOrdered By: Shashi Green on 08-15-2023 Estimated GFR (MDRD) Amer 109 mL/min >60 [facility] Comment on above: GFR Calc Estimated GFR (MDRD) Non-Af Amer 90 mL/min >60 [facility] Comment on above: Non- GFR Calc VLDL Cholesterol 14 mg/dL 5-40 [facility] RBC Auto (Bld) [#/Vol]Ordere d By: Shashi Green on 08-15-2023 RBC (Bld) [#/Vol] 4.62 10*6/uL 4.2-5.4 [facility] Serum or plasma calcium gisel urement (mass/volume)Ordered By: Shashi Green on 08-15-2023 Calcium [Mass/Vol] 9.3 mg/dL 8.5-10.1 [facility] Serum or plasma creatinine m easurement (mass/volume)Ordered By: Shashi Green on 08-15-2023 Creatinine [Mass/Vol] 0.68 mg/dL 0.55-1.02 [facility] Comment on above: The validity of the calculated GFR & GFRAA in patients over 70 years has not been determined. Clinical correlation is essential. Serum or plasma urea nitroge n measurement (mass/volume)Ordered By: Shashi Green on 08-15-2023 Urea nitrogen [Mass/Vol] 19 mg/dL 7-18 [facility] Thin prep Papanicolaou smear with manual screeningOrdered By: Shashi Green on 08-15-2023 Thin prep Papanicolaou smear with manual screening 3.3 g/dL 3.2-5.0 [facility] Thin prep Papanicolaou smear with manual screening 18 U/L 15-37 [facility] Thin prep Papanicolaou smear with manual screening 4 5-15 [facility] Culture, urineOrdered By: Stephanie Mena on 08-04-2023 Bacteria identified Cx Nom (U) Positive [facility] Laboratory - Chemistry and C hemistry - challengeon 08-02-2023 Bilirubin Ql (U) Negative [facility] Glucose Ql (U) Negative [facility] Ketones Ql (U) Negative [facility] pH (U) 5.0 [pH] [facility] Specific gravity (U) [Rel density] >1.030 [facility] Urobilinogen (U) [Mass/Vol] Negative [facility] Laboratory - Hematology and Cell countson 08-02-2023 Hemoglobin Ql (U) Moderate [facility] Laboratory - Specimen inform ationon 08-02-2023 Clarity (U) Clear [facility] Color (U) Yellow [facility] Laboratory - Urinalysison Nitrite Ql (U) Negative [facility] Protein Ql (U) Trace [facility] No Panel Informationon 08-01 Urine Leukocytes Positive [facility] Urine Non-Hemolyzed Blood [facility] Culture, urineOrdered By: Octavio ttnatasha Toussaint on 06-13-2023 Bacteria identified Cx Nom (U) Staphylococcus epidermidis [facility] Absolute lymphocyte countOrd ered By: Bean Ra on 02-27-2023 Lymphocytes Auto (Unsp spec) [#/Vol] 1.73 10*3/uL 0.83-4.51 [facility] Basophil percentageOrdered B y: Bean Bettencourt on 02-27-2023 Basophils/100 WBC (Bld) 0.6 % 0-1 [facility] Bilirubin [Mass/Vol] 0.30 mg/dL 0.20-1.00 [facility] Comment on above: For patients on eltr ombopag therapy, use of Dimension [place] TBIL is not recommended. Chloride [Moles/Vol] 111 mmol/L 98-107 [facility] Eosinophils/100 WBC (Bld) 0.4 % 0-5 [facility] Glucose [Mass/Vol] 97 mg/dL 74-106 [facility] Neutrophils (Bld) [#/Vol] 4.5 10*3/uL 2.0-7.7 [facility] Neutrophils/100 WBC (Bld) 66.1 % 47-70 [facility] Potassium [Moles/Vol] 3.8 mmol/L 3.5-5.1 [facility] Protein [Mass/Vol] 6.7 g/dL 6.4-8.2 [facility] Sodium [Moles/Vol] 143 mmol/L 136-145 [facility] WBC (Bld) [#/Vol] 6.9 10*3/uL 4.4-11.0 [facility] Blood erythrocytes count (nu mber/volume)Ordered By: Bean Bettencourt on 02-27-2023 RBC (Bld) [#/Vol] 4.45 10*6/uL 4.2-5.4 [facility] Blood hemoglobin measurement (mass/volume)Ordered By: Bean Bettencourt on 02-27-2023 Hemoglobin (Bld) [Mass/Vol] 12.8 g/dL 12.0-15.0 [facility] Blood lymphocytes/100 leukoc ytesOrdered By: Bean Bettencourt on 02-27-2023 Lymphocytes/100 WBC (Bld) 25.2 % 19-41 [facility] Blood monocytes/100 leukocyt esOrdered By: Bean Bettencourt on 02-27-2023 Monocytes/100 WBC (Bld) 7.4 % 0-10 [facility] Blood platelet mean volumeOr dered By: Bean Bettencourt on 02-27-2023 Platelet mean volume (Bld) [Entitic vol] 10.8 fL 6.2-12.0 [facility] Determination of erythrocyte mean corpuscular volume (MCV)Ordered By: Bean Bettencourt on 02-27-2023 MCV (RBC) [Entitic vol] 92.6 fL 81-99 [facility] Hematocrit Auto (Bld) [Volum e fraction]Ordered By: Bean Bettencourt on 02-27-2023 Hematocrit (Bld) [Volume fraction] 41.2 % 37-47 [facility] INR in Blood by Coagulation assayOrdered By: Bean Bettencourt on 02-27-2023 INR Coag (Bld) [Relative time] 1.0 {INR} [facility] Laboratory - Chemistry and C hemistry - challengeOrdered By: Bean Bettencourt on 02-27-2023 ALP [Catalytic activity/Vol] 106 U/L 45-117 [facility] ALT [Catalytic activity/Vol] 25 U/L 13-56 [facility] CO2 [Moles/Vol] 28.0 mmol/L 21.0-32.0 [facility] Globulin (S) [Mass/Vol] 3.1 g/dL 2.2-4.2 [facility] Urea nitrogen/Creatinine [Mass ratio] 21.7 mg/mg 10-20 [facility] Laboratory - CoagulationOrde red By: Bean Bettencourt on 02-27-2023 PT Coag (PPP) [Time] 13.4 s 11.7-14.9 [facility] Laboratory - Hematology and Cell countsOrdered By: Bean Bettencourt on 02-27-2023 Erythrocyte distribution width (RBC) [Entitic vol] 48.9 fL 35.1-43.9 [facility] Erythrocyte distribution width (RBC) [Ratio] 14.4 % 11.6-14.6 [facility] Immature granulocytes/100 WBC (Bld) 0.300 % 0.0-0.9 [facility] Comment on above: IG% - Immature Granu locytes (promyelocytes, myelocytes and metamyelocytes) > 1% indicates that a LEFT SHIFT is Present. MCH (RBC) [Entitic mass] 28.8 pg 27.0-32.0 [facility] Nucleated RBC/100 WBC (Bld) [Ratio] 0 % 0-5 [facility] MCHC Auto (RBC) [Mass/Vol]Or dered By: Bean Bettencourt on 02-27-2023 MCHC (RBC) [Mass/Vol] 31.1 g/dL 32-36 [facility] No Panel InformationOrdered By: Bean Bettencourt on 02-27-2023 Estimated GFR (MDRD) Amer 99 mL/min >60 [facility] Comment on above: GFR Calc Estimated GFR (MDRD) Non-Af Amer 82 mL/min >60 [facility] Comment on above: Non- GFR Calc Platelets bldOrdered By: Jer Bettencourt on 02-27-2023 Platelets (Bld) [#/Vol] 219 10*3/uL 150-450 [facility] Serum or plasma albumin gisel urement (mass/volume)Ordered By: Bean Bettencourt on 02-27-2023 Albumin [Mass/Vol] 3.6 g/dL 3.2-5.0 [facility] Serum or plasma albumin/glob ulin mass ratioOrdered By: Bean Bettencourt on 02-27-2023 Albumin/Globulin [Mass ratio] 1.2 {ratio} 0.9-2.4 [facility] Serum or plasma calcium gisel urement (mass/volume)Ordered By: Bean Bettencourt on 02-27-2023 Calcium [Mass/Vol] 8.8 mg/dL 8.5-10.1 [facility] Serum or plasma creatinine m easurement (mass/volume)Ordered By: Bean Bettencourt on 02-27-2023 Creatinine [Mass/Vol] 0.74 mg/dL 0.55-1.02 [facility] Comment on above: The validity of the calculated GFR & GFRAA in patients over 70 years has not been determined. Clinical correlation is essential. Serum or plasma urea nitroge n measurement (mass/volume)Ordered By: Bean Bettencourt on 02-27-2023 Urea nitrogen [Mass/Vol] 16 mg/dL 7-18 [facility] Thin prep Papanicolaou smear with manual screeningOrdered By: Bean Bettencourt on 02-27-2023 Thin prep Papanicolaou smear with manual screening 16 U/L 15-37 [facility] Thin prep Papanicolaou smear with manual screening 4 5-15 [facility] Culture, urineOrdered By: Von Peralta on 12-19-2022 Bacteria identified Cx Nom (U) Culture exhibits no growth. [facility] Laboratory - Chemistry and C hemistry - challengeon 12-19-2022 Bilirubin Ql (U) Negative [facility] Glucose Ql (U) Negative [facility] Ketones Ql (U) Negative [facility] pH (U) 6.0 [pH] [facility] Specific gravity (U) [Rel density] 1.020 [facility] Urobilinogen (U) [Mass/Vol] 0.8475300 mg/dL [facility] Laboratory - Hematology and Cell countson 12-19-2022 Hemoglobin Ql (U) Negative [facility] Laboratory - Specimen inform ationon 12-19-2022 Clarity (U) Cloudy [facility] Color (U) Yellow [facility] Laboratory - Urinalysison Nitrite Ql (U) Negative [facility] Protein Ql (U) Negative [facility] No Panel Informationon 12-19 Urine Leukocytes Positive [facility] Urine Non-Hemolyzed Blood [facility] Amorphous sediment detection in urine sediment by light microscopyOrdered By: Mark Kirby on 11-27-2022 Amorphous sediment LM Ql (Urine sed) 1+ URATE [facility] Basophil percentageOrdered B y: Mark Kirby on 11-27-2022 Basophil percentage 10-25 SEEN /hpf 0-5 [facility] Bilirubin Test strip Ql (U)O rdered By: Mark Kirby on 11-27-2022 Bilirubin Ql (U) Negative Negative [facility] Culture, urineOrdered By: St samantha Kirby on 11-27-2022 Bacteria identified Cx Nom (U) Presumptive E. coli [facility] Ketones Test strip Ql (U)Ord ered By: Mark Kirby on 11-27-2022 Ketones Ql (U) Negative Negative [facility] Laboratory - Chemistry and C hemistry - challengeon 11-27-2022 Bilirubin Ql (U) Negative [facility] Glucose Ql (U) Negative [facility] Ketones Ql (U) Negative [facility] pH (U) 6.0 [pH] [facility] Specific gravity (U) [Rel density] 1.020 [facility] Urobilinogen (U) [Mass/Vol] 0.0448348 mg/dL [facility] Laboratory - Hematology and Cell countson 11-27-2022 Hemoglobin Ql (U) Negative [facility] Laboratory - Specimen inform ationon 11-27-2022 Clarity (U) Clear [facility] Color (U) Lashonda [facility] Laboratory - Urinalysison Nitrite Ql (U) Negative [facility] Protein Ql (U) Negative [facility] Mucus LM Ql (Urine sed)Order ed By: Mark Kirby on 11-27-2022 Mucus Ql (Urine sed) 0 SEEN /hpf [facility] Nitrite Test strip Ql (U)Ord ered By: Mark Kirby on 11-27-2022 Nitrite Ql (U) Negative Negative [facility] No Panel Informationon 11-27 Urine Leukocytes Negatve [facility] Urine Non-Hemolyzed Blood Negative [facility] Protein Test strip Ql (U)Ord ered By: Mark Kirby on 11-27-2022 Protein Ql (U) Negative Negative [facility] Squamous epithelial cells de tection in urine sediment by light microscopyOrdered By: Mark Kirby on 11-27-2022 Epithelial cells.squamous LM Ql (Urine sed) 0-5 SEEN /hpf 5-10 [facility] Urine blood detectionOrdered By: Mark Kirby on 11-27-2022 RBC Ql (U) 10 /ul Negative [facility] RBC Ql (U) 0-5 SEEN /hpf 0-5 [facility] Urine clarityOrdered By: Iam Kirby on 11-27-2022 Clarity (U) Sl. Cloudy Clear [facility] Urine color determinationOrd ered By: Mark Kirby on 11-27-2022 Color (U) Yellow Yellow [facility] Urine glucose detectionOrder ed By: Mark Kirby on 11-27-2022 Glucose Ql (U) Normal mg/dl Normal [facility] Urine leukocyte esterase det ection by dipstickOrdered By: Mark Kirby on 11-27-2022 Leukocyte esterase Test strip Ql (U) 100 /ul Negative [facility] Urine pHOrdered By: Mark rhodes on 11-27-2022 pH (U) 6.0 [pH] 5.0 - 8.0 [facility] Urine sediment bacteria coun t by microscopy (number/high power field)Ordered By: Mark Kirby on 11-27-2022 Bacteria LM.HPF (Urine sed) [#/Area] RARE /hpf None Seen [facility] Urine specific gravity measu rementOrdered By: Mark Kirby on 11-27-2022 Specific gravity (U) [Rel density] 1.020 1.002-1.030 [facility] Urobilinogen Auto test strip Ql (U)Ordered By: Mark Kirby on 11-27-2022 Urobilinogen Ql (U) Normal mg/dl Normal [facility] Basophil percentageOrdered B y: Dr. Kim on 10-30-2022 Basophil percentage 10-25 SEEN /hpf 0-5 [facility] Bilirubin Test strip Ql (U)O rdered By: Dr. Kim on 10-30-2022 Bilirubin Ql (U) 6 mg/dL Negative [facility] Comment on above: COLOR OF URINE MAY A FFECT DIPSTICK RESULTS. Culture, urineOrdered By: Katy Faye on 10-30-2022 Bacteria identified Cx Nom (U) Culture exhibits no growth. [facility] Ketones Test strip Ql (U)Ord ered By: Dr. Kim on 10-30-2022 Ketones Ql (U) Negative Negative [facility] Mucus LM Ql (Urine sed)Order ed By: Dr. Kim on 10-30-2022 Mucus Ql (Urine sed) 0 SEEN /hpf [facility] Nitrite Test strip Ql (U)Ord ered By: Dr. Kim on 10-30-2022 Nitrite Ql (U) Positive Negative [facility] Protein Test strip Ql (U)Ord ered By: Dr. Kim on 10-30-2022 Protein Ql (U) 30 mg/dl Negative [facility] Squamous epithelial cells de tection in urine sediment by light microscopyOrdered By: Dr. Kim on 10-30-2022 Epithelial cells.squamous LM Ql (Urine sed) 0 SEEN /hpf 5-10 [facility] Urine blood detectionOrdered By: Dr. Kim on 10-30-2022 RBC Ql (U) 10 /ul Negative [facility] RBC Ql (U) 0 SEEN /hpf 0-5 [facility] Urine clarityOrdered By: Dr. Kim on 10-30-2022 Clarity (U) Sl. Cloudy Clear [facility] Urine color determinationOrd ered By: Dr. Kim on 10-30-2022 Color (U) SEE COMMENT BELOW Yellow [facility] Comment on above: Visual Urine Color: ORANGE Urine glucose detectionOrder ed By: Dr. Kim on 10-30-2022 Glucose Ql (U) Normal mg/dl Normal [facility] Urine leukocyte esterase det ection by dipstickOrdered By: Dr. Kim on 10-30-2022 Leukocyte esterase Test strip Ql (U) 25 /ul Negative [facility] Urine pHOrdered By: Dr. Danielle rankin on 10-30-2022 pH (U) 6.0 [pH] 5.0 - 8.0 [facility] Urine sediment bacteria coun t by microscopy (number/high power field)Ordered By: Dr. Kim on 10-30-2022 Bacteria LM.HPF (Urine sed) [#/Area] 1 /[HPF] None Seen [facility] Urine specific gravity measu rementOrdered By: Dr. Kim on 10-30-2022 Specific gravity (U) [Rel density] 1.025 1.002-1.030 [facility] Urobilinogen Auto test strip Ql (U)Ordered By: Dr. Kim on 10-30-2022 Urobilinogen Ql (U) 12 mg/dl Normal [facility] Absolute lymphocyte countOrd ered By: Dr. Tapia on 10-09-2022 Lymphocytes Auto (Unsp spec) [#/Vol] 1.25 10*3/uL 0.83-4.51 [facility] Basophil percentageOrdered B y: Dr. Tapia on 10-09-2022 Basophils/100 WBC (Bld) 0.3 % 0-1 [facility] Bilirubin [Mass/Vol] 0.30 mg/dL 0.20-1.00 [facility] Comment on above: For patients on eltr ombopag therapy, use of Dimension [place] TBIL is not recommended. Chloride [Moles/Vol] 109 mmol/L 98-107 [facility] Eosinophils/100 WBC (Bld) 1.0 % 0-5 [facility] Glucose [Mass/Vol] 117 mg/dL 74-106 [facility] Comment on above: Fasting Glucose resu lt from 100 to 125 mg/dL suggests IMPAIRED HOMEOSTASIS per A.D.A. criteria. Neutrophils (Bld) [#/Vol] 4.4 10*3/uL 2.0-7.7 [facility] Neutrophils/100 WBC (Bld) 71.7 % 47-70 [facility] Potassium [Moles/Vol] 3.5 mmol/L 3.5-5.1 [facility] Protein [Mass/Vol] 6.7 g/dL 6.4-8.2 [facility] Sodium [Moles/Vol] 141 mmol/L 136-145 [facility] WBC (Bld) [#/Vol] 6.2 10*3/uL 4.4-11.0 [facility] Blood erythrocytes count (nu mber/volume)Ordered By: Dr. Tapia on 10-09-2022 RBC (Bld) [#/Vol] 4.28 10*6/uL 4.2-5.4 [facility] Blood hemoglobin measurement (mass/volume)Ordered By: Dr. Tapia on 10-09-2022 Hemoglobin (Bld) [Mass/Vol] 12.9 g/dL 12.0-15.0 [facility] Blood lymphocytes/100 leukoc ytesOrdered By: Dr. Tapia on 10-09-2022 Lymphocytes/100 WBC (Bld) 20.2 % 19-41 [facility] Blood monocytes/100 leukocyt esOrdered By: Dr. Tapia on 10-09-2022 Monocytes/100 WBC (Bld) 6.5 % 0-10 [facility] Blood platelet mean volumeOr dered By: Dr. Tapia on 10-09-2022 Platelet mean volume (Bld) [Entitic vol] 11.6 fL 6.2-12.0 [facility] Determination of erythrocyte mean corpuscular volume (MCV)Ordered By: Dr. Tapia on 10-09-2022 MCV (RBC) [Entitic vol] 91.8 fL 81-99 [facility] Erythrocyte sedimentation ra teOrdered By: Dr. Tapia on 10-09-2022 ESR (Bld) [Velocity] 6 mm/h 0-30 [facility] Hematocrit Auto (Bld) [Volum e fraction]Ordered By: Dr. Tapia on 10-09-2022 Hematocrit (Bld) [Volume fraction] 39.3 % 37-47 [facility] Laboratory - Chemistry and C hemistry - challengeOrdered By: Dr. Tapia on 10-09-2022 ALP [Catalytic activity/Vol] 123 U/L 45-117 [facility] ALT [Catalytic activity/Vol] 25 U/L 13-56 [facility] CO2 [Moles/Vol] 25.0 mmol/L 21.0-32.0 [facility] Globulin (S) [Mass/Vol] 3.2 g/dL 2.2-4.2 [facility] Urea nitrogen/Creatinine [Mass ratio] 27.4 mg/mg 10-20 [facility] Laboratory - Hematology and Cell countsOrdered By: Dr. Tapia on 10-09-2022 Erythrocyte distribution width (RBC) [Entitic vol] 45.1 fL 35.1-43.9 [facility] Erythrocyte distribution width (RBC) [Ratio] 13.5 % 11.6-14.6 [facility] Immature granulocytes/100 WBC (Bld) 0.300 % 0.0-0.9 [facility] Comment on above: IG% - Immature Granu locytes (promyelocytes, myelocytes and metamyelocytes) > 1% indicates that a LEFT SHIFT is Present. MCH (RBC) [Entitic mass] 30.1 pg 27.0-32.0 [facility] Nucleated RBC/100 WBC (Bld) [Ratio] 0 % 0-5 [facility] MCHC Auto (RBC) [Mass/Vol]Or dered By: Dr. Tapia on 10-09-2022 MCHC (RBC) [Mass/Vol] 32.8 g/dL 32-36 [facility] No Panel InformationOrdered By: Dr. Tapia on 10-09-2022 Estimated GFR (MDRD) Amer 130 mL/min >60 [facility] Comment on above: GFR Calc Estimated GFR (MDRD) Non-Af Amer 108 mL/min >60 [facility] Comment on above: Non- GFR Calc Hepatitis B Surface Antigen Non-Reactive Nonreactive [facility] Hepatitis C Antibody Non-Reactive Nonreactive [facility] Comment on above: Non Reactive: < 0.8 Equivocal: >/= 0.8 to < 1.0 Reactive: >/= 1.0The CDC recommends that a reactive/equivocal HCV antibody result be followed up by the HCV Nucleic Acid Amplificationtest ([id number]) Platelets bldOrdered By: Dr. Tapia on 10-09-2022 Platelets (Bld) [#/Vol] 238 10*3/uL 150-450 [facility] Serum cyclic citrullinated p eptide IgG antibody assay (units/volume)Ordered By: Dr. Tapia on 10-09-2022 Cyclic citrullinated peptide IgG Qn 2 units 0-19 [facility] Comment on above: Negative <20 Weak po sitive 20 - 39 Moderate positive 40 - 59 Strong positive >59Performed at: [address] [id number] Director: Dayne Rudolph PhD, Phone: [phone] Serum hepatitis B virus surf abelino antibody IgG detectionOrdered By: Dr. Tapia on 10-09-2022 HBV surface IgG Ql (S) Non-Reactive [facility] Comment on above: Non Reactive: Incons istent with immunity less than <10 mIU/mL Reactive: Consistent with immunity greater than or equal to 10 mIU/mL Serum or plasma C reactive p rotein measurement (mass/volume)Ordered By: Dr. Tapia on 10-09-2022 CRP [Mass/Vol] mg/L 0.0-3.0 [facility] Comment on above: C-Reactive Protein ( CRP) provides useful information for thediagnosis, therapy and monitoring of inflammatory processesand associated diseases. For the evaluation of Relative Riskfor Cardiovascular Disease, a High Sensitivity CRP (HSCRP)should be ordered. Serum or plasma albumin gisel urement (mass/volume)Ordered By: Dr. Tapia on 10-09-2022 Albumin [Mass/Vol] 3.5 g/dL 3.2-5.0 [facility] Serum or plasma albumin/glob ulin mass ratioOrdered By: Dr. Tapia on 10-09-2022 Albumin/Globulin [Mass ratio] 1.1 {ratio} 0.9-2.4 [facility] Serum or plasma calcium gisel urement (mass/volume)Ordered By: Dr. Tapia on 10-09-2022 Calcium [Mass/Vol] 8.7 mg/dL 8.5-10.1 [facility] Serum or plasma creatinine m easurement (mass/volume)Ordered By: Dr. Tapia on 10-09-2022 Creatinine [Mass/Vol] 0.58 mg/dL 0.55-1.02 [facility] Comment on above: The validity of the calculated GFR & GFRAA in patients over 70 years has not been determined. Clinical correlation is essential. Serum or plasma urea nitroge n measurement (mass/volume)Ordered By: Dr. Tapia on 10-09-2022 Urea nitrogen [Mass/Vol] 16 mg/dL 7-18 [facility] Serum rheumatoid factor dete ctionOrdered By: Dr. Tapia on 10-09-2022 Rheumatoid factor Ql (S) 14.0 IU/mL <15 [facility] Thin prep Papanicolaou smear with manual screeningOrdered By: Dr. Tapia on 10-09-2022 Thin prep Papanicolaou smear with manual screening 20 U/L 15-37 [facility] Thin prep Papanicolaou smear with manual screening 7 5-15 [facility] Culture, urineOrdered By: St samantha Kirby on 08-22-2022 Bacteria identified Cx Nom (U) Mixed Gram Pos & Gram Neg Org [facility] Basophil percentageOrdered B y: Mark Kirby on 08-21-2022 Basophil percentage >100 SEEN /hpf 0-5 [facility] Bilirubin Test strip Ql (U)O rdered By: Mark Kirby on 08-21-2022 Bilirubin Ql (U) 1 mg/dL Negative [facility] Comment on above: COLOR OF URINE MAY A FFECT DIPSTICK RESULTS. Culture, urineOrdered By: St samantha Kirby on 08-21-2022 Bacteria identified Cx Nom (U) Mixed Gram Pos & Gram Neg Org [facility] Ketones Test strip Ql (U)Ord ered By: Mark Kirby on 08-21-2022 Ketones Ql (U) Negative Negative [facility] Laboratory - Chemistry and C hemistry - challengeon 08-21-2022 Bilirubin Ql (U) Negative [facility] Glucose Ql (U) Negative [facility] Ketones Ql (U) Negative [facility] pH (U) 6 [pH] [facility] Specific gravity (U) [Rel density] 1.030 [facility] Urobilinogen (U) [Mass/Vol] 0.2893467 mg/dL [facility] Laboratory - Hematology and Cell countson 08-21-2022 Hemoglobin Ql (U) Hemolyzed [facility] Laboratory - Specimen inform ationon 08-21-2022 Clarity (U) Cloudy [facility] Color (U) LASHONDA [facility] Laboratory - Urinalysison Nitrite Ql (U) Negative [facility] Protein Ql (U) 3+ [facility] Mucus LM Ql (Urine sed)Order ed By: Mark Kirby on 08-21-2022 Mucus Ql (Urine sed) 0 SEEN /hpf [facility] Nitrite Test strip Ql (U)Ord ered By: Mark Kirby on 08-21-2022 Nitrite Ql (U) Negative Negative [facility] No Panel Informationon 08-21 Urine Leukocytes Positive [facility] Urine Non-Hemolyzed Blood Large [facility] Protein Test strip Ql (U)Ord ered By: Mark Kirby on 08-21-2022 Protein Ql (U) 100 mg/dl Negative [facility] Squamous epithelial cells de tection in urine sediment by light microscopyOrdered By: Mark Kirby on 08-21-2022 Epithelial cells.squamous LM Ql (Urine sed) 0 SEEN /hpf 5-10 [facility] Urine blood detectionOrdered By: Mark Kirby on 08-21-2022 RBC Ql (U) 250 /ul Negative [facility] RBC Ql (U) 0 SEEN /hpf 0-5 [facility] Urine clarityOrdered By: Iam Kirby on 08-21-2022 Clarity (U) Sl. Cloudy Clear [facility] Urine color determinationOrd ered By: Mark Kirby on 08-21-2022 Color (U) Yellow Yellow [facility] Urine glucose detectionOrder ed By: Mark Kirby on 08-21-2022 Glucose Ql (U) Normal mg/dl Normal [facility] Urine leukocyte esterase det ection by dipstickOrdered By: Mark Kirby on 08-21-2022 Leukocyte esterase Test strip Ql (U) 500 /ul Negative [facility] Urine pHOrdered By: Mark rhodes on 08-21-2022 pH (U) 5.0 [pH] 5.0 - 8.0 [facility] Urine sediment bacteria coun t by microscopy (number/high power field)Ordered By: Mark Kirby on 08-21-2022 Bacteria LM.HPF (Urine sed) [#/Area] 2 /[HPF] None Seen [facility] Urine specific gravity measu rementOrdered By: Mark Kirby on 08-21-2022 Specific gravity (U) [Rel density] 1.025 1.002-1.030 [facility] Urobilinogen Auto test strip Ql (U)Ordered By: Mark Kirby on 08-21-2022 Urobilinogen Ql (U) 1 mg/dl Normal [facility] Absolute lymphocyte countOrd ered By: Dr. Puente on 08-02-2022 Lymphocytes Auto (Unsp spec) [#/Vol] 2.18 10*3/uL 0.83-4.51 [facility] Basophil percentageOrdered B y: Dr. Puente on 08-02-2022 Basophils/100 WBC (Bld) 0.7 % 0-1 [facility] Chloride [Moles/Vol] 110 mmol/L 98-107 [facility] Eosinophils/100 WBC (Bld) 1.3 % 0-5 [facility] Glucose [Mass/Vol] 121 mg/dL 74-106 [facility] Comment on above: Fasting Glucose resu lt from 100 to 125 mg/dL suggests IMPAIRED HOMEOSTASIS per A.D.A. criteria. Neutrophils (Bld) [#/Vol] 3.3 10*3/uL 2.0-7.7 [facility] Neutrophils/100 WBC (Bld) 54.0 % 47-70 [facility] Potassium [Moles/Vol] 3.7 mmol/L 3.5-5.1 [facility] Sodium [Moles/Vol] 143 mmol/L 136-145 [facility] WBC (Bld) [#/Vol] 6.1 10*3/uL 4.4-11.0 [facility] Blood erythrocytes count (nu mber/volume)Ordered By: Dr. Puente on 08-02-2022 RBC (Bld) [#/Vol] 4.13 10*6/uL 4.2-5.4 [facility] Blood hemoglobin measurement (mass/volume)Ordered By: Dr. Puente on 08-02-2022 Hemoglobin (Bld) [Mass/Vol] 12.4 g/dL 12.0-15.0 [facility] Blood lymphocytes/100 leukoc ytesOrdered By: Dr. Puente on 08-02-2022 Lymphocytes/100 WBC (Bld) 35.8 % 19-41 [facility] Blood monocytes/100 leukocyt esOrdered By: Dr. Puente on 08-02-2022 Monocytes/100 WBC (Bld) 8.0 % 0-10 [facility] Blood platelet mean volumeOr dered By: Dr. Puente on 08-02-2022 Platelet mean volume (Bld) [Entitic vol] 11.1 fL 6.2-12.0 [facility] Determination of erythrocyte mean corpuscular volume (MCV)Ordered By: Dr. Puente on 08-02-2022 MCV (RBC) [Entitic vol] 93.0 fL 81-99 [facility] Glucose Glucometer (BldC) [M ass/Vol]Ordered By: Dr. Puente on 08-02-2022 Glucose [Mass/Vol] 115 mg/dL 74-106 [facility] Comment on above: MANAGEMENT OF PATIEN T CARE PER NURSING PROTOCOL Hematocrit Auto (Bld) [Volum e fraction]Ordered By: Dr. Puente on 08-02-2022 Hematocrit (Bld) [Volume fraction] 38.4 % 37-47 [facility] INR in Blood by Coagulation assayOrdered By: Dr. Puente on 08-02-2022 INR Coag (Bld) [Relative time] 1.0 {INR} [facility] Laboratory - Chemistry and C hemistry - challengeOrdered By: Dr. Meadows on 08-02-2022 Free T4 [Mass/Vol] 0.92 ng/dL 0.76-1.46 [facility] Magnesium [Mass/Vol] 1.8 mg/dL 1.6-2.6 [facility] Laboratory - Chemistry and C hemistry - challengeOrdered By: Dr. Puente on 08-02-2022 CO2 [Moles/Vol] 28.0 mmol/L 21.0-32.0 [facility] Urea nitrogen/Creatinine [Mass ratio] 30.2 mg/mg 10-20 [facility] Laboratory - CoagulationOrde red By: Dr. Puente on 08-02-2022 aPTT Coag (Bld) [Time] 29.0 s 24.1-36.2 [facility] PT Coag (PPP) [Time] 12.8 s 11.7-14.9 [facility] Laboratory - Hematology and Cell countsOrdered By: Dr. Puente on 08-02-2022 Erythrocyte distribution width (RBC) [Entitic vol] 48.1 fL 35.1-43.9 [facility] Erythrocyte distribution width (RBC) [Ratio] 14.1 % 11.6-14.6 [facility] Immature granulocytes/100 WBC (Bld) 0.200 % 0.0-0.9 [facility] Comment on above: IG% - Immature Granu locytes (promyelocytes, myelocytes and metamyelocytes) > 1% indicates that a LEFT SHIFT is Present. MCH (RBC) [Entitic mass] 30.0 pg 27.0-32.0 [facility] Nucleated RBC/100 WBC (Bld) [Ratio] 0 % 0-5 [facility] MCHC Auto (RBC) [Mass/Vol]Or dered By: Dr. Puente on 08-02-2022 MCHC (RBC) [Mass/Vol] 32.3 g/dL 32-36 [facility] No Panel InformationOrdered By: Dr. Meadows on 08-02-2022 Troponin I High Sensitivity 70 pg/mL 3.0-54.0 [facility] Comment on above: Please Note: [place] Units and Gender Specific Reference Ranges. For more information see Policy Stat Procedure [place] High Sensitivity Troponin (TNIH) and attachments. Thyroid Stimulating Hormone (TSH) 2.47 uIU/mL 0.358-3.74 [facility] No Panel InformationOrdered By: Dr. Puente on 08-02-2022 Estimated Creatinine Clearance Calc 44.56 ml/min [facility] Estimated GFR (MDRD) Amer 113 mL/min >60 [facility] Comment on above: GFR Calc Estimated GFR (MDRD) Non-Af Amer 93 mL/min >60 [facility] Comment on above: Non- GFR Calc Troponin I High Sensitivity 74 pg/mL 3.0-54.0 [facility] Comment on above: Please Note: [place] Units and Gender Specific Reference Ranges. For more information see Policy Stat Procedure [place] High Sensitivity Troponin (TNIH) and attachments. Platelets bldOrdered By: Dr. Puente on 08-02-2022 Platelets (Bld) [#/Vol] 206 10*3/uL 150-450 [facility] Serum or plasma calcium gisel urement (mass/volume)Ordered By: Dr. Puente on 08-02-2022 Calcium [Mass/Vol] 8.7 mg/dL 8.5-10.1 [facility] Serum or plasma creatinine m easurement (mass/volume)Ordered By: Dr. Puente on 08-02-2022 Creatinine [Mass/Vol] 0.66 mg/dL 0.55-1.02 [facility] Comment on above: The validity of the calculated GFR & GFRAA in patients over 70 years has not been determined. Clinical correlation is essential. Serum or plasma urea nitroge n measurement (mass/volume)Ordered By: Dr. Puente on 08-02-2022 Urea nitrogen [Mass/Vol] 20 mg/dL 7-18 [facility] Thin prep Papanicolaou smear with manual screeningOrdered By: Dr. Puente on 08-02-2022 Thin prep Papanicolaou smear with manual screening 5 5-15 [facility] Whole blood hemoglobin A1c/t otal hemoglobin ratio (mass fraction)Ordered By: Dr. Meadows on 08-02-2022 HbA1c (Bld) [Mass fraction] 5.5 % 3.8-5.6 [facility] Comment on above: Normal < 5.7 % Predi abetic 5.7 - 6.4 % Diabetic >or= 6.5 % Please note range changes. Absolute lymphocyte countOrd ered By: Jovany Weber on 08-01-2022 Lymphocytes Auto (Unsp spec) [#/Vol] 1.97 10*3/uL 0.83-4.51 [facility] Basophil percentageOrdered B y: Jovany Weber on 08-01-2022 Basophil percentage 0 SEEN /hpf 0-5 [facility] Basophils/100 WBC (Bld) 0.6 % 0-1 [facility] Chloride [Moles/Vol] 109 mmol/L 98-107 [facility] Eosinophils/100 WBC (Bld) 0.9 % 0-5 [facility] Glucose [Mass/Vol] 130 mg/dL 74-106 [facility] Comment on above: Fasting Glucose resu lt greater than or equal to 126 mg/dL suggests DIABETES MELLITUS per A.D.A. criteria. Neutrophils (Bld) [#/Vol] 4.3 10*3/uL 2.0-7.7 [facility] Neutrophils/100 WBC (Bld) 62.3 % 47-70 [facility] Potassium [Moles/Vol] 3.5 mmol/L 3.5-5.1 [facility] Sodium [Moles/Vol] 142 mmol/L 136-145 [facility] WBC (Bld) [#/Vol] 6.9 10*3/uL 4.4-11.0 [facility] Bilirubin Test strip Ql (U)O rdered By: Jovany Weber on 08-01-2022 Bilirubin Ql (U) Negative Negative [facility] Blood erythrocytes count (nu mber/volume)Ordered By: Jovany Weber on 08-01-2022 RBC (Bld) [#/Vol] 4.27 10*6/uL 4.2-5.4 [facility] Blood hemoglobin measurement (mass/volume)Ordered By: Jovany Weber on 08-01-2022 Hemoglobin (Bld) [Mass/Vol] 12.6 g/dL 12.0-15.0 [facility] Blood lymphocytes/100 leukoc ytesOrdered By: Jovany Weber on 08-01-2022 Lymphocytes/100 WBC (Bld) 28.7 % 19-41 [facility] Blood monocytes/100 leukocyt esOrdered By: Jovany Weber on 08-01-2022 Monocytes/100 WBC (Bld) 7.1 % 0-10 [facility] Blood platelet mean volumeOr dered By: Jovany Weber on 08-01-2022 Platelet mean volume (Bld) [Entitic vol] 11.4 fL 6.2-12.0 [facility] Determination of erythrocyte mean corpuscular volume (MCV)Ordered By: Jovany Weber on 08-01-2022 MCV (RBC) [Entitic vol] 93.4 fL 81-99 [facility] Hematocrit Auto (Bld) [Volum e fraction]Ordered By: Jovany Weber on 08-01-2022 Hematocrit (Bld) [Volume fraction] 39.9 % 37-47 [facility] INR in Blood by Coagulation assayOrdered By: Jovany Weber on 08-01-2022 INR Coag (Bld) [Relative time] 1.0 {INR} [facility] Ketones Test strip Ql (U)Ord ered By: Jovany Weber on 08-01-2022 Ketones Ql (U) Negative Negative [facility] Laboratory - Chemistry and C hemistry - challengeOrdered By: Jovany Weber on 08-01-2022 CO2 [Moles/Vol] 28.0 mmol/L 21.0-32.0 [facility] Urea nitrogen/Creatinine [Mass ratio] 31.7 mg/mg 10-20 [facility] Laboratory - CoagulationOrde red By: Jovany Weber on 08-01-2022 PT Coag (PPP) [Time] 12.8 s 11.7-14.9 [facility] Laboratory - Hematology and Cell countsOrdered By: Jovany Weber on 08-01-2022 Erythrocyte distribution width (RBC) [Entitic vol] 48.6 fL 35.1-43.9 [facility] Erythrocyte distribution width (RBC) [Ratio] 14.2 % 11.6-14.6 [facility] Immature granulocytes/100 WBC (Bld) 0.400 % 0.0-0.9 [facility] Comment on above: IG% - Immature Granu locytes (promyelocytes, myelocytes and metamyelocytes) > 1% indicates that a LEFT SHIFT is Present. MCH (RBC) [Entitic mass] 29.5 pg 27.0-32.0 [facility] Nucleated RBC/100 WBC (Bld) [Ratio] 0 % 0-5 [facility] MCHC Auto (RBC) [Mass/Vol]Or dered By: Jovany Weber on 08-01-2022 MCHC (RBC) [Mass/Vol] 31.6 g/dL 32-36 [facility] Mucus LM Ql (Urine sed)Order ed By: Jovany Weber on 08-01-2022 Mucus Ql (Urine sed) 0 SEEN /hpf [facility] Nitrite Test strip Ql (U)Ord ered By: Jovany Weber on 08-01-2022 Nitrite Ql (U) Negative Negative [facility] No Panel InformationOrdered By: Jovany Weber on 08-01-2022 Estimated GFR (MDRD) Amer 107 mL/min >60 [facility] Comment on above: GFR Calc Estimated GFR (MDRD) Non-Af Amer 88 mL/min >60 [facility] Comment on above: Non- GFR Calc Platelets bldOrdered By: Suzanna Weber on 08-01-2022 Platelets (Bld) [#/Vol] 222 10*3/uL 150-450 [facility] Protein Test strip Ql (U)Ord ered By: Jovany Weber on 08-01-2022 Protein Ql (U) 15 mg/dl Negative [facility] Serum or plasma calcium gisel urement (mass/volume)Ordered By: Jovany Weber on 08-01-2022 Calcium [Mass/Vol] 9.0 mg/dL 8.5-10.1 [facility] Serum or plasma creatinine m easurement (mass/volume)Ordered By: Jovany Weber on 08-01-2022 Creatinine [Mass/Vol] 0.70 mg/dL 0.55-1.02 [facility] Comment on above: The validity of the calculated GFR & GFRAA in patients over 70 years has not been determined. Clinical correlation is essential. Serum or plasma urea nitroge n measurement (mass/volume)Ordered By: Jovany Weber on 08-01-2022 Urea nitrogen [Mass/Vol] 22 mg/dL 7-18 [facility] Squamous epithelial cells de tection in urine sediment by light microscopyOrdered By: Jovany Weber on 08-01-2022 Epithelial cells.squamous LM Ql (Urine sed) 0 SEEN /hpf 5-10 [facility] Thin prep Papanicolaou smear with manual screeningOrdered By: Jovany Weber on 08-01-2022 Thin prep Papanicolaou smear with manual screening 5 5-15 [facility] Urine blood detectionOrdered By: Jovany Weber on 08-01-2022 RBC Ql (U) Negative Negative [facility] RBC Ql (U) 0 SEEN /hpf 0-5 [facility] Urine clarityOrdered By: Suzanna Weber on 08-01-2022 Clarity (U) Clear Clear [facility] Urine color determinationOrd ered By: Jovany Weber on 08-01-2022 Color (U) Yellow Yellow [facility] Urine glucose detectionOrder ed By: Jovany Weber on 08-01-2022 Glucose Ql (U) Normal mg/dl Normal [facility] Urine leukocyte esterase det ection by dipstickOrdered By: Jovany Weber on 08-01-2022 Leukocyte esterase Test strip Ql (U) Negative Negative [facility] Urine pHOrdered By: Jovany Hartman er on 08-01-2022 pH (U) 6.0 [pH] 5.0 - 8.0 [facility] Urine sediment bacteria coun t by microscopy (number/high power field)Ordered By: Jovany Weber on 08-01-2022 Bacteria LM.HPF (Urine sed) [#/Area] 0 /[HPF] None Seen [facility] Urine specific gravity measu rementOrdered By: Jovany Weber on 08-01-2022 Specific gravity (U) [Rel density] 1.025 1.002-1.030 [facility] Urobilinogen Auto test strip Ql (U)Ordered By: Jovany Weber on 08-01-2022 Urobilinogen Ql (U) Normal mg/dl Normal [facility] Culture, urineOrdered By: St samantha Kirby on 06-07-2022 Bacteria identified Cx Nom (U) Presumptive E. coli [facility] Basophil percentageOrdered B y: Mark Kirby on 06-05-2022 Basophil percentage >100 SEEN /hpf 0-5 [facility] Bilirubin Test strip Ql (U)O rdered By: Mark Kirby on 06-05-2022 Bilirubin Ql (U) Negative Negative [facility] Ketones Test strip Ql (U)Ord ered By: Mark Kirby on 06-05-2022 Ketones Ql (U) Negative Negative [facility] Laboratory - Chemistry and C hemistry - challengeon 06-05-2022 Bilirubin Ql (U) Negative [facility] Glucose Ql (U) Negative [facility] Ketones Ql (U) Negative [facility] pH (U) 6.5 [pH] [facility] Specific gravity (U) [Rel density] 1.020 [facility] Urobilinogen (U) [Mass/Vol] Negative [facility] Laboratory - Hematology and Cell countson 06-05-2022 Hemoglobin Ql (U) Hemolyzed [facility] Laboratory - Specimen inform ationon 06-05-2022 Clarity (U) Cloudy [facility] Color (U) LASHONDA [facility] Laboratory - Urinalysison Nitrite Ql (U) Negative [facility] Protein Ql (U) Negative [facility] Mucus LM Ql (Urine sed)Order ed By: Mark Kirby on 06-05-2022 Mucus Ql (Urine sed) 0 SEEN /hpf [facility] Nitrite Test strip Ql (U)Ord ered By: Mark Kirby on 06-05-2022 Nitrite Ql (U) Negative Negative [facility] No Panel Informationon 06-05 Urine Leukocytes Positive [facility] Urine Non-Hemolyzed Blood Large [facility] Protein Test strip Ql (U)Ord ered By: Mark Kirby on 06-05-2022 Protein Ql (U) 30 mg/dl Negative [facility] Squamous epithelial cells de tection in urine sediment by light microscopyOrdered By: Mark Kirby on 06-05-2022 Epithelial cells.squamous LM Ql (Urine sed) 0 SEEN /hpf 5-10 [facility] Urine blood detectionOrdered By: Mark Kirby on 06-05-2022 RBC Ql (U) 250 /ul Negative [facility] RBC Ql (U) 5-10 SEEN /hpf 0-5 [facility] Urine clarityOrdered By: Iam Kirby on 06-05-2022 Clarity (U) Cloudy Clear [facility] Urine color determinationOrd ered By: Mark Kirby on 06-05-2022 Color (U) Yellow Yellow [facility] Urine glucose detectionOrder ed By: Mark Kirby on 06-05-2022 Glucose Ql (U) Normal mg/dl Normal [facility] Urine leukocyte esterase det ection by dipstickOrdered By: Mark Kirby on 06-05-2022 Leukocyte esterase Test strip Ql (U) 500 /ul Negative [facility] Urine pHOrdered By: Mark rhodes on 06-05-2022 pH (U) 6.0 [pH] 5.0 - 8.0 [facility] Urine sediment bacteria coun t by microscopy (number/high power field)Ordered By: Mark Kirby on 06-05-2022 Bacteria LM.HPF (Urine sed) [#/Area] 0 /[HPF] None Seen [facility] Urine specific gravity measu rementOrdered By: Mark Kirby on 06-05-2022 Specific gravity (U) [Rel density] 1.015 1.002-1.030 [facility] Urobilinogen Auto test strip Ql (U)Ordered By: Mark Kirby on 06-05-2022 Urobilinogen Ql (U) Normal mg/dl Normal [facility] Laboratory - Microbiology an d Antimicrobial susceptibilityon 05-14-2022 SARS-CoV-2 (COVID-19) RNA ISAMAR+probe Ql (Unsp spec) Not detected [facility] No Panel Informationon 05-14 Influenza Types A,B Rapid (Clinic) Detected [facility] Absolute lymphocyte countOrd ered By: Landry Rome on 04-24-2022 Lymphocytes Auto (Unsp spec) [#/Vol] 1.32 10*3/uL 0.83-4.51 [facility] Basophil percentageOrdered B y: Landry Rome on 04-24-2022 Basophils/100 WBC (Bld) 0.5 % 0-1 [facility] Eosinophils/100 WBC (Bld) 1.3 % 0-5 [facility] Neutrophils (Bld) [#/Vol] 4.3 10*3/uL 2.0-7.7 [facility] Neutrophils/100 WBC (Bld) 70.7 % 47-70 [facility] WBC (Bld) [#/Vol] 6.1 10*3/uL 4.4-11.0 [facility] Blood erythrocytes count (nu mber/volume)Ordered By: Landry Rome on 04-24-2022 RBC (Bld) [#/Vol] 4.44 10*6/uL 4.2-5.4 [facility] Blood hemoglobin measurement (mass/volume)Ordered By: Landry Rome on 04-24-2022 Hemoglobin (Bld) [Mass/Vol] 13.1 g/dL 12.0-15.0 [facility] Blood lymphocytes/100 leukoc ytesOrdered By: Landry Rome on 04-24-2022 Lymphocytes/100 WBC (Bld) 21.6 % 19-41 [facility] Blood monocytes/100 leukocyt esOrdered By: Landry Rome on 04-24-2022 Monocytes/100 WBC (Bld) 5.6 % 0-10 [facility] Blood platelet mean volumeOr dered By: Landry Rome on 04-24-2022 Platelet mean volume (Bld) [Entitic vol] 10.9 fL 6.2-12.0 [facility] Determination of erythrocyte mean corpuscular volume (MCV)Ordered By: Landry Rome on 04-24-2022 MCV (RBC) [Entitic vol] 89.4 fL 81-99 [facility] Erythrocyte sedimentation ra teOrdered By: Landry Rome on 04-24-2022 ESR (Bld) [Velocity] 6 mm/h 0-30 [facility] Hematocrit Auto (Bld) [Volum e fraction]Ordered By: Landry Rome on 04-24-2022 Hematocrit (Bld) [Volume fraction] 39.7 % 37-47 [facility] Laboratory - Hematology and Cell countsOrdered By: Landry Rome on 04-24-2022 Erythrocyte distribution width (RBC) [Entitic vol] 45.5 fL 35.1-43.9 [facility] Erythrocyte distribution width (RBC) [Ratio] 14.0 % 11.6-14.6 [facility] Immature granulocytes/100 WBC (Bld) 0.300 % 0.0-0.9 [facility] Comment on above: IG% - Immature Granu locytes (promyelocytes, myelocytes and metamyelocytes) > 1% indicates that a LEFT SHIFT is Present. MCH (RBC) [Entitic mass] 29.5 pg 27.0-32.0 [facility] Nucleated RBC/100 WBC (Bld) [Ratio] 0 % 0-5 [facility] MCHC Auto (RBC) [Mass/Vol]Or dered By: Landry Rome on 04-24-2022 MCHC (RBC) [Mass/Vol] 33.0 g/dL 32-36 [facility] Platelets bldOrdered By: Padilla Rome on 04-24-2022 Platelets (Bld) [#/Vol] 221 10*3/uL 150-450 [facility] Serum or plasma C reactive p rotein measurement (mass/volume)Ordered By: Landry Rome on 04-24-2022 CRP [Mass/Vol] mg/L 0.0-3.0 [facility] Comment on above: C-Reactive Protein ( CRP) provides useful information for thediagnosis, therapy and monitoring of inflammatory processesand associated diseases. For the evaluation of Relative Riskfor Cardiovascular Disease, a High Sensitivity CRP (HSCRP)should be ordered. Laboratory - Microbiology an d Antimicrobial susceptibilityon 03-10-2022 SARS-CoV-2 (COVID-19) RNA ISAMAR+probe Ql (Unsp spec) Detected [facility] No Panel Informationon 03-10 Influenza Types A,B Rapid (Clinic) Not detected [facility] Basophil percentageon 2021 Basophil percentage 10-25 SEEN /hpf [facility] Work Phone: Bilirubin Test strip Ql (U)o n 09-24-2021 Bilirubin Ql (U) Negative Negative [facility] Work Phone: Culture, urineon 09-24-2021 Bacteria identified Cx Nom (U) Escherichia coli [facility] Work Phone: Bacteria identified Cx Nom (U) Enterobacter aerogenes [facility] Work Phone: Ketones Test strip Ql (U)on 09-24-2021 Ketones Ql (U) 5 mg/dl Negative [facility] Work Phone: Laboratory - Chemistry and C hemistry - challengeon 09-24-2021 Bilirubin Ql (U) Negative [facility] Work Phone: Glucose Ql (U) Negative [facility] Work Phone: Ketones Ql (U) Small (15+) [facility] Work Phone: pH (U) 7.0 [pH] [facility] Work Phone: Specific gravity (U) [Rel density] 1.015 [facility] Work Phone: Urobilinogen (U) [Mass/Vol] Negative [facility] Work Phone: Laboratory - Hematology and Cell countson 09-24-2021 Hemoglobin Ql (U) Trace [facility] Work Phone: Laboratory - Specimen inform ationon 09-24-2021 Clarity (U) Cloudy [facility] Work Phone: Color (U) YELLOW [facility] Work Phone: Laboratory - Urinalysison Nitrite Ql (U) Negative [facility] Work Phone: Protein Ql (U) Negative [facility] [facility] Work [facility]: Mucus LM Ql (Urine sed)on Mucus Ql (Urine sed) 0 SEEN /hpf [facility] Work Phone: Nitrite Test strip Ql (U)on 09-24-2021 Nitrite Ql (U) Negative Negative [facility] Work Phone: No Panel Informationon 09-24 Urine Leukocytes Positive [facility] Work Phone: Urine Non-Hemolyzed Blood Non-Hemolyzed [facility] Work Phone: Protein Test strip Ql (U)on 09-24-2021 Protein Ql (U) 15 mg/dl Negative [facility] Work Phone: Squamous epithelial cells de tection in urine sediment by light microscopyon 09-24-2021 Epithelial cells.squamous LM Ql (Urine sed) 0 SEEN /hpf [facility] Work Phone: Urine blood detectionon - RBC Ql (U) 10 /ul Negative [facility] Work Phone: RBC Ql (U) 0 SEEN /hpf [facility] Work Phone: Urine clarityon 09-24-2021 Clarity (U) Clear Clear [facility] Work Phone: Urine color determinationon 09-24-2021 Color (U) Yellow Yellow [facility] Work Phone: Urine glucose detectionon Glucose Ql (U) Normal mg/dl Normal [facility] Work Phone: Urine leukocyte esterase det ection by dipstickon 09-24-2021 Leukocyte esterase Test strip Ql (U) 500 /ul Negative [facility] Work Phone: Urine pHon 09-24-2021 pH (U) 6.5 [pH] [facility] Work Phone: Urine sediment bacteria coun t by microscopy (number/high power field)on 09-24-2021 Bacteria LM.HPF (Urine sed) [#/Area] 0 /[HPF] None Seen [facility] Work Phone: Urine specific gravity measu rementon 09-24-2021 Specific gravity (U) [Rel density] 1.015 [facility] Work Phone: Urobilinogen Auto test strip Ql (U)on 09-24-2021 Urobilinogen Ql (U) Normal mg/dl Normal [facility] Work Phone: CT HEAD OR BRAIN W/O CONTRAS Ton [...] 08/14/2021 10:02:09 AM Ordering Provider: SHASHI Posadas [facility] ([place]) CREATININE JACKIEDon 07-26-2021 Creatinine [Mass/Vol] 0.65 mg/dL Normal 0.58-0.96 [facility] Comment on above: Order Comment: Speci men Type: BLOOD SPECIMEN Ordering Facility: [facility] Address: [address] [place] [address] Performed By: #### C RET1 #### [facility] CLIA [id number] [address] [place] [address] [place] ESTIMATED GLOMERULAR FILTRATION RATE 95 mL/min/1.73m??? Normal >=60 [facility] Comment on above: Order Comment: Speci men Type: BLOOD SPECIMEN Ordering Facility: [facility] Address: [address] [place] [id number] Result Comment: Alcira mated Glomerular Filtration Rate [...] GFR. Performed By: #### C RET1 #### [facility] CLIA [id number] [address] [place] [address] [facility] CT ABD/PEL W IVCONon 022 CT ABD/PEL W IVCON * * *Final Report* * * DATE OF EXAM: Jul 26 2021 10:32AM [facility] 0530 - CT ABD/PEL W IVCON [...] Tissues: No significant finding. Lower thorax: Unremarkable. Quality Process Lead (topogram) images: No significant findings. IMPRESSION: No acute abnormality involving the abdomen or pelvis. Small right-sided renal cysts. Right adnexal structure likely representing the right ovary with cystic component superiorly consistent with small ovarian cyst or follicle. Manager Recruiting: [facility] Transcribe Date/Time: Jul 26 2021 1:12P Dictated by : RANCHO GERMAIN MD This examination was interpreted and the report reviewed and electronically signed by: RANCHO GERMAIN MD on Jul 26 2021 1:23PM EST [id number] Normal [facility] FEMALE PELVIS TRANSABD LT Don 07-19-2021 FEMALE PELVIS TRANSABD LTD * * *Final Report* * * DATE OF EXAM: Jul 19 2021 9:09AM [facility] 1059 - FEMALE PELVIS TRANSABD LTD / PROCEDURE REASON: [...] a CT with oral and intravenous contrast. Manager Recruiting: [facility] Transcribe Date/Time: Jul 19 2021 4:50P Dictated by : JOVANY KC MD This examination was interpreted and the report reviewed and electronically signed by: JOVANY KC MD on Jul 19 2021 4:53PM EST [id number] Normal [facility] US FEMALE PELVIS TRANSVAGon 07-19-2021 US FEMALE PELVIS TRANSVAG * * *Final Report* [...] a CT with oral and intravenous contrast. Manager Recruiting: [facility] Transcribe Date/Time: Jul 19 2021 4:50P Dictated by : JOVANY KC MD This examination was interpreted and the report reviewed and electronically signed by: JOVANY KC MD on Jul 19 2021 4:53PM EST [id number] Normal [facility] Sam 07-17-2021 STEVEN Telephone (OBGYWM) -- VALERY DEVINE ([id number]) 1950 F Date Time Provider Department 07/17/21 TRICIA NIEVES During your visit today, we recorded the following information about you: Althea Silviahenrietta, TRU 07/17/2021 2:[address] an US FEMALE PELVIS TRANSVAG order, only have limited transabd pelvic orders in [facility] currently. Pt is scheduled on . Thanks, Althea Nolasco [facility] Tricia Nieves MD 07/17/2021 2:44 PM Signed [...] abdominal pain [R10.30] Order(s):US FEMALE PELVIS TRANSVAG [[id number]] Order #: [id number] FUTURE PELVIC US WHI [[id number]] Reflex Order#: [id number] (Ord#:[id number])Qty: 1 CT ABD/PEL W IVCON [[id number]] Reflex Order#: [id number] (Ord#:[id number]) FUTURE iv contrast (will be provided with [...] EachRfl: 0 CREATININE BLD [SQCRET] Reflex Order#: [id number] (Ord#:[id number]) FUTURE Prescriptions as of 07/20/2021 - iv [...] Encounter Status:Closed by TRICIA NIEVES on 07/17/21 Normal [facility] CNOVon 07-16-2021 CNOV Office Visit (OBGYWM ) -- VALERY DEVINE ([id number]) 1950 F Date Time Provider Department 07/16/21 9:00 AM TRICIA NIEVES OBSANDRAWM During your visit today, we recorded the following information about you: Blood pressure Weight Height 112/64 76.2 kg 1.638 m Tricia Nieves MD 07/16/2021 9:25 AM Signed Valerydavy Devine is a 71 year old female who [...] L3 SAB1 IAB0 Ectopic0 Multiple0 Live Births3 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 History LMP: Postmenopausal Age at Menarche: Age at First : Age at Menopause: 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 History Comments: Sexual Activity: Not Asked; No partner data on record Contraception: No contraception data on record PAST MEDICAL HISTORY Diagnosis Date - DDD (degenerative disc disease) - Kidney stone - Lung cancer (HCC) PAST SURGICAL HISTORY Procedure Laterality Date - ARTHRP KNE CONDYLEANDPLATU MEDIALANDLAT COMPARTMENTS Left 08/08/2019 - BACK SURGERY HX 2013 low back - BUNIONECTOMY, [place]-TYPE right x2 [...] external genitalia normal, normal Bartholin's glands, urethra, Mogollon's glands, no vulvar lesions, no cervical lesions, [...] spasm [M62.838] Order(s): FEMALE PELVIS TRANSABD LTD [[id number]] Order #: [id number] FUTURE FEMALE PELVIS TRANSABD LTD [[id number]] Order #: [id number] FUTURE CONSULT TO PHYSICAL THERAPY [9032] Order #: [id number]: 1 FUTURE Prescriptions as of 07/16/2021 - atorvastatin (LIPITOR) 10 mg tab (more content not included)... Normal [facility] No Panel Informationon 06-18 POC SARS CoV-2 Antigen Negative [facility] Work Phone: XR CHEST 2 VIEWSon 1 XR CHEST [...] Sign Date: 09/08/2020 4:34:39 PM Ordering Provider:Shashi Posadas [facility] ([place]) Vital Signs Date Time Vital Sign Value Performing Clinician Satish duke 01-19-2025 15:58-0400 Body temperature 98.1 [degF] Dr. Bean Bettencourt DO Work Phone: [facility] 01-19-2025 15:58-0400 Heart rate 70 /min Dr. Bean Bettencourt DO Work Phone: [facility] 01-19-2025 15:58-0400 Respiratory rate 16 /min Dr. Bean Bettencourt DO Work Phone: [facility] 01-19-2025 15:58-0400 SaO2% (BldA) [Mass fraction] 97 % Dr. Bean Bettencourt DO Work Phone: [facility] 01-19-2025 08:23-0400 Body height 162.[address] Bean Bettencourt DO Work Phone: [facility] 01-19-2025 08:23-0400 Body mass index (BMI) [Ratio] 27.6 kg/m2 Dr. Bean Bettencourt DO Work Phone: [facility] 01-19-2025 08:23-0400 Body temperature 96.8 [degF] Dr. Bean Bettencourt DO Work Phone: [facility] 01-19-2025 08:23-0400 Body weight 72.[address] Bean Bettencourt DO Work Phone: [facility] 01-19-2025 08:23-0400 Diastolic blood pressure 84 mm[Hg] Dr. Bean Bettencourt DO Work Phone: [facility] 01-19-2025 08:23-0400 Heart rate 61 /min Dr. Bean Bettencourt DO Work Phone: [facility] 01-19-2025 08:23-0400 Respiratory rate 16 /min Dr. Bean Bettencourt DO Work Phone: [facility] 01-19-2025 08:23-0400 Systolic blood pressure 138 mm[Hg] Dr. Bean Bettencourt DO Work Phone: [facility] 01-14-2025 12:11-0400 Body height 162.[address] Bean Bettencourt DO Work Phone: [facility] 01-14-2025 12:11-0400 Body mass index (BMI) [Ratio] 28.8 kg/m2 Dr. Bean Bettencourt DO Work Phone: [facility] 01-14-2025 12:11-0400 Body temperature 97.7 [degF] Dr. Bean Bettencourt DO Work Phone: [facility] 01-14-2025 12:11-0400 Body weight 76.[address] Bean Bettencourt DO Work Phone: [facility] 01-14-2025 12:11-0400 Diastolic blood pressure 84 mm[Hg] Dr. Bean Bettencourt DO Work Phone: [facility] 01-14-2025 12:11-0400 Heart rate 67 /min Dr. Bean Bettencourt DO Work Phone: [facility] 01-14-2025 12:11-0400 SaO2% (BldA) [Mass fraction] 97 % Dr. Bean Bettencourt DO Work Phone: [facility] 01-14-2025 12:11-0400 Systolic blood pressure 138 mm[Hg] Dr. Bean Bettencourt DO Work Phone: [facility] 12-21-2024 15:02-0400 Body height 162.[address] Bean Bettencourt DO Work Phone: [facility] 12-21-2024 15:02-0400 Body mass index (BMI) [Ratio] 28.1 kg/m2 Dr. Bean Bettencourt DO Work Phone: [facility] 12-21-2024 15:02-0400 Body temperature 96.2 [degF] Dr. Bean Bettencourt DO Work Phone: [facility] 12-21-2024 15:02-0400 Body weight 74.[address] Bean Bettencourt DO Work Phone: [facility] 12-21-2024 15:02-0400 Diastolic blood pressure 64 mm[Hg] Dr. Bean Bettencourt DO Work Phone: [facility] 12-21-2024 15:02-0400 Heart rate 81 /min Dr. Bean Bettencourt DO Work Phone: [facility] 12-21-2024 15:02-0400 Respiratory rate 16 /min Dr. Bean Bettencourt DO Work Phone: [facility] 12-21-2024 15:02-0400 SaO2% (BldA) [Mass fraction] 96 % Dr. Bean Bettencourt DO Work Phone: [facility] 12-21-2024 15:02-0400 Systolic blood pressure 98 mm[Hg] Dr. Bean Bettencourt DO Work Phone: [facility] 12-12-2024 13:12-0400 Body height 162.[address] Bean Bettencourt DO Work Phone: [facility] 12-12-2024 13:12-0400 Body mass index (BMI) [Ratio] 28.9 kg/m2 Dr. Bean Bettencourt DO Work Phone: [facility] 12-12-2024 13:12-0400 Body weight 76.[address] Bena Bettencourt DO Work Phone: [facility] 12-12-2024 13:12-0400 Diastolic blood pressure 80 mm[Hg] Dr. Bean Bettencourt DO Work Phone: [facility] 12-12-2024 13:12-0400 Heart rate 64 /min Dr. Bean Bettencourt DO Work Phone: [facility] 12-12-2024 13:12-0400 Respiratory rate 16 /min Dr. Bean Bettencourt DO Work Phone: [facility] 12-12-2024 13:12-0400 SaO2% (BldA) [Mass fraction] 99 % Dr. Bean Bettencourt DO Work Phone: [facility] 12-12-2024 13:12-0400 Systolic blood pressure 124 mm[Hg] Dr. Bean Bettencourt DO Work Phone: [facility] 12-07-2024 13:51-0400 Body temperature 97.5 [degF] Dr. Bean Bettencourt DO Work Phone: [facility] 12-07-2024 13:51-0400 Diastolic blood pressure 70 mm[Hg] Dr. Bean Bettencourt DO Work Phone: [facility] 12-07-2024 13:51-0400 Heart rate 86 /min Dr. Bean Bettencourt DO Work Phone: [facility] 12-07-2024 13:51-0400 Respiratory rate 18 /min Dr. Bean Bettencourt DO Work Phone: [facility] 12-07-2024 13:51-0400 SaO2% (BldA) [Mass fraction] 96 % Dr. Bean Bettencourt DO Work Phone: [facility] 12-07-2024 13:51-0400 Systolic blood pressure 120 mm[Hg] Dr. Bean Bettencourt DO Work Phone: [facility] 12-01-2024 10:44-0400 Body temperature 98.6 [degF] Dr. Bean Bettencourt DO Work Phone: [facility] 12-01-2024 10:44-0400 Diastolic blood pressure 68 mm[Hg] Dr. Bean Bettencourt DO Work Phone: [facility] 12-01-2024 10:44-0400 Heart rate 60 /min Dr. Bean Bettencourt DO Work Phone: [facility] 12-01-2024 10:44-0400 Respiratory rate 16 /min Dr. Bean Bettencourt DO Work Phone: [facility] 12-01-2024 10:44-0400 SaO2% (BldA) [Mass fraction] 97 % Dr. Bean Bettencourt DO Work Phone: [facility] 12-01-2024 10:44-0400 Systolic blood pressure 102 mm[Hg] Dr. Bean Bettencourt DO Work Phone: [facility] 11-15-2024 12:01-0400 Body height 162.[address] Bean Bettencourt DO Work Phone: [facility] 11-15-2024 12:01-0400 Body mass index (BMI) [Ratio] 27.9 kg/m2 Dr. Bean Bettencourt DO Work Phone: [facility] 11-15-2024 12:01-0400 Body temperature 97.1 [degF] Dr. Bean Bettencourt DO Work Phone: [facility] 11-15-2024 12:01-0400 Body weight 73.[address] Bean Bettencourt DO Work Phone: [facility] 11-15-2024 12:01-0400 Diastolic blood pressure 75 mm[Hg] Dr. Bean Bettencourt DO Work Phone: [facility] 11-15-2024 12:01-0400 Heart rate 76 /min Dr. Bean Bettencourt DO Work Phone: [facility] 11-15-2024 12:01-0400 Respiratory rate 16 /min Dr. Bean Bettencourt DO Work Phone: [facility] 11-15-2024 12:01-0400 SaO2% (BldA) [Mass fraction] 95 % Dr. Bean Bettencourt DO Work Phone: [facility] 11-15-2024 12:01-0400 Systolic blood pressure 112 mm[Hg] Dr. Bean Bettencourt DO Work Phone: [facility] 11-08-2024 15:14-0400 Body height 162.[address] Bean Bettencourt DO Work Phone: [facility] 11-08-2024 15:14-0400 Body mass index (BMI) [Ratio] 27.8 kg/m2 Dr. Bean Bettencourt DO Work Phone: [facility] 11-08-2024 15:14-0400 Body temperature 97.9 [degF] Dr. Bean Bettencourt DO Work Phone: [facility] 11-08-2024 15:14-0400 Body weight 73.[address] Bean Bettencourt DO Work Phone: [facility] 11-08-2024 15:14-0400 Diastolic blood pressure 69 mm[Hg] Dr. Bean Bettencourt DO Work Phone: [facility] 11-08-2024 15:14-0400 Heart rate 84 /min Dr. Bean Bettencourt DO Work Phone: [facility] 11-08-2024 15:14-0400 Respiratory rate 16 /min Dr. Bean Bettencourt DO Work Phone: [facility] 11-08-2024 15:14-0400 SaO2% (BldA) [Mass fraction] 95 % Dr. Bean Bettencourt DO Work Phone: [facility] 11-08-2024 15:14-0400 Systolic blood pressure 102 mm[Hg] Dr. Bean Bettencourt DO Work Phone: [facility] 11-04-2024 08:20-0400 Body temperature 98.6 [degF] Dr. Bean Bettencourt DO Work Phone: [facility] 11-04-2024 08:20-0400 Diastolic blood pressure 68 mm[Hg] Dr. Bean Bettencourt DO Work Phone: [facility] 11-04-2024 08:20-0400 Heart rate 85 /min Dr. Bean Bettencourt DO Work Phone: [facility] 11-04-2024 08:20-0400 SaO2% (BldA) [Mass fraction] 98 % Dr. Bean Bettencourt DO Work Phone: [facility] 11-04-2024 08:20-0400 Systolic blood pressure 102 mm[Hg] Dr. Bean Bettencourt DO Work Phone: [facility] 09-10-2024 09:41-0400 Body height 162.[address] Bean Bettencourt DO Work Phone: [facility] 09-10-2024 09:41-0400 Body mass index (BMI) [Ratio] 28.7 kg/m2 Dr. Bean Bettencourt DO Work Phone: [facility] 09-10-2024 09:41-0400 Body weight 75.[address] Bean Bettencourt DO Work Phone: [facility] 08-27-2024 07:32-0400 Body mass index (BMI) [Ratio] 28.3 kg/m2 Dr. Bean Bettencourt DO Work Phone: [facility] 08-27-2024 07:32-0400 Body temperature 96.2 [degF] Dr. Bean Bettencourt DO Work Phone: [facility] 08-27-2024 07:32-0400 Body weight 74.[address] Bean Bettencourt DO Work Phone: [facility] 08-27-2024 07:32-0400 Diastolic blood pressure 78 mm[Hg] Dr. Bean Bettencourt DO Work Phone: [facility] 08-27-2024 07:32-0400 Heart rate 12 /min Dr. Bean Bettencourt DO Work Phone: [facility] 08-27-2024 07:32-0400 Respiratory rate 16 /min Dr. Bean Bettencourt DO Work Phone: [facility] 08-27-2024 07:32-0400 SaO2% (BldA) [Mass fraction] 95 % Dr. Bean Bettencourt DO Work Phone: [facility] 08-27-2024 07:32-0400 Systolic blood pressure 108 mm[Hg] Dr. Bean Bettencourt DO Work Phone: [facility] 08-22-2024 12:45-0400 Body temperature 97.6 [degF] Dr. Bean Bettencourt DO Work Phone: [facility] 08-22-2024 12:45-0400 Diastolic blood pressure 68 mm[Hg] Dr. Bean Bettencourt DO Work Phone: [facility] 08-22-2024 12:45-0400 Heart rate 63 /min Dr. Bean Bettencourt DO Work Phone: [facility] 08-22-2024 12:45-0400 Respiratory rate 11 /min Dr. Bean Bettencourt DO Work Phone: [facility] 08-22-2024 12:45-0400 SaO2% (BldA) [Mass fraction] 98 % Dr. Bean Bettencourt DO Work Phone: [facility] 08-22-2024 12:45-0400 Systolic blood pressure 130 mm[Hg] Dr. Bean Bettencourt DO Work Phone: [facility] 08-22-2024 08:46-0400 Body height 162.[address] Bean Bettencourt DO Work Phone: [facility] 08-22-2024 08:46-0400 Body mass index (BMI) [Ratio] 28.2 kg/m2 Dr. Bean Bettencourt DO Work Phone: [facility] 08-22-2024 08:46-0400 Body weight 74.[address] Bean Bettencourt DO Work Phone: [facility] 08-12-2024 13:43-0400 Body temperature 97.9 [degF] Dr. Bean Bettencourt DO Work Phone: [facility] 08-12-2024 13:43-0400 Diastolic blood pressure 60 mm[Hg] Dr. Bean Bettencourt DO Work Phone: [facility] 08-12-2024 13:43-0400 Heart rate 90 /min Dr. Bean Bettencourt DO Work Phone: [facility] 08-12-2024 13:43-0400 Respiratory rate 15 /min Dr. Bean Bettencourt DO Work Phone: [facility] 08-12-2024 13:43-0400 SaO2% (BldA) [Mass fraction] 96 % Dr. Bean Bettencourt DO Work Phone: [facility] 08-12-2024 13:43-0400 Systolic blood pressure 128 mm[Hg] Dr. Bean Bettencourt DO Work Phone: [facility] 08-06-2024 14:30-0400 Body mass index (BMI) [Ratio] 28.5 kg/m2 Dr. Bean Bettencourt DO Work Phone: [facility] 08-06-2024 14:30-0400 Body temperature 97.7 [degF] Dr. Bean Bettencourt DO Work Phone: [facility] 08-06-2024 14:30-0400 Body weight 75.[address] Bean Bettencourt DO Work Phone: [facility] 08-06-2024 14:30-0400 Diastolic blood pressure 60 mm[Hg] Dr. Bean Bettencourt DO Work Phone: [facility] 08-06-2024 14:30-0400 Heart rate 98 /min Dr. Bean Bettencourt DO Work Phone: [facility] 08-06-2024 14:30-0400 Respiratory rate 18 /min Dr. Bean Bettencourt DO Work Phone: [facility] 08-06-2024 14:30-0400 SaO2% (BldA) [Mass fraction] 98 % Dr. Bean Bettencourt DO Work Phone: [facility] 08-06-2024 14:30-0400 Systolic blood pressure 114 mm[Hg] Dr. Bean Bettencourt DO Work Phone: [facility] 08-04-2024 06:47-0400 Body temperature 98 [degF] Dr. Bean Bettencourt DO Work Phone: [facility] 08-04-2024 06:47-0400 Diastolic blood pressure 80 mm[Hg] Dr. Bean Bettencourt DO Work Phone: [facility] 08-04-2024 06:47-0400 Heart rate 78 /min Dr. Bean Bettencourt DO Work Phone: [facility] 08-04-2024 06:47-0400 Respiratory rate 16 /min Dr. Bean Bettencourt DO Work Phone: [facility] 08-04-2024 06:47-0400 SaO2% (BldA) [Mass fraction] 97 % Dr. Bean Bettencourt DO Work Phone: [facility] 08-04-2024 06:47-0400 Systolic blood pressure 120 mm[Hg] Dr. Bean Bettencourt DO Work Phone: [facility] 08-02-2024 07:37-0400 Body temperature 98.1 [degF] Dr. Bean Bettencourt DO Work Phone: [facility] 08-02-2024 07:37-0400 Diastolic blood pressure 88 mm[Hg] Dr. Bean Bettencourt DO Work Phone: [facility] 08-02-2024 07:37-0400 Heart rate 90 /min Dr. Bean Bettencourt DO Work Phone: [facility] 08-02-2024 07:37-0400 Inhaled oxygen flow rate 98 L/min Dr. Bean Bettencourt DO Work Phone: [facility] 08-02-2024 07:37-0400 Respiratory rate 16 /min Dr. Bean Bettencourt DO Work Phone: [facility] 08-02-2024 07:37-0400 SaO2% (BldA) [Mass fraction] 99 % Dr. Bean Bettencourt DO Work Phone: [facility] 08-02-2024 07:37-0400 Systolic blood pressure 118 mm[Hg] Dr. Bean Bettencourt DO Work Phone: [facility] 06-16-2024 13:00-0500 Body mass index (BMI) [Ratio] 28.3 kg/m2 Dr. Bean Bettencourt DO Work Phone: [facility] 06-16-2024 13:00-0500 Body temperature 97.9 [degF] Dr. Bean Bettencourt DO Work Phone: [facility] 06-16-2024 13:00-0500 Body weight 74.[address] Bean Bettencourt DO Work Phone: [facility] 06-16-2024 13:00-0500 Diastolic blood pressure 78 mm[Hg] Dr. Bean Bettencourt DO Work Phone: [facility] 06-16-2024 13:00-0500 Heart rate 82 /min Dr. Bean Bettencourt DO Work Phone: [facility] 06-16-2024 13:00-0500 Respiratory rate 16 /min Dr. Bean Bettencourt DO Work Phone: [facility] 06-16-2024 13:00-0500 SaO2% (BldA) [Mass fraction] 98 % Dr. Bean Bettencourt DO Work Phone: [facility] 06-16-2024 13:00-0500 Systolic blood pressure 118 mm[Hg] Dr. Bean Bettencourt DO Work Phone: [facility] 04-28-2024 09:35-0500 Body temperature 97.7 [degF] Dr. Bean Bettencourt DO Work Phone: [facility] 04-28-2024 09:35-0500 Diastolic blood pressure 78 mm[Hg] Dr. Bean Bettencourt DO Work Phone: [facility] 04-28-2024 09:35-0500 Heart rate 73 /min Dr. Bean Bettencourt DO Work Phone: [facility] 04-28-2024 09:35-0500 Respiratory rate 12 /min Dr. Bean Bettencourt DO Work Phone: [facility] 04-28-2024 09:35-0500 SaO2% (BldA) [Mass fraction] 99 % Dr. Bean Bettencourt DO Work Phone: [facility] 04-28-2024 09:35-0500 Systolic blood pressure 118 mm[Hg] Dr. Bean Bettencourt DO Work Phone: [facility] 09-05-2023 17:36-0400 Body temperature 97.8 [degF] Dr. Bean Bettencourt Work Phone: [facility] 09-05-2023 17:36-0400 Diastolic blood pressure 84 mm[Hg] Dr. Bean Bettencourt Work Phone: [facility] 09-05-2023 17:36-0400 Heart rate 98 /min Dr. Bean Bettencourt Work Phone: [facility] 09-05-2023 17:36-0400 SaO2% (BldA) [Mass fraction] 97 % Dr. Bean Bettencourt Work Phone: [facility] 09-05-2023 17:36-0400 Systolic blood pressure 138 mm[Hg] Dr. Bean Bettencourt Work Phone: [facility] 08-02-2023 13:13-0500 Body temperature 97.8 [degF] Dr. Bean Bettencourt Work Phone: [facility] 08-02-2023 13:13-0500 Diastolic blood pressure 76 mm[Hg] Dr. Bean Bettencourt Work Phone: [facility] 08-02-2023 13:13-0500 Heart rate 77 /min Dr. Bean Bettencourt Work Phone: [facility] 08-02-2023 13:13-0500 Respiratory rate 17 /min Dr. Bean Bettencourt Work Phone: [facility] 08-02-2023 13:13-0500 SaO2% (BldA) [Mass fraction] 97 % Dr. Bean Bettencourt Work Phone: [facility] 08-02-2023 13:13-0500 Systolic blood pressure 116 mm[Hg] Dr. Bean Bettencourt Work Phone: [facility] 06-13-2023 12:19-0500 Body height 162.[address] Bean Bettencourt Work Phone: [facility] 06-13-2023 12:19-0500 Body mass index (BMI) [Ratio] 28.3 kg/m2 Dr. Bean Bettencourt Work Phone: [facility] 06-13-2023 12:19-0500 Body temperature 97.8 [degF] Dr. Bean Bettencourt Work Phone: [facility] 06-13-2023 12:19-0500 Body weight 74.[address] Bean Bettencourt Work Phone: [facility] 06-13-2023 12:19-0500 Diastolic blood pressure 64 mm[Hg] Dr. eBan Bettencourt Work Phone: [facility] 06-13-2023 12:19-0500 Heart rate 74 /min Dr. Bean Bettencourt Work Phone: [facility] 06-13-2023 12:19-0500 Respiratory rate 16 /min Dr. Bean Bettencourt Work Phone: [facility] 06-13-2023 12:19-0500 SaO2% (BldA) [Mass fraction] 95 % Dr. Bean Bettencourt Work Phone: [facility] 06-13-2023 12:19-0500 Systolic blood pressure 102 mm[Hg] Dr. Bean Bettencourt Work Phone: [facility] 05-13-2023 14:41-0500 Body height 162.[address] Bean Bettencourt Work Phone: [facility] 05-13-2023 14:41-0500 Body mass index (BMI) [Ratio] 27.4 kg/m2 Dr. Bean Bettencourt Work Phone: [facility] 05-13-2023 14:41-0500 Body temperature 98.2 [degF] Dr. Bean Bettencourt Work Phone: [facility] 05-13-2023 14:41-0500 Body weight 72.[address] Bean Bettencourt Work Phone: [facility] 05-13-2023 14:41-0500 Diastolic blood pressure 81 mm[Hg] Dr. Bean Bettencourt Work Phone: [facility] 05-13-2023 14:41-0500 Heart rate 90 /min Dr. Bean Bettencourt Work Phone: [facility] 05-13-2023 14:41-0500 Respiratory rate 16 /min Dr. Bean Bettencourt Work Phone: [facility] 05-13-2023 14:41-0500 SaO2% (BldA) [Mass fraction] 95 % Dr. Bean Bettencourt Work Phone: [facility] 05-13-2023 14:41-0500 Systolic blood pressure 115 mm[Hg] Dr. Bean Bettencourt Work Phone: [facility] 05-08-2023 13:30-0500 Body temperature 97.8 [degF] Dr. Bean Bettencourt Work Phone: [facility] 05-08-2023 13:30-0500 Diastolic blood pressure 84 mm[Hg] Dr. Bean Bettencourt Work Phone: [facility] 05-08-2023 13:30-0500 Heart rate 91 /min Dr. Bean Bettencourt Work Phone: [facility] 05-08-2023 13:30-0500 Respiratory rate 14 /min Dr. Bean Bettencourt Work Phone: [facility] 05-08-2023 13:30-0500 SaO2% (BldA) [Mass fraction] 96 % Dr. Bean Bettencourt Work Phone: [facility] 05-08-2023 13:30-0500 Systolic blood pressure 135 mm[Hg] Dr. Bean Bettencourt Work Phone: [facility] 02-27-2023 15:27-0400 Body mass index (BMI) [Ratio] 29.6 kg/m2 Dr. Bean Bettencourt Work Phone: [facility] 02-27-2023 15:27-0400 Body temperature 95.7 [degF] Dr. Bean Bettencourt Work Phone: [facility] 02-27-2023 15:27-0400 Body weight 73.[address] Bean Bettencourt Work Phone: [facility] 02-27-2023 15:27-0400 Diastolic blood pressure 66 mm[Hg] Dr. Bean Bettencourt Work Phone: [facility] 02-27-2023 15:27-0400 Heart rate 74 /min Dr. Bean Bettencourt Work Phone: [facility] 02-27-2023 15:27-0400 Respiratory rate 18 /min Dr. Bean Bettencourt Work Phone: [facility] 02-27-2023 15:27-0400 SaO2% (BldA) [Mass fraction] 97 % Dr. Bean Bettencourt Work Phone: [facility] 02-27-2023 15:27-0400 Systolic blood pressure 112 mm[Hg] Dr. Bean Bettencourt Work Phone: [facility] 12-20-2022 12:50-0400 Body height 157.[address] Bean Bettencourt Work Phone: [facility] 12-20-2022 12:50-0400 Body mass index (BMI) [Ratio] 30.2 kg/m2 Dr. Bean Bettencourt Work Phone: [facility] 12-20-2022 12:50-0400 Body temperature 98.7 [degF] Dr. Bean Bettencourt Work Phone: [facility] 12-20-2022 12:50-0400 Body weight 74.[address] Bean Bettencourt Work Phone: [facility] 12-20-2022 12:50-0400 Heart rate 68 /min Dr. Bean Bettencourt Work Phone: [facility] 12-20-2022 12:50-0400 Respiratory rate 16 /min Dr. Bean Bettencourt Work Phone: [facility] 12-20-2022 12:50-0400 SaO2% (BldA) [Mass fraction] 98 % Dr. Bean Bettencourt Work Phone: [facility] 12-19-2022 15:04-0400 Body mass index (BMI) [Ratio] 30.2 kg/m2 Dr. Bean Bettencourt Work Phone: [facility] 12-19-2022 15:04-0400 Body temperature 98.3 [degF] Dr. Bean Bettencourt Work Phone: [facility] 12-19-2022 15:04-0400 Body weight 74.[address] Bean Bettencourt Work Phone: [facility] 12-19-2022 15:04-0400 Diastolic blood pressure 84 mm[Hg] Dr. Bean Bettencourt Work Phone: [facility] 12-19-2022 15:04-0400 Heart rate 82 /min Dr. Bean Bettencourt Work Phone: [facility] 12-19-2022 15:04-0400 Respiratory rate 18 /min Dr. Bean Bettencourt Work Phone: [facility] 12-19-2022 15:04-0400 SaO2% (BldA) [Mass fraction] 96 % Dr. Bean Bettencourt Work Phone: [facility] 12-19-2022 15:04-0400 Systolic blood pressure 125 mm[Hg] Dr. Bean Bettencourt Work Phone: [facility] 11-27-2022 15:25-0400 Body temperature 97.5 [degF] Dr. Bean Bettencourt Work Phone: [facility] 11-27-2022 15:25-0400 Diastolic blood pressure 68 mm[Hg] Dr. Bean Bettencourt Work Phone: [facility] 11-27-2022 15:25-0400 Heart rate 66 /min Dr. Bean Bettencourt Work Phone: [facility] 11-27-2022 15:25-0400 Respiratory rate 14 /min Dr. Bean Bettencourt Work Phone: [facility] 11-27-2022 15:25-0400 SaO2% (BldA) [Mass fraction] 96 % Dr. Bean Bettencourt Work Phone: [facility] 11-27-2022 15:25-0400 Systolic blood pressure 102 mm[Hg] Dr. Bean Bettencourt Work Phone: [facility] 10-30-2022 23:26-0400 Diastolic blood pressure 94 mm[Hg] Dr. Bean Bettencourt Work Phone: [facility] 10-30-2022 23:26-0400 Heart rate 69 /min Dr. Bean Bettencourt Work Phone: [facility] 10-30-2022 23:26-0400 Respiratory rate 15 /min Dr. Bean Bettencourt Work Phone: [facility] 10-30-2022 23:26-0400 SaO2% (BldA) [Mass fraction] 99 % Dr. Bean Bettencourt Work Phone: [facility] 10-30-2022 23:26-0400 Systolic blood pressure 110 mm[Hg] Dr. Bean Bettencourt Work Phone: [facility] 10-30-2022 22:17-0400 Body height 157.[address] Bean Bettencourt Work Phone: [facility] 10-30-2022 22:17-0400 Body mass index (BMI) [Ratio] 30.5 kg/m2 Dr. Bean Bettencourt Work Phone: [facility] 10-30-2022 22:17-0400 Body temperature 97.5 [degF] Dr. Bean Bettencourt Work Phone: [facility] 10-30-2022 22:17-0400 Body weight 75.[address] Bean Bettencourt Work Phone: [facility] 08-21-2022 22:20-0400 Diastolic blood pressure 88 mm[Hg] Dr. Bean Bettencourt Work Phone: [facility] 08-21-2022 22:20-0400 SaO2% (BldA) [Mass fraction] 97 % Dr. Bean Bettencourt Work Phone: [facility] 08-21-2022 22:20-0400 Systolic blood pressure 136 mm[Hg] Dr. Bean Bettencourt Work Phone: [facility] 08-21-2022 22:04-0400 Respiratory rate 18 /min Dr. Bean Bettencourt Work Phone: [facility] 08-21-2022 18:41-0400 Body height 162.[address] Bean Bettencourt Work Phone: [facility] 08-21-2022 18:41-0400 Body mass index (BMI) [Ratio] 24.2 kg/m2 Dr. Bean Bettencourt Work Phone: [facility] 08-21-2022 18:41-0400 Body temperature 97 [degF] Dr. Bean Bettencourt Work Phone: [facility] 08-21-2022 18:41-0400 Body weight 63.[address] Bean Bettencourt Work Phone: [facility] 08-21-2022 18:41-0400 Heart rate 119 /min Dr. Bean Bettencourt Work Phone: [facility] 08-21-2022 10:57-0400 Body temperature 97.7 [degF] Dr. Bean Bettencourt Work Phone: [facility] 08-21-2022 10:57-0400 Diastolic blood pressure 78 mm[Hg] Dr. Bean Bettencourt Work Phone: [facility] 08-21-2022 10:57-0400 Heart rate 98 /min Dr. Bean Bettencourt Work Phone: [facility] 08-21-2022 10:57-0400 Respiratory rate 18 /min Dr. Bean Bettencourt Work Phone: [facility] 08-21-2022 10:57-0400 SaO2% (BldA) [Mass fraction] 98 % Dr. Bean Bettencourt Work Phone: [facility] 08-21-2022 10:57-0400 Systolic blood pressure 112 mm[Hg] Dr. Bean Bettencourt Work Phone: [facility] 08-02-2022 16:06-0500 Body mass index (BMI) [Ratio] 28.6 kg/m2 Dr. Bean Bettencourt Work Phone: [facility] 08-02-2022 14:21-0500 Body temperature 97.6 [degF] Dr. Bean Bettencourt Work Phone: [facility] 08-02-2022 14:21-0500 Diastolic blood pressure 71 mm[Hg] Dr. Bean Bettencourt Work Phone: [facility] 08-02-2022 14:21-0500 Heart rate 83 /min Dr. Bean Bettencourt Work Phone: [facility] 08-02-2022 14:21-0500 Respiratory rate 16 /min Dr. Bean Bettencourt Work Phone: [facility] 08-02-2022 14:21-0500 SaO2% (BldA) [Mass fraction] 97 % Dr. Bean Bettencourt Work Phone: [facility] 08-02-2022 14:21-0500 Systolic blood pressure 101 mm[Hg] Dr. Bean Bettencourt Work Phone: [facility] 08-02-2022 13:14-0500 Body height 162.[address] Bean Bettencourt Work Phone: [facility] 08-02-2022 13:14-0500 Body weight 75.[address] Bean Bettencourt Work Phone: [facility] 08-02-2022 02:30-0500 Diastolic blood pressure 89 mm[Hg] Dr. Bean Bettencourt Work Phone: [facility] 08-02-2022 02:30-0500 Heart rate 70 /min Dr. Bean Bettencourt Work Phone: [facility] 08-02-2022 02:30-0500 Respiratory rate 17 /min Dr. Bean Bettencourt Work Phone: [facility] 08-02-2022 02:30-0500 SaO2% (BldA) [Mass fraction] 97 % Dr. Bean Bettencourt Work Phone: [facility] 08-02-2022 02:30-0500 Systolic blood pressure 141 mm[Hg] Dr. Bean Bettencourt Work Phone: [facility] 08-02-2022 01:59-0500 Body temperature 98.2 [degF] Dr. Bean Bettencourt Work Phone: [facility] 08-02-2022 00:12-0500 Body height 162.[address] Bean Bettencourt Work Phone: [facility] 08-02-2022 00:12-0500 Body mass index (BMI) [Ratio] 29.2 kg/m2 Dr. Bean Bettencourt Work Phone: [facility] 08-02-2022 00:12-0500 Body weight 77.[address] Bean Bettencourt Work Phone: [facility] 08-01-2022 14:06-0500 Body mass index (BMI) [Ratio] 28.8 kg/m2 Dr. Bean Bettencourt Work Phone: [facility] 08-01-2022 14:06-0500 Body temperature 95.6 [degF] Dr. Bean Bettencourt Work Phone: [facility] 08-01-2022 14:06-0500 Body weight 77.[address] Bean Bettencourt Work Phone: [facility] 08-01-2022 14:06-0500 Diastolic blood pressure 88 mm[Hg] Dr. Bean Bettencourt Work Phone: [facility] 08-01-2022 14:06-0500 Heart rate 86 /min Dr. Bean Bettencourt Work Phone: [facility] 08-01-2022 14:06-0500 Respiratory rate 18 /min Dr. Bean Bettencourt Work Phone: [facility] 08-01-2022 14:06-0500 SaO2% (BldA) [Mass fraction] 96 % Dr. Bean Bettencourt Work Phone: [facility] 08-01-2022 14:06-0500 Systolic blood pressure 118 mm[Hg] Dr. Bean Bettencourt Work Phone: [facility] 06-05-2022 10:20-0500 Body temperature 97.9 [degF] Dr. Bean Bettencourt Work Phone: [facility] 06-05-2022 10:20-0500 Diastolic blood pressure 74 mm[Hg] Dr. Bean Bettencourt Work Phone: [facility] 06-05-2022 10:20-0500 Heart rate 67 /min Dr. Bean Bettencourt Work Phone: [facility] 06-05-2022 10:20-0500 Respiratory rate 14 /min Dr. Bean Bettencourt Work Phone: [facility] 06-05-2022 10:20-0500 SaO2% (BldA) [Mass fraction] 99 % Dr. Bean Bettencourt Work Phone: [facility] 06-05-2022 10:20-0500 Systolic blood pressure 132 mm[Hg] Dr. Bean Bettencourt Work Phone: [facility] 05-21-2022 13:44-0500 Body temperature 97.4 [degF] Dr. Bean Bettencourt Work Phone: [facility] 05-21-2022 13:44-0500 Diastolic blood pressure 70 mm[Hg] Dr. Bean Bettencourt Work Phone: [facility] 05-21-2022 13:44-0500 Heart rate 114 /min Dr. Bean Bettencourt Work Phone: [facility] 05-21-2022 13:44-0500 Respiratory rate 18 /min Dr. Bean Bettencourt Work Phone: [facility] 05-21-2022 13:44-0500 SaO2% (BldA) [Mass fraction] 96 % Dr. Bean Bettencourt Work Phone: [facility] 05-21-2022 13:44-0500 Systolic blood pressure 100 mm[Hg] Dr. Bean Bettencourt Work Phone: [facility] 05-17-2022 11:53-0500 Body height 162.6 cm James Meftah [employer] Work Phone: [facility] 05-17-2022 11:53-0500 Body mass index (BMI) [Ratio] 28.32 kg/m2 James Meftah [employer] Work Phone: [facility] 05-17-2022 11:53-0500 Body temperature 98.6 [degF] James Meftah [employer] Work Phone: [facility] 05-17-2022 11:53-0500 Body weight 74.84 kg James Meftah [employer] Work Phone: [facility] 05-17-2022 11:53-0500 Diastolic blood pressure 77 mm[Hg] James Meftah [employer] Work Phone: [facility] 05-17-2022 11:53-0500 Heart rate 86 /min James Meftah [employer] Work Phone: [facility] 05-17-2022 11:53-0500 Respiratory rate 16 /min James Meftah [employer] Work Phone: [facility] 05-17-2022 11:53-0500 SaO2% (BldA) [Mass fraction] 95 % James Gray [employer] Work Phone: [facility] 05-17-2022 11:53-0500 Systolic blood pressure 117 mm[Hg] James Gray [employer] Work Phone: [facility] 05-14-2022 11:04-0500 Body temperature 98.8 [degF] Dr. Bean Bettencourt Work Phone: [facility] 05-14-2022 11:04-0500 Diastolic blood pressure 80 mm[Hg] Dr. Bean Bettencourt Work Phone: [facility] 05-14-2022 11:04-0500 Heart rate 96 /min Dr. Bean Bettencourt Work Phone: [facility] 05-14-2022 11:04-0500 Respiratory rate 16 /min Dr. Bean Bettencourt Work Phone: [facility] 05-14-2022 11:04-0500 SaO2% (BldA) [Mass fraction] 97 % Dr. Bean Bettencourt Work Phone: [facility] 05-14-2022 11:04-0500 Systolic blood pressure 122 mm[Hg] Dr. Bean Bettencourt Work Phone: [facility] 04-27-2022 20:52-0500 Body height 163.[address] Bean Bettencourt Work Phone: [facility] 04-27-2022 20:52-0500 Body mass index (BMI) [Ratio] 28.7 kg/m2 Dr. Bean Bettencourt Work Phone: [facility] 04-27-2022 20:52-0500 Body temperature 97 [degF] Dr. Bean Bettencourt Work Phone: [facility] 04-27-2022 20:52-0500 Body weight 77.[address] Bean Bettencourt Work Phone: [facility] 04-27-2022 20:52-0500 Diastolic blood pressure 94 mm[Hg] Dr. Bean Bettencourt Work Phone: [facility] 04-27-2022 20:52-0500 Heart rate 79 /min Dr. Bean Bettencourt Work Phone: [facility] 04-27-2022 20:52-0500 Respiratory rate 18 /min Dr. Bean Bettencourt Work Phone: [facility] 04-27-2022 20:52-0500 SaO2% (BldA) [Mass fraction] 97 % Dr. Bean Bettencourt Work Phone: [facility] 04-27-2022 20:52-0500 Systolic blood pressure 151 mm[Hg] Dr. Bean Bettencourt Work Phone: [facility] 03-10-2022 09:00-0400 Body temperature 98.1 [degF] Dr. Bean Bettencourt Work Phone: [facility] 03-10-2022 09:00-0400 Diastolic blood pressure 74 mm[Hg] Dr. Bean Bettencourt Work Phone: [facility] 03-10-2022 09:00-0400 Heart rate 77 /min Dr. Bean Bettencourt Work Phone: [facility] 03-10-2022 09:00-0400 Respiratory rate 14 /min Dr. Bean Bettencourt Work Phone: [facility] 03-10-2022 09:00-0400 SaO2% (BldA) [Mass fraction] 96 % Dr. Bean Bettencourt Work Phone: [facility] 03-10-2022 09:00-0400 Systolic blood pressure 122 mm[Hg] Dr. Bean Bettencourt Work Phone: [facility] 01-04-2022 16:28-0400 Diastolic blood pressure 78 mm[Hg] Dr. Bean Bettencourt Work Phone: [facility] Work Phone: 01-04-2022 16:28-0400 Heart rate 76 /min Dr. Bean Bettencourt Work Phone: [facility] Work Phone: 01-04-2022 16:28-0400 Respiratory rate 18 /min Dr. Bean Bettencourt Work Phone: [facility] Work Phone: 01-04-2022 16:28-0400 Systolic blood pressure 130 mm[Hg] Dr. Bean Bettencourt Work Phone: [facility] Work Phone: 09-24-2021 15:24-0400 Body temperature 98 [degF] PA Rohan Peralta PA Work Phone: [facility] Work Phone: 09-24-2021 15:24-0400 Diastolic blood pressure 76 mm[Hg] JEY Peralta PA Work Phone: [facility] Work Phone: 09-24-2021 15:24-0400 Heart rate 71 /min PA Rohan Peralta PA Work Phone: [facility] Work Phone: 09-24-2021 15:24-0400 Respiratory rate 16 /min PA Rohan Peralta PA Work Phone: [facility] Work Phone: 09-24-2021 15:24-0400 SaO2% (BldA) [Mass fraction] 98 % PA Rohan Peralta PA Work Phone: [facility] Work Phone: 09-24-2021 15:24-0400 Systolic blood pressure 132 mm[Hg] JEY Peralta PA Work Phone: [facility] Work Phone: 06-18-2021 11:44-0500 Body temperature 97 [degF] JEY Peralta PA Work Phone: [facility] Work Phone: 06-18-2021 11:44-0500 Diastolic blood pressure 76 mm[Hg] PA Rohan Peralta PA Work Phone: [facility] Work Phone: 06-18-2021 11:44-0500 Heart rate 72 /min PA Rohan Peralta PA Work Phone: [facility] Work Phone: 06-18-2021 11:44-0500 Respiratory rate 16 /min PA Rohan Peralta PA Work Phone: [facility] Work Phone: 06-18-2021 11:44-0500 SaO2% (BldA) [Mass fraction] 99 % PA Rohan Peralta PA Work Phone: [facility] Work Phone: 06-18-2021 11:44-0500 Systolic blood pressure 120 mm[Hg] PA Rohan Peralta PA Work Phone: [facility] Work Phone: Encounters Encounter Date Encounter Type Care Provider Facility Start: 01-19-2025 End: 01-19-2025 Patient encounter procedure Mark Kirby [facility] Work Phone: Start: 01-19-2025 End: 01-19-[address] Bean Bettencourt DO Work Phone: -[facility] Start: 01-19-2025 Non-patient / Non-visit Hayde ewing DIRECTOR OF [employer] -[facility] Start: 01-19-2025 Registered Recurring Hayde Sandoval DIRECTOR OF [employer] -[facility] Work Phone: Start: 01-19-2025 ambulatory Bean Bettencourt Facilit y:[facility] Start: 01-14-2025 End: 01-14-[address] Bean Bettencourt DO Work Phone: -[facility] Start: 01-14-2025 End: 01-14-[address] Bean Mccray DO -[facility] Work Phone: Start: 01-14-2025 End: 01-14-2025 Patient encounter procedure Mark Kirby PA -[facility] Work Phone: Start: 01-14-2025 End: 01-14-[address] Bean Bettencourt DO Work Phone: -[facility] Start: 01-14-2025 End: 01-14-2025 ambulatory Bean Bettencourt Facility:[facility] Start: 12-21-2024 End: 12-21-2024 Patient encounter procedure Althea Carrera DIRECTOR OF [employer] -[facility] Work Phone: Start: 12-21-2024 End: 12-21-[address] Bean Bettencourt DO Work Phone: -[facility] Start: 12-14-2024 End: 12-14-2024 Patient encounter procedure Carolynbryan Tadeo DIRECTOR OF [employer] -[facility] Work Phone: Start: 12-14-2024 End: 12-14-[address] Bean Bettencourt DO Work Phone: -[facility] Start: 12-13-2024 End: 12-13-[address] Bean Bettencourt DO Work Phone: -Laboratory Start: 12-13-2024 End: 12-13-2024 Patient encounter procedure Isauro Barragan DIRECTOR OF [employer] -Laboratory Work Phone: Start: 12-12-2024 End: 12-12-2024 Patient encounter procedure Isauro Barragan DIRECTOR OF [employer] -[facility] Work Phone: Start: 12-12-2024 End: 12-13-[address] Bean Bettencourt DO Work Phone: -[facility] Start: 12-07-2024 End: 12-07-[address] Bean Bettencourt DO Work Phone: -[facility] Start: 12-07-2024 End: 12-07-2024 Patient encounter procedure Mark KHANNA -[facility] Work Phone: Start: 12-07-2024 End: 12-07-2024 Patient encounter procedure Mark KHANNA -[facility] Work Phone: Start: 12-07-2024 End: 12-07-[address] Bean Bettencourt DO Work Phone: [facility] Start: 12-07-2024 End: 12-07-2024 ambulatory Mark KHANNA Facility:[facility] Start: 12-01-2024 End: 12-01-2024 Patient encounter procedure Mark KHANNA -[facility] Work Phone: Start: 12-01-2024 End: 12-01-[address] Bean Bettencourt DO Work Phone: - Clinic Start: 11-23-2024 Non-patient / Non-visit Dr. Elena newell MD -[facility] Work Phone: Start: 11-15-2024 End: 11-15-[address] Luz Elena Hatch MD -[facility] Work Phone: Start: 11-15-2024 End: 11-15-[address] Bean Bettencourt DO Work Phone: [facility] Work Phone: Start: 11-08-[address] Rachael Hatch MD -[facility] Start: 11-08-2024 End: 11-08-[address] Luz Elena Hatch MD -[facility] Work Phone: Start: 11-08-2024 End: 11-08-[address] Bean Bettencourt DO Work Phone: [facility] Work Phone: Start: 11-05-2024 End: 11-05-2024 Patient encounter procedure Carolyn CRAWFORD -[facility] Work Phone: Start: 11-05-2024 End: 11-05-[address] Bean Bettencourt DO Work Phone: [facility] Work Phone: Start: 11-04-2024 End: 11-04-2024 Patient encounter procedure Rohan KHANNA -[facility] Work Phone: Start: 11-04-2024 End: 11-04-[address] Bean Bettencourt DO Work Phone: [facility] Work Phone: Start: 10-27-2024 End: 10-27-[address] Ken Izaguirre DO -[facility] Work Phone: Start: 10-27-2024 End: 10-27-[address] Bean Bettencourt DO Work Phone: [facility] Work Phone: Start: 10-20-2024 End: 10-20-[address] Ken Izaguirre DO -[facility] Work Phone: Start: 10-20-2024 End: 10-20-[address] Bean Bettencourt DO Work Phone: [facility] Work Phone: Start: 09-10-2024 End: 09-10-[address] Bean Mccray DO -[facility] Work Phone: Start: 09-10-2024 End: 09-10-[address] Ken Izaguirre DO -[facility] Work Phone: Start: 09-10-2024 End: 09-10-2024 ambulatory Ken Izaguirre [facility] [facility] [place] [place]: 09-10-2024 End: 09-10-2024 ambulatory Bean Bettencourt Facility:[facility] Start: 08-27-2024 End: 08-27-2024 Patient encounter procedure Italo KHANNA -[facility] Work Phone: Start: 08-27-2024 End: 08-27-2024 ambulatory Bean Bettencourt [facility] Start: 08-22-2024 End: 08-22-2024 Emergency department patient visit Dr. Bean Bettencourt DO Work Phone: -Emergency Department Work Phone: Start: 08-12-2024 End: 08-12-2024 Patient encounter procedure Rohan Peralta [facility] Work Phone: Start: 08-12-2024 End: 08-12-2024 ambulatory Bean Bettencourt [facility] Start: 08-06-2024 End: 08-06-[address] Dusty Car MD -[facility] Start: 08-06-2024 End: 08-06-2024 ambulatory Bean Bettencourt [facility] Start: 08-06-2024 End: 08-06-2024 Patient encounter procedure Italo KHANNA -[facility] Work Phone: Start: 08-06-2024 End: 08-06-2024 ambulatory Italo KHANNA [facility] Start: 08-04-2024 End: 08-04-2024 Patient encounter procedure Mark Kirby PA -[facility] Work Phone: Start: 08-04-2024 End: 08-04-2024 ambulatory Mark KHANNA [facility] Start: 08-02-2024 End: 08-02-2024 Patient encounter procedure Mark Kirby PA -[facility] Work Phone: Start: 08-02-2024 End: 08-02-2024 ambulatory Bean Bettencourt [facility] Start: 07-14-2024 Non-patient / Non-visit Dr. Hafsa VELAZQUEZ -[facility] Work Phone: Start: 07-14-[address] Bean Mccray DO -[facility], [facility] Work Phone: Start: 07-14-2024 ambulatory Bean Bettencourt Facilit y:[facility] Start: 06-16-2024 End: 06-16-[address] Bean Mccray DO -[facility] Work Phone: Start: 06-16-2024 End: 06-16-2024 ambulatory Bean Bettencourt [facility] Start: 04-28-2024 End: 04-28-2024 Patient encounter procedure Mark KHANNA -Laboratory, Specimen Work Phone: Start: 04-28-2024 End: 04-28-2024 Patient encounter procedure Mark KHANNA -[facility] Work Phone: Start: 04-28-2024 End: 04-28-2024 ambulatory Mark KHANNA [facility] Start: 04-28-2024 End: 04-28-2024 ambulatory Mark KHANNA Facility:[facility] Start: 03-23-2024 End: 03-23-2024 ambulatory Elise Chapin Facility[facility] Start: 03-23-2024 End: 03-23-2024 ambulatory [facility] Facility:[facility] Start: 02-11-2024 ambulatory Bean Bettencourt Facilit y:[facility] Start: 01-29-2024 End: 01-29-2024 ambulatory Rohan KHANNA Facility[facility] Start: 09-17-2023 Non-patient / Non-visit Dr. Fenton Work Phone: [facility] Start: 09-17-2023 End: 09-17-[address] Bean Bettencourt Work Phone: [facility] Work Phone: Start: 09-17-2023 End: 09-17-[address] Bean Bettencourt Work Phone: [facility]-Cardiovascula r Services Work Phone: Start: 09-08-2023 End: 09-08-[address] Bean Bettencourt Work Phone: [facility] Work Phone: Start: 09-08-2023 End: 09-08-[address] Bean Bettencourt Work Phone: [facility]-Laboratory, Specimen Work Phone: Start: 09-05-2023 End: 09-05-[address] Bean Bettencourt Work Phone: [facility] Work Phone: Start: 08-15-2023 End: 08-15-[address] Bean Bettencourt Work Phone: [facility] Work Phone: Start: 08-15-2023 End: 08-15-[address] [facility] Start: 08-04-2023 End: 08-04-[address] Bean Bettencourt Work Phone: [facility] Work Phone: Start: 08-04-2023 End: 08-04-[address] [facility] Start: 08-02-2023 End: 08-02-[address] Bean Bettencourt Work Phone: [facility] Work Phone: Start: 06-13-2023 End: 06-13-[address] [facility]court [facility] Start: 06-13-2023 End: 06-13-[address] Bean Bettencourt Work Phone: [facility] Internal Medicine Work Phone: Start: 05-13-2023 End: 05-13-[address] Bean Bettencourt Work Phone: [facility] Work Phone: Start: 05-09-2023 End: 05-09-[address] Bean Bettencourt Work Phone: [facility] Work Phone: Start: 05-09-2023 End: 05-09-[address] Bean Bettencourt Work Phone: [facility]-Outpatient Breast Imaging Work Phone: Start: 05-08-2023 End: 05-08-[address] Bean Bettencourt Work Phone: [facility] Work Phone: Start: 02-27-2023 End: 02-27-[address] Bean Bettencourt Work Phone: [facility] Internal Medicine Work Phone: Start: 02-05-2023 End: 02-05-[address] Bean Bettencourt Work Phone: [facility] Radiology Start: 12-20-2022 End: 12-20-[address] Bean Bettencourt Work Phone: [facility] Work Phone: Start: 12-19-2022 End: 12-19-[address] Bean Bettencourt Work Phone: [facility] Work Phone: Start: 12-19-2022 End: 12-19-[address] Bean Bettencourt Work Phone: [facility]-Laboratory, Specimen Work Phone: Start: 12-19-2022 End: 12-19-[address] Bean Bettencourt Work Phone: [facility] Work Phone: Start: 11-27-2022 End: 11-27-[address] Bean Bettencourt Work Phone: [facility] Work Phone: Start: 11-27-2022 End: 11-27-[address] [facility]court [facility] Start: 11-27-2022 End: 11-27-[address] [facility] Start: 10-30-2022 End: 10-31-2022 Emergency department patient visit Dr. Bean Bettencourt Work Phone: [facility]-Emergency Department Start: 10-09-2022 End: 10-09-[address] Bean Bettencourt Work Phone: [facility] Start: 08-28-2022 Non-patient / Non-visit Dr. Fenton Work Phone: [facility] Start: 08-28-2022 End: 08-28-[address] Bean Bettencourt Work Phone: [facility] Work Phone: Start: 08-28-2022 End: 08-28-[address] Bean Bettencourt Work Phone: [facility]-Cardiovascula r Services Start: 08-21-2022 End: 08-21-2022 Emergency department patient visit Dr. Bean Bettencourt Work Phone: [facility]-Emergency Department Start: 08-21-2022 End: 08-21-[address] Bean Bettencourt Work Phone: [facility] Work Phone: Start: 08-21-2022 End: 08-21-[address] [facility]court [facility] Start: 08-21-2022 End: 08-21-[address] [facility] Start: 08-19-2022 End: 08-19-[address] Bean Bettencourt Work Phone: [facility] Work Phone: Start: 08-19-2022 End: 08-19-[address] Bean Bettencourt Work Phone: [facility] Start: 08-07-2022 End: 08-07-[address] Bean Bettencourt Work Phone: [facility] Work Phone: Start: 08-07-2022 End: 08-07-[address] Bean Bettencourt Work Phone: [facility] Start: 08-06-2022 Non-patient / Non-visit Dr. Fenton Work Phone: [facility] Start: 08-06-2022 End: 08-06-[address] Bean Bettencourt Work Phone: [facility] Work Phone: Start: 08-06-2022 End: 08-06-[address] Bean Bettencourt Work Phone: [facility]-Cardiovascula r Services Start: 08-02-2022 End: 08-02-2022 Evaluation and management of inpatient Dr. Bean Bettencourt Work Phone: [facility]-Progressive Care Unit Start: 08-02-2022 End: 08-02-[address] Bean Bettencourt Work Phone: [facility] Work Phone: Start: 08-02-2022 Non-patient / Non-visit Dr. Fenton Work Phone: [facility] Start: 08-01-2022 End: 08-01-[address] Bean Bettencourt Work Phone: [facility] Work Phone: Start: 08-01-2022 End: 08-01-[address] Bean Bettencourt Work Phone: [facility] Internal Medicine Start: 06-14-2022 End: 06-14-2022 Patient encounter procedure LANDRY KHANNA [facility] Start: 06-05-2022 End: 06-05-[address] Bean Bettencourt Work Phone: [facility] Work Phone: Start: 06-05-2022 End: 06-05-[address] [facility] Start: 06-05-2022 End: 06-05-[address] Bean Bettencourt Work Phone: [facility] Start: 05-21-2022 End: 05-21-[address] 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 Bean Bettencourt Work Phone: [facility] Start: 04-27-2022 End: 04-27-2022 Emergency department patient [facility] Start: 04-26-2022 End: 04-26-[address] Bean Bettencourt Work Phone: [facility] Work Phone: Start: 04-26-2022 End: 04-26-[address] Bean Bettencourt Work Phone: [facility] Start: 04-24-2022 End: 04-24-[address] Bean Bettencourt Work Phone: [facility] Work Phone: Start: 04-24-2022 End: 04-24-[address] Bean Bettencourt Work Phone: [facility]-Laboratory Start: 03-10-2022 End: 03-10-[address] Bean Bettencourt Work Phone: [facility] Start: 01-04-2022 End: 01-04-[address] Bean Bettencourt Work Phone: [facility] Radiology Start: 01-04-2022 End: 01-04-[address] Bean Bettencorut Work Phone: [facility] Internal Medicine Start: 09-29-2021 End: 09-29-2021 Patient encounter procedure JEY KHANNA Work Phone: [facility] Start: 09-24-2021 End: 09-24-2021 Patient encounter procedure JEY KHANNA Work Phone: [facility]-Laboratory, Specimen Start: 09-24-2021 End: 09-24-2021 Patient encounter procedure JEY KHANNA Work Phone: [facility] Start: 08-29-2021 ambulatory No Lucie Reaves Start: 08-14-2021 End: 08-14-2021 Patient encounter procedure SHASHI GREEN [employer] MANAGER-[employer] REFINISHER [facility] Start: 07-26-2021 End: 07-26-2021 Patient encounter procedure JEY KHANNA Work Phone: [facility]-Outpatient Breast Imaging Start: 07-16-2021 Patient encounter status No Pcp [facility] Work Phone: Start: 06-18-2021 End: 06-18-2021 Patient encounter procedure JEY KHANNA Work Phone: [facility] Procedures Date Procedure Procedure Detail Performing Clinician Start: 01-19-2025 X-ray of unilateral ribs, two views without x-ray of chest Dr. Bean Bettencourt DO Work Phone: Start: 01-19-2025 Gram stain microscopy D jaimie Bettencourt DO Work Phone: Start: 01-14-[address] Elijah Bettencourt DO Work Phone: Start: 12-07-2024 Plain X-ray of tibia and fibula Dr. Bean Bettencourt DO Work Phone: Start: 12-07-2024 XR knee, [address] Fenton DO Work Phone: Start: 09-10-2024 Screening mammography Martha Bettencourt DO Work Phone: Start: 08-22-2024 CT angiography of he ad and neck Dr. Bean Bettencourt DO Work Phone: Start: 08-22-[address] Bean Bettencourt DO Work Phone: Start: 08-06-2024 X-ray of chest, PA a nd lateral views Dr. Bean Bettencourt DO Work Phone: Start: 07-14-2024 CT angiography of co ronary arteries Dr. Bean Bettencourt DO Work Phone: Start: 06-16-2024 X-ray of facial bone s, three or more views Dr. Bean Bettencourt DO Work Phone: Start: 04-28-[address] Elijah Bettencourt DO Work Phone: Start: 09-08-[address] Elijah Bettencourt Work Phone: Start: 08-04-[address] Elijah Bettencourt Work Phone: Start: 06-13-[address] Elijah Bettencourt Work Phone: Start: 05-09-2023 Screening mammography Martha Bettencourt Work Phone: Start: 02-05-2023 Plain chest X-ray Dr. Martha Bettencourt Work Phone: Start: 12-19-[address] Elijah Bettencourt Work Phone: Start: 11-27-[address] Elijah Bettencourt Work Phone: Start: 10-30-[address] Elijah bright Ra Work Phone: Start: 08-28-2022 Radionuclide imaging of perfusion of myocardium under exercise stress Dr. Bean Bettencourt Work Phone: Start: 08-21-[address] Elijah bright Ra Work Phone: Start: 08-19-2022 MRI of lower extremity Dr. Bean Bettencourt Work Phone: Start: 08-07-2022 CT of thorax with contrast Dr. Bean Bettencourt Work Phone: Start: 08-02-2022 MRI of brain without contrast Dr. Bean Bettencourt Work Phone: Start: 08-02-2022 CT angiography of he ad and neck Dr. Bean Bettencourt Work Phone: Start: 08-02-2022 CT of head without contrast Dr. Bean Bettencourt Work Phone: Start: 08-02-2022 Plain chest X-ray Dr. Martha Bettencourt Work Phone: Start: 05-21-2022 Plain chest X-ray Dr. Martha Bettencourt Work Phone: Start: 04-26-2022 MRI of joint of lowe r extremity Dr. Bean Bettencourt Work Phone: Start: 01-04-2022 Plain chest X-ray Dr. Martha Bettencourt Work Phone: Start: 09-29-2021 MRI of cervical spine Shanice KHANNA Work Phone: Start: 09-24-2021 Urine culture JEY KHANNA Work Phone: Start: 07-26-2021 End: 07-26-2021 Mammography No Pcp Cataract (morphologi c abnormality) SHASHI GREEN [employer] MANAGER-[employer] RE[employer]ISHER Comment on above: bilateral Deliveries by alyssa an (finding) SHASHI FISH [employer]ST[employer] MANAGER-[employer] REFINISHER Comment on above: x3 Foot structure (body structure) SHASHI GREEN HAIRMAST[employer] MANAGER-[employer] REFINISHER Lobectomy SHASHI HAYDE AP RN-[employer] REFINISHER Comment on above: upper left lobectomy , 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 Bean Harrison own Work Phone: Urine culture Dr. Bean Harrison own Work Phone: Plan of Treatment Date Care Activity Detail Author Start: 01-18-2030 Tetanus vaccination [facility] Start: 01-19-2025 X-ray of unilateral ribs, two views without x-ray of chest Ribs Unil 2V No CXR [facility] Start: 01-19-2025 XR Ribs Views [facility] Start: 01-19-2025 Anaerobic Culture Anaerobic Culture [facility] Start: 01-19-2025 Microbial culture, routine Wound Culture [facility] Start: 01-19-2025 Wound Culture Wound Culture [facility] Start: 01-19-2025 Source specific culture [facility] Start: 11-08-2024 CBC W Auto Differential panel - Blood [facility] Start: 11-08-2024 Partial thromboplastin time, activated [facility] Start: 11-08-2024 Prothrombin time [facility] Start: 11-08-2024 [facility] Start: 08-22-2024 [facility] Start: 10-31-2022 [facility] Start: 08-21-2022 [facility] Start: 08-02-2022 Admission procedure [facility] Start: 08-02-2022 Patient discharge [facility] Start: 08-02-2022 Following clinical pathway protocol [facility] Start: 08-02-2022 Aspiration precautions [facility] Start: 08-02-2022 Assessment of risk of venous thromboembolism [facility] Start: 08-02-2022 Cardiac monitoring [facility] Start: 08-02-2022 Catheterization of vein [facility] Start: 08-02-2022 CT of thorax with contrast Chest WITH Contrast [facility] Start: 08-02-2022 Elevation of head of bed [facility] Start: 08-02-2022 Exercises [facility] Start: 08-02-2022 Fall prevention [facility] Start: 08-02-2022 Implementation of planned interventions [facility] Start: 08-02-2022 Incentive spirometry [facility] Start: 08-02-2022 Inhalation therapy procedure [facility] Start: 08-02-2022 Insertion of catheter into peripheral vein [facility] Start: 08-02-2022 Introduction of urinary catheter [facility] Start: 08-02-2022 Measuring intake and output [facility] Start: 08-02-2022 Notification of physician [facility] Start: 08-02-2022 Oxygen therapy [facility] Start: 08-02-2022 Patient referral to dietitian [facility] Start: 08-02-2022 Providing care according to standard [facility] Start: 08-02-2022 Provision of activity privileges [facility] Start: 08-02-2022 Referral to occupational therapist [facility] Start: 08-02-2022 Referral to service [facility] Start: 08-02-2022 Speech therapy assessment [facility] Start: 08-02-2022 Tobacco use cessation education [facility] Start: 08-02-2022 [facility] Start: 08-02-2022 Verification routine [facility] Start: 08-02-2022 Oxygen therapy [facility] Start: 08-02-2022 [facility] Start: 07-26-2022 Mammography MAM[facility] Start: 05-26-2021 ADVANCE DIRECTIVE DISCUSSION ADVANCE DIRECTIVE DISCUSSION [facility] Start: 03-20-2021 COVID-19 VACCINE (2 - Pfizer 3-dose series) COVID-19 VACCINE (2 - Pfizer 3-dose series) [facility] Start: 06-03-2019 Pneumococcal vaccination PNEUMOCOCCAL VACCINE SERIES (2 - PCV) [facility] Start: 2016 BONE DENSITY BONE DENSITY [facility] Start: 11-25-2012 Screening for malignant neoplasm of lung LUNG CANCER SCREENING [facility] Start: 2001 SHINGRIX VACCINE (1 of 2) SHINGRIX VACCINE (1 of 2) [facility] Start: 2001 Zoster vaccine hzv live for subcutaneous use ZOSTER (SHINGLES) VACCINE (1 of 2) [facility] Start: 1996 COLOGUARD (FIT-DNA) COLOGUARD (FIT-DNA) [facility] Start: 1996 Colonoscopy COLONOSCOPY [facility] Start: 1996 COLORECTAL CANCER SCREENING COLORECTAL CANCER SCREENING [facility] Start: [address] COLONOGRAPHY [facility] Start: 1996 DIABETES SCREEN DIABETES SCREEN [facility] Start: 1996 FECAL OCCULT BLOOD FECAL OCCULT BLOOD [facility] Start: 1996 LIPID SCREEN LIPID SCREEN [facility] Start: 1996 Screening for malignant neoplasm of colon COLORECTAL CANCER SCREENING DISCUSSION [facility] Start: 1996 SIGMOIDOSCOPY SIGMOIDOSCOPY [facility] Start: 1991 Lipid panel LIPID SCREENING [facility] Start: 1991 Screening for malignant neoplasm of breast MAMMOGRAM SCREENING DISCUSSION [facility] Start: 1972 Screening for malignant neoplasm of cervix CERVICAL CANCER SCREENING DISCUSSION [facility] Start: 1970 Urine microalbumin profile DTAP,TDAP,TD (1 - Tdap) [facility] Start: 1969 HEPATITIS C SCREENING HEPATITIS C SCREENING [facility] Start: 1963 Adult depression screening assessment DEPRESSION SCREENING [facility] Start: 1951 COVID-19 VACCINE (#1) COVID-19 VACCINE (#1) [facility] Start: 1950 Hepatitis C screening HEPATITIS C VIRUS SCREENING [facility] Start: 1951 Screening for osteoporosis DEXA SCAN DISCUSSION [facility] Bacteria identified in Unspecified specimen by Anaerobe culture [facility] Bacteria identified in Urine by Culture Urine Culture [facility] Basic metabolic 2008 panel with ionized calcium - Serum or Plasma [facility] CT angiography of co ronary arteries [facility] Erythrocyte mean corpuscular volume determination [facility] Hematocrit [Volume Fraction] of Blood [facility] Hemoglobin [Mass/vol ume] in Blood [facility] INR in Blood by Coagulation assay [facility] Leukocytes [#/volume ] in Blood [facility] Mean corpuscular hemoglobin concentration determination [facility] Mean corpuscular hemoglobin determination [facility] Natriuretic peptide. B prohormone N-Terminal [Mass/volume] in Serum or Plasma [facility] Neutrophil count [facility] Neutrophil percent differential count [facility] Patient Education [facility] Work Phone: Patient referral [facility] Work Phone: Platelets [#/volume] in Blood [facility] Red blood cell count [facility] Red cell distributio n width determination [facility] Wound microscopy, cu lture and sensitivities [facility] Immunizations Immunization Date Immunization Notes Care Provider Benny nelson 03-01-2024 Covid (Spikevax) Dr. Bean Bettencourt DO Work Phone: [facility] 03-05-2023 Pfizer Covid-19 (Comirnaty) Dr. Bean Bettencourt DO Work Phone: [facility] 03-05-2023 RSV Adult BiValent (Abrysvo) Dr. Bean Bettencourt DO Work Phone: [facility] 02-27-2023 influenza, injectabl e, quadrivalent, preservative free Dr. Bean Bettencourt Work Phone: [facility] 02-28-2022 Covid Pfizer Bivalen t Booster Dr. Bean Bettencourt DO Work Phone: [facility] 02-28-2022 influenza, injectabl e, quadrivalent, preservative free Dr. Bean Bettencourt DO Work Phone: [facility] 11-14-2021 Covid (Pfizer) Dr. Bean lawrence DO Work Phone: [facility] 02-27-2021 Covid (Pfizer) JEY KHANNA Work Phone: [facility] 02-27-2021 influenza, injectabl e, quadrivalent, preservative free Dr. Bean Bettencourt Work Phone: [facility] 02-27-2021 influenza, seasonal, injectable JEY KHANNA Work Phone: [facility] 08-19-2020 Covid (Pfizer) Dr. Bean lawrence DO Work Phone: [facility] 07-31-2020 Covid (Pfizer) Dr. Bean lawrence DO Work Phone: [facility] 02-17-2020 influenza, injectabl e, quadrivalent, preservative free Dr. Bean Bettencourt Work Phone: [facility] 02-17-2020 influenza, seasonal, injectable JEY KHANNA Work Phone: [facility] 01-19-2020 tetanus toxoid, redu mariaelena diphtheria toxoid, and acellular pertussis vaccine, adsorbed JEY KHANNA Work Phone: [facility] 01-19-2020 diphtheria, tetanus toxoids and acellular pertussis vaccine, unspecified formulation JEY KHANNA Work Phone: [facility] Work Phone: 01-19-2019 influenza, high dose seasonal, preservative-free Dr. Bean Bettencourt DO Work Phone: [facility] 06-03-2018 pneumococcal polysaccharide vaccine, 23 valent No [facility] Work Phone: 06-03-2018 pneumococcal vaccine , unspecified formulation; Translations: [Pneumovax-23 (pneumococcal 23-saumya ps vaccine) 25 mcg/0.5 mL injection solution] No Pcp [facility] Work Phone: 02-18-2018 influenza, high dose seasonal, preservative-free Dr. Bean Bettencourt DO Work Phone: [facility] 04-30-2017 pneumococcal polysaccharide vaccine, [address] Bean Bettencourt DO Work Phone: [facility] 03-20-2015 influenza, injectabl e, quadrivalent, preservative free Dr. Bean Bettencourt DO Work Phone: [facility] 03-01-2014 influenza, seasonal, injectable, preservative free Dr. Bean Bettencourt DO Work Phone: [facility] 04-03-2012 pneumococcal vaccine , unspecified formulation Dr. Bean Bettencourt DO Work Phone: [facility] Payers Date Payer Category Payer Unknown [id number] 2024 Self-pay [id number] 2022 [employer] ( and others) [facility] [id number] 2022-Present [address] [place] [address] [id number] 2022 Medicare MEDICARE MEDICAR E A AND B [id number] 2022-Present [address] [place] [address] [id number] 2013 Medicare MEDICARE MEDICAR E A AND B [id number] 2013-Present [phone] [address] [address] [place] [address] Medicare [id number] 2.7.3.915260.315 2013 Medicare [id number] 1997 Unknown [facility] [id number] 1997-Present [phone] [address] [address] [place] [address] Indemnity [id number] [id number] 1997 Unknown [id number] 1950 Unknown [id number] 2.16.840.1.595722.3.579. 2.983 Unknown [id number] 2.16.840.1.410252.3.579. 2.462 Unknown [id number] 2.16.840.1.095712.3.579. 2.462 Unknown [id number] 2.16.840.1.912885.3.579. 2.462 Unknown [id number] 2.16.840.1.322470.3.579. 2.462 Unknown [id number] 2.16.840.1.369222.3.579. 2.462 Unknown [id number] 2.16.840.1.943367.3.579. 2.462 Unknown [id number] 2.16.840.1.551259.3.579. 2.462 Unknown [id number] 2.16.840.1.506998.3.579. 2.462 Unknown [id number] 2.16.840.1.781305.3.579. 2.462 Unknown [id number] 2.16.840.1.652605.3.579. 2.462 Unknown [id number] 2.16.840.1.523186.3.579. 2.462 Unknown [id number] 2.16.840.1.657023.3.579. 2.462 Unknown [id number] 2.16.840.1.752346.3.579. 2.462 Unknown [id number] 2.16.840.1.124503.3.579. 2.462 Unknown [id number] 2.16.840.1.195320.3.579. 2.462 Unknown [id number] 2.16.840.1.712926.3.579. 2.462 Unknown [id number] 2.16.840.1.766692.3.579. 2.462 Unknown [id number] 2.16840.1.974506.3.579. 2.462 Unknown [id number] 2.840.1.420256.3.579. 2.462 Unknown [id number] 2.840.1.034548.3.579. 2.462 Unknown [id number] 2.840.1.863664.3.579. 2.462 Unknown [id number] 2.840.1.423631.3.579. 2.462 Unknown [id number] 2.840.1.065042.3.579. 2.462 Unknown [id number] 2.840.1.569719.3.579. 2.462 Unknown [id number] 2.840.1.197510.3.579. 2.462 Unknown [id number] 2.840.1.179676.3.579. 2.462 Unknown [id number] 2.840.1.621335.3.579. 2.462 Unknown [id number] 2.840.1.752578.3.579. 2.462 Unknown [id number] 2.840.1.752065.3.579. 2.462 Unknown [id number] 2.840.1.878764.3.579. 2.462 Unknown [id number] 2.16.840.1.705724.3.579. 2.462 Unknown [id number] 2.840.1.935269.3.579. 2.462 Unknown [id number] 2.16.840.1.971248.3.579. 2.462 Unknown [id number] 2.16.840.1.843054.3.579. 2.462 Unknown [id number] 2.16.840.1.582517.3.579. 2.462 Unknown [id number] 2.16.840.1.845294.3.579. 2.462 Unknown [id number] 2.16.840.1.251812.3.579. 2.462 Unknown [id number] 2.16.840.1.287298.3.579. 2.462 Social History Date Type Detail Facility Start: 07-23-2019 End: 01-19-2025 Ex-smoker (finding) [facility] Start: 1950 Sex Assigned At Female A 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 Start: 05-17-2022 Alcohol intake Current drinke r of alcohol (finding) [facility] Start: 08-22-2024 Sex Female (finding) [facility] Medical Equipment Procedure Code Equipment Code Equipment Origin al Text Equipment Identifier Dates TRIATH CRUCIATE RETAINING FEMO FDA Start: 08-09-2019 TRIATH TIBIAL BEARING INSERT C FDA Start: 08-09-2019 TRIATH TRI ASYMMETRIC PATELLA FDA Start: 08-09-2019 TRIATH TRI TIBIA L COMPONENT FDA Start: 08-09-2019 TRIATH CRUCIATE RETAINING FEMO FDA Start: 08-09-2019 TRIATH TIBIAL BEARING INSERT C FDA Start: 08-09-2019 TRIATH TRI ASYMMETRIC PATELLA FDA Start: 08-09-2019 TRIATH TRI TIBIA L COMPONENT FDA Start: 08-09-2019 TRIATH CRUCIATE RETAINING FEMO FDA Start: 08-09-2019 TRIATH TIBIAL BEARING INSERT C FDA Start: 08-09-2019 TRIATH TRI ASYMMETRIC PATELLA FDA Start: 08-09-2019 TRIATH TRI TIBIA L COMPONENT FDA Start: 08-09-2019 TRIATH CRUCIATE RETAINING FEMO FDA Start: 08-09-2019 TRIATH TIBIAL BEARING INSERT C FDA Start: 08-09-2019 TRIATH TRI ASYMMETRIC PATELLA FDA Start: 08-09-2019 TRIATH TRI TIBIA L COMPONENT FDA Start: 08-09-2019 TRIATH CRUCIATE RETAINING FEMO FDA Start: 08-09-2019 TRIATH TIBIAL BEARING INSERT C FDA Start: 08-09-2019 TRIATH TRI ASYMMETRIC PATELLA FDA Start: 08-09-2019 TRIATH TRI TIBIA L COMPONENT FDA Start: 08-09-2019 TRIATH CRUCIATE RETAINING FEMO FDA Start: 08-09-2019 TRIATH TIBIAL BEARING INSERT C FDA Start: 08-09-2019 TRIATH TRI ASYMMETRIC PATELLA FDA Start: 08-09-2019 TRIATH TRI TIBIA L COMPONENT FDA Start: 08-09-2019 TRIATH CRUCIATE RETAINING FEMO FDA Start: 08-09-2019 TRIATH TIBIAL BEARING INSERT C FDA Start: 08-09-2019 TRIATH TRI ASYMMETRIC PATELLA FDA Start: 08-09-2019 TRIATH TRI TIBIA L COMPONENT FDA Start: 08-09-2019 TRIATH CRUCIATE RETAINING FEMO FDA Start: 08-09-2019 TRIATH TIBIAL BEARING INSERT C FDA Start: 08-09-2019 TRIATH TRI ASYMMETRIC PATELLA FDA Start: 08-09-2019 TRIATH TRI TIBIA L COMPONENT FDA Start: 08-09-2019 TRIATH CRUCIATE RETAINING FEMO FDA Start: 08-09-2019 TRIATH TIBIAL BEARING INSERT C FDA Start: 08-09-2019 TRIATH TRI ASYMMETRIC PATELLA FDA Start: 08-09-2019 TRIATH TRI TIBIA L COMPONENT FDA Start: 08-09-2019 TRIATH CRUCIATE RETAINING FEMO FDA Start: 08-09-2019 TRIATH TIBIAL BEARING INSERT C FDA Start: 08-09-2019 TRIATH TRI ASYMMETRIC PATELLA FDA Start: 08-09-2019 TRIATH TRI TIBIA L COMPONENT FDA Start: 08-09-2019 TRIATH CRUCIATE RETAINING FEMO FDA Start: 08-09-2019 TRIATH TIBIAL BEARING INSERT C FDA Start: 08-09-2019 TRIATH TRI ASYMMETRIC PATELLA FDA Start: 08-09-2019 TRIATH TRI TIBIA L COMPONENT FDA Start: 08-09-2019 TRIATH CRUCIATE RETAINING FEMO FDA Start: 08-09-2019 TRIATH TIBIAL BEARING INSERT C FDA Start: 08-09-2019 TRIATH TRI ASYMMETRIC PATELLA FDA Start: 08-09-2019 TRIATH TRI TIBIA L COMPONENT FDA Start: 08-09-2019 TRIATH CRUCIATE RETAINING FEMO FDA Start: 08-09-2019 TRIATH TIBIAL BEARING INSERT C FDA Start: 08-09-2019 TRIATH TRI ASYMMETRIC PATELLA FDA Start: 08-09-2019 TRIATH TRI TIBIA L COMPONENT FDA Start: 08-09-2019 TRIATH CRUCIATE RETAINING FEMO FDA Start: 08-09-2019 TRIATH TIBIAL BEARING INSERT C FDA Start: 08-09-2019 TRIATH TRI ASYMMETRIC PATELLA FDA Start: 08-09-2019 TRIATH TRI TIBIA L COMPONENT FDA Start: 08-09-2019 TRIATH CRUCIATE RETAINING FEMO FDA Start: 08-09-2019 TRIATH TIBIAL BEARING INSERT C FDA Start: 08-09-2019 TRIATH TRI ASYMMETRIC PATELLA FDA Start: 08-09-2019 TRIATH TRI TIBIA L COMPONENT FDA Start: 08-09-2019 TRIATH CRUCIATE RETAINING FEMO FDA Start: 08-09-2019 TRIATH TIBIAL BEARING INSERT C FDA Start: 08-09-2019 TRIATH TRI ASYMMETRIC PATELLA FDA Start: 08-09-2019 TRIATH TRI TIBIA L COMPONENT FDA Start: 08-09-2019 TRIATH CRUCIATE RETAINING FEMO FDA Start: 08-09-2019 TRIATH TIBIAL BEARING INSERT C FDA Start: 08-09-2019 TRIATH TRI ASYMMETRIC PATELLA FDA Start: 08-09-2019 TRIATH TRI TIBIA L COMPONENT FDA Start: 08-09-2019 TRIATH CRUCIATE RETAINING FEMO FDA Start: 08-09-2019 TRIATH TIBIAL BEARING INSERT C FDA Start: 08-09-2019 TRIATH TRI ASYMMETRIC PATELLA FDA Start: 08-09-2019 TRIATH TRI TIBIA L COMPONENT FDA Start: 08-09-2019 TRIATH CRUCIATE RETAINING FEMO FDA Start: 08-09-2019 TRIATH TIBIAL BEARING INSERT C FDA Start: 08-09-2019 TRIATH TRI ASYMMETRIC PATELLA FDA Start: 08-09-2019 TRIATH TRI TIBIA L COMPONENT FDA Start: 08-09-2019 TRIATH CRUCIATE RETAINING FEMO FDA Start: 08-09-2019 TRIATH TIBIAL BEARING INSERT C FDA Start: 08-09-2019 TRIATH TRI ASYMMETRIC PATELLA FDA Start: 08-09-2019 TRIATH TRI TIBIA L COMPONENT FDA Start: 08-09-2019 TRIATH CRUCIATE RETAINING FEMO FDA Start: 08-09-2019 TRIATH TIBIAL BEARING INSERT C FDA Start: 08-09-2019 TRIATH TRI ASYMMETRIC PATELLA FDA Start: 08-09-2019 TRIATH TRI TIBIA L COMPONENT FDA Start: 08-09-2019 TRIATH CRUCIATE RETAINING FEMO FDA Start: 08-09-2019 TRIATH TIBIAL BEARING INSERT C FDA Start: 08-09-2019 TRIATH TRI ASYMMETRIC PATELLA FDA Start: 08-09-2019 TRIATH TRI TIBIA L COMPONENT FDA Start: 08-09-2019 TRIATH CRUCIATE RETAINING FEMO FDA Start: 08-09-2019 TRIATH TIBIAL BEARING INSERT C FDA Start: 08-09-2019 TRIATH TRI ASYMMETRIC PATELLA FDA Start: 08-09-2019 TRIATH TRI TIBIA L COMPONENT FDA Start: 08-09-2019 TRIATH CRUCIATE RETAINING FEMO FDA Start: 08-09-2019 TRIATH TIBIAL BEARING INSERT C FDA Start: 08-09-2019 TRIATH TRI ASYMMETRIC PATELLA FDA Start: 08-09-2019 TRIATH TRI TIBIA L COMPONENT FDA Start: 08-09-2019 TRIATH CRUCIATE RETAINING FEMO FDA Start: 08-09-2019 TRIATH TIBIAL BEARING INSERT C FDA Start: 08-09-2019 TRIATH TRI ASYMMETRIC PATELLA FDA Start: 08-09-2019 TRIATH TRI TIBIA L COMPONENT FDA Start: 08-09-2019 TRIATH CRUCIATE RETAINING FEMO FDA Start: 08-09-2019 TRIATH TIBIAL BEARING INSERT C FDA Start: 08-09-2019 TRIATH TRI ASYMMETRIC PATELLA FDA Start: 08-09-2019 TRIATH TRI TIBIA L COMPONENT FDA Start: 08-09-2019 TRIATH CRUCIATE RETAINING FEMO FDA Start: 08-09-2019 TRIATH TIBIAL BEARING INSERT C FDA Start: 08-09-2019 TRIATH TRI ASYMMETRIC PATELLA FDA Start: 08-09-2019 TRIATH TRI TIBIA L COMPONENT FDA Start: 08-09-2019 TRIATH CRUCIATE RETAINING FEMO FDA Start: 08-09-2019 TRIATH TIBIAL BEARING INSERT C FDA Start: 08-09-2019 TRIATH TRI ASYMMETRIC PATELLA FDA Start: 08-09-2019 TRIATH TRI TIBIA L COMPONENT FDA Start: 08-09-2019 TRIATH CRUCIATE RETAINING FEMO FDA Start: 08-09-2019 TRIATH TIBIAL BEARING INSERT C FDA Start: 08-09-2019 TRIATH TRI ASYMMETRIC PATELLA FDA Start: 08-09-2019 TRIATH TRI TIBIA L COMPONENT FDA Start: 08-09-2019 TRIATH CRUCIATE RETAINING FEMO FDA Start: 08-09-2019 TRIATH TIBIAL BEARING INSERT C FDA Start: 08-09-2019 TRIATH TRI ASYMMETRIC PATELLA FDA Start: 08-09-2019 TRIATH TRI TIBIA L COMPONENT FDA Start: 08-09-2019 TRIATH CRUCIATE RETAINING FEMO FDA Start: 08-09-2019 TRIATH TIBIAL BEARING INSERT C FDA Start: 08-09-2019 TRIATH TRI ASYMMETRIC PATELLA FDA Start: 08-09-2019 TRIATH TRI TIBIA L COMPONENT FDA Start: 08-09-2019 TRIATH CRUCIATE RETAINING FEMO FDA Start: 08-09-2019 TRIATH TIBIAL BEARING INSERT C FDA Start: 08-09-2019 TRIATH TRI ASYMMETRIC PATELLA FDA Start: 08-09-2019 TRIATH TRI TIBIA L COMPONENT FDA Start: 08-09-2019 TRIATH CRUCIATE RETAINING FEMO FDA Start: 08-09-2019 TRIATH TIBIAL BEARING INSERT C FDA Start: 08-09-2019 TRIATH TRI ASYMMETRIC PATELLA FDA Start: 08-09-2019 TRIATH TRI TIBIA L COMPONENT FDA Start: 08-09-2019 TRIATH CRUCIATE RETAINING FEMO FDA Start: 08-09-2019 TRIATH TIBIAL BEARING INSERT C FDA Start: 08-09-2019 TRIATH TRI ASYMMETRIC PATELLA FDA Start: 08-09-2019 TRIATH TRI TIBIA L COMPONENT FDA Start: 08-09-2019 TRIATH CRUCIATE RETAINING FEMO FDA Start: 08-09-2019 TRIATH TIBIAL BEARING INSERT C FDA Start: 08-09-2019 TRIATH TRI ASYMMETRIC PATELLA FDA Start: 08-09-2019 TRIATH TRI TIBIA L COMPONENT FDA Start: 08-09-2019 TRIATH CRUCIATE RETAINING FEMO FDA Start: 08-09-2019 TRIATH TIBIAL BEARING INSERT C FDA Start: 08-09-2019 TRIATH TRI ASYMMETRIC PATELLA FDA Start: 08-09-2019 TRIATH TRI TIBIA L COMPONENT FDA Start: 08-09-2019 TRIATH CRUCIATE RETAINING FEMO FDA Start: 08-09-2019 TRIATH TIBIAL BEARING INSERT C FDA Start: 08-09-2019 TRIATH TRI ASYMMETRIC PATELLA FDA Start: 08-09-2019 TRIATH TRI TIBIA L COMPONENT FDA Start: 08-09-2019 TRIATH CRUCIATE RETAINING FEMO FDA Start: 08-09-2019 TRIATH TIBIAL BEARING INSERT C FDA Start: 08-09-2019 TRIATH TRI ASYMMETRIC PATELLA FDA Start: 08-09-2019 TRIATH TRI TIBIA L COMPONENT FDA Start: 08-09-2019 TRIATH CRUCIATE RETAINING FEMO FDA Start: 08-09-2019 TRIATH TIBIAL BEARING INSERT C FDA Start: 08-09-2019 TRIATH TRI ASYMMETRIC PATELLA FDA Start: 08-09-2019 TRIATH TRI TIBIA L COMPONENT FDA Start: 08-09-2019 Goals Date Patient Goal Desired Activity /State Functional Status Date Assessment Result Facility 08-02-2022 Functional status Activity Ability Indepe ndent [facility] Work Phone: Mental Status Date Assessment Result Facility 08-22-2024 Cognitive function Appropriate;Cooperativ e [facility] Work Phone: 08-02-2022 Cognitive function Voice/Name [facility] Work Phone: 08-02-2022 Cognitive function Voice/Name [facility] Work Phone: 08-02-2022 Cognitive function Voice/Name [facility] Work Phone: Clinical Notes 07-16-2021 to 12-12-2024 Note Date & Type Note Facility 12-12-2024 Progress note [facility] 12-12-2024 Progress note Note Date/Time December 12, 2024 1:32pm [facility] [address], [address] [place] [address] OFFICE VISIT Date of Service: 12/12/24 MR#: [id number] Acct: [id number] Name: VALERY DEVINE Rep #: [id number] : 1950 Provider: TY Barragan Age/Sex: 74/F [place] [facility] [place] Status: Signed Intake Vital Signs 11/15/24 12:12/12/24 13:12 Height 5 ft 4 in 5 ft 4 in Weight: 168 lb 6 oz BMI 28.9 BP 124/80 H Blood Pressure Location Lt brachial Position Sitting Respiration 16 Pulse 64 Pulse Source Monitor Pulse Oximetry (%) 99 Oxygen Delivery Method room air Intake Visit Reasons: R L INJURY Chief Complaint: Right leg injury Is patient in pain?: Yes (Right leg from injury ) Allergies cephalexin Allergy (Intermediate, Verified 12/07/24 13:49) Rash nitrofurantoin Allergy (Intermediate, Verified 12/07/24 13:49) Rash Sulfa (Sulfonamide Antibiotics) Allergy (Intermediate, Verified 12/07/24 13:49) sores in mouth amoxicillin (From Amoxil) Adverse Reaction (Intermediate, Verified 12/07/24 13:49) yeast & bladder infections Medications ?Medication ?Instructions ?Recorded ?Confirmed ?Type atorvastatin 10 mg tablet 10 mg PO QHS cholesterol 12/12/24 History diclofenac sodium 1 % topical gel 4 g topical .QID PRN Pain Or Fever 07/27/21 12/12/24 Rx #100 grams albuterol sulfate 90 mcg/actuation 1 - 2 puff inhalati on Q6H PRN 03/10/22 12/12/24 Rx aerosol inhaler (ProAir HFA) shortness of breath or wh eezing #8.5 grams ergocalciferol (vitamin D2) 1,250 50,000 unit PO QWEEK supplement 01/13/23 12/12/24 Rx mcg (50,000 unit) capsule #20 caps vibegron 75 mg tablet 75 mg PO DAILY 02/27/2311/24 History magnesium oxide 400 mg PO DAILY #90 caps 12/12/24 Rx codeine 10 mg-guaifenesin 100 mg/5 See Rx Instructions PO Q6H PRN 08/13/24 12/12/24 Rx mL oral liquid cough #120 mL esomeprazole magnesium 40 mg 40 mg PO QDAY gerd #90 ca ps 09/06/24 12/12/24 Rx capsule,delayed release ipratropium bromide 21 mcg (0.03 2 spray intranasal BI D-TID PRN 11/04/24 12/12/24 Rx %) nasal spray postnasal drainage #30 mL acetaminophen 500 mg tablet 1,000 mg PO Q8 PRN 5 12/12/24 History Have you fallen in the past year?: Yes PFSH Medical History Abnormal bruising Impacted cerumen, left ear Dysuria HLD (hyperlipidemia) Bruises easily History of shingles Vitamin D deficiency Sciatica Lumbar radiculopathy GERD (gastroesophageal reflux disease) Lung cancer Anxiety Surgical History History of total left knee replacement History of bilateral cataract extraction History of lateral meniscus repair of left knee History of cystoscopy history of bunionectomy History of colonoscopy History of lobectomy of lung History of back surgery History of esophagogastroduodenoscopy (EGD) History of section Family History Aunt Colon cancer Diabetes Mother Thyroid disorder Heart disease Son Hypercholesteremia Grandmother Heart disease Father COPD (chronic obstructive pulmonary disease) Social History Smoking Status: Former smoker quit date: 05/26/08 Tobacco: How many years used: 40 alcohol intake: current alcohol intake frequency: holidays/special occasions only substance use type: does not use HPI HPI Chief Complaint: Right leg injury Details: VALERY DEVINE, is a 74 F who presents to the office today for swelling concerns.She was seen in clinic on 12/07/2024 for this injury. Skin tear and signs of infection reviewed with her and conservative lxle-onz-inzhsoi treatment recommended. ROS Const Constitutional: No body ache, chills, fatigue, fever(s), headache(s) or change in appetite Eyes Eyes: No blurry vision, change in vision, double vision, irritation, discharge, vision loss, dry eyes, bulging eyes, floaters, visual disturbances, eye pain, Light sensitivity, spots in vision, tunnel vision or other ENT ENT: No ear or mastoid pain, ear discharge, ear pressure, tinnitus, dizziness/vertigo, nosebleed/epistaxis, nasal congestion, nose pain, sinus pressure, sinus pain, nasal discharge, post nasal drip, headache(s), facial pain, dental pain, difficulty swallowing, bad breath, hoarseness, lip swelling, mouth lesions, mouth pain, neck pain, sore throat, tongue swelling or throat swelling Resp Respiratory: No cough, change in phlegm color, chest congestion, hemoptysis, pain on inspiration, shortness of breath, pain with cough, stridor or wheezing Cardio Cardiology: No chest pain at rest, chest pain with exertion, shortness of breath, dyspnea on exertion or lightheadedness Gastro GI: No abdominal pain, change in bowel habits or difficulty swallowing Genitourinary-Female: No burning urination or urinary frequency Musc Musculoskeletal: No joint pain or neck pain Skin Skin: No rash Neuro Neurology: No headache(s) or visual disturbances Psych Psychiatric: No change in appetite Endo Endocrine: No fatigue Aller/Imm Allergy/Immunologic: No lip swelling, throat swelling, tongue swelling or wheezing Exam Const General: cooperative, healthy appearing, comfortable and no acute distress Orientation: alert, awake and oriented x3 HENMT Head: normal to inspection and normocephalic Ears: hearing grossly normal bilaterally, external ears normal and TM's normal bilaterally Nose: external nose normal, nares normal and no nasal discharge Face and sinus: normal facial exam and sinuses nontender Mouth: oral mucosae normal, lip normal, tongue normal, oropharynx normal and moist mucous membranes Throat: posterior oropharynx normal, tonsils normal, uvula midline and no postnasal drainage Eyes General: appearance normal, both eyes and all related structures Neck Neck: normal visual inspection and no lymphadenopathy Carotids: normal carotid upstroke Lymphatic: no lymphadenopathy noted Chest Chest palpation & inspection: normal inspection of the chest Resp Effort & Inspection: normal respiratory effort, able to speak in complete sentences, symmetric chest movement, no cough and no stridor Auscultation: Bilateral: Clear to Auscultation Cardio Rate: regular rate Rhythm: regular rhythm Heart Sounds: S1 normal, S2 normal and no murmurs GI Inspection: normal to inspection Auscultation: normal bowel sounds Palpation: soft Skin General: no rashes or lesions noted and other (two skin tears. Lower extremity edema 1+. no redness or warmth. ) Neuro Speech: speech normal Extrem General: normal to inspection and capillary refill normal Coding Level of Care Code Off vis,est,level 2 Diagnoses Edema, unspecified type R60.9 Edema type: unspecified Assessment and Plan Assessment and Plan (1) Edema: Status: Acute Qualifiers: Edema type: unspecified Qualified Code(s): R60.9 - Edema, unspecified Plan: This is thought to be injury related. She wishes to further rule out cardiac or kidney issues. Did review is unlikely given clinical presentation. She wishes for lab-work. Will order testing and contact patient. Encouraged to get plenty of rest, drink lots of clear liquids, and use Tylenol or Ibuprofen (unless contraindicated) for fever and comfort. Patient also educated on other symptomatic management techniques. To be seen in 7-10 days if no improvement; sooner if worsening of symptoms.? Patient advised of potential red flags and when appropriate to report to the ED.? Patient verbalized understanding and agreement with all the above. Orders: Orders Basic Metabolic Profile (BMP) Today R60.9 - Edema, unspecified Pro- Brain NATRIURETIC PEPTIDE Today R06.09 - Other forms of dyspnea, R60.9 - Edema, unspecified Clinical Quality Measures Falls Risk Screening/Assistive Devices Have you fallen in the past year?: Yes 12/12/24 1333 <Electronically signed by Isauro CRAWFORD> Date _ Isauro CRAWFORD Cosigner Signature: Date (if applicable) CC: Dr. Bean Bettencourt, ~ [facility] Work Phone: [phone]) 891-341107-15-2025 Radiology Diagnostic study note [facility] Imaging Services [address] [place], [place] [address] Tibia & Fibula 2 Views MR#: [id number] Acct: [id number] Name: VALERY DEVINE Rep #: [id number] : 1950 F 74 From: Suzanna Goodwin MD PCP: Dr. Bean Bettencourt, Status: RE G CLI Study:Tibia & Fibula 2 Views Date of Exam: 12/07/24 Exam# [id number] Ordering Dr: St samantha Kirby PA PA EXAM: XR Right Tibia and Fibula, 2 Views CLINICAL INDICATION: PAIN TECHNIQUE: Frontal and lateral views of the right tibia and fibula. COMPARISON: No relevant prior studies available. FINDINGS: BONES/JOINTS: Unremarkable. No acute fracture. No dislocation. SOFT TISSUES: Unremarkable. No radiopaque foreign body. RAD/Tibia & Fibula 2 Views IMPRESSION: No acute fracture. Reading Location: [facility] CC: Dr. Bean Bettencourt DO; JEY Jimenez ~ Manager Recruiting: Signed [facility]07-15-2025 Radiology Diagnostic study note [facility] Imaging Services [address] [place] [address] Knee 3 Views MR#: [id number] Acct: [id number] Name: VALERY DEVINE Rep #: [id number] : 1950 F 74 From: Suzanna Goodwin MD PCP: Dr. Bean Bettencourt DO Status: RE G CLI Study:Knee 3 Views Date of Exam: 5 Exam# [id number] Ordering Dr: St samantha Kirby PA PA EXAM: XR Right Knee, 3 Views CLINICAL INDICATION: PAIN TECHNIQUE: Three views of the right knee. COMPARISON: No relevant prior studies available. FINDINGS: BONES/JOINTS: Moderate degenerative changes of the medial compartment of the knee joint. No acute fracture. No dislocation. SOFT TISSUES: Unremarkable. RAD/Knee 3 Views IMPRESSION: Degenerative changes as above. Reading Location: [facility] CC: Dr. Bean Bettencourt DO; JEY Jimenez ~ Manager Recruiting: Signed [facility]06-23-2025 [facility] [address] [place] [address]. [place] [address] OFFICE VISIT Date of Service: 11/15/24 1158 MR#: [id number] Acct: [id number] Name: VALERY DEVINE Rep #: [id number] : 1950 From: Luz Elena joaquin MD Age/Sex: 74/F [place] [facility] [place] Status: Signed HPI Subjective Date of Service 11/15/24 Chief Complaint Bruises History of Present Illness 74-year-old female with progressively increasing easy bruising on the extremities over the course of the past few years. She is unaware of any other external bleeding and has had no excessive bleeding with prior surgical procedures. She is not on any blood thinning or antiplatelet agents. She enjoys swimming and staying in the sun. [facility] Medical History Abnormal bruising Impacted cerumen, left ear Dysuria HLD (hyperlipidemia) Bruises easily History of shingles Vitamin D deficiency Sciatica Lumbar radiculopathy GERD (gastroesophageal reflux disease) Lung cancer Anxiety Surgical History History of total left knee replacement History of bilateral cataract extraction History of lateral meniscus repair of left knee History of cystoscopy history of bunionectomy History of colonoscopy History of lobectomy of lung History of back surgery History of esophagogastroduodenoscopy (EGD) History of section Family History Aunt Colon cancer Diabetes Mother Thyroid disorder Heart disease Son Hypercholesteremia Grandmother Heart disease Father COPD (chronic obstructive pulmonary disease) Social History Smoking Status: Former smoker quit date: 05/26/08 Tobacco: How many years used: 40 alcohol intake: current alcohol intake frequency: holidays/special occasions only substance use type: does not use ROS ROS Narrative See note of November 08, 2024 no change Intake Vital Signs 11/08/24 15:14 11/15/24 11:58 11/15/24 12:01 Height 5 ft 4 in 5 ft 4 in 5 ft 4 in Weight: 73.482 kg 73.936 kg BMI 27.8 27.9 BP 102/69 112/75 Blood Pressure Location Rt brachial Lt brachial Position Sitting Sitting Respiration 16 16 Pulse 84 76 Pulse Source Monitor Monitor Temp 97.9 F 97.1 F L Temperature Source Temporal Artery Temporal Artery Pulse Oximetry (%) 95 95 Oxygen Delivery Method room air room air Intake Is patient in pain?: No Allergies cephalexin Allergy (Intermediate, Verified 11/15/24 12:00) Rash nitrofurantoin Allergy (Intermediate, Verified 11/15/24 12:00) Rash Sulfa (Sulfonamide Antibiotics) Allergy (Intermediate, Verified 11/15/24 12:00) sores in mouth amoxicillin (From Amoxil) Adverse Reaction (Intermediate, Verified 11/15/24 12:00) yeast & bladder infections Medications ?Medication ?Instructions ?Recorded ?Confirmed ?Type atorvastatin 10 mg tablet 10 mg PO QHS cholesterol 11/15/24 History diclofenac sodium 1 % topical gel 4 g topical .QID PRN Pain Or Fever 07/27/21 11/15/24 Rx #100 grams albuterol sulfate 90 mcg/actuation 1 - 2 puff inhalati on Q6H PRN 03/10/22 11/15/24 Rx aerosol inhaler (ProAir HFA) shortness of breath or wh eezing #8.5 grams ergocalciferol (vitamin D2) 1,250 50,000 unit PO QWEEK supplement 01/13/23 11/15/24 Rx mcg (50,000 unit) capsule #20 caps vibegron 75 mg tablet 75 mg PO DAILY 02/27/2310/25 History magnesium oxide 400 mg PO DAILY #90 caps 11/15/24 Rx codeine 10 mg-guaifenesin 100 mg/5 See Rx Instructions PO Q6H PRN 08/13/24 11/15/24 Rx mL oral liquid cough #120 mL esomeprazole magnesium 40 mg 40 mg PO QDAY gerd #90 ca ps 09/06/24 11/15/24 Rx capsule,delayed release ipratropium bromide 21 mcg (0.03 2 spray intranasal BI D-TID PRN 11/04/24 11/15/24 Rx %) nasal spray postnasal drainage #30 mL acetaminophen 500 mg tablet 1,000 mg PO Q8 PRN 5 11/15/24 History Have you fallen in the past year?: No Central Venous Access Central Venous Access: No Laboratory Tests 08/01/22 08/02/22 02/27/23 14:31 00:58 16:00 Plt Count 206 219 PT 12.8 12.8 13.4 APTT 29.0 08/15/23 08/22/24 11/08/24 08:19 09:20 15:37 Plt Count 234 200 245 PT 12.9 APTT 25.5 Exam Physical Exam Narrative See note of November 08, 2024 Coding Level of Care Code Off vis,est,level 3 Exam Problem Focused Diagnoses Abnormal bruising R23.3 Assessment and Plan Assessment and Plan (1) Abnormal bruising: Status: Chronic Plan 74-year-old female with increased bruising, chronic, years, extremities but not trunk. No past or family history of bleeding disorder. She is not on any bloodthinners or antiplatelet agents. Repeatedchecks of platelet counts PT PTT were all normal (see lab). This is most consistent with age-related purpura. Plan: 1- No intervention from hematology. 2-use Tylenol for aches and pains avoid use of NSAIDs if possible. Luz Elena Hatch MD Hand I Tube Bender, [facility] Divisions of Medical Oncology & Hematology Department of Internal Medicine [place] [id number] . This note was generated using a voice recognition system software. Although itwas reviewed by the author prior to finalization, it may still contain incorrectwords, spelling, and punctuation that were not noted when reviewing prior to saving. If a clinically significant typo or inaccurately typed phrase is noted, please notify the author. Clinical Quality Measures Falls Risk Screening/Assistive Devices Have you fallen in the past year?: No 11/15/24 1221 arnoldo VELAZQUEZ> Date _ Luz Elena Hatch MD Cosigner Signature: Date (if applicable) CC: Dr. Bean Bettencourt, DO ~ [facility]06-23-2025 Progress note Author Luz Elena Hatch [facility] Note Date/Time November 15, 2024 12:2 1pm [facility] [address] [place] [address] OFFICE VISIT Date of Service: 11/15/24 1158 MR#: [id number] Acct: [id number] Name: VALERY DEVINE Rep #: [id number] : 1950 From: Luz Elena joaquin MD Age/Sex: 74/F [place] [facility] [place]: Signed HPI Subjective Date of Service 11/15/24 Chief Complaint Bruises History of Present Illness 74-year-old female with progressively increasing easy bruising on the extremities over the course of the past few years. She is unaware of any other external bleeding and has had no excessive bleeding with prior surgical procedures. She is not on any blood thinning or antiplatelet agents. She enjoys swimming and staying in the sun. [facility] Medical History Abnormal bruising Impacted cerumen, left ear Dysuria HLD (hyperlipidemia) Bruises easily History of shingles Vitamin D deficiency Sciatica Lumbar radiculopathy GERD (gastroesophageal reflux disease) Lung cancer Anxiety Surgical History History of total left knee replacement History of bilateral cataract extraction History of lateral meniscus repair of left knee History of cystoscopy history of bunionectomy History of colonoscopy History of lobectomy of lung History of back surgery History of esophagogastroduodenoscopy (EGD) History of section Family History Aunt Colon cancer Diabetes Mother Thyroid disorder Heart disease Son Hypercholesteremia Grandmother Heart disease Father COPD (chronic obstructive pulmonary disease) Social History Smoking Status: Former smoker quit date: 05/26/08 Tobacco: How many years used: 40 alcohol intake: current alcohol intake frequency: holidays/special occasions only substance use type: does not use ROS ROS Narrative See note of November 08, 2024 no change Intake Vital Signs 11/08/24 15:14 11/15/24 11:58 11/15/24 12:01 Height 5 ft 4 in 5 ft 4 in 5 ft 4 in Weight: 73.482 kg 73.936 kg BMI 27.8 27.9 BP 102/69 112/75 Blood Pressure Location Rt brachial Lt brachial Position Sitting Sitting Respiration 16 16 Pulse 84 76 Pulse Source Monitor Monitor Temp 97.9 F 97.1 F L Temperature Source Temporal Artery Temporal Artery Pulse Oximetry (%) 95 95 Oxygen Delivery Method room air room air Intake Is patient in pain?: No Allergies cephalexin Allergy (Intermediate, Verified 11/15/24 12:00) Rash nitrofurantoin Allergy (Intermediate, Verified 11/15/24 12:00) Rash Sulfa (Sulfonamide Antibiotics) Allergy (Intermediate, Verified 11/15/24 12:00) sores in mouth amoxicillin (From Amoxil) Adverse Reaction (Intermediate, Verified 11/15/24 12:00) yeast & bladder infections Medications ?Medication ?Instructions ?Recorded ?Confirmed ?Type atorvastatin 10 mg tablet 10 mg PO QHS cholesterol 11/15/24 History diclofenac sodium 1 % topical gel 4 g topical .QID PRN Pain Or Fever 07/27/21 11/15/24 Rx #100 grams albuterol sulfate 90 mcg/actuation 1 - 2 puff inhalati on Q6H PRN 03/10/22 11/15/24 Rx aerosol inhaler (ProAir HFA) shortness of breath or wh eezing #8.5 grams ergocalciferol (vitamin D2) 1,250 50,000 unit PO QWEEK supplement 01/13/23 11/15/24 Rx mcg (50,000 unit) capsule #20 caps vibegron 75 mg tablet 75 mg PO DAILY 02/27/2310/25 History magnesium oxide 400 mg PO DAILY #90 caps 11/15/24 Rx codeine 10 mg-guaifenesin 100 mg/5 See Rx Instructions PO Q6H PRN 08/13/24 11/15/24 Rx mL oral liquid cough #120 mL esomeprazole magnesium 40 mg 40 mg PO QDAY gerd #90 ca ps 09/06/24 11/15/24 Rx capsule,delayed release ipratropium bromide 21 mcg (0.03 2 spray intranasal BI D-TID PRN 11/04/24 11/15/24 Rx %) nasal spray postnasal drainage #30 mL acetaminophen 500 mg tablet 1,000 mg PO Q8 PRN 5 11/15/24 History Have you fallen in the past year?: No Central Venous Access Central Venous Access: No Laboratory Tests 08/01/22 08/02/22 02/27/23 14:31 00:58 16:00 Plt Count 206 219 PT 12.8 12.8 13.4 APTT 29.0 08/15/23 08/22/24 11/08/24 08:19 09:20 15:37 Plt Count 234 200 245 PT 12.9 APTT 25.5 Exam Physical Exam Narrative See note of November 08, 2024 Coding Level of Care Code Off vis,est,level 3 Exam Problem Focused Diagnoses Abnormal bruising R23.3 Assessment and Plan Assessment and Plan (1) Abnormal bruising: Status: Chronic Plan 74-year-old female with increased bruising, chronic, years, extremities but not trunk. No past or family history of bleeding disorder. She is not on any bloodthinners or antiplatelet agents. Repeated checks of platelet counts PT PTT were all normal (see lab). This is most consistent with age-related purpura. Plan: 1- No intervention from hematology. 2-use Tylenol for aches and pains avoid use of NSAIDs if possible. Luz Elena Hatch MD Hand I Tube Bender, [facility] Divisions of Medical Oncology & Hematology Department of Internal Medicine [place] [address] . This note was generated using a voice recognition system software. Although itwas reviewed by the author prior to finalization, it may still contain incorrectwords, spelling, and punctuation that were not noted when reviewing prior to saving. If a clinically significant typo or inaccurately typed phrase is noted, please notify the author. Clinical Quality Measures Falls Risk Screening/Assistive Devices Have you fallen in the past year?: No 11/15/24 1221 <Electronically signed by Luz Elena mclaughlin MD> Date _ [facility]atch [facility] Signature: Date (if applicable) CC: Dr. Bean Bettencourt, DO ~ [facility] Work Phone: [phone] 656-215806-16-2025 [facility] [address] [place] [address] OFFICE VISIT Date of Service: 11/08/24 1514 MR#: [id number] Acct: [id number] Name: VALERY DEVINE Rep #: [id number] : 1950 From: Luz Elena joaquin MD Age/Sex: 74/F [place] [facility] [place] Status: Signed HPI Subjective Date of Service 11/08/24 Chief Complaint Bruises History of Present Illness 74-year-old female with progressively increasing easy bruising on the extremities over the course of the past few years. She is unaware of any other external bleeding and has had no excessive bleeding with prior surgical procedures. She is not on any blood thinning or antiplatelet agents. She enjoys swimming and standing in the sun. [facility] Medical History (Updated 11/08/24 @ 15:[address] Luz Elena Hatch MD) Abnormal bruising Impacted cerumen, left ear Dysuria HLD (hyperlipidemia) Bruises easily History of shingles Vitamin D deficiency Sciatica Lumbar radiculopathy GERD (gastroesophageal reflux disease) Lung cancer Anxiety Surgical History History of total left knee replacement History of bilateral cataract extraction History of lateral meniscus repair of left knee History of cystoscopy history of bunionectomy History of colonoscopy History of lobectomy of lung History of back surgery History of esophagogastroduodenoscopy (EGD) History of section Family History Aunt Colon cancer Diabetes Mother Thyroid disorder Heart disease Son Hypercholesteremia Grandmother Heart disease Father COPD (chronic obstructive pulmonary disease) Social History Smoking Status: Former smoker quit date: 05/26/08 Tobacco: How many years used: 40 alcohol intake: current alcohol intake frequency: holidays/special occasions only substance use type: does not use ROS Constitutional Constitutional: Reports systems reviewed and no addt'l complaints, except as documented Eyes Eyes: Reports systems reviewed and no addt'l complaints, except as documented ENT HEENT: Reports systems reviewed and no addt'l complaints, except as documented; Denies bleeding gums or epistaxis Cardiovascular Cardiovascular: Reports systems reviewed and no addt'l complaints, except as documented Respiratory/Chest Respiratory/Chest: Reports systems reviewed and no addt'l complaints, except as documented; Denies hemoptysis Gastrointestinal Gastrointestinal: Reports systems reviewed and no addt'l complaints, except as documented; Denies hematochezia or melena Genitourinary Genitourinary: Reports systems reviewed and no addt'l complaints, except as documented; Denies hematuria Musculoskeletal Musculoskeletal: Reports systems reviewed and no addt'l complaints, except as documented Integumentary Integumentary: Reports systems reviewed and no addt'l complaints, except as documented and unusual bruising; Denies bleeding lesions Neurologic Neurologic: Reports systems reviewed and no addt'l complaints, except as documented Psychiatric Psychiatric: Reports systems reviewed and no addt'l complaints, except as documented Endocrine Endocrinology: Reports systems reviewed and no addt'l complaints, except as documented Hematologic/Lymphatic Hematologic/Lymphatic: Reports easy bruising; Denies easy bleeding Allergic/Immunologic Allergic/Immunologic: Reports systems reviewed and no addt'l complaints, except as documented Intake Vital Signs 09/10/24 09:41 11/08/24 15:14 Height 5 ft 4 in 5 ft 4 in Weight: 73.482 kg BMI 27.8 BP 102/69 Blood Pressure Location Rt brachial Position Sitting Respiration 16 Pulse 84 Pulse Source Monitor Temp 97.9 F Temperature Source Temporal Artery Pulse Oximetry (%) 95 Oxygen Delivery Method room air Intake Quantitative Developer Required: No Accompanied by: Self Is patient in pain?: No (right knee) Allergies cephalexin Allergy (Intermediate, Verified 11/08/24 15:16) Rash nitrofurantoin Allergy (Intermediate, Verified 11/08/24 15:16) Rash Sulfa (Sulfonamide Antibiotics) Allergy (Intermediate, Verified 11/08/24 15:16) sores in mouth amoxicillin (From Amoxil) Adverse Reaction (Intermediate, Verified 11/08/24 15:16) yeast & bladder infections Medications ?Medication ?Instructions ?Recorded ?Confirmed ?Type atorvastatin 10 mg tablet 10 mg PO QHS cholesterol 11/08/24 History diclofenac sodium 1 % topical gel 4 g topical .QID PRN Pain Or Fever 07/27/21 11/08/24 Rx #100 grams albuterol sulfate 90 mcg/actuation 1 - 2 puff inhalati on Q6H PRN 03/10/22 11/08/24 Rx aerosol inhaler (ProAir HFA) shortness of breath or wh eezing #8.5 grams ergocalciferol (vitamin D2) 1,250 50,000 unit PO QWEEK supplement 01/13/23 11/08/24 Rx mcg (50,000 unit) capsule #20 caps vibegron 75 mg tablet 75 mg PO DAILY 02/27/2310/24 History magnesium oxide 400 mg PO DAILY #90 caps 11/08/24 Rx codeine 10 mg-guaifenesin 100 mg/5 See Rx Instructions PO Q6H PRN 08/13/24 11/05/24 Rx mL oral liquid cough #120 mL esomeprazole magnesium 40 mg 40 mg PO QDAY gerd #90 ca ps 09/06/24 11/08/24 Rx capsule,delayed release ipratropium bromide 21 mcg (0.03 2 spray intranasal BI D-TID PRN 11/04/24 11/08/24 Rx %) nasal spray postnasal drainage #30 mL acetaminophen 500 mg tablet 1,000 mg PO Q8 PRN 5 History Have you fallen in the past year?: Yes Central Venous Access Central Venous Access: No Laboratory Tests 08/02/22 02/27/23 08/15/23 00:58 16:00 08:19 Plt Count 206 234 PT 13.4 APTT 29.0 08/22/24 09:20 Plt Count 200 PT APTT Exam Physical Exam Const alert, oriented x3, no apparent distress and healthy appearing Skin Skin Narrative: She is sun tanned with thin skin General Skin Exam: ecchymosis; Negative for petechiae or purpura Coding Level of Care Code Off vis,new,level 3 Exam Problem Focused Diagnoses Abnormal bruising R23.3 Assessment and Plan Assessment and Plan (1) Abnormal bruising: Status: Chronic Plan 74-year-old female with increased bruising, chronic, years, extremities but not trunk. No past or family history of bleeding disorder. She is not on any bloodthinners or antiplatelet agents. Prior platelet counts PT PTT were all normal (see lab). On clinical grounds this is most consistent with age-related purpura. Plan: Update CBC, PT, PTT. Further workup if there are abnormalities. Follow-up in 1 week to discuss results. Luz Elena Hatch MD Hand I Tube Bender, [facility] Divisions of Medical Oncology & Hematology Department of Internal Medicine [place] [address] . This note was generated using a voice recognition system software. Although itwas reviewed by the author prior to finalization, it may still contain incorrectwords, spelling, and punctuation that were not noted when reviewing prior to saving. If a clinically significant typo or inaccurately typed phrase is noted, please notify the author. Clinical Quality Measures Falls Risk Screening/Assistive Devices Have you fallen in the past year?: Yes 11/08/24 1533 arnoldo VELAZQUEZ> Date _ Luz Elena Hatch MD Cosigner Signature: Date (if applicable) CC: Dr. Bean Bettencourt, DO ~ [facility]06-16-2025 Progress note Author Luz Elena Hatch [facility] Note Date/Time November 08, 2024 3:33 pm [facility] [place] [address] OFFICE VISIT Date of Service: 11/08/24 1514 MR#: [id number] Acct: [id number] Name: VALERY DEVINE Rep #: [id number] : 1950 From: Luz Elena joaquin MD Age/Sex: 74/F [place] [facility] [place] Status: Signed HPI Subjective Date of Service 11/08/24 Chief Complaint Bruises History of Present Illness 74-year-old female with progressively increasing easy bruising on the extremities over the course of the past few years. She is unaware of any other external bleeding and has had no excessive bleeding with prior surgical procedures. She is not on any blood thinning or antiplatelet agents. She enjoys swimming and standing in the sun. [facility] Medical History (Updated 11/08/24 @ 15:[address] Luz Elena Hatch MD) Abnormal bruising Impacted cerumen, left ear Dysuria HLD (hyperlipidemia) Bruises easily History of shingles Vitamin D deficiency Sciatica Lumbar radiculopathy GERD (gastroesophageal reflux disease) Lung cancer Anxiety Surgical History History of total left knee replacement History of bilateral cataract extraction History of lateral meniscus repair of left knee History of cystoscopy history of bunionectomy History of colonoscopy History of lobectomy of lung History of back surgery History of esophagogastroduodenoscopy (EGD) History of section Family History Aunt Colon cancer Diabetes Mother Thyroid disorder Heart disease Son Hypercholesteremia Grandmother Heart disease Father COPD (chronic obstructive pulmonary disease) Social History Smoking Status: Former smoker quit date: 05/26/08 Tobacco: How many years used: 40 alcohol intake: current alcohol intake frequency: holidays/special occasions only substance use type: does not use ROS Constitutional Constitutional: Reports systems reviewed and no addt'l complaints, except as documented Eyes Eyes: Reports systems reviewed and no addt'l complaints, except as documented ENT HEENT: Reports systems reviewed and no addt'l complaints, except as documented; Denies bleeding gums or epistaxis Cardiovascular Cardiovascular: Reports systems reviewed and no addt'l complaints, except as documented Respiratory/Chest Respiratory/Chest: Reports systems reviewed and no addt'l complaints, except as documented; Denies hemoptysis Gastrointestinal Gastrointestinal: Reports systems reviewed and no addt'l complaints, except as documented; Denies hematochezia or melena Genitourinary Genitourinary: Reports systems reviewed and no addt'l complaints, except as documented; Denies hematuria Musculoskeletal Musculoskeletal: Reports systems reviewed and no addt'l complaints, except as documented Integumentary Integumentary: Reports systems reviewed and no addt'l complaints, except as documented and unusual bruising; Denies bleeding lesions Neurologic Neurologic: Reports systems reviewed and no addt'l complaints, except as documented Psychiatric Psychiatric: Reports systems reviewed and no addt'l complaints, except as documented Endocrine Endocrinology: Reports systems reviewed and no addt'l complaints, except as documented Hematologic/Lymphatic Hematologic/Lymphatic: Reports easy bruising; Denies easy bleeding Allergic/Immunologic Allergic/Immunologic: Reports systems reviewed and no addt'l complaints, except as documented Intake Vital Signs 09/10/24 09:41 11/08/24 15:14 Height 5 ft 4 in 5 ft 4 in Weight: 73.482 kg BMI 27.8 BP 102/69 Blood Pressure Location Rt brachial Position Sitting Respiration 16 Pulse 84 Pulse Source Monitor Temp 97.9 F Temperature Source Temporal Artery Pulse Oximetry (%) 95 Oxygen Delivery Method room air Intake Quantitative Developer Required: No Accompanied by: Self Is patient in pain?: No (right knee) Allergies cephalexin Allergy (Intermediate, Verified 11/08/24 15:16) Rash nitrofurantoin Allergy (Intermediate, Verified 11/08/24 15:16) Rash Sulfa (Sulfonamide Antibiotics) Allergy (Intermediate, Verified 11/08/24 15:16) sores in mouth amoxicillin (From Amoxil) Adverse Reaction (Intermediate, Verified 11/08/24 15:16) yeast & bladder infections Medications ?Medication ?Instructions ?Recorded ?Confirmed ?Type atorvastatin 10 mg tablet 10 mg PO QHS cholesterol 11/08/24 History diclofenac sodium 1 % topical gel 4 g topical .QID PRN Pain Or Fever 07/27/21 11/08/24 Rx #100 grams albuterol sulfate 90 mcg/actuation 1 - 2 puff inhalati on Q6H PRN 03/10/22 11/08/24 Rx aerosol inhaler (ProAir HFA) shortness of breath or wh eezing #8.5 grams ergocalciferol (vitamin D2) 1,250 50,000 unit PO QWEEK supplement 01/13/23 11/08/24 Rx mcg (50,000 unit) capsule #20 caps vibegron 75 mg tablet 75 mg PO DAILY 02/27/2310/24 History magnesium oxide 400 mg PO DAILY #90 caps 11/08/24 Rx codeine 10 mg-guaifenesin 100 mg/5 See Rx Instructions PO Q6H PRN 08/13/24 11/05/24 Rx mL oral liquid cough #120 mL esomeprazole magnesium 40 mg 40 mg PO QDAY gerd #90 ca ps 09/06/24 11/08/24 Rx capsule,delayed release ipratropium bromide 21 mcg (0.03 2 spray intranasal BI D-TID PRN 11/04/24 11/08/24 Rx %) nasal spray postnasal drainage #30 mL acetaminophen 500 mg tablet 1,000 mg PO Q8 PRN 5 History Have you fallen in the past year?: Yes Central Venous Access Central Venous Access: No Laboratory Tests 08/02/22 02/27/23 08/15/23 00:58 16:00 08:19 Plt Count 206 234 PT 13.4 APTT 29.0 08/22/24 09:20 Plt Count 200 PT APTT Exam Physical Exam Const alert, oriented x3, no apparent distress and healthy appearing Skin Skin Narrative: She is sun tanned with thin skin General Skin Exam: ecchymosis; Negative for petechiae or purpura Coding Level of Care Code Off vis,new,level 3 Exam Problem Focused Diagnoses Abnormal bruising R23.3 Assessment and Plan Assessment and Plan (1) Abnormal bruising: Status: Chronic Plan 74-year-old female with increased bruising, chronic, years, extremities but not trunk. No past or family history of bleeding disorder. She is not on any bloodthinners or antiplatelet agents. Prior platelet counts PT PTT were all normal (see lab). On clinical grounds this is most consistent with age-related purpura. Plan: Update CBC, PT, PTT. Further workup if there are abnormalities. Follow-up in 1 week to discuss results. Luz Elena Hatch MD Hand I Tube Bender, [facility] Divisions of Medical Oncology & Hematology Department of Internal Medicine [place] [address] . This note was generated using a voice recognition system software. Although itwas reviewed by the author prior to finalization, it may still contain incorrectwords, spelling, and punctuation that were not noted when reviewing prior to saving. If a clinically significant typo or inaccurately typed phrase is noted, please notify the author. Clinical Quality Measures Falls Risk Screening/Assistive Devices Have you fallen in the past year?: Yes 11/08/24 1533 <Electronically signed by Luz Elena mclaughlin MD> Date _ Luz Elena Hatch MD Cosigner Signature: Date (if applicable) CC: Dr. Bean Bettencourt, DO ~ [facility] Work Phone: 1(813) 730-821105-28-2025 Evaluation note* Diagnosis Onset Date Resolution Status Admit Date Right knee DJD acute October 20, 2024 11:11am Right knee DJD acute October 27, 2024 10:48am Acute pharyngitis acute November 042024 8:19am Right knee DJD acute November 05, 2024 11:27am Abnormal bruising chronic November 082024 3:09pm Abnormal bruising chronic November 152024 11:52am Edema acute December 12 1:06pm Contusion of right lower leg acute December 14, 2024 1:21pm Hematoma acute December 14 1:21pm Osteoarthritis, knee acute December 14, 2024 1:21pm Skin tear of right lower leg without complication acute December 14, 2024 1:21pm Concern about urinary tract disease without diagnosis acute November 242024 2:52pm Skin tear of right lower leg without complication acute December 21, 2024 2:52pm [facility] Work Phone: 1([phone]) 259-260905-28-2025 Evaluation note* Diagnosis Onset Date Resolution Status Admit Date Right knee DJD acute October 20, 2024 11:11am Right knee DJD acute October 27, 2024 10:48am Acute pharyngitis acute November 042024 8:19am Right knee DJD acute November 05, 2024 11:27am Abnormal bruising chronic November 082024 3:09pm Abnormal bruising chronic November 152024 11:52am Edema acute December 12 1:06pm Contusion of right lower leg acute December 14, 2024 1:21pm Hematoma acute December 14 1:21pm Osteoarthritis, knee acute December 14, 2024 1:21pm Skin tear of right lower leg without complication acute December 14, 2024 1:21pm Concern about urinary tract disease without diagnosis acute November 242024 2:52pm Skin tear of right lower leg without complication acute December 21, 2024 2:52pm Cellulitis of right lower extremity acute January 19 8:02am Edema of right lower leg acute January 19, 2025 8:02am Non-pressure ulcer of right lower extremity with fat layer exposed acute January 19 8:02am Chronic ulcer of right leg chronic January 19, 2025 8:02am [facility] Work Phone: [phone] Evaluation note* Diagnosis Onset Date Resolution Status Admit Date Right knee DJD acute October 20, 2024 11:11am Right knee DJD acute October 27, 2024 10:48am Acute pharyngitis acute November 042024 8:19am Right knee DJD acute November 05, 2024 11:27am Abnormal bruising chronic November 082024 3:09pm Abnormal bruising chronic November 152024 11:52am Edema acute December 12 1:06pm Contusion of right lower leg acute December 14, 2024 1:21pm Hematoma acute December 14 1:21pm Osteoarthritis, knee acute December 14, 2024 1:21pm Skin tear of right lower leg without complication acute December 14, 2024 1:21pm Concern about urinary tract disease without diagnosis acute November 242024 2:52pm Skin tear of right lower leg without complication acute December 21, 2024 2:52pm Cellulitis of right lower extremity acute January 19 8:02am Edema of right lower leg acute January 19, 2025 8:02am Non-pressure ulcer of right lower extremity with fat layer exposed acute January 19 8:02am Chronic ulcer of right leg chronic January 19, 2025 8:02am Chest wall contusion acute 2024 3:53pm [facility] Work Phone: [phone] Evaluation note* Diagnosis Onset Date Resolution Status Admit Date Staph skin infection acute Apri l 2024 7:24am Facial paresthesia inactive August 27, 2024 7:24am Right knee DJD acute August 9:23am Right knee DJD acute October 20, 2024 11:11am Right knee DJD acute October 27, 2024 10:48am Acute pharyngitis acute November 042024 8:19am Right knee DJD acute November 05, 2024 11:27am Abnormal bruising chronic November 082024 3:09pm Abnormal bruising chronic November 152024 11:52am Edema acute December 12 1:06pm [facility] Work Phone: [phone] Evaluation note* Diagnosis Onset Date Resolution Status Admit Date Staph skin infection acute Apri l 2024 7:24am Facial paresthesia inactive August 27, 2024 7:24am Right knee DJD acute August 9:23am Right knee DJD acute October 20, 2024 11:11am Right knee DJD acute October 27, 2024 10:48am Acute pharyngitis acute November 042024 8:19am Right knee DJD acute November 05, 2024 11:27am Abnormal bruising chronic November 082024 3:09pm Abnormal bruising chronic November 152024 11:52am Edema acute December 12 1:06pm Contusion of right lower leg acute December 14, 2024 1:21pm Hematoma acute December 14 1:21pm Osteoarthritis, knee acute December 14, 2024 1:21pm Skin tear of right lower leg without complication acute December 14, 2024 1:21pm [facility] Work Phone: 1([phone]) 243-969703-30-2025 Radiology Diagnostic study note [facility] Imaging Services [address] [place] [address] CTA Head AND Neck W/ Contrast MR#: [id number] Acct: [id number] Name: VALERY DEVINE Rep #: [id number] : 1950 F 74 From: Valeria Hernández MD PCP: Dr. Bean Bettencourt, DO Status: RE G ER Study:CTA Head AND Neck W/ Contrast Date of E xam: 08/22/24 Exam# [id number] Ordering Dr: Martha Langley DO PROCEDURE: CT HEAD, CTA HEAD AND NECK W/ CONTRAST 08/22/2024 REASON FOR EXAM: 74-year-old female, left facial, nose and mouth numbness. Fall in May and hit head, still feelsfoggy. Similar episode approximately 1 year ago without cause found. TECHNIQUE: CT imaging of the head was performed with coronal and sagittal recon imaging. CTA imaging of the head and neck from the aortic arch to the skull vertex with intravenous contrast. Coronal and Sagittal reconstruction series were provided. 3D, 3D post processing, 3D reconstructions, Maximum intensity projection (MIPs) Volume rendering and Shaded surface rendering was provided. CONTRAST: Isovue-300 VOLUME: 100mL One or more dose reduction techniques were used (e.g., Automated exposure control, adjustment of the mA and/or kV according to patient size, use of iterative reconstruction technique). RADIATION DOSE SUMMARY: CTDlvol: 100 mGy DLP: 1300 mGycm COMPARISON: Brain MRI 08/02/2022. FINDINGS: Noncontrast CT head: The cerebral and cerebellar volume is normal for patient age. The ventricles and subarachnoid spaces are normal for patient age. No ventriculomegaly. Mild scattered supratentorial white matter hypodensities. The wood-white matter interfaces are otherwise maintained. No acute intracranial hemorrhage or herniation. Moderate right andmild left mucosal thickening of the maxillary sinuses. The visualized paranasal sinuses and mastoids are otherwise well- aerated. Unremarkable orbits. No acute calvarial fracture or scalp hematoma. CTA: Three-vessel aortic arch without narrowing or calcific plaque. The bilateral vertebral arteries arewidely patent. No calcific plaque of the bilateral common, internal or external carotid arteries. 0% stenosis by NASCET criteria. No calcific plaque of the carotid siphons. The bilateral anterior, middle and posterior cerebral arteries are widely patent. No aneurysm or arteriovenous malformation. Major venous structures: Unremarkable. Other findings: Cervical spondylosis with degenerative grade 1 retrolisthesis ofC5 onto C6. Biapical scarring. CT/CTA Head AND Neck W/ Contrast IMPRESSION: 1. No acute intracranial hemorrhage or herniation. 2. No large vessel occlusion, AVM or aneurysm. 3. Findings of mild chronic microvascular ischemic changes. Reading Location: [id number] CC: Dr. Fred Langley, DO; Dr. Bean Bettencourt, DO ~ [employer]iting: Signed [facility]03-20-2025 Evaluation note* Diagnosis Onset Date Resolution Status Admit Date Staph skin infection acute Nickolas h 2024 1:38pm Superficial abrasion acute Nickolas h 2024 1:38pm Staph skin infection acute Apri l 2024 7:24am Facial paresthesia inactive August 27, 2024 7:24am Right knee DJD acute August 9:23am Right knee DJD acute October 20, 2024 11:11am Right knee DJD acute October 27, 2024 10:48am Acute pharyngitis acute November 042024 8:19am Right knee DJD acute November 05, 2024 11:27am Abnormal bruising chronic November 082024 3:09pm Abnormal bruising chronic November 152024 11:52am [facility] Work Phone: 1([phone]) 782-881003-14-2025 Evaluation note* Diagnosis Onset Date Resolution Status Admit Date Cough acute August 06 2:28pm Superficial abrasion acute Nickolas h 2024 2:28pm Staph skin infection acute Nickolas h 2024 1:38pm Superficial abrasion acute Nickolas h 2024 1:38pm Staph skin infection acute Apri l 2024 7:24am Facial paresthesia inactive August 27, 2024 7:24am Right knee DJD acute August 9:23am Right knee DJD acute October 20, 2024 11:11am [facility] Work Phone: 1(210) 116-976203-14-2025 Evaluation note* Diagnosis Onset Date Resolution Status Admit Date Cough acute August 06 2:28pm Superficial abrasion acute Nickolas h 2024 2:28pm Staph skin infection acute Nickolas h 2024 1:38pm Superficial abrasion acute Nickolas h 2024 1:38pm Staph skin infection acute Apri l 2024 7:24am Facial paresthesia inactive August 27, 2024 7:24am Right knee DJD acute August 9:23am Right knee DJD acute October 20, 2024 11:11am Right knee DJD acute October 27, 2024 10:48am [facility] Work Phone: [phone]) 400-172303-14-2025 Evaluation note* Diagnosis Onset Date Resolution Status Admit Date Cough acute August 06 2:28pm Superficial abrasion acute Nickolas h 2024 2:28pm Staph skin infection acute Nickolas h 2024 1:38pm Superficial abrasion acute Nickolas h 2024 1:38pm Staph skin infection acute Apri l 2024 7:24am Facial paresthesia inactive August 27, 2024 7:24am Right knee DJD acute August 9:23am Right knee DJD acute October 20, 2024 11:11am Right knee DJD acute October 27, 2024 10:48am Acute pharyngitis acute November 042024 8:19am Right knee DJD acute November 05, 2024 11:27am [facility] Work Phone: [phone]) 905-979903-14-2025 Evaluation note* Diagnosis Onset Date Resolution Status Admit Date Cough acute August 06 2:28pm Superficial abrasion acute Nickolas h 2024 2:28pm Staph skin infection acute Nickolas h 2024 1:38pm Superficial abrasion acute Nickolas h 2024 1:38pm Staph skin infection acute Apri l 2024 7:24am Facial paresthesia inactive Arlene 4th, 2025 7:24am Right knee DJD acute August 9:23am Right knee DJD acute October 20, 2024 11:11am Right knee DJD acute October 27, 2024 10:48am Acute pharyngitis acute November 042024 8:19am Right knee DJD acute November 05, 2024 11:27am Abnormal bruising chronic November 082024 3:09pm [facility] Work Phone: [phone] 111-351803-14-2025 Evaluation note* Diagnosis Onset Date Resolution Status Admit Date Cough acute August 06 2:28pm Superficial abrasion acute Nickolas h 2024 2:28pm Staph skin infection acute Nickolas h 2024 1:38pm Superficial abrasion acute Nickolas h 2024 1:38pm Staph skin infection acute Apri l 2024 7:24am Facial paresthesia inactive August 27, 2024 7:24am Right knee DJD acute August 9:23am Right knee DJD acute October 20, 2024 11:11am Right knee DJD acute October 27, 2024 10:48am Acute pharyngitis acute November 042024 8:19am Right knee DJD acute November 05, 2024 11:27am Abnormal bruising chronic November 082024 3:09pm Abnormal bruising chronic November 152024 11:52am [facility] Work Phone: 1([phone]) 616-231801-22-2025 Evaluation note* Diagnosis Onset Date Resolution Status Admit Date Contusion of forehead acute Khari 2024 12:53pm Skin pigmentation disorder acute June 16, 2024 12:53pm Cough acute August 06 2:28pm Superficial abrasion acute Nickolas h 2024 2:28pm Staph skin infection acute Nickolas h 2024 1:38pm Superficial abrasion acute Nickolas h 2024 1:38pm [facility] Work Phone: 1([phone]) 693-834603-10-2023 Hospital Discharge instructions Additional Instructions Follow with PCP for outpatient CT chest with IV contrast for 18 mm soft tissue nodule for known CTA neck. 2D echo also showed a small PFO and aneurysmal atrial septum. 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 Advised to follow with rip saw operator and she agreed. [facility]: [facility] 1(125) 508-822403-10-[address] Tyler [facility] August 02, 2022 3:00pm Note Date/Time August 02, 2022 1:4 4pm [facility] Medical Records Department [address] [place] [address] Instructions for Home/Discharge Instructions 08/02/22 1130 MR#: [id number] Acct: [id number] Name: VALERY DEVINE Rep #:[id number] : 1950 72 From: Salvador Thomas PCP: Dr. Bean Bettencourt, DO Status:AD M SEAN Discharge Instructions Diet Discharge Diet: No restrictions Activity Discharge Activity: Return to Normal Activity Weight Bearing Status: Weight bearing as tolerated Dressing / Incision Call your doctor if you observe: Fever of 101 or Higher, Coldness, Increased Pain, Numbness or Tingling, Change in Color, Inability to urinate, Inability to have a bowel movement, Using more than 1 pad per hour, Shortness of breath, Dizziness, Fainting spells, Swelling in the ankles, Chest pain, Prolonged hiccupping, Increased palpitations (irregular heartbeat) and Calf discomfort Follow Up Care When: IN 2 WEEKS Test Results: Test results from this visit will be discussed in further detail at your follow- up appointment, if applicable. Discharge Plan Admission Admit Date/Time: 08/02/22 02:00 Primary Reason for Your Visit: Acute stroke ruled out. Attending Provider: Salvador Tyler Primary Care Provider: Bean Bettencourt Consulting Providers: Saray Meadows Instructions Additional Instructions / Restrictions: Follow with PCP for outpatient CT chest with IV contrast for 18 mm soft tissue nodule for known CTA neck. 2D echo also showed a small PFO and aneurysmal atrial septum. 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 Advised to follow with rip saw operator and she agreed. Discharge Orders/Prescriptions Prescriptions: Continued atorvastatin 10 mg tablet 10 mg PO QHS albuterol sulfate [ProAir HFA] 90 mcg/actuation HFA aerosol inhaler 1 - 2 puff inhalation Q6H PRN (Reason: shortness of breath or wheezing) Qty: 8.5 3RF acetaminophen 500 MG tablet 1,000 mg PO Q8 Qty: 90 0RF diclofenac sodium 1 % gel 4 g TOPICAL .QID PRN (Reason: Pain Or Fever) Qty: 100 2RF ergocalciferol (vitamin D2) 1,250 mcg (50,000 unit) capsule 50,000 unit PO QWEEK Qty: 20 2RF esomeprazole magnesium 40 mg capsule,delayed release(DR/EC) 40 mg PO QDAY Qty: 90 1RF Changed ibuprofen 800 mg tablet 600 mg PO TID PRN (Reason: Pain Or Fever) Qty: 30 1RF Referrals / Follow Up: Bean Bettencourt DO [Primary Care Provider] - Within 1 Week (Patient will need CT chest with IV contrast 18 mm nodule partially visualized in the left superiormediastinum and possible lymphadenopathy) Disposition Disposition (needs filled in before D/C Order can be placed): Home, Self Care 08/02/22 1500<Electronically signed by Salvador Tyler MD>Salvador Tyler MD CC: Dr. Saray Meadows MD; Dr. Bean Bettencourt DO ~ Signed [facility] Work Phone: 1([phone]) 660-191403-10-2023 History and physical note Author Dr. Meadows [facility] August 02, 2022 2:39am Note Date/Time August 02, 2022 2:0 2am [facility] Medical Records Department [address] [place] [address] History & Physical Exam 08/02/22 0157 MR#: [id number] Acct: [id number] Name: VALERY DEVINE Rep #:[id number] : 1950 72 From: Saray Meadows MD PCP: Dr. Bean Bettencourt DO Status:JOHN ESTRADA Location: [place] [id number]- [id number] HPI - General General Date of Admission: 08/02/22 Date of Service: 08/02/22 Chief Complaint: L facial and L hand paresthesias, possibly altered speech. HPI Narrative The patient is a 72 y/o F w/ PMHx: Chronic migraines R sided with visual R eye changes, Obesity, Anxiety and Depression, HLD, GERD, Chronic lumbar back pain with radiculopathy/sciatica, Hx Lung Cancer s/p lobectomy considered in remission, Former tobacco use who presents to the [facility] ED on 08/02/22 with historyof onset strokelike symptoms reporting that she had been sitting watching television and fell asleep awakening at approximately 10:30 PM reporting that her face felt odd on the left side and was tingling in her left hand was also tingling specifically more so in the left fifth digit at which point she felt itwas likely secondary to sleeping wrong and it would go away however despite waiting it continued prompting her to call her son at about 1115 prompting him to go over the house and coin machine mechanic with concerns that she had garbled speech which resolved but given ongoing paresthesias prompted ED evaluation for possible stroke. Did report that when this occurred she became extremely stressed and anxious and did feel palpitations but this subsided when she calmeddown and she had no related chest discomfort or dyspnea with this. Of note patient does states she has had similar episodes in the past but never got evaluated during those episodes because it would eventually go away. She deniesany prior history of stroke. While in the emergency room upon ED evaluation shedoes have resolution of the prior reported facial and left hand paresthesias. Given this improvement initial NIH stroke scale 1 for facial palsy as patient isunable to blow her left cheek up but she is able to smile and demonstrates symmetrical teeth on each side with no flattening of any nasolabial fold demonstrated. Patient denies any recent migraines and notes during this entire event she had no headaches or visual changes. Of note patient had recent internal medicine visit 08/01/2022 secondary concerns of easy bruising/bleeding reporting that she had been taking meloxicam and ibuprofen with UTI diagnosis the month prior with urine noted to have microcytic anemia with prior cystoscopywhich was unremarkable of note. Urinalysis at that visit with specific gravity elevated 1.025, protein 15, occult blood negative, nitrite negative, leukocyte Estrace negative with no obvious evidence of UTI. Work-up in the ED included T98.3, heart rate 75, BP 144/83, respiratory rate 16, 98% on room air, CBC with WC 6.1, hemoglobin 12.4, platelet 206 without marked shift, coags unremarkable, BMP with chloride 110, BUN/creatinine 20/0.66, glucose 121, troponin 74, CT headwith no acute intracranial hemorrhage or territorial infarct, CTA head and neck with no flow-limiting stenosis, aneurysm or dissection in the head or neck however there is a nonspecific 18 mm soft tissue nodule in the left superior mediastinum possibly representing lymphadenopathy however incompletely characterized, left thyroid nodularity also measuring up to 14 mm with recommendation of nonemergent thyroid ultrasound, CXR with noted nonspecific fullness right hilar/suprahilar region as well as right superior mediastinum with otherwise no acute cardiopulmonary findings, EKG with SR without acute evidence of ischemia. In the ED patient administered FS ASA. [facility] Medical History (Updated 08/02/22 @ 02:[address] Saray Meadows MD) Anxiety Bruises easily GERD (gastroesophageal reflux disease) History of shingles HLD (hyperlipidemia) Lumbar radiculopathy Lung cancer Sciatica Vitamin D deficiency Home Medications acetaminophen 500 mg tablet 1,000 mg PO Q8 #90 tabs 08/10/19 [Rx Last Taken Unknown] atorvastatin 10 mg tablet 10 mg PO QHS 06/13/20 [History Last Taken Unknown] diclofenac sodium 1 % topical gel 4 g topical .QID PRN Pain Or Fever #100 grams 07/27/21 [Rx Last Taken Unknown] ibuprofen 800 mg tablet 800 mg PO TID PRN Pain Or Fever #30 tabs 07/27/21 [Rx Last Taken Unknown] ergocalciferol (vitamin D2) 1,250 mcg (50,000 unit) capsule 50,000 unit PO QWEEKsupplement #20 caps 01/23/22 [Rx Last Taken Unknown] albuterol sulfate 90 mcg/actuation aerosol inhaler (ProAir HFA) 1 - 2 puff inhalation Q6H PRN shortness of breath or wheezing #8.5 grams 03/10/22 [Rx Last Taken Unknown] esomeprazole magnesium 40 mg capsule,delayed release 40 mg PO QDAY gerd #90 caps07/10/22 [Rx Last Taken Unknown] tramadol 50 mg tablet 50 mg PO PRN PRN pain 08/02/22 [History Last Taken Unknown] Allergy/AdvReac Type Severity Reaction Status Date / Time Sulfa (Sulfonamide Allergy Intermediate sores in Verified 08/02/22 00:15 Antibiotics) mouth amoxicillin [From Amoxil] AdvReac Intermediate yeast & Verified 08/02/22 00:15 bladder infections Family History (Updated 08/02/22 @ 02:[address] Saray Meadows MD) Aunt Colon cancer Diabetes Mother Thyroid disorder Heart disease Son Hypercholesteremia Grandmother Heart disease Father COPD (chronic obstructive pulmonary disease) Surgical History History of back surgery History of bilateral cataract extraction history of bunionectomy History of section History of colonoscopy History of cystoscopy History of esophagogastroduodenoscopy (EGD) History of lateral meniscus repair of left knee History of lobectomy of lung History of total left knee replacement Social History Smoking Status: Former smoker quit date: 05/26/08 Tobacco: How many years used: 40 alcohol intake: current alcohol intake frequency: holidays/special occasions only substance use type: does not use ROS ROS Narrative Admission Review of Systems: CONSTITUTIONAL: No weight loss, fever, chills, +weakness or fatigue. HEENT: + Left facial paresthesias. Eyes: No visual loss, blurred vision, double vision or yellow sclerae. Ears, Nose, Throat: No hearing loss, sneezing, congestion, runny nose or sore throat. SKIN: No rash or itching, lesions, wounds. CARDIOVASCULAR: + Occasional palpitations, No chest pain, chest pressure or chest discomfort, edema, orthopnea, syncopal events. RESPIRATORY: No shortness of breath, cough or sputum, wheezing, hemoptysis. GASTROINTESTINAL: No anorexia, nausea, vomiting or diarrhea, abdominal pain, melena, BRBPR. GENITOURINARY: No dysuria, frequency, urgency or retention. NEUROLOGICAL: + Left facial and left hand paresthesias. No headache, dizziness,syncope, paralysis, ataxia, focal weakness, change in bowel or bladder control, seizure. MUSCULOSKELETAL: + muscle, back pain, joint pain or stiffness. HEMATOLOGIC: No anemia, bleeding or bruising. LYMPHATICS: No enlarged nodes. No history of splenectomy. PSYCHIATRIC: + history of depression or anxiety. ENDOCRINOLOGIC: No reports of sweating, cold or heat intolerance. No polyuria orpolydipsia. ALLERGIES: No history of asthma, hives, eczema or rhinitis. Vital Signs Vital Signs Vital Signs: 08/02/22 00:12 08/02/22 01:30 08/02/22 01:30 Temperature 98.3 F Temperature Source Temporal Pulse Rate 75 66 Respiratory Rate 16 12 Blood Pressure 144/83 H 148/85 H Blood Pressure Mean 103 106 Pulse Ox 98 100 Oxygen Delivery Method Room Air Room Air Room Air 08/02/22 01:30 Temperature Temperature Source Pulse Rate 66 Respiratory Rate 12 Blood Pressure 148/85 H Blood Pressure Mean 106 Pulse Ox 100 Oxygen Delivery Method Room Air Weight Weight: 170 lb 9 oz Body Mass Index (BMI) 29.2 Physical Exam Narrative Physical Examination: General: Awake, alert, oriented x 3 and cooperative, seated upright in the ED bed, no acute distress, anxious. Skin: Normal color, normal turgor, no icterus, no cyanosis. HEENT: AT/NC, EOMI, PERRLA, mildly dry MM, no carotid bruits or JVD noted, ongoing left-sided subjective facial paresthesias. Lungs: Diminished, > bases, moderate effort, no distress, no rales, ronchi or wheezing. Heart: Regular rate and rhythm; no gallop, rub audible. Abdomen: Soft, overweight, NTTP, ND, normal BS, no HSM. Extremities: No cyanosis, clubbing, or edema, resolved prior left upper extremity primarily fifth digit paresthesias. Neurological: Patient awake, alert, oriented as noted, cognitive function intact; pupils equally reactive to light and accommodation, cranial nerves grossly normal except difficulty filling left cheek, moving all 4 extremities, no focal deficits, strength preserved, finger-nose and [id number] appropriate, equivocal Babinski, resolved prior left facial as well left fifth digit paresthesia. Psychiatric: Affect appears fatigued and anxious especially with discussion of planned CT chest and CXR findings, no acute evidence of depressive feelings. Results Lab / Micro Data Result Diagrams: 08/02/22 00:58 08/02/22 00:58 Labs: Laboratory Results - last 24 hr 08/02/22 00:57: POC Glucose 115 H 08/02/22 00:58: WBC 6.1, RBC 4.13 L, Hgb 12.4, Hct 38.4, MCV 93.0, MCH 30.0, MCHC 32.3, RDW Std Deviation 48.1 H, RDW Coeff of Richard 14.1, Plt Count 206, MPV 11.1, Immature Gran % (Auto) 0.200, Neut % (Auto) 54.0, Lymph % (Auto) 35.8, Rock % (Auto) 8.0, Eos % (Auto) 1.3, Baso % (Auto) 0.7, Absolute Neuts (auto) 3.3, Absolute Lymphs (auto) 2.18, Nucleated RBC % 0 08/02/22 00:58: PT 12.8, INR 1.0, APTT 29.0 08/02/22 00:58: Sodium 143, Potassium 3.7, Chloride 110 H, Carbon Dioxide 28.0, Anion Gap 5, BUN 20 H, Creatinine 0.66, Estim Creat Clear Calc 44.56, Est GFR (MDRD) Af Amer 113, Est GFR (MDRD) Non-Af 93, BUN/Creatinine Ratio 30.2 H, Glucose 121 H, Calcium 8.7, Troponin I High Sens 74 H Radiology Impression Brain CT 08/02/22 00:50 IMPRESSION: No intracranial hemorrhage or acute territorial infarction. Findings discussed with Dr. Jewel Puente via phone at 10:26 PM PST on 08/01/2022. N.B. : The above Results were Read Back by Kahlil Stinson MD to Jewel Puente DO, and understanding confirmed on 08/02/2022 01:27:30 (ET). Electronically Signed: Kahlil Stinson MD at 1:29 EST , ADDENDUM: 08/02/22 0136 IMPRESSION: No intracranial hemorrhage or acute territorial infarction. Findings discussed with Dr. Jewel Puente via phone at 10:26 PM PST on 08/01/2022. N.B. : The above Results were Read Back by Kahlil Stinson MD to Jewel Puente DO, and understanding confirmed on 08/02/2022 01:27:30 (ET). Electronically Signed: Kahlil Stinson MD at 1:29 EST , Chest X-Ray 08/02/22 00:50 IMPRESSION: 1. No acute cardiopulmonary disease. 2. Nonspecific fullness of the right hilar/suprahilar region region and right superior mediastinum. Follow-up advised. Electronically Signed: Ruddy Cisse MD at 1:37 EST , Head/Neck CTA 08/02/22 00:53 IMPRESSION: 1. No flow-limiting stenosis, aneurysm or dissection in the head and neck. 2. Nonspecific 18 mm soft tissue nodule in the left superior mediastinum, may represent lymphadenopathy however incompletely characterized. CT chest recommended to further characterize. 3. Left thyroid nodularity measuring up to 14 mm, should be further characterized with nonemergent thyroid ultrasound. Findings reported to Dr. Jewel Puente via phone at 10:39 PM PST on 08/01/2022. N.B. : The above Results were Read Back by Kahlil Stinson MD to Jewel Puente DO, and understanding confirmed on 08/02/2022 01:40:13 (ET). Electronically Signed: Kahlil Stinson MD at 1:44 EST , ADDENDUM: 08/02/22 0151 IMPRESSION: 1. No flow-limiting stenosis, aneurysm or dissection in the head and neck. 2. Nonspecific 18 mm soft tissue nodule in the left superior mediastinum, may represent lymphadenopathy however incompletely characterized. CT chest recommended to further characterize. 3. Left thyroid nodularity measuring up to 14 mm, should be further characterized with nonemergent thyroid ultrasound. Findings reported to Dr. Jewel Puente via phone at 10:39 PM PST on 08/01/2022. N.B. : The above Results were Read Back by Kahlil Stinson MD to Jewel Puente DO, and understanding confirmed on 08/02/2022 01:40:13 (ET). Electronically Signed: Kahlil Stinson MD at 1:44 EST , Assessment & Plan Assessment/Plan (1) TIA (transient ischemic attack): PLAN: Plan The patient is a 72 y/o F w/ PMHx: Chronic migraines R sided with visual R eye changes, Obesity, Anxiety and Depression, HLD, GERD, Chronic lumbar back pain with radiculopathy/sciatica, Hx Lung Cancer s/p lobectomy considered in remission, Former tobacco use who presents to the [facility] ED on 08/02/22 with historyof onset strokelike symptoms reporting that she had been sitting watching television and fell asleep awakening at approximately 10:30 PM reporting that her face felt odd on the left side and was tingling in her left hand was also tingling specifically more so in the left fifth digit at which point she felt itwas likely secondary to sleeping wrong and it would go away however despite waiting it continued prompting her to call her son at about 1115 prompting him to go over the house and coin machine mechanic with concerns that she had garbled speech which resolved but given ongoing paresthesias prompted ED evaluation for possible stroke. #1. Left facial and left hand paresthesias, possibly altered speech concerning for CVA/TIA versus complex migraines with history of migraines (less suspected given no headache with event) complicated by incidentally noted #2, #3: Will admit to PCU, will obtain MRI Brain, ECHO, PT/OT/Speech/Nutrition evaluation perprotocol. Will allow permissive HTN, will initiate on aspirin therapy, continue home statin w/ AM FLP, fall precautions, TSH/magnesium/hemoglobin A1c requested.Will have low dose PRN ativan for anxiety with MRI per patient preference. #2. Indeterminate cardiac enzyme: EKG with SR without acute evidence of ischemia, CXR with noted nonspecific fullness right hilar/suprahilar region as well as right superior mediastinum with otherwise no acute cardiopulmonary findings, initial trop 74. Will place on a monitored bed to assure no acute myocardial infarction with serial cardiac enzymes and EKGs. Magnesium level requested. FLP in AM. ASA. Patient with no complaints of chest discomfort. Echocardiogram requested as noted #1. Pending further evaluation and work-up #1May need to consider further cardiac evaluation. #3. History of lung cancer with incidentally noted Nonspecific Fullness R Hilar/Suprahilar region and R superior mediastium: Unclear specific type of cancer, status post lobectomy, had been considered in remission, CXR with noted nonspecific fullness right hilar/suprahilar region as well as right superior mediastinum with otherwise no acute cardiopulmonary findings as well as CTA headand neck with comment about a nonspecific 18 mm soft tissue nodule in the left superior mediastinum, CT Chest will be obtained once able to utilize contrast again given recent CTA head and neck. #4. Incidental left thyroid nodularity: CTA head and neck with noted left thyroid nodularity measuring up to 14 mm, will obtain TSH and free T4, will neednonemergent thyroid ultrasound outpatient unless notably abnormal function studies. #5. Hyperglycemia, mild: Glucose 121, no diabetic history, hemoglobin A1c requested given acute presentation as noted #1. #6. Mildly elevated BP above goal with no prior history hypertension: BP upon ED presentation only minimally elevated, no prior hypertensive history per report, will continue to closely monitor, as needed agents as needed per stroke protocol #7. Chronic lumbar back pain with radiculopathy/sciatica: Encourage frequent positional changes, fall precautions as noted. #8. Anxiety and depression: Not on any chronic regimen per review of current list, encourage continued outpatient follow-up and counseling as needed. #9. Hyperlipidemia: Continue home statin regimen. AM FLP. #10. GERD: We will continue patient home PPI. #11. Former tobacco use: Encourage continued tobacco cessation. #12. Obesity: Weight loss and lifestyle changes encouraged. #13. DVT prophylaxis: Lovenox. #14. CODE status: Patient REG is her two sons and living will is currently inplace. Discussed CODE status at length including difference between FULL code, DNR-CCA and DNR-CC status. Following discussions about the differences in these status, requested Full Code status. Advanced Care Planning Face to Face Time:16 minutes. Admission Evaluation Time spent evaluating chart, patient history, patient evaluation, care planning and discussion with specialists: 75 minutes. Charges/Coding Visit Charges Inpatient E&M: 90854 Init Hosp L3 Procedures Hospitalists Procedures: 33708 Advncd Care Plan 30 Min 08/02/22 0239 <Electronically signed by Saray Meadows MD> Cosigner Signature (if applicable): CC: Dr. Saray Meadows MD; Dr. Bean Bettencourt DO~ Signed [facility] Work Phone: [phone]) 160-519703-10-[address] Puente [facility] August 02, 2022 2:10am Note Date/Time August 02, 2022 1:0 1am [facility] Medical Records Department [address] [place] [address] Emergency Department Summary 08/02/22 MR#: [id number] Acct: [id number] Name: VALERY DEVINE Rep #:[id number] : 1950 72 From: Jewel Puente DO PCP: Dr. Bean Bettencourt DO Status:RE G ER Location: ED HPI History of Present Illness Chief Complaint: Numb/Ting Narrative Narrative: 72-year-old female presenting for evaluation of strokelike symptoms. She statesshe was sitting in her son room watching television and fell asleep. She stateshe woke up about 10:30 PM and felt like her face felt funny on the left and was tingly. She also notes that her left hand was tingly and specifically points toher left pinky. She states that she initially thought it would go away so she did not call anybody right away. She called her son at about 1115 and he drove to the house. He does state that her voice was garbled a little bit and mom believe he when she called. This is apparently resolved. In the emergency roomshe still having tingling in the left face but no facial droop. No slurred speech. She is not having any pain. No history of stroke, but does states she had a similar episode of this in the past but never got evaluated because it went away. [facility] Medical History Acute bronchitis, unspecified Anxiety Bruises easily Chronic cough Cough GERD (gastroesophageal reflux disease) History of shingles Lab test negative for COVID-19 virus Lumbar radiculopathy Lung cancer Sciatica URI (upper respiratory infection) Urinary tract infection with hematuria Vitamin D deficiency Home Medications acetaminophen 500 mg tablet 1,000 mg PO Q8 #90 tabs 08/10/19 [Rx Last Taken Unknown] atorvastatin 10 mg tablet 10 mg PO QHS 06/13/20 [History Last Taken Unknown] diclofenac sodium 1 % topical gel 4 g topical .QID PRN Pain Or Fever #100 grams 07/27/21 [Rx Last Taken Unknown] ibuprofen 800 mg tablet 800 mg PO TID PRN Pain Or Fever #30 tabs 07/27/21 [Rx Last Taken Unknown] ergocalciferol (vitamin D2) 1,250 mcg (50,000 unit) capsule 50,000 unit PO QWEEKsupplement #20 caps 01/23/22 [Rx Last Taken Unknown] albuterol sulfate 90 mcg/actuation aerosol inhaler (ProAir HFA) 1 - 2 puff inhalation Q6H PRN shortness of breath or wheezing #8.5 grams 03/10/22 [Rx Last Taken Unknown] esomeprazole magnesium 40 mg capsule,delayed release 40 mg PO QDAY gerd #90 caps07/10/22 [Rx Last Taken Unknown] tramadol 50 mg tablet 50 mg PO PRN PRN pain 08/02/22 [History Last Taken Unknown] Allergy/AdvReac Type Severity Reaction Status Date / Time Sulfa (Sulfonamide Allergy Intermediate sores in Verified 08/02/22 00:15 Antibiotics) mouth amoxicillin [From Amoxil] AdvReac Intermediate yeast & Verified 08/02/22 00:15 bladder infections Family History Aunt Colon cancer Diabetes Mother Thyroid disorder Heart disease Son Hypercholesteremia Grandmother Heart disease Surgical History History of back surgery History of bilateral cataract extraction history of bunionectomy History of section History of colonoscopy History of cystoscopy History of esophagogastroduodenoscopy (EGD) History of lateral meniscus repair of left knee History of lobectomy of lung History of total left knee replacement Social History Smoking Status: Former smoker quit date: 05/26/08 Tobacco: How many years used: 40 alcohol intake: current alcohol intake frequency: holidays/special occasions only substance use type: does not use ROS ROS ED Constitutional Constitutional ED: Denies chills or fever(s) Eyes Eyes: Denies blurry vision or change in vision ENT ENT ED: Denies rhinorrhea or sore throat Cardiovascular Cardiovascular: Denies chest pain Respiratory/Chest Respiratory/Chest: Denies cough or dyspnea Gastrointestinal Gastrointestinal: Denies abdominal pain, constipation, diarrhea, melena or nausea Genitourinary Genitourinary ED: Denies dysuria or hematuria Neurologic Neurologic: Reports paresthesias LUE and other Details: Tingling to left cheek. Psychiatric Psychiatric: Denies anxiety or depression Endocrine Endocrinology: Denies polydipsia or polyphagia EXAM Physical Exam Const Vital Signs: 08/02/22 00:12 08/02/22 01:30 08/02/22 01:30 Temperature 98.3 F Temperature Source Temporal Pulse Rate 75 66 Respiratory Rate 16 12 Blood Pressure 144/83 H 148/85 H Blood Pressure Mean 103 106 Pulse Ox 98 100 Oxygen Delivery Method Room Air Room Air Room Air 08/02/22 01:30 Temperature Temperature Source Pulse Rate 66 Respiratory Rate 12 Blood Pressure 148/85 H Blood Pressure Mean 106 Pulse Ox 100 Oxygen Delivery Method Room Air Positive well nourished General Appearance ED: NAD HEENT Reports moist mucous membranes and dry mucous membranes Mouth ED: Yes dry mucous membranes Mouth: dry mucous membranes Eyes PERRL and EOMs intact bilaterally Neck no lymphadenopathy Chest Wall inspection of chest normal and palpation of chest normal Resp normal respiratory effort and clear to auscultation bilaterally Auscultation: Negative for rales, rhonchi or wheezes Cardio Rate: regular rate and bradycardia GI normal to inspection, nondistended, normoactive bowel sounds Neuro oriented x3 and CN's II-XII intact bilaterally Manny Coma Scale: document GCS findings Spontaneous Obeys Commands Oriented 15 Sensorium / Orientation: alert, oriented to person and oriented to place Motor Exam: strength 5/5 throughout Psych mental status grossly normal Mood & Affect: Negative for anxious Skin General Skin Exam: Negative for jaundice NIHSS NIHSS Initial: 1a Level of Consciousness: 0 1b LOC Questions (Score 2 if aphasic/stupor): 0 1c LOC Commands (Only score 1st attempt): 0 2 Best Gaze (If aphasic, use reflexive mvmts.): 0 3 Visual: 0 4 Facial Palsy: 1 5 Motor Arm Right (UN = amputation/fusion): 0 5 Motor Arm Left: 0 6 Motor Leg Right: 0 6 Motor Leg Left: 0 7 Limb ataxia (Only + if out of proportion): 0 8 Sensory (Aphasia/stupor=0 or 1, coma=2): 0 9 Best Language: 0 10 Dysarthria (mute, coma=2, intubated=UN): 0 11 Extinction and Inattention (only scored if +): 0 Total Score: 1 MDM MDM MDM Narrative Medical decision making narrative: Patient presenting with tingling sensation in the left cheek as well as into theleft hand and specifically the pinky. She states currently on initial evaluation that she feels it still in her left cheek. Her NIH stroke scale score is 1 and this is for a mild facial palsy. Stroke team was not called. She can smile symmetrically and show her teeth but when she blows on her cheeks she cannot blow out the left cheek. Sensation is normal in the left cheek. Currently her hand does not have any sensation loss and motor strength is normal. Son also reports that she had some garbled speech earlier which is now resolved. I did order an SOC consult which is pending. In the meantime I did astroke work-up. Glucose is 115 at the bedside. CBC to assess white blood cell count, hemoglobin, platelets, differential is normal. PT, INR, PTT all within normal limits. BMP to assess renal function, electrolytes, glucose, anion gap. Slight prerenal azotemia. Otherwise glucose is 121 without anion gap. Electrolytes unremarkable. Chest x-ray on my interpretation shows no acute cardiopulmonary process but the radiologist notes there is a nonspecific hilar//suprahilar mediastinum nonspecific fullnesss. Radiologist are persistentagrees. EKG was obtained which shows a normal sinus rhythm with a ventricular rate of 63 bpm without sign of ischemic change or dysrhythmia on my interpretation. CT brain and CTA were obtained and these are both negative for acute findings intracranially. It is noted by the radiologist that there appears to be an 18 mm soft tissue nodule in the left superior mediastinum whichmay represent lymphadenopathy however it is incompletely characterized. Recommendation was for CT chest. There is also a left thyroid nodularity measuring up to 14 mm which would need follow-up ultrasound. Patient's high-sensitivity troponin came back at 74, and I went back to ask her again if she was sure she had no chest pain or shortness of breath. She states that the onlysymptom she may have had was some anxiety when she started to feel her symptoms she states that she was very anxious and her heart was racing. She stated at notime did she have chest pain. Patient will require admission to the hospital, Istill have not obtained an SOC consult but I will talk to the hospitalist regarding admission. Patient given 324 mg of aspirin. Impression: 1. Strokelike symptoms 2. Elevated troponin 3. Thyroid nodule 4. Soft tissue nodule superior mediastinum ? Lab Data Labs: Laboratory Results - last 24 hr 08/02/22 08/02/22 08/02/22 00:57 00:58 00:58 WBC 6.1 RBC 4.13 L Hgb 12.4 Hct 38.4 MCV 93.0 MCH 30.0 MCHC 32.3 RDW Std Deviation 48.1 H RDW Coeff of Richard 14.1 Plt Count 206 MPV 11.1 Immature Gran % (Auto) 0.200 Neut % (Auto) 54.0 Lymph % (Auto) 35.8 Rock % (Auto) 8.0 Eos % (Auto) 1.3 Baso % (Auto) 0.7 Absolute Neuts (auto) 3.3 Absolute Lymphs (auto) 2.18 Nucleated RBC % 0 PT 12.8 INR 1.0 APTT 29.0 Sodium Potassium Chloride Carbon Dioxide Anion Gap BUN Creatinine Estim Creat Clear Calc Est GFR (MDRD) Af Amer Est GFR (MDRD) Non-Af BUN/Creatinine Ratio Glucose Calcium Troponin I High Sens POC Glucose 115 H 08/02/22 00:58 WBC RBC Hgb Hct MCV MCH MCHC RDW Std Deviation RDW Coeff of Richard Plt Count MPV Immature Gran % (Auto) Neut % (Auto) Lymph % (Auto) Rock % (Auto) Eos % (Auto) Baso % (Auto) Absolute Neuts (auto) Absolute Lymphs (auto) Nucleated RBC % PT INR APTT Sodium 143 Potassium 3.7 Chloride 110 H Carbon Dioxide 28.0 Anion Gap 5 BUN 20 H Creatinine 0.66 Estim Creat Clear Calc 44.56 Est GFR (MDRD) Af Amer 113 Est GFR (MDRD) Non-Af 93 BUN/Creatinine Ratio 30.2 H Glucose 121 H Calcium 8.7 Troponin I High Sens 74 H POC Glucose Radiography Diagnostic Testing: Clinical Impression(s) from Imaging Studies Brain CT 08/02/22 00:50 IMPRESSION: No intracranial hemorrhage or acute territorial infarction. Findings discussed with Dr. Jewel Puente via phone at 10:26 PM PST on 08/01/2022. N.B. : The above Results were Read Back by Kahlil Stinson MD to Jewel Puente DO, and understanding confirmed on 08/02/2022 01:27:30 (ET). Electronically Signed: Kahlil Stinson MD at 1:29 EST , ADDENDUM: 08/02/22 0136 IMPRESSION: No intracranial hemorrhage or acute territorial infarction. Findings discussed with Dr. Jewel Puente via phone at 10:26 PM PST on 08/01/2022. N.B. : The above Results were Read Back by Kahlil Stinson MD to Jewel Puente DO, and understanding confirmed on 08/02/2022 01:27:30 (ET). Electronically Signed: Kahlil Stinson MD at 1:29 EST , Chest X-Ray 08/02/22 00:50 IMPRESSION: 1. No acute cardiopulmonary disease. 2. Nonspecific fullness of the right hilar/suprahilar region region and right superior mediastinum. Follow-up advised. Electronically Signed: Ruddy Cisse MD at 1:37 EST , Head/Neck CTA 08/02/22 00:53 IMPRESSION: 1. No flow-limiting stenosis, aneurysm or dissection in the head and neck. 2. Nonspecific 18 mm soft tissue nodule in the left superior mediastinum, may represent lymphadenopathy however incompletely characterized. CT chest recommended to further characterize. 3. Left thyroid nodularity measuring up to 14 mm, should be further characterized with nonemergent thyroid ultrasound. Findings reported to Dr. Jewel Puente via phone at 10:39 PM PST on 08/01/2022. N.B. : The above Results were Read Back by Kahlil Stinson MD to Jewel Puente DO, and understanding confirmed on 08/02/2022 01:40:13 (ET). Electronically Signed: Kahlil Stinson MD at 1:44 EST , ADDENDUM: 08/02/22 0151 IMPRESSION: 1. No flow-limiting stenosis, aneurysm or dissection in the head and neck. 2. Nonspecific 18 mm soft tissue nodule in the left superior mediastinum, may represent lymphadenopathy however incompletely characterized. CT chest recommended to further characterize. 3. Left thyroid nodularity measuring up to 14 mm, should be further characterized with nonemergent thyroid ultrasound. Findings reported to Dr. Jewel Puente via phone at 10:39 PM PST on 08/01/2022. N.B. : The above Results were Read Back by Kahlil Stinson MD to Jewel Puente DO, and understanding confirmed on 08/02/2022 01:40:13 (ET). Electronically Signed: Kahlil Stinson MD at 1:44 EST , Discharge Plan Triage Chief Complaint: Numb/Ting ED Provider: Jewel Puente Dx/Rx/DC Orders Prescriptions: No Action atorvastatin 10 mg tablet 10 mg PO QHS albuterol sulfate [ProAir HFA] 90 mcg/actuation HFA aerosol inhaler 1 - 2 puff inhalation Q6H PRN (Reason: shortness of breath or wheezing) Qty: 8.5 3RF acetaminophen 500 MG tablet 1,000 mg PO Q8 Qty: 90 0RF tramadol 50 mg tablet 50 mg PO PRN PRN (Reason: pain) ibuprofen 800 mg tablet 800 mg PO TID PRN (Reason: Pain Or Fever) Qty: 30 1RF diclofenac sodium 1 % gel 4 g TOPICAL .QID PRN (Reason: Pain Or Fever) Qty: 100 2RF ergocalciferol (vitamin D2) 1,250 mcg (50,000 unit) capsule 50,000 unit PO QWEEK Qty: 20 2RF esomeprazole magnesium 40 mg capsule,delayed release(DR/EC) 40 mg PO QDAY Qty: 90 1RF Primary Care Provider: Bean Bettencourt Referrals: Bean Bettencourt, [Primary Care Provider] - What to do if you have Problems For any increased pain, shortness of breath, bleeding, nausea or vomiting, chestpain, or any unexpected problems, contact your Primary Care Provider. Call [facility] ([phone]) or report to the closest Emergency Room. Call 911 if necessary. 08/02/22 0210 <Electronically signed by Jewel Puente DO> Cosigner Signature (if applicable): CC: Dr. Bean Bettencourt DO ~ Signed [facility] Work Phone: [phone]) 805-114303-10-[address] Puente [facility] August 02, 2022 1:19am Note Date/Time August 02, 2022 1:2 0am [facility] Medical Records Department [address] [place] [address] Telemedicine Confirmation Receipt 08/02/22 MR#: [id number] Acct: [id number] Name: VALERY DEVINE Rep #:[id number] : 1950 72 From: Jewel Puente DO PCP: Dr. Bean Bettencourt DO Status:RE G ER [facility] has confirmed receipt of a request for visit. This document confirms receipt of the order initiating the consult. To find the results of the consultation, please view the patient's reports for the scanned Telemed Consult. [facility] Work Phone: 1(484) 648-691512-23-2022 History of Present illness Narrative* PIPO Stuart - 05/17/2022 11:45 AM EST See downtime forms. James Gray APRN-[employer] documented in this encounterSelect Medical [facility]22 NotePatient Outreach (NETNAV) VALERY DEVINE ([id number]) 1950 F Date Time Provider Department 08/29/21 NO PCP NETNAV During your visit today, we recorded the following information about you: Palmira Alvarez Pss 08/29/2021 10:53 AM Signed [facility]IG[facility] [...] Message Sent to Practice: No Navigation Signature: Palmira Alvarez Pss August 29, 2021 10:53 AM Allergies As [...] for gynecological examination (genera*07/16/2021 Encounter Status:Closed by PALMIRA CARRIZALES on 08/29/21[facility]04-06-2022 NoteHNO ID: [id number] Author: Palmira Holcomb Service: ? Author Type: ? Type: Progress Notes Filed: 08/29/2021 10:53 AM Note Text: POPULATION HEALTH NAVIGATION OUTREACH Action/FYI Patient Outreach: [...] Message Sent to Practice: No Navigation Signature: Palmira Ken Antonio Pss August 29, 2021 10:53 [facility]04-06-2022 History of Present illness Narrative* Palmira Chakrabortyain Pss - 08/29/2021 10:53 AM EDT POPULATION HEALTH NAVIGATION OUTREACH Action/FYI Patient Outreach: [...] Message Sent to Practice: No Navigation Signature: Palmira Holcomb August 29, 2021 10:53 [facility] NoteHNO ID: [id number] Author: RT Elijah(Mahendra) Service: ? Author Type: Product Safety Test Engineer Type: Progress Notes Filed: 07/26/2021 1:11 PM [...] Completed: Abdomen/Pelvis SIGNATURE: RT Jace(R) PATIENT NAME: Valery Devine DATE: July 26, 2021 TIME: 1:10 [facility]02-21-2022 NoteHNO ID: [id number] Author: Tricia Nieves MD Service: ? Author Type: Physician Type: Progress Notes Filed: 07/16/2021 9:25 AM Note Text: Valery Devine is a 71 year old female who [...] L3 SAB1 IAB0 Ectopic0 Multiple0 Live Births3 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 History LMP: Postmenopausal Age at Menarche: Age at First : Age at Menopause: 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 History Comments: Sexual Activity: Not Asked; No [...] CATARACT SURGERY, COMPLEX Bilateral - DELIVERY ONLY 1971,1973,1980 , low transverse - DANDC (MISSED AB [...] external genitalia normal, normal Bartholin's glands, urethra, Mogollon's glands, no vulvar lesions, no cervical lesions, good vaginal support, physiologic discharge present, normal appearing perineal body and perianal region BIMANUAL: uterus normal size, shape and consistency, no adnexal masses and non-tender ASSESSMENT AND PLAN: check pelvic US some pelvic floor spasm on exam consider pelvic floor PT Medical Decision Making Tricia Nieves, [facility] note Author Dr. Puente [facility] August 02, 2022 1:19am Note Date/Time August 02, 2022 1:2 0am [facility] Medical Records Department [address] [place] [address] Telemedicine Confirmation Receipt 08/02/22 MR#: [id number] Acct: [id number] Name: VALERY DEVINE Rep #:[id number] : 1950 72 From: Jewel Puente DO PCP: Dr. Bean Bettencourt, DO Status:RE [facility] [facility] has confirmed receipt of a request for visit. This document confirms receipt of the order initiating the consult. To find the results of the consultation, please view the patient's reports for the scanned Telemed Consult. [facility] Work Phone: Discharge summary Author Dr. Puente [facility] August 02, 2022 2:10am Note Date/Time August 02, 2022 1:0 1am [facility] Medical Records Department [address] [place] [address] Emergency Department Summary 08/02/22 MR#: [id number] Acct: [id number] Name: VALERY DEVINE Rep #:[id number] : 1950 72 From: Jewel Puente DO PCP: Dr. Bean Bettencourt, DO Status:RE [facility] Location: ED HPI History of Present Illness Chief Complaint: Numb/Ting Narrative Narrative: 72-year-old female presenting for evaluation of strokelike symptoms. She statesshbryan was sitting in her son room watching television and fell asleep. She stateshe woke up about 10:30 PM and felt like her face felt funny on the left and was tingly. She also notes that her left hand was tingly and specifically points toher left pinky. She states that she initially thought it would go away so she did not call anybody right away. She called her son at about 1115 [address] he drove to the house. He does state that her voice was garbled a little bit and mom believe he when she called. This is apparently resolved. In the emergency roomshe still having tingling in the left face but no facial droop. No slurred speech. She is not having any pain. No history of stroke, but does states she had a similar episode of this in the past but never got evaluated because it went away. [facility] Medical History Acute bronchitis, unspecified Anxiety Bruises easily Chronic cough Cough GERD (gastroesophageal reflux disease) History of shingles Lab test negative for COVID-19 virus Lumbar radiculopathy Lung cancer Sciatica URI (upper respiratory infection) Urinary tract infection with hematuria Vitamin D deficiency Home Medications acetaminophen 500 mg tablet 1,000 mg PO Q8 #90 tabs 08/10/19 [Rx Last Taken Unknown] atorvastatin 10 mg tablet 10 mg PO QHS 06/13/20 [History Last Taken Unknown] diclofenac sodium 1 % topical gel 4 g topical .QID PRN Pain Or Fever #100 grams 07/27/21 [Rx Last Taken Unknown] ibuprofen 800 mg tablet 800 mg PO TID PRN Pain Or Fever #30 tabs 07/27/21 [Rx Last Taken Unknown] ergocalciferol (vitamin D2) 1,250 mcg (50,000 unit) capsule 50,000 unit PO QWEEKsupplement #20 caps 01/23/22 [Rx Last Taken Unknown] albuterol sulfate 90 mcg/actuation aerosol inhaler (ProAir HFA) 1 - 2 puff inhalation Q6H PRN shortness of breath or wheezing #8.5 grams 03/10/22 [Rx Last Taken Unknown] esomeprazole magnesium 40 mg capsule,delayed release 40 mg PO QDAY gerd #90 caps07/10/22 [Rx Last Taken Unknown] tramadol 50 mg tablet 50 mg PO PRN PRN pain 08/02/22 [History Last Taken Unknown] Allergy/AdvReac Type Severity Reaction Status Date / Time Sulfa (Sulfonamide Allergy Intermediate sores in Verified 08/02/22 00:15 Antibiotics) mouth amoxicillin [From Amoxil] AdvReac Intermediate yeast & Verified 08/02/22 00:15 bladder infections Family History Aunt Colon cancer Diabetes Mother Thyroid disorder Heart disease Son Hypercholesteremia Grandmother Heart disease Surgical History History of back surgery History of bilateral cataract extraction history of bunionectomy History of section History of colonoscopy History of cystoscopy History of esophagogastroduodenoscopy (EGD) History of lateral meniscus repair of left knee History of lobectomy of lung History of total left knee replacement Social History Smoking Status: Former smoker quit date: 05/26/08 Tobacco: How many years used: 40 alcohol intake: current alcohol intake frequency: holidays/special occasions only substance use type: does not use ROS ROS ED Constitutional Constitutional ED: Denies chills or fever(s) Eyes Eyes: Denies blurry vision or change in vision ENT ENT ED: Denies rhinorrhea or sore throat Cardiovascular Cardiovascular: Denies chest pain Respiratory/Chest Respiratory/Chest: Denies cough or dyspnea Gastrointestinal Gastrointestinal: Denies abdominal pain, constipation, diarrhea, melena or nausea Genitourinary Genitourinary ED: Denies dysuria or hematuria Neurologic Neurologic: Reports paresthesias LUE and other Details: Tingling to left cheek. Psychiatric Psychiatric: Denies anxiety or depression Endocrine Endocrinology: Denies polydipsia or polyphagia EXAM Physical Exam Const Vital Signs: 08/02/22 00:12 08/02/22 01:30 08/02/22 01:30 Temperature 98.3 F Temperature Source Temporal Pulse Rate 75 66 Respiratory Rate 16 12 Blood Pressure 144/83 H 148/85 H Blood Pressure Mean 103 106 Pulse Ox 98 100 Oxygen Delivery Method Room Air Room Air Room Air 08/02/22 01:30 Temperature Temperature Source Pulse Rate 66 Respiratory Rate 12 Blood Pressure 148/85 H Blood Pressure Mean 106 Pulse Ox 100 Oxygen Delivery Method Room Air Positive well nourished General Appearance ED: NAD HEENT Reports moist mucous membranes and dry mucous membranes Mouth ED: Yes dry mucous membranes Mouth: dry mucous membranes Eyes PERRL and EOMs intact bilaterally Neck no lymphadenopathy Chest Wall inspection of chest normal and palpation of chest normal Resp normal respiratory effort and clear to auscultation bilaterally Auscultation: Negative for rales, rhonchi or wheezes Cardio Rate: regular rate and bradycardia GI normal to inspection, nondistended, normoactive bowel sounds Neuro oriented x3 and CN's II-XII intact bilaterally [place] Coma Scale: document GCS findings Spontaneous Obeys Commands Oriented 15 Sensorium / Orientation: alert, oriented to person and oriented to place Motor Exam: strength 5/5 throughout Psych mental status grossly normal Mood & Affect: Negative for anxious Skin General Skin Exam: Negative for jaundice NIHSS NIHSS Initial: 1a Level of Consciousness: 0 1b LOC Questions (Score 2 if aphasic/stupor): 0 1c LOC Commands (Only score 1st attempt): 0 2 Best Gaze (If aphasic, use reflexive mvmts.): 0 3 Visual: 0 4 Facial Palsy: 1 5 Motor Arm Right (UN = amputation/fusion): 0 5 Motor Arm Left: 0 6 Motor Leg Right: 0 6 Motor Leg Left: 0 7 Limb ataxia (Only + if out of proportion): 0 8 Sensory (Aphasia/stupor=0 or 1, coma=2): 0 9 Best Language: 0 10 Dysarthria (mute, coma=2, intubated=UN): 0 11 Extinction and Inattention (only scored if +): 0 Total Score: 1 MDM MDM MDM Narrative Medical decision making narrative: Patient presenting with tingling sensation in the left cheek as well as into theleft hand and specifically the pinky. She states currently on initial evaluation that she feels it still in her left cheek. Her NIH stroke scale score is 1 and this is for a mild facial palsy. Stroke team was not called. She can smile symmetrically and show her teeth but when she blows on her cheeks she cannot blow out the left cheek. Sensation is normal in the left cheek. Currently her hand does not have any sensation loss and motor strength is normal. Son also reports that she had some garbled speech earlier which is now resolved. I did order an SOC consult which is pending. In the meantime I did astroke work-up. Glucose is 115 at the bedside. CBC to assess white blood cell count, hemoglobin, platelets, differential is normal. PT, INR, PTT all within normal limits. BMP to assess renal function, electrolytes, glucose, anion gap. Slight prerenal azotemia. Otherwise glucose is 121 without anion gap. Electrolytes unremarkable. Chest x-ray on my interpretation shows no acute cardiopulmonary process but the radiologist notes there is a nonspecific hilar//suprahilar mediastinum nonspecific fullnesss. Radiologist are persistentagrees. EKG was obtained which shows a normal sinus rhythm with a ventricular rate of 63 bpm without sign of ischemic change or dysrhythmia on my interpretation. CT brain and CTA were obtained and these are both negative for acute findings intracranially. It is noted by the radiologist that there appears to be an 18 mm soft tissue nodule in the left superior mediastinum whichmay represent lymphadenopathy however it is incompletely characterized. Recommendation was for CT chest. There is also a left thyroid nodularity measuring up to 14 mm which would need follow-up ultrasound. Patient's high-sensitivity troponin came back at 74, and I went back to ask her again if she was sure she had no chest pain or shortness of breath. She states that the onlysymptom she may have had was some anxiety when she started to feel her symptoms she states that she was very anxious and her heart was racing. She stated at notime did she have chest pain. Patient will require admission to the hospital, Istill have not obtained an SOC consult but I will talk to the hospitalist regarding admission. Patient given 324 mg of aspirin. Impression: 1. Strokelike symptoms 2. Elevated troponin 3. Thyroid nodule 4. Soft tissue nodule superior mediastinum ? Lab Data Labs: Laboratory Results - last 24 hr 08/02/22 08/02/22 08/02/22 00:57 00:58 00:58 WBC 6.1 RBC 4.13 L Hgb 12.4 Hct 38.4 MCV 93.0 MCH 30.0 MCHC 32.3 RDW Std Deviation 48.1 H RDW Coeff of Richard 14.1 Plt Count 206 MPV 11.1 Immature Gran % (Auto) 0.200 Neut % (Auto) 54.0 Lymph % (Auto) 35.8 Rock % (Auto) 8.0 Eos % (Auto) 1.3 Baso % (Auto) 0.7 Absolute Neuts (auto) 3.3 Absolute Lymphs (auto) 2.18 Nucleated RBC % 0 PT 12.8 INR 1.0 APTT 29.0 Sodium Potassium Chloride Carbon Dioxide Anion Gap BUN Creatinine Estim Creat Clear Calc Est GFR (MDRD) Af Amer Est GFR (MDRD) Non-Af BUN/Creatinine Ratio Glucose Calcium Troponin I High Sens POC Glucose 115 H 08/02/22 00:58 WBC RBC Hgb Hct MCV MCH MCHC RDW Std Deviation RDW Coeff of Richard Plt Count MPV Immature Gran % (Auto) Neut % (Auto) Lymph % (Auto) Rock % (Auto) Eos % (Auto) Baso % (Auto) Absolute Neuts (auto) Absolute Lymphs (auto) Nucleated RBC % PT INR APTT Sodium 143 Potassium 3.7 Chloride 110 H Carbon Dioxide 28.0 Anion Gap 5 BUN 20 H Creatinine 0.66 Estim Creat Clear Calc 44.56 Est GFR (MDRD) Af Amer 113 Est GFR (MDRD) Non-Af 93 BUN/Creatinine Ratio 30.2 H Glucose 121 H Calcium 8.7 Troponin I High Sens 74 H POC Glucose Radiography Diagnostic Testing: Clinical Impression(s) from Imaging Studies Brain CT 08/02/22 00:50 IMPRESSION: No intracranial hemorrhage or acute territorial infarction. Findings discussed with Dr. Jewel Puente via phone at 10:26 PM PST on 08/01/2022. N.B. : The above Results were Read Back by Kahlil Stinson MD to Jewel Puente DO, and understanding confirmed on 08/02/2022 01:27:30 (ET). Electronically Signed: Kahlil Stinson MD at 1:29 EST , ADDENDUM: 08/02/22 0136 IMPRESSION: No intracranial hemorrhage or acute territorial infarction. Findings discussed with Dr. Jewel Puente via phone at 10:26 PM PST on 08/01/2022. N.B. : The above Results were Read Back by Kahlil Stinson MD to Jewel Puente DO, and understanding confirmed on 08/02/2022 01:27:30 (ET). Electronically Signed: Kahlil Stinson MD at 1:29 EST , Chest X-Ray 08/02/22 00:50 IMPRESSION: 1. No acute cardiopulmonary disease. 2. Nonspecific fullness of the right hilar/suprahilar region region and right superior mediastinum. Follow-up advised. Electronically Signed: Ruddy Cisse MD at 1:37 EST , Head/Neck CTA 08/02/22 00:53 IMPRESSION: 1. No flow-limiting stenosis, aneurysm or dissection in the head and neck. 2. Nonspecific 18 mm soft tissue nodule in the left superior mediastinum, may represent lymphadenopathy however incompletely characterized. CT chest recommended to further characterize. 3. Left thyroid nodularity measuring up to 14 mm, should be further characterized with nonemergent thyroid ultrasound. Findings reported to Dr. Jewel Puente via phone at 10:39 PM PST on 08/01/2022. N.B. : The above Results were Read Back by Kahlil Stinson MD to Jewel Puente DO, and understanding confirmed on 08/02/2022 01:40:13 (ET). Electronically Signed: Kahlil Stinson MD at 1:44 EST , ADDENDUM: 08/02/22 0151 IMPRESSION: 1. No flow-limiting stenosis, aneurysm or dissection in the head and neck. 2. Nonspecific 18 mm soft tissue nodule in the left superior mediastinum, may represent lymphadenopathy however incompletely characterized. CT chest recommended to further characterize. 3. Left thyroid nodularity measuring up to 14 mm, should be further characterized with nonemergent thyroid ultrasound. Findings reported to Dr. Jewel Puente via phone at 10:39 PM PST on 08/01/2022. N.B. : The above Results were Read Back by Kahlil Stinson MD to Jewel Puente DO, and understanding confirmed on 08/02/2022 01:40:13 (ET). Electronically Signed: Kahlil Stinson MD at 1:44 EST , Discharge Plan Triage Chief Complaint: Numb/Ting ED Provider: Jewel Puente Dx/Rx/DC Orders Prescriptions: No Action atorvastatin 10 mg tablet 10 mg PO QHS albuterol sulfate [ProAir HFA] 90 mcg/actuation HFA aerosol inhaler 1 - 2 puff inhalation Q6H PRN (Reason: shortness of breath or wheezing) Qty: 8.5 3RF acetaminophen 500 MG tablet 1,000 mg PO Q8 Qty: 90 0RF tramadol 50 mg tablet 50 mg PO PRN PRN (Reason: pain) ibuprofen 800 mg tablet 800 mg PO TID PRN (Reason: Pain Or Fever) Qty: 30 1RF diclofenac sodium 1 % gel 4 g TOPICAL .QID PRN (Reason: Pain Or Fever) Qty: 100 2RF ergocalciferol (vitamin D2) 1,250 mcg (50,000 unit) capsule 50,000 unit PO QWEEK Qty: 20 2RF esomeprazole magnesium 40 mg capsule,delayed release(DR/EC) 40 mg PO QDAY Qty: 90 1RF Primary Care Provider: Bean Bettencourt Referrals: Bean Bettencourt, [Primary Care Provider] - What to do if you have Problems For any increased pain, shortness of breath, bleeding, nausea or vomiting, chestpain, or any unexpected problems, contact your Primary Care Provider. Call [facility] ([phone]) or report to the closest Emergency Room. Call 911 if necessary. 08/02/22209 <Electronically signed by Jewel Puente DO> Cosigner Signature (if applicable): CC: Dr. Bean Bettencourt DO ~ Signed [facility] Work Phone: Discharge summary Author Dr. Tyler [facility] August 02, 2022 1:56pm Note Date/Time August 02, 2022 1:5 6pm [facility] Medical Records Department [address] [place] [address] Discharge Summary 08/02/22 1349 MR#: [id number] Acct: [id number] Name: VALERY DEVINE Rep #:[id number] : 1950 72 From: Salvador Thomas PCP: Dr. Bean Bettencourt, DO Status:AD Sesar ESTRADA Location: [place] [address] Providers Date of Admission: 08/02/22 Date of Discharge: 08/02/22 Primary Care Physician: Dr. Bean Bettencourt, DO Reason For Visit: TIA/CVA, INDETERM TROP Diagnosis Discharge Diagnosis (1) TIA (transient ischemic attack): Status: Acute Code(s): G45.9 - Transient cerebral ischemic attack, unspecified Plan 72-year-old female admitted for evaluation of strokelike symptoms and concern for stroke. She woke up about 10:30 PM on 08/01 with feeling of tingling and funny sensation over her face. Her left hand and left little finger was also tingling.. She came to [facility] as it was persisting. Patient voice was also garbled. Garbled speech has resolved. No facial droop. No prior history of a stroke. 1. Acute stroke ruled out: CT brain does not show any acute abnormality. CTA head and neck reported no flow-limiting stenosis aneurysm or dissection in the head and neck. Incidental finding of nonspecific 18 mm soft tissue nodule in the left superior mediastinum probably lymphadenopathy although incompletely characterized. MRI brain does not show acute or subacute intracranial abnormality. Patient wanted CT chest with IV contrast to further characterize soft tissue nodule but it will not be done until 24 hours of previous CTA head and neck and her admission does not qualify for inpatient therefore I talked to the patient and she agrees. I asked the patient to schedule outpatient CT chestwith IV contrast with PCP. She agreed. 2D echo, bubble contrast study is positive for PFO. Aneurysmal atrial septum. Patient advised to follow with PCP. Moderate to severe 3+ TR. 2. Intermittent troponin: Patient troponin is mildly elevated above upper limit. Patient did not had any chest pain or shortness of breath. She had a stress test couple years ago and was negative. 3. Hyperglycemia: A1c 5.5 normal. Diabetes mellitus or prediabetes ruled out. 4. Other multiple comorbidities include anxiety and depression, chronic lumbar back pain with sciatica/radiculopathy, dyslipidemia, GERD former tobacco use andobesity: Patient quit smoking. Patient is discharged home. Discharge medication reconciliation done. Discharge follow-up instructions completed. Discharge process discussed with the patient and all questions were answered to patient's satisfaction. Total time spent, exact 35 minutes on discharge meds reconciliation, examination, coordination of care with nurses and ancillary staff, review of imaging and blood test and discussion with the patient on follow-up instructions. Laboratory Results 08/02/22 00:57: POC Glucose 115 H 08/02/22 00:58: WBC 6.1, RBC 4.13 L, Hgb 12.4, Hct 38.4, MCV 93.0, MCH 30.0, MCHC 32.3, RDW Std Deviation 48.1 H, RDW Coeff of Richard 14.1, Plt Count 206, MPV 11.1, Immature Gran % (Auto) 0.200, Neut % (Auto) 54.0, Lymph % (Auto) 35.8, Rock% (Auto) 8.0, Eos % (Auto) 1.3, Baso % (Auto) 0.7, Absolute Neuts (auto) 3.3, Absolute Lymphs (auto) 2.18, Nucleated RBC % 0 08/02/22 00:58: PT 12.8, INR 1.0, APTT 29.0 08/02/22 00:58: Sodium 143, Potassium 3.7, Chloride 110 H, Carbon Dioxide 28.0, Anion Gap 5, BUN 20 H, Creatinine 0.66, Estim Creat Clear Calc 44.56, Est GFR (MDRD) Af Amer 113, Est GFR (MDRD) Non-Af 93, BUN/Creatinine Ratio 30.2 H, Glucose 121 H, Calcium 8.7, Troponin I High Sens 74 H 08/02/22 00:58: Magnesium 1.8 08/02/22 03:56: TSH 2.47, Free T4 0.92 08/02/22 03:56: Hemoglobin A1c 5.5 08/02/22 03:56: Troponin I High Sens 72 H 08/02/22 06:25: Troponin I High Sens 70 H Clinical Impression(s) from Imaging Studies Brain CT 08/02/22 00:50 IMPRESSION: No intracranial hemorrhage or acute territorial infarction. Findings discussed with Dr. Jewel Puente via phone at 10:26 PM PST on 08/01/2022. N.B. : The above Results were Read Back by Kahlil Stinson MD to Jewel Puente DO, and understanding confirmed on 08/02/2022 01:27:30 (ET). Electronically Signed: Kahlil Stinson MD at 1:29 EST , ADDENDUM: 08/02/22 0136 IMPRESSION: No intracranial hemorrhage or acute territorial infarction. Findings discussed with Dr. Jewel Puente via phone at 10:26 PM PST on 08/01/2022. N.B. : The above Results were Read Back by Kahlil Stinson MD to Jewel Puente DO, and understanding confirmed on 08/02/2022 01:27:30 (ET). Electronically Signed: Kahlil Stinson MD at 1:29 EST , Chest X-Ray 08/02/22 00:50 IMPRESSION: 1. No acute cardiopulmonary disease. 2. Nonspecific fullness of the right hilar/suprahilar region region and right superior mediastinum. Follow-up advised. Electronically Signed: Ruddy Cisse MD at 1:37 EST , Head/Neck CTA 08/02/22 00:53 IMPRESSION: 1. No flow-limiting stenosis, aneurysm or dissection in the head and neck. 2. Nonspecific 18 mm soft tissue nodule in the left superior mediastinum, may represent lymphadenopathy however incompletely characterized. CT chest recommended to further characterize. 3. Left thyroid nodularity measuring up to 14 mm, should be further characterized with nonemergent thyroid ultrasound. Findings reported to Dr. Jewel Puente via phone at 10:39 PM PST on 08/01/2022. N.B. : The above Results were Read Back by Kahlil Stinson MD to Jewel Puente DO and understanding confirmed on 08/02/2022 01:40:13 (ET). Electronically Signed: Kahlil Stinson MD at 1:44 EST , ADDENDUM: 08/02/22 0151 IMPRESSION: 1. No flow-limiting stenosis, aneurysm or dissection in the head and neck. 2. Nonspecific 18 mm soft tissue nodule in the left superior mediastinum, may represent lymphadenopathy however incompletely characterized. CT chest recommended to further characterize. 3. Left thyroid nodularity measuring up to 14 mm, should be further characterized with nonemergent thyroid ultrasound. Findings reported to Dr. Jewel Puente via phone at 10:39 PM PST on 08/01/2022. N.B. : The above Results were Read Back by Kahlil Stinson MD to Jewel Puente DO, and understanding confirmed on 08/02/2022 01:40:13 (ET). Electronically Signed: Kahlil Stinson MD at 1:44 EST , Brain MRI 08/02/22 03:02 IMPRESSION: 1. No MRI evidence of acute or subacute ischemic infarct or acute intracranial abnormality. 2. Abnormal nonexpansile T1 hypointense lesion in the left parietal bone is hyperintense on T2. This is overlying the left supramarginal gyrus. This corresponds to the hypodense intradiploic lesion in the left parietal bone seen on CT. Recommend bone scan for further evaluation. Electronically Signed: Edis Randall MD at 12:12 EST , Echocardiogram 08/02/22 03:02 Interpretation Summary The estimated ejection fraction is 65 %. The right atrium is moderately enlarged. Aneurysmal atrial septum. Bubble contrast study is positive for PFO. Pulmonary artery systolic pressure is 43 mmHg. Moderate to severe (3+) tricuspid valve insufficiency. Ordering Physician: Saray Meadows Referring Physician: Kaz Bettencourt M.D. Performed By: Silvia Hernandez RCS Medications at Discharge Home Medications acetaminophen 500 mg tablet 1,000 mg PO Q8 #90 tabs 08/10/19 atorvastatin 10 mg tablet 10 mg PO QHS 06/13/20 diclofenac sodium 1 % topical gel 4 g topical .QID PRN Pain Or Fever #100 grams 07/27/21 ergocalciferol (vitamin D2) 1,250 mcg (50,000 unit) capsule 50,000 unit PO QWEEKsupplement #20 caps 01/23/22 albuterol sulfate 90 mcg/actuation aerosol inhaler (ProAir HFA) 1 - 2 puff inhalation Q6H PRN shortness of breath or wheezing #8.5 grams 03/10/22 esomeprazole magnesium 40 mg capsule,delayed release 40 mg PO QDAY gerd #90 caps07/10/22 ibuprofen 800 mg tablet 600 mg PO TID PRN Pain Or Fever #30 tabs 08/02/22 Physical Exam Narrative Seen in the morning and afternoon. I went over scan and imaging test. Discussed with the patient, her son in the morning and her friend in afternoon. Physical exam General: Alert, Oriented x3, Cooperative HEENT: Atraumatic, PERRLA, EOMI, Normocephalic Oral: No Gingival or Mucosal Lesions/ Ulcerations Neck: Supple, No JVD, Negative Carotid Bruits Lungs: Air entry diminished in bilateral lung bases. No crepitation/rhonchi Cardiovascular: Regular rate, Regular Rhythm, Normal S1, Normal S2, systolic murmur LLSB. Abdomen: Bowel Sounds Present, Soft, Non Tender, Non-Distended : No renal angle tenderness. No suprapubic tenderness. Extremities: No edema, Capillary Refill Less than 3 Seconds Skin: No rashes, No breakdown Musculoskeletal: No Tenderness to Palpation of Joints or Extremities Neurological: Cranial nerves II-XII grossly intact, DTR 2+/4 and Symmetrical, Neuro grossly intact Psych/Mental Status: Mildly anxious. Weight / BMI Weight Weight: 167 lb 1.766 oz Body Mass Index (BMI) 28.6 ABG / Lab / Microbiology Data Result Diagrams: 08/02/22 00:58 08/02/22 00:58 Laboratory: Laboratory Results - last 24 hr 08/02/22 00:57: POC Glucose 115 H 08/02/22 00:58: WBC 6.1, RBC 4.13 L, Hgb 12.4, Hct 38.4, MCV 93.0, MCH 30.0, MCHC 32.3, RDW Std Deviation 48.1 H, RDW Coeff of Richard 14.1, Plt Count 206, MPV 11.1, Immature Gran % (Auto) 0.200, Neut % (Auto) 54.0, Lymph % (Auto) 35.8, Rock % (Auto) 8.0, Eos % (Auto) 1.3, Baso % (Auto) 0.7, Absolute Neuts (auto) 3.3, Absolute Lymphs (auto) 2.18, Nucleated RBC % 0 08/02/22 00:58: PT 12.8, INR 1.0, APTT 29.0 08/02/22 00:58: Sodium 143, Potassium 3.7, Chloride 110 H, Carbon Dioxide 28.0, Anion Gap 5, BUN 20 H, Creatinine 0.66, Estim Creat Clear Calc 44.56, Est GFR (MDRD) Af Amer 113, Est GFR (MDRD) Non-Af 93, BUN/Creatinine Ratio 30.2 H, Glucose 121 H, Calcium 8.7, Troponin I High Sens 74 H 08/02/22 00:58: Magnesium 1.8 08/02/22 03:56: TSH 2.47, Free T4 0.92 08/02/22 03:56: Hemoglobin A1c 5.5 08/02/22 03:56: Troponin I High Sens 72 H 08/02/22 06:25: Troponin I High Sens 70 H Radiography Diagnostic Testing: Radiology Impression Brain CT 08/02/22 00:50 IMPRESSION: No intracranial hemorrhage or acute territorial infarction. Findings discussed with Dr. Jewel Puente via phone at 10:26 PM PST on 08/01/2022. N.B. : The above Results were Read Back by Kahlil Stinson MD to Jewel Puente DO, and understanding confirmed on 08/02/2022 01:27:30 (ET). Electronically Signed: Kahlil Stinson MD at 1:29 EST , ADDENDUM: 08/02/22 0136 IMPRESSION: No intracranial hemorrhage or acute territorial infarction. Findings discussed with Dr. Jewel Puente via phone at 10:26 PM PST on 08/01/2022. N.B. : The above Results were Read Back by Kahlil Stinson MD to Jewel Puente DO, and understanding confirmed on 08/02/2022 01:27:30 (ET). Electronically Signed: Kahlil Stinson MD at 1:29 EST , Chest X-Ray 08/02/22 00:50 IMPRESSION: 1. No acute cardiopulmonary disease. 2. Nonspecific fullness of the right hilar/suprahilar region region and right superior mediastinum. Follow-up advised. Electronically Signed: Ruddy Cisse MD at 1:37 EST , Head/Neck CTA 08/02/22 00:53 IMPRESSION: 1. No flow-limiting stenosis, aneurysm or dissection in the head and neck. 2. Nonspecific 18 mm soft tissue nodule in the left superior mediastinum, may represent lymphadenopathy however incompletely characterized. CT chest recommended to further characterize. 3. Left thyroid nodularity measuring up to 14 mm, should be further characterized with nonemergent thyroid ultrasound. Findings reported to Dr. Jewel Puente via phone at 10:39 PM PST on 08/01/2022. N.B. : The above Results were Read Back by Kahlil Stinson MD to Jewel Puente DO, and understanding confirmed on 08/02/2022 01:40:13 (ET). Electronically Signed: Kahlil Stinson MD at 1:44 EST , ADDENDUM: 08/02/22 0151 IMPRESSION: 1. No flow-limiting stenosis, aneurysm or dissection in the head and neck. 2. Nonspecific 18 mm soft tissue nodule in the left superior mediastinum, may represent lymphadenopathy however incompletely characterized. CT chest recommended to further characterize. 3. Left thyroid nodularity measuring up to 14 mm, should be further characterized with nonemergent thyroid ultrasound. Findings reported to Dr. Jewel Puente via phone at 10:39 PM PST on 08/01/2022. N.B. : The above Results were Read Back by Kahlil Stinson MD to Jewel Puente DO, and understanding confirmed on 08/02/2022 01:40:13 (ET). Electronically Signed: Kahlil Stinson MD at 1:44 EST , Brain MRI 08/02/22 03:02 IMPRESSION: 1. No MRI evidence of acute or subacute ischemic infarct or acute intracranial abnormality. 2. Abnormal nonexpansile T1 hypointense lesion in the left parietal bone is hyperintense on T2. This is overlying the left supramarginal gyrus. This corresponds to the hypodense intradiploic lesion in the left parietal bone seen on CT. Recommend bone scan for further evaluation. Electronically Signed: Edis Randall MD at 12:12 EST , Echocardiogram 08/02/22 03:02 Interpretation Summary The estimated ejection fraction is 65 %. The right atrium is moderately enlarged. Aneurysmal atrial septum. Bubble contrast study is positive for PFO. Pulmonary artery systolic pressure is 43 mmHg. Moderate to severe (3+) tricuspid valve insufficiency. Ordering Physician: Saray Meadows Referring Physician: Kaz Bettencourt M.D. Performed By: Silvia Hernandez RCS D/C Instructions Discharge Diet: No restrictions Weight Bearing Status: Weight bearing as tolerated Call your doctor if you observe: Fever of 101 or Higher, Coldness, Increased Pain, Numbness or Tingling, Change in Color, Inability to urinate, Inability to have a bowel movement, Using more than 1 pad per hour, Shortness of breath, Dizziness, Fainting spells, Swelling in the ankles, Chest pain, Prolonged hiccupping, Increased palpitations (irregular heartbeat) and Calf discomfort When: IN 2 WEEKS Meaningful Use Info Meaningful Use Diagnoses (Choose all that apply): None applicable Discharge Plan Admission Admit Date/Time: 08/02/22 02:00 Primary Reason for Your Visit: Acute stroke ruled out. Attending Provider: Salvador Tyler Primary Care Provider: Bean Bettencourt Consulting Providers: Saray Meadows Discharge Orders/Prescriptions Prescriptions: Continued atorvastatin 10 mg tablet 10 mg PO QHS albuterol sulfate [ProAir HFA] 90 mcg/actuation HFA aerosol inhaler 1 - 2 puff inhalation Q6H PRN (Reason: shortness of breath or wheezing) Qty: 8.5 3RF acetaminophen 500 MG tablet 1,000 mg PO Q8 Qty: 90 0RF diclofenac sodium 1 % gel 4 g TOPICAL .QID PRN (Reason: Pain Or Fever) Qty: 100 2RF ergocalciferol (vitamin D2) 1,250 mcg (50,000 unit) capsule 50,000 unit PO QWEEK Qty: 20 2RF esomeprazole magnesium 40 mg capsule,delayed release(DR/EC) 40 mg PO QDAY Qty: 90 1RF Changed ibuprofen 800 mg tablet 600 mg PO TID PRN (Reason: Pain Or Fever) Qty: 30 1RF Referrals / Follow Up: Bean Bettencourt DO [Primary Care Provider] - Within 1 Week (Patient will need CT chest with IV contrast 18 mm nodule partially visualized in the left superiormediastinum and possible lymphadenopathy) Disposition Disposition (needs filled in before D/C Order can be placed): Home, Self Care Charges/Coding Visit Charges Inpatient E&M: 36642 Disch Hosp >30min 08/02/22 1356 <Electronically signed by Salvador Tyler MD> Cosigner Signature (if applicable): CC: Dr. Bean Bettencourt DO; Dr. Salvador Tyler MD~ Signed [facility] Work Phone: evaluation + Plan note Future Appointments Appointment Date:03/07/2022 11:00:00 AM Scheduled Provider:SHASHI GREEN Location:[facility] Appointment Type:CV [facility] Evaluation note* Diagnosis Onset Date Resolution Status Exposure to COVID-19 virus a cute UTI (urinary tract infection) acute [facility] Work Phone: Evaluation note* Diagnosis Onset Date Resolution Status Chronic cough chronic COVID-19 noneactive [facility] Work Phone: Evaluation note* Diagnosis Influenza A- Primary Influenza with other respiratory manifestations Flu-like symptoms Influenza with other respiratory manifestations Acute [facility] Diagnosis Onset Date Resolution Status COVID-19 noneactive Influenza due to influenza virus, type A, human acute Bronchitis acute Chronic cough chronic Urinary tract infection with hematuria acute [facility] Work Phone: Evaluation note* Diagnosis Onset Date Resolution Status Influenza due to influenza virus, type A, human acute Bronchitis acute Chronic cough chronic Urinary tract infection with hematuria acute Bruises easily acute Hematuria noneactive TIA (transient ischemic attack) acute [facility] Work Phone: Evaluation note* Diagnosis Onset Date Resolution Status Influenza due to influenza virus, type A, human acute Bronchitis acute Chronic cough chronic Urinary tract infection with hematuria acute Bruises easily acute Hematuria noneactive [facility] Work Phone: Evaluation note* Diagnosis Onset Date Resolution Status Bruises easily acute Hematuria noneactive [facility] Work Phone: Evaluation note* Diagnosis Onset Date Resolution Status Dysuria acute [facility] Work Phone: Evaluation note* Diagnosis Onset Date Resolution Status Dysuria acute Dysuria acute Skin tear of left lower leg without complication acute [facility] Work Phone: Evaluation note* Diagnosis Onset Date Resolution Status Bruises easily acute Cough acute Skin tear of left lower leg without complication acute Laceration of left index finger acute Impacted cerumen, left ear a cute Laceration of left index finger acute [facility] Work Phone: Evaluation note* Diagnosis Onset Date Resolution Status Laceration of left index finger acute Impacted cerumen, left ear a cute Laceration of left index finger acute Frequent urination acute Irritation of left ear acute UTI (urinary tract infection) acute [facility] Work Phone: Evaluation note* Diagnosis Onset Date Resolution Status Frequent urination acute Irritation of left ear acute UTI (urinary tract infection) acute Dysuria acute UTI (urinary tract infection) acute [facility] Work Phone: History and physical note Author Dr. Meadows [facility] August 02, 2022 2:39am Note Date/Time August 02, 2022 2:0 2am [facility] Medical Records Department [address] [place] [id number] History & Physical Exam 08/02/22 0157 MR#: [id number] Acct: [id number] Name: VALERY DEVINE Rep #:[id number] : 1950 72 From: Saray Meadows MD PCP: Dr. Bean Bettencourt, DO Status:AD M SEAN Location: [place] [address] HPI - General General Date of Admission: 08/02/22 Date of Service: 08/02/22 Chief Complaint: L facial and L hand paresthesias, possibly altered speech. HPI Narrative The patient is a 72 y/o F w/ PMHx: Chronic migraines R sided with visual R eye changes, Obesity, Anxiety and Depression, HLD, GERD, Chronic lumbar back pain with radiculopathy/sciatica, Hx Lung Cancer s/p lobectomy considered in remission, Former tobacco use who presents to the [facility] ED on 08/02/22 with historyof onset strokelike symptoms reporting that she had been sitting watching television and fell asleep awakening at approximately 10:30 PM reporting that her face felt odd on the left side and was tingling in her left hand was also tingling specifically more so in the left fifth digit at which point she felt itwas likely secondary to sleeping wrong and it would go away however despite waiting it continued prompting her to call her son at about 1115 prompting him to go over the house and coin machine mechanic with concerns that she had garbled speech which resolved but given ongoing paresthesias prompted ED evaluation for possible stroke. Did report that when this occurred she became extremely stressed and anxious and did feel palpitations but this subsided when she calmeddown and she had no related chest discomfort or dyspnea with this. Of note patient does states she has had similar episodes in the past but never got evaluated during those episodes because it would eventually go away. She deniesany prior history of stroke. While in the emergency room upon ED evaluation shedoes have resolution of the prior reported facial and left hand paresthesias. Given this improvement initial NIH stroke scale 1 for facial palsy as patient isunable to blow her left cheek up but she is able to smile and demonstrates symmetrical teeth on each side with no flattening of any nasolabial fold demonstrated. Patient denies any recent migraines and notes during this entire event she had no headaches or visual changes. Of note patient had recent internal medicine visit 08/01/2022 secondary concerns of easy bruising/bleeding reporting that she had been taking meloxicam and ibuprofen with UTI diagnosis the month prior with urine noted to have microcytic anemia with prior cystoscopywhich was unremarkable of note. Urinalysis at that visit with specific gravity elevated 1.025, protein 15, occult blood negative, nitrite negative, leukocyte Estrace negative with no obvious evidence of UTI. Work-up in the ED included T98.3, heart rate 75, BP 144/83, respiratory rate 16, 98% on room air, CBC with WC 6.1, hemoglobin 12.4, platelet 206 without marked shift, coags unremarkable, BMP with chloride 110, BUN/creatinine 20/0.66, glucose 121, troponin 74, CT headwith no acute intracranial hemorrhage or territorial infarct, CTA head and neck with no flow-limiting stenosis, aneurysm or dissection in the head or neck however there is a nonspecific 18 mm soft tissue nodule in the left superior mediastinum possibly representing lymphadenopathy however incompletely characterized, left thyroid nodularity also measuring up to 14 mm with recommendation of nonemergent thyroid ultrasound, CXR with noted nonspecific fullness right hilar/suprahilar region as well as right superior mediastinum with otherwise no acute cardiopulmonary findings, EKG with SR without acute evidence of ischemia. In the ED patient administered FS ASA. [facility] Medical History (Updated 08/02/22 @ 02:[address] Saray Meadows MD) Anxiety Bruises easily GERD (gastroesophageal reflux disease) History of shingles HLD (hyperlipidemia) Lumbar radiculopathy Lung cancer Sciatica Vitamin D deficiency Home Medications acetaminophen 500 mg tablet 1,000 mg PO Q8 #90 tabs 08/10/19 [Rx Last Taken Unknown] atorvastatin 10 mg tablet 10 mg PO QHS 06/13/20 [History Last Taken Unknown] diclofenac sodium 1 % topical gel 4 g topical .QID PRN Pain Or Fever #100 grams 07/27/21 [Rx Last Taken Unknown] ibuprofen 800 mg tablet 800 mg PO TID PRN Pain Or Fever #30 tabs 07/27/21 [Rx Last Taken Unknown] ergocalciferol (vitamin D2) 1,250 mcg (50,000 unit) capsule 50,000 unit PO QWEEKsupplement #20 caps 01/23/22 [Rx Last Taken Unknown] albuterol sulfate 90 mcg/actuation aerosol inhaler (ProAir HFA) 1 - 2 puff inhalation Q6H PRN shortness of breath or wheezing #8.5 grams 03/10/22 [Rx Last Taken Unknown] esomeprazole magnesium 40 mg capsule,delayed release 40 mg PO QDAY gerd #90 caps07/10/22 [Rx Last Taken Unknown] tramadol 50 mg tablet 50 mg PO PRN PRN pain 08/02/22 [History Last Taken Unknown] Allergy/AdvReac Type Severity Reaction Status Date / Time Sulfa (Sulfonamide Allergy Intermediate sores in Verified 08/02/22 00:15 Antibiotics) mouth amoxicillin [From Amoxil] AdvReac Intermediate yeast & Verified 08/02/22 00:15 bladder infections Family History (Updated 08/02/22 @ 02:[address] Saray Meadows MD) Aunt Colon cancer Diabetes Mother Thyroid disorder Heart disease Son Hypercholesteremia Grandmother Heart disease Father COPD (chronic obstructive pulmonary disease) Surgical History History of back surgery History of bilateral cataract extraction history of bunionectomy History of section History of colonoscopy History of cystoscopy History of esophagogastroduodenoscopy (EGD) History of lateral meniscus repair of left knee History of lobectomy of lung History of total left knee replacement Social History Smoking Status: Former smoker quit date: 05/26/08 Tobacco: How many years used: 40 alcohol intake: current alcohol intake frequency: holidays/special occasions only substance use type: does not use ROS ROS Narrative Admission Review of Systems: CONSTITUTIONAL: No weight loss, fever, chills, +weakness or fatigue. HEENT: + Left facial paresthesias. Eyes: No visual loss, blurred vision, double vision or yellow sclerae. Ears, Nose, Throat: No hearing loss, sneezing, congestion, runny nose or sore throat. SKIN: No rash or itching, lesions, wounds. CARDIOVASCULAR: + Occasional palpitations, No chest pain, chest pressure or chest discomfort, edema, orthopnea, syncopal events. RESPIRATORY: No shortness of breath, cough or sputum, wheezing, hemoptysis. GASTROINTESTINAL: No anorexia, nausea, vomiting or diarrhea, abdominal pain, melena, BRBPR. GENITOURINARY: No dysuria, frequency, urgency or retention. NEUROLOGICAL: + Left facial and left hand paresthesias. No headache, dizziness,syncope, paralysis, ataxia, focal weakness, change in bowel or bladder control, seizure. MUSCULOSKELETAL: + muscle, back pain, joint pain or stiffness. HEMATOLOGIC: No anemia, bleeding or bruising. LYMPHATICS: No enlarged nodes. No history of splenectomy. PSYCHIATRIC: + history of depression or anxiety. ENDOCRINOLOGIC: No reports of sweating, cold or heat intolerance. No polyuria orpolydipsia. ALLERGIES: No history of asthma, hives, eczema or rhinitis. Vital Signs Vital Signs Vital Signs: 08/02/22 00:12 08/02/22 01:30 08/02/22 01:30 Temperature 98.3 F Temperature Source Temporal Pulse Rate 75 66 Respiratory Rate 16 12 Blood Pressure 144/83 H 148/85 H Blood Pressure Mean 103 106 Pulse Ox 98 100 Oxygen Delivery Method Room Air Room Air Room Air 08/02/22 01:30 Temperature Temperature Source Pulse Rate 66 Respiratory Rate 12 Blood Pressure 148/85 H Blood Pressure Mean 106 Pulse Ox 100 Oxygen Delivery Method Room Air Weight Weight: 170 lb 9 oz Body Mass Index (BMI) 29.2 Physical Exam Narrative Physical Examination: General: Awake, alert, oriented x 3 and cooperative, seated upright in the ED bed, no acute distress, anxious. Skin: Normal color, normal turgor, no icterus, no cyanosis. HEENT: AT/NC, EOMI, PERRLA, mildly dry MM, no carotid bruits or JVD noted, ongoing left-sided subjective facial paresthesias. Lungs: Diminished, > bases, moderate effort, no distress, no rales, ronchi or wheezing. Heart: Regular rate and rhythm; no gallop, rub audible. Abdomen: Soft, overweight, NTTP, ND, normal BS, no HSM. Extremities: No cyanosis, clubbing, or edema, resolved prior left upper extremity primarily fifth digit paresthesias. Neurological: Patient awake, alert, oriented as noted, cognitive function intact; pupils equally reactive to light and accommodation, cranial nerves grossly normal except difficulty filling left cheek, moving all 4 extremities, no focal deficits, strength preserved, finger-nose and [id number] appropriate, equivocal Babinski, resolved prior left facial as well left fifth digit paresthesia. Psychiatric: Affect appears fatigued and anxious especially with discussion of planned CT chest and CXR findings, no acute evidence of depressive feelings. Results Lab / Micro Data Result Diagrams: 08/02/22 00:58 08/02/22 00:58 Labs: Laboratory Results - last 24 hr 08/02/22 00:57: POC Glucose 115 H 08/02/22 00:58: WBC 6.1, RBC 4.13 L, Hgb 12.4, Hct 38.4, MCV 93.0, MCH 30.0, MCHC 32.3, RDW Std Deviation 48.1 H, RDW Coeff of Richard 14.1, Plt Count 206, MPV 11.1, Immature Gran % (Auto) 0.200, Neut % (Auto) 54.0, Lymph % (Auto) 35.8, Rock % (Auto) 8.0, Eos % (Auto) 1.3, Baso % (Auto) 0.7, Absolute Neuts (auto) 3.3, Absolute Lymphs (auto) 2.18, Nucleated RBC % 0 08/02/22 00:58: PT 12.8, INR 1.0, APTT 29.0 08/02/22 00:58: Sodium 143, Potassium 3.7, Chloride 110 H, Carbon Dioxide 28.0, Anion Gap 5, BUN 20 H, Creatinine 0.66, Estim Creat Clear Calc 44.56, Est GFR (MDRD) Af Amer 113, Est GFR (MDRD) Non-Af 93, BUN/Creatinine Ratio 30.2 H, Glucose 121 H, Calcium 8.7, Troponin I High Sens 74 H Radiology Impression Brain CT 08/02/22 00:50 IMPRESSION: No intracranial hemorrhage or acute territorial infarction. Findings discussed with Dr. Jewel Puente via phone at 10:26 PM PST on 08/01/2022. N.B. : The above Results were Read Back by Kahlil Stinson MD to Jewel Puente DO, and understanding confirmed on 08/02/2022 01:27:30 (ET). Electronically Signed: Kahlil Stinson MD at 1:29 EST , ADDENDUM: 08/02/22 0136 IMPRESSION: No intracranial hemorrhage or acute territorial infarction. Findings discussed with Dr. Jewel Puente via phone at 10:26 PM PST on 08/01/2022. N.B. : The above Results were Read Back by Kahlil Stinson MD to Jewel Puente DO, and understanding confirmed on 08/02/2022 01:27:30 (ET). Electronically Signed: Kahlil Stinson MD at 1:29 EST , Chest X-Ray 08/02/22 00:50 IMPRESSION: 1. No acute cardiopulmonary disease. 2. Nonspecific fullness of the right hilar/suprahilar region region and right superior mediastinum. Follow-up advised. Electronically Signed: Ruddy Cisse MD at 1:37 EST , Head/Neck CTA 08/02/22 00:53 IMPRESSION: 1. No flow-limiting stenosis, aneurysm or dissection in the head and neck. 2. Nonspecific 18 mm soft tissue nodule in the left superior mediastinum, may represent lymphadenopathy however incompletely characterized. CT chest recommended to further characterize. 3. Left thyroid nodularity measuring up to 14 mm, should be further characterized with nonemergent thyroid ultrasound. Findings reported to Dr. Jewel Puente via phone at 10:39 PM PST on 08/01/2022. N.B. : The above Results were Read Back by Kahlil Stinson MD to Jewel Puente DO, and understanding confirmed on 08/02/2022 01:40:13 (ET). Electronically Signed: Kahlil Stinson MD at 1:44 EST , ADDENDUM: 08/02/22 0151 IMPRESSION: 1. No flow-limiting stenosis, aneurysm or dissection in the head and neck. 2. Nonspecific 18 mm soft tissue nodule in the left superior mediastinum, may represent lymphadenopathy however incompletely characterized. CT chest recommended to further characterize. 3. Left thyroid nodularity measuring up to 14 mm, should be further characterized with nonemergent thyroid ultrasound. Findings reported to Dr. Jewel Puente via phone at 10:39 PM PST on 08/01/2022. N.B. : The above Results were Read Back by Kahlil Stinson MD to Jewel Puente DO, and understanding confirmed on 08/02/2022 01:40:13 (ET). Electronically Signed: Kahlil Stinson MD at 1:44 EST , Assessment & Plan Assessment/Plan (1) TIA (transient ischemic attack): PLAN: Plan The patient is a 72 y/o F w/ PMHx: Chronic migraines R sided with visual R eye changes, Obesity, Anxiety and Depression, HLD, GERD, Chronic lumbar back pain with radiculopathy/sciatica, Hx Lung Cancer s/p lobectomy considered in remission, Former tobacco use who presents to the [facility] ED on 08/02/22 with historyof onset strokelike symptoms reporting that she had been sitting watching television and fell asleep awakening at approximately 10:30 PM reporting that her face felt odd on the left side and was tingling in her left hand was also tingling specifically more so in the left fifth digit at which point she felt itwas likely secondary to sleeping wrong and it would go away however despite waiting it continued prompting her to call her son at about 1115 prompting him to go over the house and coin machine mechanic with concerns that she had garbled speech which resolved but given ongoing paresthesias prompted ED evaluation for possible stroke. #1. Left facial and left hand paresthesias, possibly altered speech concerning for CVA/TIA versus complex migraines with history of migraines (less suspected given no headache with event) complicated by incidentally noted #2, #3: Will admit to PCU, will obtain MRI Brain, ECHO, PT/OT/Speech/Nutrition evaluation perprotocol. Will allow permissive HTN, will initiate on aspirin therapy, continue home statin w/ AM FLP, fall precautions, TSH/magnesium/hemoglobin A1c requested.Will have low dose PRN ativan for anxiety with MRI per patient preference. #2. Indeterminate cardiac enzyme: EKG with SR without acute evidence of ischemia, CXR with noted nonspecific fullness right hilar/suprahilar region as well as right superior mediastinum with otherwise no acute cardiopulmonary findings, initial trop 74. Will place on a monitored bed to assure no acute myocardial infarction with serial cardiac enzymes and EKGs. Magnesium level requested. FLP in AM. ASA. Patient with no complaints of chest discomfort. Echocardiogram requested as noted #1. Pending further evaluation and work-up #1May need to consider further cardiac evaluation. #3. History of lung cancer with incidentally noted Nonspecific Fullness R Hilar/Suprahilar region and R superior mediastium: Unclear specific type of cancer, status post lobectomy, had been considered in remission, CXR with noted nonspecific fullness right hilar/suprahilar region as well as right superior mediastinum with otherwise no acute cardiopulmonary findings as well as CTA headand neck with comment about a nonspecific 18 mm soft tissue nodule in the left superior mediastinum, CT Chest will be obtained once able to utilize contrast again given recent CTA head and neck. #4. Incidental left thyroid nodularity: CTA head and neck with noted left thyroid nodularity measuring up to 14 mm, will obtain TSH and free T4, will neednonemergent thyroid ultrasound outpatient unless notably abnormal function studies. #5. Hyperglycemia, mild: Glucose 121, no diabetic history, hemoglobin A1c requested given acute presentation as noted #1. #6. Mildly elevated BP above goal with no prior history hypertension: BP upon ED presentation only minimally elevated, no prior hypertensive history per report, will continue to closely monitor, as needed agents as needed per stroke protocol #7. Chronic lumbar back pain with radiculopathy/sciatica: Encourage frequent positional changes, fall precautions as noted. #8. Anxiety and depression: Not on any chronic regimen per review of current list, encourage continued outpatient follow-up and counseling as needed. #9. Hyperlipidemia: Continue home statin regimen. AM FLP. #10. GERD: We will continue patient home PPI. #11. Former tobacco use: Encourage continued tobacco cessation. #12. Obesity: Weight loss and lifestyle changes encouraged. #13. DVT prophylaxis: Lovenox. #14. CODE status: Patient REG is her two sons and living will is currently inplace. Discussed CODE status at length including difference between FULL code, DNR-CCA and DNR-CC status. Following discussions about the differences in these status, requested Full Code status. Advanced Care Planning Face to Face Time:16 minutes. Admission Evaluation Time spent evaluating chart, patient history, patient evaluation, care planning and discussion with specialists: 75 minutes. Charges/Coding Visit Charges Inpatient E&M: 50778 Init Hosp L3 Procedures Hospitalists Procedures: 14564 Advncd Care Plan 30 Min 08/02/22 0239 <Electronically signed by Saray Meadows MD> Cosigner Signature (if applicable): CC: Dr. Saray Meadows MD; Dr. Bean Bettencourt, DO~ Signed [facility] Work Phone: Hospital course Narrative No data available for this section [facility] Hospital Discharge instructions No data available for this section [facility] Hospital Discharge instructions Additional Instructions Please list nitrofurantoin/Macrobid as an allergy from now on. It would typically take 3 to 5 days for the drug to metabolize out of your system and therefore take the prescribed allergic reaction medications as directed. In order to resolve your UTI please take the Keflex as directed as well and return to the ER should you have any [facility] Work Phone: Progress note No data available for this section [facility] Reason for referral (narrative)No reason for referral information availableWOhio State Health System Work Phone: Summary Purpose Family History No Family History Records Found Relationship Condition Age at Onset Recorded Date/T yessi aunt Malignant neoplasm of colon Unknown Diabetes mellitus Unknown mother Disorder of thyroid Unknown Cardiac disease Unknown son Hypercholesterolemia Unknown grandmother Cardiac disease Unknown Relationship Condition Age at Onset Recorded Date/T yessi aunt Malignant neoplasm of colon Unknown Diabetes mellitus Unknown mother Disorder of thyroid Unknown Cardiac disease Unknown son Hypercholesterolemia Unknown grandmother Cardiac disease Unknown father Chronic obstructive pulmonary disease Unk nown Advance Directives No Advanced Directives Records Found Advance Directive Response Recorded Date/ Time Living Will Yes September 18, 2020 4:40pm Power of Wound Care Coordinator Yes September 18 4:40pm Advance Directive Response Recorded Date/ Time Living Will No April 27 9:25pm Power of Wound Care Coordinator No April 27, 2022 9:25pm Advance Directive Response Recorded Date/ Time Name of Medical Power of Wound Care Coordinator Lima Devine August 02, 2022 12:19am Living Will Yes August 02, 2022 12:19am Power of Wound Care Coordinator Yes August 02 12:19am Advance Directive Response Recorded Date/ Time Name of Medical Power of Wound Care Coordinator Lima Milnertz August 02, 2022 12:19am Living Will Yes August 02, 2022 3:04am Power of Wound Care Coordinator No August 02 3:04am Advance Directive Response Recorded Date/ Time Name of Medical Power of Wound Care Coordinator Lima Devine August 02, 2022 1:19am Living Will Yes August 02, 2022 4:04am Power of Wound Care Coordinator No August 02 4:04am Advance Directive Response Recorded Date/ Time Name of Medical Power of Wound Care Coordinator Lima Sybil August 02, 2022 1:19am Name of Medical Power of Wound Care Coordinator Bryn August 21, 2022 7:09pm Living Will Yes August 21, 2022 7:09pm Power of Wound Care Coordinator Yes August 21 7:09pm Advance Directive Response Recorded Date/ Time Name of Medical Power of Wound Care Coordinator Viniciusricardo Sybil August 02, 2022 1:19am Name of Medical Power of Wound Care Coordinator Bryn August 21, 2022 7:09pm Name of Medical Power of Wound Care Coordinator Bryn Devine October 30, 2022 10:49pm Living Will Yes October 30, 2022 1 0:49pm Power of Wound Care Coordinator Yes October 30, 2022 10:49pm Advance Directive Response Recorded Date/ Time Name of Medical Power of Wound Care Coordinator Bryn August 21, 2022 7:09pm Name of Medical Power of Wound Care Coordinator Bryn Devine October 30, 2022 10:49pm Living Will Yes October 30, 2022 1 0:49pm Power of Wound Care Coordinator Yes October 30, 2022 10:49pm Advance Directive Response Recorded Date/ Time Name of Medical Power of Wound Care Coordinator Bryn Devine October 30, 2022 10:49pm Living Will Yes October 30, 2022 1 0:49pm Power of Wound Care Coordinator Yes October 30, 2022 10:49pm Advance Directive Response Recorded Date/ Time Living Will Yes May 08, 2 023 1:22pm Power of Wound Care Coordinator Yes May 08, 2023 1:22pm Advance Directive Response Recorded Date/ Time Living Will Yes May 08, 2 023 2:22pm Power of Wound Care Coordinator Yes May 08, 2023 2:22pm Advance Directive Response Recorded Date/ Time Living Will No August 22, 2024 8:46am Do you have a Healthcare Power of Wound Care Coordinator? No August 22, 2024 8:46am Chief Complaint and Reason for Visit Chief Complaint EXPOSED/COVID SCREENING CONCERN FOR BLADDER INFECTION Spinal stenosis, cervical region Reason for Visit Exposure to COVID-19 virus UTI (urinary tract infection) Chief Complaint COUGH FOR LAST COUPL E MONTHS XRAY Cough/PCR TEST Unilateral primary osteoarthritis, right knee rt knee pain Reason for Visit Chronic cough COVID-19 Chief Complaint Cough/PCR TEST Unilateral primary osteoarthritis, right knee rt knee pain COUGH/PIZANO/POST NASAL DRIP 2ND VISIT/CONGESTION/COUGH/FEELING SHORT OF BREATH Now clinic CONCERN FOR UTI Reason for Visit COVID-19 Influenza due to influenza virus, type A, human Bronchitis Chronic cough Urinary tract infection with hematuria Chief Complaint Unilateral primary o steoarthritis, right knee rt knee pain COUGH/PIZANO/POST NASAL DRIP 2ND VISIT/CONGESTION/COUGH/FEELING SHORT OF BREATH Now clinic CONCERN FOR UTI CONCERNS ABOUT BLOOD TIA/CVA, INDETERM TROP Reason for Visit Influenza due to inf luenza virus, type A, human Bronchitis Chronic cough Urinary tract infection with hematuria Bruises easily Hematuria TIA (transient ischemic attack) Chief Complaint Unilateral primary o steoarthritis, right knee rt knee pain COUGH/PIZANO/POST NASAL DRIP 2ND VISIT/CONGESTION/COUGH/FEELING SHORT OF BREATH Now clinic CONCERN FOR UTI CONCERNS ABOUT BLOOD TIA/CVA, INDETERM TROP RIGHT LOWER EXT SWELLING PAIN ABNORMAL CHEST XRAY Reason for Visit Influenza due to inf luenza virus, type A, human Bronchitis Chronic cough Urinary tract infection with hematuria Bruises easily Hematuria TIA (transient ischemic attack) Chief Complaint Unilateral primary o steoarthritis, right knee rt knee pain COUGH/PIZANO/POST NASAL DRIP 2ND VISIT/CONGESTION/COUGH/FEELING SHORT OF BREATH Now clinic CONCERN FOR UTI CONCERNS ABOUT BLOOD TIA/CVA, INDETERM TROP RIGHT LOWER EXT SWELLING PAIN ABNORMAL CHEST XRAY Reason for Visit Influenza due to inf luenza virus, type A, human Bronchitis Chronic cough Urinary tract infection with hematuria Bruises easily Hematuria Chief Complaint Unilateral primary o steoarthritis, right knee rt knee pain COUGH/PIZANO/POST NASAL DRIP 2ND VISIT/CONGESTION/COUGH/FEELING SHORT OF BREATH Now clinic CONCERN FOR UTI CONCERNS ABOUT BLOOD TIA/CVA, INDETERM TROP RIGHT LOWER EXT SWELLING PAIN ABNORMAL CHEST XRAY Metatarsalgia, right foot CONCERN FOR UTI ALLERGIC REACTION Reason for Visit Influenza due to inf luenza virus, type A, human Bronchitis Chronic cough Urinary tract infection with hematuria Bruises easily Hematuria Chief Complaint COUGH/PIZANO/POST NASAL DRIP 2ND VISIT/CONGESTION/COUGH/FEELING SHORT OF BREATH Now clinic CONCERN FOR UTI CONCERNS ABOUT BLOOD TIA/CVA, INDETERM TROP RIGHT LOWER EXT SWELLING PAIN ABNORMAL CHEST XRAY Metatarsalgia, right foot CONCERN FOR UTI ALLERGIC REACTION Reason for Visit Influenza due to inf luenza virus, type A, human Bronchitis Chronic cough Urinary tract infection with hematuria Bruises easily Hematuria Chief Complaint COUGH/PIZANO/POST NASAL DRIP 2ND VISIT/CONGESTION/COUGH/FEELING SHORT OF BREATH Now clinic CONCERN FOR UTI CONCERNS ABOUT BLOOD TIA/CVA, INDETERM TROP RIGHT LOWER EXT SWELLING PAIN ABNORMAL CHEST XRAY Metatarsalgia, right foot CONCERN FOR UTI ALLERGIC REACTION . . Reason for Visit Influenza due to inf luenza virus, type A, human Bronchitis Chronic cough Urinary tract infection with hematuria Bruises easily Hematuria Chief Complaint CONCERNS ABOUT BLOOD TIA/CVA, INDETERM TROP RIGHT LOWER EXT SWELLING PAIN ABNORMAL CHEST XRAY Metatarsalgia, right foot CONCERN FOR UTI ALLERGIC REACTION . . ALLERGIC Reason for Visit Bruises easily Hematuria Chief Complaint RIGHT LOWER EXT SWEL LING PAIN ABNORMAL CHEST XRAY Metatarsalgia, right foot CONCERN FOR UTI ALLERGIC REACTION . . ALLERGIC CONCERN FOR UTI Reason for Visit Dysuria Chief Complaint . . ALLERGIC CONCERN FOR UTI POSSIBLE BLADDER INFECTION LFT LOWER LEG INJURY Reason for Visit Dysuria Dysuria Skin tear of left lower leg without complication Chief Complaint XRAY cramps in abdomin CUT ON FINGER SCREENING 2ND VISIT/INCREASED PAIN Reason for Visit Bruises easily Cough Skin tear of left lower leg without complication Laceration of left index finger Impacted cerumen, left ear Laceration of left index finger Chief Complaint CUT ON FINGER SCREENING 2ND VISIT/INCREASED PAIN LEFT EAR ISSUES Urinary tract infection Reason for Visit Laceration of left i ndex finger Impacted cerumen, left ear Laceration of left index finger Frequent urination Irritation of left ear UTI (urinary tract infection) Chief Complaint LEFT EAR ISSUES Urinary tract infection Urinary tract infection Reason for Visit Frequent urination Irritation of left ear UTI (urinary tract infection) Dysuria UTI (urinary tract infection) Chief Complaint LEFT EAR ISSUES Urinary tract infection Urinary tract infection Occlusion and stenosis of bilateral carotid arteri Reason for Visit Frequent urination Irritation of left ear UTI (urinary tract infection) Dysuria UTI (urinary tract infection) Chief Complaint Admit Date CONCERN FOR UTI April 28, 2024 9 :20am FELL SWOLLEN EYE June 16, 2024 1 2:53pm XRAY June 16, 2024 1 :49pm DYSPNEA DELROY July 14, 2024 7:48am FAMILY HX OF CORANARY DISEASSE July 14, 2024 7:49am SORE THROAT, COUGH, HEADACHE, CHILLS [facility] 2024 7:34am 2ND VISIT/COUGH/DELROY August 04, 2024 6: 27am ACUTE COUGH August 06, 2024 2:2 8pm XRAY August 06, 2024 3:3 0pm CONCERN FOR INFECTION ON LEG August 12, 2024 1:38pm n/t August 22, 2024 8:4 6am Reason for Visit Admit Date Contusion of forehead June 16, 2024 12:53pm Skin pigmentation disorder June 16, 2024 12:53pm Cough August 06, 2024 2:2 8pm Superficial abrasion August 06, 2024 2: 28pm Staph skin infection August 12, 2024 1: 38pm Superficial abrasion August 12, 2024 1: 38pm Chief Complaint Admit Date DYSPNEA DELROY July 14, 2024 7:48am FAMILY HX OF CORANARY DISEASSE July 14, 2024 7:49am SORE THROAT, COUGH, HEADACHE, CHILLS [facility] 2024 7:34am 2ND VISIT/COUGH/DELROY August 04, 2024 6: 27am ACUTE COUGH August 06, 2024 2:2 8pm XRAY August 06, 2024 3:3 0pm CONCERN FOR INFECTION ON LEG August 12, 2024 1:38pm n/t August 22, 2024 8:4 6am acute wch fu August 27, 2024 7:24 am RIGHT KNEE September 10, 2024 9:2 3am SCREENING September 10, 2024 1:1 1pm RIGHT KNEE October 20, 2024 11:11 am Reason for Visit Admit Date Cough August 06, 2024 2:2 8pm Superficial abrasion August 06, 2024 2: 28pm Staph skin infection August 12, 2024 1: 38pm Superficial abrasion August 12, 2024 1: 38pm Staph skin infection August 27, 2024 7:2 4am Facial paresthesia August 27, 2024 7:24 am Right knee DJD September 10, 2024 9:2 3am Right knee DJD October 20, 2024 11:11 am Chief Complaint Admit Date DYSPNEA DELROY July 14, 2024 7:48am FAMILY HX OF CORANARY DISEASSE July 14, 2024 7:49am SORE THROAT, COUGH, HEADACHE, CHILLS [facility] 2024 7:34am 2ND VISIT/COUGH/DELROY August 04, 2024 6: 27am ACUTE COUGH August 06, 2024 2:2 8pm XRAY August 06, 2024 3:3 0pm CONCERN FOR INFECTION ON LEG August 12, 2024 1:38pm n/t August 22, 2024 8:4 6am acute wch fu August 27, 2024 7:24 am RIGHT KNEE September 10, 2024 9:2 3am SCREENING September 10, 2024 1:1 1pm RIGHT KNEE October 20, 2024 11:11 am RIGHT KNEE October 27, 2024 10:48 am sore throat November 04, 2024 8:19 am Reason for Visit Admit Date Cough August 06, 2024 2:2 8pm Superficial abrasion August 06, 2024 2: 28pm Staph skin infection August 12, 2024 1: 38pm Superficial abrasion August 12, 2024 1: 38pm Staph skin infection August 27, 2024 7:2 4am Facial paresthesia August 27, 2024 7:24 am Right knee DJD September 10, 2024 9:2 3am Right knee DJD October 20, 2024 11:11 am Right knee DJD October 27, 2024 10:48 am Chief Complaint Admit Date DYSPNEA DELROY July 14, 2024 7:48am FAMILY HX OF CORANARY DISEASSE July 14, 2024 7:49am SORE THROAT, COUGH, HEADACHE, CHILLS [facility] 2024 7:34am 2ND VISIT/COUGH/DELROY August 04, 2024 6: 27am ACUTE COUGH August 06, 2024 2:2 8pm XRAY August 06, 2024 3:3 0pm CONCERN FOR INFECTION ON LEG August 12, 2024 1:38pm n/t August 22, 2024 8:4 6am acute wch fu August 27, 2024 7:24 am RIGHT KNEE September 10, 2024 9:2 3am SCREENING September 10, 2024 1:1 1pm RIGHT KNEE October 20, 2024 11:11 am RIGHT KNEE October 27, 2024 10:48 am sore throat November 04, 2024 8:19 am RIGHT KNEE November 05, 2024 11:2 7am Reason for Visit Admit Date Cough August 06, 2024 2:2 8pm Superficial abrasion August 06, 2024 2: 28pm Staph skin infection August 12, 2024 1: 38pm Superficial abrasion August 12, 2024 1: 38pm Staph skin infection August 27, 2024 7:2 4am Facial paresthesia August 27, 2024 7:24 am Right knee DJD September 10, 2024 9:2 3am Right knee DJD October 20, 2024 11:11 am Right knee DJD October 27, 2024 10:48 am Acute pharyngitis November 04, 2024 8:19 am Right knee DJD November 05, 2024 11:2 7am Chief Complaint Admit Date DYSPNEA DELROY July 14, 2024 7:48am FAMILY HX OF CORANARY DISEASSE July 14, 2024 7:49am SORE THROAT, COUGH, HEADACHE, CHILLS [facility] 2024 7:34am 2ND VISIT/COUGH/DELROY August 04, 2024 6: 27am ACUTE COUGH August 06, 2024 2:2 8pm XRAY August 06, 2024 3:3 0pm CONCERN FOR INFECTION ON LEG August 12, 2024 1:38pm n/t August 22, 2024 8:4 6am acute wch fu August 27, 2024 7:24 am RIGHT KNEE September 10, 2024 9:2 3am SCREENING September 10, 2024 1:1 1pm RIGHT KNEE October 20, 2024 11:11 am RIGHT KNEE October 27, 2024 10:48 am sore throat November 04, 2024 8:19 am RIGHT KNEE November 05, 2024 11:2 7am SPONTANEOUS ECCHYMOSES November 08, 2024 3 :09pm Reason for Visit Admit Date Cough August 06, 2024 2:2 8pm Superficial abrasion August 06, 2024 2: 28pm Staph skin infection August 12, 2024 1: 38pm Superficial abrasion August 12, 2024 1: 38pm Staph skin infection August 27, 2024 7:2 4am Facial paresthesia August 27, 2024 7:24 am Right knee DJD September 10, 2024 9:2 3am Right knee DJD October 20, 2024 11:11 am Right knee DJD October 27, 2024 10:48 am Acute pharyngitis November 04, 2024 8:19 am Right knee DJD November 05, 2024 11:2 7am Abnormal bruising November 08, 2024 3:09 pm Chief Complaint Admit Date DYSPNEA DELROY July 14, 2024 7:48am FAMILY HX OF CORANARY DISEASSE July 14, 2024 7:49am SORE THROAT, COUGH, HEADACHE, CHILLS [facility] 2024 7:34am 2ND VISIT/COUGH/DELROY August 04, 2024 6: 27am ACUTE COUGH August 06, 2024 2:2 8pm XRAY August 06, 2024 3:3 0pm CONCERN FOR INFECTION ON LEG August 12, 2024 1:38pm n/t August 22, 2024 8:4 6am acute wch fu August 27, 2024 7:24 am RIGHT KNEE September 10, 2024 9:2 3am SCREENING September 10, 2024 1:1 1pm RIGHT KNEE October 20, 2024 11:11 am RIGHT KNEE October 27, 2024 10:48 am Chief Complaint Admit Date SORE THROAT, COUGH, HEADACHE, CHILLS [facility] 2024 7:34am 2ND VISIT/COUGH/DELROY August 04, 2024 6: 27am ACUTE COUGH August 06, 2024 2:2 8pm XRAY August 06, 2024 3:3 0pm CONCERN FOR INFECTION ON LEG August 12, 2024 1:38pm n/t August 22, 2024 8:4 6am acute wch fu August 27, 2024 7:24 am RIGHT KNEE September 10, 2024 9:2 3am SCREENING September 10, 2024 1:1 1pm RIGHT KNEE October 20, 2024 11:11 am RIGHT KNEE October 27, 2024 10:48 am sore throat November 04, 2024 8:19 am RIGHT KNEE November 05, 2024 11:2 7am SPONTANEOUS ECCHYMOSES November 08, 2024 3 :09pm 1 WK - REVIEW LABS November 15, 2024 11:5 2am Reason for Visit Admit Date Cough August 06, 2024 2:2 8pm Superficial abrasion August 06, 2024 2: 28pm Staph skin infection August 12, 2024 1: 38pm Superficial abrasion August 12, 2024 1: 38pm Staph skin infection August 27, 2024 7:2 4am Facial paresthesia August 27, 2024 7:24 am Right knee DJD September 10, 2024 9:2 3am Right knee DJD October 20, 2024 11:11 am Right knee DJD October 27, 2024 10:48 am Acute pharyngitis November 04, 2024 8:19 am Right knee DJD November 05, 2024 11:2 7am Abnormal bruising November 08, 2024 3:09 pm Abnormal bruising November 15, 2024 11:5 2am Chief Complaint Admit Date 2ND VISIT/COUGH/DELROY August 04, 2024 6: 27am ACUTE COUGH August 06, 2024 2:2 8pm XRAY August 06, 2024 3:3 0pm CONCERN FOR INFECTION ON LEG August 12, 2024 1:38pm n/t August 22, 2024 8:4 6am acute wch fu August 27, 2024 7:24 am RIGHT KNEE September 10, 2024 9:2 3am SCREENING September 10, 2024 1:1 1pm RIGHT KNEE October 20, 2024 11:11 am RIGHT KNEE October 27, 2024 10:48 am sore throat November 04, 2024 8:19 am RIGHT KNEE November 05, 2024 11:2 7am SPONTANEOUS ECCHYMOSES November 08, 2024 3 :09pm 1 WK - REVIEW LABS November 15, 2024 11:5 2am SORE THROAT December 01, 2024 10:39 am Chief Complaint Admit Date CONCERN FOR INFECTION ON LEG August 12, 2024 1:38pm n/t August 22, 2024 8:4 6am acute wch fu August 27, 2024 7:24 am RIGHT KNEE September 10, 2024 9:2 3am SCREENING September 10, 2024 1:1 1pm RIGHT KNEE October 20, 2024 11:11 am RIGHT KNEE October 27, 2024 10:48 am sore throat November 04, 2024 8:19 am RIGHT KNEE November 05, 2024 11:2 7am SPONTANEOUS ECCHYMOSES November 08, 2024 3 :09pm 1 WK - REVIEW LABS November 15, 2024 11:5 2am SORE THROAT December 01, 2024 10:39 am R LEG PAIN FROM fallDecember 07, 2024 12: 24pm pain-right knee and tib and fib November 2:04pm Reason for Visit Admit Date Staph skin infection August 12, 2024 1: 38pm Superficial abrasion August 12, 2024 1: 38pm Staph skin infection August 27, 2024 7:2 4am Facial paresthesia August 27, 2024 7:24 am Right knee DJD September 10, 2024 9:2 3am Right knee DJD October 20, 2024 11:11 am Right knee DJD October 27, 2024 10:48 am Acute pharyngitis November 04, 2024 8:19 am Right knee DJD November 05, 2024 11:2 7am Abnormal bruising November 08, 2024 3:09 pm Abnormal bruising November 15, 2024 11:5 2am Chief Complaint Admit Date n/t August 22, 2024 8:4 6am acute wch fu August 27, 2024 7:24 am RIGHT KNEE September 10, 2024 9:2 3am SCREENING September 10, 2024 1:1 1pm RIGHT KNEE October 20, 2024 11:11 am RIGHT KNEE October 27, 2024 10:48 am sore throat November 04, 2024 8:19 am RIGHT KNEE November 05, 2024 11:2 7am SPONTANEOUS ECCHYMOSES November 08, 2024 3 :09pm 1 WK - REVIEW LABS November 15, 2024 11:5 2am SORE THROAT December 01, 2024 10:39 am R LEG PAIN FROM fallDecember 07, 2024 12: 24pm pain-right knee and tib and fib November 2:04pm R L INJURY December 12, 2024 1:06 pm Reason for Visit Admit Date Staph skin infection August 27, 2024 7:2 4am Facial paresthesia August 27, 2024 7:24 am Right knee DJD September 10, 2024 9:2 3am Right knee DJD October 20, 2024 11:11 am Right knee DJD October 27, 2024 10:48 am Acute pharyngitis November 04, 2024 8:19 am Right knee DJD November 05, 2024 11:2 7am Abnormal bruising November 08, 2024 3:09 pm Abnormal bruising November 15, 2024 11:5 2am Edema December 12, 2024 1:06 pm Chief Complaint Admit Date n/t August 22, 2024 8:4 6am acute wch fu August 27, 2024 7:24 am RIGHT KNEE September 10, 2024 9:2 3am SCREENING September 10, 2024 1:1 1pm RIGHT KNEE October 20, 2024 11:11 am RIGHT KNEE October 27, 2024 10:48 am sore throat November 04, 2024 8:19 am RIGHT KNEE November 05, 2024 11:2 7am SPONTANEOUS ECCHYMOSES November 08, 2024 3 :09pm 1 WK - REVIEW LABS November 15, 2024 11:5 2am SORE THROAT December 01, 2024 10:39 am R LEG PAIN FROM FALL December 07, 2024 12: 24pm pain-right knee and tib and fib November 2:04pm R L INJURY December 12, 2024 1:06 pm RIGHT ANKLE December 14, 2024 1:21 pm Reason for Visit Admit Date Staph skin infection August 27, 2024 7:2 4am Facial paresthesia August 27, 2024 7:24 am Right knee DJD September 10, 2024 9:2 3am Right knee DJD October 20, 2024 11:11 am Right knee DJD October 27, 2024 10:48 am Acute pharyngitis November 04, 2024 8:19 am Right knee DJD November 05, 2024 11:2 7am Abnormal bruising November 08, 2024 3:09 pm Abnormal bruising November 15, 2024 11:5 2am Edema December 12, 2024 1:06 pm Contusion of right lower leg December 14, 2024 1:21pm Hematoma December 14, 2024 1:21 pm Osteoarthritis, knee December 14, 2024 1:2 1pm Skin tear of right lower leg without com plication December 14, 2024 1:21pm Chief Complaint Admit Date acute wch fu August 27, 2024 7:24 am RIGHT KNEE September 10, 2024 9:2 3am SCREENING September 10, 2024 1:1 1pm RIGHT KNEE October 20, 2024 11:11 am RIGHT KNEE October 27, 2024 10:48 am sore throat November 04, 2024 8:19 am RIGHT KNEE November 05, 2024 11:2 7am SPONTANEOUS ECCHYMOSES November 08, 2024 3 :09pm 1 WK - REVIEW LABS November 15, 2024 11:5 2am SORE THROAT December 01, 2024 10:39 am R LEG PAIN FROM FALL December 07, 2024 12: 24pm pain-right knee and tib and fib November 2:04pm R L INJURY December 12, 2024 1:06 pm RIGHT ANKLE December 14, 2024 1:21 pm POSSIBLE UTI - RT LEG SWOLLEN AND RED Ju ly 2024 2:52pm Chief Complaint Admit Date RIGHT KNEE October 20, 2024 11:11 am RIGHT KNEE October 27, 2024 10:48 am sore throat November 04, 2024 8:19 am RIGHT KNEE November 05, 2024 11:2 7am SPONTANEOUS ECCHYMOSES November 08, 2024 3 :09pm 1 WK - REVIEW LABS November 15, 2024 11:5 2am SORE THROAT December 01, 2024 10:39 am R LEG PAIN FROM FALL December 07, 2024 12: 24pm pain-right knee and tib and fib November 2:04pm R L INJURY December 12, 2024 1:06 pm RIGHT ANKLE December 14, 2024 1:21 pm POSSIBLE UTI - RT LEG SWOLLEN AND RED Ju ly 2024 2:52pm CONCERN FOR UTI January 14, 2025 11 :51am Reason for Visit Admit Date Right knee DJD October 20, 2024 11:11 am Right knee DJD October 27, 2024 10:48 am Acute pharyngitis November 04, 2024 8:19 am Right knee DJD November 05, 2024 11:2 7am Abnormal bruising November 08, 2024 3:09 pm Abnormal bruising November 15, 2024 11:5 2am Edema December 12, 2024 1:06 pm Contusion of right lower leg December 14, 2024 1:21pm Hematoma December 14, 2024 1:21 pm Osteoarthritis, knee December 14, 2024 1:2 1pm Skin tear of right lower leg without com plication December 14, 2024 1:21pm Concern about urinary tract disease with out diagnosis December 21, 2024 2:52pm Skin tear of right lower leg without com plication December 21, 2024 2:52pm Chief Complaint Admit Date RIGHT KNEE October 20, 2024 11:11 am RIGHT KNEE October 27, 2024 10:48 am sore throat November 04, 2024 8:19 am RIGHT KNEE November 05, 2024 11:2 7am SPONTANEOUS ECCHYMOSES November 08, 2024 3 :09pm 1 WK - REVIEW LABS November 15, 2024 11:5 2am SORE THROAT December 01, 2024 10:39 am R LEG PAIN FROM FALL December 07, 2024 12: 24pm pain-right knee and tib and fib November 2:04pm R L INJURY December 12, 2024 1:06 pm RIGHT ANKLE December 14, 2024 1:21 pm POSSIBLE UTI - RT LEG SWOLLEN AND RED Ju ly 2024 2:52pm CONCERN FOR UTI January 14, 2025 11 :51am wound January 19, 2025 8: 02am wound January 19, 2025 10 :06am rib injury January 19, 2025 3: 31pm L SIDE CHEST INJURY FROM FALL December 3:53pm Reason for Visit Admit Date Right knee DJD October 20, 2024 11:11 am Right knee DJD October 27, 2024 10:48 am Acute pharyngitis November 04, 2024 8:19 am Right knee DJD November 05, 2024 11:2 7am Abnormal bruising November 08, 2024 3:09 pm Abnormal bruising November 15, 2024 11:5 2am Edema December 12, 2024 1:06 pm Contusion of right lower leg December 14, 2024 1:21pm Hematoma December 14, 2024 1:21 pm Osteoarthritis, knee December 14, 2024 1:2 1pm Skin tear of right lower leg without com plication December 14, 2024 1:21pm Concern about urinary tract disease with out diagnosis December 21, 2024 2:52pm Skin tear of right lower leg without com plication December 21, 2024 2:52pm Cellulitis of right lower extremity Augu 2024 8:02am Edema of right lower leg January 19 8:02am Non-pressure ulcer of right lower extremity with fat layer exposed January 19, 2025 8:02am Chronic ulcer of right leg January 19, 2025 8:02am Reason for Visit Admit Date Right knee DJD October 20, 2024 11:11 am Right knee DJD October 27, 2024 10:48 am Acute pharyngitis November 04, 2024 8:19 am Right knee DJD November 05, 2024 11:2 7am Abnormal bruising November 08, 2024 3:09 pm Abnormal bruising November 15, 2024 11:5 2am Edema December 12, 2024 1:06 pm Contusion of right lower leg December 14, 2024 1:21pm Hematoma December 14, 2024 1:21 pm Osteoarthritis, knee December 14, 2024 1:2 1pm Skin tear of right lower leg without com plication December 14, 2024 1:21pm Concern about urinary tract disease with out diagnosis December 21, 2024 2:52pm Skin tear of right lower leg without com plication December 21, 2024 2:52pm Cellulitis of right lower extremity Decu 2024 8:02am Edema of right lower leg January 19 8:02am Non-pressure ulcer of right lower extremity with fat layer exposed January 19, 2025 8:02am Chronic ulcer of right leg January 19, 2025 8:02am Chest wall contusion January 19, 2025 3 :53pm Additional Source Comments INFORMATION SOURCE (unrecogn ized section and content) DATE CREATED AUTHOR 08/15/2021 [facility] ([place]) DATE CREATED AUTHOR AUTHOR'S ORGANIZ ATION 08/31/2021 [facility] DATE CREATED AUTHOR AUTHOR'S ORGANIZ ATION 05/19/2022 [facility] DATE CREATED AUTHOR AUTHOR'S ORGANIZ ATION 01/13/2025 [facility] DATE CREATED AUTHOR AUTHOR'S ORGANIZ ATION 01/22/2025 [facility] Source Comments (unrecognize d section and content) In the event this informatio n is protected by the Federal Confidentiality of Alcohol and Drug Abuse Patient Records regulations: The Federal rules restrict any use of the information to criminally investigate or prosecute any alcohol or drug abuse patient.[facility] Care Teams (unrecognized sec tion and content) Team Status: Active Member Role Status Dates Dr. Bean Bettencourt DO Primary Care Provider Active Team Status: Inactive Member Role Status Dates Dr. Bean Bettencourt DO Primary Care Provider Active Start: August 02, 2024 End: August 02, 2024 Dr. Bean Bettencourt DO Referring Provider Active Start: August 02, 2024 End: August 02, 2024 JEY Blanca Attending Provider Active Start: August 02, 2024 End: August 02, 2024 Team Status: Inactive Member Role Status Dates Dr. Bean Bettencourt DO Primary Care Provider Active Start: August 04, 2024 End: August 04, 2024 Dr. Bean Bettencourt DO Referring Provider Active Start: August 04, 2024 End: August 04, 2024 JEY Blanca Attending Provider Active Start: August 04, 2024 End: August 04, 2024 Team Status: Inactive Member Role Status Dates Dr. Bean Bettencourt DO Primary Care Provider Active Start: August 06, 2024 End: August 06, 2024 Dr. Bean Bettencourt DO Referring Provider Active Start: August 06, 2024 End: August 06, 2024 JEY Weir Attending Provider Active St art: August 06, 2024 End: August 06, 2024 Team Status: Inactive Member Role Status Dates Dr. Bean Bettencourt DO Primary Care Provider Active Start: August 06, 2024 End: August 06, 2024 Dr. Dusty Car MD Attending Provider Active S tart: August 06, 2024 End: August 06, 2024 Team Status: Inactive Member Role Status Dates Dr. Bean Bettencourt DO Primary Care Provider Active Start: August 12, 2024 End: August 12, 2024 Dr. Bean Bettencourt DO Referring Provider Active Start: August 12, 2024 End: August 12, 2024 Rohan KHANNA PA Attending Provider Active Sta rt: August 12, 2024 End: August 12, 2024 Team Status: Inactive Member Role Status Dates Dr. Bean Bettencourt DO Primary Care Provider Active Start: August 22, 2024 End: August 22, 2024 Dr. Fred Langley DO Attending Provider Active Start: August 22, 2024 End: August 22, 2024 Dr. Fred Langley DO Emergency Provider Active Start: August 22, 2024 End: August 22, 2024 Team Status: Inactive Member Role Status Dates Dr. Bean Bettencourt DO Primary Care Provider Active Start: August 27, 2024 End: August 27, 2024 Dr. Bean Bettencourt DO Referring Provider Active Start: August 27, 2024 End: August 27, 2024 JEY Weir Attending Provider Active St art: August 27, 2024 End: August 27, 2024 Team Status: Inactive Member Role Status Dates Dr. Bean Bettencourt DO Primary Care Provider Active Start: September 10, 2024 End: September 10, 2024 Dr. Bean Bettencourt DO Referring Provider Active Start: September 10, 2024 End: September 10, 2024 Dr. Ken Izaguirre , Attending Provider Active Start: September 10, 2024 End: September 10, 2024 Team Status: Inactive Member Role Status Dates Dr. Bean Bettencourt DO Primary Care Provider Active Start: September 10, 2024 End: September 10, 2024 Dr. Bean Bettnecourt DO Attending Provider Active Start: September 10, 2024 End: September 10, 2024 Dr. Bean Bettencourt DO Referring Provider Active Start: September 10, 2024 End: September 10, 2024 Team Status: Inactive Member Role Status Dates Dr. Bean Bettencourt DO Primary Care Provider Active Start: October 20, 2024 End: October 20, 2024 Dr. Bean Bettencourt DO Referring Provider Active Start: October 20, 2024 End: October 20, 2024 Dr. Ken Izaguirre DO Attending Provider Active Start: October 20, 2024 End: October 20, 2024 Team Status: Inactive Member Role Status Dates Dr. Bean Bettencourt DO Primary Care Provider Active Start: October 27, 2024 End: October 27, 2024 Dr. Bean Bettencourt DO Referring Provider Active Start: October 27, 2024 End: October 27, 2024 Dr. Ken Izaguirre DO Attending Provider Active Start: October 27, 2024 End: October 27, 2024 Team Status: Inactive Member Role Status Dates Dr. Bean Bettencourt DO Primary Care Provider Active Start: November 04, 2024 End: November 04, 2024 Dr. Bean Bettencourt DO Referring Provider Active Start: November 04, 2024 End: November 04, 2024 Rohan KHANNA PA Attending Provider Active Sta rt: November 04, 2024 End: November 04, 2024 Team Status: Inactive Member Role Status Dates Dr. Bean Bettencourt DO Primary Care Provider Active Start: November 05, 2024 End: November 05, 2024 Dr. Bean Bettencourt DO Referring Provider Active Start: November 05, 2024 End: November 05, 2024 TY Segundo Attending Provider Active Start: November 05, 2024 End: November 05, 2024 Team Status: Inactive Member Role Status Dates Dr. Bean Bettencourt DO Primary Care Provider Active Start: November 08, 2024 End: November 08, 2024 Dr. Bean Bettencourt DO Referring Provider Active Start: November 08, 2024 End: November 08, 2024 Dr. Luz Elena Hatch MD Attending Provider Active Start: November 08, 2024 End: November 08, 2024 Team Status: Active Member Role Status Dates Dr. Bean Bettencourt DO Primary Care Provider Active Start: November 08, 2024 Dr. Luz Elena Hatch MD Attending Provider Active Start: November 08, 2024 Dr. Luz Elena Hatch MD Referring Provider Active Start: November 08, 2024 Team Status: Inactive Member Role Status Dates Dr. Bean Bettencourt DO Primary Care Provider Active Start: November 15, 2024 End: November 15, 2024 Dr. Bean Bettencourt DO Referring Provider Active Start: November 15, 2024 End: November 15, 2024 Dr. Luz Elena Hatch MD Attending Provider Active Start: November 15, 2024 End: November 15, 2024 Team Status: Active Member Role Status Dates Dr. Bean Bettencourt DO Primary Care Provider Active Start: July 14, 2024 Dr. Bean Bettencourt DO Attending Provider Active Start: July 14, 2024 Dr. Bean Bettencourt DO Referring Provider Active Start: July 14, 2024 Team Status: Active Member Role Status Dates Dr. Bean Bettencourt DO Primary Care Provider Active Start: July 14, 2024 Dr. Dusty Car MD Attending Provider Active S tart: July 14, 2024 Dr. 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 Bean Bettencourt DO Family Provider Active Dr. Bean Bettencourt DO Primary Care Provider Active Team Status: Inactive Member Role Status Dates Dr. Bean Bettencourt DO Primary Care Provider, Referr ing Provider Active Jovany Weber DIRECTOR OF ALUMNI RELATIONS, DIRECTOR OF ALUMNI RELATIONS-C Attending Provider Active Team Status: Inactive Member Role Status Dates Dr. Bean Bettencourt DO Primary Care Provider, Referr ing Provider Active Rohan Peralta PA, PA Attending Provider Active Team Status: Inactive Member Role Status Dates Dr. Bean Bettencourt DO Primary Care Provider Active Dr. Dusty Car MD Attending Provider Active Team Status: Inactive Member Role Status Dates Dr. Bean Bettencourt DO Primary Care Provider, Referr ing Provider Active Mark Kirby PA, PA Attending Provider Active Team Status: Inactive Member Role Status Dates Dr. Bean Bettencourt DO Primary Care Provider Active Landry Rome PA, PA-C Attending Provider, Referring Pr ovider Active Team Status: Inactive Member Role Status Dates Dr. Bean Bettencourt , DO Primary Care Provider Active Dr. Jewel Puente , DO Attending Provider, Emergency Provider Active Team Status: Inactive Member Role Status Dates Dr. Bean Bettencourt , DO Primary Care Provider Active Mark KHANNA, PA Attending Provider, Referring Pr ovider Active Team Status: Active Member Role Status Dates Dr. Bean Bettencourt , DO Primary Care Provider Active Jovany Weber DIRECTOR OF ALUMNI RELATIONS, DIRECTOR OF ALUMNI RELATIONS-C Attending Provider, Referring Prov ider Active Team Status: Active Member Role Status Dates Dr. Bean Bettencourt , DO Primary Care Provider Active Dr. Jewel Puente , DO Emergency Provider Active Dr. Saray Meadows MD Admit Provider, Attending Prov ider Active Team Status: Active Member Role Status Dates Dr. Bean Bettencourt , DO Primary Care Provider Active Dr. Arias Alexander MD Attending Provider Active Team Status: Inactive Member Role Status Dates Dr. Bean Bettencourt , DO Primary Care Provider Active Dr. Jewel Puente , DO Emergency Provider Active Dr. Saray Meadows MD Admit Provider, Other Provider Active Dr. Salvador Tyler MD Attending Provider Active Team Status: Active Member Role Status Dates Dr. Bean Bettencourt DO Primary Care Provider Active Dr. Eleazar Pyle MD Attending Provider Active Team Status: Inactive Member Role Status Dates Dr. Bean Bettencourt DO Primary Care Provider Active Jovany Weber DIRECTOR OF ALUMNI RELATIONS, DIRECTOR OF ALUMNI RELATIONS-C Attending Provider, Referring Prov ider Active Team Status: Active Member Role Status Dates Dr. Bean Bettencourt , DO Primary Care Provider, Attend ing Provider Active Team Status: Active Member Role Status Dates Dr. Bean Bettencourt DO Primary Care Provider Active Dr. Marcus Champion DO Attending Provider, Referring Provider Active Team Status: Inactive Member Role Status Dates Dr. Bean Bettencourt , DO Primary Care Provider, Attend ing Provider Active Team Status: Inactive Member Role Status Dates Dr. Bean Bettencourt DO Primary Care Provider Active Dr. Marcus Champion , DO Attending Provider, Referring Provider Active Team Status: Active Member Role Status Dates Dr. Bean Bettencourt DO Primary Care Provider Active Dr. Eleazar Pyle MD Attending Provider Active Dr. Marcus Champion , DO Referring Provider Active Team Status: Active Member Role Status Dates Dr. Bean Bettencourt DO Primary Care Provider Active Dr. Hussein Jacobson DPM Attending Provider, Referring P rovider Active Team Status: Active Member Role Status Dates Dr. Bean Bettencourt , DO Primary Care Provider Active Mark KHANNA PA Attending Provider, Referring Pr ovider Active Team Status: Inactive Member Role Status Dates Dr. Bean Bettencourt , DO Primary Care Provider Active Dr. Rosi Garcia MD Emergency Provider Active Team Status: Inactive Member Role Status Dates Dr. Bean Bettencourt , DO Primary Care Provider Active Dr. Hussein Jacobson DPM Attending Provider, Referring P rovider Active Team Status: Active Member Role Status Dates Dr. Bean Bettencourt , DO Primary Care Provider Active Shashi Green DIRECTOR OF ALUMNI RELATIONS, DIRECTOR OF ALUMNI RELATIONS-C Referring Provider, Other Provid er Active Dr. Arias Alexander MD Attending Provider Active Team Status: Inactive Member Role Status Dates Dr. Bean Bettencourt , DO Primary Care Provider Active Shashi Green DIRECTOR OF ALUMNI RELATIONS, DIRECTOR OF ALUMNI RELATIONS-C Attending Provider, Referring Pr ovider Active Team Status: Inactive Member Role Status Dates Dr. Bean Bettencourt , DO Primary Care Provider Active Dr. Rosi Garcia MD Attending Provider, Emergency Provider Active Team Status: Inactive Member Role Status Dates Dr. Bean Bettencourt , DO Primary Care Provider Active Dr. Hilda Tapia MD Attending Provider, Referring Provider Active Team Status: Inactive Member Role Status Dates Dr. Bean Bettencourt , DO Primary Care Provider Active Dr. Reagan Kim MD Emergency Provider Active Team Status: Inactive Member Role Status Dates Dr. Bean Bettencourt , DO Primary Care Provider Active Dr. Reagan Kim MD Attending Provider, Emergency Provi kristen Active Team Status: Inactive Member Role Status Dates Dr. Bean Bettencourt , DO Primary Care Provider Active Mark KHANNA, PA Attending Provider Active Team Status: Inactive Member Role Status Dates Dr. Bean Bettencourt , DO Primary Care Provider Active Rohan KHANNA, PA Attending Provider, Referring Provi kristen Active Team Status: Inactive Member Role Status Dates Dr. Bean Bettencourt , DO Primary Care Pr ovider, Attending Provider, Referring Provider Active Team Status: Inactive Member Role Status Dates Dr. Bean Bettencourt , DO Primary Care Provider, Referr ing Provider Active Italo Toussaint PA, PA Attending Provider Active Team Status: Inactive Member Role Status Dates Dr. Bean Bettencourt , DO Primary Care Provider, Referr ing Provider Active Joseline Mena PA, PA Attending Provider Active Team Status: Inactive Member Role Status Dates Dr. Bean Bettencourt DO Primary Care Provider Active Italo KHANNA PA Attending Provider, Referring Prov ider Active Team Status: Inactive Member Role Status Dates Dr. Bean Bettencourt DO Primary Care Provider Active Joseline KHANNA PA Attending Provider Active Team Status: Active Member Role Status Dates Dr. Bean Bettencourt DO Primary Care Provider Active Dr. Joe Tolentino MD Attending Provider Active Team Status: Inactive Member Role Status Dates Dr. Bean Bettencourt DO Primary Care Provider Active Start: April 28, 2024 End: April 28, 2024 Dr. Bean Bettencourt DO Referring Provider Active Start: April 28, 2024 End: April 28, 2024 Mark KHANNA PA Attending Provider Active Start: April 28, 2024 End: April 28, 2024 Team Status: Inactive Member Role Status Dates JEY Blanca Attending Provider Active Start: April 28, 2024 End: April 28, 2024 JEY Blanca Referring Provider Active Start: April 28, 2024 End: April 28, 2024 Team Status: Inactive Member Role Status Dates Dr. Bean Bettencourt DO Attending Provider Active Start: June 16, 2024 End: June 16, 2024 Team Status: Inactive Member Role Status Dates Dr. Dusty Car MD Attending Provider Active S tart: June 16, 2024 End: June 16, 2024 Team Status: Inactive Member Role Status Dates Dr. Bean Bettencourt DO Primary Care Provider Active Start: August 22, 2024 End: August 22, 2024 Dr. Fred Langley DO Emergency Provider Active Start: August 22, 2024 End: August 22, 2024 Team Status: Active Member Role/Relationship Status Dates Dr. Bean Bettencourt DO Primary Care Provider Active Team Status: Inactive Member Role/Relationship Status Dates Dr. Bean Bettencourt DO Primary Care Provider Active Start: August 04, 2024 End: August 04, 2024 Dr. Bean Bettencourt DO Referring Provider Active Start: August 04, 2024 End: August 04, 2024 Mark KHANNA PA Attending Provider Active Start: August 04, 2024 End: August 04, 2024 Team Status: Inactive Member Role/Relationship Status Dates Dr. Bean Bettencourt DO Primary Care Provider Active Start: August 06, 2024 End: August 06, 2024 Dr. Bean Bettencourt DO Referring Provider Active Start: August 06, 2024 End: August 06, 2024 JEY Weir Attending Provider Active St art: August 06, 2024 End: August 06, 2024 Team Status: Inactive Member Role/Relationship Status Dates Dr. Bean Bettencourt DO Primary Care Provider Active Start: August 06, 2024 End: August 06, 2024 Dr. Dusty Car MD Attending Provider Active S tart: August 06, 2024 End: August 06, 2024 Team Status: Inactive Member Role/Relationship Status Dates Dr. Bean Bettencourt DO Primary Care Provider Active Start: August 12, 2024 End: August 12, 2024 Dr. Bean Bettencourt DO Referring Provider Active Start: August 12, 2024 End: August 12, 2024 JEY Kirby Attending Provider Active Sta rt: August 12, 2024 End: August 12, 2024 Team Status: Inactive Member Role/Relationship Status Dates Dr. Bean Bettencourt DO Primary Care Provider Active Start: August 22, 2024 End: August 22, 2024 Dr. Fred Langley DO Attending Provider Active Start: August 22, 2024 End: August 22, 2024 Dr. Fred Langley DO Emergency Provider Active Start: August 22, 2024 End: August 22, 2024 Team Status: Inactive Member Role/Relationship Status Dates Dr. Bean Bettencourt DO Primary Care Provider Active Start: August 27, 2024 End: August 27, 2024 Dr. Bean Bettencourt DO Referring Provider Active Start: August 27, 2024 End: August 27, 2024 JEY Weir Attending Provider Active St art: August 27, 2024 End: August 27, 2024 Team Status: Inactive Member Role/Relationship Status Dates Dr. Bean Bettencourt DO Primary Care Provider Active Start: September 10, 2024 End: September 10, 2024 Dr. Bean Bettencourt DO Referring Provider Active Start: September 10, 2024 End: September 10, 2024 Dr. Ken Izaguirre DO Attending Provider Active Start: September 10, 2024 End: September 10, 2024 Team Status: Inactive Member Role/Relationship Status Dates Dr. Bean Bettencourt DO Primary Care Provider Active Start: September 10, 2024 End: September 10, 2024 Dr. Bean Bettencourt DO Attending Provider Active Start: September 10, 2024 End: September 10, 2024 Dr. Bean Bettencourt DO Referring Provider Active Start: September 10, 2024 End: September 10, 2024 Team Status: Inactive Member Role/Relationship Status Dates Dr. Bean Bettencourt DO Primary Care Provider Active Start: October 20, 2024 End: October 20, 2024 Dr. Bean Bettencourt DO Referring Provider Active Start: October 20, 2024 End: October 20, 2024 Dr. Ken Izaguirre DO Attending Provider Active Start: October 20, 2024 End: October 20, 2024 Team Status: Inactive Member Role/Relationship Status Dates Dr. Bean Bettencourt DO Primary Care Provider Active Start: October 27, 2024 End: October 27, 2024 Dr. Bean Bettencourt DO Referring Provider Active Start: October 27, 2024 End: October 27, 2024 Dr. Ken Izaguirre DO Attending Provider Active Start: October 27, 2024 End: October 27, 2024 Team Status: Inactive Member Role/Relationship Status Dates Dr. Bean Bettencourt DO Primary Care Provider Active Start: November 04, 2024 End: November 04, 2024 Dr. Bean Bettencourt DO Referring Provider Active Start: November 04, 2024 End: November 04, 2024 Rohan KHANNA, PA Attending Provider Active Sta rt: November 04, 2024 End: November 04, 2024 Team Status: Inactive Member Role/Relationship Status Dates Dr. Bean Bettencourt DO Primary Care Provider Active Start: November 05, 2024 End: November 05, 2024 Dr. Bean Bettencourt DO Referring Provider Active Start: November 05, 2024 End: November 05, 2024 TY Segundo Attending Provider Active Start: November 05, 2024 End: November 05, 2024 Team Status: Inactive Member Role/Relationship Status Dates Dr. Bean Bettencourt DO Primary Care Provider Active Start: November 08, 2024 End: November 08, 2024 Dr. Bean Bettencourt DO Referring Provider Active Start: November 08, 2024 End: November 08, 2024 Dr. Luz Elena Hatch MD Attending Provider Active Start: November 08, 2024 End: November 08, 2024 Team Status: Active Member Role/Relationship Status Dates Dr. Bean Bettencourt DO Primary Care Provider Active Start: November 08, 2024 Dr. Luz Elena Hatch MD Attending Provider Active Start: November 08, 2024 Dr. Luz Elena Hatch MD Referring Provider Active Start: November 08, 2024 Team Status: Inactive Member Role/Relationship Status Dates Dr. Bean Bettencourt DO Primary Care Provider Active Start: November 15, 2024 End: November 15, 2024 Dr. Bean Bettencourt DO Referring Provider Active Start: November 15, 2024 End: November 15, 2024 Dr. Luz Elena Hatch MD Attending Provider Active Start: November 15, 2024 End: November 15, 2024 Team Status: Inactive Member Role/Relationship Status Dates Dr. Bean Bettencourt DO Primary Care Provider Active Start: December 01, 2024 End: December 01, 2024 Dr. Bean Bettencourt DO Referring Provider Active Start: December 01, 2024 End: December 01, 2024 JEY Blanca Attending Provider Active Start: December 01, 2024 End: December 01, 2024 Team Status: Inactive Member Role/Relationship Status Dates Dr. Bean Bettencourt DO Primary Care Provider Active Start: August 12, 2024 End: August 12, 2024 Dr. Bean Bettencourt DO Referring Provider Active Start: August 12, 2024 End: August 12, 2024 JEY Kirby Attending Provider Active Sta rt: August 12, 2024 End: August 12, 2024 Team Status: Inactive Member Role/Relationship Status Dates Dr. Bean Bettencourt DO Primary Care Provider Active Start: August 22, 2024 End: August 22, 2024 Dr. Fred Langley DO Attending Provider Active Start: August 22, 2024 End: August 22, 2024 Dr. Fred Langley DO Emergency Provider Active Start: August 22, 2024 End: August 22, 2024 Team Status: Inactive Member Role/Relationship Status Dates Dr. Bean Bettencourt DO Primary Care Provider Active Start: August 27, 2024 End: August 27, 2024 Dr. Bean Bettencourt DO Referring Provider Active Start: August 27, 2024 End: August 27, 2024 JEY Weir Attending Provider Active St art: August 27, 2024 End: August 27, 2024 Team Status: Inactive Member Role/Relationship Status Dates Dr. Bean Bettencourt DO Primary Care Provider Active Start: September 10, 2024 End: September 10, 2024 Dr. Bean Bettencourt DO Referring Provider Active Start: September 10, 2024 End: September 10, 2024 Dr. Ken Izaguirre DO Attending Provider Active Start: September 10, 2024 End: September 10, 2024 Team Status: Inactive Member Role/Relationship Status Dates Dr. Bean Bettencourt DO Primary Care Provider Active Start: September 10, 2024 End: September 10, 2024 Dr. Bean Bettencourt DO Attending Provider Active Start: September 10, 2024 End: September 10, 2024 Dr. Bean Bettencourt DO Referring Provider Active Start: September 10, 2024 End: September 10, 2024 Team Status: Inactive Member Role/Relationship Status Dates Dr. Bean Bettencourt DO Primary Care Provider Active Start: October 20, 2024 End: October 20, 2024 Dr. Bean Bettencourt DO Referring Provider Active Start: October 20, 2024 End: October 20, 2024 Dr. Ken Izaguirre DO Attending Provider Active Start: October 20, 2024 End: October 20, 2024 Team Status: Inactive Member Role/Relationship Status Dates Dr. Bean Bettencourt DO Primary Care Provider Active Start: October 27, 2024 End: October 27, 2024 Dr. Bean Bettencourt DO Referring Provider Active Start: October 27, 2024 End: October 27, 2024 Dr. Ken Izaguirre DO Attending Provider Active Start: October 27, 2024 End: October 27, 2024 Team Status: Inactive Member Role/Relationship Status Dates Dr. Bean Bettencourt DO Primary Care Provider Active Start: November 04, 2024 End: November 04, 2024 Dr. Bean Bettencourt DO Referring Provider Active Start: November 04, 2024 End: November 04, 2024 JEY Kirby Attending Provider Active Sta rt: November 04, 2024 End: November 04, 2024 Team Status: Inactive Member Role/Relationship Status Dates Dr. Bean Bettencourt DO Primary Care Provider Active Start: November 05, 2024 End: November 05, 2024 Dr. Bean Bettencourt DO Referring Provider Active Start: November 05, 2024 End: November 05, 2024 TY Segundo Attending Provider Active Start: November 05, 2024 End: November 05, 2024 Team Status: Inactive Member Role/Relationship Status Dates Dr. Bean Bettencourt DO Primary Care Provider Active Start: November 08, 2024 End: November 08, 2024 Dr. Bean Bettencourt DO Referring Provider Active Start: November 08, 2024 End: November 08, 2024 Dr. Luz Elena Hatch MD Attending Provider Active Start: November 08, 2024 End: November 08, 2024 Team Status: Active Member Role/Relationship Status Dates Dr. Bean Bettencourt DO Primary Care Provider Active Start: November 08, 2024 Dr. Luz Elena Hatch MD Attending Provider Active Start: November 08, 2024 Dr. Luz Elena Hatch MD Referring Provider Active Start: November 08, 2024 Team Status: Inactive Member Role/Relationship Status Dates Dr. Bean Bettencourt DO Primary Care Provider Active Start: November 15, 2024 End: November 15, 2024 Dr. Bean Bettencourt DO Referring Provider Active Start: November 15, 2024 End: November 15, 2024 Dr. Luz Elena Hatch MD Attending Provider Active Start: November 15, 2024 End: November 15, 2024 Team Status: Inactive Member Role/Relationship Status Dates Dr. Bean Bettencourt DO Primary Care Provider Active Start: December 01, 2024 End: December 01, 2024 Dr. Bean Bettencourt DO Referring Provider Active Start: December 01, 2024 End: December 01, 2024 Mark Kirby PA, PA Attending Provider Active Start: December 01, 2024 End: December 01, 2024 Team Status: Inactive Member Role/Relationship Status Dates Dr. Bean Bettencourt DO Primary Care Provider Active Start: December 07, 2024 End: December 07, 2024 Dr. Bean Bettencourt DO Referring Provider Active Start: December 07, 2024 End: December 07, 2024 JEY Blanca Attending Provider Active Start: December 07, 2024 End: December 07, 2024 Team Status: Active Member Role/Relationship Status Dates Dr. Bean Bettencourt DO Primary Care Provider Active Start: December 07, 2024 Mark KHANNA PA Attending Provider Active Start: December 07, 2024 Mark KHANNA PA Referring Provider Active Start: December 07, 2024 Team Status: Inactive Member Role/Relationship Status Dates Dr. Bean Bettencourt DO Primary Care Provider Active Start: August 22, 2024 End: August 22, 2024 Dr. Fred Langley DO Attending Provider Active Start: August 22, 2024 End: August 22, 2024 Dr. Fred Langley DO Emergency Provider Active Start: August 22, 2024 End: August 22, 2024 Team Status: Inactive Member Role/Relationship Status Dates Dr. Bean Bettencourt DO Primary Care Provider Active Start: August 27, 2024 End: August 27, 2024 Dr. Bean Bettencourt DO Referring Provider Active Start: August 27, 2024 End: August 27, 2024 JEY Weir Attending Provider Active St art: August 27, 2024 End: August 27, 2024 Team Status: Inactive Member Role/Relationship Status Dates Dr. Bean Bettencourt DO Primary Care Provider Active Start: September 10, 2024 End: September 10, 2024 Dr. Bean Bettencourt DO Referring Provider Active Start: September 10, 2024 End: September 10, 2024 Dr. Ken Izaguirre DO Attending Provider Active Start: September 10, 2024 End: September 10, 2024 Team Status: Inactive Member Role/Relationship Status Dates Dr. Bean Bettencourt DO Primary Care Provider Active Start: September 10, 2024 End: September 10, 2024 Dr. Bean Bettencourt DO Attending Provider Active Start: September 10, 2024 End: September 10, 2024 Dr. Bean Bettencourt DO Referring Provider Active Start: September 10, 2024 End: September 10, 2024 Team Status: Inactive Member Role/Relationship Status Dates Dr. Bean Bettencourt DO Primary Care Provider Active Start: October 20, 2024 End: October 20, 2024 Dr. Bean Bettencourt DO Referring Provider Active Start: October 20, 2024 End: October 20, 2024 Dr. Ken Izaguirre DO Attending Provider Active Start: October 20, 2024 End: October 20, 2024 Team Status: Inactive Member Role/Relationship Status Dates Dr. Bean Bettencourt DO Primary Care Provider Active Start: October 27, 2024 End: October 27, 2024 Dr. Bean Bettencourt DO Referring Provider Active Start: October 27, 2024 End: October 27, 2024 Dr. Ken Izaguirre DO Attending Provider Active Start: October 27, 2024 End: October 27, 2024 Team Status: Inactive Member Role/Relationship Status Dates Dr. Bean Bettencourt DO Primary Care Provider Active Start: November 04, 2024 End: November 04, 2024 Dr. Bean Bettencourt DO Referring Provider Active Start: November 04, 2024 End: November 04, 2024 Rohan KHANNA PA Attending Provider Active Sta rt: November 04, 2024 End: November 04, 2024 Team Status: Inactive Member Role/Relationship Status Dates Dr. Bean Bettencourt DO Primary Care Provider Active Start: November 05, 2024 End: November 05, 2024 Dr. Bean Bettencourt DO Referring Provider Active Start: November 05, 2024 End: November 05, 2024 TY Segundo Attending Provider Active Start: November 05, 2024 End: November 05, 2024 Team Status: Inactive Member Role/Relationship Status Dates Dr. Bean Bettencourt DO Primary Care Provider Active Start: November 08, 2024 End: November 08, 2024 Dr. Bean Bettencourt DO Referring Provider Active Start: November 08, 2024 End: November 08, 2024 Dr. Luz Elena Hatch MD Attending Provider Active Start: November 08, 2024 End: November 08, 2024 Team Status: Active Member Role/Relationship Status Dates Dr. Bean Bettencourt DO Primary Care Provider Active Start: November 08, 2024 Dr. Luz Elena Hatch MD Attending Provider Active Start: November 08, 2024 Dr. Luz Elena Hatch MD Referring Provider Active Start: November 08, 2024 Team Status: Inactive Member Role/Relationship Status Dates Dr. Bean eBttencourt DO Primary Care Provider Active Start: November 15, 2024 End: November 15, 2024 Dr. Bean Bettencourt DO Referring Provider Active Start: November 15, 2024 End: November 15, 2024 Dr. Luz Elena Hatch MD Attending Provider Active Start: November 15, 2024 End: November 15, 2024 Team Status: Inactive Member Role/Relationship Status Dates Dr. Bean Bettencourt DO Primary Care Provider Active Start: December 01, 2024 End: December 01, 2024 Dr. Bean Bettencourt DO Referring Provider Active Start: December 01, 2024 End: December 01, 2024 Mark KHANNA PA Attending Provider Active Start: December 01, 2024 End: December 01, 2024 Team Status: Inactive Member Role/Relationship Status Dates Dr. Bean Bettencourt DO Primary Care Provider Active Start: December 07, 2024 End: December 07, 2024 Dr. Bean Bettencourt DO Referring Provider Active Start: December 07, 2024 End: December 07, 2024 Mark KHANNA PA Attending Provider Active Start: December 07, 2024 End: December 07, 2024 Team Status: Active Member Role/Relationship Status Dates Dr. Bean Bettencourt DO Primary Care Provider Active Start: December 07, 2024 Mark KHANNA PA Attending Provider Active Start: December 07, 2024 Mark Kirby PA, PA Referring Provider Active Start: December 07, 2024 Team Status: Inactive Member Role/Relationship Status Dates Dr. Bean Bettencourt DO Primary Care Provider Active Start: December 12, 2024 End: December 12, 2024 Dr. Bean Bettencourt DO Referring Provider Active Start: December 12, 2024 End: December 12, 2024 Isauro Barragan DIRECTOR [employer], DIRECTOR OF [employer]-C Attending Provider Active S tart: December 12, 2024 End: December 12, 2024 Team Status: Inactive Member Role/Relationship Status Dates Dr. Bean Bettencourt DO Primary Care Provider Active Start: December 07, 2024 End: December 07, 2024 Mark Kirby PA PA Attending Provider Active Start: December 07, 2024 End: December 07, 2024 Mark Kirby PA PA Referring Provider Active Start: December 07, 2024 End: December 07, 2024 Team Status: Active Member Role/Relationship Status Dates Dr. Bean Bettencourt DO Primary Care Provider Active Start: December 13, 2024 Isauro Barragan DIRECTOR [employer], DIRECTOR OF [employer]-C Attending Provider Active S tart: December 13, 2024 Isauro Barragan DIRECTOR OF [employer]ATIONS, DIRECTOR OF [employer]-C Referring Provider Active S tart: December 13, 2024 Team Status: Inactive Member Role/Relationship Status Dates Dr. Bean Bettencourt DO Primary Care Provider Active Start: November 23, 2024 Dr. Elena Franco MD Attending Provider Active Start: November 23, 2024 Team Status: Inactive Member Role/Relationship Status Dates Dr. Bean Bettencourt DO Primary Care Provider Active Start: December 07, 2024 End: December 07, 2024 Mark KHANNA PA Attending Provider Active Start: December 07, 2024 End: December 07, 2024 Mark KHANNA PA Referring Provider Active Start: December 07, 2024 End: December 07, 2024 Team Status: Inactive Member Role/Relationship Status Dates Dr. Bean Bettencourt DO Primary Care Provider Active Start: December 12, 2024 End: December 12, 2024 Dr. Bean Bettencourt DO Referring Provider Active Start: December 12, 2024 End: December 12, 2024 Isauro Barragan DIRECTOR [employer], DIRECTOR OF [employer]-C Attending Provider Active S tart: December 12, 2024 End: December 12, 2024 Team Status: Active Member Role/Relationship Status Dates Dr. Bean Bettencourt DO Primary Care Provider Active Start: December 13, 2024 Isauro Barragan DIRECTOR OF [employer], DIRECTOR OF [employer]-C Attending Provider Active S tart: December 13, 2024 Isauro Barragan DIRECTOR OF [employer]ATIONS, DIRECTOR OF [employer]-C Referring Provider Active S tart: December 13, 2024 Team Status: Inactive Member Role/Relationship Status Dates Dr. Bean Bettencourt DO Primary Care Provider Active Start: December 14, 2024 End: December 14, 2024 Dr. Bean Bettencourt DO Referring Provider Active Start: December 14, 2024 End: December 14, 2024 Carolyn Tadeo NP-C Attending Provider Active Start: December 14, 2024 End: December 14, 2024 Team Status: Inactive Member Role/Relationship Status Dates Dr. Bean R Brown , DO Primary Care Provider Active Start: December 13, 2024 End: December 13, 2024 Isauro Barragan DIRECTOR OF [employer], DIRECTOR OF [employer]-C Attending Provider Active S tart: December 13, 2024 End: December 13, 2024 Isauro Barragan DIRECTOR OF [employer]ATIONS, DIRECTOR OF [employer]-C Referring Provider Active S tart: December 13, 2024 End: December 13, 2024 Team Status: Inactive Member Role/Relationship Status Dates Dr. Bean Bettencourt DO Primary Care Provider Active Start: August 27, 2024 End: August 27, 2024 Dr. Bean Bettencourt DO Referring Provider Active Start: August 27, 2024 End: August 27, 2024 Italo Toussaint PA, PA Attending Provider Active St art: August 27, 2024 End: August 27, 2024 Team Status: Inactive Member Role/Relationship Status Dates Dr. Bean Bettencourt DO Primary Care Provider Active Start: September 10, 2024 End: September 10, 2024 Dr. Bean Bettencourt DO Referring Provider Active Start: September 10, 2024 End: September 10, 2024 Dr. Ken Izaguirre DO Attending Provider Active Start: September 10, 2024 End: September 10, 2024 Team Status: Inactive Member Role/Relationship Status Dates Dr. Bean Bettencourt DO Primary Care Provider Active Start: September 10, 2024 End: September 10, 2024 Dr. Bean Bettencourt DO Attending Provider Active Start: September 10, 2024 End: September 10, 2024 Dr. Bean Bettencourt DO Referring Provider Active Start: September 10, 2024 End: September 10, 2024 Team Status: Inactive Member Role/Relationship Status Dates Dr. Bean Bettencourt DO Primary Care Provider Active Start: October 20, 2024 End: October 20, 2024 Dr. Bean Bettencourt DO Referring Provider Active Start: October 20, 2024 End: October 20, 2024 Dr. Ken Izaguirre DO Attending Provider Active Start: October 20, 2024 End: October 20, 2024 Team Status: Inactive Member Role/Relationship Status Dates Dr. Bean Bettencourt DO Primary Care Provider Active Start: October 27, 2024 End: October 27, 2024 Dr. Bean Bettencourt DO Referring Provider Active Start: October 27, 2024 End: October 27, 2024 Dr. Ken Izaguirre DO Attending Provider Active Start: October 27, 2024 End: October 27, 2024 Team Status: Inactive Member Role/Relationship Status Dates Dr. Bean Bettencourt DO Primary Care Provider Active Start: November 04, 2024 End: November 04, 2024 Dr. Bean Bettencourt DO Referring Provider Active Start: November 04, 2024 End: November 04, 2024 JEY Kirby Attending Provider Active Sta rt: November 04, 2024 End: November 04, 2024 Team Status: Inactive Member Role/Relationship Status Dates Dr. Bean Bettencourt DO Primary Care Provider Active Start: November 05, 2024 End: November 05, 2024 Dr. Bean Bettencourt DO Referring Provider Active Start: November 05, 2024 End: November 05, 2024 TY Segundo Attending Provider Active Start: November 05, 2024 End: November 05, 2024 Team Status: Inactive Member Role/Relationship Status Dates Dr. Bean Bettencourt DO Primary Care Provider Active Start: November 08, 2024 End: November 08, 2024 Dr. Bean Bettencourt DO Referring Provider Active Start: November 08, 2024 End: November 08, 2024 Dr. Luz Elena Hatch MD Attending Provider Active Start: November 08, 2024 End: November 08, 2024 Team Status: Active Member Role/Relationship Status Dates Dr. Bean Bettencourt DO Primary Care Provider Active Start: November 08, 2024 Dr. Luz Elena Hatch MD Attending Provider Active Start: November 08, 2024 Dr. Luz Elena Hatch MD Referring Provider Active Start: November 08, 2024 Team Status: Inactive Member Role/Relationship Status Dates Dr. Bean Bettencourt DO Primary Care Provider Active Start: November 15, 2024 End: November 15, 2024 Dr. Bean Bettencourt DO Referring Provider Active Start: November 15, 2024 End: November 15, 2024 Dr. Luz Elena Hatch MD Attending Provider Active Start: November 15, 2024 End: November 15, 2024 Team Status: Inactive Member Role/Relationship Status Dates Dr. Bean Bettencourt DO Primary Care Provider Active Start: November 23, 2024 Dr. Elena Franco MD Attending Provider Active Start: November 23, 2024 Team Status: Inactive Member Role/Relationship Status Dates Dr. Bean Bettencourt DO Primary Care Provider Active Start: December 13, 2024 End: December 13, 2024 Isauro Barragan DIRECTOR [employer], DIRECTOR OF [employer]-C Attending Provider Active S tart: December 13, 2024 End: December 13, 2024 Isauro Barragan DIRECTOR OF [employer], DIRECTOR OF [employer]-C Referring Provider Active S tart: December 13, 2024 End: December 13, 2024 Team Status: Inactive Member Role/Relationship Status Dates Dr. Bean Bettencourt DO Primary Care Provider Active Start: December 14, 2024 End: December 14, 2024 Dr. Bean Bettencourt DO Referring Provider Active Start: December 14, 2024 End: December 14, 2024 Carolyn Tadeo DIRECTOR OF [employer]-C Attending Provider Active Start: December 14, 2024 End: December 14, 2024 Team Status: Inactive Member Role/Relationship Status Dates Dr. Bean Bettencourt DO Primary Care Provider Active Start: December 21, 2024 End: December 21, 2024 Dr. Bean Bettencourt DO Referring Provider Active Start: December 21, 2024 End: December 21, 2024 Althea Carrera NP-C Attending Provider Active Start: December 21, 2024 End: December 21, 2024 Team Status: Inactive Member Role/Relationship Status Dates Dr. Bean Bettencourt DO Primary Care Provider Active Start: October 20, 2024 End: October 20, 2024 Dr. Bean Bettencourt DO Referring Provider Active Start: October 20, 2024 End: October 20, 2024 Dr. Ken Izaguirre DO Attending Provider Active Start: October 20, 2024 End: October 20, 2024 Team Status: Inactive Member Role/Relationship Status Dates Dr. Bean Bettencourt DO Primary Care Provider Active Start: October 27, 2024 End: October 27, 2024 Dr. Bean Bettencourt DO Referring Provider Active Start: October 27, 2024 End: October 27, 2024 Dr. Ken Izaguirre DO Attending Provider Active Start: October 27, 2024 End: October 27, 2024 Team Status: Inactive Member Role/Relationship Status Dates Dr. Bean Bettencourt DO Primary Care Provider Active Start: November 04, 2024 End: November 04, 2024 Dr. Bean Bettencourt DO Referring Provider Active Start: November 04, 2024 End: November 04, 2024 JEY Kirby Attending Provider Active Sta rt: November 04, 2024 End: November 04, 2024 Team Status: Inactive Member Role/Relationship Status Dates Dr. Bean Bettencourt DO Primary Care Provider Active Start: November 05, 2024 End: November 05, 2024 Dr. Bean Bettencourt DO Referring Provider Active Start: November 05, 2024 End: November 05, 2024 TY Segundo Attending Provider Active Start: November 05, 2024 End: November 05, 2024 Team Status: Inactive Member Role/Relationship Status Dates Dr. Bean Bettencourt DO Primary Care Provider Active Start: November 08, 2024 End: November 08, 2024 Dr. Bean Bettencourt DO Referring Provider Active Start: November 08, 2024 End: November 08, 2024 Dr. Luz Elena Hatch MD Attending Provider Active Start: November 08, 2024 End: November 08, 2024 Team Status: Active Member Role/Relationship Status Dates Dr. Bean Bettencourt DO Primary Care Provider Active Start: November 08, 2024 Dr. Luz Elena Hatch MD Attending Provider Active Start: November 08, 2024 Dr. Luz Elena Hatch MD Referring Provider Active Start: November 08, 2024 Team Status: Inactive Member Role/Relationship Status Dates Dr. Bean Bettencourt DO Primary Care Provider Active Start: November 15, 2024 End: November 15, 2024 Dr. Bean Bettencourt DO Referring Provider Active Start: November 15, 2024 End: November 15, 2024 Dr. Lu zElena Hatch MD Attending Provider Active Start: November 15, 2024 End: November 15, 2024 Team Status: Inactive Member Role/Relationship Status Dates Dr. Bean Bettencourt DO Primary Care Provider Active Start: November 23, 2024 Dr. Elena Franco MD Attending Provider Active Start: November 23, 2024 Team Status: Inactive Member Role/Relationship Status Dates Dr. Bean Bettencourt DO Primary Care Provider Active Start: December 01, 2024 End: December 01, 2024 Dr. Bean Bettencourt DO Referring Provider Active Start: December 01, 2024 End: December 01, 2024 JEY Blanca Attending Provider Active Start: December 01, 2024 End: December 01, 2024 Team Status: Inactive Member Role/Relationship Status Dates Dr. Bean Bettencourt DO Primary Care Provider Active Start: December 07, 2024 End: December 07, 2024 Dr. Bean Bettencourt DO Referring Provider Active Start: December 07, 2024 End: December 07, 2024 JEY Blanca Attending Provider Active Start: December 07, 2024 End: December 07, 2024 Team Status: Inactive Member Role/Relationship Status Dates Dr. Bean Bettencourt DO Primary Care Provider Active Start: December 07, 2024 End: December 07, 2024 JEY Blanca Attending Provider Active Start: December 07, 2024 End: December 07, 2024 JEY Blnaca Referring Provider Active Start: December 07, 2024 End: December 07, 2024 Team Status: Inactive Member Role/Relationship Status Dates Dr. Bean Bettencourt DO Primary Care Provider Active Start: December 12, 2024 End: December 12, 2024 Dr. Bean Bettencourt DO Referring Provider Active Start: December 12, 2024 End: December 12, 2024 Isauro Barragan NP, DIRECTOR [employer]-C Attending Provider Active S tart: December 12, 2024 End: December 12, 2024 Team Status: Inactive Member Role/Relationship Status Dates Dr. Bean Bettencourt DO Primary Care Provider Active Start: December 13, 2024 End: December 13, 2024 Isauro Barragan DIRECTOR OF [employer]ATIONS, DIRECTOR OF [employer]-C Attending Provider Active S tart: December 13, 2024 End: December 13, 2024 Isauro Barragan DIRECTOR OF [employer]ATIONS, DIRECTOR OF [employer]ATIONS-C Referring Provider Active S tart: December 13, 2024 End: December 13, 2024 Team Status: Inactive Member Role/Relationship Status Dates Dr. Bean Bettencourt DO Primary Care Provider Active Start: December 14, 2024 End: December 14, 2024 Dr. Bean Bettencourt DO Referring Provider Active Start: December 14, 2024 End: December 14, 2024 Carolyn Tadeo NP-C Attending Provider Active Start: December 14, 2024 End: December 14, 2024 Team Status: Inactive Member Role/Relationship Status Dates Dr. Bean R Brown , DO Primary Care Provider Active Start: December 21, 2024 End: December 21, 2024 Dr. Bean Bettencourt DO Referring Provider Active Start: December 21, 2024 End: December 21, 2024 Althea Carrera DIRECTOR OF [employer]-C Attending Provider Active Start: December 21, 2024 End: December 21, 2024 Team Status: Inactive Member Role/Relationship Status Dates Dr. Bean Bettencourt DO Primary Care Provider Active Start: January 14, 2025 End: January 14, 2025 Dr. Bean Bettencourt DO Referring Provider Active Start: January 14, 2025 End: January 14, 2025 Mark Kirby PA, PA Attending Provider Active Start: January 14, 2025 End: January 14, 2025 Team Status: Active Member Role/Relationship Status Dates Dr. Bean Bettencourt DO Primary Care Provider Active Start: January 14, 2025 Dr. Bean Bettencourt DO Attending Provider Active Start: January 14, 2025 Team Status: Active Member Role/Relationship Status Dates Dr. Bean Bettencourt DO Primary Care Provider Active Start: January 19, 2025 Hayde Sandoval DIRECTOR [employer], DIRECTOR OF [employer]-C Attending Provider Active Start: January 19, 2025 Paloma Quick PA, PA Referring Provider Active Start: January 19, 2025 Team Status: Active Member Role/Relationship Status Dates Dr. Bean Bettencourt DO Primary Care Provider Active Start: January 19, 2025 Hayde Sandoval DIRECTOR OF ALUMNI RELATIONS, DIRECTOR OF ALUMNI RELATIONS-C Attending Provider Active Start: January 19, 2025 Hayde Sandoval DIRECTOR OF ALUMNI RELATIONS, DIRECTOR OF ALUMNI RELATIONS-C Other Provider Active S tart: January 19, 2025 Paloma Quick PA, PA Referring Provider Active Start: January 19, 2025 Team Status: Active Member Role/Relationship Status Dates Dr. Bean Bettencourt DO Primary Care Provider Active Start: January 19, 2025 Mark Kirby PA, PA Attending Provider Active Start: January 19, 2025 Mark Kirby PA, PA Referring Provider Active Start: January 19, 2025 Team Status: Inactive Member Role/Relationship Status Dates Dr. Bean Bettencourt DO Primary Care Provider Active Start: January 19, 2025 End: January 19, 2025 Dr. Bean Bettencourt DO Referring Provider Active Start: January 19, 2025 End: January 19, 2025 Mark KHANNA, PA Attending Provider Active Start: January 19, 2025 End: January 19, 2025 Team Status: Inactive Member Role/Relationship Status Dates Dr. Bean Bettencourt DO Primary Care Provider Active Start: January 14, 2025 End: January 14, 2025 Dr. Bean Bettencourt DO Attending Provider Active Start: January 14, 2025 End: January 14, 2025 Goals (unrecognized section and content) Goals may be documented in a n alternate section Reason for Visit (unrecogniz ed section and content) Reason Comments Cough FLU POSITIVE ON . SYMPTOMS STARTED WORSENING FRIDAY Care Team (unrecognized sect ion and content) Care Team Personnel Name: BEAN BETTENCOURT DO Member Role: Primary Care Physician Address: Address: [facility] [address] [place] [address] [place], [place] [address] Care Team Related Persons Name: DOROTHY DEVINE Address: [address] [place], [place] [id number] FOR RECORDS PERTAINING TO PATIENTS WHO ARE [...] BE BASED ON THE PRIMARY CLINICAL RECORDS. [facility] [employer] [facility]. provides no warranty or guarantee of the accuracy or completeness of information in this document.
--- NOTE | 2025-01-22 09:25 | CT_ITS ---
PROCEDURE: CHEST WITHOUT CONTRAST 01/22/2025 REASON FOR EXAM: LEFT RIB CAGE TRAUMA AND INJURY. TECHNIQUE: Chest CT without contrast. Coronal and Sagittal reconstruction series were provided. One or more dose reduction techniques were used (e.g., Automated exposure control, adjustment of the mA and/or kV according to patient size, use of iterative reconstruction technique RADIATION DOSE SUMMARY: CTDlvol: 7.96 mGy DLP: 314.39 mGycm COMPARISON: Limited chest CT, 07/14/2024. FINDINGS: Lower neck:The thyroid gland is heterogeneous without discrete nodules. There is no supraclavicular lymphadenopathy. Mediastinum:There are multiple reactive mediastinal lymph nodes. There is anterior mediastinal cyst measuring 1.6 x 1.4 cm. Heart and Vasculature:The heart size is normal. There is no pericardial effusion. There is calcific vascular disease of the thoracic aorta and coronary arteries. Esophagus:There is a large, partially paraesophageal hiatal hernia. Upper Abdomen:There is calcific vascular disease of the visualized abdominal aorta. There are peripelvic cysts in both kidneys. Chest wall:The soft tissues of the chest wall are unremarkable. There is no axillary lymphadenopathy. There is degenerative disc disease, T8-9, T9-10 and L1-2. 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 There is scarring in the left lung base. There are no pulmonary nodules or masses. There are no pleural effusions. CT/Chest without Contrast IMPRESSION: 1. Multiple reactive mediastinal lymph nodes. Those visualized on the prior l imited CT of the chest are unchanged. 2. 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 This was partially s een on the prior limited chest CT. 3. Status post left partial pneumonectomy. 4. Calcific vascular disease. 5. Large hiatal hernia. Reading Location: [id number]
[2025-01-22 10:59] VITALS: BP 135/88; PULSE 80; PULSE 82; RESP 16; TEMP 36.5; O2SAT 98
== END 2025-01-22 11:01 | disposition home or self-care (01) ==
PROVIDERS: Emergency Provider Emergency Medicine; PCP Family Medicine; Visit Provider Emergency Medicine
DX: S20.20XA Contusion of thorax, unspecified, initial encounter (principal); Z87.891 Personal history of nicotine dependence; X58.XXXA Exposure to other specified factors, initial encounter
CPT/HCPCS: 71250; 99282

== ENCOUNTER 2025-02-02 08:30 | Outpatient (RCR) | payer MEDICARE, OTHER, SELFPAY ==
[2025-01-26 08:31] VITALS: BP 124/86; PULSE 73; RESP 16; TEMP 36.2
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
[2025-02-02 08:39] VITALS: BP 135/93; PULSE 61; RESP 18; TEMP 36
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
== END 2025-02-22 15:47 | disposition home or self-care (01) ==
LOC: WC 08:30
PROVIDERS: PCP Family Medicine; Referring Provider Physician Assistant; Visit Provider Nurse Practitioner
DX: L97.812 Non-pressure chronic ulcer of other part of right lower leg with fat layer exposed (principal); R60.0 Localized edema; L03.115 Cellulitis of right lower limb
CPT/HCPCS: 11042; 99212; G0463